=== PATIENT | male | born 1965 | race Caucasian/White ===

== ENCOUNTER 2019-07-03 22:29 | Inpatient (IN) | payer MEDICARE, SELFPAY ==
[2019-07-04] VITALS (9 sets, daily range): BP systolic 107–143; BP diastolic 72–89; PULSE 67–91; RESP 15–19; TEMP 36.4–37.1; O2SAT 91–97
--- NOTE | 2019-07-04 01:35 | PC.NURSE ---
Late entry: during downtime critical blood sugar of 714. Dr. Reilly called see physician notification. Critical blood sugar and critical troponin did not reflux over at during this time due to down time. Troponin was 1057 and Delta was 1043.
--- NOTE | 2019-07-04 03:00 | ECG_ITS ---
Measurements Intervals [place] Rate: 74 P: -16 NH: 199 QRS: -51 QRSD: 110 T: 14 QT: 354 QTc: 395 SINUS RHYTHM PATTERN CONSISTENT WITH PULMONARY DISEASE INFERIOR MYOCARDIAL INFARCTION [40+ ms Q WAVE AND/OR ST/T ABNORMALITY IN II/aVF], OF OF OF OF OF INDETERMINATE AGE WITH POSTERIOR EXTENSION No previous ECG available for comparison [email or web address]
[2019-07-04 03:14] LABS: Add RBC Morph No
[2019-07-04 03:18] LABS: Basophils % 0.3 %; Hematocrit 36.1 % (42.0-52.0); Hemoglobin 12.3 g/dL (11.7-16.6); Lymphocytes # 3.4 10^3/uL (0.8-4.8); Mean Corpuscular HGB Conc 34.1 g/dL (30.0-36.0); Mean Corpuscular Hemoglobin 30.1 pg (28.0-34.0); Mean Corpuscular Volume 88.5 fL (80-94); Mean Platelet Volume 8.9 fL (7.4-10.4); Monocytes # 1.3 10^3/uL (0.2-0.9); Monocytes % 20.6 %; Neutrophils # 1.5 10^3/uL (1.8-7.7); Neutrophils % 23.7 %; Nucleated Red Blood Cells % 0 %; Platelet Count 200 10^3/cmm (130-400); Red Blood Count 4.08 10^6/uL (4.1-5.3); Red Cell Distribution Width 15.9 % (12.1-15.1); White Blood Count 6.3 10^3/uL (4.0-10.0)
[2019-07-04 03:35] LABS: Anion Gap 13.7 (5-19); Blood Urea Nitrogen 17 mg/dL (6-20); Calcium 9.1 mg/Dl (8.6-10.0); Carbon Dioxide 26 mmol/L (22-29); Chloride 93 mmol/L (98-107); Glomerular Filtration Rate 77.3 mL/min (90-130); Glucose 480 mg/dL (74-109); Potassium 4.7 mmol/L (3.5-5.1); Sodium 128 mmol/L (136-145)
[2019-07-04 03:48] LABS: Troponin 5 6HR 5265 ng/L (0-15)
[2019-07-04 03:56] LABS: Troponin 5 6HR Delta 5251 ng/L (0-12)
--- NOTE | 2019-07-04 04:32 | PC.NURSE ---
TR band off at this time. dressing applied. Aggrastat infusing as ordered at 19.4mls . No hematoma noted and dressing is clean, dry and intact. See chart for post cath vitals.
[2019-07-04] MEDS: oxyCODONE IR 30 mg Tablet PO (09:15)
[2019-07-04] MEDS: nicotine 21 mg Patch 1 PATCH TRANSDERMA (09:15)
[2019-07-04] MEDS: losartan 50 mg Tablet 25 MG PO (09:15)
[2019-07-04] MEDS: metoprolol tartrate 50 mg Tablet PO (09:15)
[2019-07-04] MEDS: PARoxetine 20 mg Tablet PO ×2 (09:16→18:22)
[2019-07-04] MEDS: baclofen 10 mg Tablet PO ×2 (09:17→18:22)
[2019-07-04] MEDS: clopidogrel 75 mg Tablet PO (09:17)
[2019-07-04] MEDS: aspirin 81 mg EC Tablet PO (09:17)
[2019-07-04] MEDS: omega-3 fatty acids 1,000 mg Capsule 1000 MG PO (09:17)
--- NOTE | 2019-07-04 09:40 | PM.PN ---
Subjective Subjective: Interval history: Maximino was admitted late last evening with an acute inferior wall OR. His right coronary artery was occluded and he underwent balloon angioplasty and stenting of the right. No complications. The procedure done from the right radial artery. Overnight no complications. He has had no heart failure and no arrhythmias. This morning he is free of any chest discomfort. The entry site of the right radial artery is flat, dry without hematoma or bleeding. Medications: Reviewed: Yes Vitals/I&O/Wt Last Vital Signs Temp 97.9 F 07/04/19 06:00 Pulse 73 07/04/19 06:00 Resp 17 07/04/19 06:00 BP 107/74 07/04/19 06:00 Pulse Ox 96 07/04/19 06:00 07/03/19 07/04/19 07/04/19 22:59 06:59 14:59 Intake Total 1500 / 1500 Balance 1500 / 1500 Weight last 48 hrs Weight 236 lb Physical Exam Narrative: EXAM NARRATIVE: GENERAL: Today he is comfortable at rest and without any chest pain HEENT: Exam within normal limits. NECK: Supple without jugular vein distention. The carotid upstroke is normal without bruits. BACK: Exam normal. LUNGS: Clear. HEART: Regular rate and rhythm. ABDOMEN: Benign without organomegaly or tenderness. EXTREMITIES: No edema. NEUROLOGIC: Exam normal. SKIN: Unremarkable. Data Labs: Other Labs: All Labs last 24 hrs except CBC/BMP 07/03/19 07/03/19 07/04/19 21:03 21:03 03:05 RBC 4.43 4.08 L MCV 90.5 88.5 MCH 29.3 30.1 MCHC 32.4 34.1 RDW 15.9 H 15.9 H MPV 9.0 8.9 Neut % (Auto) 27.1 23.7 Lymph % (Auto) 53.0 55.0 [place] % (Auto) 19.3 20.6 Eos % (Auto) 0.2 0.0 Baso % (Auto) 0.2 0.3 Neut # (Auto) 1.5 L 1.5 L Lymph # (Auto) 2.8 3.4 [place] # (Auto) 1.0 H 1.3 H Eos # (Auto) 0.0 0.0 Baso # (Auto) 0.0 0.0 Nucleated RBC % (a uto) 0 0 Nucleated RBCs # 0.0 0.0 GFR Calculation 57.1 L Random Glucose 861 H* Calcium 9.3 Total Bilirubin 0.2 AST 22 ALT 32 Alkaline Phosphata se 69 Troponin I 6 Hour Troponin I Hi Sens Del Troponin T Baselin e 14.00 Total Protein 7.3 Albumin 4.2 Globulin 3.1 07/04/19 07/04/19 03:05 03:05 RBC MCV MCH MCHC RDW MPV Neut % (Auto) Lymph % (Auto) [place] % (Auto) Eos % (Auto) Baso % (Auto) Neut # (Auto) Lymph # (Auto) [place] # (Auto) Eos # (Auto) Baso # (Auto) Nucleated RBC % (a uto) Nucleated RBCs # GFR Calculation 77.3 L Random Glucose Calcium 9.1 Total Bilirubin AST ALT Alkaline Phosphata se Troponin I 6 Hour 5265 H Troponin I Hi Sens Del 5251 H Troponin T Baselin e Total Protein Albumin Globulin A&P Assessment and plan (1) Acute ST elevation myocardial infarction (STEMI) of inferior wall: Status: Acute Code(s): I21.19 - ST elevation (STEMI) myocardial infarction involving other coronary artery of inferior wall (2) Diabetes mellitus: Status: Acute Code(s): E11.9 - Type 2 diabetes mellitus without complications (3) Coronary artery disease: Status: Acute Code(s): I25.10 - Atherosclerotic heart disease of [place] coronary artery without angina pectoris (4) Rheumatoid arthritis: Status: Acute Code(s): M06.9 - Rheumatoid arthritis, unspecified (5) Anemia: Status: Acute Code(s): D64.9 - Anemia, unspecified (6) Hypertension: Status: Acute Code(s): I10 - Essential (primary) hypertension (7) Dyslipidemia: Status: Acute Code(s): E78.5 - Hyperlipidemia, unspecified (8) Tobacco abuse: Status: Acute Code(s): Z72.0 - Tobacco use (9) COPD (chronic obstructive pulmonary disease): Status: Acute Code(s): J44.9 - Chronic obstructive pulmonary disease, unspecified (10) Obesity: Status: Acute Code(s): E66.9 - Obesity, unspecified (11) Chronic kidney disease: Status: Acute Code(s): N18.9 - Chronic kidney disease, unspecified (12) Dilutional hyponatremia: Status: Acute Code(s): E87.1 - Hypo-osmolality and hyponatremia Additional A&P Information Additional A&P Information: He is doing well today. No further chest pain. We will make proper medication adjustments. Still holding metformin and using insulin. Activity today. If well, discharge home tomorrow. Attestations Medical Necessity Statement*: Patient requires continued hospitalization for management of an acute inferior wall OR and severe elevations of blood sugar. 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
[2019-07-04 12:31] LABS: Glucose Point of Care 278 mg/dL (70-110)
[2019-07-04 17:34] LABS: Glucose Point of Care 158 mg/dL (70-110)
[2019-07-04] MEDS: atorvastatin 40 mg Tablet 80 MG PO (21:05)
[2019-07-04 21:13] LABS: Glucose Point of Care 172 mg/dL (70-110)
[2019-07-04] MEDS: ondansetron 2 mg/ML SDV 2 mL 4 MG IVP (22:19)
[2019-07-05] VITALS: BP 105/63; RESP 16; TEMP 36.8; O2SAT 96
[2019-07-05 04:00] VITALS: BP 127/80; PULSE 91; RESP 18; TEMP 36.6; O2SAT 90
[2019-07-05 07:30] LABS: Glucose Point of Care 184 mg/dL (70-110)
--- NOTE | 2019-07-05 07:54 | P.DS_ITS ---
Discharge Providers Date of Admission: 07/03/19 22:29 Date of Discharge: 07/05/19 Attending Provider at Admission: Rolando Kaufman Attending Provider at Discharge: Rolando Kaufman Primary Care Provider: Stephany Villalpando Diagnoses at Discharge Discharge Diagnosis (1) Acute ST elevation myocardial infarction (STEMI) of inferior wall: Status: Acute (2) Diabetes mellitus: Status: Acute (3) Coronary artery disease: Status: Acute (4) Rheumatoid arthritis: Status: Acute (5) Anemia: Status: Acute (6) Hypertension: Status: Acute (7) Dyslipidemia: Status: Acute (8) Tobacco abuse: Status: Acute (9) COPD (chronic obstructive pulmonary disease): Status: Acute (10) Obesity: Status: Acute (11) Chronic kidney disease: Status: Acute (12) Dilutional hyponatremia: Status: Acute Reason for Visit Reason for Visit: Reason For Visit: Stemi Brief History: Patient arrives on July 03 with chest pain typical of myocardial infarction. EKG revealed ST segment elevation in the inferior leads. Patient was hemodynamically stable. He received the appropriate medications in the emergency room and was directed to the cardiac catheterization laboratory. Hospital Course Hospital Course: Patient was taken directly to the cardiac catheterization laboratory. His right coronary artery was occluded in the midportion just beyond the previously placed stent. Balloon angioplasty and subsequent restenting of the area was accomplished without incident. The procedure was done from the right radial artery. No complications were encountered. Patient had no arrhythmias, heart block or congestive heart failure. The right radial artery entry site was without bleeding, hematoma or other vascular anomaly. The remainder of the hospital course was unremarkable without complication. Physical Exam Narrative: EXAM NARRATIVE: GENERAL: In general he looks and feels well HEENT: Exam within normal limits. NECK: Supple without jugular vein distention. The carotid upstroke is normal without bruits. BACK: Exam normal. LUNGS: Clear. HEART: Regular rate and rhythm. ABDOMEN: Benign without organomegaly or tenderness. EXTREMITIES: No edema. NEUROLOGIC: Exam normal. SKIN: Unremarkable. Discharge Data Data Completed and Pending: Labs from last 24 hours 07/05/19 07/04/19 07/04/19 07:15 21:07 17:20 POC Glucose 184 172 158 07/04/19 11:47 POC Glucose 278 Vitals: Last Vital Signs Temp 98 F 07/05/19 04:00 Pulse 91 07/05/19 04:00 Resp 18 07/05/19 04:00 BP 127/80 07/05/19 04:00 Pulse Ox 90 07/05/19 04:00 Discharge Plan Discharge Patient Disposition: Home, Self-Care Condition: Stable Prescriptions: New aspirin 81 mg Tablet,Delayed Release (Dr/Ec) 81 mg PO DAILY Qty: 30 RF: 8 metoprolol tartrate 50 mg Tablet 50 mg PO BID Qty: 60 RF: 12 clopidogrel 75 mg Tablet 75 mg PO DAILY Qty: 30 RF: 12 metformin 500 mg tablet 1,000 mg PO BID Qty: 60 RF: 3 Continued omega-3 fatty acids 1,000 mg Capsule 1,000 mg PO DAILY RF: 0 sulfamethoxazole-trimethoprim 800-160 mg Tablet 1 tab PO QMWF RF: 0 methotrexate sodium 2.5 mg Tablet See Rx Instructions .ROUTE .COMPLEX RF: 0 pantoprazole 40 mg Tablet,Delayed Release (Dr/Ec) 40 mg PO BID RF: 0 Nitrostat 0.4 mg Tablet, Sublingual 0.4 mg SUBLINGUAL Q5M PRN (Reason: Chest Pain) RF: 0 irbesartan 75 mg Tablet 75 mg PO DAILY RF: 0 lovastatin 20 mg Tablet 20 mg PO BEDTIME RF: 0 magnesium oxide 250 mg magnesium Tablet 250 mg PO BID RF: 0 tizanidine 4 mg Capsule 4 mg PO DAILY PRN (Reason: MUSCLE SPASMS) RF: 0 folic acid 0.8 mg Capsule 0.4 mg PO DAILY RF: 0 duloxetine 30 mg Capsule, Delayed Rel Sprinkle 30 mg PO BID RF: 0 Saccharomyces boulardii 250 mg 250 mg PO DAILY RF: 0 Discontinued metformin 500 mg Tablet 500 mg PO BID RF: 0 Discharge Orders: Discharge Order (Routine); Ordered 07/05/19 Ordered By: Rolando Kaufman Referrals: Rolando Kaufman MD [Physician] - 3 months Cheryl Weeks FNP [Nurse Practitioner] - 7-10 days Discharge Diet: Diabetic Activity Restrictions/Additional Instructions: 1. No lifting over 10 pounds for two days. Gradually increase activity over the next week or 2. Hold metformin for 2 days. Restart July 07 at the increased dose of 1000 mg twice daily Discharge Attestations Time Spent in Discharge Care*: greater than 30 min Specific Discharge Activities: Specific discharge activities: educating patient, educating and/or supporting family/caregiver and documenting/other paperwork Time Spent in Smoking Cessation: Time spent discussing smoking cessation with patient: 3 to 10 minutes Status at Discharge: Cognitive status at discharge: cognitively intact , Behavioral status at discharge: cooperative , Functional status at discharge: independent ambulation Overall status at discharge: patient is back to baseline Quality Metrics Clinical Quality Measures During this hospital stay, did patient experience: AMI Clinical Trial Participant: No Contraindication to aspirin (AMI): Aspirin given Contraindication to statin: Statin prescribed Contraindication to PCI: PCI performed Contraindication to Fibrinolytics: Alternative treatment initiated Coding Level of Care Code New Pt Acute Mental Health Professional for Chg Fwd Patient Type New Medical Decision Making Moderate Complexity Diagnoses Acute ST elevation myocardial infarction (STEMI) of inferior wall I21.19 Diabetes mellitus E11.9 Coronary artery disease I25.10 Rheumatoid arthritis M06.9 Anemia D64.9 Hypertension I10 Dyslipidemia E78.5 Tobacco abuse Z72.0 COPD (chronic obstructive pulmonary disease) J44.9 Obesity E66.9 Chronic kidney disease N18.9 Dilutional hyponatremia E87.1 Time Spent (min) 60
[2019-07-05 08:19] VITALS: BP 124/77; PULSE 101; RESP 18; O2SAT 95
[2019-07-05 08:47] VITALS: BP 124/77; PULSE 86; RESP 15; TEMP 37.1; O2SAT 96
[2019-07-05] MEDS: metoprolol tartrate 50 mg Tablet PO (09:20)
[2019-07-05] MEDS: losartan 50 mg Tablet 25 MG PO (09:21)
[2019-07-05] MEDS: pneumococcal (23 valent) SDV 0.5 mL IM (09:23)
--- NOTE | 2019-07-05 09:32 | PC.NURSE ---
PATIENT AND GIVEN DISCHARGE INSTRUCTIONS AND BOTH VERBALIZED UNDERSTANDING ; VSS ; IV X2 REMOVED AND PRESSURE DRESSING APPLIED WITH NO BLEEDING NOTED ; DISTAL PULSES PRESENT ; PATIENT DENIES ANY SOB OR CP AT THIS TIME ; PATIENT REQUESTED TO AMBULATE TO EXIT ; PATIENT TO POV WITH NO ISSUES
--- NOTE | 2019-07-05 09:42 | PC.NURSE ---
4 NEW RX WERE NOT TRANSMITTED ; SUPER USER NOTIFIED ; 4 NEW RX PHONED INTO PREFERRED PHARMACY
== END 2019-07-05 09:18 | disposition home or self-care (01) | DRG 247 ==
PROVIDERS: Admitting Provider Internal Medicine Cardiovascular Disease; Emergency Provider Emergency Medicine; Family Provider Nurse Practitioner; PCP Nurse Practitioner; Visit Provider Internal Medicine Cardiovascular Disease
DX: I21.19 ST elevation (STEMI) myocardial infarction involving other coronary artery of inferior wall (principal); E87.1 Hypo-osmolality and hyponatremia; I25.10 Atherosclerotic heart disease of native coronary artery without angina pectoris; I25.2 Old myocardial infarction; M06.9 Rheumatoid arthritis, unspecified; E11.22 Type 2 diabetes mellitus with diabetic chronic kidney disease; I12.9 Hypertensive chronic kidney disease with stage 1 through stage 4 chronic kidney disease, or unspecified chronic kidney disease; N18.9 Chronic kidney disease, unspecified; E78.5 Hyperlipidemia, unspecified; F17.210 Nicotine dependence, cigarettes, uncomplicated; E66.9 Obesity, unspecified; Z68.35 Body mass index [BMI] 35.0-35.9, adult; G89.29 Other chronic pain; D64.9 Anemia, unspecified; J44.9 Chronic obstructive pulmonary disease, unspecified
CPT/HCPCS: 36415; 36416; 71045; 80048; 80053; 82947; 82962; 84484; 85025; 90732; 93005; 93458; 96374; 99285; C1725; C1769; C1874; C1887; C1894; C9606; J1644; J1815; J2001; J2250; J2405; J3010; J3246; J3490; Q9967

== ENCOUNTER → 2019-07-16 11:25 | Outpatient (BNVA) | payer MEDICARE, SELFPAY | PROVIDERS: Family Provider Nurse Practitioner; PCP Nurse Practitioner; Visit Provider Nurse Practitioner Family | DX: Z09 Encounter for follow-up examination after completed treatment for conditions other than malignant neoplasm (principal); I25.10 Atherosclerotic heart disease of native coronary artery without angina pectoris; I21.19 ST elevation (STEMI) myocardial infarction involving other coronary artery of inferior wall; E78.5 Hyperlipidemia, unspecified; I12.9 Hypertensive chronic kidney disease with stage 1 through stage 4 chronic kidney disease, or unspecified chronic kidney disease; N18.9 Chronic kidney disease, unspecified | CPT/HCPCS: 80048 ==

== ENCOUNTER → 2019-08-31 11:17 | Outpatient (BNVA) | payer MEDICARE, SELFPAY | PROVIDERS: Family Provider Nurse Practitioner; PCP Nurse Practitioner; Visit Provider Nurse Practitioner | DX: E78.5 Hyperlipidemia, unspecified (principal); E11.9 Type 2 diabetes mellitus without complications; I10 Essential (primary) hypertension; D72.820 Lymphocytosis (symptomatic) | CPT/HCPCS: 80053; 80061; 83036; 85025 ==

== ENCOUNTER → 2019-09-24 10:51 | Outpatient (BNVA) | payer MEDICARE, SELFPAY | PROVIDERS: Family Provider Nurse Practitioner; PCP Nurse Practitioner; Visit Provider Nurse Practitioner | DX: D64.9 Anemia, unspecified (principal) | CPT/HCPCS: 85025 ==

== ENCOUNTER → 2019-10-16 11:43 | Outpatient (BNVA) | payer MEDICARE, SELFPAY | PROVIDERS: Family Provider Nurse Practitioner; PCP Nurse Practitioner; Visit Provider Nurse Practitioner | DX: D72.820 Lymphocytosis (symptomatic) (principal); D64.9 Anemia, unspecified | CPT/HCPCS: 80053; 85025 ==

== ENCOUNTER → 2019-10-18 14:46 | Outpatient (BNVA) | payer MEDICARE, SELFPAY | PROVIDERS: Family Provider Nurse Practitioner; PCP Nurse Practitioner; Visit Provider Nurse Practitioner | DX: D72.820 Lymphocytosis (symptomatic) (principal) | CPT/HCPCS: 83615 ==

== ENCOUNTER → 2019-10-19 09:55 | Outpatient (BNVA) | payer MEDICARE, SELFPAY | PROVIDERS: Family Provider Nurse Practitioner; PCP Nurse Practitioner; Visit Provider Nurse Practitioner | DX: D64.9 Anemia, unspecified (principal) | CPT/HCPCS: 85025 ==

== ENCOUNTER → 2019-11-21 09:48 | Outpatient (BNVA) | payer MEDICARE, SELFPAY | PROVIDERS: Family Provider Nurse Practitioner; PCP Nurse Practitioner; Visit Provider Internal Medicine | DX: D72.820 Lymphocytosis (symptomatic) (principal) | CPT/HCPCS: 80053; 83615; 85025 ==

== ENCOUNTER → 2020-01-14 11:02 | Outpatient (BNVA) | payer MEDICARE, SELFPAY | PROVIDERS: Family Provider Nurse Practitioner; PCP Nurse Practitioner; Visit Provider Nurse Practitioner | DX: E11.9 Type 2 diabetes mellitus without complications (principal); F41.1 Generalized anxiety disorder; I10 Essential (primary) hypertension; E78.5 Hyperlipidemia, unspecified; K21.9 Gastro-esophageal reflux disease without esophagitis; M54.5 Low back pain; E66.9 Obesity, unspecified; Z12.5 Encounter for screening for malignant neoplasm of prostate; M06.9 Rheumatoid arthritis, unspecified | CPT/HCPCS: 80053; 82955; 83036; 83615; 85025; G0103 ==

== ENCOUNTER → 2020-02-26 10:15 | Outpatient (BNVA) | payer MEDICARE, SELFPAY | PROVIDERS: Family Provider Nurse Practitioner; PCP Nurse Practitioner; Visit Provider Internal Medicine | DX: D72.820 Lymphocytosis (symptomatic) (principal) | CPT/HCPCS: 80053; 83615; 85025 ==

== ENCOUNTER → 2020-03-28 09:56 | Outpatient (BNVA) | payer MEDICARE, SELFPAY | PROVIDERS: PCP Nurse Practitioner; Visit Provider Family Medicine | DX: M05.9 Rheumatoid arthritis with rheumatoid factor, unspecified (principal) | CPT/HCPCS: 80053; 85025 ==

== ENCOUNTER → 2020-04-29 13:39 | Outpatient (BNVA) | payer MEDICARE, SELFPAY | PROVIDERS: PCP Nurse Practitioner; Visit Provider Internal Medicine | DX: D72.820 Lymphocytosis (symptomatic) (principal) | CPT/HCPCS: 80053; 83615; 85007 ==

== ENCOUNTER → 2020-05-21 08:31 | Outpatient (BNVA) | payer MEDICARE, SELFPAY | PROVIDERS: PCP Nurse Practitioner; Visit Provider Nurse Practitioner Family | DX: Z20.828 Contact with and (suspected) exposure to other viral communicable diseases (principal) | CPT/HCPCS: 87635 ==

== ENCOUNTER → 2020-05-27 13:32 | Outpatient (BNVA) | payer MEDICARE, SELFPAY | PROVIDERS: PCP Nurse Practitioner; Visit Provider Internal Medicine | DX: D72.820 Lymphocytosis (symptomatic) (principal) | CPT/HCPCS: 80053; 83615; 85025 ==

== ENCOUNTER → 2020-06-18 11:21 | Outpatient (BNVA) | payer MEDICARE, SELFPAY | PROVIDERS: PCP Nurse Practitioner; Visit Provider Nurse Practitioner Adult Health | DX: M05.79 Rheumatoid arthritis with rheumatoid factor of multiple sites without organ or systems involvement (principal); Z79.899 Other long term (current) drug therapy | CPT/HCPCS: 82784; 82785; 86480; 86704; 86706; 86803; 87340; 87389 ==

== ENCOUNTER → 2020-07-01 10:00 | Outpatient (BNVA) | payer MEDICARE, SELFPAY | PROVIDERS: PCP Nurse Practitioner; Visit Provider Family Medicine | DX: D72.820 Lymphocytosis (symptomatic) (principal) | CPT/HCPCS: 80053; 83615; 85025 ==

== ENCOUNTER → 2020-08-11 11:13 | Outpatient (BNVA) | payer MEDICARE, SELFPAY | PROVIDERS: PCP Family Medicine; Visit Provider Surgery | DX: R13.10 Dysphagia, unspecified (principal) | CPT/HCPCS: 87635 ==

== ENCOUNTER 2020-08-14 08:14 | Day surgery (SDC) | payer MEDICARE, SELFPAY ==
[2020-08-04 09:55] VITALS: BMI 31.4
[2020-08-14 08:55] VITALS: BP 116/78; PULSE 73; RESP 18; TEMP 37; O2SAT 99
[2020-08-14] MEDS: sodium chloride 0.9% 1,000 ML 30 ML IV (09:07)
[2020-08-14 09:11] LABS: Glucose Point of Care 84 mg/dL (70-110)
--- NOTE | 2020-08-14 09:20 | P.HP_ITS ---
Same Day Surgery H&P Indication for Procedure/HPI DATE OF PROCEDURE: August 14, 2020 CHIEF COMPLAINT/INDICATIONFOR SURGICAL PROCEDURE: dysphagia PREOP DIAGNOSIS: panendoscopy PLANNED PROCEDRUE: Operation Date: 08/14/20 09:35 Proposed Procedures p EGD Dilation W/ Balloon 81589 R13.10(Not Applicable) - Wayne Banks MD Medications/Allergies* Home Medications Medication Instructions Recorded Confirmed Type folic acid 0.4 mg PO DAILY 07/04/19 08/12/20 History magnesium oxide 250 mg PO BID 07/04/19 08/12/20 History nitroglycerin [Nitrostat] 0.4 mg SUBLINGUAL Q5M PRN 07/04/19 08/12/20 History hydroxychloroquine 200 mg tablet 400 mg PO DAILY tab 07/16/19 08/12/20 History methotrexate sodium 2.5 mg tablet 12.5 mg .ROUTE .bid once a week 09/06/19 08/12/20 History tab prednisone 5 mg tablet 5 mg PO DAILY tab 05/21/20 08/12/20 History esomeprazole magnesium 40 mg 40 mg PO DAILY 06/23/20 08/12/20 History capsule,delayed release Allergies/Adverse Reactions Allergy/AdvReac Type Severity Reaction Status Date / Time lisinopril Allergy Intermediate ADR-Cough Verified 08/12/20 13:38 Current Medications: Generic Name Dose Route Start Last Admin Trade Name Freq PRN Reason Stop Dose Admin Sodium Chloride 1,000 mls @ 30 mls/hr 08/14/20 08:45 08/14/20 09:07 Sodium Chloride 0.9% IV 08/15/20 08:44 30 mls/hr .Q24H DANIEL Administration Pertinent History/Comorbid Conditions* Medical History (Updated 07/14/20 @ 11:10 by Wayne Banks MD) Anemia Atypical lymphocytosis Chronic kidney disease COPD (chronic obstructive pulmonary disease) Coronary artery disease Diabetes mellitus Dilutional hyponatremia (~07/2019) Dyslipidemia Gastro-esophageal reflux disease without esophagitis Generalized anxiety disorder History of heart attack Hypertension Lumbago Rheumatoid arthritis Surgical History (Updated 09/23/19 @ 22:28 by DAVID Davies) H/O heart artery stent History of colonoscopy History of endoscopy Family History (Updated 09/23/19 @ 22:26 by Glennette R Kwasi, MEDIA LIAISON OFFICER-C) Diabetes Family/Other Family members in general Hypothyroid Family/Other Family members in general Cancer Family/Other Family members in general Social History Smoking and tobacco status: current some day smoker cigarettes Packs smoked per day: 1 Years cigarettes smoked: 30 Quit status (tobacco): quit date established Second hand smoke exposure: No Smoking risk assessment/counseling performed?: No Alcohol intake: never Desire information about alcohol rehabilitation?: No Counseling given: No Desire information about substance/drug rehabilitation?: No Counseling given: No Caregiver/support person: No Lives independently: Yes Household members: significant other Marital status: Single History of recent travel: No Current gender identity: Male Pertinent Exam Findings alert, oriented x 3 and regular rate & rhythm Recommendations Surgery/Procedure today Coding Level of Care Code 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
--- NOTE | 2020-08-14 09:48 | ANES.PREANE2 ---
Pre-Anesthetic Assessment Pre-Anesthetic Assessment: Height/Weight: Height 1.75 m Weight 96.615 kg Temp Pulse Resp BP Pulse Ox 98.6 F 73 18 116/78 99 08/14/20 08:55 08/14/20 08:55 08/14/20 08:55 08/14/20 08:55 08/14/20 08:55 Preop Diagnosis: panendoscopy Proposed Procedure: Operation Date: 08/14/20 09:35 Proposed Procedures p EGD Dilation W/ Balloon 90105 R13.10(Not Applicable) - Wayne Banks MD Was Beta Jenna taken within 24 hours: N/A Last intake: Intake Last Liquid Date 08/14/20 Last Liquid Time 06:30 Last Solid Date 08/13/20 Last Solid Time 18:00 Social: Social History: Tobacco and No alcohol Exam: Pre-Anes Outpt Exam: alert, oriented x 3 and regular rate & rhythm Airway: Submandibular: WNL Cervical ROM: WNL MP: 2 Dentition: Full Pulmonary: Pulmonary: COPD CV/HEM: CV/HEM: Anemia, CAD (stents), HTN and TX : : Chronic renal Insufficiency Musc/skel: Musc/skel: RA Neuropsych: Neuropsych: Anxiety Anesthetic Plan: ASA status: 3 Anesthesia: Choice Risk of > 500 ml blood loss (7ml/kg in children): No Meds/Allergies Current Medications: Current Medications Generic Name Dose Route Start Last Admin Trade Name Freq PRN Reason Stop Dose Admin Sodium Chloride 1,000 mls @ 30 ml s/hr 08/14/20 08:45 08/14/20 09:07 Sodium Chloride 0.9% IV 08/15/20 08:44 30 mls/hr .Q24H DANIEL Administration PFSH Anesthesia PFSH: Medical History (Updated 07/14/20 @ 11:10 by Wayne Banks MD) Anemia Atypical lymphocytosis Chronic kidney disease COPD (chronic obstructive pulmonary disease) Coronary artery disease Diabetes mellitus Dilutional hyponatremia (~07/2019) Dyslipidemia Gastro-esophageal reflux disease without esophagitis Generalized anxiety disorder History of heart attack Hypertension Lumbago Rheumatoid arthritis Surgical History H/O heart artery stent History of colonoscopy History of endoscopy Family History Family/Other Cancer Family members in general Diabetes Family members in general Hypothyroid Family members in general Social History Smoking and tobacco status: current some day smoker cigarettes Packs smoked per day: 1 Years cigarettes smoked: 30 Quit status (tobacco): quit date established Second hand smoke exposure: No Smoking risk assessment/counseling performed?: No Alcohol intake: never Desire information about alcohol rehabilitation?: No Counseling given: No Desire information about substance/drug rehabilitation?: No Counseling given: No Caregiver/support person: No Lives independently: Yes Household members: significant other Marital status: Single History of recent travel: No Current gender identity: Male Data Anesthesia Other Labs: Laboratory Results - last 48 hr 08/14/20 09:06 POC Glucose 84 Cardiac Studies: No Data to Display
[2020-08-14 11:04] VITALS: BP 107/67; PULSE 68; RESP 16; TEMP 36.4; O2SAT 99
--- NOTE | 2020-08-14 11:06 | CT_ITS ---
WS: [id number] CT CHEST, ABDOMEN, AND PELVIS TECHNIQUE: Contrast-enhanced CT of the chest, abdomen, and pelvis with coronal and sagittal reformatt ed images. CLINICAL INFORMATION: Esophageal mass on EGD COMPARISON: CT chest and CT September 22, 2017 DLP: 2059.[address] scans at [facility] use at least one of these dose optimization techniques: automat ed exposure control; mA and/or kV adjustment per patient size (includes targeted exams where dose is matched to clinical indication); or iterative reconstruction. CT CHEST: Mild chronic emphysematous changes. No acute pulmonary infiltrates. No focal pneumonia or pleural flu id. Noncalcified subpleural nodule in the left upper lobe measuring 5 mm. This is unchanged from prev ious. Noncalcified 3 mm nodule left lower lobe unchanged. Additional tiny subpleural nodule left uppe r lobe. Calcified granuloma left lower lobe. Normal thyroid gland. Normal caliber thoracic aorta. Aortic calcification. Coronary calcification. No axillary lymphadenopathy. No mediastinal or hilar lymphadenopathy. Diffuse circumferential thickening involving the distal esophagus at the gastroesophageal junction co mpatible with neoplasm seen on the recent endoscopy. Associated luminal narrowing. A few slightly pro minent paraesophageal lymph nodes distal third esophagus. Largest measures [address] ABDOMEN AND PELVIS: Normal liver. Normal gallbladder. Portal veins and splenic vein are patent. Normal spleen and superio r mesenteric vein. Splenic granulomas. A few slightly enlarged upper abdominal lymph nodes along the celiac axis and [place] hepatis largest measuring up to 11 to 12 mm. Sigmoid diverticulosis. No evidence of small or large bowel obstruction. Scattered stool in the colon . Incidental fat-containing umbilical hernia. Normal caliber abdominal aorta. Mild aortic calcificati on. No periaortic or retroperitoneal lymphadenopathy. Adrenal glands are normal. Normal renal parenchymal enhancement. No hydronephrosis. No pelvic or ingu inal lymphadenopathy. Disc osteophyte complexes at L2-L3, L3-L4 and L4-L5 in the lumbar spine with mo derate central canal stenosis. CT/CT chest abd pel w con* IMPRESSION: 1. Diffuse circumferential thickening involving the distal esophagus at the GE junction compatible with neoplasm as seen on the recent endoscopy. 2. A few prominent paraesophageal lymph nodes in the distal one third esophagu s largest measuring 11 mm. These are nonspecific but consider metastatic diseas e. Recommend PET CT for further evaluation. 3. Additional slightly enlarged upper abdominal lymph nodes along the celiac a xis and [place] hepatis the largest measuring 11 to 12 mm nonspecific but suspici ous for metastatic disease. 4. No other evidence of metastatic disease. 5. No mediastinal or hilar lymphadenopathy. No axillary lymphadenopathy. 6. Stable subcentimeter pulmonary nodules in the left upper lobe and left lowe r lobe the largest measuring 5 mm unchanged. 7. No other significant findings.
[2020-08-14 11:19] VITALS: BP 96/53; PULSE 66; RESP 18; TEMP 36.3; O2SAT 100
--- NOTE | 2020-08-14 11:43 | SUR.PHASEII ---
patient re-evaluated by doctor Banks. Patient awaiting CT scan.
--- NOTE | 2020-08-14 11:48 | SUR.PHASEII ---
11:35 oral contrast given for patient s ct at 13:00.
--- NOTE | 2020-08-14 12:03 | ANE.PACU2 ---
Inpatient post-anesthesia follow up: Airway intact: Yes Vital signs: Temperature 97.4 F Pulse Rate 66 Respiratory Rate 18 Blood Pressure 96/53 Pulse Oximetry 100 Oxygen Delivery Me thod Room Air Oxygen Flow Rate 4 Fraction of Inspir ed Oxygen Hydration adequate: Yes Nausea and vomiting: No Pain level: 1 Mental status: Baseline
[2020-08-14 12:11] VITALS: BP 114/68; PULSE 58; RESP 18; O2SAT 98
[2020-08-14] MEDS: iohexol 300 mg/mL 100 mL Btl IV (13:02)
[2020-08-14] MEDS: iohexol 300 mg/mL 50 mL Btl PO (13:06)
[2020-08-25 06:29] LABS: Miscellaneous Test See Scanned Lab Rpt
[2020-08-25 06:30] LABS: Miscellaneous Test See Scanned Lab Rpt
== END 2020-08-14 13:29 | disposition home or self-care (01) ==
PROVIDERS: PCP Family Medicine; Visit Provider Surgery
DX: C15.9 Malignant neoplasm of esophagus, unspecified (principal); R13.10 Dysphagia, unspecified; J44.9 Chronic obstructive pulmonary disease, unspecified; I25.10 Atherosclerotic heart disease of native coronary artery without angina pectoris; E78.5 Hyperlipidemia, unspecified; E11.22 Type 2 diabetes mellitus with diabetic chronic kidney disease; I12.9 Hypertensive chronic kidney disease with stage 1 through stage 4 chronic kidney disease, or unspecified chronic kidney disease; N18.9 Chronic kidney disease, unspecified; F41.9 Anxiety disorder, unspecified; I25.2 Old myocardial infarction; M06.9 Rheumatoid arthritis, unspecified; F17.210 Nicotine dependence, cigarettes, uncomplicated; Z95.5 Presence of coronary angioplasty implant and graft
CPT/HCPCS: 12345; 36416; 43239; 71260; 74177; 82962; 88305; 88341; 88342; 88361; 88367; 88374; J2704; J7030; Q9967

== ENCOUNTER 2020-08-22 09:18 | Outpatient (CLI) | payer MEDICARE, SELFPAY ==
[2020-08-22 09:54] LABS: Basophils % 0.8 %; Eosinophils # 0.1 10^3/uL (0.0-0.8); Eosinophils % 1.3 %; Hematocrit 34.2 % (42.0-52.0); Lymphocytes # 1.8 10^3/uL (0.8-4.8); Lymphocytes % 45.3 %; Mean Corpuscular HGB Conc 29.2 g/dL (30.0-36.0); Mean Corpuscular Hemoglobin 25.3 pg (28.0-34.0); Mean Corpuscular Volume 86.6 fL (80-94); Mean Platelet Volume 8.3 fL (7.4-10.4); Monocytes # 0.8 10^3/uL (0.2-0.9); Monocytes % 19.7 %; Neutrophils # 1.29 10^3/uL (1.8-7.7); Neutrophils % 32.6 %; Nucleated Red Blood Cells % 0 %; Platelet Count 352 10^3/cmm (130-400); Red Blood Count 3.95 10^6/uL (4.1-5.3); Red Cell Distribution Width 22.2 % (12.1-15.1)
[2020-08-22 10:11] LABS: Lactate (Lactic Acid level) 1.5 mmol/L (0.5-2.2)
[2020-08-22 10:32] LABS: Alanine Aminotransferase 12 U/L (0-41); Albumin Level 3.9 g/dL (3.5-5.2); Alkaline Phosphatase 81 IU/L (40-130); Anion Gap 12.9 (5-19); Aspartate Amino Transferase 18 U/L (0-40); Blood Urea Nitrogen 11 mg/dL (6-20); Calcium 8.9 mg/dL (8.5-10.5); Carbon Dioxide 29 mmol/L (22-29); Chloride 98 mmol/L (98-107); Globulin 3.4 g/dL (1.3-4.6); Glucose 76 mg/dL (65-115); Osmolality Calculated 280 mOsm/kg (285-295); Potassium 3.9 mmol/L (3.5-5.1); Sodium 136 mmol/L (136-145); Thyroid Stimulating Hormone 5.27 uIU/mL (0.27-4.20); Total Bilirubin 0.2 mg/dL (0.15-1.2); Total Protein 7.3 g/dL (6.6-8.7); Vitamin B12 731 pg/mL (232-1245)
[2020-08-22 11:00] LABS: Folate Level > 20.0 ng/mL (4.5-32.2)
== END 2020-08-22 09:19 | disposition home or self-care (01) ==
LOC: ONCMED 09:22
PROVIDERS: PCP Family Medicine; Visit Provider Internal Medicine
DX: C91.Z0 Other lymphoid leukemia not having achieved remission (principal); D50.9 Iron deficiency anemia, unspecified
CPT/HCPCS: 80053; 82607; 82746; 83605; 84443; 85025

== ENCOUNTER 2020-09-16 09:39 | Outpatient (CLI) | payer MEDICARE, SELFPAY ==
[2020-09-16 10:11] LABS: Basophils % 0.6 %; Eosinophils # 0.1 10^3/uL (0.0-0.8); Eosinophils % 1.5 %; Hematocrit 34.2 % (42.0-52.0); Lymphocytes # 2.6 10^3/uL (0.8-4.8); Lymphocytes % 55.1 %; Mean Corpuscular HGB Conc 29.2 g/dL (30.0-36.0); Mean Corpuscular Hemoglobin 25.8 pg (28.0-34.0); Mean Corpuscular Volume 88.1 fL (80-94); Mean Platelet Volume 8.2 fL (7.4-10.4); Monocytes # 0.6 10^3/uL (0.2-0.9); Monocytes % 12.4 %; Neutrophils # 1.42 10^3/uL (1.8-7.7); Neutrophils % 30.4 %; Nucleated Red Blood Cells % 0 %; Platelet Count 281 10^3/cmm (130-400); Red Blood Count 3.88 10^6/uL (4.1-5.3); Red Cell Distribution Width 19.9 % (12.1-15.1); White Blood Count 4.7 10^3/uL (4.0-10.0)
--- NOTE | 2020-09-19 12:13 | ONC FU_ITS ---
Dr. Ramachandran follow up note Patient: Maximino Sandoval Unit #: [id number]: [id number] Dicatated By: Asaf Ramachandran M.D.Date of Visit:Sep 16, 2020 Onc Med Follow-up/Prog Note History of Present Illness: Mr. Maximino Sandoval, is a 55-year-old gentleman with history of T- LGL, on methotrexate/prednisone started on April 27, 2019, ultrasound abdomen done on August 01, 2020 showed spleen size normal. And history of rheumatoid arthritis diagnosed in 2004 now on prednisone, HCQ, methotrexate, Patient underwent EGD on August 14, 2020 for macrocytic anemia and progressive dysphagia, which showed at 35 cm from incisors esophageal thickening have circumferential, friable, easily bleeding lesion biopsy was done which showed moderately poorly differentiated invasive adenocarcinoma, CT scan of chest abdomen pelvis done on 11/11/2020 showed diffuse circumferential distal esophageal/GE junction thickening, few enlarged paraesophageal lymph nodes largest is 1.1 cm, slightly enlarged celiac and quinton hepatic lymph nodes and subcentimeter lung nodules left upper lobe and left lower lobe less than 5 mm. On September 11, [address] PET scan at [facility] which showed metastatic disease above and below diaphragm including multiple abdominal lymph nodes, hepatic lesions, largest is 3.3 x 3.1 cm with hepatic segment 7 SUV 11.1 osseous metastatic disease, lytic lesion centered in C5 vertebral body and left L2 pedicle and in the right fourth rib anterior his labs checked on 09/19/2017 showed white blood count 8.5 hemoglobin 10.2 crit 31.2 MCV 82.8 platelet counts 568,000 and B12 was 462 iron was 11 normal being 65-175 reticulocyte count was 1.1 ferritin was 382.4 normal being 26 to 388, folate was 9.20 reticulocyte count was 1.1 His hemoglobin improved to 11.5 g on 10/26/2017 with discontinue of methotrexate and thrombocytosis also resolved and at that time patient was advised to follow with his PMD and to come to clinic on as-needed basis. 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 Patient was sent to hematology clinic for evaluation for neutropenia. As per patient xeljanz was discontinued month ago e.g. prior to this lab workup. Patient denies any specific complaints, no fever or chills, no nausea or vomiting, no sore throat, patient is on steroids for arthritis Skin biopsy from left subaxillary area done on 02/05/2019 showed chronic inflammation now being treated with topical agent per Dr. Haley hired hand in [facility]. 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 A reactive process cannot be entirely excluded No night sweats, no fever or chills, no weight loss, no peripheral lymphadenopathy. Came for follow-up, complaining of mild to moderate dysphagia to certain foods still tolerating semisolid. No hematemesis, no hemoptysis, no jaundice, no headaches blurred vision double, no new bony pains, no neck pain. Medications: Cymbalta 1 Capsule (of 20 mg) Capsule Delayed Release Particles Oral b.i.d., Ferrous Gluconate 1 (324 (37.5 fe) mg) Tablet Oral b.i.d., Fish Oil 1 (1200 mg) Capsule Oral daily, Folic Acid 1 (400 mcg) Tablet Oral daily, Irbesartan 1 (75 mg) Tablet Oral daily, Lovastatin 1 (20 mg) Tablet Oral daily, Pantoprazole Sodium 1 (40 mg) Tablet, enteric coated Oral daily, PARoxetine HCl 1 (20 mg) Tablet Oral b.i.d., PredniSONE 1 Tablet (of 20 mg) Oral b.i.d. Allergies: Lisinopril Review of Systems: Review of Systems is not available for this patient. Vital Signs: Performed on Sep 16, 2020 11:01 Height - 72.00 in Weight - 219.6 lbs (LOW) BSA - 2.22 sq.m BMI - 29.78 Temperature - 97.7 F (LOW) Pulse - 72 /min Respiration - 17 /min BP - 115/68 mm(hg) O2 Sat - 97 % Pain - 5 Performance Status: 1 - No physically strenuous activity, but ambulatory and able to carry out light or sedentary work (e.g. office work, light house work). (ECOG) Physical Examination: ENMT - No mouth sores, no thrush, no jaundice, Respiratory - Lungs are clear to auscultation, Cardiovascular - Regular rate and rhythm of heart, Abdomen - Soft, bowel sounds present, Extremities - No visible edema. Lab/Imaging: Most recent lab results are not available for this patient. 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 CT PET scan done on September 11, 2020 at [facility] shows mild thickening of the distal thoracic esophagus extending into gastric cardia with FDG uptake 21.2, Multiple hypermetabolic hepatic lesions largest is 3.3 x 3.1 cm in hepatic segment 7 SUV 11.1 Hypermetabolic lymphadenopathy within the gastrohepatic and retroperitoneal station, and para-aortic. There are hypermetabolic lytic lesion centered in C5 vertebral body, and left L2 pedicle, and anterior right fourth rib. 2 . 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 A reactive process cannot be entirely excluded. 3. Rheumatoid arthritis diagnosed in 2004 on prednisone, HCQ, methotrexate Bilateral subaxillary skin lesion questionable etiology, was referred to Dr. haley, hired hand in [facility], patient underwent skin biopsy from left subaxillary area, as per patient it shows chronic inflammation and now being treated with topical agent Plan: Discussed with patient regarding his labs white blood count 4.7 hemoglobin 10 hematocrit 34.2 platelets 281,[address] PET scan findings which shows metastatic esophageal cancer diagnosed at [facility] Clinically, patient is doing reasonably well now in mild to moderate distress due to progressive mild to moderate dysphagia due to newly diagnosed metastatic moderately to poorly differentiated adenocarcinoma of esophagus, CT scan of chest abdomen pelvis and CT PET scan confirmed metastatic disease to both side of diaphragm as well as bones. As per patient and his nurse and physician at [facility] told him palliative treatment is the only option At this point we will consider guardant 360 testing which include PD-L1 and HER-2/stephanie, based on that we will consider treatment planning in the meantime we will obtain Port-A-Cath placement andBiphosphonate's to prevent skeletal related complication and also consider MRI scan of C-spine with special attention to C5 then patient will return to clinic in 2 weeks for further discussion and planning. Signed By: Asaf Ramachandran M.D. <<Signature on File>>
== END 2020-09-16 09:40 | disposition home or self-care (01) ==
PROVIDERS: PCP Family Medicine; Visit Provider Internal Medicine Hematology & Oncology
DX: C15.9 Malignant neoplasm of esophagus, unspecified (principal); C77.8 Secondary and unspecified malignant neoplasm of lymph nodes of multiple regions; C78.7 Secondary malignant neoplasm of liver and intrahepatic bile duct; C79.51 Secondary malignant neoplasm of bone; M06.9 Rheumatoid arthritis, unspecified; L98.8 Other specified disorders of the skin and subcutaneous tissue; Z79.899 Other long term (current) drug therapy
CPT/HCPCS: 36415; 85025; 99214

== ENCOUNTER → 2020-09-23 10:24 | Outpatient (BNVA) | payer MEDICARE, SELFPAY | PROVIDERS: PCP Family Medicine; Visit Provider Internal Medicine | DX: D50.9 Iron deficiency anemia, unspecified (principal); D72.820 Lymphocytosis (symptomatic); C15.9 Malignant neoplasm of esophagus, unspecified | CPT/HCPCS: 80053; 82728; 83550; 83615; 85007; 85027; 85045 ==

== ENCOUNTER → 2020-09-25 10:02 | Outpatient (BNVA) | payer MEDICARE, SELFPAY | PROVIDERS: PCP Family Medicine; Visit Provider Surgery | DX: C15.9 Malignant neoplasm of esophagus, unspecified (principal) | CPT/HCPCS: 87635 ==

== ENCOUNTER 2020-09-29 07:02 | Day surgery (SDC) | payer MEDICARE, SELFPAY ==
[2020-09-26 16:40] VITALS: BMI 34.7
[2020-09-29] VITALS (7 sets, daily range): BP systolic 93–109; BP diastolic 59–68; PULSE 60–75; RESP 18–20; TEMP 36.1–36.9; O2SAT 95–100
--- NOTE | 2020-09-29 | SCC_ITS ---
Procedure Done: Placement of PowerPort in the left subclavian vein Fluoroscopic guidance and interpretation for placement of catheter 57.7 seconds of fluoroscopic guidance, for a cumulative dose of 12.50 mGy, was provided to Dr. Banks by the radiology department. C-arm images of the chest were saved for the patient's permanent record. [facility]
[2020-09-29] MEDS: sodium chloride 0.9% 1,000 ML 30 ML IV (07:37)
[2020-09-29 07:42] LABS: Glucose Point of Care 87 mg/dL (70-110)
[2020-09-29] MEDS: midazolam 1 mg/mL INJ 2 mL 2 MG IVP (07:52)
--- NOTE | 2020-09-29 08:04 | ANES.PREANE2 ---
Pre-Anesthetic Assessment Pre-Anesthetic Assessment: Height/Weight: Height 1.68 m Weight 97.522 kg Temp Pulse Resp BP Pulse Ox 98.4 F 75 18 106/68 96 09/29/20 07:34 09/29/20 07:34 09/29/20 07:34 09/29/20 07:34 09/29/20 07:34 Preop Diagnosis: Esophageal cancer Proposed Procedure: Operation Date: 09/29/20 09:35 Proposed Procedures p Portacath Placement 99272 C15.9(Not Applicable) - Wayne Banks MD Familial anesthetic complications: None Was Beta Jenna taken within 24 hours: N/A Was Clonidine taken within 24 hours: N/A Last intake: Intake Last Liquid Date 09/28/20 Last Liquid Time 17:30 Last Solid Date 09/28/20 Last Solid Time 17:30 Social: Social History: Tobacco and No alcohol Exam: Pre-Anes Outpt Exam: alert, oriented x 3, clear to auscultation bilaterally and regular rate & rhythm Airway: Cervical ROM: WNL MP: 4 Dentition: Full Additional comments: poor dentition, large neck Pulmonary: Pulmonary: COPD CV/HEM: CV/HEM: CAD (stents), HTN and OR : : Chronic renal Insufficiency GI: GI: GERD Metabolic: Metabolic: DM and Hyperlipidemia Musc/skel: Musc/skel: RA Anesthetic Plan: ASA status: 4 Anesthesia: General Other: patient has chronic gerd, which was pretty severe this morning. Still having active gerd now, but more mild. RSI Risk of > 500 ml blood loss (7ml/kg in children): No Meds/Allergies Current Medications: Current Medications Generic Name Dose Route Start Last Admin Trade Name Freq PRN Reason Stop Dose Admin Sodium Chloride 1,000 mls @ 30 ml s/hr 09/29/20 07:15 09/29/20 07:37 Sodium Chloride 0.9% IV 09/30/20 07:14 30 mls/hr .Q24H DANIEL Administration Midazolam HCl 2 mg 09/29/20 07:13 09/29/20 07:52 Midazolam 1 Mg/M l Inj 2 Ml IVP 2 mg Q5M PRN Administration Preop Anxiety PFSH Anesthesia PFSH: Medical History Anemia Atypical lymphocytosis Chronic kidney disease COPD (chronic obstructive pulmonary disease) Coronary artery disease Diabetes mellitus Dilutional hyponatremia (~07/2019) Dyslipidemia Esophageal adenocarcinoma Gastro-esophageal reflux disease without esophagitis Generalized anxiety disorder History of heart attack Hypertension Lumbago Rheumatoid arthritis Surgical History H/O heart artery stent History of colonoscopy History of endoscopy (08/14/20) Esophageal mass Family History Family/Other Cancer Family members in general Diabetes Family members in general Hypothyroid Family members in general Social History Smoking and tobacco status: current some day smoker cigarettes Packs smoked per day: 1 Years cigarettes smoked: 30 Quit status (tobacco): quit date established Second hand smoke exposure: No Smoking risk assessment/counseling performed?: No Alcohol intake: never Desire information about alcohol rehabilitation?: No Counseling given: No Desire information about substance/drug rehabilitation?: No Counseling given: No Caregiver/support person: No Lives independently: Yes Household members: significant other Marital status: Single History of recent travel: No Current gender identity: Male Data Anesthesia Other Labs: Laboratory Results - last 48 hr 09/29/20 07:38 POC Glucose 87 Cardiac Studies: No Data to Display
[2020-09-29] MEDS: fentaNYL 50 mcg/mL INJ 2mL IVP (08:17)
--- NOTE | 2020-09-29 08:22 | W.PM.OPSUD ---
Surgery/Procedure H&P Update DATE OF PROCEDURE: September 29, 2020 DATE H&P PERFORMED: 09/22/20 H&P UPDATE INFORMATION: I have reviewed H&P completed within last 30 days, I have examined patient prior to procedure and No changes to prior documentation PREOP DIAGNOSIS: Esophageal cancer PLANNED PROCEDURE: Operation Date: 09/29/20 09:35 Proposed Procedures p Portacath Placement 47267 C15.9(Not Applicable) - Wayne Banks MD
--- NOTE | 2020-09-29 08:27 | SC_ITS ---
WS: [id number] C-ARM RADIOGRAPHS CHEST; 2 IMAGES HISTORY: PORT COMPARISON: None available. Intraoperative imaging during LEFT subclavian PowerPort placement. The tip is not imaged. SC/C-arm FL for CVA [id number] IMPRESSION: Intraoperative imaging during Mediport placement.
[2020-09-29] MEDS: heparin, porcine 1,000 unit/mL INJ 10 mL 6000 UNIT IRRIGATION (09:15)
[2020-09-29] MEDS: lidocaine 1% INJ 20 mL 10 ML SUBCUT (09:29)
--- NOTE | 2020-09-29 09:50 | SUR.PHASEI ---
PT AWAKE ALERT LT CHEST WITH 2 SITES WITH DERMABOND D/I VSS.
[2020-09-29] MEDS: HYDROcodone-acetaminophen 5-325 mg Tablet 1 TAB PO (10:14)
--- NOTE | 2020-09-29 14:49 | ANE.PACU2 ---
Inpatient post-anesthesia follow up: Airway intact: Yes Vital signs: Temperature 97.8 F Pulse Rate 63 Respiratory Rate 18 Blood Pressure 109/67 Pulse Oximetry 100 Oxygen Delivery Me thod Room Air Oxygen Flow Rate 8 Fraction of Inspir ed Oxygen Hydration adequate: Yes Nausea and vomiting: No Pain level: 2 Mental status: Baseline
--- NOTE | 2020-09-29 16:03 | PM.OP ---
Operative Report Date of procedure: September 29, 2020 Pre-op Diagnosis: Metastatic esophageal cancer Post-op diagnosis: same Procedure Done: Placement of PowerPort in the left subclavian vein Fluoroscopic guidance and interpretation for placement of catheter Pathology: none sent Surgeon: Wayne Banks Anesthesia: MAC Condition: stable Disposition: PACU Procedure: The patient was taken to the Operating Room and the chest and neck bilaterally were prepped and draped in a sterile manner after the antibiotic had been administered and shoulder rolls had been placed. A total of 10 mL of 1% lidocaine with 0.5% Marcaine was infiltrated under the clavicle on the left side at the site of the planned entry into the subclavian vein. An introducer needle was then used to access the subclavian vein under the clavicle and after withdrawing blood syringe was removed and a guidewire passed under fluoroscopy into the superior vena cava. The site of the planned port was then marked on the chest and a 15 blade was used to make a 3 cm skin incision this was extended into the subcutaneous tissue using electrocautery and a subcutaneous pocket over the pectoralis fascia was created 2-0 Vicryl suture was used to suture the port to the pectoral fascia in the pocket on 3 sides. The catheter, after having been flushed with hep saline, was attached to the tunneler and a tunnel created between the port site and the subclavian vein entry site. Under fluoroscopy the dilator sheath was passed over the guidewire into the proximal superior vena cava. The inner dilator was removed and the sheath left behind and~ the catheter was introduced through the peel-away sheath with the tip in the superior vena cava. The peel-away sheath was removed. The proximal end of the catheter was cut to the right size and was attached to the port. Using a Early needle the port was accessed, it withdrew blood easily and flushed easily. A final 5cc of heparin was used to flush the PowerPort. The subcutaneous tissue was approximated using interrupted 3-0 Vicryl sutures and the skin at the introducer site and the port site was closed using subcuticular running 4-0 Monocryl sutures. Surgical glue was applied and the patient was stable throughout the procedure. Fluoroscopic guidance and interpretation was performed for introduction of the guidewire in the left subclavian vein, passage of dilator and placement of catheter tip in the distal superior vena cava.
== END 2020-09-29 10:35 | disposition home or self-care (01) ==
PROVIDERS: PCP Family Medicine; Visit Provider Surgery
PROC: (CPT 36561; principal; 2020-09-29 09:25)
DX: C15.9 Malignant neoplasm of esophagus, unspecified (principal); J44.9 Chronic obstructive pulmonary disease, unspecified; I25.10 Atherosclerotic heart disease of native coronary artery without angina pectoris; Z95.5 Presence of coronary angioplasty implant and graft; I10 Essential (primary) hypertension; I25.2 Old myocardial infarction; K21.9 Gastro-esophageal reflux disease without esophagitis; E11.9 Type 2 diabetes mellitus without complications; E78.5 Hyperlipidemia, unspecified; M06.9 Rheumatoid arthritis, unspecified; F17.210 Nicotine dependence, cigarettes, uncomplicated; Z79.82 Long term (current) use of aspirin
CPT/HCPCS: 36561; 36415; 36416; 76000; 77001; 82962; 96365; C1788; J0690; J1644; J2250; J2704; J3010; J3490; J7030

== ENCOUNTER 2020-10-03 05:47 | Outpatient (CLI) | payer MEDICARE, SELFPAY ==
[2020-10-03 10:36] LABS: Basophils % 0.2 %; Eosinophils % 0.9 %; Hematocrit 33.2 % (42.0-52.0); Hemoglobin 9.8 g/dL (11.7-16.6); Lymphocytes # 2.2 10^3/uL (0.8-4.8); Lymphocytes % 51.5 %; Mean Corpuscular HGB Conc 29.5 g/dL (30.0-36.0); Mean Corpuscular Hemoglobin 25.7 pg (28.0-34.0); Mean Corpuscular Volume 86.9 fL (80-94); Mean Platelet Volume 8.8 fL (7.4-10.4); Monocytes # 1.3 10^3/uL (0.2-0.9); Monocytes % 29.2 %; Neutrophils % 17.5 %; Nucleated Red Blood Cells % 0 %; Platelet Count 259 10^3/cmm (130-400); Red Blood Count 3.82 10^6/uL (4.1-5.3); Red Cell Distribution Width 18.8 % (12.1-15.1); White Blood Count 4.4 10^3/uL (4.0-10.0)
[2020-10-03 10:48] LABS: Alanine Aminotransferase 10 U/L (0-41); Albumin Level 3.7 g/dL (3.5-5.2); Alkaline Phosphatase 70 IU/L (40-130); Aspartate Amino Transferase 18 U/L (0-40); Blood Urea Nitrogen 11 mg/dL (6-20); Calcium 8.3 mg/dL (8.5-10.5); Carbon Dioxide 25 mmol/L (22-29); Chloride 102 mmol/L (98-107); Glomerular Filtration Rate 99.6 mL/min (90-130); Glucose 119 mg/dL (65-115); Neutrophils # 0.76 10^3/uL (1.8-7.7); Osmolality Calculated 281 mOsm/kg (285-295); Sodium 135 mmol/L (136-145); Total Bilirubin 0.2 mg/dL (0.15-1.2); Total Protein 6.7 g/dL (6.6-8.7)
== END 2020-10-03 05:48 | disposition home or self-care (01) ==
LOC: ONCMED 05:50
PROVIDERS: PCP Family Medicine; Visit Provider Internal Medicine Hematology & Oncology
DX: D47.3 Essential (hemorrhagic) thrombocythemia (principal)
CPT/HCPCS: 36591; 80053; 85025

== ENCOUNTER 2020-10-09 09:38 | Outpatient (CLI) | payer MEDICARE, SELFPAY ==
[2020-10-09 11:30] LABS: Basophils % 0.6 %; Eosinophils % 0.6 %; Hemoglobin 9.5 g/dL (11.7-16.6); Lymphocytes # 0.6 10^3/uL (0.8-4.8); Lymphocytes % 16.3 %; Mean Corpuscular HGB Conc 29.7 g/dL (30.0-36.0); Mean Corpuscular Hemoglobin 25.9 pg (28.0-34.0); Mean Corpuscular Volume 87.2 fL (80-94); Mean Platelet Volume 9.3 fL (7.4-10.4); Monocytes # 0.5 10^3/uL (0.2-0.9); Monocytes % 13.4 %; Neutrophils # 2.32 10^3/uL (1.8-7.7); Neutrophils % 68.8 %; Nucleated Red Blood Cells % 0 %; Platelet Count 356 10^3/cmm (130-400); Red Blood Count 3.67 10^6/uL (4.1-5.3); Red Cell Distribution Width 18.8 % (12.1-15.1); White Blood Count 3.4 10^3/uL (4.0-10.0)
[2020-10-09 11:50] LABS: Alanine Aminotransferase 8 U/L (0-41); Albumin Level 3.5 g/dL (3.5-5.2); Alkaline Phosphatase 75 IU/L (40-130); Anion Gap 11.5 (5-19); Aspartate Amino Transferase 16 U/L (0-40); Blood Urea Nitrogen 21 mg/dL (6-20); Calcium 8.7 mg/dL (8.5-10.5); Carbon Dioxide 27 mmol/L (22-29); Chloride 104 mmol/L (98-107); Ferritin 98 ng/mL (30-400); Globulin 2.8 g/dL (1.3-4.6); Glomerular Filtration Rate 99.6 mL/min (90-130); Glucose 116 mg/dL (65-115); Iron 16 ug/dL (59-158); Lactate Dehydrogenase 224 U/L (135-225); Osmolality Calculated 290 mOsm/kg (285-295); Percent Saturation 7.5 % (20-50); Potassium 4.5 mmol/L (3.5-5.1); Sodium 138 mmol/L (136-145); Total Bilirubin 0.2 mg/dL (0.15-1.2); Total Iron Binding Capacity 213 mcg/dl; Total Protein 6.3 g/dL (6.6-8.7); Unsaturated Iron Binding 197 ug/dL (112-347)
[2020-10-09 12:48] LABS: Add RBC Morph Yes; RBC Morph Comp No; Reticulocyte % 0.9 % (0.5-2.0); Slide Review Slide Review Perform
[2020-10-09 12:49] LABS: Ovalocytes Trace; Schistocytes Trace
== END 2020-10-09 09:39 | disposition home or self-care (01) ==
LOC: ONCMED 09:46
PROVIDERS: Internal Medicine; PCP Family Medicine; Visit Provider Internal Medicine Hematology & Oncology
DX: D47.3 Essential (hemorrhagic) thrombocythemia (principal); D50.9 Iron deficiency anemia, unspecified
CPT/HCPCS: 80053; 82728; 83540; 83550; 83615; 85025; 85045

== ENCOUNTER 2020-10-14 21:09 | Emergency (ER) | payer MEDICARE, SELFPAY ==
[2020-10-14 21:12] VITALS: BP 94/61; PULSE 67; RESP 16; TEMP 36.7; O2SAT 97; BMI 31.7
--- NOTE | 2020-10-14 21:38 | ED_ITS ---
HPI - Back Pain/Injury General: Chief Complaint: Back Pain/Injury Stated Complaint: SHARP PAIN SHOOTING FROM BACK TO TOP OF HEAD Time Seen by Provider: 10/14/20 21:20 History of Present Illness: HPI Narrative: Patient is a 55-year-old male comes to the ED with neck and back pain. Patient has a past medical history of esophageal radial adenocarcinoma, degenerative disc disease of the lumbar spine, hypertension, lipidemia, COPD and type 2 diabetes. Patient says that approximately 2 hours before arriving to the ED he turned his head a certain way and felt the pain in his mid back that shot up into his neck. He says if he keeps his head still he does not feel much pain but if he turns his head in the left or the right he feels that sharp pain. He rates the pain currently an 10 out of 10. He denies any recent injury, accident or trauma to cause pain. Patient says he uses marijuana at home to help with pain. He also takes naproxen to help with pain as well. Patient has an MRI scheduled to evaluate his cancer on October 21. He denies any neurological symptoms, numbness weakness to extremities, vision changes or headache. Associated symptoms: Deny abdominal pain, chills, dysuria, fatigue, fever(s), hematuria, nausea or vomiting Review of Systems Const: Denies: fever(s), chills or fatigue Eyes: Denies: change in vision or eye discomfort ENMT: Denies: throat pain, odynophagia, nasal discharge or nasal congestion Card: Denies: chest pain, palpitations, edema, swelling of feet/ankles, dyspnea on exertion or orthopnea Resp: Denies: dyspnea, productive cough or non-productive cough GI: Denies: abdominal pain, nausea, vomiting, diarrhea, constipation or hematochezia : Denies: flank pain, difficulty urinating, dysuria or hematuria Musc: Reports: neck pain and back pain; Denies: extremity swelling Skin/Breast: Denies: rash or new lesions Neuro: Denies: headache(s), numbness in extremities or weakness in extremities PFS ED PFSH: Medical History Anemia Atypical lymphocytosis Chronic kidney disease COPD (chronic obstructive pulmonary disease) Coronary artery disease Diabetes mellitus Dilutional hyponatremia (~07/2019) Dyslipidemia Esophageal adenocarcinoma Gastro-esophageal reflux disease without esophagitis Generalized anxiety disorder History of heart attack Hypertension Lumbago Rheumatoid arthritis Surgical History H/O heart artery stent History of colonoscopy History of endoscopy (08/14/20) Esophageal mass Port-A-Cath in place (09/29/20) Family History Family/Other Cancer Family members in general Diabetes Family members in general Hypothyroid Family members in general Social History Smoking and tobacco status: current some day smoker cigarettes Packs smoked per day: 1 Years cigarettes smoked: 30 Quit status (tobacco): quit date established Second hand smoke exposure: No Smoking risk assessment/counseling performed?: No Alcohol intake: never Desire information about alcohol rehabilitation?: No Counseling given: No Desire information about substance/drug rehabilitation?: No Counseling given: No Caregiver/support person: No Lives independently: Yes Household members: significant other Marital status: Single History of recent travel: No Current gender identity: Male Physical Exam Const: COMMON NORMALS: patient oriented x3 and alert GENERAL APPEARANCE: cooperative; not comfortable (Patient appears uncomfortable due to pain.) HENMT: COMMON NORMALS: normocephalic HEAD & SCALP: normocephalic MOUTH: Normal oral and palatal mucosa present THROAT: posterior oropharynx normal and uvula midline Neck/C-Spine: COMMON NORMALS: supple GENERAL: Yes normal visual inspection Resp: COMMON NORMALS: normal respiratory effort, No retractions, No use of accessory muscles and clear to auscultation bilaterally AUSCULTATION: clear to auscultation bilaterally Cardio: COMMON NORMALS: regular rate, regular rhythm, S1 normal heart sound present, S2 normal heart sound present, No gallops present (Cardio), No clicks present (Cardio), No murmurs present (Cardio) and Peripheral pulses 2+ throughout RATE: regular rate RHYTHM: regular rhythm HEART SOUNDS: S1 normal heart sound present and S2 normal heart sound present PERIPHERAL PULSES: Peripheral pulses 2+ throughout GI: COMMON NORMALS: Normal to inspection, nondistended, normoactive bowel sounds present, Soft to palpation, non-tender and no masses PALPATION: Yes Soft to palpation : COMMON NORMALS: Yes no CVA tenderness BLADDER/KIDNEY EXAM: Yes no CVA tenderness Back/Pelvis: COMMON NORMALS: no CVA tenderness THORACIC SPINE/UPPER BACK: Yes thoracic spinal tenderness and Yes paraspinal muscle tenderness Thoracic paraspinal muscle tenderness: bilateral Extremity: COMMON NORMALS: normal to inspection Neuro: COMMON NORMALS: patient oriented x3 and moves all extremities SENSORIUM/ORIENTATION: Yes alert Skin: GENERAL SKIN EXAM: dry skin Course Vital Signs: Vital signs: Vital Signs Temperature 98.1 F 10/14/20 21:12 Pulse Rate 67 10/14/20 21:12 Respiratory Rate 16 10/14/20 21:12 Blood Pressure 94/61 10/14/20 21:12 Pulse Oximetry 97 10/14/20 21:12 MDM - Back Pain/Injury MDM Narrative: Medical decision making narrative: Patient is a 55-year-old male comes to the ED with mid thoracic back and neck pain. Patient has a past medical history of esophageal adenocarcinoma, CKD, COPD, rheumatoid arthritis, diabetes and hypertension. Symptoms started a couple hours prior to arrival. He describes that he turned his head in a direction and then felt sharp pain in his mid back that shot up into his neck. Patient has pain whenever he turns his head left or right. Denies any pain radiating down to extremities or any other neurological symptoms. He has some thoracic paraspinal muscle tenderness and thoracic spinal tenderness upon palpation. Patient was diagnosed with midline thoracic back pain and he was given a dose of hydrocodone and Norflex while here in the ED. He was then discharged home with a prescription for hydrocodone and tizanidine. Patient is scheduled to get an MRI to check his cancer in on October 21. Return to ED precautions given. Patient understood and agreed with plan. Discharge Plan Discharge Patient Disposition: Home Clinical Impression: Midline thoracic back pain Qualifiers: Chronicity: acute Qualified Code(s): M54.6 - Pain in thoracic spine Condition: Stable Prescriptions: New tizanidine 4 mg capsule 4 mg PO Q6H PRN (Reason: muscle spasticity) Qty: 20 RF: 0 No Action hydroxychloroquine 200 mg tablet 400 mg PO DAILY RF: 0 (DME) lancets [OneTouch Delica Lancets] 33 gauge misc See Rx Instructions .ROUTE .MEDSUPPLY Qty: 100 RF: 5 prednisone 5 mg tablet 5 mg PO DAILY RF: 0 esomeprazole magnesium [Nexium] 40 mg capsule,delayed release(DR/EC) 40 mg PO DAILY RF: 0 sertraline [Zoloft] 50 mg tablet 50 mg PO DAILY Qty: 30 RF: 5 gabapentin 800 mg tablet 800 mg PO TID Qty: 90 RF: 2 sildenafil [Viagra] 25 mg tablet 25 mg PO DAILY PRN (Reason: sexual activity) Qty: 30 RF: 1 (DME) OneTouch Ultra Blue Test Strip Strip See Rx Instructions .ROUTE .MEDSUPPLY Qty: 50 RF: 5 ferrous sulfate 324 mg (65 mg iron) tablet,delayed release (DR/EC) 324 mg PO DAILY Qty: 30 RF: 2 glipizide 5 mg tablet extended release 24hr See Rx Instructions .ROUTE .COMPLEX Qty: 90 RF: 0 nitroglycerin 0.4 mg tablet, sublingual See Rx Instructions .ROUTE .COMPLEX Qty: 25 RF: 0 lovastatin 20 mg tablet See Rx Instructions .ROUTE .COMPLEX Qty: 30 RF: 0 bupropion HCl [Wellbutrin XL] 150 mg tablet extended release 24 hr 150 mg PO QAM Qty: 30 RF: 1 fluconazole [Diflucan] 150 mg tablet 150 mg PO DAILY 3 Days Qty: 3 RF: 0 magnesium oxide 250 mg magnesium Tablet 250 mg PO BID RF: 0 folic acid 0.8 mg Capsule 0.4 mg PO DAILY RF: 0 aspirin 81 mg Tablet,Delayed Release (Dr/Ec) 81 mg PO DAILY Qty: 30 RF: 8 methotrexate sodium 2.5 mg tablet 12.5 mg .ROUTE .bid once a week RF: 0 tramadol 50 mg tablet 50 mg PO TID PRN (Reason: pain) Qty: 40 RF: 1 hydrocodone-acetaminophen 5-325 mg tablet 1 tab PO Q6H PRN (Reason: pain) Qty: 30 RF: 0 Discharge Orders: Discharge ED (Routine); Ordered 10/14/20 Ordered By: Madi Singh Referrals: Brooklyn Jonas MD [Primary Care Provider] - Discharge Diet: Regular Discharge Activity: Increase activity as tolerated Patient Instructions: Back Pain (ED), Opioid Safety Activity Restrictions/Additional Instructions: Follow-up with medical provider as directed in 7 to 10 days reevaluation. Take medications as prescribed. Remember the muscle relaxer tizanidine can cause drowsiness so take at night before bed. Apply cold pack or heat on back to help with symptoms as well. Return to the ER or your medical provider if condition worsens. Please read and understand discharge instructions. If any questions, please ask. Coding Level of Care Code ED Reproduction Machine Loader for Libra Fwd Exam Comprehensive
[2020-10-14] MEDS: HYDROcodone-acetaminophen 10-325 mg Tablet 1 TAB PO (21:43)
[2020-10-14] MEDS: orphenadrine 30 mg/mL Inj 2 mL 60 MG IM (21:43)
== END 2020-10-14 22:10 | disposition home or self-care (01) ==
PROVIDERS: Emergency Provider Physician Assistant; PCP Family Medicine
DX: M54.6 Pain in thoracic spine (principal); Z79.82 Long term (current) use of aspirin; Z79.84 Long term (current) use of oral hypoglycemic drugs; J44.9 Chronic obstructive pulmonary disease, unspecified; I25.10 Atherosclerotic heart disease of native coronary artery without angina pectoris; E11.9 Type 2 diabetes mellitus without complications; Z85.01 Personal history of malignant neoplasm of esophagus; I10 Essential (primary) hypertension; F17.210 Nicotine dependence, cigarettes, uncomplicated
CPT/HCPCS: 96372; 99283; J2360

== ENCOUNTER 2020-10-21 08:01 | Outpatient (CLI) | payer MEDICARE, SELFPAY ==
[2020-10-21 08:40] LABS: Basophils % 0.6 %; Eosinophils % 0.4 %; Hemoglobin 9.6 g/dL (11.7-16.6); Lymphocytes # 1.9 10^3/uL (0.8-4.8); Lymphocytes % 35.9 %; Mean Corpuscular HGB Conc 29.1 g/dL (30.0-36.0); Mean Corpuscular Hemoglobin 24.6 pg (28.0-34.0); Mean Corpuscular Volume 84.6 fL (80-94); Mean Platelet Volume 8.6 fL (7.4-10.4); Monocytes # 0.9 10^3/uL (0.2-0.9); Monocytes % 15.7 %; Neutrophils # 2.55 10^3/uL (1.8-7.7); Neutrophils % 47.2 %; Nucleated Red Blood Cells % 0 %; Platelet Count 327 10^3/cmm (130-400); Red Cell Distribution Width 18.5 % (12.1-15.1); White Blood Count 5.4 10^3/uL (4.0-10.0)
[2020-10-21 08:55] LABS: Alanine Aminotransferase 14 U/L (0-41); Albumin Level 3.8 g/dL (3.5-5.2); Alkaline Phosphatase 87 IU/L (40-130); Anion Gap 12.2 (5-19); Aspartate Amino Transferase 15 U/L (0-40); Blood Urea Nitrogen 12 mg/dL (6-20); Calcium 8.9 mg/dL (8.5-10.5); Carbon Dioxide 27 mmol/L (22-29); Chloride 103 mmol/L (98-107); Glomerular Filtration Rate 116.2 mL/min (90-130); Glucose 127 mg/dL (65-115); Osmolality Calculated 287 mOsm/kg (285-295); Potassium 4.2 mmol/L (3.5-5.1); Sodium 138 mmol/L (136-145); Total Bilirubin 0.2 mg/dL (0.15-1.2); Total Protein 6.8 g/dL (6.6-8.7)
--- NOTE | 2020-10-21 09:27 | MR_ITS ---
WS: [id number] MRI CERVICAL SPINE NONCONTRAST AND CONTRAST TECHNIQUE: Sagittal T1, T2 and STIR imaging. Axial T2, gradient, and fiesta imaging. Post gadolinium imaging was obtained CLINICAL INFORMATION: HX OF CANCER;WEAKNESS;ESOPHAGEAL ADENOCARCINOMA COMPARISON: CT cervical May 2012 FINDINGS: Straightening of the normal cervical lordosis. Cord signal is normal. No high-grade central canal tha rowing. Replacement of the normal bone marrow signal involving the C5 vertebral body with T2 hyperint ensity and enhancement consistent with metastatic disease. Minimal compression C5 superior endplate. No retropulsion. Paravertebral soft tissue edema about the C5 vertebral body with soft tissue enhance ment. Associated epidural enhancement extends into the ventral epidural space and neural foramen. Mil d central canal stenosis. C2-C3: Normal. C3-C4: Mild disc osteophyte complex with endplate ridging. Moderate bilateral bony foraminal narrowin g right greater than left. Mild central canal stenosis. Mild facet arthropathy. C4-C5: Mild disc bulging with endplate ridging. Mild central canal stenosis. Mild bilateral bony fora keith narrowing with mild facet arthropathy. C5-C6: Mild disc osteophyte complex with endplate ridging. Mild central canal stenosis. Moderate face t arthropathy. Moderate bilateral bony foraminal narrowing. C6-C7: Disc osteophyte complex with endplate ridging. Shallow central disc bulging with mild central canal stenosis. Mild left greater than right bony foraminal narrowing. Mild facet arthropathy. C7-T1: Mild disc osteophytic ridging. Mild left and no significant right foraminal narrowing. Visualized brain stem structures: Normal. Prevertebral soft tissues: Normal. MR/MR cervical spine wo/w [id number] IMPRESSION: 1. Straightening of the normal cervical lordosis. Cord signal is normal. 2. Enhancing metastatic lesion C5 vertebral body with surrounding paravertebra l soft tissue enhancement. Thin ventral epidural enhancement with mild central canal stenosis. 3. Minimal compression of the C5 superior endplate. No retropulsion. 4. Moderate central canal stenosis C3-C4 C4-C5 C5-C6 and C6-C7. 5. Moderate multilevel bony foraminal narrowing worse at right C3-4, right C4- 5, bilateral C5-C6 and left C6-7. 6. Moderate facet arthropathy C5-6.
[2020-10-21] MEDS: gadobenate dimeglumine 20 mL vial IV (10:59)
== END 2020-10-21 08:02 | disposition home or self-care (01) ==
LOC: ONCMED 08:03
PROVIDERS: PCP Family Medicine; Visit Provider Internal Medicine Hematology & Oncology
DX: C15.5 Malignant neoplasm of lower third of esophagus (principal); R53.1 Weakness; M50.00 Cervical disc disorder with myelopathy, unspecified cervical region; M48.02 Spinal stenosis, cervical region
CPT/HCPCS: 36591; 72156; 80053; 85025; A9577

== ENCOUNTER 2020-10-24 06:03 | Outpatient (CLI) | payer MEDICARE, SELFPAY ==
--- NOTE | 2020-10-26 19:58 | ONC FU_ITS ---
Dr. Ramachandran follow up note Patient: Maximino Sandoval Unit #: [id number]: 1965 Dicatated By: Asaf Ramachandran M.D.Date of Visit:Oct 24, 2020 Onc Med Follow-up/Prog Note History of Present Illness: Mr. Maximino Sandoval, is a 55-year-old gentleman with history of T- LGL, on methotrexate/prednisone started on April 27, 2019, ultrasound abdomen done on August 01, 2020 showed spleen size normal. And history of rheumatoid arthritis diagnosed in 2003 now on prednisone, HCQ, methotrexate, Patient underwent EGD on August 14, 2020 for macrocytic anemia and progressive dysphagia, which showed at 35 cm from incisors esophageal thickening have circumferential, friable, easily bleeding lesion biopsy was done which showed moderately poorly differentiated invasive adenocarcinoma, CT scan of chest abdomen pelvis done on 11/11/2020 showed diffuse circumferential distal esophageal/GE junction thickening, few enlarged paraesophageal lymph nodes largest is 1.1 cm, slightly enlarged celiac and quinton hepatic lymph nodes and subcentimeter lung nodules left upper lobe and left lower lobe less than 5 mm. On September 11, [address] PET scan at [facility] which showed metastatic disease above and below diaphragm including multiple abdominal lymph nodes, hepatic lesions, largest is 3.3 x 3.1 cm with hepatic segment 7 SUV 11.1 osseous metastatic disease, lytic lesion centered in C5 vertebral body and left L2 pedicle and in the right fourth rib anterior MRI scan of the C-spine done on October 21, 2020 showed enhancing metastatic lesion C5 vertebral body with surrounding paravertebral soft tissue enhancement. 10 ventral epidural enhancement with mild central canal stenosis and moderate multilevel bony foraminal narrowing worse at C3-7 his labs checked on 09/19/2017 showed white blood count 8.5 hemoglobin 10.2 crit 31.2 MCV 82.8 platelet counts 568,000 and B12 was 462 iron was 11 normal being 65-175 reticulocyte count was 1.1 ferritin was 382.4 normal being 26 to 388, folate was 9.20 reticulocyte count was 1.1 His hemoglobin improved to 11.5 g on 10/26/2017 with discontinue of methotrexate and thrombocytosis also resolved and at that time patient was advised to follow with his PMD and to come to clinic on as-needed basis. During recent follow-up with his vest maker while patient was on xeljanz (tofactinib ) for his arthritis ,his follow-up CBC done on 08/10/2018 showed white blood count 3.87 normal being 3.8-10.7, neutrophil 35.5% lymphocytes 52.4% monocytes 10.9% ANC 1.37 with hemoglobin 13 g platelets 301,000. Patient was sent to hematology clinic for evaluation for neutropenia. As per patient xeljanz was discontinued month ago e.g. prior to this lab workup. Guardant 360 showed tumor mutational burden 14.35 e.g. more than 10, pembrolizumab is indicated, and other abnormality including CESARIO W266, CESARIO [id number], CESARIO splice site indel, FDA approved therapy include olaparib, niraparib, rucaparib, talazoparib can be considered. Came for follow-up, complaining of left anterior chest wall pain, as per patient about a week ago he heard a pop sound after a sneeze and thought of rib fracture, as patient has history of injury to left anterior chest wall about a year ago when he fell and hit the corner of the table. Now with progressive pain not being controlled with narcotics, as per patient has high tolerance for narcotics. Also complaining of progressive dysphagia but can swallow certain food and medications without significant problem Denies any neck pain denies any shoulder pain denies any numbness or pain radiating to either upper extremity. Patient denies any specific complaints, no fever or chills, no nausea or vomiting, no sore throat, patient is on steroids for arthritis Skin biopsy from left subaxillary area done on 02/05/2019 showed chronic inflammation now being treated with topical agent per Dr. Haley countersinker in [facility]. 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 A reactive process cannot be entirely excluded No night sweats, no fever or chills, no weight loss, no peripheral lymphadenopathy. Medications: Cymbalta 1 Capsule (of 20 mg) Capsule Delayed Release Particles Oral b.i.d., Ferrous Gluconate 1 (324 (37.5 fe) mg) Tablet Oral b.i.d., Fish Oil 1 (1200 mg) Capsule Oral daily, Folic Acid 1 (400 mcg) Tablet Oral daily, Irbesartan 1 (75 mg) Tablet Oral daily, Lovastatin 1 (20 mg) Tablet Oral daily, Pantoprazole Sodium 1 (40 mg) Tablet, enteric coated Oral daily, PARoxetine HCl 1 (20 mg) Tablet Oral b.i.d., PredniSONE 1 Tablet (of 20 mg) Oral b.i.d. Allergies: Lisinopril Review of Systems: Review of Systems is not available for this patient. Vital Signs: Performed on Oct 24, 2020 08:55 Height - 72.00 in Weight - 212.4 lbs (LOW) BSA - 2.19 sq.m BMI - 28.81 Temperature - 99.0 F (HIGH) Pulse - 61 /min Respiration - 17 /min BP - 85/50 mm(hg) (LOW) O2 Sat - 97 % Pain - 8 Performance Status: 2 - Ambulatory/capable of all self-care, unable to perform any work activities. Up and about more than 50% of waking hours. (ECOG) Physical Examination: ENMT - No mouth sores, no thrush, no jaundice, Respiratory - Lungs are clear to auscultation, Mild to moderate tenderness in the left anterior chest wall but no overlying skin changes or fullness, Cardiovascular - Regular rate and rhythm of heart, Abdomen - Soft, bowel sounds present, Extremities - No visible edema. Lab/Imaging: Most recent lab results are not available for this patient. 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 CT PET scan done on September 11, 2020 at [place] shows mild thickening of the distal thoracic esophagus extending into gastric cardia with FDG uptake 21.2, Multiple hypermetabolic hepatic lesions largest is 3.3 x 3.1 cm in hepatic segment 7 SUV 11.1 Hypermetabolic lymphadenopathy within the gastrohepatic and retroperitoneal station, and para-aortic. There are hypermetabolic lytic lesion centered in C5 vertebral body, and left L2 pedicle, and anterior right fourth rib. 2 . 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 A reactive process cannot be entirely excluded. 3. Rheumatoid arthritis diagnosed in 2003 on prednisone, HCQ, methotrexate Bilateral subaxillary skin lesion questionable etiology, was referred to Dr. haley, countersinker in [facility], patient underwent skin biopsy from left subaxillary area, as per patient it shows chronic inflammation and now being treated with topical agent Plan: Cussed with patient regarding his labs white blood count 5.4 hemoglobin 9.6 hematocrit 33 platelets 327,000 CMP within normal limits and MRI scan of C-spine which shows C5 involvement with metastatic disease and guardant 360 degree findings which showed HER-2/stephanie negative, MSI/MMR intact but alteration in CESARIO gene thus his disease may be responsive to PARP inhibitors Clinically, patient is in moderate to severe distress due to left anterior chest wall pain since last week, concern is whether he has underlying pneumothorax due to left anterior rib fracture due to earlier injury and now aggravated by sneeze, will send him to [facility] [place] evaluation and also prescribe him pain medication Percocet 10/325 he will take 1 to 2 tablet 6 to 8-hour as needed As part of dysphagia is concerned, will refer him to Dr. Banks for evaluation for G-tube placement As MRI scan of the C spine showed C5 involvement although he is not symptomatic, we will start him on dexamethasone and refer him to radiation therapy DEEPAK In the meantime, we will consider palliative chemo immunotherapy with weekly carboplatin/Taxol and as tumor mutational burden is more than 10, will add Keytruda. All the side effect possible benefits associated with chemoimmunotherapy including but not limited to bone marrow suppression, nausea vomiting, hair loss, peripheral neuropathy especially with Taxol, endocrinopathy, enteritis, pneumonitis, jaundice, skin rash especially with immunotherapy were mentioned, further teaching done by chemotherapy nurse, will obtain approval from his insurance prior to the treatment We will start his systemic chemo immunotherapy treatment after radiation therapy to the spine is completed. Patient will return to clinic 1 week after completion of C-spine radiation therapy Signed By: Asaf Ramachandran M.D. <<Signature on File>>
== END 2020-10-24 06:04 | disposition home or self-care (01) ==
LOC: ONCMED 06:03
PROVIDERS: PCP Family Medicine; Visit Provider Internal Medicine Hematology & Oncology
DX: C15.5 Malignant neoplasm of lower third of esophagus (principal); M06.9 Rheumatoid arthritis, unspecified; Z79.52 Long term (current) use of systemic steroids; Z79.899 Other long term (current) drug therapy
CPT/HCPCS: 99215

== ENCOUNTER 2020-10-24 10:24 | Emergency (ER) | payer MEDICARE, SELFPAY ==
--- NOTE | 2020-10-24 10:47 | XR_ITS ---
WS: [id number] Chest with left rib detail, 10/24/2020 Clinical Data: left rib pain Comparison: Portable chest, 07/03/2019. Findings: The lungs show no nodules, masses, or effusions. The heart is enlarged.. No pneumonia or pneumothorax is seen. There is a Port-A-Cath which ends in the superior vena cava. There is an old left posterior lateral 10th rib fracture. No new fractures are seen. No pneumothorax is present. No subcutaneous emphysema is seen. XR/XR ribs LT mn 3V w [id number] Impression: 1. Cardiomegaly. 2. Old left posterior lateral 10th rib fracture.
[2020-10-24 10:53] VITALS: BP 95/59; PULSE 61; RESP 18; TEMP 36.5; O2SAT 97; BMI 31.3
--- NOTE | 2020-10-24 10:59 | W.ED.CHESTPA ---
HPI - Chest Pain General: Chief Complaint: General Medical Stated Complaint: LEFT RIB PAIN Time Seen by Provider: 10/24/20 10:54 History of Present Illness: HPI narrative: 55-year-old male with a known history of esophageal CA with mets. He was seen by Dr. Ramachandran this morning referred here because you have a rib pain he thinks he may have broken a rib when he sneezed yesterday. He has a history of rib fractures. Dr. Ramachandran and called he had prescribed medication for pain control wanted him to have x-rays done in the emergency room. MD complaint: chest pain Onset (ago): day(s) Timing of current episode: constant Pain location: left chest and lateral Pain radiation: none Severity: moderate Quality: sharp Relieving factors: rest and remaining still Exacerbating factors: inspiration, palpation and movement Associated symptoms: Deny abdominal pain, diaphoresis, dyspnea, fever(s), leg edema, nausea, palpitations, sense of impending doom, syncope or vomiting Treatment prior to arrival: none Review of Systems Const: Denies: fever(s) or diaphoresis ENMT: Denies: throat pain, ear or mastoid pain, nasal discharge or nasal congestion Card: Denies: palpitations or syncope Resp: Denies: dyspnea GI: Denies: abdominal pain, nausea or vomiting : Denies: flank pain, dysuria, urinary frequency or urinary urgency Skin/Breast: Denies: rash or pruritus PFSH ED PFSH: Medical History Anemia Atypical lymphocytosis Chronic kidney disease COPD (chronic obstructive pulmonary disease) Coronary artery disease Diabetes mellitus Dilutional hyponatremia (~07/2019) Dyslipidemia Esophageal adenocarcinoma Gastro-esophageal reflux disease without esophagitis Generalized anxiety disorder History of heart attack Hypertension Lumbago Rheumatoid arthritis Surgical History H/O heart artery stent History of colonoscopy History of endoscopy (08/14/20) Esophageal mass Port-A-Cath in place (09/29/20) Family History Family/Other Cancer Family members in general Diabetes Family members in general Hypothyroid Family members in general Social History (Reviewed 10/27/20 @ 07:30 by TAMI Florez Smoking and tobacco status: current some day smoker cigarettes Packs smoked per day: 1 Years cigarettes smoked: 30 Quit status (tobacco): quit date established Second hand smoke exposure: No Smoking risk assessment/counseling performed?: No Alcohol intake: never Desire information about alcohol rehabilitation?: No Counseling given: No Desire information about substance/drug rehabilitation?: No Counseling given: No Caregiver/support person: No Lives independently: Yes Household members: significant other Marital status: Single History of recent travel: No Current gender identity: Male Physical Exam Const: COMMON NORMALS: no acute distress GENERAL APPEARANCE: cooperative and comfortable ORIENTATION/CONSCIOUSNESS: Yes awake, Yes oriented to person, Yes oriented to place and Yes oriented to time HENMT: COMMON NORMALS: normocephalic, atraumatic, hearing grossly normal bilaterally and external ears normal HEAD & SCALP: normocephalic and atraumatic EXTERNAL EAR: Yes external ears normal Neck/C-Spine: COMMON NORMALS: no JVD Lymph: LYMPHATIC: no lymphadenopathy noted and no lymphedema noted Chest: OTHER: Producible chest pain with deep inspiration and palpation along the left lower ribs anterior axillary line on the left. No fractures no deformities Resp: COMMON NORMALS: normal respiratory effort, No retractions, No use of accessory muscles and clear to auscultation bilaterally AUSCULTATION: clear to auscultation bilaterally Cardio: COMMON NORMALS: no JVD, regular rate, regular rhythm and No murmurs present (Cardio) RATE: regular rate RHYTHM: regular rhythm GI: COMMON NORMALS: Soft to palpation and No hepatosplenomegaly present AUSCULTATION: Yes normoactive bowel sounds PALPATION: Yes Soft to palpation, No Tenderness to palpation present (GI), No Guarding due to palpation present (GI) and Yes No hepatosplenomegaly present Extremity: COMMON NORMALS: normal to inspection, capillary refill normal, no clubbing, cyanosis or edema, no calf tenderness and no pedal edema Neuro: SENSORIUM/ORIENTATION: Yes oriented to person, Yes oriented to place and Yes oriented to time Skin: COMMON NORMALS: no rashes or lesions noted GENERAL SKIN EXAM: no rashes or lesions noted Course Vital Signs: Vital signs: Vital Signs Temperature 97.7 F 10/24/20 10:53 Pulse Rate 65 10/24/20 12:21 Respiratory Rate 18 10/24/20 12:21 Blood Pressure 98/66 10/24/20 12:21 Pulse Oximetry 98 10/24/20 12:21 MDM - Chest Pain MDM Narrative: Medical decision making narrative: No fractures contusion of the ribs we will have him use pain medications as needed rest ice follow-up with Dr. Ramachandran. Lab Data: Labs: Lab Results 10/24/20 Range/Units 11:45 Urine Color Dark yellow (Yellow) Urine Appearance Sl hazy (CLEAR) Urine pH 5 (5-7) Ur Specific Gravit y 1.025 (1.005-1.030) Urine Protein Neg (Negative) Urine Glucose (UA) Norm (Normal) Urine Ketones Negative (Negative) Urine Blood Neg (Negative) Urine Nitrate Negative (Negative) Urine Bilirubin 1+ H (Negative) Urine Urobilinogen 1 H (Negative) mg/dL Ur Leukocyte Cydney ase Negative (Negative) Urine RBC None (0-2) /hpf Urine WBC 0-4 H (0-5) /hpf Ur Squamous Epith Cells 0-4 H (0-5) /hpf Amorphous Sediment Not Reportable Urine Bacteria 1+ H (NONE) /hpf Hyaline Casts 0-4 H /lpf Urine Mucus 2+ /hpf Discharge Plan Discharge Patient Disposition: Home Clinical Impression: Rib pain on left side Condition: Stable Prescriptions: No Action hydroxychloroquine 200 mg tablet 400 mg PO DAILY RF: 0 (DME) lancets [OneTouch Delica Lancets] 33 gauge misc See Rx Instructions .ROUTE .MEDSUPPLY Qty: 100 RF: 5 prednisone 5 mg tablet 5 mg PO DAILY RF: 0 esomeprazole magnesium [Nexium] 40 mg capsule,delayed release(DR/EC) 40 mg PO DAILY RF: 0 sertraline [Zoloft] 50 mg tablet 50 mg PO DAILY Qty: 30 RF: 5 gabapentin 800 mg tablet 800 mg PO TID Qty: 90 RF: 2 sildenafil [Viagra] 25 mg tablet 25 mg PO DAILY PRN (Reason: sexual activity) Qty: 30 RF: 1 (DME) OneTouch Ultra Blue Test Strip Strip See Rx Instructions .ROUTE .MEDSUPPLY Qty: 50 RF: 5 ferrous sulfate 324 mg (65 mg iron) tablet,delayed release (DR/EC) 324 mg PO DAILY Qty: 30 RF: 2 glipizide 5 mg tablet extended release 24hr See Rx Instructions .ROUTE .COMPLEX Qty: 90 RF: 0 nitroglycerin 0.4 mg tablet, sublingual See Rx Instructions .ROUTE .COMPLEX Qty: 25 RF: 0 lovastatin 20 mg tablet See Rx Instructions .ROUTE .COMPLEX Qty: 30 RF: 0 bupropion HCl [Wellbutrin XL] 150 mg tablet extended release 24 hr 150 mg PO QAM Qty: 30 RF: 1 fluconazole [Diflucan] 150 mg tablet 150 mg PO DAILY 3 Days Qty: 3 RF: 0 magnesium oxide 250 mg magnesium Tablet 250 mg PO BID RF: 0 folic acid 0.8 mg Capsule 0.4 mg PO DAILY RF: 0 aspirin 81 mg Tablet,Delayed Release (Dr/Ec) 81 mg PO DAILY Qty: 30 RF: 8 methotrexate sodium 2.5 mg tablet 12.5 mg .ROUTE .bid once a week RF: 0 tizanidine 4 mg capsule 4 mg PO Q6H PRN (Reason: muscle spasticity) Qty: 20 RF: 0 tramadol 50 mg tablet 50 mg PO TID PRN (Reason: pain) Qty: 40 RF: 1 hydrocodone-acetaminophen 5-325 mg tablet 1 tab PO Q6H PRN (Reason: pain) Qty: 30 RF: 0 Discharge Orders: Discharge ED (Routine); Ordered 10/24/20 Ordered By: Marcial Pierre Referrals: Brooklyn Jonas MD [Primary Care Provider] - Patient Instructions: Opioid Safety Coding Level of Care Code 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
[2020-10-24 12:09] VITALS: RESP 18
[2020-10-24] MEDS: morphine 4 mg/mL SDV 1 mL 6 MG IVP (12:09)
[2020-10-24 12:21] VITALS: BP 98/66; PULSE 65; RESP 18; O2SAT 98
[2020-10-24 12:27] LABS: Add Urine Microscopic? YES; Bilirubin Urine 1+ (Negative); Blood Urine Neg (Negative); Glucose Urine UA Norm (Normal); Ketones Urine Negative (Negative); Leukocyte Esterase Urine Negative (Negative); Nitrate Urine Negative (Negative); Protein Urine Neg (Negative); Specific Gravity, Urine 1.025 (1.005-1.030); Urine Appearance SL Hazy (CLEAR); Urine Color Dark Yellow (Yellow); Urobilinogen Urine 1 mg/dL (Negative); pH Urine 5 (5-7)
[2020-10-24 12:30] LABS: Add Urine Culture? No; Bacteria Urine 1+ /hpf; Mucus Urine 2+ /hpf; Squamous Epithelial Cell Urine 0-4 /hpf (0-5); WBC Urine 0-4 /hpf (0-5)
[2020-10-24 12:31] LABS: Hyaline Casts Urine 0-4 /lpf
== END 2020-10-24 12:22 | disposition home or self-care (01) ==
PROVIDERS: Emergency Provider Family Medicine; PCP Family Medicine
DX: R07.81 Pleurodynia (principal); Z79.84 Long term (current) use of oral hypoglycemic drugs; Z79.82 Long term (current) use of aspirin
CPT/HCPCS: 71101; 81001; 96374; 99283; J2270

== ENCOUNTER 2020-10-30 05:55 | Outpatient (RCR) | payer MEDICARE, SELFPAY ==
--- NOTE | 2020-10-28 09:20 | N.ONRAD NP_ITS ---
Radiation Oncology Consultation Patient Name: Maximino Sandoval Date of : 1965 Date of Service: 10/28/2020 Attending Physician: Arnold Connell M.D. Maximino Sandoval was seen in consultation this morning at the request of Yumiko Ramachandran M.D. for consideration of palliative radiotherapy for the management of a recently diagnosed esophageal cancer. He was evaluated in June by his primary care physician for a complaint of dysphagia to solid food regurgitation, and dyspepsia. An EGD performed by Wayne Bakns M.D. performed on August 14, 2020 identified a partially circumferential esophageal mass (35 cm from the central incisors). The pathology report (independently reviewed in [facility]) diagnosed a moderate to poorly differentiated invasive adenocarcinoma with normal expression of DNA mismatch repair proteins. A thoracoabdominopelvic CT scan ordered on August 14, 2020 demonstrated circumferential thickening of the distal esophagus and associated luminal narrowing with mildly enlarged paraesophageal, celiac and quinton hepatis lymphadenopathy. He was referred to [facility] in [place], [place]. A PET CT completed on September 11, 2020 revealed the primary esophageal lesion, gastrohepatic and retroperitoneal lymphadenopathy, multiple metabolic hepatic lesions, and FDG lytic lesions in the fifth cervical vertebral body, left second lumbar pedicle, and anterior right fourth rib. An MR of the cervical spine completed on October 21, 2020 (personally visualized in [facility]) confirmed replacement of the normal bone marrow signal within C5 vertebral body with T2 hyperintensity and enhancement consistent with metastatic disease with epidural enhancement extending into the ventral epidural space and neural foramen. The patient is being evaluated for palliative radiotherapy to the C5 vertebral body. A Guardant 360 was requested. I discussed with Mr. Sandoval the role for palliative radiotherapy. I would recommend a 2-week course of radiation therapy. A CT scan will be acquired for radiotherapy planning prior to beginning treatment to delineate the gross tumor volume. The potential toxicities of cervical (neck) radiotherapy were reviewed. The patient has verbalized understanding would like to proceed as recommended. His medical treatment has been discussed with Yumiko Ramachandran M.D. Signed by: Dr. Arnold Connell 10/28/2020 9:18:04 AM
--- NOTE | 2020-10-30 | CT_ITS ---
Radiation Therapy Planning CT images; total exam DLP: 705.16 mGy-cm MTDD
== END 2020-10-31 23:59 | disposition home or self-care (01) ==
LOC: ONCMED 05:55
PROVIDERS: PCP Family Medicine; Visit Provider Radiology Radiation Oncology
DX: Z51.0 Encounter for antineoplastic radiation therapy (principal); C15.5 Malignant neoplasm of lower third of esophagus; C79.51 Secondary malignant neoplasm of bone; D47.3 Essential (hemorrhagic) thrombocythemia
CPT/HCPCS: 77290; 77334; 99205

== ENCOUNTER 2020-11-11 05:33 | Outpatient (RCR) | payer MEDICARE, SELFPAY ==
--- NOTE | 2020-11-04 15:01 | ONCRAD TMN_ITS ---
Radiation Oncology Treatment Management Note Patient Name: Maximino Sandoval Date of : 1965 Date of Service: 11/04/2020 Attending Physician: Arnold Connell M.D. Maximino Sandoval is a 55 year old white male recently diagnosed metastatic esophageal cancer. He presents for radiotherapy planning for palliation of a C5 spine lesion. The patient has received 6 Gy of a prescribed 30 Edmonds to C5 with a 3-dimensional conformal radiotherapy plan utilizing PA port with wedge pair treatment saleem. Upon review of systems, he denied any neurological complaints. On physical examination, the patient weighed 215 lbs. His temperature was 97.5 ???F with a blood pressure of 109/67 mmHg. His pulse was 60 bpm and his respiratory rate was 18. Continue palliative radiotherapy as prescribed. Signed by: Dr. Arnold Connell 11/04/2020 2:59:50 PM
--- NOTE | 2020-11-10 09:46 | ONCRAD TMN_ITS ---
Radiation Oncology Treatment Management Note Patient Name: Maximino Sandoval Date of : 1965 Date of Service: 11/10/2020 Attending Physician: Arnold Connell M.D. Maximino Sandoval is a 55 year old white male recently diagnosed metastatic esophageal cancer. He presents for radiotherapy planning for palliation of a C5 spine lesion. The patient has received 18 Gy of a prescribed 30 Edmonds to C5 with a 3-dimensional conformal radiotherapy plan utilizing PA port with wedge pair treatment saleem. Upon review of systems, he denied any neurological complaints. On physical examination, the patient weighed 208 lbs. His temperature was 98.3 ???F with a blood pressure of 115/81 mmHg. His pulse was 76 bpm and his respiratory rate was 18. Continue palliative radiotherapy as planned. Signed by: Dr. Arnold Connell 11/10/2020 9:45:25 AM
[2020-11-10 10:27] LABS: Basophils % 0.7 %; Eosinophils % 0.3 %; Hemoglobin 10.4 g/dL (11.7-16.6); Lymphocytes # 0.8 10^3/uL (0.8-4.8); Lymphocytes % 26.4 %; Mean Corpuscular HGB Conc 29.7 g/dL (30.0-36.0); Mean Corpuscular Hemoglobin 24.5 pg (28.0-34.0); Mean Corpuscular Volume 82.5 fL (80-94); Mean Platelet Volume 8.8 fL (7.4-10.4); Monocytes # 0.7 10^3/uL (0.2-0.9); Monocytes % 22.1 %; Neutrophils # 1.54 10^3/uL (1.8-7.7); Neutrophils % 50.2 %; Nucleated Red Blood Cells % 0 %; Platelet Count 255 10^3/cmm (130-400); Red Blood Count 4.24 10^6/uL (4.1-5.3); Red Cell Distribution Width 17.8 % (12.1-15.1); White Blood Count 3.1 10^3/uL (4.0-10.0)
[2020-11-10 10:50] LABS: Alanine Aminotransferase 30 U/L (0-41); Albumin Level 3.6 g/dL (3.5-5.2); Alkaline Phosphatase 115 IU/L (40-130); Aspartate Amino Transferase 32 U/L (0-40); Blood Urea Nitrogen 18 mg/dL (6-20); Calcium 8.2 mg/dL (8.5-10.5); Carbon Dioxide 26 mmol/L (22-29); Chloride 98 mmol/L (98-107); Globulin 3.2 g/dL (1.3-4.6); Glucose 135 mg/dL (65-115); Lactate Dehydrogenase 316 U/L (135-225); Osmolality Calculated 282 mOsm/kg (285-295); Sodium 134 mmol/L (136-145); Total Bilirubin 0.2 mg/dL (0.15-1.2); Total Protein 6.8 g/dL (6.6-8.7)
== END 2020-11-12 11:00 | disposition home or self-care (01) ==
LOC: ONCMED 05:33
PROVIDERS: Internal Medicine; PCP Family Medicine; Visit Provider Radiology Radiation Oncology
DX: Z51.0 Encounter for antineoplastic radiation therapy (principal); C15.5 Malignant neoplasm of lower third of esophagus; C79.51 Secondary malignant neoplasm of bone; D47.3 Essential (hemorrhagic) thrombocythemia; Z79.899 Other long term (current) drug therapy; C15.9 Malignant neoplasm of esophagus, unspecified; J44.9 Chronic obstructive pulmonary disease, unspecified; I25.10 Atherosclerotic heart disease of native coronary artery without angina pectoris; E11.22 Type 2 diabetes mellitus with diabetic chronic kidney disease; I12.9 Hypertensive chronic kidney disease with stage 1 through stage 4 chronic kidney disease, or unspecified chronic kidney disease; N18.9 Chronic kidney disease, unspecified; E78.5 Hyperlipidemia, unspecified; M19.90 Unspecified osteoarthritis, unspecified site; F41.9 Anxiety disorder, unspecified; E11.40 Type 2 diabetes mellitus with diabetic neuropathy, unspecified; F17.210 Nicotine dependence, cigarettes, uncomplicated; Z79.82 Long term (current) use of aspirin
CPT/HCPCS: 36415; 36416; 36591; 43246; 77295; 77300; 77334; 77387; 77412; 80053; 82962; 83615; 85025; 87635; 96365; J0690; J2704; J7030

== ENCOUNTER 2020-11-12 11:11 | Day surgery (SDC) | payer MEDICARE, SELFPAY ==
[2020-11-11 13:16] VITALS: BMI 30.1
--- NOTE | 2020-11-12 11:15 | W.PM.OPSUD ---
Surgery/Procedure H&P Update DATE OF PROCEDURE: November 12, 2020 DATE H&P PERFORMED: 11/03/20 H&P UPDATE INFORMATION: I have reviewed H&P completed within last 30 days, I have examined patient prior to procedure and No changes to prior documentation PREOP DIAGNOSIS: Metastatic esophageal cancer PLANNED PROCEDURE: Operation Date: 11/12/20 13:10 Proposed Procedures p PEG Tube Insertion 11486 k22.8(Not Applicable) - Wayne Banks MD
[2020-11-12 11:33] VITALS: BP 109/73; PULSE 67; RESP 18; TEMP 36.9; O2SAT 95
[2020-11-12 11:52] LABS: Glucose Point of Care 98 mg/dL (70-110)
[2020-11-12] MEDS: sodium chloride 0.9% 1,000 ML 30 ML IV (11:56)
--- NOTE | 2020-11-12 12:30 | ANES.PREANE2 ---
Pre-Anesthetic Assessment Pre-Anesthetic Assessment: Height/Weight: Height 1.75 m Weight 92.533 kg Temp Pulse Resp BP Pulse Ox 98.5 F 67 18 109/73 95 11/12/20 11:33 11/12/20 11:33 11/12/20 11:33 11/12/20 11:33 11/12/20 11:33 Preop Diagnosis: esophageal ca Proposed Procedure: Operation Date: 11/12/20 13:10 Proposed Procedures p PEG Tube Insertion 63651 k22.8(Not Applicable) - Wayne Banks MD Was Beta Jenna taken within 24 hours: N/A Was Clonidine taken within 24 hours: N/A Last intake: Intake Last Liquid Date 11/11/20 Last Liquid Time 19:00 Last Solid Date 11/11/20 Last Solid Time 19:00 Social: Social History: Tobacco Exam: Pre-Anes Outpt Exam: alert, oriented x 3, clear to auscultation bilaterally and regular rate & rhythm Airway: Submandibular: WNL Cervical ROM: WNL MP: 3 (full villanueva) History/ROS: No significant history except as noted Pulmonary: Pulmonary: COPD CV/HEM: CV/HEM: CAD and HTN : : None reported Hepatic: Hepatic: None reported GI: GI: None reported Metabolic: Metabolic: DM and Hyperlipidemia Musc/skel: Musc/skel: OA/DJD Neuropsych: Neuropsych: Anxiety and Neuropathy Anesthetic Plan: ASA status: 3 Anesthesia: Anesthesia Evaluation and MAC Risk of > 500 ml blood loss (7ml/kg in children): No Meds/Allergies Current Medications: Current Medications Generic Name Dose Route Start Last Admin Trade Name Freq PRN Reason Stop Dose Admin Sodium Chloride 1,000 mls @ 30 ml s/hr 11/12/20 11:30 11/12/20 11:56 Sodium Chloride 0.9% IV 30 mls/hr .Q24H DANIEL Administration PFSH Anesthesia PFSH: Medical History Anemia Atypical lymphocytosis Chronic kidney disease COPD (chronic obstructive pulmonary disease) Coronary artery disease Diabetes mellitus Dilutional hyponatremia (~07/2019) Dyslipidemia Esophageal adenocarcinoma Gastro-esophageal reflux disease without esophagitis Generalized anxiety disorder History of heart attack Hypertension Lumbago Rheumatoid arthritis Surgical History H/O heart artery stent History of colonoscopy History of endoscopy (08/14/20) Esophageal mass Port-A-Cath in place (09/29/20) Family History Family/Other Cancer Family members in general Diabetes Family members in general Hypothyroid Family members in general Social History (Updated 11/03/20 @ 14:28 by Annette Ge LPN) Smoking and tobacco status: current some day smoker cigarettes Packs smoked per day: 1 Years cigarettes smoked: 30 Quit status (tobacco): quit date established Second hand smoke exposure: No Smoking risk assessment/counseling performed?: No Alcohol intake: never Desire information about alcohol rehabilitation?: No Counseling given: No Desire information about substance/drug rehabilitation?: No Counseling given: No Caregiver/support person: No Lives independently: Yes Household members: significant other Marital status: Single History of recent travel: No Current gender identity: Male Data Anesthesia Other Labs: Laboratory Results - last 48 hr 11/12/20 11:49 POC Glucose 98 Cardiac Studies: No Data to Display
[2020-11-12 13:03] VITALS: BP 90/58; PULSE 57; RESP 20; TEMP 36.5; O2SAT 93
[2020-11-12 13:05] VITALS: BP 100/69; PULSE 57; RESP 18; O2SAT 99
[2020-11-12 13:10] VITALS: BP 100/69; PULSE 56; RESP 18; TEMP 36.5; O2SAT 94
[2020-11-12 13:15] VITALS: BP 108/70; PULSE 57; RESP 18; TEMP 36.5; O2SAT 96
--- NOTE | 2020-11-12 13:24 | PM.OP ---
Operative Report Date of procedure: November 12, 2020 Pre-op Diagnosis: Metastatic esophageal cancer Post-op Diagnosis: Metastatic esophageal cancer Procedure Done: Placement of 20 Kyrgyz percutaneous endoscopic gastrostomy tube via pull technique Pathology: none sent Surgeon: Wayne Banks Anesthesia: MAC Condition: stable Disposition: PACU Procedure: The patient was taken to the Operating Room and was placed under monitored anesthesia care after antibiotic had been administered. A bite block was placed and Olympus gastroscope was introduced and advanced up to the stomach and the first portion of the duodenum. There were no abnormalities noted in the stomach and duodenum. There was a friable esophageal mass as previously known. The site for the planned PEG was confirmed in the left upper quadrant with transillumination using gastroscope noted through the abdominal wall and indentation of the abdominal wall noted on the gastroscope. This site was marked, and total of 5 milliliters of 1% lidocaine was infiltrated. An 11-blade was used to make a stab incision. An introducer needle was passed through the abdominal wall into the gastric lumen and the needle removed and the needle removed and the sheath left behind. A guidewire was passed through the introducer needle into the gastric lumen and grasped with a snare attached to the gastroscope. The gastroscope was withdrawn along with the guidewire, which was attached to the 20-Kyrgyz EndoVive PEG tube. The guidewire was then pulled through the abdominal wall along with the PEG through the mouth into the gastric lumen until the inner disc was noted to stand against the gastric wall. The gastroscope was reintroduced to confirm good position. The outer disc was then attached and the two way valve was fixed to the PEG tube. The outer disc was noted to be at 4 centimeters at the skin level. Sterile dressing and abdominal binder was placed. The patient was stable throughout the procedure.
[2020-11-12 13:29] VITALS: BP 97/63; PULSE 54; RESP 18; O2SAT 99
--- NOTE | 2020-11-12 14:12 | ANE.PACU2 ---
Inpatient post-anesthesia follow up: Airway intact: Yes Vital signs: Temperature 97.7 F Pulse Rate 54 Respiratory Rate 18 Blood Pressure 97/63 Pulse Oximetry 99 Oxygen Delivery Me thod Room Air Oxygen Flow Rate 2 Fraction of Inspir ed Oxygen Hydration adequate: Yes Nausea and vomiting: No Pain level: 3 Mental status: Baseline
== END 2020-11-12 13:47 | disposition home or self-care (01) ==
PROVIDERS: PCP Family Medicine; Visit Provider Surgery
PROC: 0DH63UZ Insertion of Feeding Device into Stomach, Percutaneous Approach (ICD-10-PCS; CPT 43246; principal; 2020-11-12 13:10)
DX: C15.9 Malignant neoplasm of esophagus, unspecified (principal); J44.9 Chronic obstructive pulmonary disease, unspecified; I25.10 Atherosclerotic heart disease of native coronary artery without angina pectoris; E11.22 Type 2 diabetes mellitus with diabetic chronic kidney disease; I12.9 Hypertensive chronic kidney disease with stage 1 through stage 4 chronic kidney disease, or unspecified chronic kidney disease; N18.9 Chronic kidney disease, unspecified; E78.5 Hyperlipidemia, unspecified; M19.90 Unspecified osteoarthritis, unspecified site; F41.9 Anxiety disorder, unspecified; E11.40 Type 2 diabetes mellitus with diabetic neuropathy, unspecified; F17.210 Nicotine dependence, cigarettes, uncomplicated; Z79.82 Long term (current) use of aspirin
CPT/HCPCS: 36416; 43246; 82962; 96365; J0690; J7030

== ENCOUNTER 2020-11-27 05:34 | Outpatient (RCR) | payer MEDICARE, SELFPAY ==
[2020-11-27 08:29] LABS: Basophils # 0.1 10^3/uL (0.0-0.1); Eosinophils # 0.1 10^3/uL (0.0-0.8); Hematocrit 32.2 % (42.0-52.0); Hemoglobin 9.7 g/dL (11.7-16.6); Lymphocytes # 1.8 10^3/uL (0.8-4.8); Lymphocytes % 30.1 %; Mean Corpuscular HGB Conc 30.1 g/dL (30.0-36.0); Mean Corpuscular Hemoglobin 24.7 pg (28.0-34.0); Mean Corpuscular Volume 82.1 fL (80-94); Mean Platelet Volume 8.8 fL (7.4-10.4); Monocytes # 1.7 10^3/uL (0.2-0.9); Monocytes % 27.8 %; Neutrophils # 2.36 10^3/uL (1.8-7.7); Neutrophils % 39.8 %; Nucleated Red Blood Cells % 0 %; Platelet Count 460 10^3/cmm (130-400); Red Blood Count 3.92 10^6/uL (4.1-5.3); Red Cell Distribution Width 17.5 % (12.1-15.1); White Blood Count 5.9 10^3/uL (4.0-10.0)
[2020-11-27 08:50] LABS: Alanine Aminotransferase 17 U/L (0-41); Albumin Level 3.5 g/dL (3.5-5.2); Alkaline Phosphatase 168 IU/L (40-130); Anion Gap 11.2 (5-19); Aspartate Amino Transferase 35 U/L (0-40); Blood Urea Nitrogen 15 mg/dL (6-20); Calcium 8.4 mg/dL (8.5-10.5); Carbon Dioxide 29 mmol/L (22-29); Chloride 98 mmol/L (98-107); Globulin 3.6 g/dL (1.3-4.6); Glucose 160 mg/dL (65-115); Osmolality Calculated 282 mOsm/kg (285-295); Potassium 4.2 mmol/L (3.5-5.1); Sodium 134 mmol/L (136-145); Total Bilirubin 0.2 mg/dL (0.15-1.2); Total Protein 7.1 g/dL (6.6-8.7)
--- NOTE | 2020-11-28 13:23 | ONC FU_ITS ---
Dr. Ramachandran follow up note Patient: Maximino Sandoval Unit #: [id number]: 1965 Dicatated By: Asaf Ramachandran M.D.Date of Visit:November 27, 2020 Onc Med Follow-up/Prog Note History of Present Illness: Mr. Maximino Sandoval, is a 55-year-old gentleman with history of T- LGL, on methotrexate/prednisone started on April 27, 2019, ultrasound abdomen done on August 01, 2020 showed spleen size normal. And history of rheumatoid arthritis diagnosed in 2003 now on prednisone, HCQ, methotrexate, Patient underwent EGD on August 14, 2020 for macrocytic anemia and progressive dysphagia, which showed at 35 cm from incisors esophageal thickening have circumferential, friable, easily bleeding lesion biopsy was done which showed moderately poorly differentiated invasive adenocarcinoma, CT scan of chest abdomen pelvis done on 11/11/2020 showed diffuse circumferential distal esophageal/GE junction thickening, few enlarged paraesophageal lymph nodes largest is 1.1 cm, slightly enlarged celiac and quinton hepatic lymph nodes and subcentimeter lung nodules left upper lobe and left lower lobe less than 5 mm. On September 11, [address] PET scan at [facility] which showed metastatic disease above and below diaphragm including multiple abdominal lymph nodes, hepatic lesions, largest is 3.3 x 3.1 cm with hepatic segment 7 SUV 11.1 osseous metastatic disease, lytic lesion centered in C5 vertebral body and left L2 pedicle and in the right fourth rib anterior MRI scan of the C-spine done on October 21, 2020 showed enhancing metastatic lesion C5 vertebral body with surrounding paravertebral soft tissue enhancement. 10 ventral epidural enhancement with mild central canal stenosis and moderate multilevel bony foraminal narrowing worse at C3-7 his labs checked on 09/19/2017 showed white blood count 8.5 hemoglobin 10.2 crit 31.2 MCV 82.8 platelet counts 568,000 and B12 was 462 iron was 11 normal being 65-175 reticulocyte count was 1.1 ferritin was 382.4 normal being 26 to 388, folate was 9.20 reticulocyte count was 1.1 His hemoglobin improved to 11.5 g on 10/26/2017 with discontinue of methotrexate and thrombocytosis also resolved and at that time patient was advised to follow with his PMD and to come to clinic on as-needed basis. During recent follow-up with his creative arts music therapist while patient was on xeljanz (tofactinib ) for his arthritis ,his follow-up CBC done on 08/10/2018 showed white blood count 3.87 normal being 3.8-10.7, neutrophil 35.5% lymphocytes 52.4% monocytes 10.9% ANC 1.37 with hemoglobin 13 g platelets 301,000. Patient was sent to hematology clinic for evaluation for neutropenia. As per patient xeljanz was discontinued month ago e.g. prior to this lab workup. Guardant 360 showed tumor mutational burden 14.35 e.g. more than 10, pembrolizumab is indicated, and other abnormality including CESARIO W266, CESARIO O2654F, CESARIO splice site indel, FDA approved therapy include olaparib, niraparib, rucaparib, talazoparib can be considered. Skin biopsy from left subaxillary area done on 02/05/2019 showed chronic inflammation now being treated with topical agent per Dr. Haley spine surgeon in [facility]. 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 A reactive process cannot be entirely excluded Came for follow-up, denies any specific complaint except generalized weakness and fatigue, patient recently finished radiation therapy to C-spine on November 17, 2020, tolerated well except mild sore throat and cough and on nausea., Based on his molecular profiling, as his TMB score was more than 10, systemic treatment with Keytruda/carboplatin/Taxol was recommended but insurance declined Keytruda but approved weekly carboplatin/Taxol, patient is here to discuss further treatment plan Medications: Aspirin 1 (81 mg) Tablet Oral daily, buPROPion HCl ER (SR) 1 (150 mg) Tablet SR 12 HR Oral daily, clonazePAM 1 (2 mg) Tablet Oral daily, Cymbalta 1 Capsule (of 100 mg) Capsule Delayed Release Particles Oral daily, Esomeprazole Magnesium 1 (40 mg) Capsule Delayed Release Oral daily, Ferrous Gluconate 1 (324 (37.5 fe) mg) Tablet Oral b.i.d., Ferrous Sulfate 1 (325 (65 fe) mg) Tablet Oral daily, Fish Oil 1 (1200 mg) Capsule Oral daily, Folic Acid 1 (1 mg) Tablet Oral daily, Gabapentin 1 (800 mg) Tablet Oral t.i.d., glipiZIDE ER 1 (5 mg) Tablet SR 24 HR Oral daily, Hydroxychloroquine Sulfate 2 Tablet (of 200 mg) Oral daily, Irbesartan 1 (75 mg) Tablet Oral daily, Lovastatin 1 (20 mg) Tablet Oral daily, Magnesium Oxide -Mg Supplement 1 (250 mg) Tablet Oral b.i.d., Methotrexate (2.5 mg) Tablet Oral Take as Directed, Nitroglycerin 1 (0.4 mg) Tablet, sublingual Sublingual PRN, OxyCODONE HCl 1 - 2 (30 mg) Tablet Oral q 4 hours PRN, Pantoprazole Sodium 1 (40 mg) Tablet, enteric coated Oral daily, PARoxetine HCl 1 (20 mg) Tablet Oral b.i.d., PredniSONE 1 Tablet (of 5 mg) Oral daily, Sildenafil Citrate 1 (25 mg) Tablet Oral PRN, tiZANidine HCl 1 Capsule (of 4 mg) Tablet Oral q 12 hours PRN Allergies: Lisinopril Review of Systems: Review of Systems is not available for this patient. Vital Signs: Performed on November 27, 2020 10:21 Height - 72.00 in Weight - 200 lbs (LOW) BSA - 2.13 sq.m BMI - 27.13 Temperature - 98.1 F (LOW) Pulse - 72 /min Respiration - 18 /min BP - 102/61 mm(hg) O2 Sat - 96 % Pain - 0 Fatigue - 9 Performance Status: 1 - No physically strenuous activity, but ambulatory and able to carry out light or sedentary work (e.g. office work, light house work). (ECOG) Physical Examination: ENMT - No mouth sores, no thrush, no jaundice, Respiratory - Lungs are clear to auscultation, Cardiovascular - Regular rate and rhythm of heart, Abdomen - Soft, bowel sounds present, Extremities - No visible edema or rash. Lab/Imaging: Test performed on Oct 28, 2020 16:48 Creatinine 0.7 mg/dL Cr Clearance (Est) 158.66 mL/min Impression: 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 CT PET scan done on September 11, 2020 at [place] shows mild thickening of the distal thoracic esophagus extending into gastric cardia with FDG uptake 21.2, Multiple hypermetabolic hepatic lesions largest is 3.3 x 3.1 cm in hepatic segment 7 SUV 11.1 Status post radiation therapy to C5 which he completed on November 17, 2020 Starting on weekly carboplatin/Taxol on December 03, 2020 Hypermetabolic lymphadenopathy within the gastrohepatic and retroperitoneal station, and para-aortic. There are hypermetabolic lytic lesion centered in C5 vertebral body, and left L2 pedicle, and anterior right fourth rib. 2 . 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 A reactive process cannot be entirely excluded. 3. Rheumatoid arthritis diagnosed in 2004 on prednisone, HCQ, methotrexate Bilateral subaxillary skin lesion questionable etiology, was referred to Dr. haley, spine surgeon in [facility], patient underwent skin biopsy from left subaxillary area, as per patient it shows chronic inflammation and now being treated with topical agent Plan: Discussed with patient regarding his labs white blood count 5.9 hemoglobin 9.7 hematocrit 32.2 platelets 460,000 CMP within normal limits Clinically, patient doing well with no new signs symptom, recently finished radiation therapy to C-spine for C5 involvement, based on his molecular profiling, patient was recommended chemoimmunotherapy with Keytruda/carboplatin/Taxol but insurance refused to cover immunotherapy despite of his TMB being more than 10, but approved weekly carboplatin/Taxol, in that case, patient has already Port-A-Cath placement, will proceed with his first cycle of chemotherapy with weekly carboplatin/Taxol on day 1 and 8 and repeat every 21 days on Tuesday, patient will take premedication with dexamethasone on Tuesday night, patient has history of diabetes we will consider sliding scale to monitor his blood sugar. As for generalized weakness and fatigue is concerned probably multifactorial including poor oral intake, patient was offered IV hydration which, patient declined and other possibility could be persistent mild to moderate anemia which could be multifactorial, as patient has history of rheumatoid arthritis. And T LGL, we will monitor his hemoglobin and consider blood transfusion if less than 8 g. Signed By: Asaf Ramachandran M.D. <<Signature on File>>
== END 2020-12-01 23:59 | disposition home or self-care (01) ==
LOC: ONCMED 05:34
PROVIDERS: PCP Family Medicine; Visit Provider Internal Medicine Hematology & Oncology
DX: Z51.0 Encounter for antineoplastic radiation therapy (principal); C15.5 Malignant neoplasm of lower third of esophagus; C79.51 Secondary malignant neoplasm of bone; D47.3 Essential (hemorrhagic) thrombocythemia; M06.9 Rheumatoid arthritis, unspecified; Z79.52 Long term (current) use of systemic steroids; Z79.899 Other long term (current) drug therapy; Z92.21 Personal history of antineoplastic chemotherapy
CPT/HCPCS: 36591; 77014; 77336; 77387; 77412; 80053; 85025; 99214

== ENCOUNTER 2020-12-04 06:19 | Outpatient (RCR) | payer MEDICARE, SELFPAY ==
[2020-12-04] MEDS: sodium chloride 0.9% 250 ML 75 ML IV (09:41)
[2020-12-04] MEDS: palonosetron 0.25 mg/5 mL SDV IV (09:41)
[2020-12-04] MEDS: famotidine 20 mg/2 mL INJ IVP (09:42)
[2020-12-04] MEDS: diphenhydrAMINE 50 mg/mL SDV 1mL 25 MG IV (09:43)
[2020-12-04] MEDS: fosaprepitant 150 MG in sodium chloride 0.9% 150 ML 300 MG IV (10:00)
== END 2020-12-05 12:50 | disposition home or self-care (01) ==
LOC: ONCMED 06:19
PROVIDERS: PCP Family Medicine; Visit Provider Internal Medicine Medical Oncology
DX: Z51.11 Encounter for antineoplastic chemotherapy (principal); C15.5 Malignant neoplasm of lower third of esophagus; C79.51 Secondary malignant neoplasm of bone; D47.3 Essential (hemorrhagic) thrombocythemia; Z79.899 Other long term (current) drug therapy
CPT/HCPCS: 96367; 96375; 96413; 96417; J1100; J1200; J1453; J2469; J3490; J7030; J7040; J7050; J9045; J9267

== ENCOUNTER 2020-12-05 12:58 | Emergency (ER) | payer MEDICARE, SELFPAY ==
[2020-12-05 13:04] VITALS: BP 101/69; PULSE 65; RESP 16; TEMP 37.1; O2SAT 93; BMI 29.5
--- NOTE | 2020-12-05 13:11 | XR_ITS ---
WS: [id number] Portable AP upright chest, 12/05/2020 Clinical Data: reduced breath sounds Comparison: PA chest, 10/24/2020. Findings: No nodules, masses or effusions are seen. The heart is enlarged. The pulmonary vascularity is not increased. No pneumonia or pneumothorax is seen. There is a left Port-A-Cath in good position. Monitor leads are on the chest wall. XR/XR chest 1V portable [id number] Impression: Cardiomegaly
--- NOTE | 2020-12-05 13:12 | ECG_ITS ---
[facility] Test Date: 2020-12-05 Pat Name: Maximino Sandoval Department: Room: Gender: Male [employer]er: : 1965 Requested By: Jake Burris Order Number: [id number] William MD: HARRISON ABREU Measurements Intervals [place] Rate: 61 P: 9 CA: 217 QRS: 17 QRSD: 104 T: -3 QT: 420 QTc: 424 Interpretive Statements SINUS RHYTHM WITH FIRST DEGREE AV BLOCK INCOMPLETE RIGHT BUNDLE BRANCH BLOCK [90+ ms QRS DURATION, TERMINAL R IN V1/V2, 40+ ms S IN I/aVL/V4/V5/V6] PROBABLE INFERIOR MYOCARDIAL INFARCTION [35 ms Q WAVE IN II/aVF], PROBABLY OLD Compared to ECG 07/04/2019 03:27:42 First degree AV block now present Incomplete right bundle-branch block now present Myocardial infarct finding still present Electronically Signed On 12-06-2020 20:21:54 CDT by HARRISON ABREU [email or web address]
--- NOTE | 2020-12-05 13:13 | ED_ITS ---
HPI - Weakness General: Chief complaint: Weakness Stated complaint: sent by , chemo yestreday weakness,Low BP Time Seen by Provider: 12/05/20 13:03 History of Present Illness: HPI Narrative: The patient is a 55-year-old male with past medical history esophageal cancer who just started chemotherapy yesterday and received his first dose yesterday. He says today he felt dizzy while he was at the [employer] and had an episode of low blood pressure. Also noted his glucose to be in the high 200s. He has esophageal cancer and leukemia and follows Dr. Ramachandran. He has a feeding tube. Apparently his esophagus is strictured and he can only pass minimal liquids. He has been giving himself feeds but says that he probably has been drinking less fluids since yesterday. MD Complaint: generalized weakness Severity: moderate Relieving factors: none Exacerbating factors: none Associated symptoms: Reports no associated symptoms; Denies chest pain, chills, confusion, fever(s) or headache(s) Review of Systems General: Reports: 10 or more systems reviewed and unremarkable except in HPI and below Const: Reports: fatigue; Denies: fever(s) or chills Eyes: Denies: change in vision, blurry vision or eye redness ENMT: Denies: throat pain, swelling of lips/tongue, ear or mastoid pain or nasal congestion Card: Denies: chest pain, palpitations, irregular heart rhythm, edema, dyspnea on exertion or orthopnea Resp: Denies: dyspnea, productive cough or non-productive cough GI: Denies: abdominal pain, diarrhea or GI cramping : Denies: flank pain, urinary frequency or urinary urgency Musc: Denies: neck pain, back pain, extremity pain, joint pain, joint redness, limited range of motion or muscle weakness Skin/Breast: Denies: rash, pruritus, erythema, skin pain or skin tenderness Neuro: Denies: headache(s), numbness in extremities, weakness in extremities, sensory changes, difficulty walking, dizziness, confusion or Slurred speech present Psych: Denies: anxiety or depression Endo: Denies: polyuria All/Imm: Denies: urticaria, throat swelling or tongue swelling PFSH ED PFSH: Medical History Anemia Atypical lymphocytosis Chronic kidney disease COPD (chronic obstructive pulmonary disease) Coronary artery disease Diabetes mellitus Dilutional hyponatremia (~07/2019) Dyslipidemia Esophageal adenocarcinoma Gastro-esophageal reflux disease without esophagitis Generalized anxiety disorder History of heart attack Hypertension Lumbago Rheumatoid arthritis Surgical History H/O heart artery stent History of colonoscopy History of endoscopy (08/14/20) Esophageal mass Port-A-Cath in place (09/29/20) Status post insertion of percutaneous endoscopic gastrostomy (PEG) tube (11/12/20) Family History Family/Other Cancer Family members in general Diabetes Family members in general Hypothyroid Family members in general Social History Smoking and tobacco status: current some day smoker cigarettes Packs smoked per day: 1 Years cigarettes smoked: 30 Quit status (tobacco): quit date established Second hand smoke exposure: No Smoking risk assessment/counseling performed?: No Alcohol intake: never Desire information about alcohol rehabilitation?: No Counseling given: No Desire information about substance/drug rehabilitation?: No Counseling given: No Caregiver/support person: No Lives independently: Yes Household members: significant other Marital status: Single History of recent travel: No Current gender identity: Male Physical Exam Const: COMMON NORMALS: no acute distress, average body habitus, patient oriented x3, no limitations, healthy appearing, alert and well nourished GENERAL APPEARANCE: cooperative, comfortable, well kempt and well developed ORIENTATION/CONSCIOUSNESS: Yes awake, Yes oriented to person, Yes oriented to place and Yes oriented to time HENMT: COMMON NORMALS: normocephalic, external ears normal and Normal external nose present HEAD & SCALP: normal to inspection and normocephalic NOSE: Normal external nose present EXTERNAL EAR: Yes external ears normal MOUTH: Normal oral and palatal mucosa present THROAT: posterior oropharynx normal Eye: COMMON NORMALS: Equal, round and reactive pupils present and EOMs intact bilaterally GENERAL EYE: appearance normal, both eyes and all related structures PUPIL: Yes Equal, round and reactive pupils present Neck/C-Spine: COMMON NORMALS: full ROM, no lymphadenopathy, no meningeal signs and no JVD GENERAL: Yes normal visual inspection Lymph: LYMPHATIC: no lymphadenopathy noted Chest: COMMONS NORMALS: normal inspection of the chest and normal palpation of entire chest wall Resp: COMMON NORMALS: normal respiratory effort, No retractions, No use of accessory muscles, clear to auscultation bilaterally and percussion normal EFFORT & INSPECTION: Yes able to speak in complete sentences AUSCULTATION: clear to auscultation bilaterally PERCUSSION: percussion normal Cardio: COMMON NORMALS: no JVD, regular rate, regular rhythm, S1 normal heart sound present, S2 normal heart sound present and Peripheral pulses 2+ throughout RATE: regular rate RHYTHM: regular rhythm HEART SOUNDS: S1 normal heart sound present and S2 normal heart sound present PERIPHERAL PULSES: Peripheral pulses 2+ throughout GI: COMMON NORMALS: Normal to inspection, nondistended, normoactive bowel sounds present, Soft to palpation, non-tender and no masses INSPECTION: Yes normal to inspection PALPATION: Yes Soft to palpation : COMMON NORMALS: Yes no CVA tenderness BLADDER/KIDNEY EXAM: Yes no CVA tenderness Back/Pelvis: COMMON NORMALS: no CVA tenderness, thoracic and lumbar spine normal to inspection, no thoracic nor lumbar tenderness and thoraco-lumbar ROM normal Extremity: COMMON NORMALS: normal to inspection, full ROM, capillary refill normal, no joint enlargement and no pedal edema GENERAL: Yes normal exam except as noted Neuro: COMMON NORMALS: patient oriented x3, CN's II-XII intact bilaterally, moves all extremities, no focal motor deficits, no sensory deficits noted and gait normal SENSORIUM/ORIENTATION: Yes alert, Yes oriented to person, Yes oriented to place and Yes oriented to time MENINGEAL SIGNS: Yes no meningeal signs Psych: COMMON NORMALS: mental status grossly normal, Normal thought process present, cooperative, normal affect and speech normal APPEARANCE: Yes well kempt ATTITUDE: Yes calm SPEECH: Yes normal speech THOUGHT PROCESS: N ormal thought process present Skin: COMMON NORMALS: no rashes or lesions noted GENERAL SKIN EXAM: no rashes or lesions noted Course Vital Signs: Vital signs: Vital Signs Temperature 98.7 F 12/05/20 13:04 Pulse Rate 62 12/05/20 15:32 Respiratory Rate 14 12/05/20 15:32 Blood Pressure 127/85 12/05/20 15:32 Pulse Oximetry 99 12/05/20 15:32 MDM - Weakness MDM Narrative: Medical decision making narrative: The patient came in after an episode of hypotension, weakness, and dizziness. He started chemotherapy yesterday. He has a G-tube because cancer is in his esophagus and he is unable to eat because of a stricture. He was given a liter of fluids and had resolution of his symptoms and normalization of his blood pressure. He is stable for discharge. Discussed the dropping hemoglobin levels with Dr. Ramachandran. Recommended he follow-up Tuesday with him. Return to ER with worsening symptoms at any time. Lab Data: Labs: Lab Results 12/05/20 12/05/20 12/05/20 Range/Units 13:43 13:43 13:43 WBC 5.6 (4.0-10.0) 10^3/ uL RBC 3.34 L (4.1-5.3) 10^6/u L Hgb 8.3 L (11.7-16.6) g/dL Hct 26.0 L (42.0-52.0) % MCV 77.8 L (80-94) fL MCH 24.9 L (28.0-34.0) pg MCHC 31.9 (30.0-36.0) g/dL RDW 17.9 H (12.1-15.1) % Plt Count 394 (130-400) 10^3/c mm MPV 9.4 (7.4-10.4) fL Neut % (Auto) 82.8 % Lymph % (Auto) 4.1 % [place] % (Auto) 12.0 % Eos % (Auto) 0.0 % Baso % (Auto) 0.2 % Neut # (Auto) 4.61 (1.8-7.7) 10^3/u L Lymph # (Auto) 0.2 L (0.8-4.8) 10^3/u L [place] # (Auto) 0.7 (0.2-0.9) 10^3/u L Eos # (Auto) 0.0 (0.0-0.8) 10^3/u L Baso # (Auto) 0.0 (0.0-0.1) 10^3/u L Nucleated RBC % (a uto) 0 % Nucleated RBCs # 0.0 /100WBC Sodium 140 (136-145) mmol/L Potassium 4.6 (3.5-5.1) mmol/L Chloride 107 (98-107) mmol/L Carbon Dioxide 22 (22-29) mmol/L Anion Gap 15.6 (5-19) BUN 25 H (6-20) mg/dL Creatinine 0.6 L (0.7-1.2) mg/dL GFR Calculation 138.9 H (90-130) mL/min Glucose 114 (65-115) mg/dL Calculated Osmolal ity 295 (285-295) mOsm/k g Lactate 1.9 (0.5-2.2) mmol/L Calcium 7.8 L (8.5-10.5) mg/dL Total Bilirubin 0.2 (0.15-1.2) mg/dL AST 45 H (0-40) U/L ALT 29 (0-41) U/L Alkaline Phosphata se 184 H (40-130) IU/L Troponin T Baselin e (0-15) ng/L Total Protein 6.1 L (6.6-8.7) g/dL Albumin 3.7 (3.5-5.2) g/dL Globulin 2.4 (1.3-4.6) g/dL Urine Color (Yellow) Urine Appearance (CLEAR) Urine pH (5-7) Ur Specific Gravit y (1.005-1.030) Urine Protein (Negative) Urine Glucose (UA) (Normal) Urine Ketones (Negative) Urine Blood (Negative) Urine Nitrate (Negative) Urine Bilirubin (Negative) Urine Urobilinogen (Negative) mg/dL Ur Leukocyte [place] ase (Negative) 12/05/20 12/05/20 Range/Units 13:43 14:25 WBC (4.0-10.0) 10^3/ uL RBC (4.1-5.3) 10^6/u L Hgb (11.7-16.6) g/dL Hct (42.0-52.0) % MCV (80-94) fL MCH (28.0-34.0) pg MCHC (30.0-36.0) g/dL RDW (12.1-15.1) % Plt Count (130-400) 10^3/c mm MPV (7.4-10.4) fL Neut % (Auto) % Lymph % (Auto) % [place] % (Auto) % Eos % (Auto) % Baso % (Auto) % Neut # (Auto) (1.8-7.7) 10^3/u L Lymph # (Auto) (0.8-4.8) 10^3/u L [place] # (Auto) (0.2-0.9) 10^3/u L Eos # (Auto) (0.0-0.8) 10^3/u L Baso # (Auto) (0.0-0.1) 10^3/u L Nucleated RBC % (a uto) % Nucleated RBCs # /100WBC Sodium (136-145) mmol/L Potassium (3.5-5.1) mmol/L Chloride (98-107) mmol/L Carbon Dioxide (22-29) mmol/L Anion Gap (5-19) BUN (6-20) mg/dL Creatinine (0.7-1.2) mg/dL GFR Calculation (90-130) mL/min Glucose (65-115) mg/dL Calculated Osmolal ity (285-295) mOsm/k g Lactate (0.5-2.2) mmol/L Calcium (8.5-10.5) mg/dL Total Bilirubin (0.15-1.2) mg/dL AST (0-40) U/L ALT (0-41) U/L Alkaline Phosphata se (40-130) IU/L Troponin T Baselin e 6 (0-15) ng/L Total Protein (6.6-8.7) g/dL Albumin (3.5-5.2) g/dL Globulin (1.3-4.6) g/dL Urine Color Yellow (Yellow) Urine Appearance Clear (CLEAR) Urine pH 5 (5-7) Ur Specific Gravit y 1.020 (1.005-1.030) Urine Protein Neg (Negative) Urine Glucose (UA) Norm (Normal) Urine Ketones Negative (Negative) Urine Blood Neg (Negative) Urine Nitrate Negative (Negative) Urine Bilirubin Neg (Negative) Urine Urobilinogen Norm (Negative) mg/dL Ur Leukocyte [place] ase Negative (Negative) Discharge Plan Discharge Patient Disposition: Home Clinical Impression: Weakness, Dehydration, Hypotension Condition: Stable Prescriptions: No Action oxycodone 15 mg tablet 30 mg PO Q6H PRN (Reason: Pain) RF: 0 clonazepam [Klonopin] 2 mg tablet See Rx Instructions .ROUTE .COMPLEX RF: 0 (DME) lancets [OneTouch Delica Lancets] 33 gauge misc See Rx Instructions .ROUTE .MEDSUPPLY Qty: 100 RF: 5 prednisone 5 mg tablet 5 mg PO DAILY@0830 RF: 0 sildenafil [Viagra] 25 mg tablet 25 mg PO DAILY PRN (Reason: sexual activity) Qty: 30 RF: 1 tizanidine 4 mg capsule 4 mg PO Q12H Qty: 60 RF: 2 methotrexate sodium 2.5 mg tablet 25 mg .ROUTE .weekly Qty: 300 RF: 2 (DME) OneTouch Ultra Blue Test Strip Strip See Rx Instructions .ROUTE .MEDSUPPLY Qty: 50 RF: 5 nitroglycerin 0.4 mg tablet, sublingual See Rx Instructions .ROUTE .COMPLEX Qty: 25 RF: 0 magnesium oxide 250 mg magnesium Tablet 250 mg PO BID@829,2029 RF: 0 Zoloft 100 mg tablet 100 mg PO DAILY@0830 RF: 0 glipizide 5 mg tablet extended release 24hr 5 mg PO DAILY@0830 RF: 0 aspirin 81 mg tablet,delayed release (DR/EC) 81 mg PO DAILY@0830 RF: 0 gabapentin 800 mg tablet 800 mg PO TID@0830,1229,2029 RF: 0 Avapro 75 mg tablet 75 mg PO DAILY@0830 RF: 0 folic acid 1 mg tablet 1 mg PO DAILY@0830 RF: 0 hydroxychloroquine 200 mg tablet 400 mg PO DAILY@0830 RF: 0 lovastatin 20 mg tablet 20 mg PO DAILY@0830 RF: 0 bupropion HCl 150 mg tablet extended release 24 hr 150 mg PO DAILY@0830 RF: 0 ferrous sulfate 324 mg (65 mg iron) tablet,delayed release (DR/EC) 324 mg PO DAILY@0830 RF: 0 ondansetron HCl 4 mg tablet 4 mg PO Q8H PRN (Reason: NAUSEA/VOMITING) RF: 0 prochlorperazine maleate 10 mg tablet 10 mg PO Q4H PRN (Reason: NAUSEA/VOMITING) RF: 0 dexamethasone 4 mg tablet See Rx Instructions .ROUTE .COMPLEX RF: 0 Humulin R Regular U-100 Insuln 100 unit/mL solution See Rx Instructions .ROUTE .COMPLEX MDD 44 UNITS RF: 0 lorazepam 1 mg tablet 0.5 - 1 mg PO TID PRN (Reason: Anxiety) RF: 0 Discharge Orders: Discharge ED (Routine); Ordered 12/05/20 Ordered By: Jake Burris Referrals: Stephany Villalpando FNP-C [Primary Care Provider] - Discharge Diet: Advance as tolerated Discharge Activity: Resume usual activity Patient Instructions: Dehydration (ED), Opioid Safety Activity Restrictions/Additional Instructions: You have had an episode of dizziness and low blood pressure likely from dehydration. We have given you a liter of fluids with some improvement of your symptoms. The only lab abnormality that could be significant is your hemoglobin is slowly dropping and is currently 8.3. I have discussed this with Dr. Ramachandran who recommends you call him and see him Tuesday. Return to the ER at anytime with worsening symptoms otherwise follow-up with Dr. Ramachandran Tuesday. Coding Level of Care Code ED Light Coil Winder for Libra Fwd Exam Comprehensive
[2020-12-05 13:44] VITALS: BP 101/69; PULSE 65; RESP 16; O2SAT 97
[2020-12-05] MEDS: sodium chloride 0.9% 1,000 ML 999 ML IV (13:53)
--- NOTE | 2020-12-05 13:55 | PC.NURSE ---
feeding tube to LUQ dressing dry and intact. patient denied any pain or nausea at this time.
[2020-12-05 14:06] LABS: Basophils % 0.2 %; Hemoglobin 8.3 g/dL (11.7-16.6); Lymphocytes # 0.2 10^3/uL (0.8-4.8); Lymphocytes % 4.1 %; Mean Corpuscular HGB Conc 31.9 g/dL (30.0-36.0); Mean Corpuscular Hemoglobin 24.9 pg (28.0-34.0); Mean Corpuscular Volume 77.8 fL (80-94); Mean Platelet Volume 9.4 fL (7.4-10.4); Monocytes # 0.7 10^3/uL (0.2-0.9); Neutrophils # 4.61 10^3/uL (1.8-7.7); Neutrophils % 82.8 %; Nucleated Red Blood Cells % 0 %; Platelet Count 394 10^3/cmm (130-400); Red Blood Count 3.34 10^6/uL (4.1-5.3); Red Cell Distribution Width 17.9 % (12.1-15.1); White Blood Count 5.6 10^3/uL (4.0-10.0)
[2020-12-05 14:21] VITALS: BP 113/82; PULSE 66; RESP 16; O2SAT 97
[2020-12-05 14:27] LABS: Lactate (Lactic Acid level) 1.9 mmol/L (0.5-2.2); Troponin(5th) Baseline 6 ng/L (0-15)
[2020-12-05 14:28] LABS: Alanine Aminotransferase 29 U/L (0-41); Albumin Level 3.7 g/dL (3.5-5.2); Alkaline Phosphatase 184 IU/L (40-130); Anion Gap 15.6 (5-19); Aspartate Amino Transferase 45 U/L (0-40); Blood Urea Nitrogen 25 mg/dL (6-20); Calcium 7.8 mg/dL (8.5-10.5); Carbon Dioxide 22 mmol/L (22-29); Chloride 107 mmol/L (98-107); Globulin 2.4 g/dL (1.3-4.6); Glomerular Filtration Rate 138.9 mL/min (90-130); Glucose 114 mg/dL (65-115); Osmolality Calculated 295 mOsm/kg (285-295); Potassium 4.6 mmol/L (3.5-5.1); Sodium 140 mmol/L (136-145); Total Bilirubin 0.2 mg/dL (0.15-1.2); Total Protein 6.1 g/dL (6.6-8.7)
[2020-12-05 14:33] LABS: Creatinine Clr Calc Pharmacy 151.2199
[2020-12-05 14:38] LABS: Add Urine Microscopic? NO; Charge for UA Resulting for Rev
[2020-12-05 14:49] LABS: Bilirubin Urine Neg (Negative); Blood Urine Neg (Negative); Glucose Urine UA Norm (Normal); Ketones Urine Negative (Negative); Leukocyte Esterase Urine Negative (Negative); Nitrate Urine Negative (Negative); Protein Urine Neg (Negative); Urine Appearance Clear (CLEAR); Urine Color Yellow (Yellow); Urobilinogen Urine Norm (Negative); pH Urine 5 (5-7)
--- NOTE | 2020-12-05 15:12 | ECG_ITS ---
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: : [id number] Requested By: Jake Burris Order Number: [id number] Reading MD: HARRISON ABREU Measurements Intervals [place] Rate: 63 P: 12 SD: 223 QRS: 25 QRSD: 107 T: -5 QT: 432 QTc: 444 Interpretive Statements SINUS RHYTHM WITH FIRST DEGREE AV BLOCK INCOMPLETE RIGHT BUNDLE BRANCH BLOCK [90+ ms QRS DURATION, TERMINAL R IN V1/V2, 40+ ms S IN I/aVL/V4/V5/V6] PROBABLE INFERIOR MYOCARDIAL INFARCTION [35 ms Q WAVE IN II/aVF], PROBABLY OLD Compared to ECG 12/05/2020 13:45:02 No significant changes Electronically Signed On 12-06-2020 20:24:55 CDT by HARRISON ABREU [email or web address]
[2020-12-05 15:32] VITALS: BP 127/85; PULSE 62; RESP 14; O2SAT 99
[2020-12-05 16:35] LABS: Troponin 5 2HR Delta 0 ABS# (0-10)
[2020-12-05 16:43] VITALS: BP 130/82; PULSE 68; RESP 15; O2SAT 99
== END 2020-12-05 16:40 | disposition home or self-care (01) ==
PROVIDERS: Emergency Provider Family Medicine; PCP Nurse Practitioner
DX: R53.1 Weakness (principal); E86.0 Dehydration; I95.9 Hypotension, unspecified; Z79.82 Long term (current) use of aspirin; Z79.4 Long term (current) use of insulin; J44.9 Chronic obstructive pulmonary disease, unspecified; I25.10 Atherosclerotic heart disease of native coronary artery without angina pectoris; E11.9 Type 2 diabetes mellitus without complications; E78.5 Hyperlipidemia, unspecified; I10 Essential (primary) hypertension; F17.210 Nicotine dependence, cigarettes, uncomplicated
CPT/HCPCS: 36415; 71045; 80053; 81003; 83605; 84484; 85025; 93005; 96360; 99284; J7030

== ENCOUNTER 2020-12-31 05:52 | Outpatient (RCR) | payer MEDICARE, SELFPAY ==
[2020-12-11 11:11] LABS: Hematocrit 29.6 % (42.0-52.0); Hemoglobin 9.1 g/dL (11.7-16.6); Lymphocytes # 0.2 10^3/uL (0.8-4.8); Lymphocytes % 16.5 %; Mean Corpuscular HGB Conc 30.7 g/dL (30.0-36.0); Mean Corpuscular Hemoglobin 24.2 pg (28.0-34.0); Mean Corpuscular Volume 78.7 fL (80-94); Mean Platelet Volume 9.2 fL (7.4-10.4); Monocytes # 0.1 10^3/uL (0.2-0.9); Monocytes % 4.5 %; Neutrophils # 1.03 10^3/uL (1.8-7.7); Neutrophils % 77.5 %; Nucleated Red Blood Cells % 0 %; Platelet Count 365 10^3/cmm (130-400); Red Blood Count 3.76 10^6/uL (4.1-5.3); Red Cell Distribution Width 17.7 % (12.1-15.1); White Blood Count 1.3 10^3/uL (4.0-10.0)
[2020-12-11 11:35] LABS: Alanine Aminotransferase 23 U/L (0-41); Albumin Level 3.7 g/dL (3.5-5.2); Alkaline Phosphatase 147 IU/L (40-130); Anion Gap 15.6 (5-19); Aspartate Amino Transferase 32 U/L (0-40); Blood Urea Nitrogen 26 mg/dL (6-20); Calcium 8.6 mg/dL (8.5-10.5); Carbon Dioxide 24 mmol/L (22-29); Chloride 95 mmol/L (98-107); Globulin 3.2 g/dL (1.3-4.6); Glucose 247 mg/dL (65-115); Osmolality Calculated 283 mOsm/kg (285-295); Potassium 4.6 mmol/L (3.5-5.1); Sodium 130 mmol/L (136-145); Total Bilirubin 0.3 mg/dL (0.15-1.2); Total Protein 6.9 g/dL (6.6-8.7)
[2020-12-16 11:12] LABS: Hematocrit 27.8 % (42.0-52.0); Hemoglobin 8.4 g/dL (11.7-16.6); Lymphocytes # 0.1 10^3/uL (0.8-4.8); Lymphocytes % 6.5 %; Mean Corpuscular HGB Conc 30.2 g/dL (30.0-36.0); Mean Corpuscular Hemoglobin 24.6 pg (28.0-34.0); Mean Corpuscular Volume 81.3 fL (80-94); Mean Platelet Volume 9.2 fL (7.4-10.4); Monocytes # 0.1 10^3/uL (0.2-0.9); Monocytes % 3.7 %; Neutrophils # 1.93 10^3/uL (1.8-7.7); Neutrophils % 88.9 %; Nucleated Red Blood Cells % 0 %; Platelet Count 303 10^3/cmm (130-400); Red Blood Count 3.42 10^6/uL (4.1-5.3); Red Cell Distribution Width 18.9 % (12.1-15.1); White Blood Count 2.2 10^3/uL (4.0-10.0)
[2020-12-16 11:46] LABS: Alanine Aminotransferase 21 U/L (0-41); Albumin Level 3.7 g/dL (3.5-5.2); Alkaline Phosphatase 118 IU/L (40-130); Anion Gap 15.2 (5-19); Aspartate Amino Transferase 22 U/L (0-40); Blood Urea Nitrogen 13 mg/dL (6-20); Calcium 8.7 mg/dL (8.5-10.5); Carbon Dioxide 22 mmol/L (22-29); Chloride 99 mmol/L (98-107); Globulin 2.4 g/dL (1.3-4.6); Glomerular Filtration Rate 116.2 mL/min (90-130); Glucose 197 mg/dL (65-115); Osmolality Calculated 280 mOsm/kg (285-295); Potassium 4.2 mmol/L (3.5-5.1); Sodium 132 mmol/L (136-145); Total Bilirubin 0.2 mg/dL (0.15-1.2); Total Protein 6.1 g/dL (6.6-8.7)
[2020-12-16 15:33] LABS: Ferritin 198 ng/mL (30-400); Iron 63 ug/dL (59-158); Percent Saturation 30.7 % (20-50); Total Iron Binding Capacity 205 mcg/dl; Unsaturated Iron Binding 142 ug/dL (112-347)
[2020-12-16 15:46] LABS: Vitamin B12 1126 pg/mL (232-1245)
[2020-12-22 10:09] LABS: Basophils % 0.3 %; Eosinophils % 0.1 %; Hematocrit 28.3 % (42.0-52.0); Hemoglobin 8.6 g/dL (11.7-16.6); Lymphocytes # 0.6 10^3/uL (0.8-4.8); Lymphocytes % 4.1 %; Mean Corpuscular HGB Conc 30.4 g/dL (30.0-36.0); Mean Corpuscular Hemoglobin 25.3 pg (28.0-34.0); Mean Corpuscular Volume 83.2 fL (80-94); Mean Platelet Volume 8.8 fL (7.4-10.4); Monocytes # 1.4 10^3/uL (0.2-0.9); Monocytes % 9.5 %; Neutrophils # 12.24 10^3/uL (1.8-7.7); Neutrophils % 83.8 %; Nucleated Red Blood Cells % 0 %; Platelet Count 284 10^3/cmm (130-400); Red Cell Distribution Width 21.2 % (12.1-15.1); White Blood Count 14.6 10^3/uL (4.0-10.0)
[2020-12-22] MEDS: sodium chloride 0.9% 1,000 ML 999 ML IV (10:45)
[2020-12-22 10:51] LABS: Alanine Aminotransferase 21 U/L (0-41); Albumin Level 3.6 g/dL (3.5-5.2); Alkaline Phosphatase 140 IU/L (40-130); Anion Gap 13.8 (5-19); Aspartate Amino Transferase 22 U/L (0-40); Blood Urea Nitrogen 21 mg/dL (6-20); Calcium 8.2 mg/dL (8.5-10.5); Carbon Dioxide 25 mmol/L (22-29); Chloride 102 mmol/L (98-107); Globulin 2.1 g/dL (1.3-4.6); Glomerular Filtration Rate 116.2 mL/min (90-130); Glucose 68 mg/dL (65-115); Osmolality Calculated 285 mOsm/kg (285-295); Potassium 3.8 mmol/L (3.5-5.1); Sodium 137 mmol/L (136-145); Total Bilirubin 0.2 mg/dL (0.15-1.2); Total Protein 5.7 g/dL (6.6-8.7)
[2020-12-22] MEDS: palonosetron 0.25 mg/5 mL SDV IVP (11:35)
[2020-12-22] MEDS: famotidine 20 mg/2 mL INJ IVP (11:36)
[2020-12-22] MEDS: diphenhydrAMINE 50 mg/mL SDV 1mL 25 MG IVP (11:38)
[2020-12-22] MEDS: fosaprepitant 150 MG in sodium chloride 0.9% 150 ML 300 MG IV (11:56)
[2020-12-24] MEDS: sodium chloride 0.9% 1,000 ML 999 ML IV (13:50)
[2020-12-24 14:45] LABS: Basophils # 0.2 10^3/uL (0.0-0.1); Basophils % 0.6 %; Hematocrit 26.3 % (42.0-52.0); Hemoglobin 7.8 g/dL (11.7-16.6); Lymphocytes # 2.3 10^3/uL (0.8-4.8); Lymphocytes % 7.9 %; Mean Corpuscular HGB Conc 29.7 g/dL (30.0-36.0); Mean Corpuscular Hemoglobin 24.8 pg (28.0-34.0); Mean Corpuscular Volume 83.5 fL (80-94); Mean Platelet Volume 9.8 fL (7.4-10.4); Monocytes # 0.9 10^3/uL (0.2-0.9); Monocytes % 3.1 %; Neutrophils # 25.45 10^3/uL (1.8-7.7); Neutrophils % 87.2 %; Nucleated Red Blood Cells % 0 %; Platelet Count 211 10^3/cmm (130-400); Red Blood Count 3.15 10^6/uL (4.1-5.3); Red Cell Distribution Width 21.6 % (12.1-15.1); White Blood Count 29.2 10^3/uL (4.0-10.0)
[2020-12-24 15:10] LABS: Slide Review Slide Review Perform
[2020-12-24 15:13] LABS: Alanine Aminotransferase 21 U/L (0-41); Albumin Level 3.2 g/dL (3.5-5.2); Alkaline Phosphatase 117 IU/L (40-130); Anion Gap 8.8 (5-19); Aspartate Amino Transferase 26 U/L (0-40); Blood Urea Nitrogen 37 mg/dL (6-20); Calcium 7.8 mg/dL (8.5-10.5); Carbon Dioxide 27 mmol/L (22-29); Chloride 103 mmol/L (98-107); Globulin 1.9 g/dL (1.3-4.6); Glomerular Filtration Rate 116.2 mL/min (90-130); Glucose 57 mg/dL (65-115); Osmolality Calculated 286 mOsm/kg (285-295); Potassium 3.8 mmol/L (3.5-5.1); Sodium 135 mmol/L (136-145); Total Bilirubin 0.4 mg/dL (0.15-1.2); Total Protein 5.1 g/dL (6.6-8.7)
[2020-12-25] MEDS: diphenhydrAMINE 25 mg Capsule PO ×2 (08:45→09:15)
[2020-12-25] MEDS: acetaminophen 325 mg Tablet 650 MG PO (09:15)
[2020-12-25] MEDS: sodium chloride 0.9% 250 ML 75 ML IV (09:15)
[2020-12-25 09:45] VITALS: BP 103/39; PULSE 82; RESP 18; TEMP 36.3; O2SAT 96
[2020-12-25 10:00] VITALS: BP 93/57; PULSE 58; RESP 18; TEMP 36.3; O2SAT 98
[2020-12-25] MEDS: FUROsemide 10 mg/mL SDV 2mL 20 MG IV (11:30)
[2020-12-25 13:10] VITALS: BP 108/66; PULSE 54; RESP 18; TEMP 36.6; O2SAT 99
[2020-12-29 08:27] LABS: Basophils % 0.6 %; Hematocrit 36.1 % (42.0-52.0); Lymphocytes # 0.2 10^3/uL (0.8-4.8); Lymphocytes % 12.8 %; Mean Corpuscular HGB Conc 30.5 g/dL (30.0-36.0); Mean Corpuscular Hemoglobin 25.9 pg (28.0-34.0); Mean Corpuscular Volume 85.1 fL (80-94); Mean Platelet Volume 9.2 fL (7.4-10.4); Monocytes # 0.1 10^3/uL (0.2-0.9); Monocytes % 4.9 %; Neutrophils # 1.33 10^3/uL (1.8-7.7); Neutrophils % 81.1 %; Nucleated Red Blood Cells % 0 %; Platelet Count 178 10^3/cmm (130-400); Red Blood Count 4.24 10^6/uL (4.1-5.3); White Blood Count 1.6 10^3/uL (4.0-10.0)
[2020-12-29 08:49] LABS: Alanine Aminotransferase 26 U/L (0-41); Albumin Level 3.5 g/dL (3.5-5.2); Alkaline Phosphatase 135 IU/L (40-130); Anion Gap 14.8 (5-19); Aspartate Amino Transferase 33 U/L (0-40); Blood Urea Nitrogen 24 mg/dL (6-20); Carbon Dioxide 25 mmol/L (22-29); Chloride 102 mmol/L (98-107); Globulin 2.8 g/dL (1.3-4.6); Glomerular Filtration Rate 116.2 mL/min (90-130); Glucose 231 mg/dL (65-115); Osmolality Calculated 295 mOsm/kg (285-295); Potassium 4.8 mmol/L (3.5-5.1); Sodium 137 mmol/L (136-145); Total Bilirubin 0.4 mg/dL (0.15-1.2); Total Protein 6.3 g/dL (6.6-8.7)
[2020-12-29] MEDS: sodium chloride 0.9% 1,000 ML 999 ML IV (10:30)
[2020-12-31 14:01] LABS: Eosinophils % 0.1 %; Hematocrit 30.3 % (42.0-52.0); Hemoglobin 9.1 g/dL (11.7-16.6); Lymphocytes # 1.3 10^3/uL (0.8-4.8); Lymphocytes % 12.2 %; Mean Corpuscular Hemoglobin 25.3 pg (28.0-34.0); Mean Corpuscular Volume 84.4 fL (80-94); Monocytes # 0.7 10^3/uL (0.2-0.9); Monocytes % 6.2 %; Neutrophils # 8.77 10^3/uL (1.8-7.7); Neutrophils % 80.7 %; Nucleated Red Blood Cells % 0 %; Platelet Count 154 10^3/cmm (130-400); Red Blood Count 3.59 10^6/uL (4.1-5.3); Red Cell Distribution Width 20.9 % (12.1-15.1); White Blood Count 10.9 10^3/uL (4.0-10.0)
[2020-12-31 14:33] LABS: Slide Review Slide Review Perform
--- NOTE | 2021-01-01 15:41 | ONC FU_ITS ---
Dr. Ramachandran follow up note Patient: Maximino Sandoval Unit #: [id number]: [id number] Dicatated By: Asaf Ramachandran M.D.Date of Visit:Dec 16, 2020 Onc Med Follow-up/Prog Note History of Present Illness: Mr. Maximino Sandoval, is a 55-year-old gentleman with history of T- LGL, on methotrexate/prednisone started on April 27, 2019, ultrasound abdomen done on August 01, 2020 showed spleen size normal. And history of rheumatoid arthritis diagnosed in 2003 now on prednisone, HCQ, methotrexate, Patient underwent EGD on August 14, 2020 for macrocytic anemia and progressive dysphagia, which showed at 35 cm from incisors esophageal thickening have circumferential, friable, easily bleeding lesion biopsy was done which showed moderately poorly differentiated invasive adenocarcinoma, CT scan of chest abdomen pelvis done on 11/11/2020 showed diffuse circumferential distal esophageal/GE junction thickening, few enlarged paraesophageal lymph nodes largest is 1.1 cm, slightly enlarged celiac and quinton hepatic lymph nodes and subcentimeter lung nodules left upper lobe and left lower lobe less than 5 mm. On September 11, [address] PET scan at [facility] which showed metastatic disease above and below diaphragm including multiple abdominal lymph nodes, hepatic lesions, largest is 3.3 x 3.1 cm with hepatic segment 7 SUV 11.1 osseous metastatic disease, lytic lesion centered in C5 vertebral body and left L2 pedicle and in the right fourth rib anterior MRI scan of the C-spine done on October 21, 2020 showed enhancing metastatic lesion C5 vertebral body with surrounding paravertebral soft tissue enhancement. 10 ventral epidural enhancement with mild central canal stenosis and moderate multilevel bony foraminal narrowing worse at C3-7 his labs checked on 09/19/2017 showed white blood count 8.5 hemoglobin 10.2 crit 31.2 MCV 82.8 platelet counts 568,000 and B12 was 462 iron was 11 normal being 65-175 reticulocyte count was 1.1 ferritin was 382.4 normal being 26 to 388, folate was 9.20 reticulocyte count was 1.1 His hemoglobin improved to 11.5 g on 10/26/2017 with discontinue of methotrexate and thrombocytosis also resolved and at that time patient was advised to follow with his PMD and to come to clinic on as-needed basis. 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 Patient was sent to hematology clinic for evaluation for neutropenia. As per patient xeljanz was discontinued month ago e.g. prior to this lab workup. Guardant 360 showed tumor mutational burden 14.35 e.g. more than 10, pembrolizumab is indicated, and other abnormality including CESARIO W266, CESARIO [id number], CESARIO splice site indel, FDA approved therapy include olaparib, niraparib, rucaparib, talazoparib can be considered. Skin biopsy from left subaxillary area done on 02/05/2019 showed chronic inflammation now being treated with topical agent per Dr. Haley c d reactor operator in [facility]. 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 A reactive process cannot be entirely excluded Started on weekly carboplatin/Taxol on December 04, 2020 Came for follow-up, complaining of generalized weakness and fatigue, off and on mild nausea, patient said he tries V8 juice and sometimes pineapple/orange juice, tolerating liquid or semisolid food in good, tolerated first cycle of weekly carboplatin/Taxol well. Patient still taking oral iron and also take methotrexate for arthritis patient also complaining of mild redness around G-tube and now scheduled see Dr. Banks for evaluation and is using topical antibiotics denies any pus from G-tube site Medications: Aspirin 1 (81 mg) Tablet Oral daily, buPROPion HCl ER (SR) 1 (150 mg) Tablet SR 12 HR Oral daily, clonazePAM 1 (2 mg) Tablet Oral daily, Cymbalta 1 Capsule (of 100 mg) Capsule Delayed Release Particles Oral daily, Esomeprazole Magnesium 1 (40 mg) Capsule Delayed Release Oral daily, Ferrous Gluconate 1 (324 (37.5 fe) mg) Tablet Oral b.i.d., Ferrous Sulfate 1 (325 (65 fe) mg) Tablet Oral daily, Fish Oil 1 (1200 mg) Capsule Oral daily, Folic Acid 1 (1 mg) Tablet Oral daily, Gabapentin 1 (800 mg) Tablet Oral t.i.d., glipiZIDE ER 1 (5 mg) Tablet SR 24 HR Oral daily, Hydroxychloroquine Sulfate 2 Tablet (of 200 mg) Oral daily, Irbesartan 1 (75 mg) Tablet Oral daily, Lovastatin 1 (20 mg) Tablet Oral daily, Magnesium Oxide -Mg Supplement 1 (250 mg) Tablet Oral b.i.d., Methotrexate (2.5 mg) Tablet Oral Take as Directed, Nitroglycerin 1 (0.4 mg) Tablet, sublingual Sublingual PRN, OxyCODONE HCl 1 - 2 (30 mg) Tablet Oral q 4 hours PRN, Pantoprazole Sodium 1 (40 mg) Tablet, enteric coated Oral daily, PARoxetine HCl 1 (20 mg) Tablet Oral b.i.d., PredniSONE 1 Tablet (of 5 mg) Oral daily, Sildenafil Citrate 1 (25 mg) Tablet Oral PRN, tiZANidine HCl 1 Capsule (of 4 mg) Tablet Oral q 12 hours PRN Allergies: Lisinopril Review of Systems: Review of Systems is not available for this patient. Vital Signs: Performed on Dec 16, 2020 13:22 Height - 72.00 in Weight - 192.6 lbs (LOW) BSA - 2.10 sq.m BMI - 26.12 Temperature - 97.8 F (LOW) Pulse - 61 /min Respiration - 18 /min BP - 92/54 mm(hg) O2 Sat - 98 % Pain - 5 Fatigue - 10 Performance Status: 1 - No physically strenuous activity, but ambulatory and able to carry out light or sedentary work (e.g. office work, light house work). (ECOG) Physical Examination: ENMT - No mouth sores, no thrush, no jaundice, Respiratory - Poor air entry otherwise clear, Cardiovascular - Regular rate and rhythm of heart, Abdomen - Soft, bowel sounds present, Extremities - No visible edema. Lab/Imaging: Test performed on Dec 11, 2020 11:00 Sodium 130 mmol/L Potassium 4.6 mmol/L Chloride 95 mmol/L CO2 24 mmol/L Anion Gap 15.6 BUN 26 mg/dL Creatinine 0.9 mg/dL Cr Clearance (Est) 116.2000 mL/min eGFR 87.0 mL/min Glucose 247 mg/dL Osmolality - Calculated 283 mOsm/kg Calcium 8.6 mg/dL Protein, Total 6.9 g/dL Albumin 3.7 g/dL Globulin 3.2 g/dL Bilirubin, Total 0.3 mg/dL ALT (SGPT) 23 U/L AST (SGOT) 32 U/L Alkaline Phosphatase 147 IU/L WBC 1.3 10 3/uL RBC 3.76 10 6/uL HGB 9.1 g/dL HCT 29.6 % MCV 78.7 fL MCH 24.2 pg MCHC 30.7 g/dL RDW 17.7 % Platelet Count 365 10 3/cmm MPV 9.2 fL Neutrophils 1.03 10 3/uL Lymphocytes 0.2 10 3/uL Monocytes 0.1 10 3/uL Eosinophils 0.0 10 3/uL Basophils 0.0 10 3/uL Neutrophil % 77.5 % Lymphocyte % 16.5 % Monocyte % 4.5 % Eosinophil % 0.0 % Basophils % 0.0 % NRBC % 0 % Impression: 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 CT PET scan done on September 11, 2020 at [place] shows mild thickening of the distal thoracic esophagus extending into gastric cardia with FDG uptake 21.2, Multiple hypermetabolic hepatic lesions largest is 3.3 x 3.1 cm in hepatic segment 7 SUV 11.1 Status post radiation therapy to C5 which he completed on November 17, 2020 Starting on weekly carboplatin/Taxol on December 04, 2020 Hypermetabolic lymphadenopathy within the gastrohepatic and retroperitoneal station, and para-aortic. There are hypermetabolic lytic lesion centered in C5 vertebral body, and left L2 pedicle, and anterior right fourth rib. 2 . 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 A reactive process cannot be entirely excluded. 3. Rheumatoid arthritis diagnosed in 2003 on prednisone, HCQ, methotrexate, Methotrexate discontinued on December 16, 2020 due to progressive leukopenia while on chemotherapy Bilateral subaxillary skin lesion questionable etiology, was referred to Dr. haley, c d reactor operator in [facility], patient underwent skin biopsy from left subaxillary area, as per patient it shows chronic inflammation and now being treated with topical agent Plan: Discussed with patient regarding his labs white blood count 2.2 hemoglobin 8.4 hematocrit 27.8 platelets 303,000 ANC 1930 CMP within normal limit except sodium 132 Clinically, patient is doing reasonably well, now with progressive/persistent leukopenia probably due to chemotherapy as well as methotrexate which she is taking for rheumatoid arthritis, patient was advised to discontinue methotrexate, patient was scheduled for as next weekly dose of carboplatin Taxol on December 12, 2020 but because of progressive leukopenia/neutropenia his chemotherapy was held and blood count was repeated today did not show full recovery, thus we will hold his chemotherapy and repeat CBC on if it shows recovery, will consider next dose of carboplatin/Taxol on Tuesday in the meantime request insurance for Neupogen daily x3 after each weekly dose of carboplatin Taxol to maintain chemotherapy schedule and to prevent chemotherapy-induced neutropenia/leukopenia As far as anemia is concerned, appears multifactorial, patient is on oral iron but without much improvement, will repeat his iron studies if it shows persistent iron deficiency, will consider parenteral iron Patient was also advised to discontinue methotrexate to minimize risk of hemotherapy induced leukopenia or generalized bone marrow suppression. In the meantime patient was advised to maintain good hydration if needed, will consider IV hydration on as-needed basis. We will continue to monitor his hemoglobin if there is a further drop may consider blood transfusion. As for his G-tube site inflammation is concerned, patient will see Dr. Banks for evaluation. As for the mild nausea is concerned, patient was advised to avoid acid-containing food especially tomato juice or orange/pineapple juice and/or spicy foods. And use antiemetic as needed. Patient return to clinic on with CBC if it shows recovery, chemotherapy with weekly carbo/Taxol on Tuesday Signed By: Asaf Ramachandran M.D. <<Signature on File>>
--- NOTE | 2021-01-07 01:48 | ONC FU_ITS ---
[facility] Patient Note Patient: Maximino Sandoval Unit #: [id number]: [id number] Dictated By: Salome BurkDate of Visit: Dec 29, 2020 Onc MED Follow-Up/Prog Note Chief Complaint: Anemia/thrombocytosis History of Present Illness: Mr. 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 Mr. Sandoval was started on methotrexate and prednisone on April 27, 2024 for the T???LGL. He had abdominal ultrasound performed on August 01, 2020 which reported a normal spleen size. He has been treated for the RA for some time with prednisone Plaquenil and methotrexate. He presented to his PCP with new onset dysphagia and anemia. He did have a EGD on 08/14/2020 which reported at 35 cm from the incisors esophageal thickening, friable, and easily bleeding. The EGD pathology showed moderately poorly differentiated invasive adenocarcinoma. A CT chest abdomen pelvis was obtained on 08/14/2020 which reported diffuse circumferential distal esophageal/GE J thickening, few enlarged paraesophageal lymph nodes largest 1.1 cm, slightly enlarged celiac and quinton hepatis lymph nodes sizes 1.1 to 1.2 cm and a subcentimeter lung nodule left upper lobe and left lower lobe less than 5 mm. He had staging PET/CT on 09/11/2020 which reported marked thickening of the distal thoracic esophagus extending into the gastric cardia with marked FDG uptake at 221.2 SUV. There were multiple hypermetabolic hepatic lesions. The largest of which has a vague hypoattenuating CT correlate; this was difficult to measure but is approximately 3.3 x 3.1 cm with an hepatic segment 7/caudate bridge (SUV max of 11.1). There was hypermetabolic lymphadenopathy within the gastric hepatic and retroperitoneal stations for example 1.3 cm gastric hepatic node SUV 3.8 and an 8 mm retrocaval node maximum SUV 4.8. There was an 8 mm para-aortic node with a maximal SUV of 3.1. There were hypermetabolic lesions centered in the C5 vertebral body and the left L2 pedicle. There was additional hypermetabolic focus in the anterior right fourth rib but did not have definite CT correlate. The SUV was 5.78. Predominately symmetric FDG uptake about the hips within the bilateral gluteal muscles, bilateral iliopsoas and left tensor fossa lilliam muscles. MRI scan of the C-spine done on October 21, 2020 showed enhancing metastatic lesion at the C5 vertebral body with surrounding paravertebral soft tissue enhancement. 10 ventral epidural enhancement with mild central canal stenosis and moderate multilevel bony foraminal narrowing worse at C3-7 was seen at [facility] by Jerri Layne???ANGELIA flores and Dr. Valdo Osorio on 09/08/2020. Their notes indicate they discussed with Mr. Sandoval that he appears to have locally advanced disease with lymph node involvement. Further recommendation was treatment with chemotherapy carboplatin paclitaxel in combination with radiation. Depending on treatment response he may require surgery. If he is found to have stage IV disease by his staging PET/CT imaging would be systemic chemotherapy alone. He was recommended to have port placement at that time as well. In regards to his LGL he was to continue to follow with and continue on low-dose prednisone and methotrexate as he had adequate control since April 2019. He is to continue following with rheumatology for his RA and may continue using methotrexate, prednisone and hydroxychloroquine. Mr. Sandoval was referred back to Dr. Ramachandran and had follow-up on 09/19/2020. 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 He was also having progressive dysphagia at that time. Dr. Ramachandran recommended obtaining guardant 360 testing and placement of Port-A-Cath. He also recommended that he go and start biphosphonate to prevent skeletal related complications. Mr. Sandoval was also referred for MRI scanning of the C-spine with attention to C5 as he was having more pain. Mr. Sandoval was referred to Dr. Banks for placement of a PowerPort. He had placement of the port into the left subclavian vein which on September 29, 2020. He was then seen again by Dr. Ramachandran on 10/24/2020 and the Guardiant 360 results were reviewed. His HER-2/stephanie results were negative, MSI/MMR intact with alteration at CESARIO gene thus he may be responsive to PARP inhibitors. (Guardant 360 showed tumor mutational burden 14.35 e.g. more than 10, pembrolizumab is indicated, and other abnormality including CESARIO W266, CESARIO [id number], CESARIO splice site indel, FDA approved therapy include olaparib, niraparib, rucaparib, talazoparib can be considered). He was having moderate to severe distress due to left anterior chest wall pain and was referred to the emergency room for further evaluation. He was also referred for PEG tube placement. He had PEG tube placement per Dr. Banks on 11/12/2020. He had confirmation of C5 involvement per MRI of the scan of the C-spine although he was not symptomatic. He was referred to Dr. Connell in [facility] for consideration of palliative radiotherapy. He did see Dr. Connell on 10/28/2020. At that time he recommended palliative radiotherapy to the C5 vertebral body. Mr. Sandoval completed palliative radiotherapy for C5 involvement of his metastatic esophageal cancer on November 17, 2020. He had a prescribed dose of 30 Edmonds which delivered in 10 fractions over 15 elapsed days. PMH: Skin biopsy from left subaxillary area done on 02/05/2019 showed chronic inflammation now being treated with topical agent per Dr. Haley rn supplemental in [facility]. Started on weekly carboplatin/Taxol on December 04, 2020 INTERIM HISTORY: Mr. Sandoval was started on his first cycle of carboplatin paclitaxel on December 04, 2020. He was able to complete day 8 (reidentified as cycle 2 day 1 due to the interim between day 1 & 8) on December 22, 2020. He did have chemotherapy-induced neutropenia on day 8 with an ANC of 1030. He did receive growth factor support with Neupogen. He required growth factor support with Neupogen again and his counts have held well. He is here today for follow-up. He is due for consideration of cycle 2-day 8 chemotherapy. He states overall he feels he is doing well. He has been utilizing his PEG tube and tolerating this well. He is using Ensure. He states he did have an episode where the clamp came undone at night and the gastric contents were leaking on the skin and cause irritation. That is now healing well. He denies any fever or chills. He denies any shortness of breath orthopnea. He denies any mouth sores, sore throat or difficulty swallowing. He states that his energy is fair although he tires easily. He has had no hemoptysis. He denies any vomiting or diarrhea. He denies any bladder changes. He has had some tingling in his fingers and toes but states it generally resolves prior to his next round of chemotherapy. He denies any gastritis symptoms at this time. His ECOG is 1. Past Medical History: Yossi inhibitor intolerance Anemia Arthritis Fuller's esophagus Coronary artery disease Diverticulosis Hyperlipidemia Hypertension Rheumatoid arthritis Type II diabetes T-LGL (Tcell large granular leukemia) in 2019 Past Surgical History: Coronary angioplasty x2 with stent PEG tube placement per Dr. Banks in [address] Banks in 2020 Covid vaccine #2 moderna in 2020 Covid vaccine #1 moderna in 2020 Colonoscopy in 2018 Allergies: Lisinopril Medications: Aspirin 1 (81 mg) Tablet Oral daily buPROPion HCl ER (SR) 1 (150 mg) Tablet SR 12 HR Oral daily clonazePAM 1 (2 mg) Tablet Oral daily Cymbalta 1 Capsule (of 100 mg) Capsule Delayed Release Particles Oral daily Esomeprazole Magnesium 1 (40 mg) Capsule Delayed Release Oral daily Ferrous Gluconate 1 (324 (37.5 fe) mg) Tablet Oral b.i.d. Ferrous Sulfate 1 (325 (65 fe) mg) Tablet Oral daily Fish Oil 1 (1200 mg) Capsule Oral daily Folic Acid 1 (1 mg) Tablet Oral daily Gabapentin 1 (800 mg) Tablet Oral t.i.d. glipiZIDE ER 1 (5 mg) Tablet SR 24 HR Oral daily Hydroxychloroquine Sulfate 2 Tablet (of 200 mg) Oral daily Irbesartan 1 (75 mg) Tablet Oral daily Lovastatin 1 (20 mg) Tablet Oral daily Magnesium Oxide -Mg Supplement 1 (250 mg) Tablet Oral b.i.d. Methotrexate (2.5 mg) Tablet Oral Take as Directed Nitroglycerin 1 (0.4 mg) Tablet, sublingual Sublingual PRN OxyCODONE HCl 1 - 2 (30 mg) Tablet Oral q 4 hours PRN Pantoprazole Sodium 1 (40 mg) Tablet, enteric coated Oral daily PARoxetine HCl 1 (20 mg) Tablet Oral b.i.d. PredniSONE 1 Tablet (of 5 mg) Oral daily Sildenafil Citrate 1 (25 mg) Tablet Oral PRN tiZANidine HCl 1 Capsule (of 4 mg) Tablet Oral q 12 hours PRN Family History: Mr. Sandoval's mother is alive. Mr. Sandoval's father is . Mr. Sandoval has 1 brother who is alive. He has 3 sisters: 3 alive. patient has a family history of colon and skin cancer. Social History: Mr. Sandoval is and he is a disabled. He is a daily smoker who has smoked 0.5 packs/day for 36 years. He has no history of drinking. He has indicated exposure to the following products: marijuana. Mr. Sandoval reports the following support systems: lives with spouse, significant other, family, or friends, lives in own house, supportive family/friends willing to assist with needs, and adequate transportation available for expected visits. His diet consists of regular meals. He indicates his activity level as: daily activities. Has been prescribed medical marijuana for pain relief. Review Of Symptoms: <See Above> Vital Signs: Performed on Dec 29, 2020 09:33 Height - 72.00 in Weight - 187 lbs (LOW) BSA - 2.07 sq.m BMI - 25.36 Temperature - 97.8 F (LOW) Pulse - 88 /min Respiration - 18 /min BP - 90/50 mm(hg) O2 Sat - 97 % Pain - 4 Fatigue - 10,1 - No physically strenuous activity, but ambulatory and able to carry out light or sedentary work (e.g. office work, light house work). (ECOG) Physical Examination: Constitutional Alert, oriented, no acute distress. Skin pink, warm and dry. Head Normocephalic; atraumatic. Eyes Conjunctivae and sclerae are clear and without icterus. Pupils are reactive and equal. ENMT No oral exudates, ulcers, masses, thrush or mucositis. Oropharynx clear. Tongue normal. Neck Supple without masses or thyromegaly. No jugular venous distension. Hematologic/Lymphatic No petechiae or purpura. No tender or palpable lymph nodes in the cervical or supraclavicular areas. Respiratory Lungs are clear to auscultation without rhonchi or wheezing. Cardiovascular Regular rate and rhythm of heart without murmurs,clicks, gallops or rubs. Chest Chest is symmetric without chest wall deformities. Port site is unremarkable. Abdomen Non-tender, non-distended, no masses or ascites. Good bowel sounds noted in all quads. No guarding or rebound tenderness. No pulsatile masses. Picture insertion site is unremarkable. There is slight skin irritation but noted to be healing well. There is no current exudate Back/Spine Non-tender to palpation. Extremities No visible deformities, no cyanosis, clubbing or edema. Musculoskeletal No tenderness or swelling, normal range of motion without obvious weakness. Integumentary No rashes or lesions. Neurologic No sensory or motor deficits, normal cerebellar function, normal gait. Psychiatric Alert and oriented times three. Coherent speech. Verbalizes understanding of our discussions today. Laboratory:Test performed on Dec 29, 2020 15:05 Creatinine 0.7 mg/dL Cr Clearance (Est) 149.40 mL/min Test performed on Dec 29, 2020 08:10 Sodium 137 mmol/L Potassium 4.8 mmol/L Chloride 102 mmol/L CO2 25 mmol/L Anion Gap 14.8 BUN 24 mg/dL eGFR 116.2 mL/min Glucose 231 mg/dL Osmolality - Calculated 295 mOsm/kg Calcium 9.0 mg/dL Protein, Total 6.3 g/dL Albumin 3.5 g/dL Globulin 2.8 g/dL Bilirubin, Total 0.4 mg/dL ALT (SGPT) 26 U/L AST (SGOT) 33 U/L Alkaline Phosphatase 135 IU/L WBC 1.6 10 3/uL RBC 4.24 10 6/uL HGB 11.0 g/dL HCT 36.1 % MCV 85.1 fL MCH 25.9 pg MCHC 30.5 g/dL RDW 21.0 % Platelet Count 178 10 3/cmm MPV 9.2 fL Neutrophils 1.33 10 3/uL Lymphocytes 0.2 10 3/uL Monocytes 0.1 10 3/uL Eosinophils 0.0 10 3/uL Basophils 0.0 10 3/uL Neutrophil % 81.1 % Lymphocyte % 12.8 % Monocyte % 4.9 % Eosinophil % 0.0 % Basophils % 0.6 % NRBC % 0 % Impression: 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 CT PET scan done on September 11, 2020 at [facility] shows mild thickening of the distal thoracic esophagus extending into gastric cardia with FDG uptake 21.2, Multiple hypermetabolic hepatic lesions largest is 3.3 x 3.1 cm in hepatic segment 7 SUV 11.1 Status post radiation therapy to C5 which he completed on November 17, 2020 Starting on weekly carboplatin/Taxol on December 04, 2020 Hypermetabolic lymphadenopathy within the gastrohepatic and retroperitoneal station, and para-aortic. There are hypermetabolic lytic lesion centered in C5 vertebral body, and left L2 pedicle, and anterior right fourth rib. 2 . 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 A reactive process cannot be entirely excluded. 3. Rheumatoid arthritis diagnosed in 2003 on prednisone, HCQ, methotrexate, Methotrexate discontinued on December 16, 2020 due to progressive leukopenia while on chemotherapy Bilateral subaxillary skin lesion questionable etiology, was referred to Dr. haley, rn supplemental in [facility], patient underwent skin biopsy from left subaxillary area, as per patient it shows chronic inflammation and now being treated with topical agent Plan/Problems Addressed at this Visit: 1. Hold planned day 8 treatment today due to an ANC of 1330. B. He will proceed with filgrastim 480 mcg daily for 2 days and reassess his CBC on Tuesday. C. His blood counts from today were reviewed in detail and discussed with . Mrs. Sandoval a copy was given to them. WBC 1.6, hemoglobin is 11, platelets 178,000, ANC is 1330. Potassium 3.8 random glucose 231 (steroid-induced steroid premed compliance confirmed) creatinine 0.7 and LFTs are normal. D. He received 2 units of packed red blood cells on 12/25/2020. His hemoglobin is 11 today. Plan for follow-up A. We will check his blood counts on Tuesday to determine if he needs further growth factor support or if we can proceed with chemotherapy with him probably on . He will need to take steroid premedication. B. If we are unable to treat him due to his blood counts been consistently low we will plan to see him back in 1 week with CBC CMP and further treatment at that time if counts allow. C. If we are able to treat him this week. We will plan to add Neulasta if approved on day 9. We will have him seen back 2 weeks after the infusion for consideration of cycle 3-day 1. He has missed cycle 1 day 8 due to neutropenia. Thus far we have not been able to treat him on a day 1 and 8 schedule due to his blood counts. He responds well to the Zarxio but it is temporary. D. He continues to utilize Ensure for his feeding tube. His feeding tube site does have some skin irritation but he states is because the clamp has been open at night leaking stomach contents on my abdomen and the skin is really irritated. He states he is using Desitin on it and it is noted that is healing well. He has discussed the clamp and hooking and leaking at night with the surgeon's office but states that they cannot give him a new clamp without given the whole new PEG tube. He states he will try some hemostats with that if he can tolerate them being on his abdomen at night. E. His requesting a refill on his pain medication???oxycodone. This will be per Dr. Ramachandran's written authorization. F. Mr. Martinez was instructed to contact us in interim should questions or problems arise. Signed By: Salome Burk-, AOCNP Asaf Ramachandran MD <<Signature on File>>
== END 2020-12-31 23:59 | disposition home or self-care (01) ==
LOC: ONCMED 05:52
PROVIDERS: Internal Medicine Medical Oncology; Nurse Practitioner; PCP Nurse Practitioner; Visit Provider Internal Medicine Hematology & Oncology
DX: Z51.11 Encounter for antineoplastic chemotherapy (principal); C15.5 Malignant neoplasm of lower third of esophagus; C77.8 Secondary and unspecified malignant neoplasm of lymph nodes of multiple regions; C78.7 Secondary malignant neoplasm of liver and intrahepatic bile duct; C79.51 Secondary malignant neoplasm of bone; C78.6 Secondary malignant neoplasm of retroperitoneum and peritoneum; D50.0 Iron deficiency anemia secondary to blood loss (chronic); M06.9 Rheumatoid arthritis, unspecified; Z79.52 Long term (current) use of systemic steroids; Z79.899 Other long term (current) drug therapy
CPT/HCPCS: 36415; 36430; 36591; 80053; 82607; 82728; 83540; 83550; 85025; 86850; 86900; 86920; 96360; 96361; 96367; 96372; 96375; 96413; 96417; 99215; J1100; J1200; J1442; J1453; J1940; J2469; J3490; J7030; J7040; J7050; J9045; J9267; P9016; Q5101

== ENCOUNTER 2021-01-29 05:41 | Outpatient (RCR) | payer MEDICARE, SELFPAY ==
[2021-01-01] MEDS: famotidine 20 mg/2 mL INJ IVP (11:12)
[2021-01-01] MEDS: sodium chloride 0.9% 250 ML 75 ML IV (11:12)
[2021-01-01] MEDS: diphenhydrAMINE 50 mg/mL SDV 1mL 25 MG IV (11:14)
[2021-01-01] MEDS: palonosetron 0.25 mg/5 mL SDV IV (11:18)
[2021-01-01] MEDS: fosaprepitant 150 MG in sodium chloride 0.9% 150 ML 300 MG IV (11:34)
[2021-01-08 09:57] LABS: Basophils % 0.4 %; Hematocrit 31.2 % (42.0-52.0); Hemoglobin 9.4 g/dL (11.7-16.6); Lymphocytes # 0.2 10^3/uL (0.8-4.8); Lymphocytes % 4.3 %; Mean Corpuscular HGB Conc 30.1 g/dL (30.0-36.0); Mean Corpuscular Hemoglobin 25.8 pg (28.0-34.0); Mean Corpuscular Volume 85.7 fL (80-94); Mean Platelet Volume 9.2 fL (7.4-10.4); Monocytes # 0.1 10^3/uL (0.2-0.9); Monocytes % 2.6 %; Neutrophils # 4.23 10^3/uL (1.8-7.7); Neutrophils % 91.6 %; Nucleated Red Blood Cells % 0 %; Platelet Count 179 10^3/cmm (130-400); Red Blood Count 3.64 10^6/uL (4.1-5.3); Red Cell Distribution Width 21.6 % (12.1-15.1); White Blood Count 4.6 10^3/uL (4.0-10.0)
[2021-01-08 10:19] LABS: Alanine Aminotransferase 27 U/L (0-41); Albumin Level 3.4 g/dL (3.5-5.2); Alkaline Phosphatase 100 IU/L (40-130); Anion Gap 13.1 (5-19); Aspartate Amino Transferase 26 U/L (0-40); Blood Urea Nitrogen 24 mg/dL (6-20); Calcium 8.1 mg/dL (8.5-10.5); Carbon Dioxide 26 mmol/L (22-29); Chloride 101 mmol/L (98-107); Globulin 2.2 g/dL (1.3-4.6); Glomerular Filtration Rate 138.9 mL/min (90-130); Glucose 186 mg/dL (65-115); Osmolality Calculated 291 mOsm/kg (285-295); Potassium 4.1 mmol/L (3.5-5.1); Sodium 136 mmol/L (136-145); Total Bilirubin 0.3 mg/dL (0.15-1.2); Total Protein 5.6 g/dL (6.6-8.7)
[2021-01-08] MEDS: sodium chloride 0.9% 250 ML 75 ML IV (12:00)
[2021-01-08] MEDS: palonosetron 0.25 mg/5 mL SDV IV (12:00)
[2021-01-08] MEDS: famotidine 20 mg/2 mL INJ IVP (12:01)
[2021-01-08] MEDS: diphenhydrAMINE 50 mg/mL SDV 1mL 25 MG IV (12:02)
[2021-01-08] MEDS: fosaprepitant 150 MG in sodium chloride 0.9% 150 ML 300 MG IV (12:25)
--- NOTE | 2021-01-20 08:31 | ONC FU_ITS ---
Dr. Ramachandran follow up note Patient: Maximino Sandoval Unit #: [id number]: [id number] Dicatated By: Asaf Ramachandran M.D.Date of Visit:Jan 08, 2021 Onc Med Follow-up/Prog Note History of Present Illness: Mr. 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 Mr. Sandoval was started on methotrexate and prednisone on April 27, 2024 for the T???LGL. He had abdominal ultrasound performed on August 01, 2020 which reported a normal spleen size. He has been treated for the RA for some time with prednisone Plaquenil and methotrexate. He presented to his PCP with new onset dysphagia and anemia. He did have a EGD on 08/14/2020 which reported at 35 cm from the incisors esophageal thickening, friable, and easily bleeding. The EGD pathology showed moderately poorly differentiated invasive adenocarcinoma. A CT chest abdomen pelvis was obtained on 08/14/2020 which reported diffuse circumferential distal esophageal/GE J thickening, few enlarged paraesophageal lymph nodes largest 1.1 cm, slightly enlarged celiac and quinton hepatis lymph nodes sizes 1.1 to 1.2 cm and a subcentimeter lung nodule left upper lobe and left lower lobe less than 5 mm. He had staging PET/CT on 09/11/2020 which reported marked thickening of the distal thoracic esophagus extending into the gastric cardia with marked FDG uptake at 221.2 SUV. There were multiple hypermetabolic hepatic lesions. The largest of which has a vague hypoattenuating CT correlate; this was difficult to measure but is approximately 3.3 x 3.1 cm with an hepatic segment 7/caudate bridge (SUV max of 11.1). There was hypermetabolic lymphadenopathy within the gastric hepatic and retroperitoneal stations for example 1.3 cm gastric hepatic node SUV 3.8 and an 8 mm retrocaval node maximum SUV 4.8. There was an 8 mm para-aortic node with a maximal SUV of 3.1. There were hypermetabolic lesions centered in the C5 vertebral body and the left L2 pedicle. There was additional hypermetabolic focus in the anterior right fourth rib but did not have definite CT correlate. The SUV was 5.78. Predominately symmetric FDG uptake about the hips within the bilateral gluteal muscles, bilateral iliopsoas and left tensor fossa lilliam muscles. MRI scan of the C-spine done on October 21, 2020 showed enhancing metastatic lesion at the C5 vertebral body with surrounding paravertebral soft tissue enhancement. 10 ventral epidural enhancement with mild central canal stenosis and moderate multilevel bony foraminal narrowing worse at C3-7 was seen at [facility] by Jerri Layne???ANGELIA flores and Dr. Valdo Osorio on 09/08/2020. Their notes indicate they discussed with Mr. Sandoval that he appears to have locally advanced disease with lymph node involvement. Further recommendation was treatment with chemotherapy carboplatin paclitaxel in combination with radiation. Depending on treatment response he may require surgery. If he is found to have stage IV disease by his staging PET/CT imaging would be systemic chemotherapy alone. He was recommended to have port placement at that time as well. In regards to his LGL he was to continue to follow with and continue on low-dose prednisone and methotrexate as he had adequate control since April 2019. He is to continue following with rheumatology for his RA and may continue using methotrexate, prednisone and hydroxychloroquine. Mr. Sandoval was referred back to Dr. Ramachandran and had follow-up on 09/19/2020. 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 He was also having progressive dysphagia at that time. Dr. Ramachandran recommended obtaining guardant 360 testing and placement of Port-A-Cath. He also recommended that he go and start biphosphonate to prevent skeletal related complications. Mr. Sandoval was also referred for MRI scanning of the C-spine with attention to C5 as he was having more pain. Mr. Sandoval was referred to Dr. Banks for placement of a PowerPort. He had placement of the port into the left subclavian vein which on September 29, 2020. He was then seen again by Dr. Ramachandran on 10/24/2020 and the Guardiant 360 results were reviewed. His HER-2/stephanie results were negative, MSI/MMR intact with alteration at CESARIO gene thus he may be responsive to PARP inhibitors. (Guardant 360 showed tumor mutational burden 14.35 e.g. more than 10, pembrolizumab is indicated, and other abnormality including CESARIO W266, CESARIO P7612L, CESARIO splice site indel, FDA approved therapy include olaparib, niraparib, rucaparib, talazoparib can be considered). He was having moderate to severe distress due to left anterior chest wall pain and was referred to the emergency room for further evaluation. He was also referred for PEG tube placement. He had PEG tube placement per Dr. Banks on 11/12/2020. He had confirmation of C5 involvement per MRI of the scan of the C-spine although he was not symptomatic. He was referred to Dr. Connell in [facility] for consideration of palliative radiotherapy. He did see Dr. Connell on 10/28/2020. At that time he recommended palliative radiotherapy to the C5 vertebral body. Mr. Sandoval completed palliative radiotherapy for C5 involvement of his metastatic esophageal cancer on November 17, 2020. He had a prescribed dose of 30 Ed[place]s which delivered in 10 fractions over 15 elapsed days. PMH: Skin biopsy from left subaxillary area done on 02/05/2019 showed chronic inflammation now being treated with topical agent per Dr. Haley manager service desk in [facility]. Started on weekly carboplatin/Taxol on December 04, 2020 Mr. Sandoval was started on his first cycle of carboplatin paclitaxel on December 04, 2020. He was able to complete day 8 (reidentified as cycle 2 day 1 due to the interim between day 1 & 8) on December 22, 2020. He did have chemotherapy-induced neutropenia on day 8 with an ANC of 1030. He did receive growth factor support with Neupogen. He required growth factor support with Neupogen again and his counts have held well. Came for follow-up, denies any specific complaints except persistent dysphagia but somewhat better but no fever chills, no nausea or vomiting, no diarrhea or constipation, no hemoptysis or hematemesis, tolerating palliative therapy with carboplatin/Taxol well otherwise Medications: Aspirin 1 (81 mg) Tablet Oral daily, buPROPion HCl ER (SR) 1 (150 mg) Tablet SR 12 HR Oral daily, clonazePAM 1 (2 mg) Tablet Oral daily, Cymbalta 1 Capsule (of 100 mg) Capsule Delayed Release Particles Oral daily, Esomeprazole Magnesium 1 (40 mg) Capsule Delayed Release Oral daily, Ferrous Gluconate 1 (324 (37.5 fe) mg) Tablet Oral b.i.d., Ferrous Sulfate 1 (325 (65 fe) mg) Tablet Oral daily, Fish Oil 1 (1200 mg) Capsule Oral daily, Folic Acid 1 (1 mg) Tablet Oral daily, Gabapentin 1 (800 mg) Tablet Oral t.i.d., glipiZIDE ER 1 (5 mg) Tablet SR 24 HR Oral daily, Hydroxychloroquine Sulfate 2 Tablet (of 200 mg) Oral daily, Irbesartan 1 (75 mg) Tablet Oral daily, Lovastatin 1 (20 mg) Tablet Oral daily, Magnesium Oxide -Mg Supplement 1 (250 mg) Tablet Oral b.i.d., Methotrexate (2.5 mg) Tablet Oral Take as Directed, Nitroglycerin 1 (0.4 mg) Tablet, sublingual Sublingual PRN, OxyCODONE HCl 1 - 2 (30 mg) Tablet Oral q 4 hours PRN, Pantoprazole Sodium 1 (40 mg) Tablet, enteric coated Oral daily, PARoxetine HCl 1 (20 mg) Tablet Oral b.i.d., PredniSONE 1 Tablet (of 5 mg) Oral daily, Sildenafil Citrate 1 (25 mg) Tablet Oral PRN, tiZANidine HCl 1 Capsule (of 4 mg) Tablet Oral q 12 hours PRN Allergies: Lisinopril Review of Systems: Review of Systems is not available for this patient. Vital Signs: Performed on Jan 08, 2021 11:28 Height - 72.00 in Weight - 188.6 lbs (HIGH) BSA - 2.08 sq.m BMI - 25.58 Temperature - 97.6 F (LOW) Pulse - 67 /min Respiration - 18 /min BP - 100/61 mm(hg) O2 Sat - 99 % Pain - 0 Fatigue - 5 Performance Status: 1 - No physically strenuous activity, but ambulatory and able to carry out light or sedentary work (e.g. office work, light house work). (ECOG) Physical Examination: ENMT - Sinuses are nontender. No oral exudates, ulcers, masses, thrush or mucositis. Oropharynx clear. Tongue normal, Respiratory - Lungs are clear to auscultation, Cardiovascular - Regular rate and rhythm of heart, Abdomen - Soft, bowel sounds present, Extremities - No visible edema. Lab/Imaging: Test performed on Jan 08, 2021 09:34 Sodium 136 mmol/L Potassium 4.1 mmol/L Chloride 101 mmol/L CO2 26 mmol/L Anion Gap 13.1 BUN 24 mg/dL Creatinine 0.6 mg/dL Cr Clearance (Est) 174.3000 mL/min eGFR 138.9 mL/min Glucose 186 mg/dL Osmolality - Calculated 291 mOsm/kg Calcium 8.1 mg/dL Protein, Total 5.6 g/dL Albumin 3.4 g/dL Globulin 2.2 g/dL Bilirubin, Total 0.3 mg/dL ALT (SGPT) 27 U/L AST (SGOT) 26 U/L Alkaline Phosphatase 100 IU/L WBC 4.6 10 3/uL RBC 3.64 10 6/uL HGB 9.4 g/dL HCT 31.2 % MCV 85.7 fL MCH 25.8 pg MCHC 30.1 g/dL RDW 21.6 % Platelet Count 179 10 3/cmm MPV 9.2 fL Neutrophils 4.23 10 3/uL Lymphocytes 0.2 10 3/uL Monocytes 0.1 10 3/uL Eosinophils 0.0 10 3/uL Basophils 0.0 10 3/uL Neutrophil % 91.6 % Lymphocyte % 4.3 % Monocyte % 2.6 % Eosinophil % 0.0 % Basophils % 0.4 % NRBC % 0 % Impression: 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 CT PET scan done on September 11, 2020 at [place] shows mild thickening of the distal thoracic esophagus extending into gastric cardia with FDG uptake 21.2, Multiple hypermetabolic hepatic lesions largest is 3.3 x 3.1 cm in hepatic segment 7 SUV 11.1 Status post radiation therapy to C5 which he completed on November 17, 2020 Starting on weekly carboplatin/Taxol on December 04, 2020 Hypermetabolic lymphadenopathy within the gastrohepatic and retroperitoneal station, and para-aortic. There are hypermetabolic lytic lesion centered in C5 vertebral body, and left L2 pedicle, and anterior right fourth rib. 2 . 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 A reactive process cannot be entirely excluded. 3. Rheumatoid arthritis diagnosed in 2003 on prednisone, HCQ, methotrexate, Methotrexate discontinued on December 16, 2020 due to progressive leukopenia while on chemotherapy Bilateral subaxillary skin lesion questionable etiology, was referred to Dr. haley, manager service desk in [facility], patient underwent skin biopsy from left subaxillary area, as per patient it shows chronic inflammation and now being treated with topical agent Plan: Discussed with patient regarding his labs white blood count 4.6 hemoglobin 9.4 compared to 9.1 previously hematocrit 31.2 platelets 179,000 CMP within normal limits Clinically, patient is doing well with no new signs symptoms, tolerating palliative therapy with weekly carboplatin/Taxol well, will proceed with day 8 weekly carbo/Taxol today and then he will return to clinic in 2 weeks with CBC CMP and will consider EGD and CT PET scan after next cycle to assess disease status. Signed By: Asaf Ramachandran M.D. <<Signature on File>>
[2021-01-22 09:12] LABS: Basophils % 0.4 %; Hematocrit 30.5 % (42.0-52.0); Hemoglobin 9.3 g/dL (11.7-16.6); Lymphocytes # 0.2 10^3/uL (0.8-4.8); Lymphocytes % 4.6 %; Mean Corpuscular HGB Conc 30.5 g/dL (30.0-36.0); Mean Corpuscular Hemoglobin 26.6 pg (28.0-34.0); Mean Corpuscular Volume 87.1 fL (80-94); Mean Platelet Volume 8.6 fL (7.4-10.4); Monocytes # 0.1 10^3/uL (0.2-0.9); Monocytes % 1.4 %; Neutrophils # 4.81 10^3/uL (1.8-7.7); Nucleated Red Blood Cells % 0 %; Platelet Count 226 10^3/cmm (130-400); Red Cell Distribution Width 22.5 % (12.1-15.1); White Blood Count 5.2 10^3/uL (4.0-10.0)
[2021-01-22 09:53] LABS: Alanine Aminotransferase 26 U/L (0-41); Albumin Level 3.4 g/dL (3.5-5.2); Alkaline Phosphatase 109 IU/L (40-130); Anion Gap 16.3 (5-19); Aspartate Amino Transferase 22 U/L (0-40); Blood Urea Nitrogen 21 mg/dL (6-20); Calcium 8.5 mg/dL (8.5-10.5); Carbon Dioxide 24 mmol/L (22-29); Chloride 101 mmol/L (98-107); Globulin 2.8 g/dL (1.3-4.6); Glomerular Filtration Rate 116.2 mL/min (90-130); Glucose 193 mg/dL (65-115); Osmolality Calculated 292 mOsm/kg (285-295); Potassium 4.3 mmol/L (3.5-5.1); Sodium 137 mmol/L (136-145); Total Bilirubin 0.2 mg/dL (0.15-1.2); Total Protein 6.2 g/dL (6.6-8.7)
[2021-01-22] MEDS: sodium chloride 0.9% 250 ML 75 ML IV (11:36)
[2021-01-22] MEDS: palonosetron 0.25 mg/5 mL SDV IVP (11:36)
[2021-01-22] MEDS: diphenhydrAMINE 50 mg/mL SDV 1mL 25 MG IVP (11:37)
[2021-01-22] MEDS: famotidine 20 mg/2 mL INJ IVP (11:37)
[2021-01-22] MEDS: fosaprepitant 150 MG in sodium chloride 0.9% 150 ML 300 MG IV (11:58)
--- NOTE | 2021-01-22 14:13 | ONC FU_ITS ---
Dr. Ramachandran follow up note Patient: Maximino Sandoval Unit #: [id number]: [id number] Dicatated By: Asaf Ramachandran M.D.Date of Visit:Jan 22, 2021 Onc Med Follow-up/Prog Note History of Present Illness: Mr. 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 Mr. Sandoval was started on methotrexate and prednisone on April 27, 2024 for the T???LGL. He had abdominal ultrasound performed on August 01, 2020 which reported a normal spleen size. He has been treated for the RA for some time with prednisone Plaquenil and methotrexate. He presented to his PCP with new onset dysphagia and anemia. He did have a EGD on 08/14/2020 which reported at 35 cm from the incisors esophageal thickening, friable, and easily bleeding. The EGD pathology showed moderately poorly differentiated invasive adenocarcinoma. A CT chest abdomen pelvis was obtained on 08/14/2020 which reported diffuse circumferential distal esophageal/GE J thickening, few enlarged paraesophageal lymph nodes largest 1.1 cm, slightly enlarged celiac and quinton hepatis lymph nodes sizes 1.1 to 1.2 cm and a subcentimeter lung nodule left upper lobe and left lower lobe less than 5 mm. He had staging PET/CT on 09/11/2020 which reported marked thickening of the distal thoracic esophagus extending into the gastric cardia with marked FDG uptake at 221.2 SUV. There were multiple hypermetabolic hepatic lesions. The largest of which has a vague hypoattenuating CT correlate; this was difficult to measure but is approximately 3.3 x 3.1 cm with an hepatic segment 7/caudate bridge (SUV max of 11.1). There was hypermetabolic lymphadenopathy within the gastric hepatic and retroperitoneal stations for example 1.3 cm gastric hepatic node SUV 3.8 and an 8 mm retrocaval node maximum SUV 4.8. There was an 8 mm para-aortic node with a maximal SUV of 3.1. There were hypermetabolic lesions centered in the C5 vertebral body and the left L2 pedicle. There was additional hypermetabolic focus in the anterior right fourth rib but did not have definite CT correlate. The SUV was 5.78. Predominately symmetric FDG uptake about the hips within the bilateral gluteal muscles, bilateral iliopsoas and left tensor fossa lilliam muscles. MRI scan of the C-spine done on October 21, 2020 showed enhancing metastatic lesion at the C5 vertebral body with surrounding paravertebral soft tissue enhancement. 10 ventral epidural enhancement with mild central canal stenosis and moderate multilevel bony foraminal narrowing worse at C3-[address] seen [address] [facility] by Jerri Layne???ANGELIA flores and Dr. Valdo Osorio on 09/08/2020. Their notes indicate they discussed with Mr. Sandoval that he appears to have locally advanced disease with lymph node involvement. Further recommendation was treatment with chemotherapy carboplatin paclitaxel in combination with radiation. Depending on treatment response he may require surgery. If he is found to have stage IV disease by his staging PET/CT imaging would be systemic chemotherapy alone. He was recommended to have port placement at that time as well. In regards to his LGL he was to continue to follow with and continue on low-dose prednisone and methotrexate as he had adequate control since April 2019. He is to continue following with rheumatology for his RA and may continue using methotrexate, prednisone and hydroxychloroquine. Mr. Sandoval was referred back to Dr. Ramachandran and had follow-up on 09/19/2020. 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 He was also having progressive dysphagia at that time. Dr. Ramachandran recommended obtaining guardant 360 testing and placement of Port-A-Cath. He also recommended that he go and start biphosphonate to prevent skeletal related complications. Mr. Sandoval was also referred for MRI scanning of the C-spine with attention to C5 as he was having more pain. Mr. Sandoval was referred to Dr. Banks for placement of a PowerPort. He had placement of the port into the left subclavian vein which on September 29, 2020. He was then seen again by Dr. Ramachandran on 10/24/2020 and the Guardiant 360 results were reviewed. His HER-2/stephanie results were negative, MSI/MMR intact with alteration at CESARIO gene thus he may be responsive to PARP inhibitors. (Guardant 360 showed tumor mutational burden 14.35 e.g. more than 10, pembrolizumab is indicated, and other abnormality including CESARIO W266, CESARIO [id number], CESARIO splice site indel, FDA approved therapy include olaparib, niraparib, rucaparib, talazoparib can be considered). He was having moderate to severe distress due to left anterior chest wall pain and was referred to the emergency room for further evaluation. He was also referred for PEG tube placement. He had PEG tube placement per Dr. Banks on 11/12/2020. He had confirmation of C5 involvement per MRI of the scan of the C-spine although he was not symptomatic. He was referred to Dr[facility] Connell in [facility] for consideration of palliative radiotherapy. He did see Dr. Connell on 10/28/2020. At that time he recommended palliative radiotherapy to the C5 vertebral body. Mr. Sandoval completed palliative radiotherapy for C5 involvement of his metastatic esophageal cancer on November 17, 2020. He had a prescribed dose of 30 Edmonds which delivered in 10 fractions over 15 elapsed days. PMH: Skin biopsy from left subaxillary area done on 02/05/2019 showed chronic inflammation now being treated with topical agent per Dr. Haley sustainable products marketing manager in [facility]. Started on weekly carboplatin/Taxol on December 04, 2020 Mr. Sandoval was started on his first cycle of carboplatin paclitaxel on December 04, 2020. He was able to complete day 8 (reidentified as cycle 2 day 1 due to the interim between day 1 & 8) on December 22, 2020. He did have chemotherapy-induced neutropenia on day 8 with an ANC of 1030. He did receive growth factor support with Neupogen. He required growth factor support with Neupogen again and his counts have held well .Came for follow-up, denies any specific complaint except dysphagia with certain foods like meat, cheese and bread but can swallow veggies easily. But using his feeding tube well, now also consuming some baby food via feeding tube. No nausea or vomiting, no hemoptysis or hematemesis, no fever chills. No peripheral numbness, no diarrhea or constipation. Tolerating palliative therapy with weekly carboplatin/Taxol well otherwise Medications: Aspirin 1 (81 mg) Tablet Oral daily, buPROPion HCl ER (SR) 1 (150 mg) Tablet SR 12 HR Oral daily, clonazePAM 1 (2 mg) Tablet Oral daily, Cymbalta 1 Capsule (of 100 mg) Capsule Delayed Release Particles Oral daily, Esomeprazole Magnesium 1 (40 mg) Capsule Delayed Release Oral daily, Ferrous Gluconate 1 (324 (37.5 fe) mg) Tablet Oral b.i.d., Ferrous Sulfate 1 (325 (65 fe) mg) Tablet Oral daily, Fish Oil 1 (1200 mg) Capsule Oral daily, Folic Acid 1 (1 mg) Tablet Oral daily, Gabapentin 1 (800 mg) Tablet Oral t.i.d., glipiZIDE ER 1 (5 mg) Tablet SR 24 HR Oral daily, Hydroxychloroquine Sulfate 2 Tablet (of 200 mg) Oral daily, Irbesartan 1 (75 mg) Tablet Oral daily, Lovastatin 1 (20 mg) Tablet Oral daily, Magnesium Oxide -Mg Supplement 1 (250 mg) Tablet Oral b.i.d., Methotrexate (2.5 mg) Tablet Oral Take as Directed, Nitroglycerin 1 (0.4 mg) Tablet, sublingual Sublingual PRN, OxyCODONE HCl 1 - 2 (30 mg) Tablet Oral q 4 hours PRN, Pantoprazole Sodium 1 (40 mg) Tablet, enteric coated Oral daily, PARoxetine HCl 1 (20 mg) Tablet Oral b.i.d., PredniSONE 1 Tablet (of 5 mg) Oral daily, Sildenafil Citrate 1 (25 mg) Tablet Oral PRN, tiZANidine HCl 1 Capsule (of 4 mg) Tablet Oral q 12 hours PRN Allergies: Lisinopril Review of Systems: Review of Systems is not available for this patient. Vital Signs: Performed on Jan 22, 2021 13:44 Height - 72.00 in Weight - 185 lbs (LOW) BSA - 2.06 sq.m BMI - 25.09 Temperature - 96.4 F (LOW) Pulse - 76 /min Respiration - 18 /min BP - 90/53 mm(hg) O2 Sat - 96 % Pain - 6 Fatigue - 4 Performance Status: 1 - No physically strenuous activity, but ambulatory and able to carry out light or sedentary work (e.g. office work, light house work). (ECOG) Physical Examination: ENMT - No mouth sores, no thrush, no jaundice, Respiratory - Lungs are clear to auscultation, Cardiovascular - Regular rate and rhythm of heart, Abdomen - Soft, bowel sounds present, Extremities - Trace edema bilaterally. Lab/Imaging: Test performed on Jan 22, 2021 08:59 Sodium 137 mmol/L Potassium 4.3 mmol/L Chloride 101 mmol/L CO2 24 mmol/L Anion Gap 16.3 BUN 21 mg/dL Creatinine 0.7 mg/dL Cr Clearance (Est) 149.4000 mL/min eGFR 116.2 mL/min Glucose 193 mg/dL Osmolality - Calculated 292 mOsm/kg Calcium 8.5 mg/dL Protein, Total 6.2 g/dL Albumin 3.4 g/dL Globulin 2.8 g/dL Bilirubin, Total 0.2 mg/dL ALT (SGPT) 26 U/L AST (SGOT) 22 U/L Alkaline Phosphatase 109 IU/L WBC 5.2 10 3/uL RBC 3.50 10 6/uL HGB 9.3 g/dL HCT 30.5 % MCV 87.1 fL MCH 26.6 pg MCHC 30.5 g/dL RDW 22.5 % Platelet Count 226 10 3/cmm MPV 8.6 fL Neutrophils 4.81 10 3/uL Lymphocytes 0.2 10 3/uL Monocytes 0.1 10 3/uL Eosinophils 0.0 10 3/uL Basophils 0.0 10 3/uL Neutrophil % 93.0 % Lymphocyte % 4.6 % Monocyte % 1.4 % Eosinophil % 0.0 % Basophils % 0.4 % NRBC % 0 % Impression: 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 CT PET scan done on September 11, 2020 at [facility] shows mild thickening of the distal thoracic esophagus extending into gastric cardia with FDG uptake 21.2, Multiple hypermetabolic hepatic lesions largest is 3.3 x 3.1 cm in hepatic segment 7 SUV 11.1 Status post radiation therapy to C5 which he completed on November 17, 2020 Starting on weekly carboplatin/Taxol on December 04, 2020 Hypermetabolic lymphadenopathy within the gastrohepatic and retroperitoneal station, and para-aortic. There are hypermetabolic lytic lesion centered in C5 vertebral body, and left L2 pedicle, and anterior right fourth rib. 2 . 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 A reactive process cannot be entirely excluded. 3. Rheumatoid arthritis diagnosed in 2003 on prednisone, HCQ, methotrexate, Methotrexate discontinued on December 16, 2020 due to progressive leukopenia while on chemotherapy Bilateral subaxillary skin lesion questionable etiology, was referred to Dr. haley, sustainable products marketing manager in [facility], patient underwent skin biopsy from left subaxillary area, as per patient it shows chronic inflammation and now being treated with topical agent Plan: Discussed with patient regarding his labs white blood count 5.2 hemoglobin 9.3 hematocrit 35 platelets 226,000 CMP within normal limit except glucose 193 Clinically, patient doing reasonably well, with some improvement in dysphagia while on palliative therapy with weekly carboplatin/Taxol, will proceed with next cycle number 3-day 1 with weekly carboplatin/Taxol today then he will return to clinic in 1 week with CBC and CMP if reasonable, for day 8 chemotherapy with weekly carboplatin/Taxol and after that we will consider follow-up CT PET scan and EGD to assess disease response. Patient was encouraged to maintain hydration and nutrition and he was also advised to avoid meat, cheese or bread and be careful with aspirations. And will also consider anemia work-up as his hemoglobin is stable around 9 g, if there is any iron or B12 deficiency, will consider supplement. Or if there is a drop in his hemoglobin below 8 g, consider blood transfusion. We will proceed with next cycle day 1 carboplatin/Taxol today and return to clinic in 1 week with CBC CMP. Signed By: Asaf Ramachandran M.D. <<Signature on File>>
[2021-01-29 08:59] LABS: Basophils % 0.5 %; Hematocrit 30.8 % (42.0-52.0); Hemoglobin 9.6 g/dL (11.7-16.6); Lymphocytes # 0.2 10^3/uL (0.8-4.8); Lymphocytes % 8.7 %; Mean Corpuscular HGB Conc 31.2 g/dL (30.0-36.0); Mean Corpuscular Hemoglobin 26.6 pg (28.0-34.0); Mean Corpuscular Volume 85.3 fL (80-94); Mean Platelet Volume 8.8 fL (7.4-10.4); Monocytes # 0.1 10^3/uL (0.2-0.9); Monocytes % 2.9 %; Neutrophils # 1.81 10^3/uL (1.8-7.7); Neutrophils % 87.4 %; Nucleated Red Blood Cells % 0 %; Platelet Count 195 10^3/cmm (130-400); Red Blood Count 3.61 10^6/uL (4.1-5.3); Red Cell Distribution Width 21.9 % (12.1-15.1); White Blood Count 2.1 10^3/uL (4.0-10.0)
[2021-01-29 09:15] LABS: Alanine Aminotransferase 18 U/L (0-41); Albumin Level 3.5 g/dL (3.5-5.2); Alkaline Phosphatase 116 IU/L (40-130); Anion Gap 14.3 (5-19); Aspartate Amino Transferase 20 U/L (0-40); Blood Urea Nitrogen 15 mg/dL (6-20); Calcium 8.5 mg/dL (8.5-10.5); Carbon Dioxide 25 mmol/L (22-29); Chloride 100 mmol/L (98-107); Glomerular Filtration Rate 171.4 mL/min (90-130); Glucose 202 mg/dL (65-115); Osmolality Calculated 287 mOsm/kg (285-295); Potassium 4.3 mmol/L (3.5-5.1); Sodium 135 mmol/L (136-145); Total Bilirubin 0.3 mg/dL (0.15-1.2); Total Protein 6.5 g/dL (6.6-8.7)
[2021-01-29] MEDS: famotidine 20 mg/2 mL INJ IVP (11:47)
[2021-01-29] MEDS: palonosetron 0.25 mg/5 mL SDV IVP (11:47)
[2021-01-29] MEDS: sodium chloride 0.9% 250 ML 75 ML IV (11:48)
[2021-01-29] MEDS: diphenhydrAMINE 50 mg/mL SDV 1mL 25 MG IVP (11:49)
[2021-01-29] MEDS: fosaprepitant 150 MG in sodium chloride 0.9% 150 ML 300 MG IV (12:14)
--- NOTE | 2021-01-29 14:49 | ONC FU_ITS ---
Dr. Ramachandran follow up note Patient: Maximino Sandoval Unit #: [id number]: [id number] Dicatated By: Asaf Ramachandran M.D.Date of Visit:Jan 29, 2021 Onc Med Follow-up/Prog Note History of Present Illness: Mr. 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 Mr. Sandoval was started on methotrexate and prednisone on April 27, 2024 for the T???LGL. He had abdominal ultrasound performed on August 01, 2020 which reported a normal spleen size. He has been treated for the RA for some time with prednisone Plaquenil and methotrexate. He presented to his PCP with new onset dysphagia and anemia. He did have a EGD on 08/14/2020 which reported at 35 cm from the incisors esophageal thickening, friable, and easily bleeding. The EGD pathology showed moderately poorly differentiated invasive adenocarcinoma. A CT chest abdomen pelvis was obtained on 08/14/2020 which reported diffuse circumferential distal esophageal/GE J thickening, few enlarged paraesophageal lymph nodes largest 1.1 cm, slightly enlarged celiac and quinton hepatis lymph nodes sizes 1.1 to 1.2 cm and a subcentimeter lung nodule left upper lobe and left lower lobe less than 5 mm. He had staging PET/CT on 09/11/2020 which reported marked thickening of the distal thoracic esophagus extending into the gastric cardia with marked FDG uptake at 221.2 SUV. There were multiple hypermetabolic hepatic lesions. The largest of which has a vague hypoattenuating CT correlate; this was difficult to measure but is approximately 3.3 x 3.1 cm with an hepatic segment 7/caudate bridge (SUV max of 11.1). There was hypermetabolic lymphadenopathy within the gastric hepatic and retroperitoneal stations for example 1.3 cm gastric hepatic node SUV 3.8 and an 8 mm retrocaval node maximum SUV 4.8. There was an 8 mm para-aortic node with a maximal SUV of 3.1. There were hypermetabolic lesions centered in the C5 vertebral body and the left L2 pedicle. There was additional hypermetabolic focus in the anterior right fourth rib but did not have definite CT correlate. The SUV was 5.78. Predominately symmetric FDG uptake about the hips within the bilateral gluteal muscles, bilateral iliopsoas and left tensor fossa lilliam muscles. MRI scan of the C-spine done on October 21, 2020 showed enhancing metastatic lesion at the C5 vertebral body with surrounding paravertebral soft tissue enhancement. 10 ventral epidural enhancement with mild central canal stenosis and moderate multilevel bony foraminal narrowing worse at C3-7 was seen at [facility] by Jerri Layne???ANGELIA flores and Dr. Valdo Osorio on 09/08/2020. Their notes indicate they discussed with Mr. Sandoval that he appears to have locally advanced disease with lymph node involvement. Further recommendation was treatment with chemotherapy carboplatin paclitaxel in combination with radiation. Depending on treatment response he may require surgery. If he is found to have stage IV disease by his staging PET/CT imaging would be systemic chemotherapy alone. He was recommended to have port placement at that time as well. In regards to his LGL he was to continue to follow with and continue on low-dose prednisone and methotrexate as he had adequate control since April 2019. He is to continue following with rheumatology for his RA and may continue using methotrexate, prednisone and hydroxychloroquine. Mr. Sandoval was referred back to Dr. Ramachandran and had follow-up on 09/19/2020. 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 He was also having progressive dysphagia at that time. Dr. Ramachandran recommended obtaining guardant 360 testing and placement of Port-A-Cath. He also recommended that he go and start biphosphonate to prevent skeletal related complications. Mr. Sandoval was also referred for MRI scanning of the C-spine with attention to C5 as he was having more pain. Mr. Sandoval was referred to Dr. Banks for placement of a PowerPort. He had placement of the port into the left subclavian vein which on September 29, 2020. He was then seen again by Dr. Ramachandran on 10/24/2020 and the Guardiant 360 results were reviewed. His HER-2/stephanie results were negative, MSI/MMR intact with alteration at CESARIO gene thus he may be responsive to PARP inhibitors. (Guardant 360 showed tumor mutational burden 14.35 e.g. more than 10, pembrolizumab is indicated, and other abnormality including CESARIO W266, CESARIO Q3439H, CESARIO splice site indel, FDA approved therapy include olaparib, niraparib, rucaparib, talazoparib can be considered). He was having moderate to severe distress due to left anterior chest wall pain and was referred to the emergency room for further evaluation. He was also referred for PEG tube placement. He had PEG tube placement per Dr. Banks on 11/12/2020. He had confirmation of C5 involvement per MRI of the scan of the C-spine although he was not symptomatic. He was referred to Dr. Connell in [facility] for consideration of palliative radiotherapy. He did see Dr. Connell on 10/28/2020. At that time he recommended palliative radiotherapy to the C5 vertebral body. Mr. Sandoval completed palliative radiotherapy for C5 involvement of his metastatic esophageal cancer on November 17, 2020. He had a prescribed dose of 30 Edmonds which delivered in 10 fractions over 15 elapsed days. PMH: Skin biopsy from left subaxillary area done on 02/05/2019 showed chronic inflammation now being treated with topical agent per Dr. 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 Started on weekly carboplatin/Taxol on December 04, 2020 Mr. Sandoval was started on his first cycle of carboplatin paclitaxel on December 04, 2020. He was able to complete day 8 (reidentified as cycle 2 day 1 due to the interim between day 1 & 8) on December 22, 2020. He did have chemotherapy-induced neutropenia on day 8 with an ANC of 1030. He did receive growth factor support with Neupogen. He required growth factor support with Neupogen again and his counts have held well Came for follow-up, denies any specific complaint except mild dysphagia which is improving, no hemoptysis or hematemesis, no nausea or vomiting, no diarrhea or constipation, no melena or hematochezia, no fever or chills, no peripheral neuropathy, tolerating systemic therapy well. Medications: Aspirin 1 (81 mg) Tablet Oral daily, buPROPion HCl ER (SR) 1 (150 mg) Tablet SR 12 HR Oral daily, clonazePAM 1 (2 mg) Tablet Oral daily, Cymbalta 1 Capsule (of 100 mg) Capsule Delayed Release Particles Oral daily, Esomeprazole Magnesium 1 (40 mg) Capsule Delayed Release Oral daily, Ferrous Gluconate 1 (324 (37.5 fe) mg) Tablet Oral b.i.d., Ferrous Sulfate 1 (325 (65 fe) mg) Tablet Oral daily, Fish Oil 1 (1200 mg) Capsule Oral daily, Folic Acid 1 (1 mg) Tablet Oral daily, Gabapentin 1 (800 mg) Tablet Oral t.i.d., glipiZIDE ER 1 (5 mg) Tablet SR 24 HR Oral daily, Hydroxychloroquine Sulfate 2 Tablet (of 200 mg) Oral daily, Irbesartan 1 (75 mg) Tablet Oral daily, Lovastatin 1 (20 mg) Tablet Oral daily, Magnesium Oxide -Mg Supplement 1 (250 mg) Tablet Oral b.i.d., Methotrexate (2.5 mg) Tablet Oral Take as Directed, Nitroglycerin 1 (0.4 mg) Tablet, sublingual Sublingual PRN, OxyCODONE HCl 1 - 2 (30 mg) Tablet Oral q 4 hours PRN, Pantoprazole Sodium 1 (40 mg) Tablet, enteric coated Oral daily, PARoxetine HCl 1 (20 mg) Tablet Oral b.i.d., PredniSONE 1 Tablet (of 5 mg) Oral daily, Sildenafil Citrate 1 (25 mg) Tablet Oral PRN, tiZANidine HCl 1 Capsule (of 4 mg) Tablet Oral q 12 hours PRN Allergies: Lisinopril Review of Systems: Review of Systems is not available for this patient. Vital Signs: Performed on Jan 29, 2021 10:45 Height - 72.00 in Weight - 177.4 lbs (LOW) BSA - 2.02 sq.m BMI - 24.06 Temperature - 97.2 F (LOW) Pulse - 90 /min Respiration - 17 /min BP - 106/68 mm(hg) O2 Sat - 98 % Pain - 0 Performance Status: 1 - No physically strenuous activity, but ambulatory and able to carry out light or sedentary work (e.g. office work, light house work). (ECOG) Physical Examination: ENMT - No mouth sores, no thrush, no jaundice, Respiratory - Lungs are clear to auscultation, Cardiovascular - Regular rate and rhythm of heart, Abdomen - Soft, bowel sounds present, Extremities - No visible edema. Lab/Imaging: Test performed on Jan 29, 2021 08:34 Sodium 135 mmol/L Potassium 4.3 mmol/L Chloride 100 mmol/L CO2 25 mmol/L Anion Gap 14.3 BUN 15 mg/dL Creatinine 0.5 mg/dL Cr Clearance (Est) 185.52 mL/min eGFR 171.4 mL/min Glucose 202 mg/dL Osmolality - Calculated 287 mOsm/kg Calcium 8.5 mg/dL Protein, Total 6.5 g/dL Albumin 3.5 g/dL Globulin 3.0 g/dL Bilirubin, Total 0.3 mg/dL ALT (SGPT) 18 U/L AST (SGOT) 20 U/L Alkaline Phosphatase 116 IU/L WBC 2.1 10 3/uL RBC 3.61 10 6/uL HGB 9.6 g/dL HCT 30.8 % MCV 85.3 fL MCH 26.6 pg MCHC 31.2 g/dL RDW 21.9 % Platelet Count 195 10 3/cmm MPV 8.8 fL Neutrophils 1.81 10 3/uL Lymphocytes 0.2 10 3/uL Monocytes 0.1 10 3/uL Eosinophils 0.0 10 3/uL Basophils 0.0 10 3/uL Neutrophil % 87.4 % Lymphocyte % 8.7 % Monocyte % 2.9 % Eosinophil % 0.0 % Basophils % 0.5 % NRBC % 0 % Impression: 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 CT PET scan done on September 11, 2020 at [place] shows mild thickening of the distal thoracic esophagus extending into gastric cardia with FDG uptake 21.2, Multiple hypermetabolic hepatic lesions largest is 3.3 x 3.1 cm in hepatic segment 7 SUV 11.1 Status post radiation therapy to C5 which he completed on November 17, 2020 Starting on weekly carboplatin/Taxol on December 04, 2020 Hypermetabolic lymphadenopathy within the gastrohepatic and retroperitoneal station, and para-aortic. There are hypermetabolic lytic lesion centered in C5 vertebral body, and left L2 pedicle, and anterior right fourth rib. 2 . 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 A reactive process cannot be entirely excluded. 3. Rheumatoid arthritis diagnosed in 2003 on prednisone, HCQ, methotrexate, Methotrexate discontinued on December 16, 2020 due to progressive leukopenia while on chemotherapy Bilateral subaxillary skin lesion questionable etiology, was referred to Dr. haley, coal hauler operator in [facility], patient underwent skin biopsy from left subaxillary area, as per patient it shows chronic inflammation and now being treated with topical agent Plan: Discussed with patient regarding his labs white blood count 2.1 hemoglobin 9.6 g compared to 9.3 previously hematocrit 30.8 platelets 195,000 ANC 1810 CMP within normal limit except glucose 202 Clinically, patient is doing well with no new signs symptom suggesting disease progression,, his dysphagia is improving, at this point we will proceed with cycle number 3-day 8 chemotherapy with carboplatin/Taxol followed by Neulasta to prevent chemotherapy-induced neutropenia/leukopenia and then patient return to clinic in 2 weeks with CBC CMP and will also consider follow-up EGD and CT PET scan to assess disease status, if PET scan shows no evidence of distant mets, may consider adding radiation therapy for better local control. On the other hand PET scan shows disease progression, will consider another chemo regimen and consider esophageal biopsy and molecular profiling to identify targetable therapeutic mutation^ As far as anemia is concerned, his anemia work-up done on December 16, 2020 which was inconclusive and shows iron 63, iron saturation 30.7, ferritin 198, TIBC 205, B12 1126, etiology appears multifactorial including anemia of chronic disease or malignancy or chemotherapy-induced bone marrow suppression, will continue to monitor if hemoglobin drops below 8 g will consider blood transfusion] Signed By: Asaf Ramachandran M.D. <<Signature on File>>
== END 2021-01-31 23:59 | disposition home or self-care (01) ==
LOC: ONCMED 05:41
PROVIDERS: PCP Nurse Practitioner; Visit Provider Internal Medicine Hematology & Oncology
DX: Z51.11 Encounter for antineoplastic chemotherapy (principal); C15.5 Malignant neoplasm of lower third of esophagus; C79.51 Secondary malignant neoplasm of bone; D47.3 Essential (hemorrhagic) thrombocythemia; M06.9 Rheumatoid arthritis, unspecified; Z79.52 Long term (current) use of systemic steroids; Z79.899 Other long term (current) drug therapy; Z92.21 Personal history of antineoplastic chemotherapy; Z92.3 Personal history of irradiation
CPT/HCPCS: 36415; 80053; 85025; 96367; 96375; 96413; 96417; 99215; J1100; J1200; J1453; J2469; J3490; J7030; J7040; J7050; J9045; J9267

== ENCOUNTER 2021-02-19 05:28 | Outpatient (RCR) | payer MEDICARE, SELFPAY ==
[2021-02-11 14:03] LABS: Basophils % 0.5 %; Hematocrit 28.3 % (42.0-52.0); Hemoglobin 8.6 g/dL (11.7-16.6); Lymphocytes # 0.6 10^3/uL (0.8-4.8); Lymphocytes % 9.5 %; Mean Corpuscular HGB Conc 30.4 g/dL (30.0-36.0); Mean Corpuscular Hemoglobin 27.2 pg (28.0-34.0); Mean Corpuscular Volume 89.6 fL (80-94); Mean Platelet Volume 9.4 fL (7.4-10.4); Monocytes # 0.4 10^3/uL (0.2-0.9); Monocytes % 6.4 %; Neutrophils # 4.92 10^3/uL (1.8-7.7); Neutrophils % 76.3 %; Nucleated Red Blood Cells # 0.1 /100WBC; Nucleated Red Blood Cells % 1.1 %; Platelet Count 322 10^3/cmm (130-400); Red Blood Count 3.16 10^6/uL (4.1-5.3); Red Cell Distribution Width 23.7 % (12.1-15.1); White Blood Count 6.4 10^3/uL (4.0-10.0)
[2021-02-11 14:32] LABS: Alanine Aminotransferase 15 U/L (0-41); Albumin Level 3.4 g/dL (3.5-5.2); Alkaline Phosphatase 101 IU/L (40-130); Anion Gap 16.9 (5-19); Aspartate Amino Transferase 16 U/L (0-40); Blood Urea Nitrogen 21 mg/dL (6-20); Calcium 8.4 mg/dL (8.5-10.5); Carbon Dioxide 24 mmol/L (22-29); Chloride 101 mmol/L (98-107); Globulin 2.5 g/dL (1.3-4.6); Glomerular Filtration Rate 138.9 mL/min (90-130); Glucose 200 mg/dL (65-115); Osmolality Calculated 295 mOsm/kg (285-295); Potassium 3.9 mmol/L (3.5-5.1); Sodium 138 mmol/L (136-145); Total Bilirubin 0.2 mg/dL (0.15-1.2); Total Protein 5.9 g/dL (6.6-8.7)
[2021-02-11 15:21] LABS: Slide Review Slide Review Perform
[2021-02-11 15:24] LABS: Add RBC Morph Yes; RBC Morph Comp No
[2021-02-11 15:25] LABS: Macrocytosis 1+; Poikilocytosis Trace; Schistocytes Trace
[2021-02-11 15:26] LABS: Anisocytosis 2+; Ovalocytes Trace
[2021-02-12] MEDS: sodium chloride 0.9% 250 ML 75 ML IV (10:57)
[2021-02-12] MEDS: palonosetron 0.25 mg/5 mL SDV IV (10:57)
[2021-02-12] MEDS: diphenhydrAMINE 50 mg/mL SDV 1mL 25 MG IV (10:58)
[2021-02-12] MEDS: famotidine 20 mg/2 mL INJ IVP (10:59)
[2021-02-12] MEDS: fosaprepitant 150 MG in sodium chloride 0.9% 150 ML 300 MG IV (11:25)
--- NOTE | 2021-02-12 16:25 | ONC FU_ITS ---
Dr. Ramachandran follow up note Patient: Maximino Sandoval Unit #: [id number]: 1965 Dicatated By: Asaf Ramachandran M.D.Date of Visit:Feb 12, 2021 Onc Med Follow-up/Prog Note History of Present Illness: Mr. 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 Mr. Sandoval was started on methotrexate and prednisone on April 27, 2020 for the T???LGL. He had abdominal ultrasound performed on August 01, 2020 which reported a normal spleen size. He has been treated for the RA for some time with prednisone Plaquenil and methotrexate. He presented to his PCP with new onset dysphagia and anemia. He did have a EGD on 08/14/2020 which reported at 35 cm from the incisors esophageal thickening, friable, and easily bleeding. The EGD pathology showed moderately poorly differentiated invasive adenocarcinoma. A CT chest abdomen pelvis was obtained on 08/14/2020 which reported diffuse circumferential distal esophageal/GE J thickening, few enlarged paraesophageal lymph nodes largest 1.1 cm, slightly enlarged celiac and quinton hepatis lymph nodes sizes 1.1 to 1.2 cm and a subcentimeter lung nodule left upper lobe and left lower lobe less than 5 mm. He had staging PET/CT on 09/11/2020 which reported marked thickening of the distal thoracic esophagus extending into the gastric cardia with marked FDG uptake at 221.2 SUV. There were multiple hypermetabolic hepatic lesions. The largest of which has a vague hypoattenuating CT correlate; this was difficult to measure but is approximately 3.3 x 3.1 cm with an hepatic segment 7/caudate bridge (SUV max of 11.1). There was hypermetabolic lymphadenopathy within the gastric hepatic and retroperitoneal stations for example 1.3 cm gastric hepatic node SUV 3.8 and an 8 mm retrocaval node maximum SUV 4.8. There was an 8 mm para-aortic node with a maximal SUV of 3.1. There were hypermetabolic lesions centered in the C5 vertebral body and the left L2 pedicle. There was additional hypermetabolic focus in the anterior right fourth rib but did not have definite CT correlate. The SUV was 5.78. Predominately symmetric FDG uptake about the hips within the bilateral gluteal muscles, bilateral iliopsoas and left tensor fossa lilliam muscles. MRI scan of the C-spine done on October 21, 2020 showed enhancing metastatic lesion at the C5 vertebral body with surrounding paravertebral soft tissue enhancement. 10 ventral epidural enhancement with mild central canal stenosis and moderate multilevel bony foraminal narrowing worse at C3-7 was seen at [facility] by Jerri Layne???ANGELIA flores and Dr. Valdo Osorio on 09/08/2020. Their notes indicate they discussed with Mr. Sandoval that he appears to have locally advanced disease with lymph node involvement. Further recommendation was treatment with chemotherapy carboplatin paclitaxel in combination with radiation. Depending on treatment response he may require surgery. If he is found to have stage IV disease by his staging PET/CT imaging would be systemic chemotherapy alone. He was recommended to have port placement at that time as well. In regards to his LGL he was to continue to follow with and continue on low-dose prednisone and methotrexate as he had adequate control since April 2019. He is to continue following with rheumatology for his RA and may continue using methotrexate, prednisone and hydroxychloroquine. Mr. Sandoval was referred back to us and had follow-up on 09/19/2020. 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 He was also having progressive dysphagia at that time. recommended obtaining guardant 360 testing and placement of Port-A-Cath. He also recommended to get biphosphonate to prevent skeletal related complications. Mr. Sandoval was also referred for MRI scanning of the C-spine with attention to C5 as he was having more pain. Mr. Sandoval was referred to Dr. Banks for placement of a PowerPort. He had placement of the port into the left subclavian vein which on September 29, 2020. He was then seen on 10/24/2020 and the Guardiant 360 results were reviewed. His HER-2/stephanie results were negative, MSI/MMR intact with alteration at CESARIO gene thus he may be responsive to PARP inhibitors. (Guardant 360 showed tumor mutational burden 14.35 e.g. more than 10, pembrolizumab is indicated, and other abnormality including CESARIO W266, CESARIO U3894D, CESARIO splice site indel, FDA approved therapy include olaparib, niraparib, rucaparib, talazoparib can be considered). He was having moderate to severe distress due to left anterior chest wall pain and was referred to the emergency room for further evaluation. He was also referred for PEG tube placement. He had PEG tube placement per Dr. Banks on 11/12/2020. He had confirmation of C5 involvement per MRI of the scan of the C-spine although he was not symptomatic. He was referred to Dr. Connell in [facility] for consideration of palliative radiotherapy. He did see Dr. Connell on 10/28/2020. At that time he recommended palliative radiotherapy to the C5 vertebral body. Mr. Sandoval completed palliative radiotherapy for C5 involvement of his metastatic esophageal cancer on November 17, 2020. He had a prescribed dose of 30 Edmonds which delivered in 10 fractions over 15 elapsed days. PMH: Skin biopsy from left subaxillary area done on 02/05/2019 showed chronic inflammation now being treated with topical agent per Dr. Haley hat band attacher in [facility]. Started on weekly carboplatin/Taxol on December 04, 2020 Mr. Sandoval was started on his first cycle of carboplatin paclitaxel on December 04, 2020. He was able to complete day 8 (reidentified as cycle 2 day 1 due to the interim between day 1 & 8) on December 22, 2020. He did have chemotherapy-induced neutropenia on day 8 with an ANC of 1030. He did receive growth factor support with Neupogen. He required growth factor support with Neupogen again and his counts have held well Follow-up CT PET scan after 3 cycles done on January 31, 2021 showed 3.2 cm distal esophageal thickening with SUV of 9.2 compared to 21.[address] PET scan done at [place] on September 11, 2020. And FDG positive mediastinal lymph nodes are consistent with local metastatic disease dominant node in the superior right lateral tracheal node measuring 1.9 cm with SUV of 5.7. Other nodes in the right paratracheal territory are less FDG avid. Multifocal hepatic metastatic disease is present in the right and left lobes. Several hepatic hypodensities are minimally FDG positive consistent with previously treated lesions. However, several FDG avid lesions have SUV up to 7.0 indicating active lesions. A right retroperitoneal aortocaval node is FDG positive. Multifocal osseous metastatic disease is present in the left L2 pedicle, right pubic bone, anterior right fourth rib. Came for follow-up, denies any specific complaints, no fever chills, no nausea or vomiting, no diarrhea or constipation, no hemoptysis or hematemesis, no melena or hematochezia, no jaundice, swallowing most of food without any problem but still using G-tube. No new bony pains. Tolerating systemic therapy with carboplatin/Taxol well otherwise Medications: Aspirin 1 (81 mg) Tablet Oral daily, buPROPion HCl ER (SR) 1 (150 mg) Tablet SR 12 HR Oral daily, clonazePAM 1 (2 mg) Tablet Oral daily, Cymbalta 1 Capsule (of 100 mg) Capsule Delayed Release Particles Oral daily, Esomeprazole Magnesium 1 (40 mg) Capsule Delayed Release Oral daily, Ferrous Gluconate 1 (324 (37.5 fe) mg) Tablet Oral b.i.d., Ferrous Sulfate 1 (325 (65 fe) mg) Tablet Oral daily, Fish Oil 1 (1200 mg) Capsule Oral daily, Folic Acid 1 (1 mg) Tablet Oral daily, Gabapentin 1 (800 mg) Tablet Oral t.i.d., glipiZIDE ER 1 (5 mg) Tablet SR 24 HR Oral daily, Hydroxychloroquine Sulfate 2 Tablet (of 200 mg) Oral daily, Irbesartan 1 (75 mg) Tablet Oral daily, Lovastatin 1 (20 mg) Tablet Oral daily, Magnesium Oxide -Mg Supplement 1 (250 mg) Tablet Oral b.i.d., Methotrexate (2.5 mg) Tablet Oral Take as Directed, Nitroglycerin 1 (0.4 mg) Tablet, sublingual Sublingual PRN, OxyCODONE HCl 1 - 2 (30 mg) Tablet Oral q 4 hours PRN, Pantoprazole Sodium 1 (40 mg) Tablet, enteric coated Oral daily, PARoxetine HCl 1 (20 mg) Tablet Oral b.i.d., PredniSONE 1 Tablet (of 5 mg) Oral daily, Sildenafil Citrate 1 (25 mg) Tablet Oral PRN, tiZANidine HCl 1 Capsule (of 4 mg) Tablet Oral q 12 hours PRN Allergies: Lisinopril Review of Systems: Review of Systems is not available for this patient. Vital Signs: Performed on Feb 12, 2021 09:26 Height - 72.00 in Weight - 188 lbs (HIGH) BSA - 2.08 sq.m BMI - 25.50 Temperature - 97.8 F (LOW) Pulse - 58 /min (LOW) Respiration - 18 /min BP - 93/55 mm(hg) O2 Sat - 97 % Pain - 6 Fatigue - 5 Performance Status: 1 - No physically strenuous activity, but ambulatory and able to carry out light or sedentary work (e.g. office work, light house work). (ECOG) Physical Examination: ENMT - No mouth sores, no thrush, no jaundice, Respiratory - Lungs are clear to auscultation, Cardiovascular - Regular rate and rhythm of heart, Abdomen - Soft, bowel sounds present, G-tube site clean, Extremities - Trace edema. Lab/Imaging: Test performed on Feb 11, 2021 13:34 Sodium 138 mmol/L Potassium 3.9 mmol/L Chloride 101 mmol/L CO2 24 mmol/L Anion Gap 16.9 BUN 21 mg/dL Creatinine 0.6 mg/dL Cr Clearance (Est) 154.6000 mL/min eGFR 138.9 mL/min Glucose 200 mg/dL Osmolality - Calculated 295 mOsm/kg Calcium 8.4 mg/dL Protein, Total 5.9 g/dL Albumin 3.4 g/dL Globulin 2.5 g/dL Bilirubin, Total 0.2 mg/dL ALT (SGPT) 15 U/L AST (SGOT) 16 U/L Alkaline Phosphatase 101 IU/L WBC 6.4 10 3/uL RBC 3.16 10 6/uL Anisocytosis 2+ HGB 8.6 g/dL HCT 28.3 % Macrocytosis 1+ MCV 89.6 fL MCH 27.2 pg Poikilocytosis Trace MCHC 30.4 g/dL RDW 23.7 % Platelet Count 322 10 3/cmm MPV 9.4 fL Neutrophils 4.92 10 3/uL Lymphocytes 0.6 10 3/uL Monocytes 0.4 10 3/uL Ovalocytes Trace Eosinophils 0.0 10 3/uL Basophils 0.0 10 3/uL Schistocytes Trace Neutrophil % 76.3 % Lymphocyte % 9.5 % Monocyte % 6.4 % Eosinophil % 0.0 % Basophils % 0.5 % NRBC % 1.1 % CBC Slide Review Slide Review Perform Impression: 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 CT PET scan done on September 11, 2020 at [place] shows mild thickening of the distal thoracic esophagus extending into gastric cardia with FDG uptake 21.2, Multiple hypermetabolic hepatic lesions largest is 3.3 x 3.1 cm in hepatic segment 7 SUV 11.1 Status post radiation therapy to C5 which he completed on November 17, 2020 Starting on weekly carboplatin/Taxol on December 04, 2020 Hypermetabolic lymphadenopathy within the gastrohepatic and retroperitoneal station, and para-aortic. There are hypermetabolic lytic lesion centered in C5 vertebral body, and left L2 pedicle, and anterior right fourth rib. 2 . 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 A reactive process cannot be entirely excluded. 3. Rheumatoid arthritis diagnosed in 2004 on prednisone, HCQ, methotrexate, Methotrexate discontinued on December 16, 2020 due to progressive leukopenia while on chemotherapy Bilateral subaxillary skin lesion questionable etiology, was referred to Dr. haley, hat band attacher in [facility], patient underwent skin biopsy from left subaxillary area, as per patient it shows chronic inflammation and now being treated with topical agent Status post radiation therapy to C5 , Completed in December 2020 Started on palliative chemotherapy with carboplatin/Taxol on December 04, 2020 CT PET scan finding which Was done on January 31, 2021 showed 3.2 cm distal esophageal thickening with SUV of 9.2, compared to 21.[address] PET scan done at [place] on September 11, 2020 malignant mediastinal and upper abdominal lymphadenopathy which was seen on previous CT PET scan and multiple hepatic lesions, improvement now SUV of 7 compared to 11 previously and many of the hepatic lesion shows no FDG activity. No new bony lesion but persistent right pubic bone, left L2 pedicle, anterior right fourth rib lesion Plan: Discussed with patient regarding his labs which shows white blood count 6.4 hemoglobin 8.6 hematocrit 28.3 platelets 322,000 CMP within normal limits and CT PET scan finding whichWas done on January 31, 2021 showed 3.2 cm distal esophageal thickening with SUV of 9.2, compared to 21.[address] PET scan done at [place] on September 11, 2020 malignant mediastinal and upper abdominal lymphadenopathy which was seen on previous CT PET scan and multiple hepatic lesions, improvement now SUV of 7 compared to 11 previously and many of the hepatic lesion shows no FDG activity. No new bony lesion but persistent right pubic bone, left L2 pedicle, anterior right fourth rib lesion Clinically, patient is doing well with no new signs symptoms suggestive of disease progression his follow-up CT PET scan shows significant improvement when compared with CT PET scan done in September 2020 at [place], keeping in mind patient started systemic chemotherapy in first week of December 2020., He is tolerating palliative chemotherapy with weekly carboplatin and Taxol well, at this point, based on his guardant 360, patient was again offered immunotherapy in addition to his current chemo regimen but patient has history of rheumatoid arthritis and literature has shown increased risk in a patient with connective tissue disorder/autoimmune disorder, patient is reluctant rather wants to continue with same regimen and we will repeat CT PET scan after 3 cycles. Other option was treatment with immunotherapy alone considering his TMB score is more than 10 and significant improvement after 3 cycles of chemotherapy seen on recent CT PET scan, we are still awaiting his PD-L1 status. At this point, will proceed with next cycle chemotherapy with carboplatin/Taxol and patient was supposed to be on Xgeva, will also consider adding Xgeva to prevent skeletal related complication. As far as anemia is concerned, probably multifactorial, will continue to monitor and consider blood transfusion if hemoglobin is less than 8 g. Patient return to clinic in 1 week with CBC CMP Signed By: Asaf Ramachandran M.D. <<Signature on File>>
[2021-02-19] MEDS: alteplase 1 mg/mL SDV 2 mL 2 MG IV (08:30)
[2021-02-19 08:34] LABS: Basophils % 0.3 %; Hematocrit 29.2 % (42.0-52.0); Hemoglobin 9.2 g/dL (11.7-16.6); Lymphocytes # 0.3 10^3/uL (0.8-4.8); Mean Corpuscular HGB Conc 31.5 g/dL (30.0-36.0); Mean Corpuscular Hemoglobin 28.4 pg (28.0-34.0); Mean Corpuscular Volume 90.1 fl (80-94); Mean Platelet Volume 9.2 fL (7.4-10.4); Monocytes # 0.2 10^3/uL (0.2-0.9); Monocytes % 4.8 %; Neutrophils # 3.08 10^3/uL (1.8-7.7); Neutrophils % 86.8 %; Nucleated Red Blood Cells % 0 %; Platelet Count 193 10^3/cmm (130-400); Red Blood Count 3.24 10^6/uL (4.1-5.3); Red Cell Distribution Width 24.5 % (12.1-15.1); White Blood Count 3.6 10^3/uL (4.0-10.0)
[2021-02-19 08:57] LABS: Alanine Aminotransferase 16 U/L (0-41); Albumin Level 3.5 g/dL (3.5-5.2); Alkaline Phosphatase 90 IU/L (40-130); Anion Gap 11.4 (5-19); Aspartate Amino Transferase 20 U/L (0-40); Blood Urea Nitrogen 13 mg/dL (6-20); Calcium 8.2 mg/dL (8.5-10.5); Carbon Dioxide 25 mmol/L (22-29); Chloride 101 mmol/L (98-107); Globulin 2.7 g/dL (1.3-4.6); Glomerular Filtration Rate 138.9 mL/min (90-130); Glucose 154 mg/dL (65-115); Osmolality Calculated 279 mOsm/kg (285-295); Potassium 4.4 mmol/L (3.5-5.1); Sodium 133 mmol/L (136-145); Total Bilirubin 0.5 mg/dL (0.15-1.2); Total Protein 6.2 g/dL (6.6-8.7)
[2021-02-19 09:37] LABS: Reticulocyte % 0.5 % (0.5-2.0)
[2021-02-19] MEDS: palonosetron 0.25 mg/5 mL SDV IV (09:50)
[2021-02-19 09:51] LABS: Ferritin 643 ng/mL (30-400); Iron 15 ug/dL (59-158); Lactate Dehydrogenase 247 U/L (135-225); Percent Saturation 7.4 % (20-50); Total Iron Binding Capacity 201 mcg/dl; Unsaturated Iron Binding 186 ug/dL (112-347)
[2021-02-19] MEDS: diphenhydrAMINE 50 mg/mL SDV 1mL 25 MG IV (09:51)
[2021-02-19] MEDS: famotidine 20 mg/2 mL INJ IVP (09:52)
[2021-02-19] MEDS: sodium chloride 0.9% 250 ML 75 ML IV (09:55)
[2021-02-19] MEDS: fosaprepitant 150 MG in sodium chloride 0.9% 150 ML 300 MG IV (10:19)
[2021-02-19] MEDS: denosumab 120 mg SDV SUBCUT (11:50)
== END 2021-03-03 23:59 | disposition home or self-care (01) ==
LOC: ONCMED 05:28
PROVIDERS: Internal Medicine; PCP Nurse Practitioner; Visit Provider Internal Medicine Hematology & Oncology
DX: Z51.11 Encounter for antineoplastic chemotherapy (principal); C15.5 Malignant neoplasm of lower third of esophagus; C79.51 Secondary malignant neoplasm of bone; C78.7 Secondary malignant neoplasm of liver and intrahepatic bile duct; D47.3 Essential (hemorrhagic) thrombocythemia; R59.0 Localized enlarged lymph nodes; M06.9 Rheumatoid arthritis, unspecified; Z79.52 Long term (current) use of systemic steroids; Z79.899 Other long term (current) drug therapy
CPT/HCPCS: 36591; 36593; 80053; 82728; 83540; 83550; 83615; 85025; 85045; 96367; 96372; 96375; 96413; 96417; 99215; J0897; J1100; J1200; J1453; J2469; J2997; J3490; J7030; J7040; J7050; J9045; J9267

== ENCOUNTER → 2021-02-23 14:45 | Outpatient (BNVA) | payer MEDICARE, SELFPAY | PROVIDERS: PCP Nurse Practitioner; Visit Provider Internal Medicine | DX: I10 Essential (primary) hypertension (principal); Z09 Encounter for follow-up examination after completed treatment for conditions other than malignant neoplasm; R13.10 Dysphagia, unspecified; C15.9 Malignant neoplasm of esophagus, unspecified; G89.29 Other chronic pain; Z95.5 Presence of coronary angioplasty implant and graft | CPT/HCPCS: 80048 ==

== ENCOUNTER → 2021-02-24 10:50 | Day surgery (SDC) | payer MEDICARE, SELFPAY ==
[2021-02-24 11:10] VITALS: BMI 25.9
[2021-02-24 11:11] VITALS: BP 101/70; PULSE 83; RESP 18; TEMP 36.6; O2SAT 99
--- NOTE | 2021-03-06 12:56 | P.PCN_ITS ---
Procedure/Consent Time out: Time Out Performed: Yes Consent: Consent for Procedure: Consent obtained from patient Procedure Narrative: Preoperative diagnosis: Esophageal cancer with leakage around PEG tube Postop diagnosis: Same Surgeon: Darren Anesthesia: None Procedure: Exchange of gastrostomy tube Description of the procedure: The existing PEG tube was removed by applying traction. Patient tolerated the procedure well. There was no significant bleeding. A 20 Slov[place] gastrostomy tube was introduced through the gastrostomy and balloon insufflated with 7 cc of saline. Sterile dressings applied. Acute Procedures Epistaxis Control: Time out performed: Yes
== END ==
PROVIDERS: PCP Nurse Practitioner; Visit Provider Surgery
DX: D47.3 Essential (hemorrhagic) thrombocythemia (principal)
CPT/HCPCS: 43762

== ENCOUNTER 2021-02-26 08:14 | Outpatient (CLI) | payer MEDICARE, SELFPAY ==
--- NOTE | 2021-02-26 | FL_ITS ---
WS: [id number] Upper GI examination, limited. Examination is performed to the patient's PEG tube to evaluate for source of leak. Fluoroscopy time: 2.0 minutes. Gastrografin is inserted through the PEG tube. Immediate filling of the stomach is identified. The ba lloon is identified and well distended. Injected approximately 60 cc of Gastrografin without difficul ty. The contrast remained within the stomach and did not extravasate. Patient was stood up and there was no extravasation with the patient upright either. FL/FL upper GI series [id number] IMPRESSION: Uncomplicated appearance of the PEG tube. There is no extravasation of contrast or leakage during this examination with patient supine and upright.
--- NOTE | 2021-02-26 08:30 | FL_ITS ---
WS: [id number] Upper GI examination, limited. Examination is performed to the patient's PEG tube to evaluate for source of leak. Fluoroscopy time: 2.0 minutes. Gastrografin is inserted through the PEG tube. Immediate filling of the stomach is identified. The ba lloon is identified and well distended. Injected approximately 60 cc of Gastrografin without difficul ty. The contrast remained within the stomach and did not extravasate. Patient was stood up and there was no extravasation with the patient upright either.
[2021-02-26] MEDS: diatrizoate meglumine 120 mL Sol PR (09:12)
== END 2021-02-26 08:15 | disposition home or self-care (01) ==
LOC: RAD 08:20
PROVIDERS: PCP Nurse Practitioner; Visit Provider Surgery
DX: R68.89 Other general symptoms and signs (principal); Z93.1 Gastrostomy status
CPT/HCPCS: 74240; 74246

== ENCOUNTER 2021-04-02 06:21 | Outpatient (RCR) | payer MEDICARE, SELFPAY ==
[2021-03-05 09:25] LABS: Hematocrit 26.8 % (42.0-52.0); Hemoglobin 8.5 g/dL (11.7-16.6); Mean Corpuscular HGB Conc 31.7 g/dL (30.0-36.0); Mean Corpuscular Volume 91.5 fl (80-94); Mean Platelet Volume 9.1 fL (7.4-10.4); Platelet Count 287 10^3/cmm (130-400); Red Blood Count 2.93 10^6/uL (4.1-5.3); Red Cell Distribution Width 22.5 % (12.1-15.1); White Blood Count 4.3 10^3/uL (4.0-10.0)
[2021-03-05 09:49] LABS: Slide Review Slide Review Perform
[2021-03-05 09:52] LABS: Absolute Neutrophil 3.6 10^3/cmm (1.4-6.5); Alanine Aminotransferase 15 U/L (0-41); Albumin Level 3.7 g/dL (3.5-5.2); Alkaline Phosphatase 254 IU/L (40-130); Anion Gap 15.3 (5-19); Anisocytosis 2+; Aspartate Amino Transferase 17 U/L (0-40); Band Neutrophils Absolute 0.6 10^3/cmm (0.0-1.2); Blood Urea Nitrogen 18 mg/dL (6-20); Calcium 8.7 mg/dL (8.5-10.5); Carbon Dioxide 24 mmol/L (22-29); Chloride 101 mmol/L (98-107); Eosinophils 0 %; Globulin 2.7 g/dL (1.3-4.6); Glomerular Filtration Rate 138.9 mL/min (90-130); Glucose 142 mg/dL (65-115); Lymphocytes 10 %; Lymphocytes Absolute 0.5 10^3/cmm (1.2-3.4); Monocytes Absolute 0.1 10^3/cmm (0.1-0.6); Osmolality Calculated 286 mOsm/kg (285-295); Platelet Estimate Normal (Normal); Poikilocytosis 2+; Potassium 4.3 mmol/L (3.5-5.1); Segmented Neutrophils 69 %; Sodium 136 mmol/L (136-145); Total Bilirubin 0.2 mg/dL (0.15-1.2); Total Cells Counted 100 (0-100); Total Protein 6.4 g/dL (6.6-8.7)
[2021-03-05] MEDS: famotidine 20 mg/2 mL INJ IVP (11:32)
[2021-03-05] MEDS: sodium chloride 0.9% 250 ML 75 ML IV (11:32)
[2021-03-05] MEDS: palonosetron 0.25 mg/5 mL SDV IV (11:33)
[2021-03-05] MEDS: diphenhydrAMINE 50 mg/mL SDV 1mL 25 MG IV (11:34)
[2021-03-05] MEDS: fosaprepitant 150 MG in sodium chloride 0.9% 150 ML 300 MG IV (11:48)
--- NOTE | 2021-03-05 15:55 | ONC FU_ITS ---
Dr. Ramachandran follow up note Patient: Maximino Sandoval Unit #: [id number]: [id number] Dicatated By: Asaf Ramachandran M.D.Date of Visit:Mar 05, 2021 Onc Med Follow-up/Prog Note History of Present Illness: Mr. 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 Mr. Sandoval was started on methotrexate and prednisone on April 27, 2020 for the T???LGL. He had abdominal ultrasound performed on August 01, 2020 which reported a normal spleen size. He has been treated for the RA for some time with prednisone Plaquenil and methotrexate. He presented to his PCP with new onset dysphagia and anemia. He did have a EGD on 08/14/2020 which reported at 35 cm from the incisors esophageal thickening, friable, and easily bleeding. The EGD pathology showed moderately poorly differentiated invasive adenocarcinoma. A CT chest abdomen pelvis was obtained on 08/14/2020 which reported diffuse circumferential distal esophageal/GE J thickening, few enlarged paraesophageal lymph nodes largest 1.1 cm, slightly enlarged celiac and quinton hepatis lymph nodes sizes 1.1 to 1.2 cm and a subcentimeter lung nodule left upper lobe and left lower lobe less than 5 mm. He had staging PET/CT on 09/11/2020 which reported marked thickening of the distal thoracic esophagus extending into the gastric cardia with marked FDG uptake at 221.2 SUV. There were multiple hypermetabolic hepatic lesions. The largest of which has a vague hypoattenuating CT correlate; this was difficult to measure but is approximately 3.3 x 3.1 cm with an hepatic segment 7/caudate bridge (SUV max of 11.1). There was hypermetabolic lymphadenopathy within the gastric hepatic and retroperitoneal stations for example 1.3 cm gastric hepatic node SUV 3.8 and an 8 mm retrocaval node maximum SUV 4.8. There was an 8 mm para-aortic node with a maximal SUV of 3.1. There were hypermetabolic lesions centered in the C5 vertebral body and the left L2 pedicle. There was additional hypermetabolic focus in the anterior right fourth rib but did not have definite CT correlate. The SUV was 5.78. Predominately symmetric FDG uptake about the hips within the bilateral gluteal muscles, bilateral iliopsoas and left tensor fossa lilliam muscles. MRI scan of the C-spine done on October 21, 2020 showed enhancing metastatic lesion at the C5 vertebral body with surrounding paravertebral soft tissue enhancement. 10 ventral epidural enhancement with mild central canal stenosis and moderate multilevel bony foraminal narrowing worse at C3-7 was seen at [facility] by Jerri Layne???ANGELIA flores and Dr. Valdo Osorio on 09/08/2020. Their notes indicate they discussed with Mr. Sandoval that he appears to have locally advanced disease with lymph node involvement. Further recommendation was treatment with chemotherapy carboplatin paclitaxel in combination with radiation. Depending on treatment response he may require surgery. If he is found to have stage IV disease by his staging PET/CT imaging would be systemic chemotherapy alone. He was recommended to have port placement at that time as well. In regards to his LGL he was to continue to follow with and continue on low-dose prednisone and methotrexate as he had adequate control since April 2019. He is to continue following with rheumatology for his RA and may continue using methotrexate, prednisone and hydroxychloroquine. Mr. Sandoval was referred back to us and had follow-up on 09/19/2020. 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 He was also having progressive dysphagia at that time. recommended obtaining guardant 360 testing and placement of Port-A-Cath. He also recommended to get biphosphonate to prevent skeletal related complications. Mr. Sandoval was also referred for MRI scanning of the C-spine with attention to C5 as he was having more pain. Mr. Sandoval was referred to Dr. Banks for placement of a PowerPort. He had placement of the port into the left subclavian vein which on September 29, 2020. He was then seen on 10/24/2020 and the Guardiant 360 results were reviewed. His HER-2/stephanie results were negative, MSI/MMR intact with alteration at CESARIO gene thus he may be responsive to PARP inhibitors. (Guardant 360 showed tumor mutational burden 14.35 e.g. more than 10, pembrolizumab is indicated, and other abnormality including CESARIO W266, CESARIO S9660S, CESARIO splice site indel, FDA approved therapy include olaparib, niraparib, rucaparib, talazoparib can be considered). He was having moderate to severe distress due to left anterior chest wall pain and was referred to the emergency room for further evaluation. He was also referred for PEG tube placement. He had PEG tube placement per Dr. Bnaks on 11/12/2020. He had confirmation of C5 involvement per MRI of the scan of the C-spine although he was not symptomatic. He was referred to Dr. Connell in [facility] for consideration of palliative radiotherapy. He did see Dr. Connell on 10/28/2020. At that time he recommended palliative radiotherapy to the C5 vertebral body. Mr. Sandoval completed palliative radiotherapy for C5 involvement of his metastatic esophageal cancer on November 17, 2020. He had a prescribed dose of 30 Edmonds which delivered in 10 fractions over 15 elapsed days. PMH: Skin biopsy from left subaxillary area done on 02/05/2019 showed chronic inflammation now being treated with topical agent per Dr. Haley whipped topping mixer in [facility]. Started on weekly carboplatin/Taxol on December 04, 2020 Mr. Sandoval was started on his first cycle of carboplatin paclitaxel on December 04, 2020. He was able to complete day 8 (reidentified as cycle 2 day 1 due to the interim between day 1 & 8) on December 22, 2020. He did have chemotherapy-induced neutropenia on day 8 with an ANC of 1030. He did receive growth factor support with Neupogen. He required growth factor support with Neupogen again and his counts have held well Follow-up CT PET scan after 3 cycles done on January 31, 2021 showed 3.2 cm distal esophageal thickening with SUV of 9.2 compared to 21.[address] PET scan done at [place] on September 11, 2020. And FDG positive mediastinal lymph nodes are consistent with local metastatic disease dominant node in the superior right lateral tracheal node measuring 1.9 cm with SUV of 5.7. Other nodes in the right paratracheal territory are less FDG avid. Multifocal hepatic metastatic disease is present in the right and left lobes. Several hepatic hypodensities are minimally FDG positive consistent with previously treated lesions. However, several FDG avid lesions have SUV up to 7.0 indicating active lesions. A right retroperitoneal aortocaval node is FDG positive. Multifocal osseous metastatic disease is present in the left L2 pedicle, right pubic bone, anterior right fourth rib. Came for follow-up, denies any specific complaints, no fever chills, no nausea or vomiting, no diarrhea constipation, using feeding tube well, also tolerating orally well. Denies any worsening of mild peripheral neuropathy, tolerating systemic therapy with carboplatin/Taxol well otherwise Medications: Aspirin 1 (81 mg) Tablet Oral daily, buPROPion HCl ER (SR) 1 (150 mg) Tablet SR 12 HR Oral daily, clonazePAM 1 (2 mg) Tablet Oral daily, Cymbalta 1 Capsule (of 100 mg) Capsule Delayed Release Particles Oral daily, Esomeprazole Magnesium 1 (40 mg) Capsule Delayed Release Oral daily, Ferrous Gluconate 1 (324 (37.5 fe) mg) Tablet Oral b.i.d., Ferrous Sulfate 1 (325 (65 fe) mg) Tablet Oral daily, Fish Oil 1 (1200 mg) Capsule Oral daily, Folic Acid 1 (1 mg) Tablet Oral daily, Gabapentin 1 (800 mg) Tablet Oral t.i.d., glipiZIDE ER 1 (5 mg) Tablet SR 24 HR Oral daily, Hydroxychloroquine Sulfate 2 Tablet (of 200 mg) Oral daily, Irbesartan 1 (75 mg) Tablet Oral daily, Lovastatin 1 (20 mg) Tablet Oral daily, Magnesium Oxide -Mg Supplement 1 (250 mg) Tablet Oral b.i.d., Methotrexate (2.5 mg) Tablet Oral Take as Directed, Nitroglycerin 1 (0.4 mg) Tablet, sublingual Sublingual PRN, OxyCODONE HCl 1 - 2 (30 mg) Tablet Oral q 4 hours PRN, Pantoprazole Sodium 1 (40 mg) Tablet, enteric coated Oral daily, PARoxetine HCl 1 (20 mg) Tablet Oral b.i.d., PredniSONE 1 Tablet (of 5 mg) Oral daily, Sildenafil Citrate 1 (25 mg) Tablet Oral PRN, tiZANidine HCl 1 Capsule (of 4 mg) Tablet Oral q 12 hours PRN Allergies: Lisinopril Review of Systems: Review of Systems is not available for this patient. Vital Signs: Performed on Mar 05, 2021 11:52 Height - 72.00 in Weight - 184.2 lbs (LOW) BSA - 2.06 sq.m BMI - 24.98 Temperature - 98.2 F (LOW) Pulse - 76 /min Respiration - 18 /min BP - 119/70 mm(hg) O2 Sat - 99 % Pain - 0 Fatigue - 0 Performance Status: 1 - No physically strenuous activity, but ambulatory and able to carry out light or sedentary work (e.g. office work, light house work). (ECOG) Physical Examination: ENMT - No mouth sores, no thrush, no jaundice, Respiratory - Lungs are clear to auscultation, Cardiovascular - Regular rate and rhythm of heart, Abdomen - Soft, bowel sounds present, G-tube site is clear, Extremities - No visible edema. Lab/Imaging: Test performed on Mar 05, 2021 09:00 Sodium 136 mmol/L Potassium 4.3 mmol/L Chloride 101 mmol/L CO2 24 mmol/L Anion Gap 15.3 BUN 18 mg/dL Creatinine 0.6 mg/dL Cr Clearance (Est) 163.8400 mL/min eGFR 138.9 mL/min Glucose 142 mg/dL Osmolality - Calculated 286 mOsm/kg Calcium 8.7 mg/dL Protein, Total 6.4 g/dL Albumin 3.7 g/dL Globulin 2.7 g/dL Bilirubin, Total 0.2 mg/dL ALT (SGPT) 15 U/L AST (SGOT) 17 U/L Alkaline Phosphatase 254 IU/L WBC 4.3 10 3/uL Manual Segs % 69 % Manual Bands % 15.0 % RBC 2.93 10 6/uL HGB 8.5 g/dL Manual Lymphs % 10 % Atypical Lymphs % 1.0 % HCT 26.8 % MCV 91.5 fl Total Cells Counted 100 Manual Monos % 3.0 % MCH 29.0 pg Manual Eos % 0 % MCHC 31.7 g/dL Manual Basos % 0.0 % RDW 22.5 % Metamyelocytes % 1.0 % Platelet Count 287 10 3/cmm MPV 9.1 fL Myelocytes % 1.0 % CBC Slide Review Slide Review Perform Anisocytosis 2+ Poikilocytosis 2+ Platelet Estimate Normal Manual Segs Abs 3.0 10/cmm Manual Bands Abs 0.6 10 3/cmm Manual Neutrophils Abs 3.6 10 3/cmm Manual Lymphocytes Abs 0.5 10 3/cmm Manual Monocytes Abs 0.1 10 3/cmm Manual Eosinophils Abs 0.0 10 3/cmm Manual Basophils Abs 0.0 10 3/cmm Test performed on Feb 11, 2021 13:34 Macrocytosis 1+ Neutrophils 4.92 10 3/uL Lymphocytes 0.6 10 3/uL Monocytes 0.4 10 3/uL Ovalocytes Trace Eosinophils 0.0 10 3/uL Basophils 0.0 10 3/uL Schistocytes Trace Neutrophil % 76.3 % Lymphocyte % 9.5 % Monocyte % 6.4 % Eosinophil % 0.0 % Basophils % 0.5 % NRBC % 1.1 % Impression: 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 CT PET scan done on September 11, 2020 at [place] shows mild thickening of the distal thoracic esophagus extending into gastric cardia with FDG uptake 21.2, Multiple hypermetabolic hepatic lesions largest is 3.3 x 3.1 cm in hepatic segment 7 SUV 11.1 Status post radiation therapy to C5 which he completed on November 17, 2020 Starting on weekly carboplatin/Taxol on December 04, 2020 Hypermetabolic lymphadenopathy within the gastrohepatic and retroperitoneal station, and para-aortic. There are hypermetabolic lytic lesion centered in C5 vertebral body, and left L2 pedicle, and anterior right fourth rib. 2 . 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 A reactive process cannot be entirely excluded. 3. Rheumatoid arthritis diagnosed in 2003 on prednisone, HCQ, methotrexate, Methotrexate discontinued on December 16, 2020 due to progressive leukopenia while on chemotherapy Bilateral subaxillary skin lesion questionable etiology, was referred to Dr. haley, whipped topping mixer in [facility], patient underwent skin biopsy from left subaxillary area, as per patient it shows chronic inflammation and now being treated with topical agent Status post radiation therapy to C5 , Completed in December 2020 Started on palliative chemotherapy with carboplatin/Taxol on December 04, 2020 CT PET scan finding which Was done on January 31, 2021 showed 3.2 cm distal esophageal thickening with SUV of 9.2, compared to 21.[address] PET scan done at [place] on September 11, 2020 malignant mediastinal and upper abdominal lymphadenopathy which was seen on previous CT PET scan and multiple hepatic lesions, improvement now SUV of 7 compared to 11 previously and many of the hepatic lesion shows no FDG activity. No new bony lesion but persistent right pubic bone, left L2 pedicle, anterior right fourth rib lesion Plan: Discussed with patient regarding his labs white blood count 4.3 hemoglobin 8.5 g compared to 9.2 previous hematocrit 26.8 platelets 287,000 CMP within normal limits Clinically, patient is doing well with no new signs symptom suggestive of disease progression, tolerating systemic therapy with carboplatin/Taxol well, will proceed with cycle number 5-day 1 with carboplatin/Taxol today and then he will return to clinic in 1 week with CBC CMP if reasonable for next cycle of chemo As far as anemia is concerned, could be multifactorial, will repeat his iron studies and B12 folic acid if low, will consider supplement otherwise monitor and if hemoglobin less than 8 g, consider blood transfusion. Signed By: Asaf Ramachandran M.D. <<Signature on File>>
[2021-03-11 13:59] LABS: Basophils % 0.4 %; Hematocrit 28.8 % (42.0-52.0); Hemoglobin 8.9 g/dL (11.7-16.6); Lymphocytes # 0.6 10^3/uL (0.8-4.8); Lymphocytes % 20.8 %; Mean Corpuscular HGB Conc 30.9 g/dL (30.0-36.0); Mean Corpuscular Hemoglobin 29.1 pg (28.0-34.0); Mean Corpuscular Volume 94.1 fl (80-94); Mean Platelet Volume 9.2 fL (7.4-10.4); Monocytes # 0.2 10^3/uL (0.2-0.9); Monocytes % 6.1 %; Neutrophils # 1.99 10^3/uL (1.8-7.7); Neutrophils % 71.3 %; Nucleated Red Blood Cells % 0 %; Platelet Count 269 10^3/cmm (130-400); Red Blood Count 3.06 10^6/uL (4.1-5.3); Red Cell Distribution Width 22.8 % (12.1-15.1); White Blood Count 2.8 10^3/uL (4.0-10.0)
[2021-03-11 14:41] LABS: Alanine Aminotransferase 17 U/L (0-41); Albumin Level 3.7 g/dL (3.5-5.2); Alkaline Phosphatase 176 IU/L (40-130); Anion Gap 17.5 (5-19); Aspartate Amino Transferase 20 U/L (0-40); Blood Urea Nitrogen 12 mg/dL (6-20); Carbon Dioxide 20 mmol/L (22-29); Chloride 100 mmol/L (98-107); Ferritin 551 ng/mL (30-400); Globulin 2.6 g/dL (1.3-4.6); Glomerular Filtration Rate 116.2 mL/min (90-130); Glucose 177 mg/dL (65-115); Iron 21 ug/dL (59-158); Osmolality Calculated 280 mOsm/kg (285-295); Potassium 4.5 mmol/L (3.5-5.1); Sodium 133 mmol/L (136-145); Total Bilirubin 0.2 mg/dL (0.15-1.2); Total Iron Binding Capacity 210 mcg/dl; Total Protein 6.3 g/dL (6.6-8.7); Unsaturated Iron Binding 189 ug/dL (112-347)
[2021-03-11 14:53] LABS: Vitamin B12 1032 pg/mL (232-1245)
[2021-03-12] MEDS: sodium chloride 0.9% 250 ML 75 ML IV (10:00)
[2021-03-12] MEDS: famotidine 20 mg/2 mL INJ IVP (10:00)
[2021-03-12] MEDS: diphenhydrAMINE 50 mg/mL SDV 1mL 25 MG IVP (10:01)
[2021-03-12] MEDS: palonosetron 0.25 mg/5 mL SDV IVP (10:02)
[2021-03-12] MEDS: fosaprepitant 150 MG in sodium chloride 0.9% 150 ML 300 MG IV (10:18)
[2021-03-12] MEDS: ferric carboxy (IVPB) 750 MG in sodium chloride 0.9% (100 ml) 100 ML 460 MG IV (13:23)
--- NOTE | 2021-03-13 13:03 | ONC FU_ITS ---
Dr. Ramachandran follow up note Patient: Maximino Sandoval Unit #: [id number]: [id number] Dicatated By: Asaf Ramachandran M.D.Date of Visit:Mar 12, 2021 Onc Med Follow-up/Prog Note History of Present Illness: Mr. 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 Mr. Sandoval was started on methotrexate and prednisone on April 27, 2020 for the T???LGL. He had abdominal ultrasound performed on August 01, 2020 which reported a normal spleen size. He has been treated for the RA for some time with prednisone Plaquenil and methotrexate. He presented to his PCP with new onset dysphagia and anemia. He did have a EGD on 08/14/2020 which reported at 35 cm from the incisors esophageal thickening, friable, and easily bleeding. The EGD pathology showed moderately poorly differentiated invasive adenocarcinoma. A CT chest abdomen pelvis was obtained on 08/14/2020 which reported diffuse circumferential distal esophageal/GE J thickening, few enlarged paraesophageal lymph nodes largest 1.1 cm, slightly enlarged celiac and quinton hepatis lymph nodes sizes 1.1 to 1.2 cm and a subcentimeter lung nodule left upper lobe and left lower lobe less than 5 mm. He had staging PET/CT on 09/11/2020 which reported marked thickening of the distal thoracic esophagus extending into the gastric cardia with marked FDG uptake at 221.2 SUV. There were multiple hypermetabolic hepatic lesions. The largest of which has a vague hypoattenuating CT correlate; this was difficult to measure but is approximately 3.3 x 3.1 cm with an hepatic segment 7/caudate bridge (SUV max of 11.1). There was hypermetabolic lymphadenopathy within the gastric hepatic and retroperitoneal stations for example 1.3 cm gastric hepatic node SUV 3.8 and an 8 mm retrocaval node maximum SUV 4.8. There was an 8 mm para-aortic node with a maximal SUV of 3.1. There were hypermetabolic lesions centered in the C5 vertebral body and the left L2 pedicle. There was additional hypermetabolic focus in the anterior right fourth rib but did not have definite CT correlate. The SUV was 5.78. Predominately symmetric FDG uptake about the hips within the bilateral gluteal muscles, bilateral iliopsoas and left tensor fossa lilliam muscles. MRI scan of the C-spine done on October 21, 2020 showed enhancing metastatic lesion at the C5 vertebral body with surrounding paravertebral soft tissue enhancement. 10 ventral epidural enhancement with mild central canal stenosis and moderate multilevel bony foraminal narrowing worse at C3-7 was seen at [facility] by Jerri Layne???ANGELIA flores and Dr. Valdo Osorio on 09/08/2020. Their notes indicate they discussed with Mr. Sandoval that he appears to have locally advanced disease with lymph node involvement. Further recommendation was treatment with chemotherapy carboplatin paclitaxel in combination with radiation. Depending on treatment response he may require surgery. If he is found to have stage IV disease by his staging PET/CT imaging would be systemic chemotherapy alone. He was recommended to have port placement at that time as well. In regards to his LGL he was to continue to follow with and continue on low-dose prednisone and methotrexate as he had adequate control since April 2019. He is to continue following with rheumatology for his RA and may continue using methotrexate, prednisone and hydroxychloroquine. Mr. Sandoval was referred back to us and had follow-up on 09/19/2020. 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 He was also having progressive dysphagia at that time. recommended obtaining guardant 360 testing and placement of Port-A-Cath. He also recommended to get biphosphonate to prevent skeletal related complications. Mr. Sandoval was also referred for MRI scanning of the C-spine with attention to C5 as he was having more pain. Mr. Sandoval was referred to Dr. Banks for placement of a PowerPort. He had placement of the port into the left subclavian vein which on September 29, 2020. He was then seen on 10/24/2020 and the Guardiant 360 results were reviewed. His HER-2/stephanie results were negative, MSI/MMR intact with alteration at CESARIO gene thus he may be responsive to PARP inhibitors. (Guardant 360 showed tumor mutational burden 14.35 e.g. more than 10, pembrolizumab is indicated, and other abnormality including CESARIO W266, CESARIO I3765A, CESARIO splice site indel, FDA approved therapy include olaparib, niraparib, rucaparib, talazoparib can be considered). He was having moderate to severe distress due to left anterior chest wall pain and was referred to the emergency room for further evaluation. He was also referred for PEG tube placement. He had PEG tube placement per Dr. Banks on 11/12/2020. He had confirmation of C5 involvement per MRI of the scan of the C-spine although he was not symptomatic. He was referred to Dr. Connell in [facility] for consideration of palliative radiotherapy. He did see Dr. Connell on 10/28/2020. At that time he recommended palliative radiotherapy to the C5 vertebral body. Mr. Sandoval completed palliative radiotherapy for C5 involvement of his metastatic esophageal cancer on November 17, 2020. He had a prescribed dose of 30 Edmonds which delivered in 10 fractions over 15 elapsed days. PMH: Skin biopsy from left subaxillary area done on 02/05/2019 showed chronic inflammation now being treated with topical agent per Dr. Haley house steward/stewardess in [facility]. Started on weekly carboplatin/Taxol on December 04, 2020 Mr. Sandoval was started on his first cycle of carboplatin paclitaxel on December 04, 2020. He was able to complete day 8 (reidentified as cycle 2 day 1 due to the interim between day 1 & 8) on December 22, 2020. He did have chemotherapy-induced neutropenia on day 8 with an ANC of 1030. He did receive growth factor support with Neupogen. He required growth factor support with Neupogen again and his counts have held well Follow-up CT PET scan after 3 cycles done on January 31, 2021 showed 3.2 cm distal esophageal thickening with SUV of 9.2 compared to 21.[address] PET scan done at [place] on September 11, 2020. And FDG positive mediastinal lymph nodes are consistent with local metastatic disease dominant node in the superior right lateral tracheal node measuring 1.9 cm with SUV of 5.7. Other nodes in the right paratracheal territory are less FDG avid. Multifocal hepatic metastatic disease is present in the right and left lobes. Several hepatic hypodensities are minimally FDG positive consistent with previously treated lesions. However, several FDG avid lesions have SUV up to 7.0 indicating active lesions. A right retroperitoneal aortocaval node is FDG positive. Multifocal osseous metastatic disease is present in the left L2 pedicle, right pubic bone, anterior right fourth rib. Came for follow-up, denies any specific complaints, no fever chills, no nausea vomiting, no diarrhea constipation, no melena or hematochezia, dysphagia continue to improve.Complaining of mild laryngitis and off and on constantino feeling in his mouth Tolerating systemic therapy with carboplatin/Taxol well Medications: Aspirin 1 (81 mg) Tablet Oral daily, buPROPion HCl ER (SR) 1 (150 mg) Tablet SR 12 HR Oral daily, clonazePAM 1 (2 mg) Tablet Oral daily, Cymbalta 1 Capsule (of 100 mg) Capsule Delayed Release Particles Oral daily, Esomeprazole Magnesium 1 (40 mg) Capsule Delayed Release Oral daily, Ferrous Gluconate 1 (324 (37.5 fe) mg) Tablet Oral b.i.d., Ferrous Sulfate 1 (325 (65 fe) mg) Tablet Oral daily, Fish Oil 1 (1200 mg) Capsule Oral daily, Folic Acid 1 (1 mg) Tablet Oral daily, Gabapentin 1 (800 mg) Tablet Oral t.i.d., glipiZIDE ER 1 (5 mg) Tablet SR 24 HR Oral daily, Hydroxychloroquine Sulfate 2 Tablet (of 200 mg) Oral daily, Irbesartan 1 (75 mg) Tablet Oral daily, Lovastatin 1 (20 mg) Tablet Oral daily, Magnesium Oxide -Mg Supplement 1 (250 mg) Tablet Oral b.i.d., Methotrexate (2.5 mg) Tablet Oral Take as Directed, Nitroglycerin 1 (0.4 mg) Tablet, sublingual Sublingual PRN, OxyCODONE HCl 1 - 2 (30 mg) Tablet Oral q 4 hours PRN, Pantoprazole Sodium 1 (40 mg) Tablet, enteric coated Oral daily, PARoxetine HCl 1 (20 mg) Tablet Oral b.i.d., PredniSONE 1 Tablet (of 5 mg) Oral daily, Sildenafil Citrate 1 (25 mg) Tablet Oral PRN, tiZANidine HCl 1 Capsule (of 4 mg) Tablet Oral q 12 hours PRN Allergies: Lisinopril Review of Systems: Review of Systems is not available for this patient. Vital Signs: Performed on Mar 12, 2021 11:23 Height - 72.00 in Weight - 180.2 lbs (LOW) BSA - 2.04 sq.m BMI - 24.44 Temperature - 98.7 F Pulse - 86 /min Respiration - 18 /min BP - 102/67 mm(hg) O2 Sat - 99 % Pain - 0 Fatigue - 0 Performance Status: 1 - No physically strenuous activity, but ambulatory and able to carry out light or sedentary work (e.g. office work, light house work). (ECOG) Physical Examination: ENMT - No mouth sores, but mild thrush, no jaundice, Respiratory - Lungs are clear to auscultation, Cardiovascular - Regular rate and rhythm of heart, Abdomen - Soft, bowel sounds present, Extremities - No visible edema. Lab/Imaging: Test performed on Mar 11, 2021 13:04 Ferritin 551 ng/mL Iron 21 mcg/dL Sodium 133 mmol/L Vitamin B12 1032 pg/mL Iron Binding Capacity (TIBC) 210 mcg/dl Potassium 4.5 mmol/L % Iron Saturation 10.0 % Chloride 100 mmol/L CO2 20 mmol/L UIBC 189 mcg/dL Anion Gap 17.5 BUN 12 mg/dL Creatinine 0.7 mg/dL Cr Clearance (Est) 140.4400 mL/min eGFR 116.2 mL/min Glucose 177 mg/dL Osmolality - Calculated 280 mOsm/kg Calcium 8.0 mg/dL Protein, Total 6.3 g/dL Albumin 3.7 g/dL Globulin 2.6 g/dL Bilirubin, Total 0.2 mg/dL ALT (SGPT) 17 U/L AST (SGOT) 20 U/L Alkaline Phosphatase 176 IU/L WBC 2.8 10 3/uL RBC 3.06 10 6/uL HGB 8.9 g/dL HCT 28.8 % MCV 94.1 fl MCH 29.1 pg MCHC 30.9 g/dL RDW 22.8 % Platelet Count 269 10 3/cmm MPV 9.2 fL Neutrophils 1.99 10 3/uL Lymphocytes 0.6 10 3/uL Monocytes 0.2 10 3/uL Eosinophils 0.0 10 3/uL Basophils 0.0 10 3/uL Neutrophil % 71.3 % Lymphocyte % 20.8 % Monocyte % 6.1 % Eosinophil % 0.0 % Basophils % 0.4 % NRBC % 0 % Test performed on Mar 05, 2021 09:00 Manual Segs % 69 % Manual Bands % 15.0 % Manual Lymphs % 10 % Atypical Lymphs % 1.0 % Total Cells Counted 100 Manual Monos % 3.0 % Manual Eos % 0 % Manual Basos % 0.0 % Metamyelocytes % 1.0 % Myelocytes % 1.0 % CBC Slide Review Slide Review Perform Anisocytosis 2+ Poikilocytosis 2+ Platelet Estimate Normal Manual Segs Abs 3.0 10/cmm Manual Bands Abs 0.6 10 3/cmm Manual Neutrophils Abs 3.6 10 3/cmm Manual Lymphocytes Abs 0.5 10 3/cmm Manual Monocytes Abs 0.1 10 3/cmm Manual Eosinophils Abs 0.0 10 3/cmm Manual Basophils Abs 0.0 10 3/cmm Test performed on Feb 11, 2021 13:34 Macrocytosis 1+ Ovalocytes Trace Schistocytes Trace Impression: 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 CT PET scan done on September 11, 2020 at [place] shows mild thickening of the distal thoracic esophagus extending into gastric cardia with FDG uptake 21.2, Multiple hypermetabolic hepatic lesions largest is 3.3 x 3.1 cm in hepatic segment 7 SUV 11.1 Status post radiation therapy to C5 which he completed on November 17, 2020 Starting on weekly carboplatin/Taxol on December 04, 2020 Hypermetabolic lymphadenopathy within the gastrohepatic and retroperitoneal station, and para-aortic. There are hypermetabolic lytic lesion centered in C5 vertebral body, and left L2 pedicle, and anterior right fourth rib. 2 . 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 A reactive process cannot be entirely excluded. 3. Rheumatoid arthritis diagnosed in 2004 on prednisone, HCQ, methotrexate, Methotrexate discontinued on December 16, 2020 due to progressive leukopenia while on chemotherapy Bilateral subaxillary skin lesion questionable etiology, was referred to Dr. haley, house steward/stewardess in [facility], patient underwent skin biopsy from left subaxillary area, as per patient it shows chronic inflammation and now being treated with topical agent Status post radiation therapy to C5 , Completed in December 2020 Started on palliative chemotherapy with carboplatin/Taxol on December 04, 2020 CT PET scan finding which Was done on January 31, 2021 showed 3.2 cm distal esophageal thickening with SUV of 9.2, compared to 21.[address] PET scan done at [place] on September 11, 2020 malignant mediastinal and upper abdominal lymphadenopathy which was seen on previous CT PET scan and multiple hepatic lesions, improvement now SUV of 7 compared to 11 previously and many of the hepatic lesion shows no FDG activity. No new bony lesion but persistent right pubic bone, left L2 pedicle, anterior right fourth rib lesion Plan: Discussed with patient regarding his labs white blood count 2.8 hemoglobin 8.9 g hematocrit 28.8 platelets 269,000 CMP within normal limit except glucose 177 sodium 133 and iron studies shows iron 10%, ferritin 551 iron 21 B12 1032 Clinically, patient is doing reasonably well, tolerating palliative therapy with weekly carboplatin/Taxol well but with expected side effect e.g. progressive leukopenia, will proceed with this cycle number 5-day 8 chemotherapy with carboplatin/Taxol today and followed by [facility] to prevent chemotherapy-induced neutropenia/leukopenia then he will return to clinic in 2 weeks with CBC CMP As far as mild hoarseness of voice is concerned and constantino feeling in his mouth, on exam looks like he has oral thrush, will consider nystatin. As far as iron deficiency anemia is concerned, patient is on oral iron, but no improvement in iron stores as well as anemia, will consider parenteral iron as he may have underlying iron malabsorption. So we will obtain approval from his insurance regarding Injectafer 750 mg IV weekly x2. Signed By: Barjinder Ramachandran, M.D. <<Signature on File>>
[2021-03-19] MEDS: ferric carboxy (IVPB) 750 MG in sodium chloride 0.9% (100 ml) 100 ML 460 MG IV (15:00)
[2021-03-19] MEDS: denosumab 120 mg SDV SUBCUT (15:20)
[2021-03-25 14:52] LABS: Basophils % 0.4 %; Hematocrit 28.3 % (42.0-52.0); Hemoglobin 8.9 g/dL (11.7-16.6); Lymphocytes # 0.4 10^3/uL (0.8-4.8); Lymphocytes % 7.1 %; Mean Corpuscular HGB Conc 31.4 g/dL (30.0-36.0); Mean Corpuscular Hemoglobin 30.2 pg (28.0-34.0); Mean Corpuscular Volume 95.9 fl (80-94); Mean Platelet Volume 9.1 fL (7.4-10.4); Monocytes # 0.2 10^3/uL (0.2-0.9); Monocytes % 4.4 %; Neutrophils # 4.31 10^3/uL (1.8-7.7); Neutrophils % 87.1 %; Nucleated Red Blood Cells % 0 %; Platelet Count 216 10^3/cmm (130-400); Red Blood Count 2.95 10^6/uL (4.1-5.3)
[2021-03-25 15:22] LABS: Alanine Aminotransferase 13 U/L (0-41); Albumin Level 3.6 g/dL (3.5-5.2); Alkaline Phosphatase 107 IU/L (40-130); Anion Gap 13.2 (5-19); Aspartate Amino Transferase 16 U/L (0-40); Blood Urea Nitrogen 15 mg/dL (6-20); Calcium 7.5 mg/dL (8.5-10.5); Carbon Dioxide 21 mmol/L (22-29); Chloride 103 mmol/L (98-107); Globulin 2.6 g/dL (1.3-4.6); Glomerular Filtration Rate 116.2 mL/min (90-130); Glucose 201 mg/dL (65-115); Osmolality Calculated 283 mOsm/kg (285-295); Potassium 4.2 mmol/L (3.5-5.1); Sodium 133 mmol/L (136-145); Total Bilirubin 0.3 mg/dL (0.15-1.2); Total Protein 6.2 g/dL (6.6-8.7)
[2021-03-26] MEDS: famotidine 20 mg/2 mL INJ IVP (10:18)
[2021-03-26] MEDS: diphenhydrAMINE 50 mg/mL SDV 1mL 25 MG IVP (10:19)
[2021-03-26] MEDS: sodium chloride 0.9% 250 ML 75 ML IV (10:19)
[2021-03-26] MEDS: palonosetron 0.25 mg/5 mL SDV IV (10:20)
[2021-03-26] MEDS: fosaprepitant 150 MG in sodium chloride 0.9% 150 ML 300 MG IV (10:42)
--- NOTE | 2021-03-26 14:16 | XR_ITS ---
WS: [id number] Thoracic spine, 4 views, 03/26/2021 Clinical Data: MID BACK PAIN Comparison: None. Findings: No compression fractures are seen. The disc heights are normal. No metastatic lesions are seen in the thoracic vertebral bodies. The paravertebral regions show widen ing on the left which could represent metastatic disease.. There is a left subclavian catheter in goo d position. There is bilateral apical pleural thickening. XR/XR thoracic spine 3V* [id number] Impression: 1. Negative for bony lesions of the thoracic spine. 2. Mediastinal thickening and widening especially on the left which could indic ate metastatic disease. 3. Bilateral apical pleural thickening which could represent fluid.
--- NOTE | 2021-03-27 13:12 | ONC FU_ITS ---
Dr. Ramachandran follow up note Patient: Maximino Sandoval Unit #: [id number]: 1965 Dicatated By: Asaf Ramachandran M.D.Date of Visit:Mar 26, 2021 Onc Med Follow-up/Prog Note History of Present Illness: Mr. 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 Mr. Sandoval was started on methotrexate and prednisone on April 27, 2020 for the T???LGL. He had abdominal ultrasound performed on August 01, 2020 which reported a normal spleen size. He has been treated for the RA for some time with prednisone Plaquenil and methotrexate. He presented to his PCP with new onset dysphagia and anemia. He did have a EGD on 08/14/2020 which reported at 35 cm from the incisors esophageal thickening, friable, and easily bleeding. The EGD pathology showed moderately poorly differentiated invasive adenocarcinoma. A CT chest abdomen pelvis was obtained on 08/14/2020 which reported diffuse circumferential distal esophageal/GE J thickening, few enlarged paraesophageal lymph nodes largest 1.1 cm, slightly enlarged celiac and quinton hepatis lymph nodes sizes 1.1 to 1.2 cm and a subcentimeter lung nodule left upper lobe and left lower lobe less than 5 mm. He had staging PET/CT on 09/11/2020 which reported marked thickening of the distal thoracic esophagus extending into the gastric cardia with marked FDG uptake at 221.2 SUV. There were multiple hypermetabolic hepatic lesions. The largest of which has a vague hypoattenuating CT correlate; this was difficult to measure but is approximately 3.3 x 3.1 cm with an hepatic segment 7/caudate bridge (SUV max of 11.1). There was hypermetabolic lymphadenopathy within the gastric hepatic and retroperitoneal stations for example 1.3 cm gastric hepatic node SUV 3.8 and an 8 mm retrocaval node maximum SUV 4.8. There was an 8 mm para-aortic node with a maximal SUV of 3.1. There were hypermetabolic lesions centered in the C5 vertebral body and the left L2 pedicle. There was additional hypermetabolic focus in the anterior right fourth rib but did not have definite CT correlate. The SUV was 5.78. Predominately symmetric FDG uptake about the hips within the bilateral gluteal muscles, bilateral iliopsoas and left tensor fossa lilliam muscles. MRI scan of the C-spine done on October 21, 2020 showed enhancing metastatic lesion at the C5 vertebral body with surrounding paravertebral soft tissue enhancement. 10 ventral epidural enhancement with mild central canal stenosis and moderate multilevel bony foraminal narrowing worse at C3-7 was seen at [facility] by Jerri Layne???ANGELIA flores and Dr. Valdo Osorio on 09/08/2020. Their notes indicate they discussed with Mr. Sandoval that he appears to have locally advanced disease with lymph node involvement. Further recommendation was treatment with chemotherapy carboplatin paclitaxel in combination with radiation. Depending on treatment response he may require surgery. If he is found to have stage IV disease by his staging PET/CT imaging would be systemic chemotherapy alone. He was recommended to have port placement at that time as well. In regards to his LGL he was to continue to follow with and continue on low-dose prednisone and methotrexate as he had adequate control since April 2019. He is to continue following with rheumatology for his RA and may continue using methotrexate, prednisone and hydroxychloroquine. Mr. Sandoval was referred back to us and had follow-up on 09/19/2020. 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 He was also having progressive dysphagia at that time. recommended obtaining guardant 360 testing and placement of Port-A-Cath. He also recommended to get biphosphonate to prevent skeletal related complications. Mr. Sandoval was also referred for MRI scanning of the C-spine with attention to C5 as he was having more pain. Mr. Sandoval was referred to Dr. Banks for placement of a PowerPort. He had placement of the port into the left subclavian vein which on September 29, 2020. He was then seen on 10/24/2020 and the Guardiant 360 results were reviewed. His HER-2/stephanie results were negative, MSI/MMR intact with alteration at CESARIO gene thus he may be responsive to PARP inhibitors. (Guardant 360 showed tumor mutational burden 14.35 e.g. more than 10, pembrolizumab is indicated, and other abnormality including CESARIO W266, CESARIO R1439D, CESARIO splice site indel, FDA approved therapy include olaparib, niraparib, rucaparib, talazoparib can be considered). He was having moderate to severe distress due to left anterior chest wall pain and was referred to the emergency room for further evaluation. He was also referred for PEG tube placement. He had PEG tube placement per Dr. Banks on 11/12/2020. He had confirmation of C5 involvement per MRI of the scan of the C-spine although he was not symptomatic. He was referred to Dr. Connell in [facility] for consideration of palliative radiotherapy. He did see Dr. Connell on 10/28/2020. At that time he recommended palliative radiotherapy to the C5 vertebral body. Mr. Sandoval completed palliative radiotherapy for C5 involvement of his metastatic esophageal cancer on November 17, 2020. He had a prescribed dose of 30 Edmonds which delivered in 10 fractions over 15 elapsed days. PMH: Skin biopsy from left subaxillary area done on 02/05/2019 showed chronic inflammation now being treated with topical agent per Dr. Haley [facility] in [facility]. Started on weekly carboplatin/Taxol on December 04, 2020 Mr. Sandoval was started on his first cycle of carboplatin paclitaxel on December 04, 2020. He was able to complete day 8 (reidentified as cycle 2 day 1 due to the interim between day 1 & 8) on December 22, 2020. He did have chemotherapy-induced neutropenia on day 8 with an ANC of 1030. He did receive growth factor support with Neupogen. He required growth factor support with Neupogen again and his counts have held well Follow-up CT PET scan after 3 cycles done on January 31, 2021 showed 3.2 cm distal esophageal thickening with SUV of 9.2 compared to 21.[address] PET scan done at [place] on September 11, 2020. And FDG positive mediastinal lymph nodes are consistent with local metastatic disease dominant node in the superior right lateral tracheal node measuring 1.9 cm with SUV of 5.7. Other nodes in the right paratracheal territory are less FDG avid. Multifocal hepatic metastatic disease is present in the right and left lobes. Several hepatic hypodensities are minimally FDG positive consistent with previously treated lesions. However, several FDG avid lesions have SUV up to 7.0 indicating active lesions. A right retroperitoneal aortocaval node is FDG positive. Multifocal osseous metastatic disease is present in the left L2 pedicle, right pubic bone, anterior right fourth rib. Came for follow-up, complaining of mid upper back pain as per patient about 4-5 days ago when he woke up in the morning he felt stiffness in upper back going towards the neck area but no fever chills, no nausea or vomiting, no sore throat, no headaches or blurred vision or double vision he denies any trauma to his back denies any heavy weight lifting, denies any sudden movements, denies any numbness to the lower extremities or upper extremities, pain is nonradiating and somewhat tender, sitting straight and still helps. No fever chills, no nausea or vomiting, no diarrhea or constipation, no focal weakness no melena or hematochezia otherwise tolerating palliative therapy with carboplatin/Taxol well Medications: Aspirin 1 (81 mg) Tablet Oral daily, buPROPion HCl ER (SR) 1 (150 mg) Tablet SR 12 HR Oral daily, clonazePAM 1 (2 mg) Tablet Oral daily, Cymbalta 1 Capsule (of 100 mg) Capsule Delayed Release Particles Oral daily, Esomeprazole Magnesium 1 (40 mg) Capsule Delayed Release Oral daily, Ferrous Gluconate 1 (324 (37.5 fe) mg) Tablet Oral b.i.d., Ferrous Sulfate 1 (325 (65 fe) mg) Tablet Oral daily, Fish Oil 1 (1200 mg) Capsule Oral daily, Folic Acid 1 (1 mg) Tablet Oral daily, Gabapentin 1 (800 mg) Tablet Oral t.i.d., glipiZIDE ER 1 (5 mg) Tablet SR 24 HR Oral daily, Hydroxychloroquine Sulfate 2 Tablet (of 200 mg) Oral daily, Irbesartan 1 (75 mg) Tablet Oral daily, Lovastatin 1 (20 mg) Tablet Oral daily, Magnesium Oxide -Mg Supplement 1 (250 mg) Tablet Oral b.i.d., Methotrexate (2.5 mg) Tablet Oral Take as Directed, Nitroglycerin 1 (0.4 mg) Tablet, sublingual Sublingual PRN, OxyCODONE HCl 1 - 2 (30 mg) Tablet Oral q 4 hours PRN, Pantoprazole Sodium 1 (40 mg) Tablet, enteric coated Oral daily, PARoxetine HCl 1 (20 mg) Tablet Oral b.i.d., PredniSONE 1 Tablet (of 5 mg) Oral daily, Sildenafil Citrate 1 (25 mg) Tablet Oral PRN, tiZANidine HCl 1 Capsule (of 4 mg) Tablet Oral q 12 hours PRN Allergies: Lisinopril Review of Systems: Review of Systems is not available for this patient. Vital Signs: Performed on Mar 26, 2021 09:35 Height - 72.00 in Weight - 183.2 lbs (HIGH) BSA - 2.05 sq.m BMI - 24.85 Temperature - 97.3 F (LOW) Pulse - 79 /min Respiration - 18 /min BP - 94/61 mm(hg) O2 Sat - 98 % Pain - 0 Performance Status: 0 - Fully active, able to carry on all predisease activities without restrictions. (ECOG) Physical Examination: ENMT - No mouth sores, no thrush, no jaundice, Respiratory - Lungs are clear to auscultation, Mild tenderness in the mid upper back between the scapula, no overlying skin changes or swelling noticed, Cardiovascular - Regular rate and rhythm of heart, Abdomen - Soft, bowel sounds present, Extremities - No visible edema. Lab/Imaging: Test performed on Mar 25, 2021 14:25 Sodium 133 mmol/L Potassium 4.2 mmol/L Chloride 103 mmol/L CO2 21 mmol/L Anion Gap 13.2 BUN 15 mg/dL Creatinine 0.7 mg/dL Cr Clearance (Est) 140.4400 mL/min eGFR 116.2 mL/min Glucose 201 mg/dL Osmolality - Calculated 283 mOsm/kg Calcium 7.5 mg/dL Protein, Total 6.2 g/dL Albumin 3.6 g/dL Globulin 2.6 g/dL Bilirubin, Total 0.3 mg/dL ALT (SGPT) 13 U/L AST (SGOT) 16 U/L Alkaline Phosphatase 107 IU/L WBC 5.0 10 3/uL RBC 2.95 10 6/uL HGB 8.9 g/dL HCT 28.3 % MCV 95.9 fl MCH 30.2 pg MCHC 31.4 g/dL RDW 22.0 % Platelet Count 216 10 3/cmm MPV 9.1 fL Neutrophils 4.31 10 3/uL Lymphocytes 0.4 10 3/uL Monocytes 0.2 10 3/uL Eosinophils 0.0 10 3/uL Basophils 0.0 10 3/uL Neutrophil % 87.1 % Lymphocyte % 7.1 % Monocyte % 4.4 % Eosinophil % 0.0 % Basophils % 0.4 % NRBC % 0 % Test performed on Mar 11, 2021 13:04 Ferritin 551 ng/mL Iron 21 mcg/dL Vitamin B12 1032 pg/mL Iron Binding Capacity (TIBC) 210 mcg/dl % Iron Saturation 10.0 % UIBC 189 mcg/dL Test performed on Mar 05, 2021 09:00 Manual Segs % 69 % Manual Bands % 15.0 % Manual Lymphs % 10 % Atypical Lymphs % 1.0 % Total Cells Counted 100 Manual Monos % 3.0 % Manual Eos % 0 % Manual Basos % 0.0 % Metamyelocytes % 1.0 % Myelocytes % 1.0 % CBC Slide Review Slide Review Perform Anisocytosis 2+ Poikilocytosis 2+ Platelet Estimate Normal Manual Segs Abs 3.0 10/cmm Manual Bands Abs 0.6 10 3/cmm Manual Neutrophils Abs 3.6 10 3/cmm Manual Lymphocytes Abs 0.5 10 3/cmm Manual Monocytes Abs 0.1 10 3/cmm Manual Eosinophils Abs 0.0 10 3/cmm Manual Basophils Abs 0.0 10 3/cmm Test performed on Feb 11, 2021 13:34 Macrocytosis 1+ Ovalocytes Trace Schistocytes Trace Impression: 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 CT PET scan done on September 11, 2020 at [place] shows mild thickening of the distal thoracic esophagus extending into gastric cardia with FDG uptake 21.2, Multiple hypermetabolic hepatic lesions largest is 3.3 x 3.1 cm in hepatic segment 7 SUV 11.1 Status post radiation therapy to C5 which he completed on November 17, 2020 Starting on weekly carboplatin/Taxol on December 04, 2020 Hypermetabolic lymphadenopathy within the gastrohepatic and retroperitoneal station, and para-aortic. There are hypermetabolic lytic lesion centered in C5 vertebral body, and left L2 pedicle, and anterior right fourth rib. 2 . 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 A reactive process cannot be entirely excluded. 3. Rheumatoid arthritis diagnosed in 2003 on prednisone, HCQ, methotrexate, Methotrexate discontinued on December 16, 2020 due to progressive leukopenia while on chemotherapy Bilateral subaxillary skin lesion questionable etiology, was referred to Dr. haley, [facility] in [facility], patient underwent skin biopsy from left subaxillary area, as per patient it shows chronic inflammation and now being treated with topical agent Status post radiation therapy to C5 , Completed in December 2020 Started on palliative chemotherapy with carboplatin/Taxol on December 04, 2020 CT PET scan finding which Was done on January 31, 2021 showed 3.2 cm distal esophageal thickening with SUV of 9.2, compared to 21.[address] PET scan done at [place] on September 11, 2020 malignant mediastinal and upper abdominal lymphadenopathy which was seen on previous CT PET scan and multiple hepatic lesions, improvement now SUV of 7 compared to 11 previously and many of the hepatic lesion shows no FDG activity. No new bony lesion but persistent right pubic bone, left L2 pedicle, anterior right fourth rib lesion Plan: Discussed with patient regarding his labs white blood count 5 hemoglobin 8.9 hematocrit 28.3 platelets 216,000 CMP within normal limit except sodium 133 glucose 201 Clinically, patient is doing reasonably well except in mild to moderate distress due to mid upper back pain, at this point we will proceed with his next scheduled dose of chemotherapy with weekly carboplatin/Taxol and also obtain plain x-ray of thoracic spine to assess any bone damage, on exam there is mild tenderness in the mid upper back area between the scapulae no overlying skin changes. As far as anemia is concerned,, now being treated with parenteral iron for iron deficiency anemia, he tolerated dose of Injectafer well. We will continue to monitor Patient will return to clinic in 1 week with CBC CMP Addendum x-ray thoracic spine done today on March 26, 2021 for mid upper back shows negative for bony lesion of thoracic spine. Mediastinal thickening with widening especially on the left which could indicate metastatic disease. Bilateral apical thickening, We will consider CT scan of chest to evaluate further Signed By: Asfa Ramachandran M.D. <<Signature on File>>
[2021-04-01 14:38] LABS: Basophils % 0.5 %; Eosinophils % 0.5 %; Hematocrit 30.7 % (42.0-52.0); Hemoglobin 9.8 g/dL (11.7-16.6); Lymphocytes # 2.2 10^3/uL (0.8-4.8); Lymphocytes % 49.3 %; Mean Corpuscular HGB Conc 31.9 g/dL (30.0-36.0); Mean Corpuscular Hemoglobin 30.7 pg (28.0-34.0); Mean Corpuscular Volume 96.2 fl (80-94); Mean Platelet Volume 8.9 fL (7.4-10.4); Monocytes # 0.6 10^3/uL (0.2-0.9); Monocytes % 14.4 %; Neutrophils # 1.51 10^3/uL (1.8-7.7); Neutrophils % 34.6 %; Nucleated Red Blood Cells % 0 %; Platelet Count 177 10^3/cmm (130-400); Red Blood Count 3.19 10^6/uL (4.1-5.3); Red Cell Distribution Width 19.9 % (12.1-15.1); White Blood Count 4.4 10^3/uL (4.0-10.0)
[2021-04-01 15:14] LABS: Alanine Aminotransferase 15 U/L (0-41); Albumin Level 3.7 g/dL (3.5-5.2); Alkaline Phosphatase 94 IU/L (40-130); Anion Gap 13.8 (5-19); Aspartate Amino Transferase 17 U/L (0-40); Blood Urea Nitrogen 20 mg/dL (6-20); Calcium 8.4 mg/dL (8.5-10.5); Carbon Dioxide 22 mmol/L (22-29); Chloride 100 mmol/L (98-107); Globulin 2.8 g/dL (1.3-4.6); Glomerular Filtration Rate 138.9 mL/min (90-130); Glucose 108 mg/dL (65-115); Osmolality Calculated 277 mOsm/kg (285-295); Potassium 3.8 mmol/L (3.5-5.1); Sodium 132 mmol/L (136-145); Total Bilirubin 0.3 mg/dL (0.15-1.2); Total Protein 6.5 g/dL (6.6-8.7)
[2021-04-02] MEDS: famotidine 20 mg/2 mL INJ IVP (10:00)
[2021-04-02] MEDS: sodium chloride 0.9% 250 ML 75 ML IV (10:00)
[2021-04-02] MEDS: diphenhydrAMINE 50 mg/mL SDV 1mL 25 MG IV (10:05)
[2021-04-02] MEDS: palonosetron 0.25 mg/5 mL SDV IV (10:18)
[2021-04-02] MEDS: fosaprepitant 150 MG in sodium chloride 0.9% 150 ML 300 MG IV (10:35)
--- NOTE | 2021-04-02 14:19 | ONC FU_ITS ---
Dr. Ramachandran follow up note Patient: Maximino Sandoval Unit #: [id number]: [id number] Dicatated By: Asaf Ramachandran M.D.Date of Visit:Apr 02, 2021 Onc Med Follow-up/Prog Note History of Present Illness: Mr. 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 Mr. Sandoval was started on methotrexate and prednisone on April 27, 2020 for the T???LGL. He had abdominal ultrasound performed on August 01, 2020 which reported a normal spleen size. He has been treated for the RA for some time with prednisone Plaquenil and methotrexate. He presented to his PCP with new onset dysphagia and anemia. He did have a EGD on 08/14/2020 which reported at 35 cm from the incisors esophageal thickening, friable, and easily bleeding. The EGD pathology showed moderately poorly differentiated invasive adenocarcinoma. A CT chest abdomen pelvis was obtained on 08/14/2020 which reported diffuse circumferential distal esophageal/GE J thickening, few enlarged paraesophageal lymph nodes largest 1.1 cm, slightly enlarged celiac and quinton hepatis lymph nodes sizes 1.1 to 1.2 cm and a subcentimeter lung nodule left upper lobe and left lower lobe less than 5 mm. He had staging PET/CT on 09/11/2020 which reported marked thickening of the distal thoracic esophagus extending into the gastric cardia with marked FDG uptake at 221.2 SUV. There were multiple hypermetabolic hepatic lesions. The largest of which has a vague hypoattenuating CT correlate; this was difficult to measure but is approximately 3.3 x 3.1 cm with an hepatic segment 7/caudate bridge (SUV max of 11.1). There was hypermetabolic lymphadenopathy within the gastric hepatic and retroperitoneal stations for example 1.3 cm gastric hepatic node SUV 3.8 and an 8 mm retrocaval node maximum SUV 4.8. There was an 8 mm para-aortic node with a maximal SUV of 3.1. There were hypermetabolic lesions centered in the C5 vertebral body and the left L2 pedicle. There was additional hypermetabolic focus in the anterior right fourth rib but did not have definite CT correlate. The SUV was 5.78. Predominately symmetric FDG uptake about the hips within the bilateral gluteal muscles, bilateral iliopsoas and left tensor fossa lilliam muscles. MRI scan of the C-spine done on October 21, 2020 showed enhancing metastatic lesion at the C5 vertebral body with surrounding paravertebral soft tissue enhancement. 10 ventral epidural enhancement with mild central canal stenosis and moderate multilevel bony foraminal narrowing worse at C3-7 was seen at [facility] by Jerri Layne???ANGELIA flores and Dr. Valdo Osorio on 09/08/2020. Their notes indicate they discussed with Mr. Sandoval that he appears to have locally advanced disease with lymph node involvement. Further recommendation was treatment with chemotherapy carboplatin paclitaxel in combination with radiation. Depending on treatment response he may require surgery. If he is found to have stage IV disease by his staging PET/CT imaging would be systemic chemotherapy alone. He was recommended to have port placement at that time as well. In regards to his LGL he was to continue to follow there and continue on low-dose prednisone and methotrexate as he had adequate control since April 2019. He is to continue following with rheumatology for his RA and may continue using methotrexate, prednisone and hydroxychloroquine. Mr. Sandoval was referred back to us and had follow-up on 09/19/2020. 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 He was also having progressive dysphagia at that time. recommended obtaining guardant 360 testing and placement of Port-A-Cath. He also recommended to get biphosphonate to prevent skeletal related complications. Mr. Sandoval was also referred for MRI scanning of the C-spine with attention to C5 as he was having more pain. Mr. Sandoval was referred to Dr. Banks for placement of a PowerPort. He had placement of the port into the left subclavian vein which on September 29, 2020. He was then seen on 10/24/2020 and the Guardiant 360 results were reviewed. His HER-2/stephanie results were negative, MSI/MMR intact with alteration at CESARIO gene thus he may be responsive to PARP inhibitors. (Guardant 360 showed tumor mutational burden 14.35 e.g. more than 10, pembrolizumab is indicated, and other abnormality including CESARIO W266, CESARIO O1455E, CESARIO splice site indel, FDA approved therapy include olaparib, niraparib, rucaparib, talazoparib can be considered). He was having moderate to severe distress due to left anterior chest wall pain and was referred to the emergency room for further evaluation. He was also referred for PEG tube placement. He had PEG tube placement per Dr. Banks on 11/12/2020. He had confirmation of C5 involvement per MRI of the scan of the C-spine although he was not symptomatic. He was referred to Dr. Connell in [facility] for consideration of palliative radiotherapy. He did see Dr. Connell on 10/28/2020. At that time he recommended palliative radiotherapy to the C5 vertebral body. Mr. Sandoval completed palliative radiotherapy for C5 involvement of his metastatic esophageal cancer on November 17, 2020. He had a prescribed dose of 30 Edmonds which delivered in 10 fractions over 15 elapsed days. PMH: Skin biopsy from left subaxillary area done on 02/05/2019 showed chronic inflammation now being treated with topical agent per Dr. Haley yoga teacher in [facility]. Started on weekly carboplatin/Taxol on December 04, 2020 Mr. Sandoval was started on his first cycle of carboplatin paclitaxel on December 04, 2020. He was able to complete day 8 (reidentified as cycle 2 day 1 due to the interim between day 1 & 8) on December 22, 2020. He did have chemotherapy-induced neutropenia on day 8 with an ANC of 1030. He did receive growth factor support with Neupogen. He required growth factor support with Neupogen again and his counts have held well Follow-up CT PET scan after 3 cycles done on January 31, 2021 showed 3.2 cm distal esophageal thickening with SUV of 9.2 compared to 21.[address] PET scan done at [facility] on September 11, 2020. And FDG positive mediastinal lymph nodes are consistent with local metastatic disease dominant node in the superior right lateral tracheal node measuring 1.9 cm with SUV of 5.7. Other nodes in the right paratracheal territory are less FDG avid. Multifocal hepatic metastatic disease is present in the right and left lobes. Several hepatic hypodensities are minimally FDG positive consistent with previously treated lesions. However, several FDG avid lesions have SUV up to 7.0 indicating active lesions. A right retroperitoneal aortocaval node is FDG positive. Multifocal osseous metastatic disease is present in the left L2 pedicle, right pubic bone, anterior right fourth rib .Came for follow-up, denies any specific complaint except off and on dysphagia to certain food, patient still using his tube feeding. But no hemoptysis or hematemesis, no melena hematochezia, no fever chills, no nausea or vomiting, is mid upper back pain is almost resolved, chest x-ray/thoracic spine x-ray shows no evidence of vertebral damage., Patient is tolerating palliative therapy with weekly carboplatin/Taxol well otherwise Medications: Aspirin 1 (81 mg) Tablet Oral daily, buPROPion HCl ER (SR) 1 (150 mg) Tablet SR 12 HR Oral daily, clonazePAM 1 (2 mg) Tablet Oral daily, Cymbalta 1 Capsule (of 100 mg) Capsule Delayed Release Particles Oral daily, Esomeprazole Magnesium 1 (40 mg) Capsule Delayed Release Oral daily, Ferrous Gluconate 1 (324 (37.5 fe) mg) Tablet Oral b.i.d., Ferrous Sulfate 1 (325 (65 fe) mg) Tablet Oral daily, Fish Oil 1 (1200 mg) Capsule Oral daily, Folic Acid 1 (1 mg) Tablet Oral daily, Gabapentin 1 (800 mg) Tablet Oral t.i.d., glipiZIDE ER 1 (5 mg) Tablet SR 24 HR Oral daily, Hydroxychloroquine Sulfate 2 Tablet (of 200 mg) Oral daily, Irbesartan 1 (75 mg) Tablet Oral daily, Lovastatin 1 (20 mg) Tablet Oral daily, Magnesium Oxide -Mg Supplement 1 (250 mg) Tablet Oral b.i.d., Methotrexate (2.5 mg) Tablet Oral Take as Directed, Nitroglycerin 1 (0.4 mg) Tablet, sublingual Sublingual PRN, OxyCODONE HCl 1 - 2 (30 mg) Tablet Oral q 4 hours PRN, Pantoprazole Sodium 1 (40 mg) Tablet, enteric coated Oral daily, PARoxetine HCl 1 (20 mg) Tablet Oral b.i.d., PredniSONE 1 Tablet (of 5 mg) Oral daily, Sildenafil Citrate 1 (25 mg) Tablet Oral PRN, tiZANidine HCl 1 Capsule (of 4 mg) Tablet Oral q 12 hours PRN Allergies: Lisinopril Review of Systems: Review of Systems is not available for this patient. Vital Signs: Performed on Apr 02, 2021 13:20 Height - 72.00 in Temperature - 97.3 F (LOW) Pulse - 78 /min Respiration - 18 /min BP - 101/57 mm(hg) O2 Sat - 99 % Pain - 0 Fatigue - 0 Performed on Apr 02, 2021 09:31 Height - 72.00 in Temperature - 97.7 F (LOW) Pulse - 94 /min Respiration - 18 /min BP - 111/75 mm(hg) O2 Sat - 96 % Pain - 4 Fatigue - 3 Performance Status: 1 - No physically strenuous activity, but ambulatory and able to carry out light or sedentary work (e.g. office work, light house work). (ECOG) Physical Examination: ENMT - No mouth sores, no thrush, no jaundice, Respiratory - Lungs are clear to auscultation, Cardiovascular - Regular rate and rhythm of heart, Abdomen - Soft, bowel sounds present, feeding tube site clear, Extremities - Trace edema bilaterally. Lab/Imaging: Test performed on Apr 01, 2021 14:13 Sodium 132 mmol/L Potassium 3.8 mmol/L Chloride 100 mmol/L CO2 22 mmol/L Anion Gap 13.8 BUN 20 mg/dL Creatinine 0.6 mg/dL Cr Clearance (Est) 163.8400 mL/min eGFR 138.9 mL/min Glucose 108 mg/dL Osmolality - Calculated 277 mOsm/kg Calcium 8.4 mg/dL Protein, Total 6.5 g/dL Albumin 3.7 g/dL Globulin 2.8 g/dL Bilirubin, Total 0.3 mg/dL ALT (SGPT) 15 U/L AST (SGOT) 17 U/L Alkaline Phosphatase 94 IU/L WBC 4.4 10 3/uL RBC 3.19 10 6/uL HGB 9.8 g/dL HCT 30.7 % MCV 96.2 fl MCH 30.7 pg MCHC 31.9 g/dL RDW 19.9 % Platelet Count 177 10 3/cmm MPV 8.9 fL Neutrophils 1.51 10 3/uL Lymphocytes 2.2 10 3/uL Monocytes 0.6 10 3/uL Eosinophils 0.0 10 3/uL Basophils 0.0 10 3/uL Neutrophil % 34.6 % Lymphocyte % 49.3 % Monocyte % 14.4 % Eosinophil % 0.5 % Basophils % 0.5 % NRBC % 0 % Test performed on Mar 11, 2021 13:04 Ferritin 551 ng/mL Iron 21 mcg/dL Vitamin B12 1032 pg/mL Iron Binding Capacity (TIBC) 210 mcg/dl % Iron Saturation 10.0 % UIBC 189 mcg/dL Test performed on Mar 05, 2021 09:00 Manual Segs % 69 % Manual Bands % 15.0 % Manual Lymphs % 10 % Atypical Lymphs % 1.0 % Total Cells Counted 100 Manual Monos % 3.0 % Manual Eos % 0 % Manual Basos % 0.0 % Metamyelocytes % 1.0 % Myelocytes % 1.0 % CBC Slide Review Slide Review Perform Anisocytosis 2+ Poikilocytosis 2+ Platelet Estimate Normal Manual Segs Abs 3.0 10/cmm Manual Bands Abs 0.6 10 3/cmm Manual Neutrophils Abs 3.6 10 3/cmm Manual Lymphocytes Abs 0.5 10 3/cmm Manual Monocytes Abs 0.1 10 3/cmm Manual Eosinophils Abs 0.0 10 3/cmm Manual Basophils Abs 0.0 10 3/cmm Test performed on Feb 11, 2021 13:34 Macrocytosis 1+ Ovalocytes Trace Schistocytes Trace Impression: 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 CT PET scan done on September 11, 2020 at [facility] shows mild thickening of the distal thoracic esophagus extending into gastric cardia with FDG uptake 21.2, Multiple hypermetabolic hepatic lesions largest is 3.3 x 3.1 cm in hepatic segment 7 SUV 11.1 Status post radiation therapy to C5 which he completed on November 17, 2020 Starting on weekly carboplatin/Taxol on December 04, 2020 Hypermetabolic lymphadenopathy within the gastrohepatic and retroperitoneal station, and para-aortic. There are hypermetabolic lytic lesion centered in C5 vertebral body, and left L2 pedicle, and anterior right fourth rib. 2 . 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 A reactive process cannot be entirely excluded. 3. Rheumatoid arthritis diagnosed in 2004 on prednisone, HCQ, methotrexate, Methotrexate discontinued on December 16, 2020 due to progressive leukopenia while on chemotherapy Bilateral subaxillary skin lesion questionable etiology, was referred to Dr. haley, yoga teacher in [facility], patient underwent skin biopsy from left subaxillary area, as per patient it shows chronic inflammation and now being treated with topical agent Status post radiation therapy to C5 , Completed in December 2020 Started on palliative chemotherapy with carboplatin/Taxol on December 04, 2020 CT PET scan finding which Was done on January 31, 2021 showed 3.2 cm distal esophageal thickening with SUV of 9.2, compared to 21.[address] PET scan done at [facility] on September 11, 2020 malignant mediastinal and upper abdominal lymphadenopathy which was seen on previous CT PET scan and multiple hepatic lesions, improvement now SUV of 7 compared to 11 previously and many of the hepatic lesion shows no FDG activity. No new bony lesion but persistent right pubic bone, left L2 pedicle, anterior right fourth rib lesion Plan: Discussed with patient regarding his labs white blood count 4.4 hemoglobin 9.8 g compared to 8.9 g previously hematocrit 30.7 platelets 177 ANC 1510 CMP within normal limit except sodium 132 Clinically, patient doing reasonably well, tolerating palliative therapy with weekly carboplatin/Taxol well with good palliation, will proceed with next weekly dose of Taxol/carboplatin today and then he will return to clinic in 1 week with a follow-up CT PET scan to assess response and also refer him to Dr. Banks for evaluation for progressive dysphagia, could be due to disease progression or stricture, if her stricture, he may benefit from esophageal dilation. As far as anemia is concerned, patient was given parenteral iron recently with that his hemoglobin stabilized and now improving, will continue to monitor Signed By: Asaf Ramachandran M.D. <<Signature on File>>
== END 2021-04-02 23:59 | disposition home or self-care (01) ==
LOC: ONCMED 06:21
PROVIDERS: PCP Nurse Practitioner; Visit Provider Internal Medicine Hematology & Oncology
DX: Z51.11 Encounter for antineoplastic chemotherapy (principal); C15.5 Malignant neoplasm of lower third of esophagus; C77.8 Secondary and unspecified malignant neoplasm of lymph nodes of multiple regions; C78.7 Secondary malignant neoplasm of liver and intrahepatic bile duct; M06.9 Rheumatoid arthritis, unspecified; Z79.52 Long term (current) use of systemic steroids; Z79.899 Other long term (current) drug therapy
CPT/HCPCS: 36591; 72072; 80053; 82607; 82728; 83540; 83550; 85007; 85025; 96365; 96367; 96372; 96375; 96413; 96417; 99215; J0897; J1100; J1200; J1439; J1453; J2469; J3490; J7030; J7040; J7050; J9045; J9267

== ENCOUNTER → 2021-04-06 11:22 | Outpatient (BNVA) | payer MEDICARE, SELFPAY | PROVIDERS: PCP Nurse Practitioner; Referring Provider Internal Medicine Hematology & Oncology; Visit Provider Surgery | DX: Z11.52 Encounter for screening for COVID-19 (principal); C15.9 Malignant neoplasm of esophagus, unspecified | CPT/HCPCS: 87635 ==

== ENCOUNTER 2021-04-09 06:23 | Outpatient (RCR) | payer MEDICARE, SELFPAY ==
[2021-04-07 16:07] LABS: Basophils % 0.4 %; Eosinophils % 0.4 %; Hematocrit 27.6 % (42.0-52.0); Hemoglobin 8.8 g/dL (11.7-16.6); Lymphocytes # 2.1 10^3/uL (0.8-4.8); Mean Corpuscular HGB Conc 31.9 g/dL (30.0-36.0); Mean Corpuscular Hemoglobin 31.3 pg (28.0-34.0); Mean Corpuscular Volume 98.2 fl (80-94); Mean Platelet Volume 9.7 fL (7.4-10.4); Monocytes # 0.3 10^3/uL (0.2-0.9); Monocytes % 10.7 %; Neutrophils % 10.8 %; Nucleated Red Blood Cells % 0 %; Platelet Count 148 10^3/cmm (130-400); Red Blood Count 2.81 10^6/uL (4.1-5.3); Red Cell Distribution Width 19.5 % (12.1-15.1); White Blood Count 2.7 10^3/uL (4.0-10.0)
[2021-04-07 16:55] LABS: Alanine Aminotransferase 12 U/L (0-41); Albumin Level 3.5 g/dL (3.5-5.2); Alkaline Phosphatase 79 IU/L (40-130); Anion Gap 14.7 (5-19); Aspartate Amino Transferase 17 U/L (0-40); Blood Urea Nitrogen 18 mg/dL (6-20); Calcium 8.1 mg/dL (8.5-10.5); Carbon Dioxide 22 mmol/L (22-29); Chloride 101 mmol/L (98-107); Globulin 2.6 g/dL (1.3-4.6); Glomerular Filtration Rate 171.4 mL/min (90-130); Glucose 118 mg/dL (65-115); Osmolality Calculated 281 mOsm/kg (285-295); Potassium 3.7 mmol/L (3.5-5.1); Sodium 134 mmol/L (136-145); Total Bilirubin 0.2 mg/dL (0.15-1.2); Total Protein 6.1 g/dL (6.6-8.7)
[2021-04-07 17:21] LABS: Neutrophils # 0.29 10^3/uL (1.8-7.7)
[2021-04-08] MEDS: sodium chloride 0.9% 500 ML 999 ML IV (09:45)
[2021-04-08] MEDS: levofloxacin-dextrose 5 % 500 MG/100 ML PREMIX 100 MG IV (09:45)
--- NOTE | 2021-04-09 17:56 | ONC FU_ITS ---
Dr. Ramachandran follow up note Patient: Maximino Sandoval Unit #: [id number]: [id number] Dicatated By: Asaf Ramachandran M.D.Date of Visit:Apr 08, 2021 Onc Med Follow-up/Prog Note History of Present Illness: Mr. 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 Mr. Sandoval was started on methotrexate and prednisone on April 27, 2020 for the T???LGL. He had abdominal ultrasound performed on August 01, 2020 which reported a normal spleen size. He has been treated for the RA for some time with prednisone Plaquenil and methotrexate. He presented to his PCP with new onset dysphagia and anemia. He did have a EGD on 08/14/2020 which reported at 35 cm from the incisors esophageal thickening, friable, and easily bleeding. The EGD pathology showed moderately poorly differentiated invasive adenocarcinoma. A CT chest abdomen pelvis was obtained on 08/14/2020 which reported diffuse circumferential distal esophageal/GE J thickening, few enlarged paraesophageal lymph nodes largest 1.1 cm, slightly enlarged celiac and quinton hepatis lymph nodes sizes 1.1 to 1.2 cm and a subcentimeter lung nodule left upper lobe and left lower lobe less than 5 mm. He had staging PET/CT on 09/11/2020 which reported marked thickening of the distal thoracic esophagus extending into the gastric cardia with marked FDG uptake at 221.2 SUV. There were multiple hypermetabolic hepatic lesions. The largest of which has a vague hypoattenuating CT correlate; this was difficult to measure but is approximately 3.3 x 3.1 cm with an hepatic segment 7/caudate bridge (SUV max of 11.1). There was hypermetabolic lymphadenopathy within the gastric hepatic and retroperitoneal stations for example 1.3 cm gastric hepatic node SUV 3.8 and an 8 mm retrocaval node maximum SUV 4.8. There was an 8 mm para-aortic node with a maximal SUV of 3.1. There were hypermetabolic lesions centered in the C5 vertebral body and the left L2 pedicle. There was additional hypermetabolic focus in the anterior right fourth rib but did not have definite CT correlate. The SUV was 5.78. Predominately symmetric FDG uptake about the hips within the bilateral gluteal muscles, bilateral iliopsoas and left tensor fossa lilliam muscles. MRI scan of the C-spine done on October 21, 2020 showed enhancing metastatic lesion at the C5 vertebral body with surrounding paravertebral soft tissue enhancement. 10 ventral epidural enhancement with mild central canal stenosis and moderate multilevel bony foraminal narrowing worse at C3-7 was seen at [facility] by Jerri Layne???ANGELIA flores and Dr. Valdo Osorio on 09/08/2020. Their notes indicate they discussed with Mr. Sandoval that he appears to have locally advanced disease with lymph node involvement. Further recommendation was treatment with chemotherapy carboplatin paclitaxel in combination with radiation. Depending on treatment response he may require surgery. If he is found to have stage IV disease by his staging PET/CT imaging would be systemic chemotherapy alone. He was recommended to have port placement at that time as well. In regards to his LGL he was to continue to follow with and continue on low-dose prednisone and methotrexate as he had adequate control since April 2019. He is to continue following with rheumatology for his RA and may continue using methotrexate, prednisone and hydroxychloroquine. Mr. Sandoval was referred back to us and had follow-up on 09/19/2020. 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 He was also having progressive dysphagia at that time. recommended obtaining guardant 360 testing and placement of Port-A-Cath. He also recommended to get biphosphonate to prevent skeletal related complications. Mr. Sandoval was also referred for MRI scanning of the C-spine with attention to C5 as he was having more pain. Mr. Sandoval was referred to Dr. Banks for placement of a PowerPort. He had placement of the port into the left subclavian vein which on September 29, 2020. He was then seen on 10/24/2020 and the Guardiant 360 results were reviewed. His HER-2/stephanie results were negative, MSI/MMR intact with alteration at CESARIO gene thus he may be responsive to PARP inhibitors. (Guardant 360 showed tumor mutational burden 14.35 e.g. more than 10, pembrolizumab is indicated, and other abnormality including CESARIO W266, CESARIO O5115R, CESARIO splice site indel, FDA approved therapy include olaparib, niraparib, rucaparib, talazoparib can be considered). He was having moderate to severe distress due to left anterior chest wall pain and was referred to the emergency room for further evaluation. He was also referred for PEG tube placement. He had PEG tube placement per Dr. Banks on 11/12/2020. He had confirmation of C5 involvement per MRI of the scan of the C-spine although he was not symptomatic. He was referred to Dr. Connell in [facility] for consideration of palliative radiotherapy. He did see Dr. Connell on 10/28/2020. At that time he recommended palliative radiotherapy to the C5 vertebral body. Mr. Sandoval completed palliative radiotherapy for C5 involvement of his metastatic esophageal cancer on November 17, 2020. He had a prescribed dose of 30 Edmonds which delivered in 10 fractions over 15 elapsed days. PMH: Skin biopsy from left subaxillary area done on 02/05/2019 showed chronic inflammation now being treated with topical agent per Dr. Haley lurer in [facility]. Started on weekly carboplatin/Taxol on December 04, 2020 Mr. Sandoval was started on his first cycle of carboplatin paclitaxel on December 04, 2020. He was able to complete day 8 (reidentified as cycle 2 day 1 due to the interim between day 1 & 8) on December 22, 2020. He did have chemotherapy-induced neutropenia on day 8 with an ANC of 1030. He did receive growth factor support with Neupogen. He required growth factor support with Neupogen again and his counts have held well Follow-up CT PET scan after 3 cycles done on January 31, 2021 showed 3.2 cm distal esophageal thickening with SUV of 9.2 compared to 21.[address] PET scan done at [place] on September 11, 2020. And FDG positive mediastinal lymph nodes are consistent with local metastatic disease dominant node in the superior right lateral tracheal node measuring 1.9 cm with SUV of 5.7. Other nodes in the right paratracheal territory are less FDG avid. Multifocal hepatic metastatic disease is present in the right and left lobes. Several hepatic hypodensities are minimally FDG positive consistent with previously treated lesions. However, several FDG avid lesions have SUV up to 7.0 indicating active lesions. A right retroperitoneal aortocaval node is FDG positive. Multifocal osseous metastatic disease is present in the left L2 pedicle, right pubic bone, anterior right fourth rib Came for follow-up, complaining of generalized weakness and fatigue and leakage around his feeding-tube but no pus or discharge, mostly food stuff. No fever chills, no sore throat, no dysuria, no nausea or vomiting but still has dysphagia and scheduled for EGD on Tuesday and follow-up CT PET scan on coming Tuesday. Medications: Aspirin 1 (81 mg) Tablet Oral daily, buPROPion HCl ER (SR) 1 (150 mg) Tablet SR 12 HR Oral daily, clonazePAM 1 (2 mg) Tablet Oral daily, Cymbalta 1 Capsule (of 100 mg) Capsule Delayed Release Particles Oral daily, Esomeprazole Magnesium 1 (40 mg) Capsule Delayed Release Oral daily, Ferrous Gluconate 1 (324 (37.5 fe) mg) Tablet Oral b.i.d., Ferrous Sulfate 1 (325 (65 fe) mg) Tablet Oral daily, Fish Oil 1 (1200 mg) Capsule Oral daily, Folic Acid 1 (1 mg) Tablet Oral daily, Gabapentin 1 (800 mg) Tablet Oral t.i.d., glipiZIDE ER 1 (5 mg) Tablet SR 24 HR Oral daily, Hydroxychloroquine Sulfate 2 Tablet (of 200 mg) Oral daily, Irbesartan 1 (75 mg) Tablet Oral daily, Lovastatin 1 (20 mg) Tablet Oral daily, Magnesium Oxide -Mg Supplement 1 (250 mg) Tablet Oral b.i.d., Methotrexate (2.5 mg) Tablet Oral Take as Directed, Nitroglycerin 1 (0.4 mg) Tablet, sublingual Sublingual PRN, OxyCODONE HCl 1 - 2 (30 mg) Tablet Oral q 4 hours PRN, Pantoprazole Sodium 1 (40 mg) Tablet, enteric coated Oral daily, PARoxetine HCl 1 (20 mg) Tablet Oral b.i.d., PredniSONE 1 Tablet (of 5 mg) Oral daily, Sildenafil Citrate 1 (25 mg) Tablet Oral PRN, tiZANidine HCl 1 Capsule (of 4 mg) Tablet Oral q 12 hours PRN Allergies: Lisinopril Review of Systems: Review of Systems is not available for this patient. Vital Signs: Performed on Apr 08, 2021 08:47 Height - 72.00 in Weight - 182.6 lbs (LOW) BSA - 2.05 sq.m BMI - 24.77 Temperature - 97.5 F (LOW) Pulse - 76 /min Respiration - 18 /min BP - 90/54 mm(hg) O2 Sat - 99 % Pain - 0 Fatigue - 4 Performance Status: 1 - No physically strenuous activity, but ambulatory and able to carry out light or sedentary work (e.g. office work, light house work). (ECOG) Physical Examination: ENMT - No mouth sores, no thrush, no jaundice, Respiratory - Lungs are clear to auscultation, Cardiovascular - Regular rate and rhythm of heart, Abdomen - Soft, bowel sounds present, Extremities - No visible edema. Lab/Imaging: Test performed on Apr 01, 2021 14:13 Sodium 132 mmol/L Potassium 3.8 mmol/L Chloride 100 mmol/L CO2 22 mmol/L Anion Gap 13.8 BUN 20 mg/dL Creatinine 0.6 mg/dL Cr Clearance (Est) 163.8400 mL/min eGFR 138.9 mL/min Glucose 108 mg/dL Osmolality - Calculated 277 mOsm/kg Calcium 8.4 mg/dL Protein, Total 6.5 g/dL Albumin 3.7 g/dL Globulin 2.8 g/dL Bilirubin, Total 0.3 mg/dL ALT (SGPT) 15 U/L AST (SGOT) 17 U/L Alkaline Phosphatase 94 IU/L WBC 4.4 10 3/uL RBC 3.19 10 6/uL HGB 9.8 g/dL HCT 30.7 % MCV 96.2 fl MCH 30.7 pg MCHC 31.9 g/dL RDW 19.9 % Platelet Count 177 10 3/cmm MPV 8.9 fL Neutrophils 1.51 10 3/uL Lymphocytes 2.2 10 3/uL Monocytes 0.6 10 3/uL Eosinophils 0.0 10 3/uL Basophils 0.0 10 3/uL Neutrophil % 34.6 % Lymphocyte % 49.3 % Monocyte % 14.4 % Eosinophil % 0.5 % Basophils % 0.5 % NRBC % 0 % Test performed on Mar 11, 2021 13:04 Ferritin 551 ng/mL Iron 21 mcg/dL Vitamin B12 1032 pg/mL Iron Binding Capacity (TIBC) 210 mcg/dl % Iron Saturation 10.0 % UIBC 189 mcg/dL Test performed on Mar 05, 2021 09:00 Manual Segs % 69 % Manual Bands % 15.0 % Manual Lymphs % 10 % Atypical Lymphs % 1.0 % Total Cells Counted 100 Manual Monos % 3.0 % Manual Eos % 0 % Manual Basos % 0.0 % Metamyelocytes % 1.0 % Myelocytes % 1.0 % CBC Slide Review Slide Review Perform Anisocytosis 2+ Poikilocytosis 2+ Platelet Estimate Normal Manual Segs Abs 3.0 10/cmm Manual Bands Abs 0.6 10 3/cmm Manual Neutrophils Abs 3.6 10 3/cmm Manual Lymphocytes Abs 0.5 10 3/cmm Manual Monocytes Abs 0.1 10 3/cmm Manual Eosinophils Abs 0.0 10 3/cmm Manual Basophils Abs 0.0 10 3/cmm Test performed on Feb 11, 2021 13:34 Macrocytosis 1+ Ovalocytes Trace Schistocytes Trace Impression: 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 CT PET scan done on September 11, 2020 at [place] shows mild thickening of the distal thoracic esophagus extending into gastric cardia with FDG uptake 21.2, Multiple hypermetabolic hepatic lesions largest is 3.3 x 3.1 cm in hepatic segment 7 SUV 11.1 Status post radiation therapy to C5 which he completed on November 17, 2020 Starting on weekly carboplatin/Taxol on December 04, 2020 Hypermetabolic lymphadenopathy within the gastrohepatic and retroperitoneal station, and para-aortic. There are hypermetabolic lytic lesion centered in C5 vertebral body, and left L2 pedicle, and anterior right fourth rib. 2 . 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 A reactive process cannot be entirely excluded. 3. Rheumatoid arthritis diagnosed in 2004 on prednisone, HCQ, methotrexate, Methotrexate discontinued on December 16, 2020 due to progressive leukopenia while on chemotherapy Bilateral subaxillary skin lesion questionable etiology, was referred to Dr. haley, lurer in [facility], patient underwent skin biopsy from left subaxillary area, as per patient it shows chronic inflammation and now being treated with topical agent Status post radiation therapy to C5 , Completed in December 2020 Started on palliative chemotherapy with carboplatin/Taxol on December 04, 2020 CT PET scan finding which Was done on January 31, 2021 showed 3.2 cm distal esophageal thickening with SUV of 9.2, compared to 21.[address] PET scan done at [place] on September 11, 2020 malignant mediastinal and upper abdominal lymphadenopathy which was seen on previous CT PET scan and multiple hepatic lesions, improvement now SUV of 7 compared to 11 previously and many of the hepatic lesion shows no FDG activity. No new bony lesion but persistent right pubic bone, left L2 pedicle, anterior right fourth rib lesion Plan: Discussed with patient regarding his labs white blood count 2.7 hemoglobin 8.8 hematocrit 27.6 platelets 148,000 ANC 290 CMP within normal limit except sodium 134 Clinically, patient is doing reasonably well in mild distress due to generalized weakness and fatigue his follow-up lab work-up shows persistent moderate anemia, hemoglobin is 8.8 compared to 9.8 previously. No evidence of gross bleeding. And also shows neutropenia and his blood pressure was 90/50, pulse was around 78. Patient said he is not consuming enough fluids due to leakage around feeding tube, could be due to dehydration. Or sepsis but less likely, inpatient observation was discussed but patient declined, at this point we will consider IV hydration with normal saline 500 cc, Levaquin 500 mg intravenous x1 and then 500 mg p.o. or per feeding tube daily for 1 week and also consider restarting him on Neupogen 480 subcu daily today and tomorrow. Patient was advised in case any mental status changes, or any fever, he need to go to hospital immediately. Patient is scheduled for CT PET scan on Tuesday and follow-up EGD on Tuesday and then he will return to clinic in 1 week with CBC and CMP and for discussion regarding disease response to the treatment, based on that we will make further recommendations. Signed By: Asaf Ramachandran M.D. <<Signature on File>>
== END 2021-04-09 23:59 | disposition home or self-care (01) ==
LOC: ONCMED 06:23
PROVIDERS: PCP Nurse Practitioner; Visit Provider Internal Medicine Hematology & Oncology
DX: C15.5 Malignant neoplasm of lower third of esophagus (principal); C77.8 Secondary and unspecified malignant neoplasm of lymph nodes of multiple regions; C78.7 Secondary malignant neoplasm of liver and intrahepatic bile duct; C78.01 Secondary malignant neoplasm of right lung; C78.02 Secondary malignant neoplasm of left lung; C79.51 Secondary malignant neoplasm of bone; M06.9 Rheumatoid arthritis, unspecified; Z79.52 Long term (current) use of systemic steroids; Z79.899 Other long term (current) drug therapy
CPT/HCPCS: 36591; 80053; 85025; 96361; 96365; 96372; 99215; J1956; J7040; Q5101

== ENCOUNTER 2021-04-10 15:16 | Emergency (ER) | payer MEDICARE, SELFPAY ==
[2021-04-10 15:36] VITALS: BP 109/67; PULSE 98; RESP 16; TEMP 36.7; O2SAT 98
--- NOTE | 2021-04-10 15:41 | XR_ITS ---
WS: [id number] XR hip RT 2-3V wo/w pel* [id number] REASON FOR EXAM: fall FINDINGS: Moderate narrowing of the joint space. Subchondral sclerosis in the subarticular acetabulum. No other focal bone abnormality. No soft tissue abnormality. XR/XR hip RT 2-3V wo/w pel* [id number] IMPRESSION: Moderate osteoarthritis of the right hip as above. There has been increased tha rowing of the joint space since the previous examination of 11/07/2007.
--- NOTE | 2021-04-10 15:41 | XR_ITS ---
WS: [id number] XR lumbar spine 2-3V* [id number] REASON FOR EXAM: fall, hx of CA FINDINGS: Rotatory scoliosis of the lumbar spine convex right. No significant compression deformity or other focal lumbar vertebral abnormality. Severe narrowing of the intervertebral disc spaces, with vacuum phenomena, L2-L5. Moderate narrowing of the L1-L2 disc space. Minimal narrowing of the L5-S1 disc space. No significant listhesis. XR/XR lumbar spine 2-3V* [id number] IMPRESSION: Multilevel degenerative spondylosis as above.
--- NOTE | 2021-04-10 17:38 | W.ED.FALL ---
HPI - Fall General: Chief Complaint: Fall Stated Complaint: Lower back pain and R Hip Pain Time Seen by Provider: 04/10/21 17:30 History of Present Illness: HPI Narrative: Patient fell on tailbone approximately week ago continues to bother him. Patient does not have hip pain. complaint: fall Onset (ago): day(s) Fall from: standing Fall witnessed: yes, by family Place fall occurred: home Loss of consciousness: None Prolonged down time: no Symptoms prior to fall: none Context: tripped/slipped Location of injury: pelvis (Tailbone) Severity: moderate Severity scale (1-10): 6 Quality: aching Associated symptoms-after fall: Reports no associated symptoms; Denies abdominal pain, chest pain or headache(s) Review of Systems Const: Denies: fever(s), chills or body aches Eyes: Denies: change in vision or blurry vision ENMT: Denies: throat pain or nasal congestion Card: Denies: chest pain or dyspnea on exertion Resp: Denies: dyspnea, productive cough or non-productive cough GI: Denies: abdominal pain, nausea or vomiting : Denies: difficulty urinating Musc: Reports: back pain (Tailbone hurts after a fall onto a hard surface 1 week ago.); Denies: extremity pain Skin/Breast: Denies: rash Neuro: Denies: headache(s) Psych: Denies: anxiety or depression Kb/Lymph: Denies: easy bruising PFS ED PFSH: Medical History Anemia Atypical lymphocytosis Chronic kidney disease COPD (chronic obstructive pulmonary disease) Coronary artery disease Diabetes mellitus Dilutional hyponatremia (~07/2019) Dyslipidemia Esophageal adenocarcinoma Gastro-esophageal reflux disease without esophagitis Generalized anxiety disorder Hypertension Lumbago Myocardial infarct Rheumatoid arthritis Surgical History H/O heart artery stent History of colonoscopy History of endoscopy (08/14/20) Esophageal mass Port-A-Cath in place (09/29/20) Status post insertion of percutaneous endoscopic gastrostomy (PEG) tube (11/12/20) Family History Family/Other Cancer Family members in general Diabetes Family members in general Hypothyroid Family members in general Social History Quit status (tobacco): quit date established Second hand smoke exposure: No Smoking risk assessment/counseling performed?: No Alcohol intake: never Desire information about alcohol rehabilitation?: No Counseling given: No Desire information about substance/drug rehabilitation?: No Counseling given: No Caregiver/support person: No Lives independently: Yes Household members: significant other Marital status: Single History of recent travel: No Current gender identity: Male Physical Exam Const: COMMON NORMALS: no acute distress GENERAL APPEARANCE: cooperative Resp: COMMON NORMALS: normal respiratory effort Back/Pelvis: SACRUM: tenderness (Upper aspect near the lumbar area, no swelling or bruising) positive midline COCCYX: Coccyx tenderness present Skin: GENERAL SKIN EXAM: pallor Course Vital Signs: Vital signs: Vital Signs Temperature 98.1 F 04/10/21 15:36 Pulse Rate 98 04/10/21 15:36 Respiratory Rate 16 04/10/21 15:36 Blood Pressure 109/67 04/10/21 15:36 Pulse Oximetry 98 04/10/21 15:36 MDM - Fall MDM Narrative: Medical decision making narrative: Patient with tenderness to L5-S1 area on palpation. Radiology studies negative for any fracture or dislocation. Patient has history of cancer currently treated. Patient is diabetic. Patient not taking medication for discomfort. Patient diagnosed with tailbone contusion. Discharge Plan Discharge Patient Disposition: Home Clinical Impression: Coccyx contusion Qualifiers: Encounter type: initial encounter Qualified Code(s): S30.0XXA - Contusion of lower back and pelvis, initial encounter Condition: Stable Prescriptions: New Celebrex 100 mg capsule 100 mg PO BID Qty: 20 RF: 0 No Action oxycodone 15 mg tablet 30 mg PO Q6H PRN (Reason: Pain) RF: 0 clonazepam [Klonopin] 2 mg tablet See Rx Instructions .ROUTE .COMPLEX RF: 0 prednisone 5 mg tablet 5 mg PO DAILY@0830 RF: 0 tizanidine 4 mg capsule 4 mg PO Q12H Qty: 60 RF: 2 sucralfate [Carafate] 1 gram tablet 1 g PO BID 28 Days Qty: 56 RF: 0 nitroglycerin 0.4 mg tablet, sublingual See Rx Instructions .ROUTE .COMPLEX Qty: 25 RF: 0 glipizide 5 mg tablet extended release 24hr See Rx Instructions .ROUTE .COMPLEX Qty: 90 RF: 0 pantoprazole 40 mg tablet,delayed release (DR/EC) 40 mg PO DAILY 30 Days Qty: 30 RF: 0 nystatin 100,000 unit/gram cream See Rx Instructions .ROUTE .COMPLEX Qty: 30 RF: 0 magnesium oxide 250 mg magnesium Tablet 250 mg PO BID@829,2029 RF: 0 sertraline [Zoloft] 100 mg tablet 100 mg PO DAILY@829 RF: 0 gabapentin 800 mg tablet 800 mg PO TID@829,1229,2029 RF: 0 folic acid 1 mg tablet 1 mg PO DAILY@829 RF: 0 lovastatin 20 mg tablet 20 mg PO DAILY@829 RF: 0 bupropion HCl 150 mg tablet extended release 24 hr 150 mg PO DAILY@829 RF: 0 ferrous sulfate 324 mg (65 mg iron) tablet,delayed release (DR/EC) 324 mg PO DAILY@829 RF: 0 ondansetron HCl 4 mg tablet 4 mg PO Q8H PRN (Reason: NAUSEA/VOMITING) RF: 0 prochlorperazine maleate 10 mg tablet 10 mg PO Q4H PRN (Reason: NAUSEA/VOMITING) RF: 0 dexamethasone 4 mg tablet See Rx Instructions .ROUTE .COMPLEX RF: 0 Humulin R Regular U-100 Insuln 100 unit/mL solution See Rx Instructions .ROUTE .COMPLEX MDD 44 UNITS RF: 0 lorazepam 1 mg tablet 0.5 - 1 mg PO TID PRN (Reason: Anxiety) RF: 0 Discharge Orders: Discharge ED (Routine); Ordered 04/10/21 Ordered By: Buck Middleton Referrals: Stephany Villlapando, [facility] [Primary Care Provider] - Discharge Diet: Usual diet Discharge Activity: Increase activity as tolerated Patient Instructions: Coccyx Injury (ED) Activity Restrictions/Additional Instructions: Apply ice to area. Take medication as directed. Use a soft pillow to sit on to keep pressure off the coccyx area. Follow-up your primary care provider if no significant improvement. Coding Level of Care Code ED Finisher Operator for Chg Fwd Exam Expanded Problem Focused
[2021-04-10] MEDS: CELEcoxib 200 mg Capsule 400 MG PO (17:45)
== END 2021-04-10 17:47 | disposition home or self-care (01) ==
PROVIDERS: Emergency Provider Nurse Practitioner Family; PCP Nurse Practitioner
DX: S30.0XXA Contusion of lower back and pelvis, initial encounter (principal); Z79.84 Long term (current) use of oral hypoglycemic drugs; Z79.4 Long term (current) use of insulin; J44.9 Chronic obstructive pulmonary disease, unspecified; I25.10 Atherosclerotic heart disease of native coronary artery without angina pectoris; E11.9 Type 2 diabetes mellitus without complications; E78.5 Hyperlipidemia, unspecified; I10 Essential (primary) hypertension; I25.2 Old myocardial infarction; W19.XXXA Unspecified fall, initial encounter
CPT/HCPCS: 72100; 73502; 99283

== ENCOUNTER 2021-04-13 07:43 | Day surgery (SDC) | payer MEDICARE, SELFPAY ==
--- NOTE | 2021-04-13 07:53 | ANES.PREANE2 ---
Pre-Anesthetic Assessment Pre-Anesthetic Assessment: Height/Weight: Height 1.75 m Weight 82.554 kg Preop Diagnosis: Metastatic esophageal cancer Proposed Procedure: Operation Date: 04/13/21 09:45 Proposed Procedures p EGD Dilation W/ Balloon [id number] C15.9(Not Applicable) - Wayne Banks MD Familial anesthetic complications: None Was Beta Jenna taken within 24 hours: N/A Was Clonidine taken within 24 hours: N/A Last intake: > 8 hrs Social: Social History: Tobacco and No alcohol Exam: Pre-Anes Outpt Exam: alert, oriented x 3, clear to auscultation bilaterally and regular rate & rhythm Airway: MP: 1 Dentition: Other ( bad teeth ) Pulmonary: Pulmonary: COPD and Sleep apnea CV/HEM: CV/HEM: CAD (stents X 3 (> 1 year ago)), HTN and AL : : Chronic renal Insufficiency GI: GI: GERD Metabolic: Metabolic: DM Musc/skel: Musc/skel: Lower Back Pain and RA Neuropsych: Neuropsych: Anxiety Anesthetic Plan: ASA status: 4 Anesthesia: MAC Risk of > 500 ml blood loss (7ml/kg in children): No PFSH Anesthesia PFSH: Medical History Anemia Atypical lymphocytosis Chronic kidney disease COPD (chronic obstructive pulmonary disease) Coronary artery disease Diabetes mellitus Dilutional hyponatremia (~07/2019) Dyslipidemia Esophageal adenocarcinoma Gastro-esophageal reflux disease without esophagitis Generalized anxiety disorder Hypertension Lumbago Myocardial infarct Rheumatoid arthritis Surgical History H/O heart artery stent History of colonoscopy History of endoscopy (08/14/20) Esophageal mass Port-A-Cath in place (09/29/20) Status post insertion of percutaneous endoscopic gastrostomy (PEG) tube (11/12/20) Family History Family/Other Cancer Family members in general Diabetes Family members in general Hypothyroid Family members in general Social History Quit status (tobacco): quit date established Second hand smoke exposure: No Smoking risk assessment/counseling performed?: No Alcohol intake: never Desire information about alcohol rehabilitation?: No Counseling given: No Desire information about substance/drug rehabilitation?: No Counseling given: No Caregiver/support person: No Lives independently: Yes Household members: significant other Marital status: Single History of recent travel: No Current gender identity: Male Data Anesthesia Cardiac Studies: No Data to Display
--- NOTE | 2021-04-13 08:12 | W.PM.OPSUD ---
Surgery/Procedure H&P Update DATE OF PROCEDURE: April 13, 2021 DATE H&P PERFORMED: 04/06/21 H&P UPDATE INFORMATION: I have reviewed H&P completed within last 30 days, I have examined patient prior to procedure and No changes to prior documentation PREOP DIAGNOSIS: Metastatic esophageal cancer PLANNED PROCEDURE: Operation Date: 04/13/21 09:45 Proposed Procedures p EGD Dilation W/ Balloon [id number] C15.9(Not Applicable) - Wayne Banks MD
[2021-04-13 09:08] VITALS: BP 104/71; PULSE 62; RESP 18; TEMP 36.4; O2SAT 99
[2021-04-13] MEDS: sodium chloride 0.9% 1,000 ML 30 ML IV (09:39)
[2021-04-13 09:45] LABS: Glucose Point of Care 97 mg/dL (70-110)
[2021-04-13 10:51] VITALS: BP 102/63; PULSE 73; RESP 15; TEMP 36.3; O2SAT 99
[2021-04-13 11:05] VITALS: BP 100/66; PULSE 58; RESP 16; O2SAT 99
--- NOTE | 2021-04-13 14:58 | ANE.PACU2 ---
Inpatient post-anesthesia follow up: Airway intact: Yes Vital signs: Temperature 97.4 F Pulse Rate 58 Respiratory Rate 16 Blood Pressure 100/66 Pulse Oximetry 99 Oxygen Delivery Me thod Room Air Oxygen Flow Rate 3 Fraction of Inspir ed Oxygen Hydration adequate: Yes Nausea and vomiting: No Pain level: 1 Mental status: Baseline
== END 2021-04-13 11:20 | disposition home or self-care (01) ==
PROVIDERS: PCP Nurse Practitioner; Visit Provider Surgery
DX: C15.9 Malignant neoplasm of esophagus, unspecified (principal); J44.9 Chronic obstructive pulmonary disease, unspecified; G47.30 Sleep apnea, unspecified; I25.10 Atherosclerotic heart disease of native coronary artery without angina pectoris; Z95.5 Presence of coronary angioplasty implant and graft; I25.2 Old myocardial infarction; K21.9 Gastro-esophageal reflux disease without esophagitis; F41.9 Anxiety disorder, unspecified; E11.22 Type 2 diabetes mellitus with diabetic chronic kidney disease; I12.9 Hypertensive chronic kidney disease with stage 1 through stage 4 chronic kidney disease, or unspecified chronic kidney disease; N18.9 Chronic kidney disease, unspecified; E78.5 Hyperlipidemia, unspecified
CPT/HCPCS: 36416; 43235; 82962; 96360; J2704; J7030

== ENCOUNTER 2021-04-30 06:14 | Outpatient (RCR) | payer MEDICARE, SELFPAY ==
[2021-04-14 14:58] LABS: Basophils % 0.4 %; Eosinophils % 0.1 %; Hematocrit 28.9 % (42.0-52.0); Hemoglobin 8.9 g/dL (11.7-16.6); Lymphocytes # 0.6 10^3/uL (0.8-4.8); Lymphocytes % 7.4 %; Mean Corpuscular HGB Conc 30.8 g/dL (30.0-36.0); Mean Corpuscular Hemoglobin 31.4 pg (28.0-34.0); Mean Corpuscular Volume 102.1 fl (80-94); Mean Platelet Volume 9.7 fL (7.4-10.4); Monocytes # 0.7 10^3/uL (0.2-0.9); Monocytes % 8.3 %; Neutrophils # 6.33 10^3/uL (1.8-7.7); Neutrophils % 80.7 %; Nucleated Red Blood Cells % 0 %; Platelet Count 152 10^3/cmm (130-400); Red Blood Count 2.83 10^6/uL (4.1-5.3); Red Cell Distribution Width 20.6 % (12.1-15.1); White Blood Count 7.8 10^3/uL (4.0-10.0)
[2021-04-14 15:18] LABS: Alanine Aminotransferase 12 U/L (0-41); Albumin Level 3.6 g/dL (3.5-5.2); Alkaline Phosphatase 98 IU/L (40-130); Anion Gap 12.2 (5-19); Aspartate Amino Transferase 15 U/L (0-40); Blood Urea Nitrogen 13 mg/dL (6-20); Calcium 7.9 mg/dL (8.5-10.5); Carbon Dioxide 24 mmol/L (22-29); Chloride 107 mmol/L (98-107); Globulin 2.3 g/dL (1.3-4.6); Glomerular Filtration Rate 138.9 mL/min (90-130); Glucose 103 mg/dL (65-115); Osmolality Calculated 288 mOsm/kg (285-295); Potassium 4.2 mmol/L (3.5-5.1); Sodium 139 mmol/L (136-145); Total Bilirubin 0.2 mg/dL (0.15-1.2); Total Protein 5.9 g/dL (6.6-8.7)
--- NOTE | 2021-04-18 15:00 | ONC FU_ITS ---
Dr. Ramachandran follow up note Patient: Maximino Sandoval Unit #: [id number]: [id number] Dicatated By: Asaf Ramachandran M.D.Date of Visit:Apr 14, 2021 Onc Med Follow-up/Prog Note History of Present Illness: Mr. 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 Mr. Sandoval was started on methotrexate and prednisone on April 27, 2020 for the T???LGL. He had abdominal ultrasound performed on August 01, 2020 which reported a normal spleen size. He has been treated for the RA for some time with prednisone Plaquenil and methotrexate. He presented to his PCP with new onset dysphagia and anemia. He did have a EGD on 08/14/2020 which reported at 35 cm from the incisors esophageal thickening, friable, and easily bleeding. The EGD pathology showed moderately poorly differentiated invasive adenocarcinoma. A CT chest abdomen pelvis was obtained on 08/14/2020 which reported diffuse circumferential distal esophageal/GE J thickening, few enlarged paraesophageal lymph nodes largest 1.1 cm, slightly enlarged celiac and quinton hepatis lymph nodes sizes 1.1 to 1.2 cm and a subcentimeter lung nodule left upper lobe and left lower lobe less than 5 mm. He had staging PET/CT on 09/11/2020 which reported marked thickening of the distal thoracic esophagus extending into the gastric cardia with marked FDG uptake at 221.2 SUV. There were multiple hypermetabolic hepatic lesions. The largest of which has a vague hypoattenuating CT correlate; this was difficult to measure but is approximately 3.3 x 3.1 cm with an hepatic segment 7/caudate bridge (SUV max of 11.1). There was hypermetabolic lymphadenopathy within the gastric hepatic and retroperitoneal stations for example 1.3 cm gastric hepatic node SUV 3.8 and an 8 mm retrocaval node maximum SUV 4.8. There was an 8 mm para-aortic node with a maximal SUV of 3.1. There were hypermetabolic lesions centered in the C5 vertebral body and the left L2 pedicle. There was additional hypermetabolic focus in the anterior right fourth rib but did not have definite CT correlate. The SUV was 5.78. Predominately symmetric FDG uptake about the hips within the bilateral gluteal muscles, bilateral iliopsoas and left tensor fossa lilliam muscles. MRI scan of the C-spine done on October 21, 2020 showed enhancing metastatic lesion at the C5 vertebral body with surrounding paravertebral soft tissue enhancement. 10 ventral epidural enhancement with mild central canal stenosis and moderate multilevel bony foraminal narrowing worse at C3-7 was seen at [facility] by Jerri Layne???ANGELIA flores and Dr. Valdo Osorio on 09/08/2020. Their notes indicate they discussed with Mr. Sandoval that he appears to have locally advanced disease with lymph node involvement. Further recommendation was treatment with chemotherapy carboplatin paclitaxel in combination with radiation. Depending on treatment response he may require surgery. If he is found to have stage IV disease by his staging PET/CT imaging would be systemic chemotherapy alone. He was recommended to have port placement at that time as well. In regards to his LGL he was to continue to follow with and continue on low-dose prednisone and methotrexate as he had adequate control since April 2019. He is to continue following with rheumatology for his RA and may continue using methotrexate, prednisone and hydroxychloroquine. Mr. Sandoval was referred back to us and had follow-up on 09/19/2020. 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 He was also having progressive dysphagia at that time. recommended obtaining guardant 360 testing and placement of Port-A-Cath. He also recommended to get biphosphonate to prevent skeletal related complications. Mr. Sandoval was also referred for MRI scanning of the C-spine with attention to C5 as he was having more pain. Mr. Sandoval was referred to Dr. Banks for placement of a PowerPort. He had placement of the port into the left subclavian vein which on September 29, 2020. He was then seen on 10/24/2020 and the Guardiant 360 results were reviewed. His HER-2/stephanie results were negative, MSI/MMR intact with alteration at CESARIO gene thus he may be responsive to PARP inhibitors. (Guardant 360 showed tumor mutational burden 14.35 e.g. more than 10, pembrolizumab is indicated, and other abnormality including CESARIO W266, CESARIO M6227R, CESARIO splice site indel, FDA approved therapy include olaparib, niraparib, rucaparib, talazoparib can be considered). He was having moderate to severe distress due to left anterior chest wall pain and was referred to the emergency room for further evaluation. He was also referred for PEG tube placement. He had PEG tube placement per Dr. Banks on 11/12/2020. He had confirmation of C5 involvement per MRI of the scan of the C-spine although he was not symptomatic. He was referred to Dr. Connell in [facility] for consideration of palliative radiotherapy. He did see Dr. Connell on 10/28/2020. At that time he recommended palliative radiotherapy to the C5 vertebral body. Mr. Sandoval completed palliative radiotherapy for C5 involvement of his metastatic esophageal cancer on November 17, 2020. He had a prescribed dose of 30 Edmonds which delivered in 10 fractions over 15 elapsed days. PMH: Skin biopsy from left subaxillary area done on 02/05/2019 showed chronic inflammation now being treated with topical agent per Dr. 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 Started on weekly carboplatin/Taxol on December 04, 2020 Mr. Sandoval was started on his first cycle of carboplatin paclitaxel on December 04, 2020. He was able to complete day 8 (reidentified as cycle 2 day 1 due to the interim between day 1 & 8) on December 22, 2020. He did have chemotherapy-induced neutropenia on day 8 with an ANC of 1030. He did receive growth factor support with Neupogen. He required growth factor support with Neupogen again and his counts have held well Follow-up CT PET scan after 3 cycles done on January 31, 2021 showed 3.2 cm distal esophageal thickening with SUV of 9.2 compared to 21.[address] PET scan done at [facility] on September 11, 2020. And FDG positive mediastinal lymph nodes are consistent with local metastatic disease dominant node in the superior right lateral tracheal node measuring 1.9 cm with SUV of 5.7. Other nodes in the right paratracheal territory are less FDG avid. Multifocal hepatic metastatic disease is present in the right and left lobes. Several hepatic hypodensities are minimally FDG positive consistent with previously treated lesions. However, several FDG avid lesions have SUV up to 7.0 indicating active lesions. A right retroperitoneal aortocaval node is FDG positive. Multifocal osseous metastatic disease is present in the left L2 pedicle, right pubic bone, anterior right fourth rib CT PET scan done on April 11, 2021 shows distal esophageal mass no with SUV of 6.2, down from 9.2 previously. Superior right lateral tracheal lymph node now measured 2.3 cm with SUV of 2.9 down from 5.7 previously. Right paratracheal nodes are unchanged. Hepatic metastatic disease is largely stable with improvement seen only in left lobe lesion which has SUV of 5.4 down from 7.7 previously. Retrocaval lymph node is modestly improved. Early multifocal osseous metastatic disease is stable or minimally improved., No new lesions seen. Underwent follow-up EGD on April 13, 2021 showed esophageal mass was noted from 36 to 40 cm but it could be easily passed with a gastroscope. The stomach was examined and the PEG tube was noted to be in good position. Came for follow-up, denies any specific complaint except off and on dysphagia to certain foods otherwise, no nausea or vomiting, no melena or hematochezia, no fever chills, no new bony pains, tolerating palliative therapy well, recently underwent CT PET scan and EGD as a follow-up, patient is here to discuss the results Medications: Aspirin 1 (81 mg) Tablet Oral daily, buPROPion HCl ER (SR) 1 (150 mg) Tablet SR 12 HR Oral daily, clonazePAM 1 (2 mg) Tablet Oral daily, Cymbalta 1 Capsule (of 100 mg) Capsule Delayed Release Particles Oral daily, Esomeprazole Magnesium 1 (40 mg) Capsule Delayed Release Oral daily, Ferrous Gluconate 1 (324 (37.5 fe) mg) Tablet Oral b.i.d., Ferrous Sulfate 1 (325 (65 fe) mg) Tablet Oral daily, Fish Oil 1 (1200 mg) Capsule Oral daily, Folic Acid 1 (1 mg) Tablet Oral daily, Gabapentin 1 (800 mg) Tablet Oral t.i.d., glipiZIDE ER 1 (5 mg) Tablet SR 24 HR Oral daily, Hydroxychloroquine Sulfate 2 Tablet (of 200 mg) Oral daily, Irbesartan 1 (75 mg) Tablet Oral daily, Lovastatin 1 (20 mg) Tablet Oral daily, Magnesium Oxide -Mg Supplement 1 (250 mg) Tablet Oral b.i.d., Methotrexate (2.5 mg) Tablet Oral Take as Directed, Nitroglycerin 1 (0.4 mg) Tablet, sublingual Sublingual PRN, OxyCODONE HCl 1 - 2 (30 mg) Tablet Oral q 4 hours PRN, Pantoprazole Sodium 1 (40 mg) Tablet, enteric coated Oral daily, PARoxetine HCl 1 (20 mg) Tablet Oral b.i.d., PredniSONE 1 Tablet (of 5 mg) Oral daily, Sildenafil Citrate 1 (25 mg) Tablet Oral PRN, tiZANidine HCl 1 Capsule (of 4 mg) Tablet Oral q 12 hours PRN Allergies: Lisinopril Review of Systems: Review of Systems is not available for this patient. Vital Signs: Performed on Apr 14, 2021 15:48 Height - 72.00 in Weight - 185 lbs (HIGH) BSA - 2.06 sq.m BMI - 25.09 Temperature - 98.4 F Pulse - 69 /min Respiration - 15 /min BP - 96/59 mm(hg) O2 Sat - 98 % Pain - 4 Fatigue - 0 Performance Status: Perf. Status is not available for this patient. Physical Examination: Physical Exam-Comments is not available for this patient. Lab/Imaging: Test performed on Apr 14, 2021 14:45 Sodium 139 mmol/L Potassium 4.2 mmol/L Chloride 107 mmol/L CO2 24 mmol/L Anion Gap 12.2 BUN 13 mg/dL Creatinine 0.6 mg/dL Cr Clearance (Est) 163.8400 mL/min eGFR 138.9 mL/min Glucose 103 mg/dL Osmolality - Calculated 288 mOsm/kg Calcium 7.9 mg/dL Protein, Total 5.9 g/dL Albumin 3.6 g/dL Globulin 2.3 g/dL Bilirubin, Total 0.2 mg/dL ALT (SGPT) 12 U/L AST (SGOT) 15 U/L Alkaline Phosphatase 98 IU/L WBC 7.8 10 3/uL RBC 2.83 10 6/uL HGB 8.9 g/dL HCT 28.9 % MCV 102.1 fl MCH 31.4 pg MCHC 30.8 g/dL RDW 20.6 % Platelet Count 152 10 3/cmm MPV 9.7 fL Neutrophils 6.33 10 3/uL Lymphocytes 0.6 10 3/uL Monocytes 0.7 10 3/uL Eosinophils 0.0 10 3/uL Basophils 0.0 10 3/uL Neutrophil % 80.7 % Lymphocyte % 7.4 % Monocyte % 8.3 % Eosinophil % 0.1 % Basophils % 0.4 % NRBC % 0 % Test performed on Mar 11, 2021 13:04 Ferritin 551 ng/mL Iron 21 mcg/dL Vitamin B12 1032 pg/mL Iron Binding Capacity (TIBC) 210 mcg/dl % Iron Saturation 10.0 % UIBC 189 mcg/dL Test performed on Mar 05, 2021 09:00 Manual Segs % 69 % Manual Bands % 15.0 % Manual Lymphs % 10 % Atypical Lymphs % 1.0 % Total Cells Counted 100 Manual Monos % 3.0 % Manual Eos % 0 % Manual Basos % 0.0 % Metamyelocytes % 1.0 % Myelocytes % 1.0 % CBC Slide Review Slide Review Perform Anisocytosis 2+ Poikilocytosis 2+ Platelet Estimate Normal Manual Segs Abs 3.0 10/cmm Manual Bands Abs 0.6 10 3/cmm Manual Neutrophils Abs 3.6 10 3/cmm Manual Lymphocytes Abs 0.5 10 3/cmm Manual Monocytes Abs 0.1 10 3/cmm Manual Eosinophils Abs 0.0 10 3/cmm Manual Basophils Abs 0.0 10 3/cmm Test performed on Feb 11, 2021 13:34 Macrocytosis 1+ Ovalocytes Trace Schistocytes Trace Impression: 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 CT PET scan done on September 11, 2020 at [facility] shows mild thickening of the distal thoracic esophagus extending into gastric cardia with FDG uptake 21.2, Multiple hypermetabolic hepatic lesions largest is 3.3 x 3.1 cm in hepatic segment 7 SUV 11.1 Status post radiation therapy to C5 which he completed on November 17, 2020 Starting on weekly carboplatin/Taxol on December 04, 2020 Hypermetabolic lymphadenopathy within the gastrohepatic and retroperitoneal station, and para-aortic. There are hypermetabolic lytic lesion centered in C5 vertebral body, and left L2 pedicle, and anterior right fourth rib. 2 . 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 A reactive process cannot be entirely excluded. 3. Rheumatoid arthritis diagnosed in 2003 on prednisone, HCQ, methotrexate, Methotrexate discontinued on December 16, 2020 due to progressive leukopenia while on chemotherapy Bilateral subaxillary skin lesion questionable etiology, was referred to Dr. 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 [facility], patient underwent skin biopsy from left subaxillary area, as per patient it shows chronic inflammation and now being treated with topical agent Status post radiation therapy to C5 , Completed in December 2020 Started on palliative chemotherapy with carboplatin/Taxol on December 04, 2020 CT PET scan finding which Was done on January 31, 2021 showed 3.2 cm distal esophageal thickening with SUV of 9.2, compared to 21.[address] PET scan done at [facility] on September 11, 2020 malignant mediastinal and upper abdominal lymphadenopathy which was seen on previous CT PET scan and multiple hepatic lesions, improvement now SUV of 7 compared to 11 previously and many of the hepatic lesion shows no FDG activity. No new bony lesion but persistent right pubic bone, left L2 pedicle, anterior right fourth rib lesion Plan: Discussed with patient regarding his labs white blood count 7.8 hemoglobin 8.9 hematocrit 28.9 platelets 152,000 CMP within normal limits and CT PET scan finding which showed mild interval improvement in primary esophageal cancer, stable or mildly improved mediastinal lymph nodes/hepatic metastatic disease/osseous metastatic disease and EGD showed improvement in the distal esophageal mass, no gastroscope could pass through. Clinically, patient doing well with no new signs symptom suggestive of disease progression still has mild to moderate dysphagia but tolerating certain food orally well, and using his G-tube. Overall, good palliation, tolerating palliative therapy well, because of underlying autoimmune disorder, addition of immunotherapy with checkpoint inhibitor was not considered but discussed, patient is reluctant, second opinion from tertiary care center was offered but patient and his declined,, as his CT PET scan shows stable/some improvement, so we will continue with same regimen as long as tolerated and then he will return to clinic on Tuesday to resume his palliative chemotherapy with weekly carboplatin/Taxol Signed By: Asaf Ramachandran M.D. <<Signature on File>>
[2021-04-20] MEDS: sodium chloride 0.9% 250 ML 75 ML IV (11:00)
[2021-04-20] MEDS: palonosetron 0.25 mg/5 mL SDV IV (11:00)
[2021-04-20] MEDS: famotidine 20 mg/2 mL INJ IVP (11:01)
[2021-04-20] MEDS: diphenhydrAMINE 50 mg/mL SDV 1mL 25 MG IV (11:03)
[2021-04-20] MEDS: denosumab 120 mg SDV SUBCUT (11:05)
[2021-04-20] MEDS: fosaprepitant 150 MG in sodium chloride 0.9% 150 ML 300 MG IV (11:10)
[2021-04-21] MEDS: sodium chloride 0.9% 1,000 ML 999 ML IV (11:30)
[2021-04-27 15:16] LABS: Eosinophils % 0.7 %; Hematocrit 29.3 % (42.0-52.0); Hemoglobin 9.1 g/dL (11.7-16.6); Lymphocytes # 2.1 10^3/uL (0.8-4.8); Mean Corpuscular HGB Conc 31.1 g/dL (30.0-36.0); Mean Corpuscular Hemoglobin 31.5 pg (28.0-34.0); Mean Corpuscular Volume 101.4 fl (80-94); Mean Platelet Volume 10.2 fL (7.4-10.4); Monocytes # 0.5 10^3/uL (0.2-0.9); Nucleated Red Blood Cells % 0 %; Platelet Count 171 10^3/cmm (130-400); Red Blood Count 2.89 10^6/uL (4.1-5.3)
[2021-04-27 15:42] LABS: Alanine Aminotransferase 25 U/L (0-41); Albumin Level 3.7 g/dL (3.5-5.2); Alkaline Phosphatase 112 IU/L (40-130); Anion Gap 14.3 (5-19); Aspartate Amino Transferase 24 U/L (0-40); Blood Urea Nitrogen 19 mg/dL (6-20); Calcium 8.3 mg/dL (8.5-10.5); Carbon Dioxide 24 mmol/L (22-29); Chloride 105 mmol/L (98-107); Globulin 2.3 g/dL (1.3-4.6); Glomerular Filtration Rate 138.9 mL/min (90-130); Glucose 73 mg/dL (65-115); Osmolality Calculated 291 mOsm/kg (285-295); Potassium 3.3 mmol/L (3.5-5.1); Sodium 140 mmol/L (136-145); Total Bilirubin 0.2 mg/dL (0.15-1.2)
[2021-04-27 16:43] LABS: Slide Review Slide Review Perform
[2021-04-27 16:45] LABS: Neutrophils # 0.39 10^3/uL (1.8-7.7)
[2021-04-28] MEDS: sodium chloride 0.9% 1,000 ML 999 ML IV (10:00)
[2021-04-28] MEDS: levofloxacin-dextrose 5 % 500 MG/100 ML PREMIX 100 MG IV (10:40)
[2021-04-30 09:52] LABS: Basophils % 0.6 %; Eosinophils % 0.2 %; Hematocrit 29.2 % (42.0-52.0); Lymphocytes # 2.5 10^3/uL (0.8-4.8); Lymphocytes % 39.9 %; Mean Corpuscular HGB Conc 30.8 g/dL (30.0-36.0); Mean Corpuscular Volume 103.9 fl (80-94); Mean Platelet Volume 9.2 fL (7.4-10.4); Monocytes % 15.9 %; Neutrophils # 2.63 10^3/uL (1.8-7.7); Nucleated Red Blood Cells # 0.1 /100WBC; Nucleated Red Blood Cells % 0.8 %; Platelet Count 147 10^3/cmm (130-400); Red Blood Count 2.81 10^6/uL (4.1-5.3); Red Cell Distribution Width 18.2 % (12.1-15.1); White Blood Count 6.3 10^3/uL (4.0-10.0)
[2021-04-30 11:24] LABS: Slide Review Slide Review Perform
--- NOTE | 2021-05-09 13:27 | ONC FU_ITS ---
[facility] Patient Note Patient: Maximino Sandoval Unit #: [id number]: 1965 Dictated By: Salome BurkDate of Visit: Apr 28, 2021 Onc MED Follow-Up/Prog Note Chief Complaint: Esophageal cancer. 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 He has a history of T-cell large granular leukemia, diagnosed in April 2019, and rheumatoid arthritis, diagnosed in 2003. He had been on treatment with methotrexate and prednisone since April 2020. He then presented earlier this year with anemia and difficulty swallowing. His EGD on 08/14/2020 showed esophageal thickening with friable mucosa, biopsy of which showed moderate to poorly differentiated invasive adenocarcinoma. The tumor was found to be HER-2/stephanie negative and MSI I stable. Next generation sequencing was positive for an alteration of the CESARIO gene. It also showed high mutational burden at 14.35. Staging PET/CT on 09/11/2020 showed multiple sites of lymph node involvement, multiple hepatic metastases, and multiple sites of metastatic bone involvement. He initially underwent palliative radiation to the C5 vertebral body. He completed treatment on 11/17/2020 to a total dose of 3000 cGy administered in 10 fractions. He underwent placement of Port-A-Cath for venous access and he required placement of PEG tube for nutritional support. On 12/04/2020 he began cycle 1 of systemic chemotherapy with carboplatin/paclitaxel. He developed chemotherapy-induced neutropenia, but with growth factor support he was able to continue treatment at 3-week intervals on a day 1/day 8 schedule. His repeat PET/CT on 01/31/2021 showed FDG positive distal esophageal mass, malignant mediastinal and upper abdominal lymphadenopathy, hepatic metastatic disease, and multifocal osseous metastatic disease. Also noted was inflammatory activity at the gastrostomy site. There is no comparison to the prior PET/CT. He continued his same chemotherapy. He began his 7th cycle of treatment on 04/02/2021. Repeat EGD on 04/13/2021 showed a mass in the esophagus at 36 to 40 cm, but it was easily passed with the gastroscope. The PEG tube was noted to be in good position, though with some skin necrosis around the gastrostomy site. On 05/01/2021 he underwent conversion to gastrojejunostomy tube. Since then, he has continued to have leakage around the tube site with oral intake or with use of the PEG tube. He did of cycle 7 carboplatin paclitaxel as well as denosumab on April 20, 2021. He is here today for follow-up and consideration of day 8 of cycle 7. Overall his performance status is still very limited. He states he does feel some better but not dramatically. He still has a hard time getting his ADLs done without assistance. Having shortness of breath but states it is no worse than what it has been. He continues to have problems with his ostomy tube but sees Dr. Banks later this afternoon for assessment of that. He states he still leaking anytime he does any kind of fluid.. He denies any fever or chills. He said no signs or symptoms of infection for at least the last 72 hours. He denies any diarrhea. He has some residual neuropathy but states is no worse than it has been over the last month or so. It is not worsening with treatment at this time. He denies any lower extremity edema. He denies any new pain. His ECOG is 2. Past Medical History: Yossi inhibitor intolerance Anemia Arthritis Fuller's esophagus Coronary artery disease Diverticulosis Hyperlipidemia Hypertension Rheumatoid arthritis Type II diabetes T-LGL (Tcell large granular leukemia) in 2019 Past Surgical History: Coronary angioplasty x2 with stent PEG tube placement per Dr. Banks in [address] Banks in 2020 Covid vaccine #2 moderna in 2020 Covid vaccine #1 moderna in 2020 Colonoscopy in 2018 Allergies: Lisinopril Medications: Aspirin 1 (81 mg) Tablet Oral daily buPROPion HCl ER (SR) 1 (150 mg) Tablet SR 12 HR Oral daily clonazePAM 1 (2 mg) Tablet Oral daily [facility] Senna Plus 2 Tablet (of 8.6-50 mg) Oral daily Cymbalta 1 Capsule (of 100 mg) Capsule Delayed Release Particles Oral daily Ferrous Gluconate 1 (324 (37.5 fe) mg) Tablet Oral b.i.d. Ferrous Sulfate 1 (325 (65 fe) mg) Tablet Oral daily Fish Oil 1 (1200 mg) Capsule Oral daily Folic Acid 1 (1 mg) Tablet Oral daily Gabapentin 1 (800 mg) Tablet Oral t.i.d. glipiZIDE ER 1 (5 mg) Tablet SR 24 HR Oral daily Hydroxychloroquine Sulfate 2 Tablet (of 200 mg) Oral daily Irbesartan 1 (75 mg) Tablet Oral daily Lovastatin 1 (20 mg) Tablet Oral daily Magnesium Oxide -Mg Supplement 1 (250 mg) Tablet Oral b.i.d. Nitroglycerin 1 (0.4 mg) Tablet, sublingual Sublingual PRN OxyCODONE HCl 1 - 2 (30 mg) Tablet Oral q 4 hours PRN Pantoprazole Sodium 1 (40 mg) Tablet, enteric coated Oral daily PARoxetine HCl 1 (20 mg) Tablet Oral b.i.d. Sildenafil Citrate 1 (25 mg) Tablet Oral PRN tiZANidine HCl 1 Capsule (of 4 mg) Tablet Oral q 12 hours PRN Family History: Mr. Sandoval's mother is alive. Mr. Sandoval's father is . Mr. Sandoval has 1 brother who is alive. He has 3 sisters: 3 alive. patient has a family history of colon and skin cancer. Social History: Mr. Sandoval is and he is a disabled. He is a daily smoker who has smoked 0.5 packs/day for 37 years. He has no history of drinking. He has indicated exposure to the following products: marijuana. Mr. Sandoval reports the following support systems: lives with spouse, significant other, family, or friends, lives in own house, supportive family/friends willing to assist with needs, and adequate transportation available for expected visits. His diet consists of regular meals. He indicates his activity level as: daily activities. Has been prescribed medical marijuana for pain relief. Review Of Symptoms: <See Above> Vital Signs: Performed on Apr 28, 2021 08:36 Height - 72.00 in Weight - 180 lbs (LOW) BSA - 2.04 sq.m BMI - 24.41 Temperature - 97.9 F (LOW) Pulse - 82 /min Respiration - 18 /min BP - 99/63 mm(hg) O2 Sat - 99 % Pain - 3 Fatigue - 7,2 - Ambulatory/capable of all self-care, unable to perform any work activities. Up and about more than 50% of waking hours. (ECOG) Physical Examination: Constitutional Alert, oriented, no acute distress. Skin pink, warm and dry. Head Normocephalic; atraumatic. Eyes Conjunctivae and sclerae are clear and without icterus. Pupils are reactive and equal. ENMT No oral exudates, ulcers, masses, thrush or mucositis. Oropharynx clear. Tongue normal. Neck Supple without masses or thyromegaly. No jugular venous distension. Hematologic/Lymphatic No petechiae or purpura. No tender or palpable lymph nodes in the cervical or supraclavicular areas. Respiratory Lungs are clear to auscultation without rhonchi or wheezing. Cardiovascular Regular rate and rhythm of heart without murmurs,clicks, gallops or rubs. Chest Chest is symmetric without chest wall deformities. Port site is unremarkable. Back/Spine Non-tender to palpation. Extremities No visible deformities, no cyanosis, clubbing or edema. Musculoskeletal No tenderness or swelling, normal range of motion without obvious weakness. Integumentary No rashes or lesions. Neurologic No sensory or motor deficits, normal cerebellar function, normal gait. Psychiatric Alert and oriented times three. Coherent speech. Verbalizes understanding of our discussions today. Laboratory:[ See flow sheet Impression: 1. Moderate to poorly differentiated invasive adenocarcinoma of the esophagus, stage IV, with PET/CT evidence of metastatic involvement in lymph nodes, liver, and bone. His tumor was found to be HER-2 negative and MSI stable. Next generation sequencing showed high mutational burden at 14.35 and it also showed alteration in the CESARIO gene. 2. T-cell large granular leukemia. 3. Rheumatoid arthritis. 4. Hypertension. 5. Hyperlipidemia. 6. Type 2 diabetes. 7. Coronary artery disease. 8. Degenerative arthritis. Plan/Problems Addressed at this Visit: 1. moderate to poorly differentiated invasive adenocarcinoma of the esophagus, stage IV, with PET/CT evidence of metastatic involvement in lymph nodes, liver, and bone. His tumor was found to be HER-2 negative and MSI stable. Next generation sequencing showed high mutational burden at 14.35 and it also showed alteration in the CESARIO gene. He has been undergoing systemic chemotherapy with carboplatin/paclitaxel. Cycle 1 day 1 carboplatin paclitaxel was given on April 20, 2021. He presents today with significant neutropenia but is afebrile. A. Hold planned day 8 carboplatin paclitaxel due to neutropenia. B. Today's labs reviewed in detail discussed with Mr. Sandoval and his family and a copy was given to him. WBC 3.0, hemoglobin 9.1, platelets 131,000, and ANC is 390. Potassium 3.3 creatinine 0.6 random glucose 73 and LFTs are normal. C. We will have him do Neupogen 480 mcg daily for 3 days and recheck his CBC to see if he needs growth factors over the weekend. D. He has follow-up for next week with CBC CMP plan to have him reassessed at that time CV need to resume his chemotherapy. E. He will be given a prescription for levofloxacin 500 mg 1 daily for 7 days given his severe neutropenia. We will give his first dose here IV as he will require hydration for supportive ca, productive cough, abnormal sinus drainage urinary frequency, hesitancy or burning. Re today anyway. F. . Ms. Sandoval was instructed to contact us in interim should questions or problems arise. Advised to call us in fever equal to or over 100.4. productive cough, abnormal sinus drainage or any signs of infection. Signed By: Salome Burk-, AOCNP Asaf Ramachandran MD <<Signature on File>>
== END 2021-05-03 23:59 | disposition home or self-care (01) ==
LOC: ONCMED 06:14
PROVIDERS: Internal Medicine Hematology & Oncology; PCP Nurse Practitioner; Visit Provider Internal Medicine Medical Oncology
DX: Z51.11 Encounter for antineoplastic chemotherapy (principal); C15.5 Malignant neoplasm of lower third of esophagus; C79.51 Secondary malignant neoplasm of bone; D47.3 Essential (hemorrhagic) thrombocythemia; R59.0 Localized enlarged lymph nodes; M06.9 Rheumatoid arthritis, unspecified; Z79.52 Long term (current) use of systemic steroids; Z79.899 Other long term (current) drug therapy; Z92.21 Personal history of antineoplastic chemotherapy; Z92.3 Personal history of irradiation
CPT/HCPCS: 36591; 80053; 85025; 87635; 96360; 96361; 96365; 96367; 96372; 96375; 96401; 96413; 96417; 99214; 99215; J0897; J1100; J1200; J1453; J1956; J2469; J3490; J7030; J7040; J7050; J9045; J9267; Q5101

== ENCOUNTER 2021-05-01 06:07 | Day surgery (SDC) | payer MEDICARE, SELFPAY ==
[2021-05-01 06:41] VITALS: BP 121/70; PULSE 77; RESP 16; TEMP 37.2; O2SAT 98
--- NOTE | 2021-05-01 06:56 | ANES.PREANE2 ---
Pre-Anesthetic Assessment Pre-Anesthetic Assessment: Height/Weight: Height 1.75 m Weight 81.647 kg Temp Pulse Resp BP Pulse Ox 98.9 F 77 16 121/70 98 05/01/21 06:41 05/01/21 06:41 05/01/21 06:41 05/01/21 06:41 05/01/21 06:41 Preop Diagnosis: upper gi symptoms Proposed Procedure: Operation Date: 05/01/21 07:30 Proposed Procedures p EGD [id number] R13.0 T85.598A(Not Applicable) - Wayne Banks MD s Converison to Gastro Jejunostomy Tube(Not Applicable) - Wayne Banks MD Was Beta Jenna taken within 24 hours: N/A Was Clonidine taken within 24 hours: N/A Last intake: Intake Last Liquid Date 04/30/21 Last Liquid Time 21:00 Last Solid Date 04/30/21 Last Solid Time 21:00 Social: Social History: No alcohol Packs per day: .5 Exam: Pre-Anes Outpt Exam: alert, oriented x 3 and regular rate & rhythm Airway: Submandibular: WNL Cervical ROM: WNL MP: 3 Dentition: Full History/ROS: No significant history except as noted Pulmonary: Pulmonary: None reported CV/HEM: CV/HEM: NV (2007, 2008, 2019. stents X3) : : None reported Hepatic: Hepatic: None reported GI: GI: GERD Metabolic: Metabolic: DM Musc/skel: Musc/skel: None reported Neuropsych: Neuropsych: None reported Anesthetic Plan: ASA status: 3 Anesthesia: Anesthesia Evaluation and MAC Risk of > 500 ml blood loss (7ml/kg in children): No PFSH Anesthesia PFSH: Medical History Anemia Atypical lymphocytosis Chronic kidney disease COPD (chronic obstructive pulmonary disease) Coronary artery disease Diabetes mellitus Dilutional hyponatremia (~07/2019) Dyslipidemia Esophageal adenocarcinoma Gastro-esophageal reflux disease without esophagitis Generalized anxiety disorder Hypertension Lumbago Myocardial infarct Rheumatoid arthritis Surgical History H/O heart artery stent History of colonoscopy History of endoscopy (04/13/21) 08/14/20 - Esophageal mass Port-A-Cath in place (09/29/20) Status post insertion of percutaneous endoscopic gastrostomy (PEG) tube (11/12/20) Family History Family/Other Cancer Family members in general Diabetes Family members in general Hypothyroid Family members in general Social History Quit status (tobacco): quit date established Second hand smoke exposure: No Smoking risk assessment/counseling performed?: No Alcohol intake: never Desire information about alcohol rehabilitation?: No Counseling given: No Desire information about substance/drug rehabilitation?: No Counseling given: No Caregiver/support person: No Lives independently: Yes Household members: significant other Marital status: Single History of recent travel: No Current gender identity: Male Data Anesthesia Cardiac Studies: No Data to Display
[2021-05-01] MEDS: sodium chloride 0.9% 1,000 ML 30 ML IV (07:02)
[2021-05-01 07:12] LABS: Glucose Point of Care 89 mg/dL (70-110)
--- NOTE | 2021-05-01 07:25 | W.PM.OPSUD ---
Surgery/Procedure H&P Update DATE OF PROCEDURE: May 01, 2021 DATE H&P PERFORMED: 04/28/21 H&P UPDATE INFORMATION: I have reviewed H&P completed within last 30 days, I have examined patient prior to procedure and No changes to prior documentation PREOP DIAGNOSIS: upper gi symptoms PLANNED PROCEDURE: Operation Date: 05/01/21 07:30 Proposed Procedures p EGD [id number] R13.0 T85.598A(Not Applicable) - Wayne Banks MD s Converison to Gastro Jejunostomy Tube(Not Applicable) - Wayne Banks MD
[2021-05-01] MEDS: metoclopramide 5 mg/mL SDV 2 mL 10 MG IVP (08:06)
[2021-05-01 08:35] VITALS: BP 82/54; PULSE 83; RESP 16; TEMP 36.6; O2SAT 93
--- NOTE | 2021-05-01 12:30 | ANE.PACU2 ---
Inpatient post-anesthesia follow up: Airway intact: Yes Vital signs: Temperature 97.9 F Pulse Rate 83 Respiratory Rate 16 Blood Pressure 82/54 Pulse Oximetry 93 Oxygen Delivery Me thod Room Air Oxygen Flow Rate Fraction of Inspir ed Oxygen Hydration adequate: Yes Nausea and vomiting: No Pain level: 1 Mental status: Baseline
== END 2021-05-01 09:11 | disposition home or self-care (01) ==
PROVIDERS: PCP Nurse Practitioner; Visit Provider Surgery
PROC: 0DJ08ZZ Inspection of Upper Intestinal Tract, Via Natural or Artificial Opening Endoscopic (ICD-10-PCS; CPT 43235; principal; 2021-05-01 07:30)
PROC: 0DH63UZ Insertion of Feeding Device into Stomach, Percutaneous Approach (ICD-10-PCS; CPT 43246; 2021-05-01 07:30)
DX: K94.23 Gastrostomy malfunction (principal); Y83.8 Other surgical procedures as the cause of abnormal reaction of the patient, or of later complication, without mention of misadventure at the time of the procedure; C15.9 Malignant neoplasm of esophagus, unspecified; K21.9 Gastro-esophageal reflux disease without esophagitis; E11.22 Type 2 diabetes mellitus with diabetic chronic kidney disease; I12.9 Hypertensive chronic kidney disease with stage 1 through stage 4 chronic kidney disease, or unspecified chronic kidney disease; N18.9 Chronic kidney disease, unspecified; J44.9 Chronic obstructive pulmonary disease, unspecified; F17.210 Nicotine dependence, cigarettes, uncomplicated; Z79.899 Other long term (current) drug therapy; Z79.84 Long term (current) use of oral hypoglycemic drugs; Z79.4 Long term (current) use of insulin; Z79.891 Long term (current) use of opiate analgesic
CPT/HCPCS: 36416; 44373; 82962; 96361; 96374; J2704; J2765; J7030

== ENCOUNTER 2021-05-05 06:17 | Outpatient (RCR) | payer MEDICARE, SELFPAY ==
[2021-05-04 13:29] LABS: Basophils % 0.5 %; Eosinophils % 0.1 %; Hematocrit 30.4 % (42.0-52.0); Hemoglobin 9.5 g/dL (11.7-16.6); Lymphocytes # 1.8 10^3/uL (0.8-4.8); Lymphocytes % 23.3 %; Mean Corpuscular HGB Conc 31.3 g/dL (30.0-36.0); Mean Corpuscular Hemoglobin 31.8 pg (28.0-34.0); Mean Corpuscular Volume 101.7 fl (80-94); Mean Platelet Volume 9.9 fL (7.4-10.4); Monocytes # 1.2 10^3/uL (0.2-0.9); Neutrophils # 4.55 10^3/uL (1.8-7.7); Neutrophils % 58.9 %; Nucleated Red Blood Cells % 0 %; Platelet Count 186 10^3/cmm (130-400); Red Blood Count 2.99 10^6/uL (4.1-5.3); Red Cell Distribution Width 17.8 % (12.1-15.1); White Blood Count 7.7 10^3/uL (4.0-10.0)
[2021-05-04 13:33] LABS: Alanine Aminotransferase 20 U/L (0-41); Albumin Level 3.5 g/dL (3.5-5.2); Alkaline Phosphatase 149 IU/L (40-130); Anion Gap 15.5 (5-19); Aspartate Amino Transferase 24 U/L (0-40); Blood Urea Nitrogen 16 mg/dL (6-20); Carbon Dioxide 23 mmol/L (22-29); Chloride 102 mmol/L (98-107); Globulin 2.5 g/dL (1.3-4.6); Glomerular Filtration Rate 138.9 mL/min (90-130); Glucose 98 mg/dL (65-115); Osmolality Calculated 285 mOsm/kg (285-295); Potassium 3.5 mmol/L (3.5-5.1); Sodium 137 mmol/L (136-145); Total Bilirubin 0.2 mg/dL (0.15-1.2)
--- NOTE | 2021-05-05 20:14 | ONC FU_ITS ---
Dr. Caldwell Patient Follow-Up Note Patient: Maximino Sandoval Unit #: [id number]: 1965 Dicatated By: Enzo Caldwell M.D.Date of Visit:May 05, 2021 Onc Med Follow-up/Prog Note Chief Complaint: Esophageal cancer. 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 He has a history of T-cell large granular leukemia, diagnosed in April 2019, and rheumatoid arthritis, diagnosed in 2003. He had been on treatment with methotrexate and prednisone since April 2020. He then presented earlier this year with anemia and difficulty swallowing. His EGD on 08/14/2020 showed esophageal thickening with friable mucosa, biopsy of which showed moderate to poorly differentiated invasive adenocarcinoma. The tumor was found to be HER-2/stephanie negative and MSI I stable. Next generation sequencing was positive for an alteration of the CESARIO gene. It also showed high mutational burden at 14.35. Staging PET/CT on 09/11/2020 showed multiple sites of lymph node involvement, multiple hepatic metastases, and multiple sites of metastatic bone involvement. He initially underwent palliative radiation to the C5 vertebral body. He completed treatment on 11/17/2020 to a total dose of 3000 cGy administered in 10 fractions. He underwent placement of Port-A-Cath for venous access and he required placement of PEG tube for nutritional support. On 12/04/2020 he began cycle 1 of systemic chemotherapy with carboplatin/paclitaxel. He developed chemotherapy-induced neutropenia, but with growth factor support he was able to continue treatment at 3-week intervals on a day 1/day 8 schedule. His repeat PET/CT on 01/31/2021 showed FDG positive distal esophageal mass, malignant mediastinal and upper abdominal lymphadenopathy, hepatic metastatic disease, and multifocal osseous metastatic disease. Also noted was inflammatory activity at the gastrostomy site. There is no comparison to the prior PET/CT. He continued his same chemotherapy. He began his 7th cycle of treatment on 04/02/2021. He is seen that day 8 of cycle 7. He says he is feeling all right, though he has had ongoing problems related to leakage around his PEG tube site. Repeat EGD on 04/13/2021 showed mass in the esophagus at 36 to 40 cm, but it was easily passed with the gastroscope. The PEG tube was noted to be in good position, though with some skin necrosis around the gastrostomy site. On 05/01/2021 he underwent conversion to gastrojejunostomy tube. Since then, he has continued to have leakage around the tube site with oral intake or with use of the PEG tube. He says his energy is bad, his activity is very limited. ECOG score is 2. Despite the problems with the PEG tube and with relatively limited oral intake, he recently has gained a little weight. He does not have fever or night sweats. He does continue to have difficulty swallowing. He has some cough. He does not complain of shortness of breath or chest pain. He has been having a lot of nausea. He has occasional acid reflux. He has some ongoing problems with constipation. Bladder function remains adequate. He has joint pain, mainly in his hands, knees, and hips. He occasionally has headache. He has some tingling in his feet. He has no other focal neurologic symptoms. Medications: Aspirin 1 (81 mg) Tablet Oral daily, buPROPion HCl ER (SR) 1 (150 mg) Tablet SR 12 HR Oral daily, clonazePAM 1 (2 mg) Tablet Oral daily, Cymbalta 1 Capsule (of 100 mg) Capsule Delayed Release Particles Oral daily, Ferrous Gluconate 1 (324 (37.5 fe) mg) Tablet Oral b.i.d., Ferrous Sulfate 1 (325 (65 fe) mg) Tablet Oral daily, Fish Oil 1 (1200 mg) Capsule Oral daily, Folic Acid 1 (1 mg) Tablet Oral daily, Gabapentin 1 (800 mg) Tablet Oral t.i.d., glipiZIDE ER 1 (5 mg) Tablet SR 24 HR Oral daily, Hydroxychloroquine Sulfate 2 Tablet (of 200 mg) Oral daily, Irbesartan 1 (75 mg) Tablet Oral daily, Lovastatin 1 (20 mg) Tablet Oral daily, Magnesium Oxide -Mg Supplement 1 (250 mg) Tablet Oral b.i.d., Nitroglycerin 1 (0.4 mg) Tablet, sublingual Sublingual PRN, OxyCODONE HCl 1 - 2 (30 mg) Tablet Oral q 4 hours PRN, Pantoprazole Sodium 1 (40 mg) Tablet, enteric coated Oral daily, PARoxetine HCl 1 (20 mg) Tablet Oral b.i.d., Sildenafil Citrate 1 (25 mg) Tablet Oral PRN, tiZANidine HCl 1 Capsule (of 4 mg) Tablet Oral q 12 hours PRN Allergies: Lisinopril Vital Signs: Performed on May 05, 2021 08:34 Height - 72.00 in Weight - 181.4 lbs (HIGH) BSA - 2.04 sq.m BMI - 24.60 Temperature - 97.8 F (LOW) Pulse - 104 /min (HIGH) Respiration - 18 /min BP - 85/44 mm(hg) (LOW) O2 Sat - 95 % (LOW) Pain - 4 Fatigue - 6 Physical Examination: Constitutional - He appears somewhat weak generally, Eyes - Sclerae nonicteric. Conjunctivae clear, ENMT - No lesions noted in the oral cavity, Hematologic/Lymphatic - No cervical, clavicular, or axillary adenopathy, Respiratory - Lungs sound clear, Cardiovascular - Heart rhythm is regular. There is no murmur, gallop, or rub noted, Abdomen - Mildly distended. Liver and spleen are not enlarged. There is no abdominal mass or ascites noted and there is no inguinal adenopathy, Extremities - No edema. There are purpuric lesions on both arms, Neurologic - No focal neurologic deficits noted. Lab/Imaging: Test performed on May 04, 2021 16:35 Creatinine 0.6 mg/dL Cr Clearance (Est) 163.84 mL/min Test performed on May 04, 2021 12:48 Sodium 137 mmol/L Potassium 3.5 mmol/L Chloride 102 mmol/L CO2 23 mmol/L Anion Gap 15.5 BUN 16 mg/dL eGFR 138.9 mL/min Glucose 98 mg/dL Osmolality - Calculated 285 mOsm/kg Calcium 9.0 mg/dL Protein, Total 6.0 g/dL Albumin 3.5 g/dL Globulin 2.5 g/dL Bilirubin, Total 0.2 mg/dL ALT (SGPT) 20 U/L AST (SGOT) 24 U/L Alkaline Phosphatase 149 IU/L WBC 7.7 10 3/uL RBC 2.99 10 6/uL HGB 9.5 g/dL HCT 30.4 % MCV 101.7 fl MCH 31.8 pg MCHC 31.3 g/dL RDW 17.8 % Platelet Count 186 10 3/cmm MPV 9.9 fL Neutrophils 4.55 10 3/uL Lymphocytes 1.8 10 3/uL Monocytes 1.2 10 3/uL Eosinophils 0.0 10 3/uL Basophils 0.0 10 3/uL Neutrophil % 58.9 % Lymphocyte % 23.3 % Monocyte % 16.0 % Eosinophil % 0.1 % Basophils % 0.5 % NRBC % 0 % Problem List: 1. Moderate to poorly differentiated invasive adenocarcinoma of the esophagus, stage IV, with PET/CT evidence of metastatic involvement in lymph nodes, liver, and bone. His tumor was found to be HER-2 negative and MSI stable. Next generation sequencing showed high mutational burden at 14.35 and it also showed alteration in the CESARIO gene. 2. T-cell large granular leukemia. 3. Rheumatoid arthritis. 4. Hypertension. 5. Hyperlipidemia. 6. Type 2 diabetes. 7. Coronary artery disease. 8. Degenerative arthritis. Problems Addressed with this Encounter and Plan: Patient with moderate to poorly differentiated invasive adenocarcinoma of the esophagus, stage IV, with PET/CT evidence of metastatic involvement in lymph nodes, liver, and bone. His tumor was found to be HER-2 negative and MSI stable. Next generation sequencing showed high mutational burden at 14.35 and it also showed alteration in the CESARIO gene. He has been undergoing systemic chemotherapy with carboplatin/paclitaxel. He is now at day 8 of his 7th cycle of treatment. It is unclear to what extent he has responded to the treatment. There was continued metastatic involvement noted on his restaging PET/CT as well as persistent uptake at the site of the primary tumor. However, does appear that there will be a low likelihood of further benefit with continuation of this regimen. We discussed the fact that there are other potential treatment options with his tumor showing high mutational burden and with the presence of alterations in the CESARIO gene. At this point he is willing to consider transitioning to a trial of immunotherapy, though he is advised that there are potential side effects, most significantly risk that it will exacerbate his rheumatoid arthritis. That said, he will now proceed with a trial of therapy with pembrolizumab 200 mg by IV infusion every 3 weeks, subject to verification of insurance coverage. Signed By: Enzo Caldwell M.D. <<Signature on File>>
== END 2021-05-07 08:00 | disposition home or self-care (01) ==
LOC: ONCMED 06:17
PROVIDERS: PCP Nurse Practitioner; Visit Provider Internal Medicine Medical Oncology
DX: C15.5 Malignant neoplasm of lower third of esophagus (principal); C77.8 Secondary and unspecified malignant neoplasm of lymph nodes of multiple regions; C78.7 Secondary malignant neoplasm of liver and intrahepatic bile duct; C79.51 Secondary malignant neoplasm of bone; M06.9 Rheumatoid arthritis, unspecified; I10 Essential (primary) hypertension; E78.5 Hyperlipidemia, unspecified; E11.59 Type 2 diabetes mellitus with other circulatory complications; I25.10 Atherosclerotic heart disease of native coronary artery without angina pectoris; M19.90 Unspecified osteoarthritis, unspecified site; Z79.899 Other long term (current) drug therapy; Z92.21 Personal history of antineoplastic chemotherapy
CPT/HCPCS: 36591; 80053; 85025; 99215

== ENCOUNTER 2021-05-07 10:30 | Outpatient (CLI) | payer MEDICARE, SELFPAY | END 2021-05-07 10:31 | disposition home or self-care (01) | LOC: ONCMED 10:32 | PROVIDERS: PCP Nurse Practitioner; Visit Provider Internal Medicine Medical Oncology | DX: C15.5 Malignant neoplasm of lower third of esophagus (principal); C79.51 Secondary malignant neoplasm of bone; D47.3 Essential (hemorrhagic) thrombocythemia; Z79.899 Other long term (current) drug therapy | CPT/HCPCS: 96372 ==

== ENCOUNTER 2021-05-07 21:23 | Emergency (ER) | payer MEDICARE, SELFPAY ==
[2021-05-07 22:07] VITALS: BP 100/63; PULSE 96; RESP 20; TEMP 36.7; O2SAT 97; BMI 26.6
--- NOTE | 2021-05-07 23:24 | W.ED.ABDPA2 ---
HPI - Abdominal Pain General: Chief Complaint: Abdominal Pain Stated Complaint: No BM Since tube inserted into intestines Time Seen by Provider: 05/07/21 23:24 History of Present Illness: HPI narrative: 55-year-old male comes in with constipation. Patient reports that he is PEG tube replaced on Tuesday of last week and since then has not had a bowel movement. Patient had seen Dr. Caldwell today and was given an injection. Patient appears chronically ill. Patient has a history of esophageal cancer. Patient does have metastasis of the cancer. Patient's medical history includes diabetes, CAD, GERD. Patient does report difficulty with drainage from the gastrostomy tube site. Associated Symptoms: Reports change in bowel habits and constipation Review of Systems General: Reports: 10 or more systems reviewed and unremarkable except in HPI and below GI: Reports: constipation and change in bowel habits PFSH ED PFSH: Medical History Anemia Atypical lymphocytosis Chronic kidney disease COPD (chronic obstructive pulmonary disease) Coronary artery disease Diabetes mellitus Dilutional hyponatremia (~07/2019) Dyslipidemia Esophageal adenocarcinoma Gastro-esophageal reflux disease without esophagitis Generalized anxiety disorder Hypertension Lumbago Myocardial infarct Rheumatoid arthritis Surgical History H/O heart artery stent History of colonoscopy History of endoscopy (04/13/21) 08/14/20 - Esophageal mass Port-A-Cath in place (09/29/20) Status post insertion of percutaneous endoscopic gastrostomy (PEG) tube (11/12/20) Family History Family/Other Cancer Family members in general Diabetes Family members in general Hypothyroid Family members in general Social History Quit status (tobacco): quit date established Second hand smoke exposure: No Smoking risk assessment/counseling performed?: No Alcohol intake: never Desire information about alcohol rehabilitation?: No Counseling given: No Desire information about substance/drug rehabilitation?: No Counseling given: No Caregiver/support person: No Lives independently: Yes Household members: significant other Marital status: Single History of recent travel: No Current gender identity: Male Physical Exam Const: COMMON NORMALS: no acute distress and patient oriented x3 GENERAL APPEARANCE: cooperative HENMT: COMMON NORMALS: normocephalic and Normal external nose present HEAD & SCALP: normal to inspection and normocephalic NOSE: Normal external nose present MOUTH: Normal oral and palatal mucosa present Eye: GENERAL EYE: appearance normal, both eyes and all related structures Lymph: LYMPHATIC: no lymphadenopathy noted Chest: COMMONS NORMALS: normal inspection of the chest Resp: COMMON NORMALS: normal respiratory effort EFFORT & INSPECTION: Yes able to speak in complete sentences Cardio: COMMON NORMALS: regular rate and regular rhythm RATE: regular rate RHYTHM: regular rhythm GI: COMMON NORMALS: Soft to palpation PALPATION: Yes Soft to palpation and Yes Tenderness to palpation present (GI) (Lower abdominal tenderness) : COMMON NORMALS: Yes no CVA tenderness BLADDER/KIDNEY EXAM: Yes no CVA tenderness Back/Pelvis: COMMON NORMALS: no CVA tenderness and thoracic and lumbar spine normal to inspection Extremity: COMMON NORMALS: normal to inspection Neuro: COMMON NORMALS: patient oriented x3 and moves all extremities Psych: COMMON NORMALS: mental status grossly normal and cooperative Skin: COMMON NORMALS: no rashes or lesions noted GENERAL SKIN EXAM: no rashes or lesions noted Course Vital Signs: Vital signs: Vital Signs Temperature 98.1 F 05/07/21 22:07 Pulse Rate 87 05/08/21 00:38 Respiratory Rate 14 05/08/21 00:38 Blood Pressure 114/70 05/08/21 00:38 Pulse Oximetry 98 05/08/21 00:38 MDM - Abdominal Pain MDM Narrative: Medical decision making narrative: 55-year-old male patient came in for concerns of constipation. Patient reports no bowel movement since last Tuesday. Patient had recently had his PEG tube placed and did not know if that had anything to do with it. On exam abdomen soft bowel sounds are active. Skin is warm and dry. Vital signs are normal. Differential diagnosis includes but not limited to bowel obstruction, drug-induced constipation, diverticulitis. Laboratory values were unremarkable. CT of the abdomen and pelvis noted a subacute fracture of the right pubis, PEG tube was satisfactorily in position, new liver metastasis, and prominent lymph nodes due to carcinoma. I reviewed the exam with patient with recommendations for treatment of his constipation, I offered a enema but patient wanted to wait at this time. I reviewed the pubic bone fracture we believe he may have had that back on 10 April when he was seen for a fall. Patient denies any more recent falls. Patient will follow up with primary care and his surgeon for further evaluation and treatment as needed or return to the ER for worsening symptoms. Lab Data: Labs: Lab Results 05/07/21 05/07/21 23:30 23:30 WBC 9.4 10^3/uL 10^3/ uL (4.0-10.0) RBC 3.15 10^6/uL L 10 ^6/uL (4.1-5.3) Hgb 9.9 g/dL L g/dL (11.7-16.6) Hct 31.1 % L % (42.0-52.0) MCV 98.7 fl H fl (80-94) MCH 31.4 pg pg (28.0-34.0) MCHC 31.8 g/dL g/dL (30.0-36.0) RDW 18.0 % H % (12.1-15.1) Plt Count 181 10^3/cmm 10^3 /cmm (130-400) MPV 9.5 fL fL (7.4-10.4) Neut % (Auto) 69.2 % % Lymph % (Auto) 19.4 % % [place] % (Auto) 9.9 % % Eos % (Auto) 0.0 % % Baso % (Auto) 0.4 % % Neut # (Auto) 6.51 10^3/uL 10^3 /uL (1.8-7.7) Lymph # (Auto) 1.8 10^3/uL 10^3/ uL (0.8-4.8) [place] # (Auto) 0.9 10^3/uL 10^3/ uL (0.2-0.9) Eos # (Auto) 0.0 10^3/uL 10^3/ uL (0.0-0.8) Baso # (Auto) 0.0 10^3/uL 10^3/ uL (0.0-0.1) Nucleated RBC % (a uto) 0 % % Nucleated RBCs # 0.0 /100WBC /100W BC Sodium 136 mmol/L mmol/L (136-145) Potassium 3.6 mmol/L mmol/L (3.5-5.1) Chloride 100 mmol/L mmol/L (98-107) Carbon Dioxide 23 mmol/L mmol/L (22-29) Anion Gap 16.6 (5-19) BUN 17 mg/dL mg/dL (6-20) Creatinine 0.6 mg/dL L mg/dL (0.7-1.2) GFR Calculation 138.9 mL/min H mL /min (90-130) Glucose 68 mg/dL mg/dL (65-115) Calculated Osmolal ity 282 mOsm/kg L mOs m/kg (285-295) Calcium 8.1 mg/dL L mg/dL (8.5-10.5) Total Bilirubin 0.3 mg/dL mg/dL (0.15-1.2) AST 23 U/L U/L (0-40) ALT 18 U/L U/L (0-41) Alkaline Phosphata se 150 IU/L H IU/L (40-130) Total Protein 6.6 g/dL g/dL (6.6-8.7) Albumin 3.6 g/dL g/dL (3.5-5.2) Globulin 3.0 g/dL g/dL (1.3-4.6) Discharge Plan Discharge Patient Disposition: Home Clinical Impression: Abdominal pain Qualifiers: Abdominal location: generalized Qualified Code(s): R10.84 - Generalized abdominal pain Constipation Qualifiers: Constipation type: unspecified constipation type Qualified Code(s): K59.00 - Constipation, unspecified Closed pelvic fracture Qualifiers: Encounter type: initial encounter Pelvic bone location: pubis Fracture alignment: nondisplaced Laterality: right Qualified Code(s): S32.501A - Unspecified fracture of right pubis, initial encounter for closed fracture Condition: Stable Prescriptions: No Action oxycodone 15 mg tablet 30 mg PO Q6H PRN (Reason: Pain) RF: 0 clonazepam [Klonopin] 2 mg tablet See Rx Instructions .ROUTE .COMPLEX RF: 0 prednisone 5 mg tablet 5 mg PO DAILY@0830 RF: 0 tizanidine 4 mg capsule 4 mg PO Q12H Qty: 60 RF: 2 sucralfate [Carafate] 1 gram tablet 1 g PO BID 28 Days Qty: 56 RF: 0 nitroglycerin 0.4 mg tablet, sublingual See Rx Instructions .ROUTE .COMPLEX Qty: 25 RF: 0 glipizide 5 mg tablet extended release 24hr See Rx Instructions .ROUTE .COMPLEX Qty: 90 RF: 0 nystatin 100,000 unit/gram cream See Rx Instructions .ROUTE .COMPLEX Qty: 30 RF: 0 magnesium oxide 250 mg magnesium Tablet 250 mg PO BID@829,2029 RF: 0 sertraline [Zoloft] 100 mg tablet 100 mg PO DAILY@829 RF: 0 gabapentin 800 mg tablet 800 mg PO TID@829,1229,2029 RF: 0 folic acid 1 mg tablet 1 mg PO DAILY@829 RF: 0 lovastatin 20 mg tablet 20 mg PO DAILY@829 RF: 0 bupropion HCl 150 mg tablet extended release 24 hr 150 mg PO DAILY@829 RF: 0 ferrous sulfate 324 mg (65 mg iron) tablet,delayed release (DR/EC) 324 mg PO DAILY@829 RF: 0 ondansetron HCl 4 mg tablet 4 mg PO Q8H PRN (Reason: NAUSEA/VOMITING) RF: 0 prochlorperazine maleate 10 mg tablet 10 mg PO Q4H PRN (Reason: NAUSEA/VOMITING) RF: 0 dexamethasone 4 mg tablet See Rx Instructions .ROUTE .COMPLEX RF: 0 Humulin R Regular U-100 Insuln 100 unit/mL solution See Rx Instructions .ROUTE .COMPLEX MDD 44 UNITS RF: 0 lorazepam 1 mg tablet 0.5 - 1 mg PO TID PRN (Reason: Anxiety) RF: 0 pantoprazole 40 mg tablet,delayed release (DR/EC) 40 mg PO DAILY RF: 0 celecoxib [Celebrex] 100 mg capsule 100 mg PO BID Qty: 20 RF: 0 levofloxacin 500 mg tablet 500 mg PO DAILY RF: 0 Discharge Orders: Discharge ED (Routine); Ordered 05/08/21 Ordered By: Anthony Moore Referrals: Stephany Villalpando, PROTOZOOLOGY TEACHER-C [Primary Care Provider] - Discharge Diet: Usual diet Discharge Activity: Increase activity as tolerated Patient Instructions: Constipation (ED), Opioid Safety Activity Restrictions/Additional Instructions: Drink plenty of fluids. Continue with routine medications. Use MiraLAX 17 g, 3 times daily until a good bowel movement. Continue with routine diet as directed. Follow-up with primary care regarding concerns. Follow-up with ophthalmic surgical assistant regarding leakage around the PEG tube site. Return to the emergency department for worsening symptoms, fever greater than 100.4, vomiting or blood in vomit or stool. Coding Level of Care Code ED Scenic Artist for Chg Fwd Exam Comprehensive
--- NOTE | 2021-05-07 23:32 | CTR_ITS ---
PROCEDURE INFORMATION: Exam: CT Abdomen And Pelvis With Contrast Exam date and time: 05/07/2021 11:32 PM Age: 55 years old Clinical indication: Abdominal pain; Generalized; Prior surgery; Surgery type: Peg tube. Coronary stent. ; Patient HX: Abd pain and constipation since placement of peg tube on 05/01/2021. ; Additional info: Abd pain, constipation TECHNIQUE: Imaging protocol: Computed tomography of the abdomen and pelvis with contrast. Radiation optimization: All CT scans at this facility use at least one of these dose optimization techniques: automated exposure control; mA and/or kV adjustment per patient size (includes targeted exams where dose is matched to clinical indication); or iterative reconstruction. Contrast material: OMNI 350; Contrast volume: 95 ml; Contrast route: INTRAVENOUS (IV); COMPARISON: CT chest abd pel w con* 08/14/2020 1:15 PM RADIATION DOSE METRICS: Total DLP (mGy-cm): 1511.04 FINDINGS: Tubes, catheters and devices: Peg tube is appropriately positioned. The bulb is in the gastric lumen. The tip is in the proximal jejunum. There is no apparent leak. There is no sign of inflammation along the abdominal wall tract. Lungs: Noncalcified nodules in the right lower lobe measure up to 7 mm, increased since 08/14/2020. Liver: There are numerous scattered liver nodules which are new since 08/14/2020. There is a confluent mass in the right lobe measuring up to 5.5 x 3.3 cm. Gallbladder and bile ducts: The gallbladder is normal. There is no biliary dilation. Pancreas: The pancreas is unremarkable. Spleen: Splenic size is normal. There are scattered calcifications consistent with healed granulomas. Adrenal glands: The adrenal glands are unremarkable. Kidneys and ureters: The kidneys are unremarkable. No hydronephrosis or stones. No ureteral dilation. Stomach and bowel: The stomach is decompressed. The wall is thin. The small bowel is nondilated. The colon is unremarkable. Appendix: The appendix is not visible. Intraperitoneal space: There is no free air or significant intraperitoneal free fluid. Vasculature: There is moderate aortic atherosclerotic disease. The portal, splenic and superior mesenteric veins are patent. Lymph nodes: There is circumferential thickening of the distal esophagus with adjacent prominent lymph nodes, similar to the findings on 08/14/2020. There is no lymphadenopathy in the retroperitoneum, mesentery, pelvis or inguinal regions. Urinary bladder: The urinary bladder is unremarkable. Reproductive: The prostate and seminal vesicles are unremarkable. Bones/joints: There is moderate degenerative disease in the lumbar spine. There is an acute or subacute nondisplaced fracture of the right superior pubic ramus. The hips are unremarkable. Soft tissues: The abdominal wall is intact. CT/CT abdomen pelvis w con* [id number] IMPRESSION: 1. PEG tube is in satisfactory position. 2. New liver metastases. 3. Acute or subacute nondisplaced right superior pubic fracture. 4. Distal esophageal mass and adjacent prominent lymph nodes consistent with a malignant neoplasm. 5. Increased size of pulmonary metastases. Radiation Dose CTDIVOL = (mGy): DLP = 1511.04 (mGy-cm)
[2021-05-07] MEDS: HYDROmorphone 1 mg/mL INJ 1 mL IVP (23:38)
[2021-05-07] MEDS: ondansetron 2 mg/ML SDV 2 mL 4 MG IVP (23:38)
[2021-05-07 23:40] LABS: Basophils % 0.4 %; Hematocrit 31.1 % (42.0-52.0); Hemoglobin 9.9 g/dL (11.7-16.6); Lymphocytes # 1.8 10^3/uL (0.8-4.8); Lymphocytes % 19.4 %; Mean Corpuscular HGB Conc 31.8 g/dL (30.0-36.0); Mean Corpuscular Hemoglobin 31.4 pg (28.0-34.0); Mean Corpuscular Volume 98.7 fl (80-94); Mean Platelet Volume 9.5 fL (7.4-10.4); Monocytes # 0.9 10^3/uL (0.2-0.9); Monocytes % 9.9 %; Neutrophils # 6.51 10^3/uL (1.8-7.7); Neutrophils % 69.2 %; Nucleated Red Blood Cells % 0 %; Platelet Count 181 10^3/cmm (130-400); Red Blood Count 3.15 10^6/uL (4.1-5.3); White Blood Count 9.4 10^3/uL (4.0-10.0)
[2021-05-07 23:43] VITALS: BP 102/67; PULSE 78; RESP 18; O2SAT 95
[2021-05-08 00:01] LABS: Alanine Aminotransferase 18 U/L (0-41); Albumin Level 3.6 g/dL (3.5-5.2); Alkaline Phosphatase 150 IU/L (40-130); Anion Gap 16.6 (5-19); Aspartate Amino Transferase 23 U/L (0-40); Blood Urea Nitrogen 17 mg/dL (6-20); Calcium 8.1 mg/dL (8.5-10.5); Carbon Dioxide 23 mmol/L (22-29); Chloride 100 mmol/L (98-107); Glomerular Filtration Rate 138.9 mL/min (90-130); Glucose 68 mg/dL (65-115); Osmolality Calculated 282 mOsm/kg (285-295); Potassium 3.6 mmol/L (3.5-5.1); Sodium 136 mmol/L (136-145); Total Bilirubin 0.3 mg/dL (0.15-1.2); Total Protein 6.6 g/dL (6.6-8.7)
[2021-05-08] MEDS: iohexol 350 mg/mL 100 mL Btl IV (00:07)
[2021-05-08 00:38] VITALS: BP 114/70; PULSE 87; RESP 14; O2SAT 98
[2021-05-08 01:24] VITALS: BP 116/74; PULSE 79; RESP 16; TEMP 36.7; O2SAT 97
== END 2021-05-08 01:25 | disposition home or self-care (01) ==
PROVIDERS: Emergency Provider Nurse Practitioner Family; PCP Nurse Practitioner
DX: K59.00 Constipation, unspecified (principal); R10.84 Generalized abdominal pain; S32.501A Unspecified fracture of right pubis, initial encounter for closed fracture; Z79.84 Long term (current) use of oral hypoglycemic drugs; Z79.4 Long term (current) use of insulin; J44.9 Chronic obstructive pulmonary disease, unspecified; I25.10 Atherosclerotic heart disease of native coronary artery without angina pectoris; E78.5 Hyperlipidemia, unspecified; I10 Essential (primary) hypertension; I25.2 Old myocardial infarction; Z85.01 Personal history of malignant neoplasm of esophagus; X58.XXXA Exposure to other specified factors, initial encounter
CPT/HCPCS: 74177; 80053; 85025; 96374; 96375; 99284; J1170; J2405; Q9967

== ENCOUNTER 2021-05-19 06:35 | Outpatient (RCR) | payer MEDICARE, SELFPAY ==
[2021-05-19 09:52] LABS: Basophils % 0.2 %; Hematocrit 29.4 % (42.0-52.0); Hemoglobin 9.1 g/dL (11.7-16.6); Lymphocytes # 0.3 10^3/uL (0.8-4.8); Lymphocytes % 8.4 %; Mean Platelet Volume 9.2 fL (7.4-10.4); Monocytes # 0.2 10^3/uL (0.2-0.9); Monocytes % 5.4 %; Neutrophils # 3.31 10^3/uL (1.8-7.7); Neutrophils % 81.6 %; Nucleated Red Blood Cells % 0 %; Platelet Count 284 10^3/cmm (130-400); Red Blood Count 3.03 10^6/uL (4.1-5.3); Red Cell Distribution Width 18.3 % (12.1-15.1); White Blood Count 4.1 10^3/uL (4.0-10.0)
[2021-05-19 10:24] LABS: Alanine Aminotransferase 21 U/L (0-41); Albumin Level 3.2 g/dL (3.5-5.2); Alkaline Phosphatase 178 IU/L (40-130); Anion Gap 15.9 (5-19); Aspartate Amino Transferase 30 U/L (0-40); Blood Urea Nitrogen 20 mg/dL (6-20); Calcium 7.8 mg/dL (8.5-10.5); Carbon Dioxide 25 mmol/L (22-29); Chloride 98 mmol/L (98-107); Globulin 3.2 g/dL (1.3-4.6); Glomerular Filtration Rate 99.6 mL/min (90-130); Glucose 212 mg/dL (65-115); Osmolality Calculated 287 mOsm/kg (285-295); Potassium 4.9 mmol/L (3.5-5.1); Sodium 134 mmol/L (136-145); Thyroid Stimulating Hormone 1.25 uIU/mL (0.27-4.20); Total Bilirubin 0.3 mg/dL (0.15-1.2); Total Protein 6.4 g/dL (6.6-8.7)
[2021-05-19] MEDS: sodium chloride 0.9% 250 ML 125 ML IV (11:32)
== END 2021-05-20 17:00 | disposition home or self-care (01) ==
LOC: ONCMED 06:35
PROVIDERS: PCP Nurse Practitioner; Visit Provider Internal Medicine Medical Oncology
DX: Z51.12 Encounter for antineoplastic immunotherapy (principal); C15.5 Malignant neoplasm of lower third of esophagus; C79.51 Secondary malignant neoplasm of bone; D47.3 Essential (hemorrhagic) thrombocythemia; D70.1 Agranulocytosis secondary to cancer chemotherapy; T45.1X5A Adverse effect of antineoplastic and immunosuppressive drugs, initial encounter; E03.9 Hypothyroidism, unspecified; Z79.899 Other long term (current) drug therapy
CPT/HCPCS: 80053; 84443; 85025; 96413; J7050; J9271

== ENCOUNTER 2021-05-20 17:39 | Emergency (ER) | payer MEDICARE, SELFPAY ==
[2021-05-20 17:51] VITALS: BP 86/48; PULSE 81; RESP 18; O2SAT 95; BMI 25.1
[2021-05-20 20:00] VITALS: BP 94/62; PULSE 86; RESP 20; O2SAT 97
--- NOTE | 2021-05-20 21:08 | W.ED.GENADLT ---
HPI - General Adult General: Chief complaint: General Medical Stated complaint: feeding tube not working Time Seen by Provider: 05/20/21 19:34 History of Present Illness: HPI narrative: HPI: [55]yo patient w/ hx of G tube dependence from chronic esophageal CA on palliative chemoptheray presenting to the ED with concerns for G tube cathy-stoma leakage of gastric content despite revision of G tube x [address] Banks. No complaints of G tube obstruction/malfunction, insertion site erythema/warmth/pain, or tube dislodgement. No abdominal pain. Denies any change in bowel patterns. Onset: chronic Duration: ongoing Location: home Severity: mild/moderate Review of Systems Narrative: Constitutional: No fever, no chills. HEENT: No vision changes CV: No chest pain, no palpitations PULM: No productive cough, no dyspnea. GI: No abdominal pain, no N/V/D. +Cathy-stoma G tube leakage : No Dysuria MSKEL: No muscle pain SKIN: No new rashes, no lesions. NEURO: No headache, no focal weakness. HEME: No visible bruises PSYCH: Normal mood PFSH ED PFSH: Medical History Anemia Atypical lymphocytosis Chronic kidney disease COPD (chronic obstructive pulmonary disease) Coronary artery disease Diabetes mellitus Dilutional hyponatremia (~07/2019) Dyslipidemia Esophageal adenocarcinoma Gastro-esophageal reflux disease without esophagitis Generalized anxiety disorder Hypertension Lumbago Myocardial infarct Rheumatoid arthritis Surgical History H/O heart artery stent History of colonoscopy History of endoscopy (04/13/21) 08/14/20 - Esophageal mass Port-A-Cath in place (09/29/20) Status post insertion of percutaneous endoscopic gastrostomy (PEG) tube (11/12/20) Family History Family/Other Cancer Family members in general Diabetes Family members in general Hypothyroid Family members in general Social History Quit status (tobacco): quit date established Second hand smoke exposure: No Smoking risk assessment/counseling performed?: No Alcohol intake: never Desire information about alcohol rehabilitation?: No Counseling given: No Desire information about substance/drug rehabilitation?: No Counseling given: No Caregiver/support person: No Lives independently: Yes Household members: significant other Marital status: Single History of recent travel: No Current gender identity: Male Physical Exam Narrative: EXAM NARRATIVE: Head: Atraumatic Eyes: PERRL, conjunctiva without injection, eyes tracking ENT: Mucous membrane moist NECK: Supple without lymphadenopathy LUNGS: LCTAB CV: RRR ABDOMEN: Soft, nontender in all quadrants, no guarding or rebound tenderness. Gastric tube appropriately placed. Small per-stoma gastric G tube leakage noted episodically. G tube insertion site appears to be dry/clean/intact without any signs of fluctuance, no cathy-G tube leakage EXTREMITY: Normal ROM SKIN: No rash or erythema NEURO: Awake and alert. No focal weakness PSYCH: Cooperative mood and affect Course Vital Signs: Vital signs: Vital Signs Pulse Rate 84 05/20/21 22:50 Respiratory Rate 18 05/20/21 22:50 Blood Pressure 94/62 05/20/21 22:50 Pulse Oximetry 97 05/20/21 22:50 MDM - General Adult MDM Narrative: Medical decision making narrative: [55]yo patient w/ G tube dependence presenting to the ED with concerns for cathy-stoma G-Tube leakage without evidence of infection, G tube malfunction/obstruction, or displacement/dislodgement. Intervention: Attempt to deflate and inflate the G tube balloon. [9:15pm] On reassessment, the G tube is now flushing and gastric contents are aspirated back through the G tube easily. The G tube appears to be secure and tagged down to the stoma entry. However there continues to be leakage around the peg tube. Family requests for another surgeon. I have discussed case with Dr. Elie Keys who agrees with close outpatient followup at this time. I have given patient follow up with our disease case manager to be seen dr. eKys for PEG tube revision. Patient aware of a call from our disease case manager to schedule for appointment(s) and verbalizes understanding of the importance of following up. Disposition: Discharge. Feeding tube now patent. Patient without any other emergent medical complaints, well appearing. Recommendations prompt PCP and GI follow up within 48 hours. SRP discussed. Lab Data: Labs: Lab Results 05/20/21 05/20/21 05/20/21 21:05 21:05 21:05 WBC 7.5 10^3/uL 10^3/ uL (4.0-10.0) RBC 3.16 10^6/uL L 10 ^6/uL (4.1-5.3) Hgb 9.7 g/dL L g/dL (11.7-16.6) Hct 30.4 % L % (42.0-52.0) MCV 96.2 fl H fl (80-94) MCH 30.7 pg pg (28.0-34.0) MCHC 31.9 g/dL g/dL (30.0-36.0) RDW 18.4 % H % (12.1-15.1) Plt Count 302 10^3/cmm 10^3 /cmm (130-400) MPV 9.7 fL fL (7.4-10.4) Neut % (Auto) 58.8 % % Lymph % (Auto) 18.6 % % [place] % (Auto) 17.7 % % Eos % (Auto) 0.1 % % Baso % (Auto) 0.3 % % Neut # (Auto) 4.41 10^3/uL 10^3 /uL (1.8-7.7) Lymph # (Auto) 1.4 10^3/uL 10^3/ uL (0.8-4.8) [place] # (Auto) 1.3 10^3/uL H 10^ 3/uL (0.2-0.9) Eos # (Auto) 0.0 10^3/uL 10^3/ uL (0.0-0.8) Baso # (Auto) 0.0 10^3/uL 10^3/ uL (0.0-0.1) Nucleated RBC % (a uto) 0 % % Nucleated RBCs # 0.0 /100WBC /100W BC PT 14.90 SECONDS SEC ONDS (12.1-14.9) INR 1.14 (0.8-1.2) APTT 25.8 SECONDS SECO NDS (23.9-36.7) Sodium 136 mmol/L mmol/L (136-145) Potassium 3.8 mmol/L mmol/L (3.5-5.1) Chloride 99 mmol/L mmol/L (98-107) Carbon Dioxide 24 mmol/L mmol/L (22-29) Anion Gap 16.8 (5-19) BUN 21 mg/dL H mg/dL (6-20) Creatinine 0.9 mg/dL mg/dL (0.7-1.2) GFR Calculation 87.0 mL/min L mL/ min (90-130) Glucose 70 mg/dL mg/dL (65-115) Calculated Osmolal ity 283 mOsm/kg L mOs m/kg (285-295) Calcium 7.7 mg/dL L mg/dL (8.5-10.5) Total Bilirubin 0.2 mg/dL mg/dL (0.15-1.2) AST 30 U/L U/L (0-40) ALT 22 U/L U/L (0-41) Alkaline Phosphata se 161 IU/L H IU/L (40-130) Total Protein 6.7 g/dL g/dL (6.6-8.7) Albumin 3.2 g/dL L g/dL (3.5-5.2) Globulin 3.5 g/dL g/dL (1.3-4.6) Urine Color Urine Appearance Urine pH Ur Specific Gravit y Urine Protein Urine Glucose (UA) Urine Ketones Urine Blood Urine Nitrate Urine Bilirubin Urine Urobilinogen Ur Leukocyte Cydney ase 05/20/21 21:15 WBC RBC Hgb Hct MCV MCH MCHC RDW Plt Count MPV Neut % (Auto) Lymph % (Auto) [place] % (Auto) Eos % (Auto) Baso % (Auto) Neut # (Auto) Lymph # (Auto) [place] # (Auto) Eos # (Auto) Baso # (Auto) Nucleated RBC % (a uto) Nucleated RBCs # PT INR APTT Sodium Potassium Chloride Carbon Dioxide Anion Gap BUN Creatinine GFR Calculation Glucose Calculated Osmolal ity Calcium Total Bilirubin AST ALT Alkaline Phosphata se Total Protein Albumin Globulin Urine Color Dark yellow (Yellow) Urine Appearance Clear (CLEAR) Urine pH 6.5 (5-7) Ur Specific Gravit y 1.010 (1.005-1.030) Urine Protein Neg (Negative) Urine Glucose (UA) Norm (Normal) Urine Ketones Negative (Negative) Urine Blood Neg (Negative) Urine Nitrate Negative (Negative) Urine Bilirubin Neg (Negative) Urine Urobilinogen 1 mg/dL H mg/dL (Negative) Ur Leukocyte Cydney ase Negative (Negative) Discharge Plan Discharge Patient Disposition: Home Clinical Impression: PEG tube malfunction Condition: Stable Prescriptions: No Action oxycodone 15 mg tablet 30 mg PO Q6H PRN (Reason: Pain) RF: 0 clonazepam [Klonopin] 2 mg tablet See Rx Instructions .ROUTE .COMPLEX RF: 0 (DME) Wheelchair See Rx Instructions .Route .MEDSUPPLY Qty: 1 RF: 0 bupropion HCl 150 mg tablet extended release 24 hr 150 mg PO DAILY Qty: 30 RF: 5 glipizide 5 mg tablet extended release 24hr 5 mg PO DAILY Qty: 90 RF: 1 lovastatin 20 mg tablet 20 mg PO DAILY@0830 Qty: 90 RF: 1 sertraline [Zoloft] 100 mg tablet 100 mg PO DAILY Qty: 90 RF: 1 tizanidine 4 mg capsule 4 mg PO Q12H Qty: 60 RF: 2 prednisone 5 mg tablet 5 mg PO DAILY@0830 RF: 0 sucralfate [Carafate] 1 gram tablet 1 g PO BID 28 Days Qty: 56 RF: 0 nitroglycerin 0.4 mg tablet, sublingual See Rx Instructions .ROUTE .COMPLEX Qty: 25 RF: 0 nystatin 100,000 unit/gram cream See Rx Instructions .ROUTE .COMPLEX Qty: 30 RF: 0 magnesium oxide 250 mg magnesium Tablet 250 mg PO BID@829,2029 RF: 0 gabapentin 800 mg tablet 800 mg PO TID@0830,0,2029 RF: 0 folic acid 1 mg tablet 1 mg PO DAILY@0830 RF: 0 ferrous sulfate 324 mg (65 mg iron) tablet,delayed release (DR/EC) 324 mg PO DAILY@0830 RF: 0 ondansetron HCl 4 mg tablet 4 mg PO Q8H PRN (Reason: NAUSEA/VOMITING) RF: 0 prochlorperazine maleate 10 mg tablet 10 mg PO Q4H PRN (Reason: NAUSEA/VOMITING) RF: 0 dexamethasone 4 mg tablet See Rx Instructions .ROUTE .COMPLEX RF: 0 Humulin R Regular U-100 Insuln 100 unit/mL solution See Rx Instructions .ROUTE .COMPLEX MDD 44 UNITS RF: 0 lorazepam 1 mg tablet 0.5 - 1 mg PO TID PRN (Reason: Anxiety) RF: 0 pantoprazole 40 mg tablet,delayed release (DR/EC) 40 mg PO DAILY RF: 0 celecoxib [Celebrex] 100 mg capsule 100 mg PO BID Qty: 20 RF: 0 Discharge Orders: Discharge ED (Routine); Ordered 05/20/21 Ordered By: Elvira Rivera Referrals: Stephany Villalpando, COMPUTER FORWARDING SYSTEM MARKUP CLERK-C [Primary Care Provider] - Discharge Diet: Advance as tolerated Discharge Activity: Resume usual activity Patient Instructions: How to Use and Care for Your PEG Tube (ED) Activity Restrictions/Additional Instructions: Our disease case manager will have you follow-up with Dr. Keys in the next few days. You would be expected to have a phone call with our disease case manager who will put you on the schedule. Come back if you have any new or concerning issues. Coding Level of Care Code ED Brick Loader for Libra Cook
[2021-05-20 21:36] LABS: Add Urine Microscopic? NO; Charge for UA Resulting for Rev
[2021-05-20 21:39] LABS: Basophils % 0.3 %; Eosinophils % 0.1 %; Hematocrit 30.4 % (42.0-52.0); Hemoglobin 9.7 g/dL (11.7-16.6); Lymphocytes # 1.4 10^3/uL (0.8-4.8); Lymphocytes % 18.6 %; Mean Corpuscular HGB Conc 31.9 g/dL (30.0-36.0); Mean Corpuscular Hemoglobin 30.7 pg (28.0-34.0); Mean Corpuscular Volume 96.2 fl (80-94); Mean Platelet Volume 9.7 fL (7.4-10.4); Monocytes # 1.3 10^3/uL (0.2-0.9); Monocytes % 17.7 %; Neutrophils # 4.41 10^3/uL (1.8-7.7); Neutrophils % 58.8 %; Nucleated Red Blood Cells % 0 %; Platelet Count 302 10^3/cmm (130-400); Red Blood Count 3.16 10^6/uL (4.1-5.3); Red Cell Distribution Width 18.4 % (12.1-15.1); White Blood Count 7.5 10^3/uL (4.0-10.0)
[2021-05-20 21:50] LABS: Bilirubin Urine Neg (Negative); Blood Urine Neg (Negative); Glucose Urine UA Norm (Normal); Ketones Urine Negative (Negative); Leukocyte Esterase Urine Negative (Negative); Nitrate Urine Negative (Negative); Protein Urine Neg (Negative); Urine Appearance Clear (CLEAR); Urine Color Dark Yellow (Yellow); Urobilinogen Urine 1 mg/dL (Negative); pH Urine 6.5 (5-7)
[2021-05-20 21:55] VITALS: RESP 18; O2SAT 99
[2021-05-20] MEDS: morphine 4 mg/mL SDV 1 mL 2 MG IVP (21:55)
[2021-05-20 22:04] LABS: INR 1.14 (0.8-1.2)
[2021-05-20 22:05] LABS: Partial Thromboplastin Time 25.8 SECONDS (23.9-36.7)
[2021-05-20 22:10] LABS: Alanine Aminotransferase 22 U/L (0-41); Albumin Level 3.2 g/dL (3.5-5.2); Alkaline Phosphatase 161 IU/L (40-130); Anion Gap 16.8 (5-19); Aspartate Amino Transferase 30 U/L (0-40); Blood Urea Nitrogen 21 mg/dL (6-20); Calcium 7.7 mg/dL (8.5-10.5); Carbon Dioxide 24 mmol/L (22-29); Chloride 99 mmol/L (98-107); Globulin 3.5 g/dL (1.3-4.6); Glucose 70 mg/dL (65-115); Osmolality Calculated 283 mOsm/kg (285-295); Potassium 3.8 mmol/L (3.5-5.1); Sodium 136 mmol/L (136-145); Total Bilirubin 0.2 mg/dL (0.15-1.2); Total Protein 6.7 g/dL (6.6-8.7)
[2021-05-20 22:50] VITALS: BP 94/62; PULSE 84; RESP 18; O2SAT 97
--- NOTE | 2021-05-21 11:19 | DCPLANNER ---
manager biologics had message to schedule a follow up appointment with Dr. Keys, physician television station manager. Patient is a patient of Dr. Banks, web production manager emailed patients information to both Mary and Pamela, at [facility] General Surgery / ENT clinic. Patients information will be printed and reviewed. Clinic will call patient with appointment information.
--- NOTE | 2021-06-03 08:05 | DCPLANNER ---
Patient had a follow up appointment scheduled with general surgery - patient did attend appointment.
== END 2021-05-20 22:15 | disposition home or self-care (01) ==
PROVIDERS: Emergency Provider Emergency Medicine; PCP Nurse Practitioner
DX: K94.23 Gastrostomy malfunction (principal); Z79.84 Long term (current) use of oral hypoglycemic drugs; Z79.4 Long term (current) use of insulin; J44.9 Chronic obstructive pulmonary disease, unspecified; I25.10 Atherosclerotic heart disease of native coronary artery without angina pectoris; E11.9 Type 2 diabetes mellitus without complications; E78.5 Hyperlipidemia, unspecified; I10 Essential (primary) hypertension; I25.2 Old myocardial infarction
CPT/HCPCS: 80053; 81003; 85025; 85610; 85730; 96374; 99283; J2270

== ENCOUNTER 2021-05-26 06:24 | Outpatient (RCR) | payer MEDICARE, SELFPAY ==
[2021-05-21] MEDS: morphine 4 mg/mL SDV 1 mL SUBCUT ×2 (12:34→13:27)
[2021-05-21] MEDS: sodium chloride 0.9% 500 ML 999 ML IV (12:36)
[2021-05-21] MEDS: ondansetron 2 mg/ML SDV 2 mL 8 MG IVP (12:39)
--- NOTE | 2021-05-25 07:19 | ONC FU_ITS ---
Dr. Caldwell Patient Follow-Up Note Patient: Maximino Sandoval Unit #: [id number]: [id number] Dicatated By: Enzo Caldwell M.D.Date of Visit:May 21, 2021 Onc Med Follow-up/Prog Note Chief Complaint: Esophageal cancer. 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 He has a history of T-cell large granular leukemia, diagnosed in April 2019, and rheumatoid arthritis, diagnosed in 2003. He had been on treatment with methotrexate and prednisone since April 2020. He then presented earlier this year with anemia and difficulty swallowing. His EGD on 08/14/2020 showed esophageal thickening with friable mucosa, biopsy of which showed moderate to poorly differentiated invasive adenocarcinoma. The tumor was found to be HER-2/stephanie negative and MSI I stable. Next generation sequencing was positive for an alteration of the CESARIO gene. It also showed high mutational burden at 14.35. Staging PET/CT on 09/11/2020 showed multiple sites of lymph node involvement, multiple hepatic metastases, and multiple sites of metastatic bone involvement. He initially underwent palliative radiation to the C5 vertebral body. He completed treatment on 11/17/2020 to a total dose of 3000 cGy administered in 10 fractions. He underwent placement of Port-A-Cath for venous access and he required placement of PEG tube for nutritional support. On 12/04/2020 he began cycle 1 of systemic chemotherapy with carboplatin/paclitaxel. He developed chemotherapy-induced neutropenia, but with growth factor support he was able to continue treatment at 3-week intervals on a day 1/day 8 schedule. His repeat PET/CT on 01/31/2021 showed FDG positive distal esophageal mass, malignant mediastinal and upper abdominal lymphadenopathy, hepatic metastatic disease, and multifocal osseous metastatic disease. Also noted was inflammatory activity at the gastrostomy site. There is no comparison to the prior PET/CT. He continued his same chemotherapy. He began his 7th cycle of treatment on 04/02/2021. I had seen him at day 8 of his 7th cycle of treatment. At that point he was having significant issues with leakage around his PEG tube site. His repeat EGD on 04/13/2021 had shown residual mass in the esophagus at 36 to 40 cm, but it was able to be easily passed with the gastroscope. With his PET/CT and endoscopy showing persistent disease and with his tumor showing high mutational burden, he was given the option to begin a trial of immunotherapy with pembrolizumab. He then returned on 05/19/2021 for cycle 1 of pembrolizumab at 200 mg by IV infusion. He is seen today for an unplanned visit. He developed generalized joint and muscle pain following the pembrolizumab infusion, severe enough that he was seen in the emergency room last night. He continues to have severe pain today, I have not think that there is any question but that it is a side effect of the pembrolizumab. Medications: Aspirin 1 (81 mg) Tablet Oral daily, buPROPion HCl ER (SR) 1 (150 mg) Tablet SR 12 HR Oral daily, clonazePAM 1 (2 mg) Tablet Oral daily, [facility] Senna Plus 2 Tablet (of 8.6-50 mg) Oral daily, Cymbalta 1 Capsule (of 100 mg) Capsule Delayed Release Particles Oral daily, Ferrous Gluconate 1 (324 (37.5 fe) mg) Tablet Oral b.i.d., Ferrous Sulfate 1 (325 (65 fe) mg) Tablet Oral daily, Fish Oil 1 (1200 mg) Capsule Oral daily, Folic Acid 1 (1 mg) Tablet Oral daily, Gabapentin 1 (800 mg) Tablet Oral t.i.d., glipiZIDE ER 1 (5 mg) Tablet SR 24 HR Oral daily, Hydroxychloroquine Sulfate 2 Tablet (of 200 mg) Oral daily, Irbesartan 1 (75 mg) Tablet Oral daily, Lovastatin 1 (20 mg) Tablet Oral daily, Magnesium Oxide -Mg Supplement 1 (250 mg) Tablet Oral b.i.d., Nitroglycerin 1 (0.4 mg) Tablet, sublingual Sublingual PRN, OxyCODONE HCl 1 - 2 (30 mg) Tablet Oral q 4 hours PRN, Pantoprazole Sodium 1 (40 mg) Tablet, enteric coated Oral daily, PARoxetine HCl 1 (20 mg) Tablet Oral b.i.d., Sildenafil Citrate 1 (25 mg) Tablet Oral PRN, tiZANidine HCl 1 Capsule (of 4 mg) Tablet Oral q 12 hours PRN Allergies: Lisinopril Lab/Imaging: Test performed on May 19, 2021 09:32 Sodium 134 mmol/L TSH 1.25 uIU/mL Potassium 4.9 mmol/L Chloride 98 mmol/L CO2 25 mmol/L Anion Gap 15.9 BUN 20 mg/dL Creatinine 0.8 mg/dL Cr Clearance (Est) 118.5700 mL/min eGFR 99.6 mL/min Glucose 212 mg/dL Osmolality - Calculated 287 mOsm/kg Calcium 7.8 mg/dL Protein, Total 6.4 g/dL Albumin 3.2 g/dL Globulin 3.2 g/dL Bilirubin, Total 0.3 mg/dL ALT (SGPT) 21 U/L AST (SGOT) 30 U/L Alkaline Phosphatase 178 IU/L WBC 4.1 10 3/uL RBC 3.03 10 6/uL HGB 9.1 g/dL HCT 29.4 % MCV 97.0 fl MCH 30.0 pg MCHC 31.0 g/dL RDW 18.3 % Platelet Count 284 10 3/cmm MPV 9.2 fL Neutrophils 3.31 10 3/uL Lymphocytes 0.3 10 3/uL Monocytes 0.2 10 3/uL Eosinophils 0.0 10 3/uL Basophils 0.0 10 3/uL Neutrophil % 81.6 % Lymphocyte % 8.4 % Monocyte % 5.4 % Eosinophil % 0.0 % Basophils % 0.2 % NRBC % 0 % Problem List: 1. Moderate to poorly differentiated invasive adenocarcinoma of the esophagus, stage IV, with PET/CT evidence of metastatic involvement in lymph nodes, liver, and bone. His tumor was found to be HER-2 negative and MSI stable. Next generation sequencing showed high mutational burden at 14.35 and it also showed alteration in the CESARIO gene. 2. T-cell large granular leukemia. 3. Rheumatoid arthritis. 4. Hypertension. 5. Hyperlipidemia. 6. Type 2 diabetes. 7. Coronary artery disease. 8. Degenerative arthritis. Problems Addressed with this Encounter and Plan: Patient with moderate to poorly differentiated invasive adenocarcinoma of the esophagus, stage IV, with PET/CT evidence of metastatic involvement in lymph nodes, liver, and bone. His tumor was found to be HER-2 negative and MSI stable. Next generation sequencing showed high mutational burden at 14.35 and it also showed alteration in the CESARIO gene. He has been undergoing systemic chemotherapy with carboplatin/paclitaxel. He is now at day 8 of his 7th cycle of treatment. It is unclear to what extent he has responded to the treatment. There was continued metastatic involvement noted on his restaging PET/CT as well as persistent uptake at the site of the primary tumor. However, it did appear that there would be a low likelihood of further benefit with continuation of his chemotherapy regimen. As such, with his tumor showing high mutational burden, he was given the option to begin a trial of immunotherapy, though he was advised of potential side effects with it, most significantly that it could cause an exacerbation his rheumatoid arthritis. On 05/19/2021 he began cycle 1 of pembrolizumab at 200 mg by IV infusion. He unfortunately has developed fairly generalized joint pain following that infusion. The pain is severe enough that he it is being administered morphine subcutaneously in the office today. He also will be given 60 mg of Solu-Medrol IV, and he will start prednisone, initially at 20 mg twice daily. Signed By: Enzo Caldwell M.D. <<Signature on File>>
--- NOTE | 2021-05-26 10:31 | ONC FU_ITS ---
Dr. 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 He has a history of T-cell large granular leukemia, diagnosed in April 2019, and rheumatoid arthritis, diagnosed in 2003. He had been on treatment with methotrexate and prednisone since April 2020. He then presented earlier this year with anemia and difficulty swallowing. His EGD on 08/14/2020 showed esophageal thickening with friable mucosa, biopsy of which showed moderate to poorly differentiated invasive adenocarcinoma. The tumor was found to be HER-2/stephanie negative and MSI I stable. Next generation sequencing was positive for an alteration of the CESARIO gene. It also showed high mutational burden at 14.35. Staging PET/CT on 09/11/2020 showed multiple sites of lymph node involvement, multiple hepatic metastases, and multiple sites of metastatic bone involvement. He initially underwent palliative radiation to the C5 vertebral body. He completed treatment on 11/17/2020 to a total dose of 3000 cGy administered in 10 fractions. He underwent placement of Port-A-Cath for venous access and he required placement of PEG tube for nutritional support. On 12/04/2020 he began cycle 1 of systemic chemotherapy with carboplatin/paclitaxel. He developed chemotherapy-induced neutropenia, but with growth factor support he was able to continue treatment at 3-week intervals on a day 1/day 8 schedule. His repeat PET/CT on 01/31/2021 showed FDG positive distal esophageal mass, malignant mediastinal and upper abdominal lymphadenopathy, hepatic metastatic disease, and multifocal osseous metastatic disease. Also noted was inflammatory activity at the gastrostomy site. There is no comparison to the prior PET/CT. He continued his same chemotherapy. He began his 7th cycle of treatment on 04/02/2021. I had seen him at day 8 of his 7th cycle of treatment. At that point he was having significant issues with leakage around his PEG tube site. His repeat EGD on 04/13/2021 had shown residual mass in the esophagus at 36 to 40 cm, but it was able to be easily passed with the gastroscope. With his PET/CT and endoscopy showing persistent disease and with his tumor showing high mutational burden, he was given the option to begin a trial of immunotherapy with pembrolizumab. He then returned on 05/19/2021 for cycle 1 of pembrolizumab at 200 mg by IV infusion. He developed generalized joint and muscle pain following the pembrolizumab infusion, severe enough that he was seen in the emergency room, Immunotherapy was discontinued and patient treated with hydrocortisone followed by prednisone tapering dose Came for follow-up, complaining of generalized weakness and fatigue, also complaining of pain in the bilateral knees hips and lower neck, he is on tapering dose of prednisone and joint pain is improving. Denies any skin rash, denies any nausea or vomiting but occasionally dysphagia no hematemesis or hemoptysis. No melena or hematochezia, no fever chills. Medications: Aspirin 1 (81 mg) Tablet Oral daily, buPROPion HCl ER (SR) 1 (150 mg) Tablet SR 12 HR Oral daily, clonazePAM 1 (2 mg) Tablet Oral daily, [facility] Senna Plus 2 Tablet (of 8.6-50 mg) Oral daily, Cymbalta 1 Capsule (of 100 mg) Capsule Delayed Release Particles Oral daily, Ferrous Gluconate 1 (324 (37.5 fe) mg) Tablet Oral b.i.d., Ferrous Sulfate 1 (325 (65 fe) mg) Tablet Oral daily, Fish Oil 1 (1200 mg) Capsule Oral daily, Folic Acid 1 (1 mg) Tablet Oral daily, Gabapentin 1 (800 mg) Tablet Oral t.i.d., glipiZIDE ER 1 (5 mg) Tablet SR 24 HR Oral daily, Hydroxychloroquine Sulfate 2 Tablet (of 200 mg) Oral daily, Irbesartan 1 (75 mg) Tablet Oral daily, Lovastatin 1 (20 mg) Tablet Oral daily, Magnesium Oxide -Mg Supplement 1 (250 mg) Tablet Oral b.i.d., Nitroglycerin 1 (0.4 mg) Tablet, sublingual Sublingual PRN, OxyCODONE HCl 1 - 2 (30 mg) Tablet Oral q 4 hours PRN, Pantoprazole Sodium 1 (40 mg) Tablet, enteric coated Oral daily, PARoxetine HCl 1 (20 mg) Tablet Oral b.i.d., predniSONE 1 Tablet (of 20 mg) Oral daily, Sildenafil Citrate 1 (25 mg) Tablet Oral PRN, tiZANidine HCl 1 Capsule (of 4 mg) Tablet Oral q 12 hours PRN Allergies: Lisinopril Review of Systems: Review of Systems is not available for this patient. Vital Signs: Performed on May 26, 2021 09:53 Height - 72.00 in Weight - 170.6 lbs (LOW) BSA - 1.99 sq.m BMI - 23.14 Temperature - 98.9 F (HIGH) Pulse - 76 /min Respiration - 18 /min BP - 101/64 mm(hg) O2 Sat - 97 % Pain - 4 Fatigue - 7 Performance Status: 2 - Ambulatory/capable of all self-care, unable to perform any work activities. Up and about more than 50% of waking hours. (ECOG) Physical Examination: ENMT - No mouth sores, no thrush, no jaundice, Respiratory - Poor air entry otherwise clear, Cardiovascular - Regular rate and rhythm of heart, Abdomen - Soft, bowel sounds present, Extremities - No visible edema. Lab/Imaging: Test performed on May 19, 2021 09:32 Sodium 134 mmol/L TSH 1.25 uIU/mL Potassium 4.9 mmol/L Chloride 98 mmol/L CO2 25 mmol/L Anion Gap 15.9 BUN 20 mg/dL Creatinine 0.8 mg/dL Cr Clearance (Est) 118.5700 mL/min eGFR 99.6 mL/min Glucose 212 mg/dL Osmolality - Calculated 287 mOsm/kg Calcium 7.8 mg/dL Protein, Total 6.4 g/dL Albumin 3.2 g/dL Globulin 3.2 g/dL Bilirubin, Total 0.3 mg/dL ALT (SGPT) 21 U/L AST (SGOT) 30 U/L Alkaline Phosphatase 178 IU/L WBC 4.1 10 3/uL RBC 3.03 10 6/uL HGB 9.1 g/dL HCT 29.4 % MCV 97.0 fl MCH 30.0 pg MCHC 31.0 g/dL RDW 18.3 % Platelet Count 284 10 3/cmm MPV 9.2 fL Neutrophils 3.31 10 3/uL Lymphocytes 0.3 10 3/uL Monocytes 0.2 10 3/uL Eosinophils 0.0 10 3/uL Basophils 0.0 10 3/uL Neutrophil % 81.6 % Lymphocyte % 8.4 % Monocyte % 5.4 % Eosinophil % 0.0 % Basophils % 0.2 % NRBC % 0 % Test performed on Apr 30, 2021 09:41 CBC Slide Review Slide Review Perform SLIDE REVIEWED AGREES WITH THE AUTO RESULT Test performed on Mar 11, 2021 13:04 Ferritin 551 ng/mL Iron 21 mcg/dL Vitamin B12 1032 pg/mL Iron Binding Capacity (TIBC) 210 mcg/dl % Iron Saturation 10.0 % UIBC 189 mcg/dL Test performed on Mar 05, 2021 09:00 Manual Segs % 69 % Manual Bands % 15.0 % Manual Lymphs % 10 % Atypical Lymphs % 1.0 % Total Cells Counted 100 Manual Monos % 3.0 % Manual Eos % 0 % Manual Basos % 0.0 % Metamyelocytes % 1.0 % Myelocytes % 1.0 % Anisocytosis 2+ Poikilocytosis 2+ Platelet Estimate Normal Manual Segs Abs 3.0 10/cmm Manual Bands Abs 0.6 10 3/cmm Manual Neutrophils Abs 3.6 10 3/cmm Manual Lymphocytes Abs 0.5 10 3/cmm Manual Monocytes Abs 0.1 10 3/cmm Manual Eosinophils Abs 0.0 10 3/cmm Manual Basophils Abs 0.0 10 3/cmm Test performed on Feb 11, 2021 13:34 Macrocytosis 1+ Ovalocytes Trace Schistocytes Trace Impression: 1. Moderate to poorly differentiated invasive adenocarcinoma of the esophagus, stage IV, with PET/CT evidence of metastatic involvement in lymph nodes, liver, and bone. His tumor was found to be HER-2 negative and MSI stable. Next generation sequencing showed high mutational burden at 14.35 and it also showed alteration in the CESARIO gene. 2. T-cell large granular leukemia. 3. Rheumatoid arthritis. 4. Hypertension. 5. Hyperlipidemia. 6. Type 2 diabetes. 7. Coronary artery disease. 8. Degenerative arthritis. Plan: Discussed with patient and his regarding his disease status and further treatment options as patient could not tolerate immunotherapy because of flaring up of rheumatoid arthritis, now immunotherapy has been discontinued and on tapering dose of prednisone. At this point, as his follow-up PET scan done in April 2021 showed there was continue improvement in his metastatic disease, we will consider resuming same regimen with weekly carboplatin and Taxol till follow-up PET scan which will be scheduled in July 2021. Patient was advised to continue with his tapering dose of prednisone he is on 10 mg p.o. twice daily till Tuesday and on Tuesday night he will take Taxol premedication with dexamethasone and then return to clinic on Tuesday morning with CBC CMP and for weekly carboplatin/Taxol. Signed By: Asaf Ramachandran M.D. <<Signature on File>>
== END 2021-05-30 17:00 | disposition home or self-care (01) ==
LOC: ONCMED 06:24
PROVIDERS: PCP Nurse Practitioner; Visit Provider Internal Medicine Medical Oncology
DX: C15.8 Malignant neoplasm of overlapping sites of esophagus (principal); C77.8 Secondary and unspecified malignant neoplasm of lymph nodes of multiple regions; C78.7 Secondary malignant neoplasm of liver and intrahepatic bile duct; C79.51 Secondary malignant neoplasm of bone; C91.Z0 Other lymphoid leukemia not having achieved remission; M06.9 Rheumatoid arthritis, unspecified; I10 Essential (primary) hypertension; E78.5 Hyperlipidemia, unspecified; E11.59 Type 2 diabetes mellitus with other circulatory complications; I25.10 Atherosclerotic heart disease of native coronary artery without angina pectoris; M19.90 Unspecified osteoarthritis, unspecified site; Z79.52 Long term (current) use of systemic steroids; Z79.899 Other long term (current) drug therapy; Z92.21 Personal history of antineoplastic chemotherapy
CPT/HCPCS: 96361; 96372; 96374; 96375; 99214; 99215; J2270; J2405; J2930; J7040

== ENCOUNTER 2021-05-30 19:47 | Emergency (ER) | payer MEDICARE, SELFPAY ==
[2021-05-30 19:53] VITALS: BP 91/66; PULSE 71; RESP 16; TEMP 36.8; O2SAT 98; BMI 25.7
[2021-05-30] MEDS: silver sulfadiazine cream 1% 50 gm 1 APPLIC TOPICAL (21:21)
[2021-05-30 21:33] VITALS: BP 94/68; PULSE 66; RESP 14; O2SAT 98
--- NOTE | 2021-05-30 21:34 | W.ED.SKABFB ---
HPI - Skin/Abscess/Foreign Bdy General: Chief complaint: Abdominal Pain Stated complaint: Blister on feeding tube Time Seen by Provider: 05/30/21 20:58 History of Present Illness: HPI narrative: Patient has skin irritation from her leakage of G-tube. This is been a chronic problem. MD complaint: rash Onset (ago): month(s) Associated symptoms: Deny chills or fever(s) Review of Systems Const: Denies: fever(s) or chills GI: Denies: abdominal pain Skin/Breast: Reports: rash, erythema and skin tenderness (bile leaking from underneath G-tube irritating the skin); Denies: pruritus or skin swelling Psych: Reports: anxiety and depression PFSH ED PFSH: Medical History Anemia Atypical lymphocytosis Chronic kidney disease COPD (chronic obstructive pulmonary disease) Coronary artery disease Diabetes mellitus Dilutional hyponatremia (~07/2019) Dyslipidemia Esophageal adenocarcinoma Gastro-esophageal reflux disease without esophagitis Generalized anxiety disorder Hypertension Lumbago Myocardial infarct Rheumatoid arthritis Surgical History H/O heart artery stent History of colonoscopy History of endoscopy (04/13/21) 08/14/20 - Esophageal mass Port-A-Cath in place (09/29/20) Status post insertion of percutaneous endoscopic gastrostomy (PEG) tube (11/12/20) Family History Family/Other Cancer Family members in general Diabetes Family members in general Hypothyroid Family members in general Social History Quit status (tobacco): quit date established Second hand smoke exposure: No Smoking risk assessment/counseling performed?: No Alcohol intake: never Desire information about alcohol rehabilitation?: No Counseling given: No Desire information about substance/drug rehabilitation?: No Counseling given: No Caregiver/support person: No Lives independently: Yes Household members: significant other Marital status: Single History of recent travel: No Current gender identity: Male Physical Exam Const: COMMON NORMALS: no acute distress GENERAL APPEARANCE: cooperative Psych: COMMON NORMALS: mental status grossly normal Skin: OTHER: Macular skin redness south of the G-tube insertion site. Tender to the touch. No signs of infection. Course Vital Signs: Vital signs: Vital Signs Temperature 98.3 F 05/30/21 19:53 Pulse Rate 71 05/30/21 19:53 Respiratory Rate 16 05/30/21 19:53 Blood Pressure 91/66 05/30/21 19:53 Pulse Oximetry 98 05/30/21 19:53 Discharge Plan Discharge Patient Disposition: Home Clinical Impression: Leaking PEG tube Condition: Stable Prescriptions: New Silvadene 1 % cream 1 applic topical BID PRN (Reason: wound healing) Qty: 50 RF: 0 No Action oxycodone 15 mg tablet 30 mg PO Q6H PRN (Reason: Pain) RF: 0 clonazepam [Klonopin] 2 mg tablet See Rx Instructions .ROUTE .COMPLEX RF: 0 (DME) Wheelchair See Rx Instructions .Route .MEDSUPPLY Qty: 1 RF: 0 bupropion HCl 150 mg tablet extended release 24 hr 150 mg PO DAILY Qty: 30 RF: 5 glipizide 5 mg tablet extended release 24hr 5 mg PO DAILY Qty: 90 RF: 1 lovastatin 20 mg tablet 20 mg PO DAILY@0830 Qty: 90 RF: 1 sertraline [Zoloft] 100 mg tablet 100 mg PO DAILY Qty: 90 RF: 1 tizanidine 4 mg capsule 4 mg PO Q12H Qty: 60 RF: 2 prednisone 5 mg tablet 5 mg PO DAILY@0830 RF: 0 sucralfate [Carafate] 1 gram tablet 1 g PO BID 28 Days Qty: 56 RF: 0 nitroglycerin 0.4 mg tablet, sublingual See Rx Instructions .ROUTE .COMPLEX Qty: 25 RF: 0 nystatin 100,000 unit/gram cream See Rx Instructions .ROUTE .COMPLEX Qty: 30 RF: 0 magnesium oxide 250 mg magnesium Tablet 250 mg PO BID@829,2029 RF: 0 gabapentin 800 mg tablet 800 mg PO TID@30,1229,2029 RF: 0 folic acid 1 mg tablet 1 mg PO DAILY@0830 RF: 0 ferrous sulfate 324 mg (65 mg iron) tablet,delayed release (DR/EC) 324 mg PO DAILY@0830 RF: 0 ondansetron HCl 4 mg tablet 4 mg PO Q8H PRN (Reason: NAUSEA/VOMITING) RF: 0 prochlorperazine maleate 10 mg tablet 10 mg PO Q4H PRN (Reason: NAUSEA/VOMITING) RF: 0 dexamethasone 4 mg tablet See Rx Instructions .ROUTE .COMPLEX RF: 0 Humulin R Regular U-100 Insuln 100 unit/mL solution See Rx Instructions .ROUTE .COMPLEX MDD 44 UNITS RF: 0 lorazepam 1 mg tablet 0.5 - 1 mg PO TID PRN (Reason: Anxiety) RF: 0 pantoprazole 40 mg tablet,delayed release (DR/EC) 40 mg PO DAILY RF: 0 celecoxib [Celebrex] 100 mg capsule 100 mg PO BID Qty: 20 RF: 0 Discharge Orders: Discharge ED (Routine); Ordered 05/30/21 Ordered By: Buck Middleton Referrals: Stephany Villalpando, [facility] [Primary Care Provider] - Discharge Activity: Resume usual activity Activity Restrictions/Additional Instructions: Use medication as prescribed. Follow-up with your surgeon and primary care provider about leakage around PEG tube. Coding Level of Care Code ED [employer] for Libra Cook
== END 2021-05-30 21:25 | disposition home or self-care (01) ==
PROVIDERS: Emergency Provider Nurse Practitioner Family; PCP Nurse Practitioner
DX: K94.29 Other complications of gastrostomy (principal); Z79.84 Long term (current) use of oral hypoglycemic drugs; Z79.4 Long term (current) use of insulin; J44.9 Chronic obstructive pulmonary disease, unspecified; I25.10 Atherosclerotic heart disease of native coronary artery without angina pectoris; E11.9 Type 2 diabetes mellitus without complications; E78.5 Hyperlipidemia, unspecified; I10 Essential (primary) hypertension; I25.2 Old myocardial infarction
CPT/HCPCS: 99282

== ENCOUNTER 2021-05-31 10:03 | Emergency (ER) | payer MEDICARE, SELFPAY ==
[2021-05-31 10:20] VITALS: BP 101/64; PULSE 80; RESP 16; TEMP 36.5; O2SAT 97; BMI 25.8
[2021-05-31] MEDS: oxyCODONE IR 30 mg Tablet PO (11:31)
--- NOTE | 2021-05-31 11:31 | PC.NURSE ---
Patient's feeding tube removed per PA orders, balloon deflated, and pulled. Patient tolerated well.
[2021-05-31 11:32] VITALS: BP 101/64; PULSE 80; RESP 16; TEMP 36.5; O2SAT 97
--- NOTE | 2021-05-31 12:06 | W.ED.GENADLT ---
HPI - General Adult General: Chief complaint: General Medical Stated complaint: STOMACH BLISTERS/FEEDING TUBE COMPLICATIONS Time Seen by Provider: 05/31/21 10:40 Source: patient and family Mode of arrival: wheelchair Limitations: no limitations History of Present Illness: HPI narrative: 55-year-old male presents to the ER today with to have his feeding tube removed. Patient has had ongoing issues with this since November when he had it placed. It has constantly leaked and is causing a severe rash and blistering. Patient's doctor is aware of this and when patient contacted them today they told them to remove the feeding tube. Patient did not have a syringe available at home to remove the feeding tube. He has an appointment tomorrow with his physician already scheduled. Patient admits to running out of pain meds at home and having significant pain. He was on 30 mg of oxycodone at home. Patient is requesting something in the ER today for pain. Onset (ago): month(s) Location: abdomen Severity: moderate Pain Consistency: constant Relieving factors: none Associated symptoms: Reports rash; Deny chest pain, dyspnea, headache(s), nausea, palpitations or vomiting Review of Systems General: Reports: 10 or more systems reviewed and unremarkable except in HPI and below Const: Denies: fever(s), chills or body aches ENMT: Denies: throat pain, nasal discharge or nasal congestion Card: Denies: chest pain or palpitations Resp: Denies: dyspnea, productive cough or wheezing GI: Denies: abdominal pain, nausea, vomiting, diarrhea or constipation Skin/Breast: Reports: rash Neuro: Denies: headache(s) PFSH ED PFSH: Medical History Anemia Atypical lymphocytosis Chronic kidney disease COPD (chronic obstructive pulmonary disease) Coronary artery disease Diabetes mellitus Dilutional hyponatremia (~07/2019) Dyslipidemia Esophageal adenocarcinoma Gastro-esophageal reflux disease without esophagitis Generalized anxiety disorder Hypertension Lumbago Myocardial infarct Rheumatoid arthritis Surgical History H/O heart artery stent History of colonoscopy History of endoscopy (04/13/21) 08/14/20 - Esophageal mass Port-A-Cath in place (09/29/20) Status post insertion of percutaneous endoscopic gastrostomy (PEG) tube (11/12/20) Family History Family/Other Cancer Family members in general Diabetes Family members in general Hypothyroid Family members in general Social History Quit status (tobacco): quit date established Second hand smoke exposure: No Smoking risk assessment/counseling performed?: No Alcohol intake: never Desire information about alcohol rehabilitation?: No Counseling given: No Desire information about substance/drug rehabilitation?: No Counseling given: No Caregiver/support person: No Lives independently: Yes Household members: significant other Marital status: Single History of recent travel: No Current gender identity: Male Physical Exam Const: COMMON NORMALS: patient oriented x3; negative for healthy appearing GENERAL APPEARANCE: cooperative, ill appearing and frail appearing; not comfortable HENMT: COMMON NORMALS: normocephalic and Normal external nose present HEAD & SCALP: normocephalic NOSE: Normal external nose present Eye: COMMON NORMALS: conjunctivae normal CONJUNCTIVA: Yes conjunctivae normal Neck/C-Spine: COMMON NORMALS: full ROM and no lymphadenopathy Resp: COMMON NORMALS: No retractions EFFORT & INSPECTION: Yes able to speak in complete sentences Cardio: COMMON NORMALS: regular rate and regular rhythm RATE: regular rate RHYTHM: regular rhythm GI: OTHER: Feeding tube noted in patient's abdomen. There does appear to be a rash with redness and blistering around the insertion of the tube and inferior where it has drained. Extremity: NARRATIVE EXTREMITY EXAM: At baseline, patient in wheelchair Neuro: COMMON NORMALS: patient oriented x3 and moves all extremities Psych: COMMON NORMALS: mental status grossly normal, Normal thought process present and cooperative THOUGHT PROCESS: Normal thought process present Skin: OTHER: Blistering and erythema noted to abdomen from feeding tube drainage. See abdominal exam Course ED course: Patient presents to the ER for feeding tube removal. We will go ahead and do that today and give patient one of his home medications for pain. Patient has an appointment scheduled with his specialist tomorrow to follow-up. Vital Signs: Vital signs: Vital Signs Temperature 97.7 F 05/31/21 11:32 Pulse Rate 80 05/31/21 11:32 Respiratory Rate 16 05/31/21 11:32 Blood Pressure 101/64 05/31/21 11:32 Pulse Oximetry 97 11/28/21 11:32 MDM - General Adult MDM Narrative: Medical decision making narrative: 55-year-old male presents to the ER today for feeding tube removal. Patient has already spoke with his specialist who recommended he come here to get it taken out if he did not have the means to take it out at home. Patient has a follow-up appointment tomorrow. He is out of his pain medications at home so 1 will be given in the ER today. He can follow-up tomorrow at the appointment regarding his pain. Patient is noted to have rash on the abdomen which is known by the physician and he will follow up tomorrow on. Critical Care Time Critical Care Time: Critical Care Time: No Discharge Plan Discharge Patient Disposition: Home Clinical Impression: Feeding tube dysfunction Qualifiers: Encounter type: initial encounter Qualified Code(s): T85.598A - Other mechanical complication of other gastrointestinal prosthetic devices, implants and grafts, initial encounter Condition: Stable Prescriptions: No Action oxycodone 15 mg tablet 30 mg PO Q6H PRN (Reason: Pain) RF: 0 clonazepam [Klonopin] 2 mg tablet See Rx Instructions .ROUTE .COMPLEX RF: 0 (DME) Wheelchair See Rx Instructions .Route .MEDSUPPLY Qty: 1 RF: 0 bupropion HCl 150 mg tablet extended release 24 hr 150 mg PO DAILY Qty: 30 RF: 5 glipizide 5 mg tablet extended release 24hr 5 mg PO DAILY Qty: 90 RF: 1 lovastatin 20 mg tablet 20 mg PO DAILY@0830 Qty: 90 RF: 1 sertraline [Zoloft] 100 mg tablet 100 mg PO DAILY Qty: 90 RF: 1 tizanidine 4 mg capsule 4 mg PO Q12H Qty: 60 RF: 2 prednisone 5 mg tablet 5 mg PO DAILY@0830 RF: 0 sucralfate [Carafate] 1 gram tablet 1 g PO BID 28 Days Qty: 56 RF: 0 nitroglycerin 0.4 mg tablet, sublingual See Rx Instructions .ROUTE .COMPLEX Qty: 25 RF: 0 nystatin 100,000 unit/gram cream See Rx Instructions .ROUTE .COMPLEX Qty: 30 RF: 0 magnesium oxide 250 mg magnesium Tablet 250 mg PO BID@829,2029 RF: 0 gabapentin 800 mg tablet 800 mg PO TID@0830,1230,2030 RF: 0 folic acid 1 mg tablet 1 mg PO DAILY@0830 RF: 0 ferrous sulfate 324 mg (65 mg iron) tablet,delayed release (DR/EC) 324 mg PO DAILY@0830 RF: 0 ondansetron HCl 4 mg tablet 4 mg PO Q8H PRN (Reason: NAUSEA/VOMITING) RF: 0 prochlorperazine maleate 10 mg tablet 10 mg PO Q4H PRN (Reason: NAUSEA/VOMITING) RF: 0 dexamethasone 4 mg tablet See Rx Instructions .ROUTE .COMPLEX RF: 0 Humulin R Regular U-100 Insuln 100 unit/mL solution See Rx Instructions .ROUTE .COMPLEX MDD 44 UNITS RF: 0 lorazepam 1 mg tablet 0.5 - 1 mg PO TID PRN (Reason: Anxiety) RF: 0 pantoprazole 40 mg tablet,delayed release (DR/EC) 40 mg PO DAILY RF: 0 celecoxib [Celebrex] 100 mg capsule 100 mg PO BID Qty: 20 RF: 0 Silvadene 1 % cream 1 applic topical BID PRN (Reason: wound healing) Qty: 50 RF: 0 Discharge Orders: Discharge ED (Routine); Ordered 05/31/21 Ordered By: Amber Coronel Referrals: Stephany Villalpando, [facility] [Primary Care Provider] - Discharge Diet: Usual diet Discharge Activity: Resume usual activity Patient Instructions: Opioid Safety Activity Restrictions/Additional Instructions: Continue all home medications at this time. Follow-up with doctor tomorrow at scheduled appointment. Return to the ER with new or worsening symptoms. Coding Level of Care Code ED Mental Health Aides Teacher for Libra Cook
== END 2021-05-31 11:32 | disposition home or self-care (01) ==
PROVIDERS: Emergency Provider Physician Assistant; PCP Nurse Practitioner
DX: K94.29 Other complications of gastrostomy (principal); Z79.84 Long term (current) use of oral hypoglycemic drugs; J44.9 Chronic obstructive pulmonary disease, unspecified; I25.10 Atherosclerotic heart disease of native coronary artery without angina pectoris; E11.9 Type 2 diabetes mellitus without complications; E78.5 Hyperlipidemia, unspecified; I10 Essential (primary) hypertension; I25.2 Old myocardial infarction
CPT/HCPCS: 99283

== ENCOUNTER 2021-06-01 07:03 | Outpatient (RCR) | payer MEDICARE, SELFPAY ==
[2021-06-01 09:50] LABS: Basophils % 0.2 %; Hemoglobin 10.3 g/dL (11.7-16.6); Lymphocytes # 0.4 10^3/uL (0.8-4.8); Lymphocytes % 4.7 %; Mean Corpuscular HGB Conc 31.2 g/dL (30.0-36.0); Mean Corpuscular Hemoglobin 29.7 pg (28.0-34.0); Mean Corpuscular Volume 95.1 fl (80-94); Mean Platelet Volume 9.8 fL (7.4-10.4); Monocytes # 0.2 10^3/uL (0.2-0.9); Monocytes % 2.3 %; Neutrophils # 7.84 10^3/uL (1.8-7.7); Neutrophils % 89.4 %; Nucleated Red Blood Cells % 0 %; Platelet Count 288 10^3/cmm (130-400); Red Blood Count 3.47 10^6/uL (4.1-5.3); Red Cell Distribution Width 18.3 % (12.1-15.1); White Blood Count 8.8 10^3/uL (4.0-10.0)
[2021-06-01 10:23] LABS: Alanine Aminotransferase 23 U/L (0-41); Albumin Level 3.2 g/dL (3.5-5.2); Alkaline Phosphatase 225 IU/L (40-130); Anion Gap 19.2 (5-19); Aspartate Amino Transferase 29 U/L (0-40); Blood Urea Nitrogen 37 mg/dL (6-20); Calcium 8.1 mg/dL (8.5-10.5); Carbon Dioxide 24 mmol/L (22-29); Chloride 98 mmol/L (98-107); Globulin 3.3 g/dL (1.3-4.6); Glucose 157 mg/dL (65-115); Osmolality Calculated 296 mOsm/kg (285-295); Potassium 4.2 mmol/L (3.5-5.1); Sodium 137 mmol/L (136-145); Total Bilirubin 0.5 mg/dL (0.15-1.2); Total Protein 6.5 g/dL (6.6-8.7)
[2021-06-01] MEDS: sodium chloride 0.9% 250 ML 75 ML IV (11:45)
[2021-06-01] MEDS: famotidine 20 mg/2 mL INJ IVP (11:46)
[2021-06-01] MEDS: diphenhydrAMINE 50 mg/mL SDV 1mL 25 MG IV (11:47)
[2021-06-01] MEDS: palonosetron 0.25 mg/5 mL SDV IV (11:50)
[2021-06-01] MEDS: fosaprepitant 150 MG in sodium chloride 0.9% 150 ML 300 MG IV (12:17)
== END 2021-06-02 23:59 | disposition home or self-care (01) ==
LOC: ONCMED 07:03
PROVIDERS: PCP Nurse Practitioner; Visit Provider Internal Medicine Hematology & Oncology
DX: Z51.11 Encounter for antineoplastic chemotherapy (principal); C15.5 Malignant neoplasm of lower third of esophagus; C79.51 Secondary malignant neoplasm of bone; D70.1 Agranulocytosis secondary to cancer chemotherapy; T45.1X5A Adverse effect of antineoplastic and immunosuppressive drugs, initial encounter; D47.3 Essential (hemorrhagic) thrombocythemia; Z79.899 Other long term (current) drug therapy
CPT/HCPCS: 80053; 85025; 96367; 96375; 96413; 96417; J1100; J1200; J1453; J2469; J3490; J7030; J7040; J7050; J9045; J9267

== ENCOUNTER → 2021-06-09 12:53 | Outpatient (BNVA) | payer MEDICARE, SELFPAY | PROVIDERS: PCP Nurse Practitioner; Visit Provider Internal Medicine Hematology & Oncology | DX: Z80.0 Family history of malignant neoplasm of digestive organs (principal) | CPT/HCPCS: 80053; 85025 ==

== ENCOUNTER 2021-06-10 06:16 | Outpatient (RCR) | payer MEDICARE, SELFPAY ==
[2021-06-08] MEDS: sodium chloride 0.9% 500 ML 999 ML IV (13:25)
== END 2021-06-10 09:00 | disposition home or self-care (01) ==
LOC: ONCMED 06:16
PROVIDERS: PCP Nurse Practitioner; Visit Provider Internal Medicine Hematology & Oncology
DX: C15.8 Malignant neoplasm of overlapping sites of esophagus (principal); C79.51 Secondary malignant neoplasm of bone; D70.1 Agranulocytosis secondary to cancer chemotherapy; T45.1X5A Adverse effect of antineoplastic and immunosuppressive drugs, initial encounter; D47.3 Essential (hemorrhagic) thrombocythemia; C77.8 Secondary and unspecified malignant neoplasm of lymph nodes of multiple regions; C78.7 Secondary malignant neoplasm of liver and intrahepatic bile duct; C91.Z0 Other lymphoid leukemia not having achieved remission; M06.9 Rheumatoid arthritis, unspecified; I10 Essential (primary) hypertension; E78.5 Hyperlipidemia, unspecified; E11.59 Type 2 diabetes mellitus with other circulatory complications; I25.10 Atherosclerotic heart disease of native coronary artery without angina pectoris; R50.81 Fever presenting with conditions classified elsewhere; Z79.899 Other long term (current) drug therapy
CPT/HCPCS: 96360; 99214; 99215; J7040

== ENCOUNTER 2021-06-10 09:00 | Outpatient (RCR) | payer MEDICARE, SELFPAY ==
--- NOTE | 2021-06-10 15:34 | ONC FU_ITS ---
Dr. 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 He has a history of T-cell large granular leukemia, diagnosed in April 2019, and rheumatoid arthritis, diagnosed in 2003. He had been on treatment with methotrexate and prednisone since April 2020. He then presented earlier this year with anemia and difficulty swallowing. His EGD on 08/14/2020 showed esophageal thickening with friable mucosa, biopsy of which showed moderate to poorly differentiated invasive adenocarcinoma. The tumor was found to be HER-2/stephanie negative and MSI I stable. Next generation sequencing was positive for an alteration of the CESARIO gene. It also showed high mutational burden at 14.35. Staging PET/CT on 09/11/2020 showed multiple sites of lymph node involvement, multiple hepatic metastases, and multiple sites of metastatic bone involvement. He initially underwent palliative radiation to the C5 vertebral body. He completed treatment on 11/17/2020 to a total dose of 3000 cGy administered in 10 fractions. He underwent placement of Port-A-Cath for venous access and he required placement of PEG tube for nutritional support. On 12/04/2020 he began cycle 1 of systemic chemotherapy with carboplatin/paclitaxel. He developed chemotherapy-induced neutropenia, but with growth factor support he was able to continue treatment at 3-week intervals on a day 1/day 8 schedule. His repeat PET/CT on 01/31/2021 showed FDG positive distal esophageal mass, malignant mediastinal and upper abdominal lymphadenopathy, hepatic metastatic disease, and multifocal osseous metastatic disease. Also noted was inflammatory activity at the gastrostomy site. There is no comparison to the prior PET/CT. He continued his same chemotherapy. He began his 7th cycle of treatment on 04/02/2021. I had seen him at day 8 of his 7th cycle of treatment. At that point he was having significant issues with leakage around his PEG tube site. His repeat EGD on 04/13/2021 had shown residual mass in the esophagus at 36 to 40 cm, but it was able to be easily passed with the gastroscope. With his PET/CT and endoscopy showing persistent disease and with his tumor showing high mutational burden, he was given the option to begin a trial of immunotherapy with pembrolizumab. He then returned on 05/19/2021 for cycle 1 of pembrolizumab at 200 mg by IV infusion. He developed generalized joint and muscle pain following the pembrolizumab infusion, severe enough that he was seen in the emergency room, Immunotherapy was discontinued and patient treated with hydrocortisone followed by prednisone tapering dose And he was restarted on palliative therapy with weekly carboplatin and Taxol on June 01, 2021, Next weekly dose was delayed because of progressive neutropenia and patient was sent to [facility] for evaluation regarding neutropenic fever, G-tube site infection and generalized weakness and fatigue Came for follow-up, complaining of generalized weakness and fatigue, as per patient he had low-grade fever yesterday and early this morning had profuse sweating and also noted greenish discharge from G-tube site as per patient his G-tube was replaced by Dr. Banks last week, he still has leak from G-tube. Denies any dysuria denies any shortness of breath at rest, denies any abdominal pain, denies any nausea or vomiting, denies any choking sensation, denies any diarrhea or constipation. . Medications: Aspirin 1 (81 mg) Tablet Oral daily, buPROPion HCl ER (SR) 1 (150 mg) Tablet SR 12 HR Oral daily, clonazePAM 1 (2 mg) Tablet Oral daily, [facility] Senna Plus 2 Tablet (of 8.6-50 mg) Oral daily, Cymbalta 1 Capsule (of 100 mg) Capsule Delayed Release Particles Oral daily, Ferrous Gluconate 1 (324 (37.5 fe) mg) Tablet Oral b.i.d., Ferrous Sulfate 1 (325 (65 fe) mg) Tablet Oral daily, Fish Oil 1 (1200 mg) Capsule Oral daily, Folic Acid 1 (1 mg) Tablet Oral daily, Gabapentin 1 (800 mg) Tablet Oral t.i.d., glipiZIDE ER 1 (5 mg) Tablet SR 24 HR Oral daily, Hydroxychloroquine Sulfate 2 Tablet (of 200 mg) Oral daily, Irbesartan 1 (75 mg) Tablet Oral daily, Lovastatin 1 (20 mg) Tablet Oral daily, Magnesium Oxide -Mg Supplement 1 (250 mg) Tablet Oral b.i.d., Nitroglycerin 1 (0.4 mg) Tablet, sublingual Sublingual PRN, OxyCODONE HCl 1 - 2 (30 mg) Tablet Oral q 4 hours PRN, Pantoprazole Sodium 1 (40 mg) Tablet, enteric coated Oral daily, PARoxetine HCl 1 (20 mg) Tablet Oral b.i.d., predniSONE 1 Tablet (of 20 mg) Oral daily, Sildenafil Citrate 1 (25 mg) Tablet Oral PRN, tiZANidine HCl 1 Capsule (of 4 mg) Tablet Oral q 12 hours PRN Allergies: Lisinopril Review of Systems: Review of Systems is not available for this patient. Vital Signs: Performed on Jun 10, 2021 08:27 Height - 72.00 in Weight - 159.6 lbs (LOW) BSA - 1.94 sq.m BMI - 21.65 Temperature - 97.5 F (LOW) Pulse - 97 /min Respiration - 18 /min BP - 95/66 mm(hg) O2 Sat - 97 % Pain - 4 Fatigue - 6 Performance Status: 2 - Ambulatory/capable of all self-care, unable to perform any work activities. Up and about more than 50% of waking hours. (ECOG) Physical Examination: ENMT - Dry oral mucosa no thrush or jaundice, Respiratory - Poor air entry otherwise clear, occasionally rales at the base, Cardiovascular - Regular rate and rhythm of heart, Abdomen - Soft, bowel sounds present, G-tube site covered with bandage, Extremities - No visible edema. Lab/Imaging: Test performed on Jun 01, 2021 10:53 Creatinine 1.1 mg/dL Cr Clearance (Est) 81.10 mL/min Test performed on Jun 01, 2021 09:20 Sodium 137 mmol/L Potassium 4.2 mmol/L Chloride 98 mmol/L CO2 24 mmol/L Anion Gap 19.2 BUN 37 mg/dL eGFR 69.0 mL/min Glucose 157 mg/dL Osmolality - Calculated 296 mOsm/kg Calcium 8.1 mg/dL Protein, Total 6.5 g/dL Albumin 3.2 g/dL Globulin 3.3 g/dL Bilirubin, Total 0.5 mg/dL ALT (SGPT) 23 U/L AST (SGOT) 29 U/L Alkaline Phosphatase 225 IU/L WBC 8.8 10 3/uL RBC 3.47 10 6/uL HGB 10.3 g/dL HCT 33.0 % MCV 95.1 fl MCH 29.7 pg MCHC 31.2 g/dL RDW 18.3 % Platelet Count 288 10 3/cmm MPV 9.8 fL Neutrophils 7.84 10 3/uL Lymphocytes 0.4 10 3/uL Monocytes 0.2 10 3/uL Eosinophils 0.0 10 3/uL Basophils 0.0 10 3/uL Neutrophil % 89.4 % Lymphocyte % 4.7 % Monocyte % 2.3 % Eosinophil % 0.0 % Basophils % 0.2 % NRBC % 0 % Test performed on May 19, 2021 09:32 TSH 1.25 uIU/mL Test performed on Apr 30, 2021 09:41 CBC Slide Review Slide Review Perform SLIDE REVIEWED AGREES WITH THE AUTO RESULT Test performed on Mar 11, 2021 13:04 Ferritin 551 ng/mL Iron 21 mcg/dL Vitamin B12 1032 pg/mL Iron Binding Capacity (TIBC) 210 mcg/dl % Iron Saturation 10.0 % UIBC 189 mcg/dL Test performed on Mar 05, 2021 09:00 Manual Segs % 69 % Manual Bands % 15.0 % Manual Lymphs % 10 % Atypical Lymphs % 1.0 % Total Cells Counted 100 Manual Monos % 3.0 % Manual Eos % 0 % Manual Basos % 0.0 % Metamyelocytes % 1.0 % Myelocytes % 1.0 % Anisocytosis 2+ Poikilocytosis 2+ Platelet Estimate Normal Manual Segs Abs 3.0 10/cmm Manual Bands Abs 0.6 10 3/cmm Manual Neutrophils Abs 3.6 10 3/cmm Manual Lymphocytes Abs 0.5 10 3/cmm Manual Monocytes Abs 0.1 10 3/cmm Manual Eosinophils Abs 0.0 10 3/cmm Manual Basophils Abs 0.0 10 3/cmm Test performed on Feb 11, 2021 13:34 Macrocytosis 1+ Ovalocytes Trace Schistocytes Trace Impression: 1. Moderate to poorly differentiated invasive adenocarcinoma of the esophagus, stage IV, with PET/CT evidence of metastatic involvement in lymph nodes, liver, and bone. His tumor was found to be HER-2 negative and MSI stable. Next generation sequencing showed high mutational burden at 14.35 and it also showed alteration in the CESARIO gene. 2. T-cell large granular leukemia. 3. Rheumatoid arthritis. 4. Hypertension. 5. Hyperlipidemia. 6. Type 2 diabetes. 7. Coronary artery disease. 8. Degenerative arthritis. Plan: Discussed with patient regarding his labs checked on June 09, 2021, white blood count 1.3 hemoglobin 9.8 hematocrit 31.7 platelets 174,000 ANC 190 Clinically, patient is in mild to moderate distress due to generalized weakness and fatigue, and G-tube site infection and now with neutropenic fever, patient was started on Levaquin yesterday for neutropenic fever. At this point, we will send him to emergency room for evaluation for possible inpatient care. Signed By: Asaf Ramachandran M.D. <<Signature on File>>
== END 2021-06-14 08:00 | disposition home or self-care (01) ==
LOC: ONCMED 09:00
PROVIDERS: PCP Nurse Practitioner; Visit Provider Internal Medicine Hematology & Oncology
DX: C15.8 Malignant neoplasm of overlapping sites of esophagus (principal); C77.8 Secondary and unspecified malignant neoplasm of lymph nodes of multiple regions; C78.7 Secondary malignant neoplasm of liver and intrahepatic bile duct; C79.51 Secondary malignant neoplasm of bone; C91.Z0 Other lymphoid leukemia not having achieved remission; M06.9 Rheumatoid arthritis, unspecified; I10 Essential (primary) hypertension; E78.5 Hyperlipidemia, unspecified; E11.59 Type 2 diabetes mellitus with other circulatory complications; I25.10 Atherosclerotic heart disease of native coronary artery without angina pectoris; D70.1 Agranulocytosis secondary to cancer chemotherapy; R50.81 Fever presenting with conditions classified elsewhere; T45.1X5A Adverse effect of antineoplastic and immunosuppressive drugs, initial encounter; Z79.899 Other long term (current) drug therapy
CPT/HCPCS: 99214; 99215

== ENCOUNTER 2021-06-10 09:04 | Emergency (ER) | payer MEDICARE, SELFPAY ==
--- NOTE | 2021-06-10 09:09 | XR_ITS ---
WS: [id number] Exam: XR chest 1V portable [id number] Date/Time of Exam: 06/10/2021 9:20 AM Reason For Exam: weakness, fever, chemo pt Comparison 12/05/2020. The lungs are clear and fully expanded. Normal cardiomediastinal silhouette. No pleural effusion seen . A left subclavian port ends in the lower one third of the SVC in good position. Bony structures are intact. XR/XR chest 1V portable [id number] IMPRESSION: 1. No acute cardiopulmonary finding.
[2021-06-10 09:16] VITALS: BP 86/61; PULSE 89; RESP 13; TEMP 36.7; O2SAT 99
--- NOTE | 2021-06-10 11:30 | ED_ITS ---
HPI - Skin/Abscess/Foreign Bdy General: Chief complaint: Skin/Abscess/Foreign Body Stated complaint: FEEDING TUBE COMPLICATIONS/LEAKING&BURNING PAIN Time Seen by Provider: 06/10/21 09:30 History of Present Illness: HPI narrative: 56-year-old male presents to the emergency room from Dr. Ramachandran's office. Patient has known esophageal cancer and is undergoing chemotherapy. He has a PEG tube in place. He has had leakage of gastric contents around the PEG tube going on for some time he has a some erosion of the skin inferior to the os of the PEG tube and is mildly reddened is not indurated does not appear to be infected. He also recently was treated for chemotherapy and has neutropenia with an ANC of 190. Patient reports having a temp yesterday of 99 5. Temp on arrival here is 91. Biggest complaint is a drainage of gastric contents around the irritating the skin. MD complaint: rash Location: generalized Severity: moderate Quality: burning Pain Consistency: constant Relieving factors: none Exacerbating factors: none Associated symptoms: Reports cough and myalgias; Deny arthralgias, chills, fever(s), itching, nausea, rigidity, short of breath or vomiting Treatments prior to arrival: bandages Review of Systems Const: Denies: fever(s) or chills ENMT: Denies: throat pain, ear or mastoid pain, nasal discharge or nasal congestion Card: Denies: chest pain, edema, dyspnea on exertion or orthopnea Resp: Denies: dyspnea, productive cough or non-productive cough GI: Denies: nausea or vomiting : Denies: flank pain, dysuria, urinary frequency or urinary urgency Skin/Breast: Denies: rash or pruritus PFSH ED PFSH: Medical History Anemia Atypical lymphocytosis Chronic kidney disease COPD (chronic obstructive pulmonary disease) Coronary artery disease Diabetes mellitus Dilutional hyponatremia (~07/2019) Dyslipidemia Esophageal adenocarcinoma Gastro-esophageal reflux disease without esophagitis Generalized anxiety disorder Hypertension Lumbago Myocardial infarct Rheumatoid arthritis Surgical History H/O heart artery stent History of colonoscopy History of endoscopy (04/13/21) 08/14/20 - Esophageal mass Port-A-Cath in place (09/29/20) Status post insertion of percutaneous endoscopic gastrostomy (PEG) tube (11/12/20) Family History Family/Other Cancer Family members in general Diabetes Family members in general Hypothyroid Family members in general Social History Quit status (tobacco): quit date established Second hand smoke exposure: No Smoking risk assessment/counseling performed?: No Alcohol intake: never Desire information about alcohol rehabilitation?: No Counseling given: No Desire information about substance/drug rehabilitation?: No Counseling given: No Caregiver/support person: No Lives independently: Yes Household members: significant other Marital status: Single History of recent travel: No Current gender identity: Male Physical Exam Const: COMMON NORMALS: no acute distress GENERAL APPEARANCE: cooperative and comfortable ORIENTATION/CONSCIOUSNESS: Yes awake, Yes oriented to person, Yes oriented to place and Yes oriented to time HENMT: COMMON NORMALS: normocephalic, atraumatic, hearing grossly normal bilaterally, external ears normal, EAC's normal, TM's normal bilaterally, Normal nasal mucous membranes and turbinates present, moist oral mucous membranes and oropharynx normal HEAD & SCALP: normocephalic and atraumatic NOSE: Normal nasal mucous membranes and turbinates present EXTERNAL EAR: Yes external ears normal EXTERNAL AUDITORY CANAL: EAC's normal TYMPANIC MEMBRANE: TM's normal bilaterally Neck/C-Spine: COMMON NORMALS: no JVD Resp: COMMON NORMALS: normal respiratory effort, No retractions, No use of accessory muscles and clear to auscultation bilaterally AUSCULTATION: clear to auscultation bilaterally Cardio: COMMON NORMALS: no JVD, regular rate, regular rhythm and No murmurs present (Cardio) RATE: regular rate RHYTHM: regular rhythm GI: COMMON NORMALS: Soft to palpation and No hepatosplenomegaly present AUSCULTATION: Yes normoactive bowel sounds PALPATION: Yes Soft to palpation, No Tenderness to palpation present (GI), No Guarding due to palpation present (GI) and Yes No hepatosplenomegaly present Extremity: COMMON NORMALS: normal to inspection, capillary refill normal, no clubbing, cyanosis or edema, no calf tenderness and no pedal edema Neuro: SENSORIUM/ORIENTATION: Yes oriented to person, Yes oriented to place and Yes oriented to time Skin: COMMON NORMALS: no rashes or lesions noted GENERAL SKIN EXAM: no rashes or lesions noted Course Vital Signs: Vital signs: Vital Signs Temperature 98.1 F 06/10/21 09:16 Pulse Rate 67 06/10/21 16:21 Respiratory Rate 15 06/10/21 16:21 Blood Pressure 97/59 06/10/21 16:21 Pulse Oximetry 95 06/10/21 16:21 MDM - Skin/Abscess/Foreign Bdy MDM Narrative: Medical decision making narrative: Patient still has significant neutropenia although it is improved from previous he is currently taking Levaquin. I cannot find a source of infection at this time. We will irritation and some abrasion of the skin inferior to the PEG tube site from gastric secretions that are leaking in fact we witnessed this several times and cleaning the area. Discussed with Dr. Ramachandran we all agree he can go home and the patient prefer to go home at this point will continue on levofloxacin increased him to 750 daily till the cultures are back. Talk to Dr. Banks will have him be seen later this week for evaluation for management of the PEG tube until that time recommend that he liberally apply Vaseline to the irritated area to protect it from gastric secretions he should do this at least 3 times a day and demonstrated to him how to put interlocking 4 x 4 bandages underneath the flange of the PEG tube to try to absorb any drainage and also to pin the bulb to the inner aspect of the abdominal wall and stomach to minimize leakage. Lab Data: Labs: Lab Results 06/10/21 06/10/21 06/10/21 11:15 11:15 11:15 WBC Cancelled Corrected WBC Cancelled RBC Cancelled Hgb Cancelled Hct Cancelled MCV Cancelled MCH Cancelled MCHC Cancelled RDW Cancelled Plt Count Cancelled MPV Cancelled Gran % Cancelled Neut % (Auto) Cancelled Lymph % (Auto) Cancelled [place] % (Auto) Cancelled Eos % (Auto) Cancelled Baso % (Auto) Cancelled Neut # (Auto) Cancelled Lymph # (Auto) Cancelled [place] # (Auto) Cancelled Eos # (Auto) Cancelled Baso # (Auto) Cancelled Absolute Gran (aut o) Cancelled Nucleated RBC % (a uto) Cancelled Nucleated RBCs # Cancelled Sodium Cancelled Potassium Cancelled Chloride Cancelled Carbon Dioxide Cancelled Anion Gap Cancelled BUN Cancelled Creatinine Cancelled GFR Calculation Cancelled Glucose Cancelled Calculated Osmolal ity Cancelled Lactic Acid 1.9 mmol/L mmol/L (0.5-2.2) Calcium Cancelled Total Bilirubin Cancelled AST Cancelled ALT Cancelled Alkaline Phosphata se Cancelled C-Reactive Protein Total Protein Cancelled Albumin Cancelled Globulin Cancelled Urine Color Urine Appearance Urine pH Ur Specific Gravit y Urine Protein Urine Glucose (UA) Urine Ketones Urine Blood Urine Nitrate Urine Bilirubin Urine Urobilinogen Ur Leukocyte Cydney ase Urine RBC Urine WBC Ur Squamous Epith Cells Amorphous Sediment Urine Bacteria Hyaline Casts Urine Mucus 06/10/21 06/10/21 06/10/21 12:30 12:30 12:30 WBC 1.1 10^3/uL L 10^ 3/uL (4.0-10.0) Corrected WBC RBC 3.03 10^6/uL L 10 ^6/uL (4.1-5.3) Hgb 8.7 g/dL L g/dL (11.7-16.6) Hct 28.4 % L % (42.0-52.0) MCV 93.7 fl fl (80-94) MCH 28.7 pg pg (28.0-34.0) MCHC 30.6 g/dL g/dL (30.0-36.0) RDW 16.9 % H % (12.1-15.1) Plt Count 153 10^3/cmm 10^3 /cmm (130-400) MPV 9.8 fL fL (7.4-10.4) Gran % Neut % (Auto) 43.4 % % Lymph % (Auto) 27.4 % % [place] % (Auto) 27.4 % % Eos % (Auto) 0.0 % % Baso % (Auto) 0.9 % % Neut # (Auto) 0.46 10^3/uL L* 1 0^3/uL (1.8-7.7) Lymph # (Auto) 0.3 10^3/uL L 10^ 3/uL (0.8-4.8) [place] # (Auto) 0.3 10^3/uL 10^3/ uL (0.2-0.9) Eos # (Auto) 0.0 10^3/uL 10^3/ uL (0.0-0.8) Baso # (Auto) 0.0 10^3/uL 10^3/ uL (0.0-0.1) Absolute Gran (aut o) Nucleated RBC % (a uto) 0 % % Nucleated RBCs # 0.0 /100WBC /100W BC Sodium 136 mmol/L mmol/L (136-145) Potassium 4.1 mmol/L mmol/L (3.5-5.1) Chloride 97 mmol/L L mmol/ L (98-107) Carbon Dioxide 21 mmol/L L mmol/ L (22-29) Anion Gap 22.1 H (5-19) BUN 17 mg/dL mg/dL (6-20) Creatinine 0.9 mg/dL mg/dL (0.7-1.2) GFR Calculation 86.7 mL/min L mL/ min (90-130) Glucose 84 mg/dL mg/dL (65-115) Calculated Osmolal ity 283 mOsm/kg L mOs m/kg (285-295) Lactic Acid Calcium 7.7 mg/dL L mg/dL (8.5-10.5) Total Bilirubin 0.3 mg/dL mg/dL (0.15-1.2) AST 24 U/L U/L (0-40) ALT 23 U/L U/L (0-41) Alkaline Phosphata se 162 IU/L H IU/L (40-130) C-Reactive Protein 267.6 mg/L H mg/L (0.0-4.9) Total Protein 5.8 g/dL L g/dL (6.6-8.7) Albumin 2.9 g/dL L g/dL (3.5-5.2) Globulin 2.9 g/dL g/dL (1.3-4.6) Urine Color Urine Appearance Urine pH Ur Specific Gravit y Urine Protein Urine Glucose (UA) Urine Ketones Urine Blood Urine Nitrate Urine Bilirubin Urine Urobilinogen Ur Leukocyte Cydney ase Urine RBC Urine WBC Ur Squamous Epith Cells Amorphous Sediment Urine Bacteria Hyaline Casts Urine Mucus 06/10/21 14:45 WBC Corrected WBC RBC Hgb Hct MCV MCH MCHC RDW Plt Count MPV Gran % Neut % (Auto) Lymph % (Auto) [place] % (Auto) Eos % (Auto) Baso % (Auto) Neut # (Auto) Lymph # (Auto) [place] # (Auto) Eos # (Auto) Baso # (Auto) Absolute Gran (aut o) Nucleated RBC % (a uto) Nucleated RBCs # Sodium Potassium Chloride Carbon Dioxide Anion Gap BUN Creatinine GFR Calculation Glucose Calculated Osmolal ity Lactic Acid Calcium Total Bilirubin AST ALT Alkaline Phosphata se C-Reactive Protein Total Protein Albumin Globulin Urine Color Dark yellow (Yellow) Urine Appearance Clear (CLEAR) Urine pH 5 (5-7) Ur Specific Gravit y 1.020 (1.005-1.030) Urine Protein Neg (Negative) Urine Glucose (UA) Norm (Normal) Urine Ketones 1+ H (Negative) Urine Blood Neg (Negative) Urine Nitrate Negative (Negative) Urine Bilirubin 1+ H (Negative) Urine Urobilinogen Norm mg/dL mg/dL (Negative) Ur Leukocyte Cydney ase Negative (Negative) Urine RBC None /hpf /hpf (0-2) Urine WBC 0-4 /hpf H /hpf (0-5) Ur Squamous Epith Cells None /hpf /hpf (0-5) Amorphous Sediment Not Reportable Urine Bacteria None /hpf /hpf (NONE) Hyaline Casts 5-10 /lpf H /lpf Urine Mucus 3+ /hpf /hpf Discharge Plan Discharge Patient Disposition: Home Clinical Impression: Neutropenia, Esophageal adenocarcinoma, Irritation symptom of skin, Leaking PEG tube Condition: Stable Prescriptions: New levofloxacin 750 mg tablet 750 mg PO DAILY 7 Days Qty: 7 RF: 0 No Action (DME) Wheelchair See Rx Instructions .Route .MEDSUPPLY Qty: 1 RF: 0 lovastatin 20 mg tablet 20 mg PO DAILY@0830 Qty: 90 RF: 1 oxycodone 15 mg tablet 30 mg PO Q6H PRN (Reason: Pain - metastatic cancer) 7 Days Qty: 30 RF: 0 metoclopramide HCl [Reglan] 5 mg tablet 5 mg PO TID 30 Days Qty: 90 RF: 2 nitroglycerin 0.4 mg tablet, sublingual See Rx Instructions .ROUTE .COMPLEX Qty: 25 RF: 0 folic acid 1 mg tablet 1 mg PO DAILY@0830 RF: 0 ondansetron HCl 4 mg tablet 4 mg PO Q8H PRN (Reason: NAUSEA/VOMITING) RF: 0 prochlorperazine maleate 10 mg tablet 10 mg PO Q4H PRN (Reason: NAUSEA/VOMITING) RF: 0 dexamethasone 4 mg tablet See Rx Instructions .ROUTE .COMPLEX RF: 0 Humulin R Regular U-100 Insuln 100 unit/mL solution See Rx Instructions .ROUTE .COMPLEX RF: 0 lorazepam 1 mg tablet 0.5 - 1 mg PO TID PRN (Reason: Anxiety) RF: 0 pantoprazole 40 mg tablet,delayed release (DR/EC) 40 mg PO DAILY RF: 0 silver sulfadiazine [Silvadene] 1 % cream 1 applic topical BID PRN (Reason: wound healing) Qty: 50 RF: 0 prednisone 20 mg tablet 20 mg PO QAM RF: 0 clonazepam 1 mg tablet 1 mg PO DAILY PRN (Reason: Anxiety) RF: 0 esomeprazole magnesium 40 mg capsule,delayed release(DR/EC) 40 mg PO QAM RF: 0 levofloxacin 500 mg tablet 500 mg PO DAILY RF: 0 Whey Protein 20 gram-110 kcal/28 gram Powder See Rx Instructions .ROUTE .COMPLEX RF: 0 magnesium 1 tab PO QAM RF: 0 Zoloft 100 mg tablet 100 mg PO QAM RF: 0 glipizide 5 mg tablet extended release 24hr 5 mg PO QAM RF: 0 nystatin 100,000 unit/gram cream See Rx Instructions .ROUTE .COMPLEX RF: 0 bupropion HCl 150 mg tablet extended release 24 hr 150 mg PO QAM RF: 0 tizanidine 4 mg capsule 4 mg PO BEDTIME RF: 0 Discharge Orders: Discharge ED (Routine); Ordered 06/10/21 Ordered By: Marcial Pierre Referrals: Stephany Villalpando, [facility] [Primary Care Provider] - Patient Instructions: Opioid Safety Coding Level of Care Code ED Ice Cream Machine Operator for Libra Cook
[2021-06-10 12:08] LABS: Lactic Sepsis W/Reflex 1.9 mmol/L (0.5-2.2)
[2021-06-10 12:41] LABS: Basophils % 0.9 %; Hematocrit 28.4 % (42.0-52.0); Hemoglobin 8.7 g/dL (11.7-16.6); Lymphocytes # 0.3 10^3/uL (0.8-4.8); Lymphocytes % 27.4 %; Mean Corpuscular HGB Conc 30.6 g/dL (30.0-36.0); Mean Corpuscular Hemoglobin 28.7 pg (28.0-34.0); Mean Corpuscular Volume 93.7 fl (80-94); Mean Platelet Volume 9.8 fL (7.4-10.4); Monocytes # 0.3 10^3/uL (0.2-0.9); Monocytes % 27.4 %; Neutrophils % 43.4 %; Nucleated Red Blood Cells % 0 %; Platelet Count 153 10^3/cmm (130-400); Red Blood Count 3.03 10^6/uL (4.1-5.3); Red Cell Distribution Width 16.9 % (12.1-15.1); White Blood Count 1.1 10^3/uL (4.0-10.0)
[2021-06-10 12:47] VITALS: BP 91/64; RESP 16; O2SAT 98
[2021-06-10 13:01] LABS: Alanine Aminotransferase 23 U/L (0-41); Albumin Level 2.9 g/dL (3.5-5.2); Alkaline Phosphatase 162 IU/L (40-130); Anion Gap 22.1 (5-19); Aspartate Amino Transferase 24 U/L (0-40); Blood Urea Nitrogen 17 mg/dL (6-20); Calcium 7.7 mg/dL (8.5-10.5); Carbon Dioxide 21 mmol/L (22-29); Chloride 97 mmol/L (98-107); Globulin 2.9 g/dL (1.3-4.6); Glomerular Filtration Rate 86.7 mL/min (90-130); Glucose 84 mg/dL (65-115); Osmolality Calculated 283 mOsm/kg (285-295); Potassium 4.1 mmol/L (3.5-5.1); Sodium 136 mmol/L (136-145); Total Bilirubin 0.3 mg/dL (0.15-1.2); Total Protein 5.8 g/dL (6.6-8.7)
[2021-06-10 13:02] LABS: C Reactive Protein 267.6 mg/L (0.0-4.9)
[2021-06-10 13:09] LABS: Neutrophils # 0.46 10^3/uL (1.8-7.7); Slide Review Slide Review Perform
[2021-06-10] MEDS: sodium chloride 0.9% 1,000 ML 999 ML IV (14:35)
[2021-06-10 15:09] LABS: Add Urine Microscopic? YES; Bilirubin Urine 1+ (Negative); Blood Urine Neg (Negative); Glucose Urine UA Norm (Normal); Ketones Urine 1+ (Negative); Leukocyte Esterase Urine Negative (Negative); Nitrate Urine Negative (Negative); Protein Urine Neg (Negative); Urine Appearance Clear (CLEAR); Urine Color Dark Yellow (Yellow); Urobilinogen Urine Norm (Negative); pH Urine 5 (5-7)
[2021-06-10 15:10] LABS: Add Urine Culture? No; Mucus Urine 3+ /hpf; WBC Urine 0-4 /hpf (0-5)
[2021-06-10 16:21] VITALS: BP 97/59; PULSE 67; RESP 15; O2SAT 95
== END 2021-06-10 16:22 | disposition home or self-care (01) ==
PROVIDERS: Physician Assistant; Emergency Provider Family Medicine; PCP Nurse Practitioner
DX: K94.29 Other complications of gastrostomy (principal); D70.9 Neutropenia, unspecified; C15.9 Malignant neoplasm of esophagus, unspecified; L98.9 Disorder of the skin and subcutaneous tissue, unspecified; Z79.84 Long term (current) use of oral hypoglycemic drugs; Z79.4 Long term (current) use of insulin; J44.9 Chronic obstructive pulmonary disease, unspecified; I25.10 Atherosclerotic heart disease of native coronary artery without angina pectoris; E11.9 Type 2 diabetes mellitus without complications; E78.5 Hyperlipidemia, unspecified; I10 Essential (primary) hypertension; I25.2 Old myocardial infarction
CPT/HCPCS: 36415; 71045; 80053; 81001; 83605; 85025; 86140; 87040; 87205; 96360; 99283; J7030

== ENCOUNTER 2021-06-14 10:09 | Observation (INO) | payer MEDICARE, SELFPAY ==
[2021-06-14] VITALS (18 sets, daily range): BP systolic 77–96; BP diastolic 41–61; PULSE 60–103; RESP 13–22; TEMP 36.6–37.5; O2SAT 92–100; BMI 25.1
--- NOTE | 2021-06-14 10:20 | ED_ITS ---
HPI - Abdominal Pain General: Chief Complaint: Abdominal Pain Stated Complaint: ABD PAIN, FEEDING TUBE PROBLEMS Time Seen by Provider: 06/14/21 10:20 History of Present Illness: HPI narrative: Mr. Sandoval is a 56 year old male with past medical history of Invasive adenocarcinoma of esophagus stage 4, T cell large granular leukemia, HTN, HLD, DM, coronary disease s/p pci 3 stents, rheumatoid arthritis presents to the emergency department due to abdominal pain and concern over G-tube. He has had trouble with his G-tube with number of times and was last changed a number of weeks ago. He primarily complains of leaking around the tube including when he flushes medications or feeds through it. He has localized skin irritation and concern for infection. He tries to keep the area clean and dry however course of symptoms and appearance has been worsening. Intensity is now moderate to severe. He reports mild generalized symptoms including rib pain and cough. He has had fevers at home. He was previously started on 06/10 on Levaquin which he has been taking for neutropenic fever. No other specific changes in health, exacerbating, or relieving factors. Review of Systems General: Reports: 10 or more systems reviewed and unremarkable except in HPI and below PFSH ED PFSH: Medical History 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 Anemia Atypical lymphocytosis Chronic kidney disease COPD (chronic obstructive pulmonary disease) Coronary artery disease Diabetes mellitus Dilutional hyponatremia (~07/2019) Dyslipidemia Esophageal adenocarcinoma Gastro-esophageal reflux disease without esophagitis Generalized anxiety disorder Hypertension Lumbago Myocardial infarct Rheumatoid arthritis Surgical History H/O heart artery stent History of colonoscopy History of endoscopy (04/13/21) 08/14/20 - Esophageal mass Port-A-Cath in place (09/29/20) Status post insertion of percutaneous endoscopic gastrostomy (PEG) tube (11/12/20) Family History Family/Other Cancer Family members in general Diabetes Family members in general Hypothyroid Family members in general Social History Quit status (tobacco): quit date established Second hand smoke exposure: No Smoking risk assessment/counseling performed?: No Alcohol intake: never Desire information about alcohol rehabilitation?: No Counseling given: No Desire information about substance/drug rehabilitation?: No Counseling given: No Caregiver/support person: No Lives independently: Yes Household members: significant other Marital status: Single History of recent travel: No Current gender identity: Male Physical Exam Narrative: EXAM NARRATIVE: GENERAL/CONSTITUTIONAL - somewhat ill appearance. Eyes - PERRL, no conjunctival injection ENMT - Atraumatic external nose and ears. Moist mucous membranes NECK - supple. trachea midline CARDIOVASCULAR -tachycardic rate and regular rhythm. RESPIRATORY -clear to auscultation bilaterally. No retractions or accessory muscle use. ABDOMEN/GI - tenderness to palpation generalized. No evidence of remote peritonitis. Large local area of skin breakdown around G-tube site. May be chemical irritation however there also appears to be some cellulitis. MSK - Extremities without obvious deformity or tenderness to palpation SKIN - Warm, Dry NEURO - alert and appropriately oriented. Moves all extremities equally. Course ED course: - Patient was seen and evaluated by me at bedside - Patient placed on cardiac monitors, IV access obtained - Initial evaluation notable for exam as above -Symptom treatment ordered - Labs notable for no leukocytosis, normocytic anemia. Metabolic panel without acute derangement to explain patient's symptoms. - Imaging notable for no acute lobar consolidation on chest x-ray. CT abdomen pelvis with evidence of worsening oncologic process, otherwise no acute finding - Discussed the case with the patient's oncology team. Challenging situation, he does report fevers despite being on antibiotics and is tachycardic with somewhat ill appearance. I am concerned that there is a superimposed infection around his G-tube site. Therefore patient requires further inpatient management, antibiotics and fluids given. Steroids given after discussion with oncology. - Upon serial reexamination after treatment the patient was mildly improved - Based on patient history, evaluation, labs, and imaging as interpreted the most likely cause of the patient's condition is cellulitis - The results of ED evaluation were discussed with the patient including plan for admission due to requirement for level of care not available if discharged to prevent significant worsening/deterioration. -Hospitalist service contacted and agreed admit patient. - Patient was admitted without further deterioration or significant events. Vital Signs: Vital signs: Vital Signs Temperature 99.2 F 06/17/21 17:17 Pulse Rate 97 06/17/21 17:17 Respiratory Rate 16 06/17/21 17:17 Blood Pressure 93/59 06/17/21 17:17 Pulse Oximetry 90 06/17/21 17:17 MDM - Abdominal Pain 2 Medical Records: Attestation: I reviewed the patient's medical records. Lab Data: Attestation: I reviewed the patient's lab results. Labs: Lab Results 06/14/21 06/14/21 06/14/21 10:44 10:44 10:44 WBC 4.9 10^3/uL 10^3/ uL (4.0-10.0) RBC 3.44 10^6/uL L 10 ^6/uL (4.1-5.3) Hgb 9.8 g/dL L g/dL (11.7-16.6) Hct 31.9 % L % (42.0-52.0) MCV 92.7 fl fl (80-94) MCH 28.5 pg pg (28.0-34.0) MCHC 30.7 g/dL g/dL (30.0-36.0) RDW 17.7 % H % (12.1-15.1) Plt Count 169 10^3/cmm 10^3 /cmm (130-400) MPV 9.4 fL fL (7.4-10.4) Neut % (Auto) 60.6 % % Lymph % (Auto) 24.4 % % [place] % (Auto) 12.6 % % Eos % (Auto) 0.2 % % Baso % (Auto) 0.6 % % Neut # (Auto) 2.98 10^3/uL 10^3 /uL (1.8-7.7) Lymph # (Auto) 1.2 10^3/uL 10^3/ uL (0.8-4.8) [place]ipley # (Auto) 0.6 10^3/uL 10^3/ uL (0.2-0.9) Eos # (Auto) 0.0 10^3/uL 10^3/ uL (0.0-0.8) Baso # (Auto) 0.0 10^3/uL 10^3/ uL (0.0-0.1) Nucleated RBC % (a uto) 0.4 % % Nucleated RBCs # 0.0 /100WBC /100W BC Sodium 139 mmol/L mmol/L (136-145) Potassium 3.4 mmol/L L mmol /L (3.5-5.1) Chloride 100 mmol/L mmol/L (98-107) Carbon Dioxide 25 mmol/L mmol/L (22-29) Anion Gap 17.4 (5-19) BUN 13 mg/dL mg/dL (6-20) Creatinine 1.1 mg/dL mg/dL (0.7-1.2) GFR Calculation 68.8 mL/min L mL/ min (90-130) Glucose 87 mg/dL mg/dL (65-115) Calculated Osmolal ity 287 mOsm/kg mOsm/ kg (285-295) Lactic Acid 2.3 mmol/L H mmol /L (0.5-2.2) Lactic Acid (Sepsi s) Calcium 7.6 mg/dL L mg/dL (8.5-10.5) Total Bilirubin 0.3 mg/dL mg/dL (0.15-1.2) AST 27 U/L U/L (0-40) ALT 22 U/L U/L (0-41) Alkaline Phosphata se 199 IU/L H IU/L (40-130) Troponin T Baselin e Troponin T 120 Min [place] Troponin T Total Protein 5.8 g/dL L g/dL (6.6-8.7) Albumin 3.2 g/dL L g/dL (3.5-5.2) Globulin 2.6 g/dL g/dL (1.3-4.6) Lipase 13 U/L U/L (13-60) Urine Color Urine Appearance Urine pH Ur Specific Gravit y Urine Protein Urine Glucose (UA) Urine Ketones Urine Blood Urine Nitrate Urine Bilirubin Urine Urobilinogen Ur Leukocyte Cydney ase Influenza Type A A g Influenza Type B A g SARS-CoV-2 Ag (Rap id) 06/14/21 06/14/21 06/14/21 10:44 10:46 10:46 WBC RBC Hgb Hct MCV MCH MCHC RDW Plt Count MPV Neut % (Auto) Lymph % (Auto) [place] % (Auto) Eos % (Auto) Baso % (Auto) Neut # (Auto) Lymph # (Auto) [place] # (Auto) Eos # (Auto) Baso # (Auto) Nucleated RBC % (a uto) Nucleated RBCs # Sodium Potassium Chloride Carbon Dioxide Anion Gap BUN Creatinine GFR Calculation Glucose Calculated Osmolal ity Lactic Acid Lactic Acid (Sepsi s) Calcium Total Bilirubin AST ALT Alkaline Phosphata se Troponin T Baselin e 21 ng/L H ng/L (0-15) Troponin T 120 Min [place] Troponin T Total Protein Albumin Globulin Lipase Urine Color Urine Appearance Urine pH Ur Specific Gravit y Urine Protein Urine Glucose (UA) Urine Ketones Urine Blood Urine Nitrate Urine Bilirubin Urine Urobilinogen Ur Leukocyte Cydney ase Influenza Type A A g Negative (Negative) Influenza Type B A g Negative (Negative) SARS-CoV-2 Ag (Rap id) Negative (Negative) 06/14/21 06/14/21 06/14/21 11:01 12:10 12:30 WBC RBC Hgb Hct MCV MCH MCHC RDW Plt Count MPV Neut % (Auto) Lymph % (Auto) [place] % (Auto) Eos % (Auto) Baso % (Auto) Neut # (Auto) Lymph # (Auto) [place] # (Auto) Eos # (Auto) Baso # (Auto) Nucleated RBC % (a uto) Nucleated RBCs # Sodium Potassium Chloride Carbon Dioxide Anion Gap BUN Creatinine GFR Calculation Glucose Calculated Osmolal ity Lactic Acid Lactic Acid (Sepsi s) 0.8 mmol/L mmol/L (0.5-2.2) Calcium Total Bilirubin AST ALT Alkaline Phosphata se Troponin T Baselin e Troponin T 120 Min [place] 21.10 ng/L H ng/L (0-15) Delta Troponin T 0.10 ABS# ABS# (0-10) Total Protein Albumin Globulin Lipase Urine Color Yellow (Yellow) Urine Appearance Clear (CLEAR) Urine pH 7 (5-7) Ur Specific Gravit y 1.005 (1.005-1.030) Urine Protein Neg (Negative) Urine Glucose (UA) Norm (Normal) Urine Ketones Negative (Negative) Urine Blood Neg (Negative) Urine Nitrate Negative (Negative) Urine Bilirubin Neg (Negative) Urine Urobilinogen Norm mg/dL mg/dL (Negative) Ur Leukocyte Cydney ase Negative (Negative) Influenza Type A A g Influenza Type B A g SARS-CoV-2 Ag (Rap id) EKG Data ^: EKG 1: Attestation: I personally reviewed and interpreted this EKG as follows: EKG interpretation date: 06/14/21 EKG interpretation time: 11:05 Interpretation: Twelve-lead EKG shows a regular rhythm at a rate of 92. AK interval 183, QRS duration 92, QTc 379. Normal axis. Interpretation: Sinus rhythm. EKG 2: Attestation: I personally reviewed and interpreted this EKG as follows: EKG interpretation date: 06/14/21 EKG interpretation time: 16:47 Interpretation: Twelve-lead EKG shows a regular rhythm at a rate of 65. AK interval 212, QRS duration 120, QTc 423. Normal axis. Interpretation: Sinus rhythm. First-degree AV block. EKG 3: Attestation: I personally reviewed and interpreted this EKG as follows: EKG interpretation date: 06/14/21 EKG interpretation time: 12:45 Interpretation: Twelve-lead EKG shows a regular rhythm at a rate of 78. AK interval 193, QRS duration 118, QTc 409. Normal axis. Interpretation: Sinus rhythm. Nonspecific ST segment abnormalities. Discharge Plan Discharge Patient Disposition: Admitted As Inpatient Admit Provider: Mamta Dooley Clinical Impression: Cellulitis, SIRS (systemic inflammatory response syndrome), Immunocompromised, Leaking PEG tube Condition: Stable Discharge Diet: Soft Mechanical and Resume prior tube feeds Discharge Activity: Increase activity as tolerated Coding Level of Care Code ED Tank Welder for Libra Cook
--- NOTE | 2021-06-14 10:41 | XRR_ITS ---
PROCEDURE INFORMATION: Exam: XR Chest Exam date and time: 06/14/2021 10:41 AM Age: 56 years old Clinical indication: Cough and fever; Additional info: Cough, fever TECHNIQUE: Imaging protocol: XR of the chest. Views: 1 view. Total images: 1 COMPARISON: CR XR chest 1V portable [id number] 06/10/2021 9:29 AM FINDINGS: Tubes, catheters and devices: A left infusion port is present. Lungs: Coarse chronic pulmonary markings. Trace atelectasis or scar noted in the left lung base. Pleural spaces: Unremarkable. No pleural effusion. No pneumothorax. Heart/Mediastinum: Unremarkable. No cardiomegaly. Bones/joints: Osseous structures are unchanged from the prior exam. XR/XR chest 1V portable [id number] IMPRESSION: 1. Coarse chronic pulmonary markings. 2. Trace atelectasis or scar noted in the left lung base.
--- NOTE | 2021-06-14 10:42 | ECG_ITS ---
[facility] Test Date: 2021-06-14 Pat Name: Maximino Sandoval Department: Room: Gender: Male Revenue Investigator: : 1965 Requested By: Rodrigo Harrell Order Number: [id number] William MD: Lion Sampson M.D. Measurements Intervals [place] Rate: 78 P: 7 IA: 193 QRS: 66 QRSD: 118 T: -33 QT: 375 QTc: 429 Interpretive Statements SINUS RHYTHM Compared to ECG 12/05/2020 15:30:04 Nonspecific T wave changes First degree AV block no longer present Incomplete right bundle-branch block no longer present Myocardial infarct finding no longer present Electronically Signed On 06-14-2021 20:09:12 POLICE ACADEMY INSTRUCTOR by Lion Sampson M.D. [email or web address]
--- NOTE | 2021-06-14 10:44 | CTR_ITS ---
PROCEDURE INFORMATION: Exam: CT Abdomen And Pelvis With Contrast Exam date and time: 06/14/2021 10:44 AM Age: 56 years old Clinical indication: Abdominal pain; Prior surgery; Surgery date: 1-6 months; Patient HX: HX cancer, pain and fever; Additional info: Abdominal pain, fever, cancer TECHNIQUE: Imaging protocol: Computed tomography of the abdomen and pelvis with contrast. Total images: 233 Radiation optimization: All CT scans at this facility use at least one of these dose optimization techniques: automated exposure control; mA and/or kV adjustment per patient size (includes targeted exams where dose is matched to clinical indication); or iterative reconstruction. Contrast material: VISI 320; Contrast volume: 95 ml; Contrast route: INTRAVENOUS (IV); COMPARISON: CT abdomen pelvis w con* [id number] 05/08/2021 12:04 AM RADIATION DOSE METRICS: Total DLP (mGy-cm): 1452.25 FINDINGS: Tubes, catheters and devices: A gastric feeding tube projects in satisfactory location. Lungs: Lung cyst noted. 11 mm nodule at the left lung base has slightly increased in size. Smaller irregular nodule at the left lung base unchanged. Heart: Coronary stent noted. Mediastinal space: Lower esophageal mass again demonstrated and appears slightly larger compared with prior exam. Diaphragm: A large hiatal hernia is present. Liver: Multiple scattered hypodense liver nodules are again noted and have increased. The confluent mass within the right lobe of the liver now is contiguous with more posterior lesion within the right lobe given an overall measurement of approximately 12.6 x 7.4 cm. Gallbladder and bile ducts: Normal. No calcified stones. No ductal dilation. Pancreas: Normal. No ductal dilation. Spleen: Incidental splenic granulomata are noted. Adrenal glands: Normal. No mass. Kidneys and ureters: Normal. No hydronephrosis. Stomach and bowel: Colonic diverticulosis is present without diverticulitis. Appendix: No evidence of appendicitis. Intraperitoneal space: Unremarkable. No free air. No significant fluid collection. Vasculature: Moderate atherosclerotic disease is evident. Incidental phleboliths noted. Lymph nodes: Multiple enlarged lower mediastinal and retroperitoneal lymph nodes. The largest are anterior to the abdominal aorta and have increased in size with the largest with a short axis diameter of 17 mm. Urinary bladder: Unremarkable as visualized. Reproductive: Unremarkable as visualized. Bones/joints: There is a nondisplaced fracture involving the right superior pubic rami which appears similar to the prior exam. There is evidence of healing to the inferior pubic rami fracture on the right with some adjacent callus formation noted and fracture plane indistinct. Bridging osteophytes are seen spanning the SI joints bilaterally. Facet joint degenerative changes are present. Multilevel degenerative disc disease is noted with vacuum phenomenon. Osteophytes are noted extending from the vertebrae. No acute spinal pathology is detected. Soft tissues: There is a fat containing left inguinal hernia. CT/CT abdomen pelvis w con* [id number] IMPRESSION: 1. Lower esophageal mass again demonstrated and appears slightly larger compared with prior exam. 2. 11 mm nodule at the left lung base has slightly increased in size. Smaller irregular nodule at the left lung base unchanged. 3. Multiple scattered hypodense liver nodules are again noted and have increased. The confluent mass within the right lobe of the liver now is contiguous with more posterior lesion within the right lobe given an overall measurement of approximately 12.6 x 7.4 cm. 4. Multiple enlarged lower mediastinal and retroperitoneal lymph nodes. The largest are anterior to the abdominal aorta and have increased in size with the largest with a short axis diameter of 17 mm. 5. There is a nondisplaced fracture involving the right superior pubic rami which appears similar to the prior exam. There is evidence of healing to the inferior pubic rami fracture on the right with some adjacent callus formation noted and fracture plane indistinct.
[2021-06-14 10:57] LABS: Basophils % 0.6 %; Eosinophils % 0.2 %; Hematocrit 31.9 % (42.0-52.0); Hemoglobin 9.8 g/dL (11.7-16.6); Lymphocytes # 1.2 10^3/uL (0.8-4.8); Lymphocytes % 24.4 %; Mean Corpuscular HGB Conc 30.7 g/dL (30.0-36.0); Mean Corpuscular Hemoglobin 28.5 pg (28.0-34.0); Mean Corpuscular Volume 92.7 fl (80-94); Mean Platelet Volume 9.4 fL (7.4-10.4); Monocytes # 0.6 10^3/uL (0.2-0.9); Monocytes % 12.6 %; Neutrophils # 2.98 10^3/uL (1.8-7.7); Neutrophils % 60.6 %; Nucleated Red Blood Cells % 0.4 %; Platelet Count 169 10^3/cmm (130-400); Red Blood Count 3.44 10^6/uL (4.1-5.3); Red Cell Distribution Width 17.7 % (12.1-15.1); White Blood Count 4.9 10^3/uL (4.0-10.0)
[2021-06-14 11:11] LABS: Add Urine Microscopic? NO; Charge for UA Resulting for Rev
--- NOTE | 2021-06-14 11:11 | PC.NURSE ---
REPORT GIVEN TO ROSHAN BRADY ASSUMED CARE.
[2021-06-14 11:14] LABS: Troponin(5th) Baseline 21 ng/L (0-15)
[2021-06-14 11:15] LABS: Alanine Aminotransferase 22 U/L (0-41); Albumin Level 3.2 g/dL (3.5-5.2); Alkaline Phosphatase 199 IU/L (40-130); Anion Gap 17.4 (5-19); Aspartate Amino Transferase 27 U/L (0-40); Blood Urea Nitrogen 13 mg/dL (6-20); Calcium 7.6 mg/dL (8.5-10.5); Carbon Dioxide 25 mmol/L (22-29); Chloride 100 mmol/L (98-107); Globulin 2.6 g/dL (1.3-4.6); Glomerular Filtration Rate 68.8 mL/min (90-130); Glucose 87 mg/dL (65-115); Lactic Sepsis W/Reflex 2.3 mmol/L (0.5-2.2); Lipase 13 U/L (13-60); Osmolality Calculated 287 mOsm/kg (285-295); Potassium 3.4 mmol/L (3.5-5.1); Sodium 139 mmol/L (136-145); Total Bilirubin 0.3 mg/dL (0.15-1.2); Total Protein 5.8 g/dL (6.6-8.7)
[2021-06-14 11:22] LABS: Bilirubin Urine Neg (Negative); Blood Urine Neg (Negative); Glucose Urine UA Norm (Normal); Ketones Urine Negative (Negative); Leukocyte Esterase Urine Negative (Negative); Nitrate Urine Negative (Negative); Protein Urine Neg (Negative); Specific Gravity, Urine 1.005 (1.005-1.030); Urine Appearance Clear (CLEAR); Urine Color Yellow (Yellow); Urobilinogen Urine Norm (Negative); pH Urine 7 (5-7)
[2021-06-14 11:32] LABS: Influenza A by IFA Negative (Negative); Influenza B by IFA Negative (Negative); SARS Covid-2 Antigen Negative (Negative)
[2021-06-14 11:38] LABS: Reflex Lactate Order REFLEX LACTIC ORDERD
[2021-06-14] MEDS: iodixanol 320 mg/mL 100mL Btl IV (11:56)
[2021-06-14] MEDS: morphine 4 mg/mL SDV 1 mL IVP (12:05)
--- NOTE | 2021-06-14 12:42 | ECG_ITS ---
[facility] Test Date: 2021-06-14 Pat Name: Maximino Sandoval Department: Room: Gender: Male Foreign Diplomat: : 1965 Requested By: Rodrigo Harrell Order Number: [id number] William MD: Lion Sampson M.D. Measurements Intervals [place] Rate: 92 P: -29 [place]: 183 QRS: 30 QRSD: 92 T: 1 QT: 329 QTc: 409 Interpretive Statements SINUS RHYTHM POSSIBLE INFERIOR MYOCARDIAL INFARCTION , PROBABLY OLD [30 ms Q WAVE IN II/aVF] Compared to ECG 12/05/2020 15:30:04 First degree AV block no longer present Incomplete right bundle-branch block no longer present Myocardial infarct finding still present Electronically Signed On 06-14-2021 20:22:54 QUALITY CONTROL MICROBIOLOGY SUPERVISOR by Lion Sampson M.D. [email or web address] [email or web address] [email or web address] medical [id number] f
[2021-06-14] MEDS: hydrocortisone 100 mg/2 mL SDV IVP (14:10)
[2021-06-14 14:38] LABS: Lactic Acid level (Lactate) 0.8 mmol/L (0.5-2.2)
[2021-06-14] MEDS: cefTRIAXone 1,000 MG in sodium chloride 0.9% (plus) 50 ML 100 MG IV (14:59)
--- NOTE | 2021-06-14 16:42 | ECG_ITS ---
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 Measurements Intervals [place] Rate: 65 P: 21 OH: 212 QRS: 61 QRSD: 120 T: 23 QT: 411 QTc: 430 Interpretive Statements SINUS RHYTHM WITH FIRST DEGREE AV BLOCK INTERPRETATION BASED ON A DEFAULT AGE OF 40 YEARS Compared to ECG 06/14/2021 12:36:44 First degree AV block now present Electronically Signed On 06-14-2021 20:28:58 COMBINATION WORKER by Lion Sampson M.D. [email or web address]/store/[id number] f
[2021-06-14 17:14] LABS: Troponin 5 6HR 18.04 ng/L (0-15)
[2021-06-14 17:15] LABS: Troponin 5 6HR Delta -2.96 ng/L (0-12)
--- NOTE | 2021-06-14 17:18 | PM.HP ---
Providers/Chief Complaint Primary Care Provider: Stephany Villalpando, MATTIE-C Chief Complaint: ABD PAIN, FEEDING TUBE PROBLEMS History of Present Illness Maximino Sandoval is a 56 year old male with past medical history of Invasive adenocarcinoma of esophagus stage 4, T cell large granular leukemia, HTN, HLD, DM, coronary disease s/p pci 3 stents, rheumatoid arthritis presented to the hospital today with complaint of his feeding tube leaking. is present at bedside. They state that the PEG tube has been changed [address] Banks as an outpatient. Last seen was 2 weeks ago. And at that point the PEG tube was changed. It worked for 2 days and then it started leaking again. Patient also had chemotherapy last week. Had a fever at home 100.7. They saw Dr. Ramachandran in the office who advised him to come to the hospital to get admitted for neutropenic fever but patient did not come in. Patient was pancytopenic and absolute neutrophil count was low but white count has improved today and he is no longer neutropenic. They came in today. He has been coughing and having white phlegm but no shortness of breath. Also patient complains of chest pain that has been intermittent and he took 2 nitros that resolved the pain. He does have a history of coronary disease status post PCI with 3 stents 2007, 2008, 2019. They follow Dr. Muñoz is her rigger supervisor outpatient. Unsure when the last echo was. Denies any diarrhea denies constipation denies lower extremity edema. Patient states that he has not been having any other issues at this time apart from the above. Right now he is chest pain-free and has no other complaints. Patient also has a rash around the PEG tube site and a rash peripherally on the abdominal area which he attributes to being allergic to tape. He had a Kotex pad attached to his abdomen due to PEG tube drainage. ED course: When patient first came to the hospital blood pressure 86/50, heart rate 101, WBC 4.9, lactic acid 2.3, chest x-ray negative, CT abdomen pelvis did not show any new findings. Family does state that patient's blood pressure usually is 80s over 50s range and he is not hypotensive today. Patient was also given vancomycin and IV fluids and 1 dose of hydrocortisone 100 mg IV for suspicion of adrenal insufficiency due to low blood pressure. Of note: Patient was recently but it has improved since he was taking Levaquin as an outpatient. He was asked to follow-up with Dr. Ramachandran and to keep taking the Levaquin until the cultures are back. He was also supposed to see Dr. Banks in the clinic but he ended up going back to the hospital for increased drainage. Review of Systems General: Reports: 10 or more systems reviewed and unremarkable except in HPI and below Medications/Allergies Home Medications Medication Instructions Recorded Confirmed Last Taken Type Humulin R Regular U-100 Insuln See Rx Instructions .ROUTE .COMPLEX 12/05/20 06/14/21 3 Months Ago History ~01/29/21 dexamethasone See Rx Instructions .ROUTE .COMPLEX 12/05/20 06/14/21 06/10/21 02:30 History folic acid 1 mg PO DAILY@0830 12/05/20 06/14/21 06/13/21 History lorazepam 0.5 - 1 mg PO TID PRN 12/05/20 06/14/21 06/10/21 06:00 History 1 mg ondansetron HCl 4 mg PO Q8H PRN 12/05/20 06/14/21 1 Day Ago History ~04/30/21 prochlorperazine maleate 10 mg PO Q4H PRN 12/05/20 06/14/21 1 Day Ago History ~04/30/21 nitroglycerin 0.4 mg sublingual See Rx Instructions .ROUTE 02/10/21 06/14/21 1 Year Ago Rx tablet .COMPLEX #25 tablet ~05/01/20 pantoprazole 40 mg PO DAILY 04/13/21 06/14/21 06/13/21 History Wheelchair #1 ea 05/19/21 06/14/21 Unknown Rx lovastatin 20 mg tablet 20 mg PO DAILY@0830 #90 tab 05/23/21 06/14/21 06/14/21 Rx silver sulfadiazine [Silvadene] 1 applic TOPICAL BID PRN #50 g 05/30/21 06/14/21 Unknown Rx metoclopramide HCl 5 mg tablet 5 mg PO TID 30 Days #90 tab 06/01/21 06/14/21 06/13/21 Rx oxycodone 15 mg tablet 30 mg PO Q6H PRN 7 Days #30 tab 06/01/21 06/14/21 06/10/21 06:00 Rx 15 mg amino acids-whey prot conc,iso See Rx Instructions .ROUTE .COMPLEX 06/10/21 06/14/21 Unknown History [Whey Protein] bupropion HCl 150 mg PO QAM 06/10/21 06/14/21 06/13/21 History clonazepam 1 mg PO DAILY PRN 06/10/21 06/14/21 06/10/21 History esomeprazole magnesium 40 mg PO QAM 06/10/21 06/14/21 06/14/21 History glipizide 5 mg PO QAM 06/10/21 06/14/21 06/13/21 History levofloxacin 750 mg PO DAILY 7 Days #7 tab 06/10/21 06/14/21 06/13/21 Rx magnesium 1 tab PO QAM 06/10/21 06/14/21 06/14/21 History nystatin See Rx Instructions .ROUTE .COMPLEX 06/10/21 06/14/21 Unknown History prednisone 20 mg PO QAM 06/10/21 06/14/21 06/13/21 History sertraline [Zoloft] 100 mg PO QAM 06/10/21 06/14/21 06/13/21 History tizanidine 4 mg PO BEDTIME 06/10/21 06/14/21 06/13/21 History Allergies Allergy/AdvReac Type Severity Reaction Status Date / Time lisinopril Allergy Intermediate ADR-Cough Verified 06/10/21 12:24 PFSH Acute PFSH: Medical History Anemia Atypical lymphocytosis Chronic kidney disease COPD (chronic obstructive pulmonary disease) Coronary artery disease Diabetes mellitus Dilutional hyponatremia (~07/2019) Dyslipidemia Esophageal adenocarcinoma Gastro-esophageal reflux disease without esophagitis Generalized anxiety disorder Hypertension Lumbago Myocardial infarct Rheumatoid arthritis Surgical History H/O heart artery stent History of colonoscopy History of endoscopy (04/13/21) 08/14/20 - Esophageal mass Port-A-Cath in place (09/29/20) Status post insertion of percutaneous endoscopic gastrostomy (PEG) tube (11/12/20) Family History Family/Other Cancer Family members in general Diabetes Family members in general Hypothyroid Family members in general Social History Quit status (tobacco): quit date established Second hand smoke exposure: No Smoking risk assessment/counseling performed?: No Alcohol intake: never Desire information about alcohol rehabilitation?: No Counseling given: No Desire information about substance/drug rehabilitation?: No Counseling given: No Caregiver/support person: No Lives independently: Yes Household members: significant other Marital status: Single History of recent travel: No Current gender identity: Male Vitals/I&O/Wt Last Vital Signs Temp 99.5 F 06/14/21 10:25 Pulse 72 06/14/21 15:30 Resp 19 H 06/14/21 15:30 BP 87/52 06/14/21 15:30 Pulse Ox 94 06/14/21 15:01 06/14/21 06/14/21 06/14/21 06:59 14:59 22:59 Intake Total 2120 Balance 2120 Weight last 48 hrs Weight 77.111 kg Physical Exam Narrative: EXAM NARRATIVE: General: Alert oriented x3, patient seen breathing comfortably, chronically ill-appearing, significant other at bedside HEENT: Normocephalic, atraumatic, EOMI, breathing nasal cannula saturating well Cardio: Regular rate rhythm, normal S1-S2, no murmurs rubs gallops, chest pain not reproducible to palpation Respiratory: Good bilateral air entry, no wheezes no rhonchi appreciated GI: Abdomen soft, mildly tender to palpation around PEG site, nondistended, bowel sounds +, urticarial type rash right where tape has been pulled off, PEG seen soaked wet and leaking with evidence of erythematous area right below it. See picture Extremities: Pulses 2+, no edema, no cyanosis Data : 06/14/21 10:44 06/14/21 10:44 Micro: Microbiology 06/14/21 10:46 Blood Culture - Preliminary Blood SPECIMEN COLLECTED 06/14/21 10:46 Blood Culture - Preliminary Blood SPECIMEN COLLECTED A&P Assessment and plan (1) Leaking PEG tube: Status: Acute (2) Cellulitis: Status: Acute (3) Immunocompromised: Status: Acute (4) Esophageal adenocarcinoma: Status: Acute (5) Gastro-esophageal reflux disease without esophagitis: Status: Chronic (6) COPD (chronic obstructive pulmonary disease): Status: Acute (7) Hypertension: Status: Chronic (8) Coronary artery disease: Status: Acute (9) Diabetes mellitus: Status: Chronic Qualifiers: Diabetes mellitus type: type 2 Diabetes mellitus equipment operator intermodal yard insulin use: without equipment operator intermodal yard use Diabetes mellitus complication status: with kidney complications Additional A&P Information #Stage 4 invansive adenocarnicoma with mets to bone #T cell large leukemia #Neutropenic fever secondary to PEg tube site cellulitis #Immunocompromised state - Vanc, zosyn - Gen surgery consult Dr. Banks - He has not been called yet. Please call in AM. - Blood culture, urine culture - Check labs in AM - Has had a cough as well. Will order sputum gram stain - CXR negative -Check procalcitonin #Chest pain, typical - Chest pain free now #CAD S/P PCI stents x3 (2007,2008,2019) #HTN #HLD - Follows Dr. Muñoz as outpatient - Will check echo - Chest pain, will follow troponins, EKG has no ischemic changes - Pt might benefit from stress test #DM - Sliding scale insulin #Rheumatoid arthritis - stable #Depression - Continue home meds Full Code Soft mechanical diet - states can still swallow but on soft foods Will put in for diet consult PT/OT Attestations Medical Necessity Statement*: > 48 hours Coding Level of Care Code Acute Permit Review Assistant for Chg Fwd Diagnoses Leaking PEG tube K94.23 Cellulitis L03.90 Immunocompromised D84.9 Esophageal adenocarcinoma C15.9 Gastro-esophageal reflux disease without esophagitis K21.9 COPD (chronic obstructive pulmonary disease) J44.9 Hypertension I10 Coronary artery disease I25.10 Diabetes mellitus E11.9 Diabetes mellitus type: type 2 Diabetes mellitus nursing home insulin use: without equipment operator intermodal yard use Diabetes mellitus complication status: with kidney complications
[2021-06-14] MEDS: hydrocortisone 100 mg/2 mL SDV 50 MG IVP (17:27)
--- NOTE | 2021-06-14 20:39 | PC.PHAR ---
Vancomycin is dosed at 1000mg IVPB every 12 hours to produce a predicted trough level of 16.24 (population based pharmacokinetic analysis). A trough level has been ordered from the lab to be obtained before the fourth dose to confirm and adjust if needed.
[2021-06-14 20:54] LABS: Procalcitonin 0.27 ng/mL (0-0.5)
[2021-06-14] MEDS: lactated ringers 1,000 ML 75 ML IV (21:03)
[2021-06-14] MEDS: piperacillin-tazobactam 3.375 GM in sodium chloride 0.9% (plus) 50 ML IV (21:04)
[2021-06-14] MEDS: tizanidine 4 mg Tablet PO (21:04)
[2021-06-14] MEDS: docusate sodium 100 mg Capsule PO (21:04)
[2021-06-14] MEDS: heparin 5,000 unit/mL INJ 1 mL 5000 UNIT SUBCUT (21:04)
[2021-06-14] MEDS: oxyCODONE IR 30 mg Tablet PO (21:10)
[2021-06-14 22:33] LABS: Glucose Point of Care 127 mg/dL (70-110)
[2021-06-15] VITALS (9 sets, daily range): BP systolic 64–108; BP diastolic 47–66; PULSE 58–73; RESP 16–18; TEMP 36.4–37; O2SAT 90–96
--- NOTE | 2021-06-15 | USCV_ITS ---
Maximino Sandoval Age: 56 Gender: M : 1965 Exam Date: 06/15/2021 06:10 Ordering Phys: Mamta Dooley MD Technologist: Pamela Sanabria [place]am Location[place] [facility] [place] Indication: CHEST PAIN BP: 64 / 58 HR: 54 Rhythm: Sinus Technical Quality: Adequate MEASUREMENTS (Male / Female) Normal Values 2D ECHO LV Diastolic Diameter PLAX 4.1 cm 4.2 - 5.9 / 3.9 - 5.3 cm LV Systolic Diameter PLAX 2.7 cm LV Chamber Size 3.8 cm IVS Diastolic Thickness 1.2 cm 0.6 - 1.0 / 0.6 - 0.9 cm IVS Systolic Thickness 1.6 cm LVPW Diastolic Thickness 1.5 cm 0.6 - 1.0 / 0.6 - 0.9 cm LVPW Systolic Thickness 1.7 cm RV Chamber Size 3.4 cm LVOT Diameter 2.0 cm LV Ejection Fraction 2D Teich 64.3 % LV Ejection Fraction MOD 2C 33.6 % LV Ejection Fraction 2C AL 30.3 % LA Diameter 3.1 cm LA Width 3.3 cm LA Height 4.1 cm RA Width 3.5 cm RA Height 4.4 cm Aorta at Sinotubular Diameter 2.8 cm M-MODE Aortic Annulus Diameter 4.5 cm LA Ao Ratio MM 0.7 MV E Point Septal Separation 0.6 cm DOPPLER AV Peak Velocity 179.0 cm/s LVOT Peak Velocity 87.0 cm/s AV Area Cont Eq vti 1.6 cm squared AV Area Cont Eq pk 1.5 cm squared MV Area PHT 3.1 cm squared Mitral E to A Ratio 1.6 MV E' Velocity 66.0 cm/s Mitral E to MV E' Ratio 11.8 Mitral E to LV E' Lateral Ratio 10.6 Mitral E to LV E' Septal Ratio 13.5 TR Peak Velocity 237.7 cm/s TR Peak Gradient 22.6 mmHg TR Mean Velocity 182.1 cm/s TR Mean Gradient 14.3 mmHg TR Velocity Time Integral 88.3 cm TV Peak E Velocity 86.0 cm/s Right Atrial Pressure 3.0 mmHg Pulmonary Artery Systolic Pressu 25.6 mmHg PV Peak Velocity 79.0 cm/s RV Acceleration Time 0.1 s RV Ejection Time 0.4 s RV AcT/ET 0.3 FINDINGS Left Ventricle Normal left ventricular size and systolic function, EF 56 %. No regional wall motion abnormalities. Mild left ventricular hypertrophy. Right Ventricle The right ventricle is normal in size and function. Right Atrium The right atrium is normal in size. Left Atrium The left atrium is normal in size. Mitral Valve Mild mitral valve regurgitation. Aortic Valve No gross abnormalities noted Tricuspid Valve Trace tricuspid valve regurgitation. Pulmonic Valve No gross abnormalities noted Pericardium Normal pericardium without effusion. Aorta Normal ascending aorta dimension. CONCLUSIONS Normal left ventricular size and systolic function, EF 56 %. No regional wall motion abnormalities. Mild left ventricular hypertrophy. Mild mitral valve regurgitation. Trace tricuspid valve regurgitation. Normal cardiac chamber sizes. There is no pericardial effusion. There are no intracardiac masses. No previous study is available for comparison. Dr Lion Sampson MD FACC (Electronically Signed) Final Date: 15 June 2021 14:17 S
--- NOTE | 2021-06-15 00:45 | PC.NURSE ---
Patient awake/ watching TV. Rates pain at a 3/10/ declines PRN medication at this time. IV patent/ infusing LR at 75mL/hr. No needs voiced at this time.
[2021-06-15 04:05] LABS: ABG PCO2 35.8 mmHg (35-45); ABG PH Result 7.45 (7.35-7.45); Base Excess ABG 1.2 mmol/L (-2.0-2.0); Blood Gas Allen Test Pos; Blood Gas Operator Identificat Anonymous; Blood Gas Sample Type Arterial; HCO3 ABG 24.9 mmol/L (22-26); PO2 ABG 66.1 mmHg (80.0-100.0)
--- NOTE | 2021-06-15 04:05 | PC.NURSE ---
Patient in bed asleep / no s/s of pain or discomfort
[2021-06-15 04:06] LABS: Blood Gas Sample Site Radial, right; Oxygen Device ROOM AIR
[2021-06-15 04:25] LABS: Basophils % 0.3 %; Hematocrit 22.9 % (42.0-52.0); Hemoglobin 7.1 g/dL (11.7-16.6); Lymphocytes # 0.8 10^3/uL (0.8-4.8); Lymphocytes % 22.6 %; Mean Corpuscular Hemoglobin 29.2 pg (28.0-34.0); Mean Corpuscular Volume 94.2 fl (80-94); Mean Platelet Volume 10.9 fL (7.4-10.4); Monocytes # 0.5 10^3/uL (0.2-0.9); Monocytes % 14.6 %; Neutrophils # 2.12 10^3/uL (1.8-7.7); Neutrophils % 60.8 %; Nucleated Red Blood Cells % 0 %; Platelet Count 143 10^3/cmm (130-400); Red Blood Count 2.43 10^6/uL (4.1-5.3); Red Cell Distribution Width 17.9 % (12.1-15.1); White Blood Count 3.5 10^3/uL (4.0-10.0)
[2021-06-15] MEDS: piperacillin-tazobactam 3.375 GM in sodium chloride 0.9% (plus) 50 ML IV ×3 (04:30→20:49)
[2021-06-15 04:47] LABS: Alanine Aminotransferase 15 U/L (0-41); Albumin Level 2.2 g/dL (3.5-5.2); Alkaline Phosphatase 131 IU/L (40-130); Anion Gap 10.3 (5-19); Aspartate Amino Transferase 19 U/L (0-40); Blood Urea Nitrogen 13 mg/dL (6-20); Calcium 6.7 mg/dL (8.5-10.5); Carbon Dioxide 25 mmol/L (22-29); Chloride 106 mmol/L (98-107); Globulin 2.5 g/dL (1.3-4.6); Glomerular Filtration Rate 99.3 mL/min (90-130); Glucose 118 mg/dL (65-115); Magnesium 1.5 mg/dL (1.7-2.3); Osmolality Calculated 287 mOsm/kg (285-295); Potassium 3.3 mmol/L (3.5-5.1); Sodium 138 mmol/L (136-145); Total Bilirubin 0.2 mg/dL (0.15-1.2); Total Protein 4.7 g/dL (6.6-8.7)
[2021-06-15 04:56] LABS: Slide Review Slide Review Perform
[2021-06-15] MEDS: buPROPion XL (24 HR) 150 mg Tablet PO (06:25)
[2021-06-15] MEDS: sertraline 100 mg Tablet PO (06:26)
[2021-06-15] MEDS: oxyCODONE IR 30 mg Tablet PO ×2 (06:43→18:06)
[2021-06-15 06:59] LABS: Glucose Point of Care 97 mg/dL (70-110)
[2021-06-15] MEDS: pantoprazole 40 mg SDV IVP (08:44)
[2021-06-15] MEDS: lactated ringers 1,000 ML 75 ML IV ×2 (08:44→18:06)
[2021-06-15] MEDS: potassium chloride ER 20 mEq Tablet 40 MEQ PO (09:17)
[2021-06-15] MEDS: folic acid 1 mg Tablet PO (09:18)
[2021-06-15] MEDS: heparin 5,000 unit/mL INJ 1 mL 5000 UNIT SUBCUT (09:18)
[2021-06-15] MEDS: atorvastatin 40 mg Tablet 20 MG PO (09:18)
[2021-06-15] MEDS: docusate sodium 100 mg Capsule PO ×2 (09:18→18:03)
--- NOTE | 2021-06-15 10:03 | PC.CHAP ---
Pastoral Care Encounter/Spiritual Assessment Type of Contact [] Declined studio producer visit [] Patient/Family/Request visit [] Outpatient visit [] Follow-up visit [] Physician referral [] Code/Alert [x] Routine visit [] Staff referral [] Actively dying [] Patient sleeping [] Family support [] [] Out of room [] Palliative care [] [] Receiving care in room [] Pre-surgical visit [] Trauma [] Long length of stay [] ICU visit [] Other: Relational/Emotional Strength [x] Patient feels connected with others/family/visitors/staff [] Distress [] Loneliness/isolation [] Abandonment Spirituality of Patient [x] Person of Holli [] Attends Pentecostal of their Holli [x] Believes in Prayer [] Reads Bible or Hinduism materials [] There are Spiritual issues to be addressed Pole Framer Machine Interventions x] Prayer [x] Active listening [x] Non-anxious presence [x] Spiritual/emotional support [] Crisis/trauma care [x] Spiritual counseling [] Bereavement support [] Provided bereavement packet [] Provided Bible/devotional materials [] Provided toy/stuffed animal, coloring book to patient or family member [] Provided Communion [] Anointing/[place] [] Salvation [x] Completed spiritual assessment [] Other: Impact on Illness or Injury [] Angry [] Fearful [] Anxious [] Often cries [] Exhaustion [] Unable to work [] Unable to attend mandaen [] Unable to walk/stand [] Unable to read [] Unable to drive [] Unable to eat/drink [] Unable to sleep [] Unable to be with family [] Patient intubated [] Other: Summary patient in alot of pain Time spent with patient 10 min
--- NOTE | 2021-06-15 10:52 | PC.NUTR ---
Nutrition note: Case management in room at time of RD visit, so only completed brief interview. Meal preferences obtained and added to dietary information. Will attempt further clarification of tube feeding at follow up visit. Recommend education on safe tube feeding administration prior to discharge given pt apparently receives protein powder, baby food, Ensure, and meds via PEG at home. See full RD assessment for further details.
[2021-06-15 11:54] LABS: Glucose Point of Care 118 mg/dL (70-110)
--- NOTE | 2021-06-15 12:14 | PC.OT ---
OT EVALUATION ORDERS RECEIVED. I DID A BED LEVEL EVALUATION DUE TO HGB: 7.1. PATIENT AND S.O. IN ROOM BOTH STATE THAT THE PATIENT HAS BEEN AMBULATING INDEPENDENTLY TO THE BATHROOM WHILE IN THE HOSPITAL. PATIENT REPORTS BEING ABLE TO PERFORM TOILETING INDEPENDENTLY. ALSO REPORTS BEING ABLE TO PERFORM ALL OTHER ADLS INDEPENDENTLY. NO FURTHER SKILLED OT REQUIRED AT THIS TIME.
[2021-06-15] MEDS: vancomycin 1,000 MG in sodium chloride 0.9% 250 ML 250 MG IV (15:02)
--- NOTE | 2021-06-15 15:02 | PM.PN ---
Subjective Subjective: Interval history: Family requested consult with Dr. Keys, Dr. Banks is not on-call I did speak with Dr. Banks about the skin excoriation and PEG tube who asked me to touch base with the on-call general surgeon, I spoke with Dr. Francois who recommended zinc oxide and DuoDERM, I have updated nurse for the dressing change and barrier treatment Patient is stating that he tries to eat via his mouth to some extent every time he eats there is some leakage around the PEG tube, he does use Ensure and liquid diet through his PEG tube which causes leakage as well ABG showed PO2 66 on room air Vitals/I&O/Wt Last Vital Signs Temp 98.6 F 06/15/21 11:08 Pulse 59 L 06/15/21 11:08 Resp 16 06/15/21 11:08 BP 93/57 06/15/21 11:08 Pulse Ox 94 06/15/21 11:08 06/15/21 06/15/21 06/15/21 06:59 14:59 22:59 Intake Total 530 / 3681 1338.25 / 1338.25 Balance 530 / 3681 1338.25 / 1338.25 Weight last 48 hrs Weight 73.754 kg Weight 73.028 kg Weight 77.111 kg Physical Exam Narrative: EXAM NARRATIVE: Patient laying comfortably in his bed Breakfast tray in front of him He was eating Iranian toast Skin excoriation and nonpurulent cellulitis noted, skin excoriation is worsened around the PEG tube, PEG tube insertion site seems to be showing nonhealing wound Abdomen nontender S1, S2 Clinical looks well-hydrated EOMI, PERRLA Nonfocal neuro exam Patient was put on 2 L nasal cannula Data : 06/15/21 04:05 06/15/21 04:05 Micro: Microbiology 06/14/21 10:46 Blood Culture - Preliminary Blood NEGATIVE TO DATE 06/14/21 10:46 Blood Culture - Preliminary Blood NEGATIVE TO DATE A&P Assessment and plan (1) Neutropenia: Status: Acute (2) Irritation symptom of skin: Status: Acute (3) Leaking PEG tube: Status: Acute (4) Cellulitis: Status: Acute (5) Immunocompromised: Status: Acute (6) Impaired gait and mobility: Status: Acute (7) Esophageal adenocarcinoma: Status: Acute (8) Rheumatoid arthritis: Status: Acute (9) Dysphagia: Status: Acute (10) Lumbago: Status: Acute (11) Gastro-esophageal reflux disease without esophagitis: Status: Chronic Additional A&P Information Cellulitis around PEG tube insertion site Skin excoriation Dr. Francois recommended DuoDERM and zinc oxide Continue broad-spectrum antibiotics Afebrile Dr. 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 Ramachandran Chest pain: No recurrence of chest pain patient did not complain at all on my evaluation today Has history of coronary disease status post PCI stent x3 Acute hypoxia requiring 2 L nasal cannula ABG showed PaO2 66, will check D-dimer, this most likely related to atelectasis, no active signs of pneumonia Diabetes: Sliding scale Rheumatoid arthritis no acute exacerbation Full code Soft mechanical diet DVT prophylaxis: Heparin on hold in anticipation of any intervention related to PEG tube Attestations Medical Necessity Statement*: Continue medical management Time Spent in Patient Care: 16 - 35 minutes Coding Level of Care Code Acute Toll Repairer [employer] for Chg Fwd Diagnoses Neutropenia D70.9 Irritation symptom of skin R23.8 Leaking PEG tube K94.23 Cellulitis L03.90 Immunocompromised D84.9 Impaired gait and mobility R26.89 Esophageal adenocarcinoma C15.9 Rheumatoid arthritis M06.9 Dysphagia R13.10 Lumbago M54.5 Gastro-esophageal reflux disease without esophagitis K21.9
[2021-06-15] MEDS: lactated ringers 500 ML 999 ML IV (16:19)
[2021-06-15 17:37] LABS: Hematocrit 27.3 % (42.0-52.0); Hemoglobin 8.2 g/dL (11.7-16.6)
[2021-06-15 17:43] LABS: Glucose Point of Care 81 mg/dL (70-110)
--- NOTE | 2021-06-15 19:08 | PC.NURSE ---
Shift report recieved from Nolvia MCGOVERN. Patient in bed/awake/ watching TV. Telemetry monitoring present. IV patent infusing LR at 75mL/hr. Dressing to peg site/C/D/I. No needs voiced at this time.
[2021-06-15] MEDS: tizanidine 4 mg Tablet PO (20:49)
[2021-06-15 20:52] LABS: Glucose Point of Care 95 mg/dL (70-110)
--- NOTE | 2021-06-15 21:06 | PC.NURSE ---
Patient rates pain at a PRN mediation at this time.
--- NOTE | 2021-06-15 23:29 | PC.NURSE ---
Patient resting at this time. No s/s of pain or discomfort.
[2021-06-16] VITALS (11 sets, daily range): BP systolic 94–110; BP diastolic 56–74; PULSE 68–94; RESP 16–18; TEMP 36.5–37.3; O2SAT 91–96
--- NOTE | 2021-06-16 00:43 | PC.NURSE ---
Patient in bed/awake. Watching TV. Rates pain at a 08/13/ PRN pain medication at this time.
[2021-06-16] MEDS: vancomycin 1,000 MG in sodium chloride 0.9% 250 ML 250 MG IV ×2 (02:30→14:55)
[2021-06-16] MEDS: piperacillin-tazobactam 3.375 GM in sodium chloride 0.9% (plus) 50 ML IV ×2 (04:42→13:49)
[2021-06-16] MEDS: buPROPion XL (24 HR) 150 mg Tablet PO (04:55)
[2021-06-16] MEDS: sertraline 100 mg Tablet PO (04:55)
[2021-06-16] MEDS: oxyCODONE IR 30 mg Tablet PO ×3 (04:55→20:22)
[2021-06-16 05:07] LABS: ABG PCO2 31.5 mmHg (35-45); Arterial Blood Gas Hematocrit 25.2 % (42-52); Base Excess ABG 1.4 mmol/L (-2.0-2.0); Blood Gas Allen Test Pos; Blood Gas Sample Site Radial, left; Blood Gas Sample Type Arterial; HCO3 ABG 24.5 mmol/L (22-26); Oxygen Device NC; PO2 ABG 69.1 mmHg (80.0-100.0)
[2021-06-16 06:27] LABS: Basophils % 0.2 %; Eosinophils % 0.2 %; Hematocrit 25.9 % (42.0-52.0); Hemoglobin 7.9 g/dL (11.7-16.6); Lymphocytes # 1.3 10^3/uL (0.8-4.8); Lymphocytes % 30.2 %; Mean Corpuscular HGB Conc 30.5 g/dL (30.0-36.0); Mean Corpuscular Hemoglobin 28.7 pg (28.0-34.0); Mean Corpuscular Volume 94.2 fl (80-94); Mean Platelet Volume 10.7 fL (7.4-10.4); Monocytes # 0.6 10^3/uL (0.2-0.9); Monocytes % 12.9 %; Neutrophils # 2.37 10^3/uL (1.8-7.7); Neutrophils % 55.6 %; Nucleated Red Blood Cells % 0 %; Platelet Count 157 10^3/cmm (130-400); Red Blood Count 2.75 10^6/uL (4.1-5.3); Red Cell Distribution Width 17.9 % (12.1-15.1); White Blood Count 4.3 10^3/uL (4.0-10.0)
[2021-06-16 06:44] LABS: D Dimer 5.04 ug/mIFEU (0-0.59)
[2021-06-16 06:48] LABS: Blood Urea Nitrogen 8 mg/dL (6-20); Calcium 6.5 mg/dL (8.5-10.5); Carbon Dioxide 19 mmol/L (22-29); Chloride 109 mmol/L (98-107); Glomerular Filtration Rate 99.3 mL/min (90-130); Glucose 65 mg/dL (65-115); Osmolality Calculated 286 mOsm/kg (285-295); Sodium 140 mmol/L (136-145)
[2021-06-16 06:56] LABS: Glucose Point of Care 66 mg/dL (70-110)
--- NOTE | 2021-06-16 07:40 | USCV_ITS ---
Maximino Sandoval Age: 56 Gender: M : 1965 Exam Date: 06/16/2021 08:06 Ordering Phys: Luciana Bradford MD Technologist: KELLY Exam Location: [facility] [place] Indication: swelling PROCEDURES: Venous duplex imaging was performed in bilateral lower extremities. The following venous structures were evaluated: common femoral vein, profunda vein, proximal portion of the greater saphenous vein, superficial femoral vein, and the popliteal vein. In addition, the posterior tibial and peroneal trunk were evaluated. Serial compression, augmentation maneuvers, and spectral Doppler flow evaluation were performed. FINDINGS: Normal 2-D Doppler and augmentation and compressibility throughout the lower extremity venous structures. Additional imaging through the proximal calf veins also reveals no thrombus. Limited evaluation of the greater saphenous vein is patent with no thrombus.. CONCLUSIONS No evidence of right lower extremity DVT. No evidence of left lower extremity DVT. Burke Cruz MD (Electronically Signed) Final Date: 16 June 2021 16:25 S
[2021-06-16] MEDS: calcium gluconate 0.1 gm/mL 10% SDV 10mL 1 GM IVP (09:39)
[2021-06-16] MEDS: pantoprazole 40 mg SDV IVP (09:39)
[2021-06-16] MEDS: atorvastatin 40 mg Tablet 20 MG PO (09:41)
[2021-06-16] MEDS: docusate sodium 100 mg Capsule PO ×2 (09:41→17:17)
[2021-06-16] MEDS: folic acid 1 mg Tablet PO (09:41)
[2021-06-16] MEDS: ondansetron 4 MG Tablet PO (10:53)
--- NOTE | 2021-06-16 11:15 | PC.NUTR ---
Nutrition note: Attempted to complete more in-depth interview regarding home TF, oral diet, and wt history as unable to do so yesterday, however nurse reported to this RD pt is sick at this time. Interviewing not appropriate per nurse. Continue to recommend education prior to discharge on safe tube feeding usage. Notified Dr. Francois of recommendation. May benefit from RADIOGRAPHER ANGIOGRAM eval. See full RD assessments 06/15/21 and 06/16/21 for further details.
--- NOTE | 2021-06-16 11:51 | P.CONIM_ITS ---
Providers/Reason For Consult Consulting Physician/Specialty*: Cj Francois MD Reason for Consult*: Feeding tube problem Requesting Physician: Dr. Bradford Attending Physician: Luciana Bradford MD Primary Care Provider: DAVID Davies History of Present Illness History of Present Illness Chief Complaint: Issues with feeding tube History of present illness: Mr.Freddie Klaudia Sandoval is a Pleasant 56 year old male With history of esophageal cancer, Subsequently the patient undergone PEG tube back in November [address] Banks and patient had developed gastric leak arround the tubeand subsequently undergone a switch to a GJ tube where it was endoscopically placed back in April 2021.patient continues to have issues with leak around the tube and he was admitted to the hospitalist service for further care.In the ER apparently the patient's GJ was replaced by a G-tube 18 Albanian by the ER physician. Patient undergone a CT scan of the abdomen pelvis that did not show 1. Lower esophageal mass again demonstrated and appears slightly larger compared with prior exam. 2. 11 mm nodule at the left lung base has slightly increased in size. Smaller irregular nodule at the left lung base unchanged. 3. Multiple scattered hypodense liver nodules are again noted and have increased. The confluent mass within the right lobe of the liver now is contiguous with more posterior lesion within the right lobe given an overall measurement of approximately 12.6 x 7.4 cm. 4. Multiple enlarged lower mediastinal and retroperitoneal lymph nodes. The largest are anterior to the abdominal aorta and have increased in size with the largest with a short axis diameter of 17 mm. 5. There is a nondisplaced fracture involving the right superior pubic rami which appears similar to the prior exam. There is evidence of healing to the inferior pubic rami fracture on the right with some adjacent callus formation noted and fracture plane indistinct. General surgery was consulted for further evaluation potential management According to the patient and his spouse his not meeting his calorie count but p.o. intake and he has to be dependent on the G-tube feeds,Also after collecting more inforamtion,that the patient gets full almost all the time and my concern that the patient may have a undiagnosed gastroparesis being a diabetic and he does have delayed gastric emptying which increases the leak around the G-tube. Review of Systems General: Reports: 10 or more systems reviewed and unremarkable except in HPI and below Meds/Allergies Home Medications and Allergies Home Medications Medication Instructions Recorded Confirmed Last Taken Type Humulin R Regular U-100 Insuln See Rx Instructions .ROUTE .COMPLEX 12/05/20 06/14/21 3 Months Ago History ~01/29/21 dexamethasone See Rx Instructions .ROUTE .COMPLEX 12/05/20 06/14/21 06/10/21 02:30 History folic acid 1 mg PO DAILY@0830 12/05/20 06/14/21 06/13/21 History lorazepam 0.5 - 1 mg PO TID PRN 12/05/20 06/14/21 06/10/21 06:00 History 1 mg ondansetron HCl 4 mg PO Q8H PRN 12/05/20 06/14/21 1 Day Ago History ~04/30/21 prochlorperazine maleate 10 mg PO Q4H PRN 12/05/20 06/14/21 1 Day Ago History ~04/30/21 nitroglycerin 0.4 mg sublingual See Rx Instructions .ROUTE 02/10/21 06/14/21 1 Year Ago Rx tablet .COMPLEX #25 tablet ~05/01/20 pantoprazole 40 mg PO DAILY 04/13/21 06/14/21 06/13/21 History Wheelchair #1 ea 05/19/21 06/14/21 Unknown Rx lovastatin 20 mg tablet 20 mg PO DAILY@0830 #90 tab 05/23/21 06/14/21 06/14/21 Rx silver sulfadiazine [Silvadene] 1 applic TOPICAL BID PRN #50 g 05/30/21 06/14/21 Unknown Rx metoclopramide HCl 5 mg tablet 5 mg PO TID 30 Days #90 tab 06/01/21 06/14/21 06/13/21 Rx oxycodone 15 mg tablet 30 mg PO Q6H PRN 7 Days #30 tab 06/01/21 06/14/21 06/10/21 06:00 Rx 15 mg amino acids-whey prot conc,iso See Rx Instructions .ROUTE .COMPLEX 06/10/21 06/14/21 Unknown History [Whey Protein] bupropion HCl 150 mg PO QAM 06/10/21 06/14/21 06/13/21 History clonazepam 1 mg PO DAILY PRN 06/10/21 06/14/21 06/10/21 History esomeprazole magnesium 40 mg PO QAM 06/10/21 06/14/21 06/14/21 History glipizide 5 mg PO QAM 06/10/21 06/14/21 06/13/21 History levofloxacin 750 mg PO DAILY 7 Days #7 tab 06/10/21 06/14/21 06/13/21 Rx magnesium 1 tab PO QAM 06/10/21 06/14/21 06/14/21 History nystatin See Rx Instructions .ROUTE .COMPLEX 06/10/21 06/14/21 Unknown History prednisone 20 mg PO QAM 06/10/21 06/14/21 06/13/21 History sertraline [Zoloft] 100 mg PO QAM 06/10/21 06/14/21 06/13/21 History tizanidine 4 mg PO BEDTIME 06/10/21 06/14/21 06/13/21 History Allergies Allergy/AdvReac Type Severity Reaction Status Date / Time lisinopril Allergy Intermediate ADR-Cough Verified 06/16/21 16:04 Current Medications Current Medications Generic Name Dose Route Start Last Admin Trade Name Freq PRN Reason Stop Dose Admin Atorvastatin Calcium 20 mg 06/15/21 08:30 06/16/21 09:41 Atorvastatin 40 Mg Tablet PO 20 mg DAILY@0830 DANIEL Administration Bupropion HCl 150 mg 06/15/21 06:00 06/16/21 04:55 Bupropion Xl (24 Hr) 150 Mg Tablet PO 150 mg QAM DANIEL Administration Docusate Sodium 100 mg 06/14/21 20:21 06/16/21 09:41 Docusate Sodium 100 Mg Capsule PO 100 mg BID DANIEL Administration Folic Acid 1 mg 06/15/21 08:30 06/16/21 09:41 Folic Acid 1 Mg Tablet PO 1 mg DAILY@0830 DANIEL Administration Heparin Sodium (Porcine) 5,000 unit 06/14/21 20:21 06/15/21 09:18 Heparin 5,000 Unit/Ml Inj 1 Ml SUBCUT 5,000 unit Q12H DANIEL Administration Lactated Ringer's 1,000 mls @ 75 mls/hr 06/14/21 20:21 06/15/21 18:06 Lactated Ringers IV 75 mls/hr .[id number] DANIEL Administration Piperacillin Sod/Tazobactam 50 mls @ 12.5 mls/hr 06/14/21 20:21 06/16/21 09:03 Sod 3.375 gm/ Sodium Chloride IV Infused Q8H DANIEL Infusion Protocol As Directed Vancomycin HCl 1,000 mg/ 250 mls @ 250 mls/hr 06/15/21 14:00 06/16/21 09:03 Sodium Chloride IV Infused Q12H DANIEL Infusion Protocol As Directed Insulin Human Lispro 0 unit 06/15/21 08:00 06/16/21 10:00 Insulin Lispro 100 Unit/1 Ml SUBCUT Not Given TIDWM DANIEL Protocol Ondansetron HCl 4 mg 06/14/21 20:21 06/16/21 10:53 Ondansetron 4 Mg Tablet PO 4 mg Q8H PRN Administration NAUSEA/VOMITING Oxycodone HCl 30 mg 06/14/21 20:21 06/16/21 10:52 Oxycodone Ir 30 Mg Tablet PO 30 mg Q6H PRN Administration Pain - metastatic cancer Pantoprazole Sodium 40 mg 06/15/21 09:00 06/16/21 09:39 Pantoprazole 40 Mg Sdv IVP 40 mg DAILY DANIEL Administration Sertraline HCl 100 mg 06/15/21 06:00 06/16/21 04:55 Sertraline 100 Mg Tablet PO 100 mg QAM DANIEL Administration Tizanidine HCl 4 mg 06/14/21 21:00 06/15/21 20:49 Tizanidine 4 Mg Tablet PO 4 mg BEDTIME DANIEL Administration Zinc Oxide 1 applic 06/15/21 11:44 06/15/21 15:19 Zinc Oxide Oint 60 Gm TOPICAL 1 applic PRN PRN Administration SKIN PROTECTANT PFSH Acute PFSH: Medical History 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 Anemia Atypical lymphocytosis Chronic kidney disease COPD (chronic obstructive pulmonary disease) Coronary artery disease Diabetes mellitus Dilutional hyponatremia (~07/2019) Dyslipidemia Esophageal adenocarcinoma Gastro-esophageal reflux disease without esophagitis Generalized anxiety disorder Hypertension Lumbago Myocardial infarct Rheumatoid arthritis Surgical History H/O heart artery stent History of colonoscopy History of endoscopy (04/13/21) 08/14/20 - Esophageal mass Port-A-Cath in place (09/29/20) Status post insertion of percutaneous endoscopic gastrostomy (PEG) tube (11/12/20) Family History Family/Other Cancer Family members in general Diabetes Family members in general Hypothyroid Family members in general Social History Quit status (tobacco): quit date established Second hand smoke exposure: No Smoking risk assessment/counseling performed?: No Alcohol intake: never Desire information about alcohol rehabilitation?: No Counseling given: No Desire information about substance/drug rehabilitation?: No Counseling given: No Caregiver/support person: No Lives independently: Yes Household members: significant other Marital status: Single History of recent travel: No Current gender identity: Male Vitals/I&O/Wt Last Vital Signs Temp 98.3 F 06/16/21 11:08 Pulse 94 06/16/21 11:08 Resp 18 06/16/21 11:08 BP 110/74 06/16/21 11:08 Pulse Ox 96 06/16/21 11:08 06/15/21 06/16/21 06/16/21 22:59 06:59 14:59 Intake Total 1502.5 / 2840.75 290 / 3130.75 300 / 300 Output Total 300 / 300 380 / 680 Balance 1202.5 / 2540.75 -90 / 2450.75 300 / 300 Weight last 48 hrs Weight 162 lb 9.6 oz Weight 161 lb Physical Exam Const: COMMON NORMALS: no acute distress and patient oriented x3 GENERAL APPEARANCE: cooperative ORIENTATION/CONSCIOUSNESS: Yes awake, Yes oriented to person, Yes oriented to place and Yes oriented to time HENMT: COMMON NORMALS: normocephalic HEAD & SCALP: normocephalic Eye: COMMON NORMALS: Equal, round and reactive pupils present and no scleral icterus PUPIL: Yes Equal, round and reactive pupils present Lymph: LYMPHATIC: no lymphadenopathy noted Chest: COMMONS NORMALS: normal inspection of the chest Resp: COMMON NORMALS: normal respiratory effort and clear to auscultation bilaterally AUSCULTATION: clear to auscultation bilaterally Cardio: COMMON NORMALS: S1 normal heart sound present and S2 normal heart sound present; negative for No murmurs present (Cardio) HEART SOUNDS: S1 normal heart sound present and S2 normal heart sound present GI: COMMON NORMALS: Soft to palpation; negative for No hepatosplenomegaly present INSPECTION: Yes normal to inspection and Yes GI tube present (Gastric contents leaking around the G-tube with excessive excoriation) PALPATION: Yes Soft to palpation, No Firmness to palpation present (GI), No Tenderness to palpation present (GI), No Guarding due to palpation present (GI), No Rigid due to palpation and No No hepatosplenomegaly present Neuro: COMMON NORMALS: patient oriented x3 SENSORIUM/ORIENTATION: Yes oriented to person, Yes oriented to place and Yes oriented to time Psych: COMMON NORMALS: mental status grossly normal Skin: COMMON NORMALS: no rashes or lesions noted GENERAL SKIN EXAM: no rashes or lesions noted Data Micro: Micro: Microbiology 06/14/21 10:46 Blood Culture - Pr eliminary Blood NEGATIVE TO CHALO E 06/14/21 10:46 Blood Culture - Pr eliminary Blood NEGATIVE TO CHALO E A&P Assessment and plan (1) Leaking PEG tube: After thorough history physical examination and reviewing the charts and images of the CT scan with my personal interpretation. Likely V patient has an underlying gastroparesis being diabetic. Obviously metoclopramide should not be given for long-term due to the extrapyramidal side effects. My recommendations at this point is to proceed by switching the G-tube to Hany button in place and application of ostomy bag around it for skin protection. An underlying zinc oxide cream should be placed for skin irritation. I did educate the patient about the importance to space out his meals and have a smaller volume each time. Thank you for consulting general surgery to participate taking care Status: Acute Consult Attestations Medical Necessity Statement: Per admitting service Time Spent in Patient Care: (>than 50% of time spent in counselling and/or direct pt care on unit) . Coding Level of Care Code Acute Java Security Engineer for Chg Fwd Exam Comprehensive Diagnoses Leaking PEG tube K94.23
[2021-06-16 12:11] LABS: Glucose Point of Care 78 mg/dL (70-110)
[2021-06-16] MEDS: lactated ringers 1,000 ML 75 ML IV (14:24)
[2021-06-16 14:29] LABS: Vancomycin Random 15.4 ug/mL (20.0-40.0)
--- NOTE | 2021-06-16 16:35 | PM.PN ---
Subjective Subjective: Interval history: PEG tube persistent leakage, requested Dr. Francois to help us with further recommendations Vitals/I&O/Wt Last Vital Signs Temp 99.1 F 06/16/21 15:23 Pulse 84 06/16/21 15:23 Resp 16 06/16/21 15:23 BP 101/66 06/16/21 15:23 Pulse Ox 92 06/16/21 15:23 06/16/21 06/16/21 06/16/21 06:59 14:59 22:59 Intake Total 290 / 3130.75 1314.375 / 1314.375 Output Total 380 / 680 Balance -90 / 2450.75 1314.375 / 1314.375 Weight last 48 hrs Weight 73.754 kg Weight 73.028 kg Physical Exam Narrative: EXAM NARRATIVE: Patient lying comfortably in his bed Persistent leakage noted around the PEG tube Excoriation of skin with cellulitis Nonpurulent cellulitis S1, S2 Clinically well hydrated EOMI, PERRLA Nonfocal neuro exam Multiple skin tattoos Saturating well on room air Lower extremity no edema Data : 06/16/21 05:50 06/16/21 05:50 Micro: Microbiology 06/14/21 10:46 Blood Culture - Preliminary Blood NEGATIVE TO DATE 06/14/21 10:46 Blood Culture - Preliminary Blood NEGATIVE TO DATE A&P Assessment and plan (1) Neutropenia: Status: Acute (2) Irritation symptom of skin: Status: Acute (3) Leaking PEG tube: Status: Acute (4) Cellulitis: Status: Acute (5) Immunocompromised: Status: Acute (6) Impaired gait and mobility: Status: Acute (7) Esophageal adenocarcinoma: Status: Acute (8) Rheumatoid arthritis: Status: Acute (9) Dysphagia: Status: Acute Additional A&P Information Nonpurulent cellulitis around PEG tube Switch antibiotics to doxycycline Topical antibiotics DuoDERM and zinc oxide Leaking PEG tube: Dr. Francois recommended Hany button with the ostomy bag If leakage stops by tomorrow plan to discharge him home Neutropenia: Resolved Anemia repeat H&H showed stable hemoglobin did not require blood transfusion Saturating well on room air high D-dimer related to cancer Hypokalemia: Repleted Acute hypoxia: Resolved doing well on room air X-ray showing atelectasis Diabetes related gastroparesis Full code Soft mechanical diet DVT prophylaxis: Heparin to be initiated, as there is no plan for surgical intervention Attestations Medical Necessity Statement*: Plan to discharge tomorrow if stable and cleared by general surgery Time Spent in Patient Care: 16 - 35 minutes Coding Level of Care Code Acute Travograph Operator for Chg Fwd Diagnoses Neutropenia D70.9 Irritation symptom of skin R23.8 Leaking PEG tube K94.23 Cellulitis L03.90 Immunocompromised D84.9 Impaired gait and mobility R26.89 Esophageal adenocarcinoma C15.9 Rheumatoid arthritis M06.9 Dysphagia R13.10
[2021-06-16 17:00] LABS: Glucose Point of Care 88 mg/dL (70-110)
[2021-06-16] MEDS: doxycycline 100 mg Tablet PO (17:17)
[2021-06-16] MEDS: tizanidine 4 mg Tablet PO (20:15)
[2021-06-16] MEDS: heparin 5,000 unit/mL INJ 1 mL 5000 UNIT SUBCUT (20:16)
[2021-06-16 20:56] LABS: Glucose Point of Care 75 mg/dL (70-110)
[2021-06-17] VITALS (12 sets, daily range): BP systolic 89–115; BP diastolic 57–75; PULSE 80–118; RESP 16–18; TEMP 36.6–37.4; O2SAT 90–95
[2021-06-17] MEDS: buPROPion XL (24 HR) 150 mg Tablet PO (05:27)
[2021-06-17] MEDS: sertraline 100 mg Tablet PO (05:27)
[2021-06-17] MEDS: oxyCODONE IR 30 mg Tablet PO ×2 (05:32→11:44)
--- NOTE | 2021-06-17 05:37 | PC.NURSE ---
SHIFT SUMMARY Has had a good night. Says abdomen sure feels better now that the drainage is going into the ostomy bag and not staying on his skin. Skin to left abdomen is excoriated from the drainage he has been having. Have emptied 400ml total drainage from ostomy bag over the PEG tube. Is hoping to go home today. Has been medicated X2 tongiht with prn po Oxycodone IR for c/o back pain
[2021-06-17 06:37] LABS: Blood Urea Nitrogen 6 mg/dL (6-20); Calcium 6.7 mg/dL (8.5-10.5); Carbon Dioxide 19 mmol/L (22-29); Chloride 105 mmol/L (98-107); Glomerular Filtration Rate 86.7 mL/min (90-130); Glucose 59 mg/dL (65-115); Osmolality Calculated 277 mOsm/kg (285-295); Sodium 136 mmol/L (136-145)
[2021-06-17 06:43] LABS: Hematocrit 26.5 % (42.0-52.0); Hemoglobin 8.2 g/dL (11.7-16.6); Mean Corpuscular HGB Conc 30.9 g/dL (30.0-36.0); Mean Corpuscular Hemoglobin 29.1 pg (28.0-34.0); Mean Platelet Volume 11.5 fL (7.4-10.4); Platelet Count 134 10^3/cmm (130-400); Red Blood Count 2.82 10^6/uL (4.1-5.3); White Blood Count 6.1 10^3/uL (4.0-10.0)
[2021-06-17 06:45] LABS: Anion Gap 15.2 (5-19); Potassium 3.2 mmol/L (3.5-5.1)
[2021-06-17 06:49] LABS: Glucose Point of Care 62 mg/dL (70-110)
[2021-06-17 07:15] LABS: Slide Review Slide Review Perform
[2021-06-17 07:19] LABS: Absolute Segmented Neutrophil 3.2 10/cmm (1.6-7.1); Band Neutrophils Absolute 0.9 10^3/cmm (0.0-1.2); Lymphocytes 22 %; Monocytes Absolute 0.7 10^3/cmm (0.1-0.6); Segmented Neutrophils 52 %; Total Cells Counted 100 (0-100)
[2021-06-17 07:20] LABS: Eosinophils 0 %; Lymphocytes Absolute 1.3 10^3/cmm (1.2-3.4); Platelet Estimate Decreased (Normal); Poikilocytosis 1+
[2021-06-17] MEDS: atorvastatin 40 mg Tablet 20 MG PO (08:41)
[2021-06-17] MEDS: heparin 5,000 unit/mL INJ 1 mL 5000 UNIT SUBCUT (08:41)
[2021-06-17] MEDS: doxycycline 100 mg Tablet PO (08:41)
[2021-06-17] MEDS: folic acid 1 mg Tablet PO (08:42)
[2021-06-17] MEDS: docusate sodium 100 mg Capsule PO (08:42)
[2021-06-17] MEDS: pantoprazole 40 mg SDV IVP (08:57)
[2021-06-17] MEDS: ondansetron 4 MG Tablet PO (11:44)
[2021-06-17 12:02] LABS: Glucose Point of Care 85 mg/dL (70-110)
--- NOTE | 2021-06-17 12:04 | PC.SOCIAL ---
IMM Update pg 2 of IMM updated and reviewed w/ patient. Copy provided.
--- NOTE | 2021-06-17 13:03 | P.DS_ITS ---
Discharge Providers Date of Admission: 06/14/21 14:43 Date of Discharge: June 17, 2021 Attending Provider at Admission: Mamta Dooley MD Attending Provider at Discharge: Luciana Bradford MD Primary Care Provider: DAVID Davies Diagnoses at Discharge Discharge Diagnosis (1) Neutropenia: Status: Acute (2) Irritation symptom of skin: Status: Acute (3) Leaking PEG tube: Status: Acute (4) Cellulitis: Status: Acute (5) Immunocompromised: Status: Acute (6) Impaired gait and mobility: Status: Acute (7) Esophageal adenocarcinoma: Status: Acute (8) Rheumatoid arthritis: Status: Acute (9) Dysphagia: Status: Acute Reason for Visit Reason for Visit: ABD PAIN, FEEDING TUBE PROBLEMS Hospital Course Hospital Course History of Present Illness by Dr. Soumya Stanton Klaudia Sandoval is a 56 year old male with past medical history of Invasive adenocarcinoma of esophagus stage 4, T cell large granular leukemia, HTN, HLD, DM, coronary disease s/p pci 3 stents, rheumatoid arthritis presented to the hospital today with complaint of his feeding tube leaking. is present at bedside. They state that the PEG tube has been changed [address] Banks as an outpatient. Last seen was 2 weeks ago. And at that point the PEG tube was changed. It worked for 2 days and then it started leaking again. Patient also had chemotherapy last week. Had a fever at home 100.7. They saw Dr. Ramachandran in the office who advised him to come to the hospital to get admitted for neutropenic fever but patient did not come in. Patient was pancytopenic and absolute neutrophil count was low but white count has improved today and he is no longer neutropenic. They came in today. He has been coughing and having white phlegm but no shortness of breath. Also patient complains of chest pain that has been intermittent and he took 2 nitros that resolved the pain. He does have a history of coronary disease status post PCI with 3 stents 2007, 2008, 2019. 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 Unsure when the last echo was. Denies any diarrhea denies constipation denies lower extremity edema. Patient states that he has not been having any other issues at this time apart from the above. Right now he is chest pain-free and has no other complaints. Patient also has a rash around the PEG tube site and a rash peripherally on the abdominal area which he attributes to being allergic to tape. He had a Kotex pad attached to his abdomen due to PEG tube drainage. ED course: When patient first came to the hospital blood pressure 86/50, heart rate 101, WBC 4.9, lactic acid 2.3, chest x-ray negative, CT abdomen pelvis did not show any new findings. Family does state that patient's blood pressure usually is 80s over 50s range and he is not hypotensive today. Patient was also given vancomycin and IV fluids and 1 dose of hydrocortisone 100 mg IV for suspicion of adrenal insufficiency due to low blood pressure. Of note: Patient was recently but it has improved since he was taking Levaquin as an outpatient. He was asked to follow-up with Dr. Ramachandran and to keep taking the Levaquin until the cultures are back. He was also supposed to see Dr. Banks in the clinic but he ended up going back to the hospital for increased drainage Hospital course Patient was admitted for, neutropenic fever, his neutropenia improved spontaneously, his IB broad spectrum antibiotics were deescalated to doxycycline for MRSA coverage for cellulitis. He developed cellulitis, skin excoriation due to leakage around PEG tube. Dr. Francois was consulted who recommended Adebayo-norman button and outpatient follow-up. Zinc oxide and DuoDERM was also used during hospitalization to create a barrier between the secretions and the skin. Dr. Francois initially used ostomy bag to collect the secretions which significantly improved skin excoriation. During this hospitalization he was requiring 1 to 2 L of oxygen intermittently however no signs of pneumonia on chest imaging, his D- dimer is high secondary to underlying malignancy, no signs of DVT, venous Doppler unremarkable. The day of discharge he is saturating well on room air. PEG tube was exchanged with a Adebayo-norman button 06/17, please see Dr. Francois's note for further details. Stoma supplies were given to the patient. Outpatient follow-up/referral given. Physical Exam Narrative: EXAM NARRATIVE: Patient laying comfortably in his bed Breakfast tray in front of him He was eating [place] toast Skin excoriation and nonpurulent cellulitis noted, skin excoriation is worsened around the PEG tube, PEG tube insertion site seems to be showing nonhealing wound Abdomen nontender S1, S2 Clinical looks well-hydrated EOMI, PERRLA Nonfocal neuro exam Saturating well on room air Discharge Data Data Completed and Pending: Completed Studies During Hospitalization Category Date Time Status CT abdomen pelvis w con* [id number] Urge nt Cat Scan 06/14/21 10:44 Completed XR chest 1V [place] ble [id number] Stat Exams 06/14/21 10:41 [place] [id number] Routin e Ultrasound 06/16/21 07:40 Completed CV. echo complete * [id number] Routine Ultrasound 06/15/21 Completed Pending at discharge Category Date Time Status Blood Culture Sta t Lab 06/14/21 10:46 Results Leukocyte Reduced RBC Routine Lab 06/15/21 10:58 Results Sputum Culture an d Gram Stain Stat Lab 06/15/21 21:00 Results Type and Screen R outine Lab 06/15/21 10:58 Results Urinalysis Stat Lab 06/14/21 17:13 Uncollected Labs from last 24 hours 06/17/21 06/17/21 06/17/21 11:31 06:41 05:39 WBC RBC Hgb Hct MCV MCH MCHC RDW Plt Count MPV Lymph % (Auto) [place] % (Auto) Lymph # (Auto) [place] # (Auto) Total Counted Atypical Lymphs % Absolute Neutrophi ls Segmented Neutroph ils Abs Segm Neuts (Ma n) Band Neutrophils Abs Band Neuts (Ma n) Absolute Lymphocyt es Lymphocytes (Manua l) Monocytes (Manual) Absolute Monocytes Eosinophils (Manua l) Absolute Eosinophi ls Basophils (Manual) Absolute Basophils Platelet Estimate Poikilocytosis Sodium 136 Potassium 3.2 L Chloride 105 Carbon Dioxide 19 L Anion Gap 15.2 BUN 6 Creatinine 0.9 GFR Calculation 86.7 L Glucose 59 L POC Glucose 85 62 L Calculated Osmolal ity 277 L Calcium 6.7 L Random Vancomycin 06/17/21 06/16/21 06/16/21 05:39 20:41 16:35 WBC 6.1 RBC 2.82 L Hgb 8.2 L Hct 26.5 L MCV 94.0 MCH 29.1 MCHC 30.9 RDW 18.0 H Plt Count 134 MPV 11.5 H Lymph % (Auto) Not Reportable [place] % (Auto) Not Reportable Lymph # (Auto) Not Reportable [place] # (Auto) Not Reportable Total Counted 100 Atypical Lymphs % 0.0 Absolute Neutrophi ls 4.0 Segmented Neutroph ils 52 Abs Segm Neuts (Ma n) 3.2 Band Neutrophils 14.0 Abs Band Neuts (Ma n) 0.9 Absolute Lymphocyt es 1.3 Lymphocytes (Manua l) 22 Monocytes (Manual) 12.0 Absolute Monocytes 0.7 H Eosinophils (Manua l) 0 Absolute Eosinophi ls 0.0 Basophils (Manual) 0.0 Absolute Basophils 0.0 Platelet Estimate Decreased Poikilocytosis 1+ H Sodium Potassium Chloride Carbon Dioxide Anion Gap BUN Creatinine GFR Calculation Glucose POC Glucose 75 88 Calculated Osmolal ity Calcium Random Vancomycin 06/16/21 13:10 WBC RBC Hgb Hct MCV MCH MCHC RDW Plt Count MPV Lymph % (Auto) [place] % (Auto) Lymph # (Auto) [place] # (Auto) Total Counted Atypical Lymphs % Absolute Neutrophi ls Segmented Neutroph ils Abs Segm Neuts (Ma n) Band Neutrophils Abs Band Neuts (Ma n) Absolute Lymphocyt es Lymphocytes (Manua l) Monocytes (Manual) Absolute Monocytes Eosinophils (Manua l) Absolute Eosinophi ls Basophils (Manual) Absolute Basophils Platelet Estimate Poikilocytosis Sodium Potassium Chloride Carbon Dioxide Anion Gap BUN Creatinine GFR Calculation Glucose POC Glucose Calculated Osmolal ity Calcium Random Vancomycin 15.4 L Vitals: Last Vital Signs Temp 99.3 F 06/17/21 11:33 Pulse 118 H 06/17/21 11:33 Resp 17 06/17/21 11:44 BP 89/62 06/17/21 11:33 Pulse Ox 94 06/17/21 11:44 Discharge Plan Discharge Patient Disposition: Home Condition: Stable Prescriptions: New doxycycline monohydrate 100 mg capsule 100 mg PO BID 7 Days Qty: 14 RF: 0 zinc oxide 10 % aerosol,spray 1 applic topical TID PRN (Reason: skin irritation) Qty: 100 RF: 1 (DME) Stomahesive Skin Barrier 1 07/05 misc See Rx Instructions .Route Qty: 10 RF: 0 (DME) Ostomy Appliance Belt Misc See Rx Instructions .Route Qty: 1 RF: 0 (DME) ostomy kit Kit See Rx Instructions .Route Qty: 1 RF: 0 zyghnfhejj-njazufroi-wcna vera 500-10 unit-mg/gram ointment 2 g topical TID Qty: 28 RF: 2 Continued (DME) Wheelchair See Rx Instructions .Route .MEDSUPPLY Qty: 1 RF: 0 lovastatin 20 mg tablet 20 mg PO DAILY@0830 Qty: 90 RF: 1 oxycodone 15 mg tablet 30 mg PO Q6H PRN (Reason: Pain - metastatic cancer) 7 Days Qty: 30 RF: 0 metoclopramide HCl [Reglan] 5 mg tablet 5 mg PO TID 30 Days Qty: 90 RF: 2 nitroglycerin 0.4 mg tablet, sublingual See Rx Instructions .ROUTE .COMPLEX Qty: 25 RF: 0 folic acid 1 mg tablet 1 mg PO DAILY@0830 RF: 0 ondansetron HCl 4 mg tablet 4 mg PO Q8H PRN (Reason: NAUSEA/VOMITING) RF: 0 prochlorperazine maleate 10 mg tablet 10 mg PO Q4H PRN (Reason: NAUSEA/VOMITING) RF: 0 dexamethasone 4 mg tablet See Rx Instructions .ROUTE .COMPLEX RF: 0 Humulin R Regular U-100 Insuln 100 unit/mL solution See Rx Instructions .ROUTE .COMPLEX RF: 0 lorazepam 1 mg tablet 0.5 - 1 mg PO TID PRN (Reason: Anxiety) RF: 0 pantoprazole 40 mg tablet,delayed release (DR/EC) 40 mg PO DAILY RF: 0 silver sulfadiazine [Silvadene] 1 % cream 1 applic topical BID PRN (Reason: wound healing) Qty: 50 RF: 0 prednisone 20 mg tablet 20 mg PO QAM RF: 0 clonazepam 1 mg tablet 1 mg PO DAILY PRN (Reason: Anxiety) RF: 0 esomeprazole magnesium 40 mg capsule,delayed release(DR/EC) 40 mg PO QAM RF: 0 amino acids-whey prot conc,iso 20 gram-110 kcal/28 gram Powder See Rx Instructions .ROUTE .COMPLEX RF: 0 magnesium 1 tab PO QAM RF: 0 sertraline [Zoloft] 100 mg tablet 100 mg PO QAM RF: 0 glipizide 5 mg tablet extended release 24hr 5 mg PO QAM RF: 0 nystatin 100,000 unit/gram cream See Rx Instructions .ROUTE .COMPLEX RF: 0 bupropion HCl 150 mg tablet extended release 24 hr 150 mg PO QAM RF: 0 tizanidine 4 mg capsule 4 mg PO BEDTIME RF: 0 levofloxacin 750 mg tablet 750 mg PO DAILY 7 Days Qty: 7 RF: 0 Discharge Orders: Discharge Order (Routine); Ordered 06/17/21 Ordered By: Luciana Bradford Referrals: [facility] ([facility]) [Outside] Cj Francois MD [Physician] - 07/08/21 10:00 am Stephany Villalpando FNP-C [Primary Care Provider] - 06/25/21 1:20 pm Discharge Diet: Soft Mechanical and Resume prior tube feeds Discharge Activity: Increase activity as tolerated Patient Instructions: Doxycycline (By mouth), Zinc Oxide (On the skin), Opioid Safety Activity Restrictions/Additional Instructions: 1-nutrition optimization, please follow guidance of family protection specialist's recommendations 2-peristoma care in the form of application of zinc oxide cream on daily basis or as needed followed by ostomy appliance around the Hany button 3-management of medical comorbidities per primary care provider 4-follow-up with medical oncology as scheduled 5-assurance and education Ostomy supply kit size: 1 3/4 Change ostomy bag and wafer every other day or as needed. Discharge Attestations Time Spent in Discharge Care*: less than 30 min Status at Discharge: Cognitive status at discharge: cognitively intact , Behavioral status at discharge: cooperative , Quality Metrics Clinical Quality Measures During this hospital stay, did patient experience: None Coding Level of Care Code Acute Chg FW DC note Diagnoses Neutropenia D70.9 Irritation symptom of skin R23.8 Leaking PEG tube K94.23 Cellulitis L03.90 Immunocompromised D84.9 Impaired gait and mobility R26.89 Esophageal adenocarcinoma C15.9 Rheumatoid arthritis M06.9 Dysphagia R13.10
--- NOTE | 2021-06-17 14:56 | PM.PN ---
Subjective Subjective: Interval history: Patient already had stoma bag placed yesterday by the nursing staff and feels better Medications: Reviewed: Yes Vitals/I&O/Wt Last Vital Signs Temp 99.3 F 06/17/21 11:33 Pulse 118 H 06/17/21 11:33 Resp 17 06/17/21 11:44 BP 89/62 06/17/21 11:33 Pulse Ox 95 06/17/21 14:34 06/16/21 06/17/21 06/17/21 22:59 06:59 14:59 Intake Total 841.458 / 2875.833 480 / 3355.833 720 / 720 Output Total 1415 / 1415 Balance 841.458 / 2875.833 -935 / 1940.833 720 / 720 Weight last 48 hrs Weight 161 lb 8 oz Physical Exam Narrative: EXAM NARRATIVE: Patient is conscious alert oriented X3 BMI 23.8 Abdomen nontender nondistended soft no organomegaly guarding or rigidity/no signs of peritonitis PEG tube in place/stoma bag containing the leak overall skin looks better Data : 06/17/21 05:39 06/17/21 05:39 Micro: Microbiology 06/15/21 21:00 Gram Stain - Final Sputum - Expectorated Sputum Sputum Culture - Preliminary A&P Assessment and plan (1) Leaking PEG tube: Gastrosotomy Tube exchange to Hany button Procedure note Preprocedure diagnosis Feeding tube issues Postprocedure diagnosis the same Procedure exchange of gastrostomy feeding tube to a Hany button 20 Mongolian 4.5 cm At this point the 18 Mongolian G-tube balloon was deflated, was taken out without difficulty from the gastrostomy site, a new 20 Mongolian Hany button was available for exchange,it was well lubricated and the balloon was already tested. Was inserted without difficulty and the balloon was inflated up to 6 mL with sterile water and Gastric contents were coming out via the gastrostomy hubb, indicating that the tube in appropriate position. Stoma appliance Patient tolerated the procedure well and was discharged home. I was present for the whole entire procedure Estimated blood loss 0 No specimen Nursing staff assisting Sania Brochures were given to the patient and his spouse for education and instructions Please see nutrition recommendations Thank you for consulting general surgery to participate taking care Status: Acute Attestations Medical Necessity Statement*: Per admitting service Time Spent in Patient Care: 16 - 35 minutes (>than 50% of time spent in counselling and/or direct pt care on unit). Coding Level of Care Code Acute Fan Installer for Chg Fwd Diagnoses Leaking PEG tube K94.23
== END 2021-06-17 16:55 | disposition home or self-care (01) ==
LOC: ER 14:42 → MEDSURG 18:48
PROVIDERS: Admitting Provider Internal Medicine; Emergency Provider Emergency Medicine; PCP Nurse Practitioner; Visit Provider Internal Medicine
DX: K94.23 Gastrostomy malfunction (principal); D84.9 Immunodeficiency, unspecified; C15.9 Malignant neoplasm of esophagus, unspecified; K21.9 Gastro-esophageal reflux disease without esophagitis; J44.9 Chronic obstructive pulmonary disease, unspecified; I12.9 Hypertensive chronic kidney disease with stage 1 through stage 4 chronic kidney disease, or unspecified chronic kidney disease; E11.22 Type 2 diabetes mellitus with diabetic chronic kidney disease; N18.9 Chronic kidney disease, unspecified; E78.5 Hyperlipidemia, unspecified; I25.10 Atherosclerotic heart disease of native coronary artery without angina pectoris; D70.9 Neutropenia, unspecified; R23.8 Other skin changes; R26.89 Other abnormalities of gait and mobility; M06.9 Rheumatoid arthritis, unspecified; I25.2 Old myocardial infarction; Z79.4 Long term (current) use of insulin; Z79.84 Long term (current) use of oral hypoglycemic drugs; M79.89 Other specified soft tissue disorders
CPT/HCPCS: 36415; 36416; 36600; 71045; 74177; 80048; 80053; 80202; 81003; 82803; 82962; 83605; 83690; 83735; 84145; 84484; 85007; 85014; 85018; 85025; 85378; 86850; 86900; 86920; 87040; 87070; 87106; 87205; 87426; 87804; 93005; 93306; 93970; 94664; 96365; 96372; 96375; 96376; 99285; C9113; G0378; J0610; J0696; J1644; J1720; J2270; J2543; J3370; J3475; J7030; J7040; J7050; Q0162; Q9967

== ENCOUNTER 2021-06-22 10:50 | Emergency (ER) | payer MEDICARE, SELFPAY ==
[2021-06-22 11:08] VITALS: BP 88/58; PULSE 57; RESP 17; TEMP 36.6; O2SAT 98; BMI 23.6
--- NOTE | 2021-06-22 11:20 | ED_ITS ---
HPI - Abdominal Pain General: Chief Complaint: General Medical Stated Complaint: Not eating peg 2 needing checked Time Seen by Provider: 06/22/21 11:20 Source: patient Mode of arrival: wheelchair Limitations: no limitations History of Present Illness: HPI narrative: Patient is a 56-year-old male who presents to ED today with a complaint of abdominal pain and feeding tube leakag e. Patient states he was recently admitted to the hospital and they changed his G-tube for a Abbie button. Patient states he continues to have leaking around his stoma site. He is complaining of abdominal pain. [facility] ED PFSH: Medical History 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 Anemia Atypical lymphocytosis Chronic kidney disease COPD (chronic obstructive pulmonary disease) Coronary artery disease Diabetes mellitus Dilutional hyponatremia (~07/2019) Dyslipidemia Esophageal adenocarcinoma Gastro-esophageal reflux disease without esophagitis Generalized anxiety disorder Hypertension Lumbago Myocardial infarct Rheumatoid arthritis Surgical History H/O heart artery stent History of colonoscopy History of endoscopy (04/13/21) 08/14/20 - Esophageal mass Port-A-Cath in place (09/29/20) Status post insertion of percutaneous endoscopic gastrostomy (PEG) tube (11/12/20) Family History Family/Other Cancer Family members in general Diabetes Family members in general Hypothyroid Family members in general Social History Quit status (tobacco): quit date established Second hand smoke exposure: No Smoking risk assessment/counseling performed?: No Alcohol intake: never Desire information about alcohol rehabilitation?: No Counseling given: No Desire information about substance/drug rehabilitation?: No Counseling given: No Caregiver/support person: No Lives independently: Yes Household members: significant other Marital status: Single History of recent travel: No Current gender identity: Male Physical Exam Const: COMMON NORMALS: no limitations and alert GENERAL APPEARANCE: cooperative and comfortable GI: PALPATION: Yes Tenderness to palpation present (GI) OTHER: abbie button in place with bag over site; skin irritation but no obvious maceration/break down present Neuro: SENSORIUM/ORIENTATION: Yes alert Course Vital Signs: Vital signs: Vital Signs Temperature 98 F 06/22/21 11:08 Pulse Rate 57 L 06/22/21 11:08 Respiratory Rate 17 06/22/21 11:08 Blood Pressure 88/58 06/22/21 11:08 Pulse Oximetry 98 06/22/21 11:08 MDM - Abdominal Pain MDM Narrative: Medical decision making narrative: Brief history and physical exam was performed as part of the triage process. Due to current ED wait time patient will be placed in waiting room until a room becomes available. Explained to patient he/she will be seen in order of severity. Patient is currently safe to wait in the waiting room until we can get them placed. Patient informed that if condition worsens at any time to please let the front facer know. Patient apparently left/eloped from [facility]. I did not see patient leave or get a chance to speak to him before he left. Lab Data: Labs: Lab Results 06/22/21 06/22/21 12:09 12:09 WBC 8.2 10^3/uL 10^3/ uL (4.0-10.0) RBC 4.00 10^6/uL L 10 ^6/uL (4.1-5.3) Hgb 13.0 g/dL g/dL (11.7-16.6) Hct 37.1 % L % (42.0-52.0) MCV 92.8 fl fl (80-94) MCH 32.5 pg pg (28.0-34.0) MCHC 35.0 g/dL g/dL (30.0-36.0) RDW 14.0 % % (12.1-15.1) Plt Count 122 10^3/cmm L 10 ^3/cmm (130-400) MPV 9.8 fL fL (7.4-10.4) Neut % (Auto) 88.3 % % Lymph % (Auto) 6.2 % % [place] % (Auto) 5.0 % % Eos % (Auto) 0.1 % % Baso % (Auto) 0.2 % % Neut # (Auto) 7.23 10^3/uL 10^3 /uL (1.8-7.7) Lymph # (Auto) 0.5 10^3/uL L 10^ 3/uL (0.8-4.8) [place] # (Auto) 0.4 10^3/uL 10^3/ uL (0.2-0.9) Eos # (Auto) 0.0 10^3/uL 10^3/ uL (0.0-0.8) Baso # (Auto) 0.0 10^3/uL 10^3/ uL (0.0-0.1) Nucleated RBC % (a uto) 0 % % Nucleated RBCs # 0.0 /100WBC /100W BC Sodium 129 mmol/L L mmol /L (136-145) Potassium 3.3 mmol/L L mmol /L (3.5-5.1) Chloride 89 mmol/L L mmol/ L (98-107) Carbon Dioxide 25 mmol/L mmol/L (22-29) Anion Gap 18.3 (5-19) BUN 8 mg/dL mg/dL (6-20) Creatinine 0.4 mg/dL L mg/dL (0.7-1.2) GFR Calculation 220.9 mL/min H mL /min (90-130) Glucose 92 mg/dL mg/dL (65-115) Calculated Osmolal ity 266 mOsm/kg L mOs m/kg (285-295) Calcium 8.9 mg/dL mg/dL (8.5-10.5) Total Bilirubin 0.8 mg/dL mg/dL (0.15-1.2) AST 13 U/L U/L (0-40) ALT 8 U/L U/L (0-41) Alkaline Phosphata se 65 IU/L IU/L (40-130) Total Protein 7.1 g/dL g/dL (6.6-8.7) Albumin 4.0 g/dL g/dL (3.5-5.2) Globulin 3.1 g/dL g/dL (1.3-4.6) Discharge Plan Discharge Patient Disposition: Left Against Medical Advice Prescriptions: No Action (DME) Wheelchair See Rx Instructions .Route .MEDSUPPLY Qty: 1 RF: 0 lovastatin 20 mg tablet 20 mg PO DAILY@0830 Qty: 90 RF: 1 oxycodone 15 mg tablet 30 mg PO Q6H PRN (Reason: Pain - metastatic cancer) 7 Days Qty: 30 RF: 0 metoclopramide HCl [Reglan] 5 mg tablet 5 mg PO TID 30 Days Qty: 90 RF: 2 nitroglycerin 0.4 mg tablet, sublingual See Rx Instructions .ROUTE .COMPLEX Qty: 25 RF: 0 folic acid 1 mg tablet 1 mg PO DAILY@0830 RF: 0 ondansetron HCl 4 mg tablet 4 mg PO Q8H PRN (Reason: NAUSEA/VOMITING) RF: 0 prochlorperazine maleate 10 mg tablet 10 mg PO Q4H PRN (Reason: NAUSEA/VOMITING) RF: 0 dexamethasone 4 mg tablet See Rx Instructions .ROUTE .COMPLEX RF: 0 Humulin R Regular U-100 Insuln 100 unit/mL solution See Rx Instructions .ROUTE .COMPLEX RF: 0 lorazepam 1 mg tablet 0.5 - 1 mg PO TID PRN (Reason: Anxiety) RF: 0 pantoprazole 40 mg tablet,delayed release (DR/EC) 40 mg PO DAILY RF: 0 silver sulfadiazine [Silvadene] 1 % cream 1 applic topical BID PRN (Reason: wound healing) Qty: 50 RF: 0 prednisone 20 mg tablet 20 mg PO QAM RF: 0 clonazepam 1 mg tablet 1 mg PO DAILY PRN (Reason: Anxiety) RF: 0 esomeprazole magnesium 40 mg capsule,delayed release(DR/EC) 40 mg PO QAM RF: 0 amino acids-whey prot conc,iso 20 gram-110 kcal/28 gram Powder See Rx Instructions .ROUTE .COMPLEX RF: 0 magnesium 1 tab PO QAM RF: 0 sertraline [Zoloft] 100 mg tablet 100 mg PO QAM RF: 0 glipizide 5 mg tablet extended release 24hr 5 mg PO QAM RF: 0 nystatin 100,000 unit/gram cream See Rx Instructions .ROUTE .COMPLEX RF: 0 bupropion HCl 150 mg tablet extended release 24 hr 150 mg PO QAM RF: 0 tizanidine 4 mg capsule 4 mg PO BEDTIME RF: 0 doxycycline monohydrate 100 mg capsule 100 mg PO BID 7 Days Qty: 14 RF: 0 zinc oxide 10 % aerosol,spray 1 applic topical TID PRN (Reason: skin irritation) Qty: 100 RF: 1 (DME) Stomahesive Skin Barrier 1 1/2 misc See Rx Instructions .Route Qty: 10 RF: 0 (DME) Ostomy Appliance Belt Misc See Rx Instructions .Route Qty: 1 RF: 0 (DME) ostomy kit Kit See Rx Instructions .Route Qty: 1 RF: 0 pdybrrrewh-atawihdyh-oses vera 500-10 unit-mg/gram ointment 2 g topical TID Qty: 28 RF: 2 Referrals: Stephany Villalpando FNP-C [Primary Care Provider] - Coding Level of Care Code ED Guard Dance Hall for Chg Fwd Exam Expanded Problem Focused
[2021-06-22 12:21] LABS: Basophils % 0.2 %; Eosinophils % 0.1 %; Hematocrit 37.1 % (42.0-52.0); Lymphocytes # 0.5 10^3/uL (0.8-4.8); Lymphocytes % 6.2 %; Mean Corpuscular Hemoglobin 32.5 pg (28.0-34.0); Mean Corpuscular Volume 92.8 fl (80-94); Mean Platelet Volume 9.8 fL (7.4-10.4); Monocytes # 0.4 10^3/uL (0.2-0.9); Neutrophils # 7.23 10^3/uL (1.8-7.7); Neutrophils % 88.3 %; Nucleated Red Blood Cells % 0 %; Platelet Count 122 10^3/cmm (130-400); White Blood Count 8.2 10^3/uL (4.0-10.0)
[2021-06-22 12:48] LABS: Alanine Aminotransferase 8 U/L (0-41); Alkaline Phosphatase 65 IU/L (40-130); Anion Gap 18.3 (5-19); Aspartate Amino Transferase 13 U/L (0-40); Blood Urea Nitrogen 8 mg/dL (6-20); Calcium 8.9 mg/dL (8.5-10.5); Carbon Dioxide 25 mmol/L (22-29); Chloride 89 mmol/L (98-107); Globulin 3.1 g/dL (1.3-4.6); Glomerular Filtration Rate 220.9 mL/min (90-130); Glucose 92 mg/dL (65-115); Osmolality Calculated 266 mOsm/kg (285-295); Potassium 3.3 mmol/L (3.5-5.1); Sodium 129 mmol/L (136-145); Total Bilirubin 0.8 mg/dL (0.15-1.2); Total Protein 7.1 g/dL (6.6-8.7)
== END 2021-06-22 17:07 | disposition left against medical advice (07) ==
PROVIDERS: Physician Assistant; Emergency Provider Family Medicine; PCP Nurse Practitioner
DX: Z53.21 Procedure and treatment not carried out due to patient leaving prior to being seen by health care provider (principal)
CPT/HCPCS: 36415; 80053; 85025

== ENCOUNTER 2021-06-23 09:50 | Outpatient (RCR) | payer MEDICARE, SELFPAY ==
[2021-06-23] MEDS: sodium chloride 0.9% 1,000 ML 999 ML IV (10:10)
== END 2021-07-03 23:59 | disposition home or self-care (01) ==
LOC: ONCMED 09:50
PROVIDERS: PCP Nurse Practitioner; Visit Provider Internal Medicine Hematology & Oncology
DX: C15.5 Malignant neoplasm of lower third of esophagus (principal); C79.51 Secondary malignant neoplasm of bone; D47.3 Essential (hemorrhagic) thrombocythemia; D70.1 Agranulocytosis secondary to cancer chemotherapy; T45.1X5A Adverse effect of antineoplastic and immunosuppressive drugs, initial encounter; Z79.899 Other long term (current) drug therapy
CPT/HCPCS: 96360; J7030

== ENCOUNTER 2021-06-23 11:26 | Emergency (ER) | payer MEDICARE, SELFPAY ==
[2021-06-23 12:20] VITALS: BP 93/61; PULSE 78; RESP 16; TEMP 36.3; O2SAT 97; BMI 23.6
--- NOTE | 2021-06-23 12:26 | ECG_ITS ---
[facility] Test Date: 2021-06-23 Pat Name: Maximino Sandoval Department: Room: Gender: Male [employer]: : 1965 Requested By: Brooke Cramer Order Number: [id number] William MD: Vidhya Reilly M.D. Measurements Intervals [place] Rate: 71 P: -17 GA: 182 QRS: 37 QRSD: 95 T: 19 QT: 397 QTc: 432 Interpretive Statements SINUS RHYTHM Compared to ECG 06/14/2021 16:40:39 First degree AV block no longer present Electronically Signed On 06-23-2021 17:53:24 NURSERY NURSE by Vidhya Reilly M.D. [email or web address]
--- NOTE | 2021-06-23 12:26 | XR_ITS ---
WS: [id number] Exam: XR chest 1V portable [id number] Date/Time of Exam: 06/23/2021 12:41 PM Reason For Exam: chest pain Comparison 06/14/2021. The lungs are fully expanded and clear. Cardiomediastinal structures are unremarkable for portable [place]. Left subclavian port ends in the lower one third of the SVC in good position. Healing left f ourth rib fracture. XR/XR chest 1V portable [id number] IMPRESSION: 1. No acute cardiopulmonary process. 2. Healing fracture of the lateral left fourth rib.
--- NOTE | 2021-06-23 12:26 | ED_ITS ---
HPI - General Adult General: Chief complaint: Chest Pain Stated complaint: Weakness still not eating and keeping things down Time Seen by Provider: 06/23/21 12:26 Source: patient and family Mode of arrival: wheelchair Limitations: no limitations History of Present Illness: HPI narrative: Patient is a 56-year-old male who presents to ED today with complaint of weakness, chest pain, back pain, and feeding tube leakage. Patient was here yesterday for concerns that his Hany button was leaking. Unfortunately due to extremely lengthy wait times patient eloped from the waiting room. According to family he saw Dr. Ramachandran today who recommended he come back to the ED for evaluation. Family also states patient has fallen since yesterday-reports he struck his head. Denies neck pain. Patient has known lytic lesion to cervical spine. 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 Anemia Atypical lymphocytosis Chronic kidney disease COPD (chronic obstructive pulmonary disease) Coronary artery disease Diabetes mellitus Dilutional hyponatremia (~07/2019) Dyslipidemia Dysphagia Esophageal adenocarcinoma Gastro-esophageal reflux disease without esophagitis Generalized anxiety disorder Hypertension Immunocompromised Impaired gait and mobility Lumbago Myocardial infarct Rheumatoid arthritis Rheumatoid arthritis SIRS (systemic inflammatory response syndrome) Surgical History H/O heart artery stent History of colonoscopy History of endoscopy (04/13/21) 08/14/20 - Esophageal mass Port-A-Cath in place (09/29/20) Status post insertion of percutaneous endoscopic gastrostomy (PEG) tube (11/12/20) Family History Family/Other Cancer Family members in general Diabetes Family members in general Hypothyroid Family members in general Social History Quit status (tobacco): quit date established Second hand smoke exposure: No Smoking risk assessment/counseling performed?: No Alcohol intake: never Desire information about alcohol rehabilitation?: No Counseling given: No Desire information about substance/drug rehabilitation?: No Counseling given: No Caregiver/support person: No Lives independently: Yes Household members: significant other Marital status: Single History of recent travel: No Current gender identity: Male Physical Exam Const: COMMON NORMALS: patient oriented x3, no limitations and alert GENERAL APPEARANCE: cooperative Neuro: COMMON NORMALS: patient oriented x3 SENSORIUM/ORIENTATION: Yes alert Course Vital Signs: Vital signs: Vital Signs Temperature 98.3 F 06/23/21 13:58 Pulse Rate 72 06/23/21 17:43 Respiratory Rate 20 H 06/23/21 17:43 Blood Pressure 107/70 06/23/21 17:43 Pulse Oximetry 96 06/23/21 17:43 MDM - General Adult MDM Narrative: Medical decision making narrative: Brief history and physical exam was performed as part of the triage process. Due to current ED wait time patient will be placed in waiting room until a room becomes available. Explained to patient he/she will be seen in order of severity. Patient is currently safe to wait in the waiting room until we can get them placed. Patie nt informed that if condition worsens at any time to please let the front desk host know. Lab Data: Labs: Lab Results 06/23/21 06/23/21 06/23/21 12:38 12:38 12:38 WBC 5.4 10^3/uL 10^3/ uL (4.0-10.0) RBC 3.20 10^6/uL L 10 ^6/uL (4.1-5.3) Hgb 9.2 g/dL L g/dL (11.7-16.6) Hct 33.2 % L % (42.0-52.0) MCV 103.8 fl H D fl (80-94) MCH 28.8 pg D pg (28.0-34.0) MCHC 27.7 g/dL L D g/d L (30.0-36.0) RDW 19.1 % H % (12.1-15.1) Plt Count 175 10^3/cmm D 1 0^3/cmm (130-400) MPV 10.4 fL fL (7.4-10.4) Neut % (Auto) 56.9 % % Lymph % (Auto) 25.3 % % [place] % (Auto) 13.8 % % Eos % (Auto) 0.2 % % Baso % (Auto) 0.7 % % Neut # (Auto) 3.08 10^3/uL 10^3 /uL (1.8-7.7) Lymph # (Auto) 1.4 10^3/uL 10^3/ uL (0.8-4.8) [place] # (Auto) 0.8 10^3/uL 10^3/ uL (0.2-0.9) Eos # (Auto) 0.0 10^3/uL 10^3/ uL (0.0-0.8) Baso # (Auto) 0.0 10^3/uL 10^3/ uL (0.0-0.1) Nucleated RBC % (a uto) 0 % % Nucleated RBCs # 0.0 /100WBC /100W BC Sodium 137 mmol/L mmol/L (136-145) Potassium 3.5 mmol/L mmol/L (3.5-5.1) Chloride 104 mmol/L mmol/L (98-107) Carbon Dioxide 20 mmol/L L mmol/ L (22-29) Anion Gap 16.5 (5-19) BUN 13 mg/dL mg/dL (6-20) Creatinine 0.8 mg/dL mg/dL (0.7-1.2) GFR Calculation 99.3 mL/min mL/mi n (90-130) Glucose 51 mg/dL L mg/dL (65-115) Calculated Osmolal ity 281 mOsm/kg L mOs m/kg (285-295) Calcium 7.2 mg/dL L mg/dL (8.5-10.5) Total Bilirubin 0.3 mg/dL mg/dL (0.15-1.2) AST 29 U/L U/L (0-40) ALT 16 U/L U/L (0-41) Alkaline Phosphata se 243 IU/L H IU/L (40-130) Troponin T Baselin e 19 ng/L H ng/L (0-15) Troponin T 120 Min [place] Delta Troponin T Total Protein 5.7 g/dL L g/dL (6.6-8.7) Albumin 2.6 g/dL L g/dL (3.5-5.2) Globulin 3.1 g/dL g/dL (1.3-4.6) Urine Color Urine Appearance Urine pH Ur Specific Gravit y Urine Protein Urine Glucose (UA) Urine Ketones Urine Blood Urine Nitrate Urine Bilirubin Urine Urobilinogen Ur Leukocyte Cydney ase 06/23/21 06/23/21 12:38 14:49 WBC RBC Hgb Hct MCV MCH MCHC RDW Plt Count MPV Neut % (Auto) Lymph % (Auto) [place] % (Auto) Eos % (Auto) Baso % (Auto) Neut # (Auto) Lymph # (Auto) [place] # (Auto) Eos # (Auto) Baso # (Auto) Nucleated RBC % (a uto) Nucleated RBCs # Sodium Potassium Chloride Carbon Dioxide Anion Gap BUN Creatinine GFR Calculation Glucose Calculated Osmolal ity Calcium Total Bilirubin AST ALT Alkaline Phosphata se Troponin T Baselin e Troponin T 120 Min [place] 19.26 ng/L H ng/L (0-15) Delta Troponin T 0.26 ABS# ABS# (0-10) Total Protein Albumin Globulin Urine Color Yellow (Yellow) Urine Appearance Clear (CLEAR) Urine pH 7 (5-7) Ur Specific Gravit y 1.005 (1.005-1.030) Urine Protein Neg (Negative) Urine Glucose (UA) Norm (Normal) Urine Ketones 1+ H (Negative) Urine Blood Neg (Negative) Urine Nitrate Negative (Negative) Urine Bilirubin Neg (Negative) Urine Urobilinogen Norm mg/dL mg/dL (Negative) Ur Leukocyte Cydney ase Negative (Negative) Discharge Plan Discharge Patient Disposition: Home Clinical Impression: Cervical compression fracture, Esophageal cancer, Lumbar back pain Condition: Stable Prescriptions: No Action (DME) Wheelchair See Rx Instructions .Route .MEDSUPPLY Qty: 1 RF: 0 lovastatin 20 mg tablet 20 mg PO DAILY@0830 Qty: 90 RF: 1 metoclopramide HCl [Reglan] 5 mg tablet 5 mg PO TID 30 Days Qty: 90 RF: 2 nitroglycerin 0.4 mg tablet, sublingual See Rx Instructions .ROUTE .COMPLEX Qty: 25 RF: 0 folic acid 1 mg tablet 1 mg PO DAILY@0830 RF: 0 ondansetron HCl 4 mg tablet 4 mg PO Q8H PRN (Reason: NAUSEA/VOMITING) RF: 0 prochlorperazine maleate 10 mg tablet 10 mg PO Q4H PRN (Reason: NAUSEA/VOMITING) RF: 0 dexamethasone 4 mg tablet See Rx Instructions .ROUTE .COMPLEX RF: 0 Humulin R Regular U-100 Insuln 100 unit/mL solution See Rx Instructions .ROUTE .COMPLEX RF: 0 lorazepam 1 mg tablet 0.5 - 1 mg PO TID PRN (Reason: Anxiety) RF: 0 pantoprazole 40 mg tablet,delayed release (DR/EC) 40 mg PO DAILY RF: 0 silver sulfadiazine [Silvadene] 1 % cream 1 applic topical BID PRN (Reason: wound healing) Qty: 50 RF: 0 bacitracin zinc 500 unit/gram Ointment 1 applic TOPICAL BID RF: 0 oxycodone-acetaminophen 10-325 mg tablet 1 - 2 tab PO Q4H PRN (Reason: Pain) RF: 0 prednisone 20 mg tablet 20 mg PO BID RF: 0 amino acids-whey prot conc,iso 20 gram-110 kcal/28 gram Powder See Rx Instructions .ROUTE .COMPLEX RF: 0 magnesium 1 tab PO QAM RF: 0 sertraline [Zoloft] 100 mg tablet 100 mg PO QAM RF: 0 glipizide 5 mg tablet extended release 24hr 5 mg PO QAM RF: 0 nystatin 100,000 unit/gram cream See Rx Instructions .ROUTE .COMPLEX RF: 0 bupropion HCl 150 mg tablet extended release 24 hr 150 mg PO QAM RF: 0 tizanidine 4 mg capsule 4 mg PO Q12H RF: 0 (DME) Stomahesive Skin Barrier 1 / misc See Rx Instructions .Route Qty: 10 RF: 0 (DME) Ostomy Appliance Belt Misc See Rx Instructions .Route Qty: 1 RF: 0 (DME) ostomy kit Kit See Rx Instructions .Route Qty: 1 RF: 0 Discharge Orders: Discharge ED (Routine); Ordered 06/23/21 Ordered By: Marcial Pierre Other Ambulatory Orders: Physical Therapy Eval and Treat Outpatient (Order) Timeframe: 1 Day Facility: [facility] - Location: Physical Therapy Ordered By: Marcial Pierre Referrals: Stephany Villalpando, [facility] [Primary Care Provider] - Discharge Diet: Usual diet Discharge Activity: Limit activity as instructed Patient Instructions: Opioid Safety Activity Restrictions/Additional Instructions: Follow-up with Dr. Zepeda next week. Leave the neck brace in place until you see him. Case management will help make the follow-up appointment. Return if you have further problems. Coding Level of Care Code ED [employer] for [employer]ra [employer] Exam Problem Focused
--- NOTE | 2021-06-23 12:30 | CTR_ITS ---
PROCEDURE INFORMATION: Exam: CT Head Without Contrast Exam date and time: 06/23/2021 12:30 PM Age: 56 years old Clinical indication: Injury or trauma; Blunt trauma (contusions or hematomas); Consciousness not specified; Injury date: 06/22/2021; Injury details: History--fall last night, known cervical lytic lesion, ; patient HX: HX of neck cancer; Additional info: Fall, struck head TECHNIQUE: Imaging protocol: Computed tomography of the head without contrast. Radiation optimization: All CT scans at this facility use at least one of these dose optimization techniques: automated exposure control; mA and/or kV adjustment per patient size (includes targeted exams where dose is matched to clinical indication); or iterative reconstruction. COMPARISON: MR cervical spine wo/w [id number] 10/21/2020 10:08 AM RADIATION DOSE METRICS: Total DLP (mGy-cm): 949.77 FINDINGS: Brain: No hemorrhage. Mild diffuse cerebral atrophy. Unremarkable white matter. No mass effect. Cerebral ventricles: No ventriculomegaly. Paranasal sinuses: Visualized sinuses are unremarkable. No fluid levels. Mastoid air cells: Visualized mastoid air cells are well aerated. Bones/joints: Unremarkable. No acute fracture. Soft tissues: Unremarkable. CT/CT head wo con* [id number] IMPRESSION: No acute intracranial abnormality.
--- NOTE | 2021-06-23 12:30 | CTR_ITS ---
PROCEDURE INFORMATION: Exam: CT Cervical Spine Without Contrast Exam date and time: 06/23/2021 12:30 PM Age: 56 years old Clinical indication: Injury or trauma; Fall; Blunt trauma; Injury date: 06/22/2021; Patient HX: Patient is a 56-year-old male who presents to ED today with complaint of weakness, chest pain, back pain, and feeding tube leakage. HX of neck cancer; Additional info: Fall, struck head; Known cervical lytic lesion. This is a 55-year-old man with moderate to poorly. Differentiated adenocarcinoma of the esophagus, by clinical evaluation stage. Iv. TECHNIQUE: Imaging protocol: Computed tomography images of the cervical spine without contrast. Radiation optimization: All CT scans at this facility use at least one of these dose optimization techniques: automated exposure control; mA and/or kV adjustment per patient size (includes targeted exams where dose is matched to clinical indication); or iterative reconstruction. COMPARISON: MR cervical spine wo/w [id number] 10/21/2020 10:08 AM RADIATION DOSE METRICS: Total DLP (mGy-cm): 602.62 FINDINGS: Bones/joints: Severe compression fracture of C5. This is considered age indeterminate as some lucent fracture line is still seen although there is also sclerotic change in this region. This is new from most recent comparison 10/21/2020. Moderate diffuse vertebral body height loss of the segment below C6 which is unchanged. No malalignment. Discs/Spinal canal/Neural foramina: No significant disc protrusion. No severe spinal canal stenosis. No significant neural foraminal narrowing. Lymph nodes: Bulky left supraclavicular lymph nodes measuring up to 1.7 cm in short axis series 603, image 54. Mildly prominent mediastinal lymph nodes are also noted including a rounded lymph node measuring up to 1 cm in the right paratracheal region series 603, image 66. Lungs: Right apical scarring is noted. Soft tissues: Unremarkable. CT/CT cervical spin wo con* [id number] IMPRESSION: 1. Severe age-indeterminate compression fracture of C5 which is new from most recent comparison 10/21/2020. 2. Bulky left supraclavicular lymphadenopathy. There is also mild mediastinal adenopathy. Given history of stage IV esophageal cancer this is suspicious for metastatic adenopathy.
[2021-06-23 12:53] LABS: Basophils % 0.7 %; Eosinophils % 0.2 %; Hematocrit 33.2 % (42.0-52.0); Hemoglobin 9.2 g/dL (11.7-16.6); Lymphocytes # 1.4 10^3/uL (0.8-4.8); Lymphocytes % 25.3 %; Mean Corpuscular HGB Conc 27.7 g/dL (30.0-36.0); Mean Corpuscular Hemoglobin 28.8 pg (28.0-34.0); Mean Corpuscular Volume 103.8 fl (80-94); Mean Platelet Volume 10.4 fL (7.4-10.4); Monocytes # 0.8 10^3/uL (0.2-0.9); Monocytes % 13.8 %; Neutrophils # 3.08 10^3/uL (1.8-7.7); Neutrophils % 56.9 %; Nucleated Red Blood Cells % 0 %; Platelet Count 175 10^3/cmm (130-400); Red Cell Distribution Width 19.1 % (12.1-15.1); White Blood Count 5.4 10^3/uL (4.0-10.0)
[2021-06-23 13:17] LABS: Alanine Aminotransferase 16 U/L (0-41); Albumin Level 2.6 g/dL (3.5-5.2); Alkaline Phosphatase 243 IU/L (40-130); Anion Gap 16.5 (5-19); Aspartate Amino Transferase 29 U/L (0-40); Blood Urea Nitrogen 13 mg/dL (6-20); Calcium 7.2 mg/dL (8.5-10.5); Carbon Dioxide 20 mmol/L (22-29); Chloride 104 mmol/L (98-107); Globulin 3.1 g/dL (1.3-4.6); Glomerular Filtration Rate 99.3 mL/min (90-130); Glucose 51 mg/dL (65-115); Osmolality Calculated 281 mOsm/kg (285-295); Potassium 3.5 mmol/L (3.5-5.1); Sodium 137 mmol/L (136-145); Total Bilirubin 0.3 mg/dL (0.15-1.2); Total Protein 5.7 g/dL (6.6-8.7)
[2021-06-23 13:18] LABS: Troponin(5th) Baseline 19 ng/L (0-15)
[2021-06-23 13:22] LABS: Add Urine Microscopic? NO; Charge for UA Resulting for Rev
[2021-06-23 13:33] LABS: Specific Gravity, Urine 1.005 (1.005-1.030); Urine Appearance Clear (CLEAR); Urine Color Yellow (Yellow); pH Urine 7 (5-7)
[2021-06-23 13:34] LABS: Bilirubin Urine Neg (Negative); Blood Urine Neg (Negative); Glucose Urine UA Norm (Normal); Ketones Urine 1+ (Negative); Leukocyte Esterase Urine Negative (Negative); Nitrate Urine Negative (Negative); Protein Urine Neg (Negative); Urobilinogen Urine Norm (Negative)
[2021-06-23 13:58] VITALS: BP 109/65; PULSE 76; RESP 22; TEMP 36.8; O2SAT 95
--- NOTE | 2021-06-23 14:26 | ECG_ITS ---
[facility] Test Date: 2021-06-23 Pat Name: Maximino Sandoval Department: Room: Gender: Male Dump Motorman: : 1965 Requested By: Brooke Cramer Order Number: [id number] William MD: Vidhya Reilly M.D. Measurements Intervals [place] Rate: 70 P: 100 SC: 191 QRS: 19 QRSD: 97 T: 1 QT: 388 QTc: 421 Interpretive Statements SINUS RHYTHM MODERATE T-WAVE ABNORMALITY, CONSIDER ANTERIOR ISCHEMIA [-0.1+ mV T-WAVE IN V3/V4] Compared to ECG 06/23/2021 12:27:07 T-wave abnormality now present Possible ischemia now present Electronically Signed On 06-23-2021 17:56:08 COSMETOLOGY PROFESSOR by Vidhya Reilly M.D. [id number]
--- NOTE | 2021-06-23 14:42 | PC.PHAR ---
pts verified pts medications
[2021-06-23 15:19] LABS: Troponin 5 2HR 19.26 ng/L (0-15); Troponin 5 2HR Delta 0.26 ABS# (0-10)
[2021-06-23 15:35] VITALS: BP 107/70; PULSE 76; RESP 19; O2SAT 94
--- NOTE | 2021-06-23 15:45 | CTR_ITS ---
PROCEDURE INFORMATION: Exam: CT Lumbar Spine Without Contrast Exam date and time: 06/23/2021 3:45 PM Age: 56 years old Clinical indication: Injury or trauma; Fall; Blunt trauma (contusions or hematomas); Additional info: Pain/fall/esophogeal CA TECHNIQUE: Imaging protocol: Computed tomography images of the lumbar spine without contrast. Radiation optimization: All CT scans at this facility use at least one of these dose optimization techniques: automated exposure control; mA and/or kV adjustment per patient size (includes targeted exams where dose is matched to clinical indication); or iterative reconstruction. COMPARISON: CR XR lumbar spine 2-3V* [id number] 04/10/2021 3:57 PM RADIATION DOSE METRICS: Total DLP (mGy-cm): 2413.11 FINDINGS: Vertebrae: A thin linear area of sclerosis is seen just inferior to the superior endplate of L2. This could be indicative of a compression fracture but does not appear acute. No acute fracture. Advanced multilevel degenerative disc disease and spondylosis throughout the lumbar spine with sparing of the L5-S1 segment. Discs/Spinal canal/Neural foramina: See Soft tissues finding. Vasculature: Mild ectasia of the distal abdominal aorta up to 2.3 cm. Lymph nodes: Bulky retroperitoneal adenopathy is noted. The largest node measures 1.7 cm in short axis series 3, image 43. Soft tissues: Irregular expanded and permeative appearance of the left transverse process of L2 with some adjacent lobulated soft tissue within the paraspinal musculature consistent with a metastatic lesion with extraosseous extension. There is no clear extension into the pedicle/lamina or spinal canal at this level. CT/CT lumbar spine wo con* [id number] IMPRESSION: 1. Thin linear area of sclerosis inferior to the superior endplate of L2. This could represent a compression fracture but does not appear acute. 2. Metastatic lesion within the left transverse process of L2 with extraosseous extension into the adjacent paraspinal musculature. 3. Bulky retroperitoneal metastatic adenopathy.
[2021-06-23 15:57] VITALS: RESP 20
[2021-06-23] MEDS: morphine 4 mg/mL SDV 1 mL IVP (15:57)
[2021-06-23 17:43] VITALS: BP 107/70; PULSE 72; RESP 20; O2SAT 96
== END 2021-06-23 17:45 | disposition home or self-care (01) ==
PROVIDERS: Physician Assistant; Emergency Provider Family Medicine; PCP Nurse Practitioner
DX: M48.52XA Collapsed vertebra, not elsewhere classified, cervical region, initial encounter for fracture (principal); C15.9 Malignant neoplasm of esophagus, unspecified; M54.50 Low back pain, unspecified; I25.10 Atherosclerotic heart disease of native coronary artery without angina pectoris; J44.9 Chronic obstructive pulmonary disease, unspecified; K21.9 Gastro-esophageal reflux disease without esophagitis; F41.1 Generalized anxiety disorder; G89.29 Other chronic pain; I12.9 Hypertensive chronic kidney disease with stage 1 through stage 4 chronic kidney disease, or unspecified chronic kidney disease; E11.22 Type 2 diabetes mellitus with diabetic chronic kidney disease; N18.9 Chronic kidney disease, unspecified; Z79.899 Other long term (current) drug therapy; F17.210 Nicotine dependence, cigarettes, uncomplicated; Z79.4 Long term (current) use of insulin; Z79.891 Long term (current) use of opiate analgesic
CPT/HCPCS: 36415; 70450; 71045; 72125; 72131; 80053; 81003; 84484; 85025; 93005; 96374; 97760; 99284; J2270; L0174

== ENCOUNTER 2021-06-25 07:46 | Inpatient (IN) | payer MEDICARE, SELFPAY ==
[2021-06-25] VITALS (29 sets, daily range): BP systolic 67–123; BP diastolic 41–90; PULSE 63–81; RESP 13–22; TEMP 36.3–36.9; O2SAT 91–100; BMI 24.3
--- NOTE | 2021-06-25 07:47 | XRR_ITS ---
PROCEDURE INFORMATION: Exam: XR Chest Exam date and time: 06/25/2021 7:47 AM Age: 56 years old Clinical indication: Cough and dyspnea; Patient HX: PT unable to give good history, low blood sugar; Additional info: Dyspnea/cough TECHNIQUE: Imaging protocol: XR of the chest. Views: 1 view. COMPARISON: CR XR chest 1V portable [id number] 06/23/2021 12:53 PM FINDINGS: Tubes, catheters and devices: A MediPort catheter is present with the tip projecting in the SVC. Lungs: There is mild subsegmental basilar atelectasis. Pleural spaces: Unremarkable. No pleural effusion. No pneumothorax. Heart/Mediastinum: Unremarkable. No cardiomegaly. Bones/joints: Unremarkable. XR/XR chest 1V portable [id number] IMPRESSION: Mild basilar atelectasis.
--- NOTE | 2021-06-25 07:48 | ECG_ITS ---
[facility] Test Date: 2021-06-25 Pat Name: Maximino Sandoval Department: Room: Gender: Male Laboratory Monitor: : 1965 Requested By: Marcial Aranda Order Number: [id number] William MD: Elliott Muñoz M.D. Measurements Intervals [place] Rate: 69 P: CA: QRS: 40 QRSD: 93 T: -29 QT: 376 QTc: 404 Interpretive Statements SINUS RHYTHM NONSPECIFIC T-WAVE ABNORMALITY Compared to ECG 06/23/2021 15:31:46 Possible ischemia no longer present T-wave abnormality still present Electronically Signed On 06-25-2021 8:44:10 PROPERTY FIELD INSPECTOR by Elliott Muñoz M.D. [id number]
--- NOTE | 2021-06-25 07:48 | ED_ITS ---
HPI - General Adult General: Chief complaint: General Medical Stated complaint: LOW BS Time Seen by Provider: 06/25/21 07:47 History of Present Illness: HPI narrative: 56-year-old male presents emergency room with low blood sugar. Reported omelettes his blood sugars in the 50s EMS arrived they also found him to be hypotensive initially the blood systolic pressure in the 60s however repeat pressures 112 systolic. Patient is awake and alert answers questions. Patient has a history of esophageal cancer is a PEG tube PEG tube was leaking gastric secretions he has an ostomy bag over it is still actively leaking in the gastric secretions are soaking his clothing. And is that he was seen a couple days ago he had a fall he had a C5 compression fracture did not cause any cervical canal stenosis or neural impingement we discussed Dr. Zepeda who discharged home on [place] J collar he is wearing a [place] J collar however it is not appropriately applied. He denies any chest pain or shortness of breath no abdominal pain at this time. Initial pressure on arrival here by automated cuff was again in the upper 60s systolic. This improved on repeat blood pressure readings with adjustments to the cough. Patient has chronic chest pain which has been related to his esophageal cancer in the past. Onset (ago): minute(s) Location: neck, chest and back Severity: mild Quality: aching Pain Consistency: constant Relieving factors: immobilization and medication Exacerbating factors: movement Associated symptoms: Reports chest pain; Deny confusion, cough, diaphoresis, decreased appetite, dyspnea, fevers/chills, headache(s), malaise, nausea, rash, palpitations, seizures, short of breath, syncope, vomiting or weakness Treatments prior to arrival: none Review of Systems Const: Denies: malaise or diaphoresis ENMT: Denies: throat pain, ear or mastoid pain, nasal discharge or nasal congestion Card: Reports: chest pain; Denies: palpitations or syncope Resp: Denies: dyspnea GI: Denies: nausea or vomiting : Denies: flank pain, dysuria, urinary frequency or urinary urgency Skin/Breast: Denies: rash Neuro: Denies: headache(s) or confusion PFS ED PFSH: Medical History 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 Anemia Atypical lymphocytosis Chronic kidney disease COPD (chronic obstructive pulmonary disease) Coronary artery disease Diabetes mellitus Dilutional hyponatremia (~07/2019) Dyslipidemia Dysphagia Esophageal adenocarcinoma Gastro-esophageal reflux disease without esophagitis Generalized anxiety disorder Hypertension Immunocompromised Impaired gait and mobility Lumbago Myocardial infarct Rheumatoid arthritis Rheumatoid arthritis SIRS (systemic inflammatory response syndrome) Surgical History H/O heart artery stent History of colonoscopy History of endoscopy (04/13/21) 08/14/20 - Esophageal mass Port-A-Cath in place (09/29/20) Status post insertion of percutaneous endoscopic gastrostomy (PEG) tube (11/12/20) Family History Family/Other Cancer Family members in general Diabetes Family members in general Hypothyroid Family members in general Social History Quit status (tobacco): quit date established Second hand smoke exposure: No Smoking risk assessment/counseling performed?: No Alcohol intake: never Desire information about alcohol rehabilitation?: No Counseling given: No Desire information about substance/drug rehabilitation?: No Counseling given: No Caregiver/support person: No Lives independently: Yes Household members: significant other Marital status: Single History of recent travel: No Current gender identity: Male Physical Exam Const: GENERAL APPEARANCE: cooperative ORIENTATION/CONSCIOUSNESS: Yes awake, Yes oriented to person, Yes oriented to place and Yes oriented to time HENMT: COMMON NORMALS: normocephalic, atraumatic and hearing grossly normal bilaterally HEAD & SCALP: normocephalic and atraumatic Resp: COMMON NORMALS: normal respiratory effort, No retractions, No use of accessory muscles and clear to auscultation bilaterally AUSCULTATION: clear to auscultation bilaterally Cardio: COMMON NORMALS: regular rate, regular rhythm and No murmurs present (Cardio) RATE: regular rate RHYTHM: regular rhythm GI: COMMON NORMALS: Soft to palpation and No hepatosplenomegaly present AUSCULTATION: Yes normoactive bowel sounds PALPATION: Yes Soft to palpation, No Tenderness to palpation present (GI), No Guarding due to palpation present (GI) and Yes No hepatosplenomegaly present Extremity: COMMON NORMALS: normal to inspection, capillary refill normal, no clubbing, cyanosis or edema, no calf tenderness and no pedal edema Neuro: SENSORIUM/ORIENTATION: Yes oriented to person, Yes oriented to place and Yes oriented to time Skin: COMMON NORMALS: no rashes or lesions noted GENERAL SKIN EXAM: no rashes or lesions noted Course Vital Signs: Vital signs: Vital Signs Temperature 98.3 F 06/27/21 14:36 Pulse Rate 81 06/27/21 14:36 Respiratory Rate 18 06/27/21 14:36 Blood Pressure 112/74 06/27/21 14:36 Pulse Oximetry 98 06/27/21 14:36 MDM - General Adult MDM Narrative: Medical decision making narrative: Hyperglycemic on arrival. Blood pressure blood pressure is intermittently been low as well. Will place patient in observation for pain control during blood pressure and adjustments of medications as needed. I also need to work with his PEG tube which is still leaking gastric secretions and causing quite a bit of irritation to the abdominal wall. Discussed with the patient. I am concerned with a number of frequent ER visits he probably needs a higher level of care may need to consider half-way. Lab Data: Labs: Lab Results 06/25/21 06/25/21 06/25/21 08:04 08:05 08:05 WBC 5.2 10^3/uL 10^3/ uL (4.0-10.0) RBC 2.49 10^6/uL L 10 ^6/uL (4.1-5.3) Hgb 7.0 g/dL L g/dL (11.7-16.6) Hct 22.4 % L % (42.0-52.0) MCV 90.0 fl fl (80-94) MCH 28.1 pg pg (28.0-34.0) MCHC 31.3 g/dL g/dL (30.0-36.0) RDW 19.1 % H % (12.1-15.1) Plt Count 120 10^3/cmm L 10 ^3/cmm (130-400) MPV 11.3 fL H fL (7.4-10.4) Lymph % (Auto) Not Reportable [place] % (Auto) Not Reportable Lymph # (Auto) Not Reportable [place] # (Auto) Not Reportable Total Counted 100 (0-100) Atypical Lymphs % 1.0 % % (0-5) Absolute Neutrophi ls 3.8 10^3/cmm 10^3 /cmm (1.4-6.5) Segmented Neutroph ils 54 % % Abs Segm Neuts (Ma n) 2.8 10/cmm 10/cmm (1.6-7.1) Band Neutrophils 19.0 % % Abs Band Neuts (Ma n) 1.0 10^3/cmm 10^3 /cmm (0.0-1.2) Absolute Lymphocyt es 0.9 10^3/cmm L 10 ^3/cmm (1.2-3.4) Lymphocytes (Manua l) 16 % % Monocytes (Manual) 6.0 % % Absolute Monocytes 0.3 10^3/cmm 10^3 /cmm (0.1-0.6) Eosinophils (Manua l) 2 % % Absolute Eosinophi ls 0.1 10^3/cmm 10^3 /cmm (0.0-0.7) Basophils (Manual) 0.0 % % Absolute Basophils 0.0 10^3/cmm 10^3 /cmm (0.0-0.2) Metamyelocytes 1.0 % % Myelocytes 1.0 % % Nucleated RBCs 1.0 /100WBC /100W BC (0-1) Platelet Estimate Decreased (Normal) Hypochromasia 1+ H Poikilocytosis 1+ H Tear Drop Cells 1+ Specimen Type Arterial Sample Site Brachial, right ABG pH 7.40 (7.35-7.45) ABG pCO2 37.3 mmHg mmHg (35-45) ABG pO2 73.0 mmHg L mmHg (80.0-100.0) ABG HCO3 23.2 mmol/L mmol/ L (22-26) ABG O2 Saturation 94.0 ABG Base Excess -1.4 mmol/L mmol/ L (-2.0-2.0) Bruno Test N/a A-a O2 Gradient 3.9 mmHg L mmHg (5-10) Hematocrit 22.5 % L % (42-52) Hgb O2 Saturation 91.6 % L % (95-100) Carboxyhemoglobin 1.0 %THgb %THgb (0.4-20.1) Methemoglobin 1.5 % % (0.4-1.5) Total Hemoglobin 7.3 g/dL L g/dL (14-18) Sodium 138.0 mmol/L mmol /L (131-143) Potassium 3.1 mmol/L L mmol /L (3.5-5.0) Glucose 83.0 mg/dL mg/dL (70-115) Ionized Calcium 1.1 mmol/L mmol/L (1.1-1.4) O2 Delivery Device Nc O2 Liters/Min 2.0 % % Individual Pension Adviser ID Rieri Chloride Carbon Dioxide Anion Gap BUN Creatinine GFR Calculation POC Glucose 81 mg/dL mg/dL (70-110) Calculated Osmolal ity Lactic Acid Calcium Magnesium Iron TIBC % Saturation Unsat Iron Binding Ferritin Total Bilirubin AST ALT Alkaline Phosphata se Total Protein Albumin Globulin Lipase Urine Color Urine Appearance Urine pH Ur Specific Gravit y Urine Protein Urine Glucose (UA) Urine Ketones Urine Blood Urine Nitrate Urine Bilirubin Urine Urobilinogen Ur Leukocyte Cydney ase Blood Type Rho(D) Type Antibody Screen Crossmatch 06/25/21 06/25/21 06/25/21 08:05 08:05 08:05 WBC RBC Hgb Hct MCV MCH MCHC RDW Plt Count MPV Lymph % (Auto) [place] % (Auto) Lymph # (Auto) [place] # (Auto) Total Counted Atypical Lymphs % Absolute Neutrophi ls Segmented Neutroph ils Abs Segm Neuts (Ma n) Band Neutrophils Abs Band Neuts (Ma n) Absolute Lymphocyt es Lymphocytes (Manua l) Monocytes (Manual) Absolute Monocytes Eosinophils (Manua l) Absolute Eosinophi ls Basophils (Manual) Absolute Basophils Metamyelocytes Myelocytes Nucleated RBCs Platelet Estimate Hypochromasia Poikilocytosis Tear Drop Cells Specimen Type Sample Site ABG pH ABG pCO2 ABG pO2 ABG HCO3 ABG O2 Saturation ABG Base Excess Bruno Test A-a O2 Gradient Hematocrit Hgb O2 Saturation Carboxyhemoglobin Methemoglobin Total Hemoglobin Sodium 138 mmol/L mmol/L (136-145) Potassium 3.2 mmol/L L mmol /L (3.5-5.1) Glucose 82 mg/dL mg/dL (65-115) Ionized Calcium O2 Delivery Device O2 Liters/Min Individual Pension Adviser ID Chloride 105 mmol/L mmol/L (98-107) Carbon Dioxide 20 mmol/L L mmol/ L (22-29) Anion Gap 16.2 (5-19) BUN 21 mg/dL H mg/dL (6-20) Creatinine 1.4 mg/dL H mg/dL (0.7-1.2) GFR Calculation 52.1 mL/min L mL/ min (90-130) POC Glucose Calculated Osmolal ity 288 mOsm/kg mOsm/ kg (285-295) Lactic Acid 1.5 mmol/L mmol/L (0.5-2.2) Calcium 6.5 mg/dL L mg/dL (8.5-10.5) Magnesium 1.5 mg/dL L mg/dL (1.7-2.3) Iron TIBC % Saturation Unsat Iron Binding Ferritin Total Bilirubin 0.4 mg/dL mg/dL (0.15-1.2) AST 34 U/L U/L (0-40) ALT 12 U/L U/L (0-41) Alkaline Phosphata se 231 IU/L H IU/L (40-130) Total Protein 4.4 g/dL L g/dL (6.6-8.7) Albumin 1.9 g/dL L g/dL (3.5-5.2) Globulin 2.5 g/dL g/dL (1.3-4.6) Lipase 10 U/L L U/L (13-60) Urine Color Urine Appearance Urine pH Ur Specific Gravit y Urine Protein Urine Glucose (UA) Urine Ketones Urine Blood Urine Nitrate Urine Bilirubin Urine Urobilinogen Ur Leukocyte Cydney ase Blood Type Rho(D) Type Antibody Screen Crossmatch 06/25/21 06/25/21 06/25/21 08:05 08:35 09:05 WBC RBC Hgb Hct MCV MCH MCHC RDW Plt Count MPV Lymph % (Auto) [place] % (Auto) Lymph # (Auto) [place] # (Auto) Total Counted Atypical Lymphs % Absolute Neutrophi ls Segmented Neutroph ils Abs Segm Neuts (Ma n) Band Neutrophils Abs Band Neuts (Ma n) Absolute Lymphocyt es Lymphocytes (Manua l) Monocytes (Manual) Absolute Monocytes Eosinophils (Manua l) Absolute Eosinophi ls Basophils (Manual) Absolute Basophils Metamyelocytes Myelocytes Nucleated RBCs Platelet Estimate Hypochromasia Poikilocytosis Tear Drop Cells Specimen Type Sample Site ABG pH ABG pCO2 ABG pO2 ABG HCO3 ABG O2 Saturation ABG Base Excess Bruno Test A-a O2 Gradient Hematocrit Hgb O2 Saturation Carboxyhemoglobin Methemoglobin Total Hemoglobin Sodium Potassium Glucose Ionized Calcium O2 Delivery Device O2 Liters/Min Individual Pension Adviser ID Chloride Carbon Dioxide Anion Gap BUN Creatinine GFR Calculation POC Glucose Calculated Osmolal ity Lactic Acid Calcium Magnesium Iron 9 ug/dL L ug/dL (59-158) TIBC 68 mcg/dl mcg/dl % Saturation 13.2 % L % (20-50) Unsat Iron Binding 59 ug/dL L ug/dL (112-347) Ferritin 2447 ng/mL H ng/m L (30-400) Total Bilirubin AST ALT Alkaline Phosphata se Total Protein Albumin Globulin Lipase Urine Color Yellow (Yellow) Urine Appearance Clear (CLEAR) Urine pH 5 (5-7) Ur Specific Gravit y 1.010 (1.005-1.030) Urine Protein Neg (Negative) Urine Glucose (UA) Norm (Normal) Urine Ketones 1+ H (Negative) Urine Blood Neg (Negative) Urine Nitrate Negative (Negative) Urine Bilirubin 1+ H (Negative) Urine Urobilinogen Norm mg/dL mg/dL (Negative) Ur Leukocyte Cydney ase Negative (Negative) Blood Type O Positive Rho(D) Type Positive Antibody Screen Negative Crossmatch See Detail Discharge Plan Discharge Patient Disposition: Admitted As Inpatient Admit Provider: Yazan Chavez Clinical Impression: Hypoglycemia, Coronary artery disease, Anemia, Esophageal cancer Condition: Stable Coding Level of Care Code ED General Internal Medicine Doctor for Libra Cook
[2021-06-25] MEDS: sodium chloride 0.9% 1,000 ML 999 ML IV ×2 (07:55→08:19)
[2021-06-25 08:09] LABS: Glucose Point of Care 81 mg/dL (70-110)
[2021-06-25 08:11] LABS: ABG PCO2 37.3 mmHg (35-45); Alveolar-Arterial Oxygen Gradi 3.9 mmHg (5-10); Arterial Blood Gas Hematocrit 22.5 % (42-52); Base Excess ABG -1.4 mmol/L (-2.0-2.0); Blood Gas Sample Site Brachial, right; Blood Gas Sample Type Arterial; HCO3 ABG 23.2 mmol/L (22-26); HGB O2 Sat 91.6 % (95-100); Ionized Calcium Level - ABG 1.1 mmol/L (1.1-1.4); Methemoglobin 1.5 % (0.4-1.5); Oxygen Device NC; Potassium Level - ABG 3.1 mmol/L (3.5-5.0); Total Hemoglobin 7.3 g/dL (14-18)
[2021-06-25 08:21] LABS: Hematocrit 22.4 % (42.0-52.0); Mean Corpuscular HGB Conc 31.3 g/dL (30.0-36.0); Mean Corpuscular Hemoglobin 28.1 pg (28.0-34.0); Mean Platelet Volume 11.3 fL (7.4-10.4); Platelet Count 120 10^3/cmm (130-400); Red Blood Count 2.49 10^6/uL (4.1-5.3); Red Cell Distribution Width 19.1 % (12.1-15.1); White Blood Count 5.2 10^3/uL (4.0-10.0)
[2021-06-25 08:35] LABS: Alanine Aminotransferase 12 U/L (0-41); Albumin Level 1.9 g/dL (3.5-5.2); Alkaline Phosphatase 231 IU/L (40-130); Anion Gap 16.2 (5-19); Aspartate Amino Transferase 34 U/L (0-40); Blood Urea Nitrogen 21 mg/dL (6-20); Calcium 6.5 mg/dL (8.5-10.5); Carbon Dioxide 20 mmol/L (22-29); Chloride 105 mmol/L (98-107); Globulin 2.5 g/dL (1.3-4.6); Glomerular Filtration Rate 52.1 mL/min (90-130); Glucose 82 mg/dL (65-115); Lipase 10 U/L (13-60); Osmolality Calculated 288 mOsm/kg (285-295); Potassium 3.2 mmol/L (3.5-5.1); Sodium 138 mmol/L (136-145); Total Bilirubin 0.4 mg/dL (0.15-1.2); Total Protein 4.4 g/dL (6.6-8.7)
[2021-06-25 08:36] LABS: Lactic Sepsis W/Reflex 1.5 mmol/L (0.5-2.2)
[2021-06-25 08:39] LABS: Slide Review Slide Review Perform
[2021-06-25 08:44] LABS: Absolute Eosinophils 0.1 10^3/cmm (0.0-0.7); Absolute Segmented Neutrophil 2.8 10/cmm (1.6-7.1); Eosinophils 2 %; Lymphocytes 16 %; Lymphocytes Absolute 0.9 10^3/cmm (1.2-3.4); Monocytes Absolute 0.3 10^3/cmm (0.1-0.6); Segmented Neutrophils 54 %; Total Cells Counted 100 (0-100)
[2021-06-25 08:45] LABS: Hypochromasia 1+; Poikilocytosis 1+
[2021-06-25 08:46] LABS: Absolute Neutrophil 3.8 10^3/cmm (1.4-6.5); Platelet Estimate Decreased (Normal); Tear Drop Cells 1+
[2021-06-25 08:56] LABS: Add Urine Microscopic? NO; Charge for UA Resulting for Rev
[2021-06-25 09:02] LABS: Bilirubin Urine 1+ (Negative); Blood Urine Neg (Negative); Glucose Urine UA Norm (Normal); Ketones Urine 1+ (Negative); Leukocyte Esterase Urine Negative (Negative); Nitrate Urine Negative (Negative); Protein Urine Neg (Negative); Urine Appearance Clear (CLEAR); Urine Color Yellow (Yellow); Urobilinogen Urine Norm (Negative); pH Urine 5 (5-7)
[2021-06-25] MEDS: sodium chloride 0.9% (100 ml) 100 ML 20 ML (10:32)
--- NOTE | 2021-06-25 11:19 | P.HP_ITS ---
Providers/Chief Complaint Primary Care Provider: FREIDA DaviesP-C Chief Complaint: LOW BS History of Present Illness Maximino Sandoval is a 56 year old male who presented to the emergency department with lethargy, glucose in the 50s. Significant other believes he may have taken some of his medication this morning but not all. She does not believe he had taken his prednisone. He has had no vomiting. He was recently in the hospital from June 14- with neutropenia, and treated with broad- spectrum antibiotics. There was significant leaking around his PEG tube site and cellulitis was suspected as well. Significant other reports he had an elevated temperature of 100.4 last night. She reports he has been vaccinated with Materna, even receiving his booster for Covid. She reports he tolerates some feedings of Glucerna through his PEG tube but usually does a small amount. He will take other feedings by mouth, and a pur?ed diet. She has not seen any blood in stool, blood from the PEG tube, and he has not had any nosebleeds. He is currently being treated for esophageal cancer by Dr. Caldwell. He is in a c-collar from a fall on June 25 he was found to have an indeterminate compression fracture of C5. The emergency department physician has alerted me Dr. Zepeda has reviewed this previously and wants the c-collar left in place until follow-up. He has a known metastatic lesion at C5 by MRI on October 21. This was treated with radiation in November 2020. In the emergency department he was given hydrocortisone, and IV fluids. 1 unit of blood, transfusion, was initiated. Review of Systems General: Reports: 10 or more systems reviewed and unremarkable except in HPI and below Const: Reports: fever(s), fatigue and malaise Eyes: Denies: change in vision ENMT: Denies: throat pain Card: Denies: chest pain Resp: Denies: dyspnea GI: Reports: dysphagia (Chronic secondary to his esophageal cancer); Denies: abdominal pain, nausea or vomiting : Denies: flank pain Musc: Denies: neck pain Skin/Breast: Denies: rash Neuro: Denies: headache(s) Psych: Reports: sleeping more; Denies: anxiety or depression Endo: Denies: polyuria Kb/Lymph: Denies: easy bruising All/Imm: Denies: urticaria Medications/Allergies Home Medications Medication Instructions Recorded Confirmed Last Taken Type Humulin R Regular U-100 Insuln See Rx Instructions .ROUTE .COMPLEX 12/05/20 06/25/21 3 Months Ago History ~01/29/21 dexamethasone See Rx Instructions .ROUTE .COMPLEX 12/05/20 06/25/21 06/10/21 02:30 History folic acid 1 mg PO DAILY@0830 12/05/20 06/25/21 06/25/21 History lorazepam 0.5 - 1 mg PO TID PRN 12/05/20 06/25/21 06/23/21 History 1 mg ondansetron HCl 4 mg PO Q8H PRN 12/05/20 06/25/21 1 Day Ago History ~04/30/21 prochlorperazine maleate 10 mg PO Q4H PRN 12/05/20 06/25/21 1 Day Ago History ~04/30/21 nitroglycerin 0.4 mg sublingual See Rx Instructions .ROUTE 02/10/21 06/25/21 1 Year Ago Rx tablet .COMPLEX #25 tablet ~05/01/20 pantoprazole 40 mg PO DAILY 04/13/21 06/25/21 06/25/21 History Wheelchair #1 ea 05/19/21 06/25/21 Unknown Rx lovastatin 20 mg tablet 20 mg PO DAILY@0830 #90 tab 05/23/21 06/25/21 06/24/21 Rx silver sulfadiazine [Silvadene] 1 applic TOPICAL BID PRN #50 g 05/30/21 06/25/21 Unknown Rx metoclopramide HCl 5 mg tablet 5 mg PO TID 30 Days #90 tab 06/01/21 06/25/21 06/25/21 Rx amino acids-whey prot conc,iso See Rx Instructions .ROUTE .COMPLEX 06/10/21 06/25/21 06/19/21 History bupropion HCl 150 mg PO QAM 06/10/21 06/25/21 06/25/21 History glipizide 5 mg PO QAM 06/10/21 06/25/21 06/25/21 History magnesium 1 tab PO QAM 06/10/21 06/25/21 06/25/21 History nystatin See Rx Instructions .ROUTE .COMPLEX 06/10/21 06/25/21 Unknown History prednisone 20 mg PO BID 06/10/21 06/25/21 06/25/21 History sertraline [Zoloft] 100 mg PO QAM 06/10/21 06/25/21 06/25/21 History tizanidine 4 mg PO Q12H 06/10/21 06/25/21 06/13/21 History colostomy belt [Ostomy Appliance #1 ea 06/17/21 06/25/21 Unknown Rx Belt] ostomy kit #1 ea 06/17/21 06/25/21 Unknown Rx ostomy supplies [Stomahesive Skin #10 ea 06/17/21 06/25/21 Unknown Rx Barrier] bacitracin zinc 1 applic TOPICAL BID 06/23/21 06/25/21 Unknown History oxycodone-acetaminophen 1 - 2 tab PO Q4H PRN 06/23/21 06/25/21 06/23/21 09:30 History Allergies Allergy/AdvReac Type Severity Reaction Status Date / Time lisinopril Allergy Intermediate ADR-Cough Verified 06/23/21 14:40 PFSH Acute PFSH: Medical History (Updated 06/25/21 @ 13:57 by Yazan Chavez MD) 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 Anemia Atypical lymphocytosis Chronic kidney disease COPD (chronic obstructive pulmonary disease) Coronary artery disease Diabetes mellitus Dilutional hyponatremia (~07/2019) Dyslipidemia Dysphagia Esophageal adenocarcinoma Gastro-esophageal reflux disease without esophagitis Generalized anxiety disorder Hypertension Immunocompromised Impaired gait and mobility Lumbago Myocardial infarct Rheumatoid arthritis Rheumatoid arthritis SIRS (systemic inflammatory response syndrome) Surgical History H/O heart artery stent History of colonoscopy History of endoscopy (04/13/21) 08/14/20 - Esophageal mass Port-A-Cath in place (09/29/20) Status post insertion of percutaneous endoscopic gastrostomy (PEG) tube (11/12/20) Family History Family/Other Cancer Family members in general Diabetes Family members in general Hypothyroid Family members in general Social History Quit status (tobacco): quit date established Second hand smoke exposure: No Smoking risk assessment/counseling performed?: No Alcohol intake: never Desire information about alcohol rehabilitation?: No Counseling given: No Desire information about substance/drug rehabilitation?: No Counseling given: No Caregiver/support person: No Lives independently: Yes Household members: significant other Marital status: Single History of recent travel: No Current gender identity: Male Vitals/I&O/Wt Last Vital Signs Temp 97.9 F 06/25/21 10:21 Pulse 74 06/25/21 10:40 Resp 15 06/25/21 10:40 BP 95/73 06/25/21 10:40 Pulse Ox 95 06/25/21 10:40 06/24/21 06/25/21 06/25/21 22:59 06:59 14:59 Intake Total 1999 Balance 1999 Weight last 48 hrs Weight 72.575 kg Physical Exam Narrative: EXAM NARRATIVE: General exam is a sleepy white male, in no obvious distress. Vital signs in the emergency department carefully reviewed. He is afebrile. He has marked hypotension at times. HEENT: Atraumatic normocephalic. Pupils equally round. Oropharynx clear. Neck with brace. Cardiovascular regular rate and rhythm without murmur Lungs clear. Diminished breath sounds at the bases Abdomen is soft. Positive bowel sounds. Erythema around G-tube site. exam demonstrates [place] Extremities no cyanosis clubbing or edema. Faint erythematous macular plaques are noted at the sides of his feet bilaterally. Neuro: Sleepy but no focal deficits Skin see findings on extremities above Urinary Catheter Management^: [place]: Cath Placed During This Visit: yes Urinary Catheter Date of Insertion: 06/25/21 Urinary Catheter Time of Insertion: 08:40 Data : 06/25/21 08:05 06/25/21 08:05 Micro: Microbiology 06/25/21 08:05 Blood Culture - Preliminary Blood SPECIMEN COLLECTED 06/25/21 08:22 Blood Culture - Preliminary Blood SPECIMEN COLLECTED Other data: Chest x-ray demonstrates mild basilar atelectasis Blood cultures were drawn ABG demonstrates pH 7.4, PCO2 of 37, PO2 of 73 on 2 L Calcium 6.5, albumin 1.9, LFTs normal with exception of alk phos of 231, lipase 10, urinalysis benign A&P Assessment and plan (1) Hypotension: Apparently he runs on the low side to start with, although it was markedly low in the ER with a systolic in the 70s. Part of this could be reflective of his anemia, however infection could also be driving this with his history of elevated temperature of 100.4 or adrenal crisis considering long-term steroid maintenance. Monitor in the ICU initially Hydrocortisone IV Transfuse 1 unit of blood, repeating hemoglobin following transfusion Status: Acute (2) Anemia: See above Stool Hemoccult Anemia panel Status: Acute (3) Hypoglycemia: Continue to monitor glucose closely Hold off on any insulin products Permanently discontinue his oral sulfonylurea D5 normal saline 75 cc an hour Continue hydrocortisone for concern of adrenal insufficiency which should increase glucose as well. Status: Acute (4) Elevated temperature: Blood culture Empiric antibiotics vancomycin and Zosyn Covid PCR Status: Acute (5) Esophageal cancer: Has known esophageal cancer, with worsening quality of life. He is contemplating whether or not he wants to undergo any further chemotherapy. He will discuss this with his oncologist in the future. Status: Acute (6) Cervical compression fracture: Recent fall with compression fracture. He should be wearing his c-collar at all times. He will need follow-up with Dr. Zepeda. He has had radiation treatment to this area in the past secondary to metastatic cancer Status: Acute (7) Hypokalemia: Supplement IV. Check magnesium level Status: Acute (8) COPD (chronic obstructive pulmonary disease): DuoNeb as needed. No evidence of exacerbation currently. Status: Acute (9) Coronary artery disease: Continue home medications Status: Acute Additional A&P Information Multiple other medical problems as outlined in past medical history Allow natural SCDs for DVT prophylaxis initially secondary to severe anemia Attestations Medical Necessity Statement*: Will need greater than 2 midnight stay for evaluation and treatment of elevated temperature, anemia, hypotension Time Spent in Patient Care: Greater than 35 minutes Critical Care Time: Critical Care Time (min): 47 Other Attestations: The high probability of a clinically significant, sudden or life threatening deterioration of the patient's [infectious disease, pulmonary, hematologic, oncologic, vascular] system(s) required my full and direct attention, intervention and personal management. The critical care time is as shown. This time is in addition to time spent performing any reported procedures but includes the following: [x] Data and vital sign review and interpretation [x] Patient assessment, examination and intervention [x] Documentation [x] Medication orders and management Coding Level of Care Code Acute Applications Sales Representative for Libra Cook Diagnoses Hypotension I95.9 Anemia D64.9 Hypoglycemia E16.2 Elevated temperature R50.9 Esophageal cancer C15.9 Cervical compression fracture S12.9XXA Hypokalemia E87.6 COPD (chronic obstructive pulmonary disease) J44.9 Coronary artery disease I25.10
[2021-06-25] MEDS: hydrocortisone 100 mg/2 mL SDV IVP (12:07)
[2021-06-25 14:06] LABS: Magnesium 1.5 mg/dL (1.7-2.3)
[2021-06-25 14:40] LABS: Hematocrit 28.3 % (42.0-52.0); Hemoglobin 8.7 g/dL (11.7-16.6)
[2021-06-25 14:43] LABS: Iron 9 ug/dL (59-158); Percent Saturation 13.2 % (20-50); Total Iron Binding Capacity 68 mcg/dl; Unsaturated Iron Binding 59 ug/dL (112-347)
[2021-06-25] MEDS: dextrose 5%-sod chloride 0.9% 1,000 ML 75 ML IV (14:44)
[2021-06-25] MEDS: lidocaine 1% 5 ML in potassium chloride premix 100 ML 25 ML IV (14:44)
[2021-06-25] MEDS: piperacillin-tazobactam 3.375 GM in sodium chloride 0.9% (plus) 50 ML IV (14:45)
[2021-06-25 15:14] LABS: Ferritin 2447 ng/mL (30-400)
[2021-06-25] MEDS: acetaminophen 325 mg Tablet 650 MG PO (16:17)
--- NOTE | 2021-06-25 17:21 | PC.NURSE ---
Tube feeding diet changed due to no attachment ([facility] extention secur-barbara). said she would bring attachment 06/26/21. Dr. Chavez changed diet to pureed diet, states he consumes this type of diet at home.
[2021-06-25] MEDS: famotidine 20 mg/2 mL INJ IVP (18:13)
[2021-06-25] MEDS: hydrocortisone 100 mg/2 mL SDV 50 MG IVP (18:13)
[2021-06-25] MEDS: vancomycin 1,000 MG in sodium chloride 0.9% 250 ML 250 MG IV (20:04)
[2021-06-25 20:25] LABS: Adenovirus Not Detected (NOT DETECT); Chlamydia Pneumoniae Not Detected (NOT DETECT); Coronavirus 229E,HKU1,NL63,OC4 Not Detected (NOT DETECT); Human Metapneumovirus Not Detected (NOT DETECT); Human Rhinovirus/Enterovirus Not Detected (NOT DETECT); Influenza A Not Detected (NOT DETECT); Influenza A H1 Not Detected (NOT DETECT); Influenza A H1-2009 Not Detected (NOT DETECT); Influenza A H3 Not Detected (NOT DETECT); Influenza B Not Detected (NOT DETECT); Mycoplasma Pneumoniae Not Detected (NOT DETECT); Parainfluenza Virus Type 1 Not Detected (NOT DETECT); Parainfluenza Virus Type 2 Not Detected (NOT DETECT); Parainfluenza Virus Type 3 Not Detected (NOT DETECT); Parainfluenza Virus Type 4 Not Detected (NOT DETECT); Respiratory Syncytial Virus A Not Detected (NOT DETECT); Respiratory Syncytial Virus B Not Detected (NOT DETECT); SARS-COV-2 Not Detected (NOT DETECT)
[2021-06-25 22:04] LABS: Glucose Point of Care 82 mg/dL (70-110)
[2021-06-26] VITALS (20 sets, daily range): BP systolic 86–120; BP diastolic 60–79; PULSE 61–81; RESP 14–21; TEMP 36.4–37.1; O2SAT 92–97
[2021-06-26] MEDS: piperacillin-tazobactam 3.375 GM in sodium chloride 0.9% (plus) 50 ML IV ×4 (00:37→22:07)
[2021-06-26] MEDS: hydrocortisone 100 mg/2 mL SDV 50 MG IVP (02:59)
[2021-06-26] MEDS: dextrose 5%-sod chloride 0.9% 1,000 ML 75 ML IV (03:01)
[2021-06-26] MEDS: acetaminophen 325 mg Tablet 650 MG PO (04:43)
[2021-06-26 05:42] LABS: Basophils # 0.1 10^3/uL (0.0-0.1); Basophils % 0.9 %; Hematocrit 31.7 % (42.0-52.0); Hemoglobin 9.7 g/dL (11.7-16.6); Lymphocytes # 0.7 10^3/uL (0.8-4.8); Lymphocytes % 10.9 %; Mean Corpuscular HGB Conc 30.6 g/dL (30.0-36.0); Mean Corpuscular Hemoglobin 28.4 pg (28.0-34.0); Mean Corpuscular Volume 92.7 fl (80-94); Mean Platelet Volume 11.9 fL (7.4-10.4); Monocytes # 0.6 10^3/uL (0.2-0.9); Monocytes % 9.2 %; Neutrophils # 4.97 10^3/uL (1.8-7.7); Neutrophils % 77.4 %; Nucleated Red Blood Cells % 0 %; Platelet Count 150 10^3/cmm (130-400); Red Blood Count 3.42 10^6/uL (4.1-5.3); Red Cell Distribution Width 19.2 % (12.1-15.1); White Blood Count 6.4 10^3/uL (4.0-10.0)
[2021-06-26 06:03] LABS: Alanine Aminotransferase 13 U/L (0-41); Albumin Level 2.2 g/dL (3.5-5.2); Alkaline Phosphatase 261 IU/L (40-130); Anion Gap 21.8 (5-19); Aspartate Amino Transferase 37 U/L (0-40); Blood Urea Nitrogen 18 mg/dL (6-20); Calcium 6.7 mg/dL (8.5-10.5); Carbon Dioxide 16 mmol/L (22-29); Chloride 106 mmol/L (98-107); Globulin 3.2 g/dL (1.3-4.6); Glomerular Filtration Rate 99.3 mL/min (90-130); Glucose 117 mg/dL (65-115); Osmolality Calculated 293 mOsm/kg (285-295); Potassium 3.8 mmol/L (3.5-5.1); Sodium 140 mmol/L (136-145); Total Bilirubin 0.5 mg/dL (0.15-1.2); Total Protein 5.4 g/dL (6.6-8.7)
[2021-06-26] MEDS: buPROPion XL (24 HR) 150 mg Tablet PO (06:18)
[2021-06-26] MEDS: famotidine 20 mg/2 mL INJ IVP (06:20)
[2021-06-26] MEDS: atorvastatin 40 mg Tablet 20 MG PO (07:21)
[2021-06-26] MEDS: vancomycin 1,000 MG in sodium chloride 0.9% 250 ML 250 MG IV ×2 (07:21→20:10)
--- NOTE | 2021-06-26 08:57 | PC.NURSE ---
Report called to CSU. Patient transferred to CSU via wheelchair accompanied by this nurse and .
--- NOTE | 2021-06-26 09:11 | P.PN_ITS ---
Subjective Subjective: Interval history: Maximino reports he is doing okay this morning. No specific concerns. Medications: Reviewed: Yes Vitals/I&O/Wt Last Vital Signs Temp 97.7 F 06/26/21 08:00 Pulse 69 06/26/21 08:37 Resp 16 06/26/21 08:37 BP 109/67 06/26/21 09:00 Pulse Ox 96 06/26/21 08:37 06/25/21 06/26/21 06/26/21 22:59 06:59 14:59 Intake Total 985 / 2985 971.25 / 3956.25 250 / 250 Output Total 950 / 950 Balance 985 / 2985 21.25 / 3006.25 250 / 250 Weight last 48 hrs Weight 74.389 kg Weight 72.575 kg Weight 72.575 kg Physical Exam Narrative: EXAM NARRATIVE: General exam is no distress, conversant Neck with brace. Cardiovascular regular rate and rhythm without murmur Lungs clear. Diminished breath sounds at the bases Abdomen is soft. Positive bowel sounds. Erythema around G-tube site is improved Extremities no cyanosis clubbing or edema. Urinary Catheter Management^: Bustamante: Cath Placed During This Visit: yes Reason for Continuing Indwelling Catheter: Accurate Measurement of Urinary Output in Critically Ill Patients Urinary Catheter Date of Insertion: 06/25/21 Urinary Catheter Time of Insertion: 08:40 Data : 06/26/21 05:33 06/26/21 05:33 Micro: Microbiology 06/25/21 08:05 Blood Culture - Preliminary Blood NEGATIVE TO DATE 06/25/21 08:22 Blood Culture - Preliminary Blood NEGATIVE TO DATE A&P Assessment and plan (1) Hypotension: Apparently he runs on the low side to start with, although it was markedly low in the ER with a systolic in the 70s. Part of this could be reflective of his anemia, however infection could also be driving this with his history of elevated temperature of 100.4 or adrenal crisis considering long-term steroid maintenance. Currently stable so we will transfer out of ICU Discontinue hydrocortisone, change to prednisone, slightly higher than his home dose Hemoglobin 9.7 following transfusion of 1 unit of blood Status: Acute (2) Anemia: See above Stool Hemoccult pending Anemia panel suggests iron deficiency anemia. Will transfuse iron today in the form of Venofer. Consider repeating dose tomorrow. Status: Acute (3) Hypoglycemia: Continue to monitor glucose closely Hold off on any insulin products Permanently discontinue his oral sulfonylurea Reduce IV fluids containing glucose Status: Acute (4) Elevated temperature: Blood culture pending Empiric antibiotics vancomycin and Zosyn Covid PCR negative If cultures negative at 48 hours consider discontinuation of IV antibiotics Status: Acute (5) Esophageal cancer: Has known esophageal cancer, with worsening quality of life. He is contemplating whether or not he wants to undergo any further chemotherapy. He will discuss this with his oncologist in the future. Status: Acute (6) Cervical compression fracture: Recent fall with compression fracture. He should be wearing his c-collar at all times. He will need follow-up with Dr. Zepeda. He has had radiation treatment to this area in the past secondary to metastatic cancer Status: Acute (7) Hypokalemia: Supplemented Magnesium level was low, and supplemented Status: Acute (8) COPD (chronic obstructive pulmonary disease): DuoNeb as needed. No evidence of exacerbation currently. Status: Acute (9) Coronary artery disease: Continue home medications Status: Acute Additional A&P Information Multiple other medical problems as outlined in past medical history Allow natural SCDs for DVT prophylaxis initially secondary to severe anemia Attestations Medical Necessity Statement*: Hospitalization for close monitoring secondary to anemia, hypotension Coding Level of Care Code Acute Art Teacher for [facility] Joyce Diagnoses Hypotension I95.9 Anemia D64.9 Hypoglycemia E16.2 Elevated temperature R50.9 Esophageal cancer C15.9 Cervical compression fracture S12.9XXA Hypokalemia E87.6 COPD (chronic obstructive pulmonary disease) J44.9 Coronary artery disease I25.10
[2021-06-26] MEDS: iron sucrose 200 MG in sodium chloride 0.9% (100 ml) 100 ML 220 MG IV (10:18)
--- NOTE | 2021-06-26 10:54 | PC.NURSE ---
Tube feeding started at 10mL an hour
[2021-06-26] MEDS: oxyCODONE-APAP 10-325 mg Tablet 1 TAB PEG-TUBE ×3 (11:36→23:16)
[2021-06-26 12:27] LABS: Glucose Point of Care 155 mg/dL (70-110)
[2021-06-26] MEDS: metoclopramide 10 mg Tablet 5 MG PO ×2 (14:46→20:10)
[2021-06-26] MEDS: predniSONE 20 mg Tablet 30 MG PEG-TUBE (17:01)
[2021-06-26] MEDS: famotidine 20 mg Tablet PEG-TUBE (17:02)
[2021-06-26 17:14] LABS: Glucose Point of Care 212 mg/dL (70-110)
--- NOTE | 2021-06-26 20:26 | PC.NURSE ---
i reported low temp 97.5 to nurse
[2021-06-26 21:10] LABS: Glucose Point of Care 201 mg/dL (70-110)
[2021-06-27] VITALS (8 sets, daily range): BP systolic 100–117; BP diastolic 65–77; PULSE 60–81; RESP 16–18; TEMP 36.4–36.8; O2SAT 90–99; BMI 27.3
[2021-06-27 05:20] LABS: Basophils % 0.5 %; Hematocrit 30.3 % (42.0-52.0); Hemoglobin 9.4 g/dL (11.7-16.6); Lymphocytes # 0.8 10^3/uL (0.8-4.8); Lymphocytes % 14.8 %; Mean Corpuscular Hemoglobin 28.1 pg (28.0-34.0); Mean Corpuscular Volume 90.7 fl (80-94); Monocytes # 0.6 10^3/uL (0.2-0.9); Monocytes % 10.2 %; Neutrophils % 72.9 %; Nucleated Red Blood Cells % 0 %; Platelet Count 163 10^3/cmm (130-400); Red Blood Count 3.34 10^6/uL (4.1-5.3); Red Cell Distribution Width 19.3 % (12.1-15.1); White Blood Count 5.5 10^3/uL (4.0-10.0)
[2021-06-27 05:44] LABS: Alanine Aminotransferase 14 U/L (0-41); Albumin Level 2.3 g/dL (3.5-5.2); Alkaline Phosphatase 297 IU/L (40-130); Anion Gap 15.7 (5-19); Aspartate Amino Transferase 27 U/L (0-40); Blood Urea Nitrogen 16 mg/dL (6-20); Calcium 6.6 mg/dL (8.5-10.5); Carbon Dioxide 19 mmol/L (22-29); Chloride 108 mmol/L (98-107); Globulin 3.1 g/dL (1.3-4.6); Glomerular Filtration Rate 115.8 mL/min (90-130); Glucose 194 mg/dL (65-115); Magnesium 1.8 mg/dL (1.7-2.3); Osmolality Calculated 294 mOsm/kg (285-295); Potassium 3.7 mmol/L (3.5-5.1); Sodium 139 mmol/L (136-145); Total Bilirubin 0.3 mg/dL (0.15-1.2); Total Protein 5.4 g/dL (6.6-8.7)
[2021-06-27 05:55] LABS: Slide Review Slide Review Perform
[2021-06-27] MEDS: buPROPion XL (24 HR) 150 mg Tablet PO (06:01)
[2021-06-27] MEDS: piperacillin-tazobactam 3.375 GM in sodium chloride 0.9% (plus) 50 ML IV (06:01)
[2021-06-27 06:47] LABS: Glucose Point of Care 190 mg/dL (70-110)
[2021-06-27] MEDS: predniSONE 20 mg Tablet 30 MG PEG-TUBE (07:43)
[2021-06-27] MEDS: metoclopramide 10 mg Tablet 5 MG PO (07:43)
[2021-06-27] MEDS: famotidine 20 mg Tablet PEG-TUBE (07:43)
[2021-06-27] MEDS: atorvastatin 40 mg Tablet 20 MG PO (07:43)
[2021-06-27] MEDS: oxyCODONE-APAP 10-325 mg Tablet 1 TAB PEG-TUBE ×2 (07:44→12:28)
[2021-06-27] MEDS: acetaminophen 325 mg Tablet 650 MG PO (09:48)
[2021-06-27] MEDS: vancomycin 1,000 MG in sodium chloride 0.9% 250 ML 250 MG IV (09:49)
[2021-06-27] MEDS: ondansetron 2 mg/ML SDV 2 mL 4 MG IVP (11:27)
[2021-06-27 11:50] LABS: Glucose Point of Care 162 mg/dL (70-110)
--- NOTE | 2021-06-27 13:54 | P.DS_ITS ---
Discharge Providers Date of Admission: 06/25/21 11:23 Date of Discharge: June 27, 2021 Attending Provider at Admission: Yazan Chavez MD Attending Provider at Discharge: Mamta Dooley MD Primary Care Provider: DAVID Davies Diagnoses at Discharge Discharge Diagnosis (1) Hypotension: Status: Resolved (2) Anemia: Status: Acute (3) Hypoglycemia: Status: Resolved (4) Elevated temperature: Status: Resolved (5) Esophageal cancer: Status: Inactive (6) Cervical compression fracture: Status: Inactive (7) Hypokalemia: Status: Resolved (8) COPD (chronic obstructive pulmonary disease): Status: Acute (9) Coronary artery disease: Status: Acute Reason for Visit Reason for Visit: [facility] Hospital Course Hospital Course HPI as per Dr. Chavez Maximino Sandoval is a 56 year old male who presented to the emergency department with lethargy, glucose in the 50s. Significant other believes he may have taken some of his medication this morning but not all. She does not believe he had taken his prednisone. He has had no vomiting. He was recently in the hospital from June 14- with neutropenia, and treated with broad- spectrum antibiotics. There was significant leaking around his PEG tube site and cellulitis was suspected as well. Significant other reports he had an elevated temperature of 100.4 last night. She reports he has been vaccinated with Materna, even receiving his booster for Covid. She reports he tolerates some feedings of Glucerna through his PEG tube but usually does a small amount. He will take other feedings by mouth, and a pur?ed diet. She has not seen any blood in stool, blood from the PEG tube, and he has not had any nosebleeds. He is currently being treated for esophageal cancer by Dr. Caldwell. He is in a c- collar from a fall on June 25 he was found to have an indeterminate compression fracture of C5. The emergency department physician has alerted me Dr. Zepeda has reviewed this previously and wants the c-collar left in place until follow-up. He has a known metastatic lesion at C5 by MRI on October 21. This was treated with radiation in November 2020. In the emergency department he was given hydrocortisone, and IV fluids. 1 unit of blood, transfusion, was initiated. Course Patient was admitted for hypotension and anemia. Fecal occult blood was ordered but he was diagnosed with iron deficiency anemia. Also his PEG tube continue to leak. Tube feeds were started and he was given a bag to cover over the PEG site. He was cared for by Dr. Chavez and I only saw the patient on the day of discharge. Empiric antibiotics were added on admission. Blood cultures remain negative and therefore antibiotics were discontinued. Patient was also diagnosed with a cervical compression fracture which was diagnosed prior to this admission. He was advised to keep wearing his c-collar at all times and follow- up with Dr. Zepeda. Patient's hemoglobin was stable on day of discharge and he was given a follow-up CBC to do a few days. Patient also received an iron transfusion. Also on admission he was hypoglycemic and therefore decision was made to permanently discontinue his sulfonylurea. Patient was discharged home in stable condition to follow-up with his PCP. Physical Exam Narrative: EXAM NARRATIVE: General exam is no distress, conversant Neck with brace. Cardiovascular regular rate and rhythm without murmur Lungs clear. Diminished breath sounds at the bases Abdomen is soft. Positive bowel sounds. Erythema around G-tube site is improved Extremities no cyanosis clubbing or edema. Urinary Catheter Management^: Bustamante: Cath Placed During This Visit: yes, but has since been removed by the nurse Reason for Continuing Indwelling Catheter: Decision to DC Catheter Urinary Catheter Date of Insertion: 06/25/21 Urinary Catheter Time of Insertion: 08:40 Date Urinary Catheter Removed: 06/26/21 Time Urinary Catheter Discontinued: 17:18 Discharge Data Data Completed and Pending: Completed Studies During Hospitalization Category Date Time Status XR chest 1V [place] [id number] Stat Exams 06/25/21 07:47 Completed Pending at discharge Category Date Time Status Blood Culture Sta t Lab 06/25/21 08:05 Results Gastricult Occult BLD Stat Lab 06/25/21 09:04 Ordered Immunochemical Fe neetu OCB Routine Lab 06/25/21 09:44 Uncollected Labs from last 24 hours 06/27/21 06/27/21 06/27/21 11:20 07:00 06:42 WBC RBC Hgb Hct MCV MCH MCHC RDW Plt Count MPV Neut % (Auto) Lymph % (Auto) [place] % (Auto) Eos % (Auto) Baso % (Auto) Neut # (Auto) Lymph # (Auto) [place] # (Auto) Eos # (Auto) Baso # (Auto) Nucleated RBC % (a uto) Nucleated RBCs # Sodium Potassium Chloride Carbon Dioxide Anion Gap BUN Creatinine GFR Calculation Glucose POC Glucose 162 H 190 H Calculated Osmolal ity Calcium Magnesium Total Bilirubin AST ALT Alkaline Phosphata se Total Protein Albumin Globulin Vancomycin Trough 13.0 06/27/21 06/27/21 06/26/21 04:49 04:49 20:41 WBC 5.5 RBC 3.34 L Hgb 9.4 L Hct 30.3 L MCV 90.7 MCH 28.1 MCHC 31.0 RDW 19.3 H Plt Count 163 MPV 12.0 H Neut % (Auto) 72.9 Lymph % (Auto) 14.8 Kingman % (Auto) 10.2 Eos % (Auto) 0.0 Baso % (Auto) 0.5 Neut # (Auto) 4.00 Lymph # (Auto) 0.8 Kingman # (Auto) 0.6 Eos # (Auto) 0.0 Baso # (Auto) 0.0 Nucleated RBC % (a uto) 0 Nucleated RBCs # 0.0 Sodium 139 Potassium 3.7 Chloride 108 H Carbon Dioxide 19 L Anion Gap 15.7 BUN 16 Creatinine 0.7 GFR Calculation 115.8 Glucose 194 H POC Glucose 201 H Calculated Osmolal ity 294 Calcium 6.6 L Magnesium 1.8 Total Bilirubin 0.3 AST 27 ALT 14 Alkaline Phosphata se 297 H Total Protein 5.4 L Albumin 2.3 L Globulin 3.1 Vancomycin Trough 06/26/21 17:08 WBC RBC Hgb Hct MCV MCH MCHC RDW Plt Count MPV Neut % (Auto) Lymph % (Auto) [place] % (Auto) Eos % (Auto) Baso % (Auto) Neut # (Auto) Lymph # (Auto) Kingman # (Auto) Eos # (Auto) Baso # (Auto) Nucleated RBC % (a uto) Nucleated RBCs # Sodium Potassium Chloride Carbon Dioxide Anion Gap BUN Creatinine GFR Calculation Glucose POC Glucose 212 H Calculated Osmolal ity Calcium Magnesium Total Bilirubin AST ALT Alkaline Phosphata se Total Protein Albumin Globulin Vancomycin Trough Vitals: Last Vital Signs Temp 98.3 F 06/27/21 11:20 Pulse 60 06/27/21 11:20 Resp 18 06/27/21 12:28 BP 112/75 06/27/21 11:20 Pulse Ox 98 06/27/21 12:28 Discharge Plan Discharge Patient Disposition: Home Condition: Stable Prescriptions: New ferrous sulfate 300 mg (60 mg iron)/5 mL liquid 60 mg PO DAILY 30 Days Qty: 120 RF: 1 Continued metoclopramide HCl [Reglan] 5 mg tablet 5 mg PO TID 30 Days Qty: 90 RF: 2 nitroglycerin 0.4 mg tablet, sublingual See Rx Instructions .ROUTE .COMPLEX Qty: 25 RF: 0 folic acid 1 mg tablet 1 mg PO DAILY@0830 RF: 0 ondansetron HCl 4 mg tablet 4 mg PO Q8H PRN (Reason: NAUSEA/VOMITING) RF: 0 prochlorperazine maleate 10 mg tablet 10 mg PO Q4H PRN (Reason: NAUSEA/VOMITING) RF: 0 Humulin R Regular U-100 Insuln 100 unit/mL solution See Rx Instructions .ROUTE .COMPLEX RF: 0 pantoprazole 40 mg tablet,delayed release (DR/EC) 40 mg PO DAILY RF: 0 silver sulfadiazine [Silvadene] 1 % cream 1 applic topical BID PRN (Reason: wound healing) Qty: 50 RF: 0 prednisone 20 mg tablet 30 mg PO BID RF: 0 amino acids-whey prot conc,iso 20 gram-110 kcal/28 gram Powder See Rx Instructions .ROUTE .COMPLEX RF: 0 magnesium 1 tab PO QAM RF: 0 sertraline [Zoloft] 100 mg tablet 100 mg PO QAM RF: 0 nystatin 100,000 unit/gram cream See Rx Instructions .ROUTE .COMPLEX RF: 0 bupropion HCl 150 mg tablet extended release 24 hr 150 mg PO QAM RF: 0 tizanidine 4 mg capsule 4 mg PO Q12H RF: 0 Held dexamethasone 4 mg tablet See Rx Instructions .ROUTE .COMPLEX RF: 0 Hold Instructions: see oncology lorazepam 1 mg tablet 0.5 - 1 mg PO TID PRN (Reason: Anxiety) RF: 0 Hold Instructions: see pcp Discontinued glipizide 5 mg tablet extended release 24hr 5 mg PO QAM RF: 0 No Action (DME) Wheelchair See Rx Instructions .Route .MEDSUPPLY Qty: 1 RF: 0 (DME) Stomahesive Skin Barrier 1 07/05 misc See Rx Instructions .Route Qty: 10 RF: 0 (DME) Ostomy Appliance Belt Misc See Rx Instructions .Route Qty: 1 RF: 0 (DME) ostomy kit Kit See Rx Instructions .Route Qty: 1 RF: 0 fentanyl 25 mcg/hr patch 72 hour 1 patch transdermal Q72H Qty: 5 RF: 0 oxycodone 5 mg tablet 5 mg PO Q6H PRN (Reason: pain) Qty: 20 RF: 0 ketoconazole 2 % cream 1 applic TOPICAL TID RF: 0 lovastatin 20 mg tablet 20 mg PO BEDTIME RF: 0 Discharge Orders: Discharge Order (Routine); Ordered 06/27/21 Ordered By: Mamta Dooley Other Ambulatory Orders: Complete Blood Count w/Auto (Routine) Timeframe: [id number] Location: Determined by Patient Ordered By: Mamta Dooley Referrals: Huy Zepeda DO [Physician] - 1 week (Cervical fracture) Stephany Villalpando FNP-C [Primary Care Provider] - 1 week Patient Instructions: Prednisone (By mouth), Coronary Artery Disease (DC), How to Use and Care for Your PEG Tube (DC), Hypokalemia (DC), COPD (Chronic Obstructive Pulmonary Disease) (DC), Opioid Safety Activity Restrictions/Additional Instructions: Take prednisone 30 mg twice a day for 3 more days and after that go back to taking 20 mg twice a day. See your primary care within a week of discharge. You must also wear your cervical collar for your cervical fracture. Discharge Attestations Time Spent in Discharge Care*: less than 30 min Status at Discharge: Cognitive status at discharge: cognitively intact , Behavioral status at discharge: cooperative , Quality Metrics Clinical Quality Measures During this hospital stay, did patient experience: None Coding Level of Care Code Acute Chg FW DC note Diagnoses Hypotension I95.9 Anemia D64.9 Hypoglycemia E16.2 Elevated temperature R50.9 Esophageal cancer C15.9 Cervical compression fracture S12.9XXA Hypokalemia E87.6 COPD (chronic obstructive pulmonary disease) J44.9 Coronary artery disease I25.10
== END 2021-06-27 14:37 | disposition home or self-care (01) | DRG 812 ==
LOC: ER 10:54 → ICU 13:41 → MEDSURG 06-26 09:35
PROVIDERS: Admitting Provider Internal Medicine; Emergency Provider Family Medicine; PCP Nurse Practitioner; Visit Provider Internal Medicine
DX: D50.9 Iron deficiency anemia, unspecified (principal); C15.9 Malignant neoplasm of esophagus, unspecified; C79.51 Secondary malignant neoplasm of bone; T85.598A Other mechanical complication of other gastrointestinal prosthetic devices, implants and grafts, initial encounter; I95.9 Hypotension, unspecified; Y73.1 Therapeutic (nonsurgical) and rehabilitative gastroenterology and urology devices associated with adverse incidents; L98.8 Other specified disorders of the skin and subcutaneous tissue; E87.6 Hypokalemia; E16.2 Hypoglycemia, unspecified; I25.10 Atherosclerotic heart disease of native coronary artery without angina pectoris; S12.400D Unspecified displaced fracture of fifth cervical vertebra, subsequent encounter for fracture with routine healing; W19.XXXD Unspecified fall, subsequent encounter; J44.9 Chronic obstructive pulmonary disease, unspecified; R50.9 Fever, unspecified; E11.22 Type 2 diabetes mellitus with diabetic chronic kidney disease; I12.9 Hypertensive chronic kidney disease with stage 1 through stage 4 chronic kidney disease, or unspecified chronic kidney disease; N18.9 Chronic kidney disease, unspecified; E78.5 Hyperlipidemia, unspecified; K21.9 Gastro-esophageal reflux disease without esophagitis; F41.1 Generalized anxiety disorder; I25.2 Old myocardial infarction; M06.9 Rheumatoid arthritis, unspecified; Z66 Do not resuscitate; Z95.5 Presence of coronary angioplasty implant and graft; Z95.828 Presence of other vascular implants and grafts; Z79.4 Long term (current) use of insulin; Z85.6 Personal history of leukemia; Z93.1 Gastrostomy status; Z92.3 Personal history of irradiation; Z79.52 Long term (current) use of systemic steroids; Z79.899 Other long term (current) drug therapy
CPT/HCPCS: 36415; 36416; 36430; 36600; 51702; 70450; 71045; 72125; 72131; 80051; 80053; 80202; 81003; 82330; 82728; 82805; 82962; 83540; 83550; 83605; 83690; 83735; 84484; 85007; 85014; 85018; 85025; 86850; 86900; 86920; 87040; 87635; 93005; 96361; 96374; 97116; 97161; 97760; 99284; 99285; J1642; J1720; J1756; J2270; J2405; J2543; J3370; J3480; J3490; J7030; J7050; J7512; J8597; L0174; P9016

== ENCOUNTER 2021-06-29 10:28 | Emergency (ER) | payer MEDICARE, SELFPAY ==
[2021-06-29 10:33] VITALS: BP 104/59; PULSE 61; RESP 18; TEMP 37.1; O2SAT 95; BMI 26.6
--- NOTE | 2021-06-29 10:34 | ED_ITS ---
HPI - General Adult General: Chief complaint: General Medical Stated complaint: BACK PAIN/ CHEST PAIN/ MULTIPLE FALLS Time Seen by Provider: 06/29/21 10:33 History of Present Illness: HPI narrative: 48-year-old male with a known history of esophageal CA with significant distant mets including to his spine. He has chronic back and neck pain he has recent pathological fractures particularly to the neck he has been placed in a Morris J collar had follow-up with Dr. Zepeda this week. There was no evidence of neural impingement on imaging. He has had multiple returns to the emergency room related to falls and is persistent back neck and chest pain. His main complaint today is the pain. He is also intermittently had chest pain which in the past has been related to his esophageal cancer. Onset (ago): minute(s) Location: neck Radiation: non-radiation Quality: burning and sharp Associated symptoms: Reports weakness; Deny chest pain, confusion, cough, diaphoresis, decreased appetite, dyspnea, fevers/chills, headache(s), malaise, nausea, rash, palpitations, seizures, short of breath, syncope or vomiting Treatments prior to arrival: none Review of Systems Const: Denies: malaise or diaphoresis Card: Denies: chest pain, palpitations or syncope Resp: Denies: dyspnea GI: Denies: nausea or vomiting Skin/Breast: Denies: rash Neuro: Denies: headache(s) or confusion PFS ED PFSH: Medical History 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 Anemia Atypical lymphocytosis Chronic kidney disease COPD (chronic obstructive pulmonary disease) Coronary artery disease Diabetes mellitus Dilutional hyponatremia (~07/2019) Dyslipidemia Dysphagia Esophageal adenocarcinoma Gastro-esophageal reflux disease without esophagitis Generalized anxiety disorder Hypertension Immunocompromised Impaired gait and mobility Lumbago Myocardial infarct Rheumatoid arthritis Rheumatoid arthritis SIRS (systemic inflammatory response syndrome) Surgical History H/O heart artery stent History of colonoscopy History of endoscopy (04/13/21) 08/14/20 - Esophageal mass Port-A-Cath in place (09/29/20) Status post insertion of percutaneous endoscopic gastrostomy (PEG) tube (11/12/20) Family History Family/Other Cancer Family members in general Diabetes Family members in general Hypothyroid Family members in general Social History Quit status (tobacco): quit date established Second hand smoke exposure: No Smoking risk assessment/counseling performed?: No Alcohol intake: never Desire information about alcohol rehabilitation?: No Counseling given: No Desire information about substance/drug rehabilitation?: No Counseling given: No Caregiver/support person: No Lives independently: Yes Household members: significant other Marital status: Single History of recent travel: No Current gender identity: Male Physical Exam Const: COMMON NORMALS: no acute distress GENERAL APPEARANCE: cooperative and comfortable ORIENTATION/CONSCIOUSNESS: Yes awake, Yes oriented to person, Yes oriented to place and Yes oriented to time HENMT: COMMON NORMALS: normocephalic, atraumatic and hearing grossly normal bilaterally HEAD & SCALP: normocephalic and atraumatic Neck/C-Spine: COMMON NORMALS: no JVD Resp: COMMON NORMALS: normal respiratory effort, No retractions, No use of accessory muscles and clear to auscultation bilaterally AUSCULTATION: clear to auscultation bilaterally Cardio: COMMON NORMALS: no JVD, regular rate, regular rhythm and No murmurs present (Cardio) RATE: regular rate RHYTHM: regular rhythm GI: COMMON NORMALS: Soft to palpation and No hepatosplenomegaly present AUSCULTATION: Yes normoactive bowel sounds PALPATION: Yes Soft to palpation, No Tenderness to palpation present (GI), No Guarding due to palpation present (GI) and Yes No hepatosplenomegaly present Extremity: COMMON NORMALS: normal to inspection, capillary refill normal, no clubbing, cyanosis or edema, no calf tenderness and no pedal edema Neuro: SENSORIUM/ORIENTATION: Yes oriented to person, Yes oriented to place and Yes oriented to time Skin: COMMON NORMALS: no rashes or lesions noted GENERAL SKIN EXAM: no rashes or lesions noted Course Vital Signs: Vital signs: Vital Signs Temperature 98.7 F 06/29/21 10:33 Pulse Rate 61 06/29/21 13:37 Respiratory Rate 18 06/29/21 10:33 Blood Pressure 120/77 06/29/21 13:37 Pulse Oximetry 93 06/29/21 13:37 MDM - General Adult MDM Narrative: Medical decision making narrative: 56-year-old male with significant back and neck pain due to his esophageal cancer with mets is been seen for this multiple times he does intermittently get some chest discomfort is not been known to have any heart disease related to this at all. He is comfortable now this appears to be more his back and neck pain from his biopsy and the compression fracture. He no longer has this cervical collar he was not wearing it because it was uncomfortable and then misplaced. Talk to Dr. Ramachandran patient has been here multiple times for not getting adequate pain control for him which is the main reason he seems to be coming back. With Dr. Ramachandran's permission we have going to change him to fentanyl 25 mcg patches, and then decrease his oxycodone to 5 mg tablets 1 every 6 to 8 hours as needed for breakthrough pain. Dr. Ramachandran will see him later this week and assume further management of his pain control medications. Discussed this with the patient and his stressed the importance of watching closely with the breakthrough medications and not overusing or using more often than has been prescribed. Initially I asked him to only use 1 every 8 hours of the oxycodone for breakthrough until they see how the fentanyl patches affect him. Lab Data: Labs: Lab Results 06/29/21 06/29/21 06/29/21 10:41 10:41 10:41 WBC 12.0 10^3/uL H 10 ^3/uL (4.0-10.0) RBC 3.57 10^6/uL L 10 ^6/uL (4.1-5.3) Hgb 10.3 g/dL L g/dL (11.7-16.6) Hct 33.3 % L % (42.0-52.0) MCV 93.3 fl fl (80-94) MCH 28.9 pg pg (28.0-34.0) MCHC 30.9 g/dL g/dL (30.0-36.0) RDW 18.9 % H % (12.1-15.1) Plt Count 203 10^3/cmm 10^3 /cmm (130-400) MPV 12.2 fL H fL (7.4-10.4) Neut % (Auto) 78.8 % % Lymph % (Auto) 4.3 % % Dickson % (Auto) 12.6 % % Eos % (Auto) 0.0 % % Baso % (Auto) 0.4 % % Neut # (Auto) 9.46 10^3/uL H 10 ^3/uL (1.8-7.7) Lymph # (Auto) 0.5 10^3/uL L 10^ 3/uL (0.8-4.8) Dickson # (Auto) 1.5 10^3/uL H 10^ 3/uL (0.2-0.9) Eos # (Auto) 0.0 10^3/uL 10^3/ uL (0.0-0.8) Baso # (Auto) 0.1 10^3/uL 10^3/ uL (0.0-0.1) Nucleated RBC % (a uto) 0.3 % % Nucleated RBCs # 0.0 /100WBC /100W BC Sodium 140 mmol/L mmol/L (136-145) Potassium 3.2 mmol/L L mmol /L (3.5-5.1) Chloride 107 mmol/L mmol/L (98-107) Carbon Dioxide 25 mmol/L mmol/L (22-29) Anion Gap 11.2 (5-19) BUN 12 mg/dL mg/dL (6-20) Creatinine 0.7 mg/dL mg/dL (0.7-1.2) GFR Calculation 115.8 mL/min mL/m in (90-130) Glucose 65 mg/dL mg/dL (65-115) Calculated Osmolal ity 288 mOsm/kg mOsm/ kg (285-295) Calcium 7.4 mg/dL L mg/dL (8.5-10.5) Total Bilirubin 0.5 mg/dL mg/dL (0.15-1.2) AST 34 U/L U/L (0-40) ALT 18 U/L U/L (0-41) Alkaline Phosphata se 307 IU/L H IU/L (40-130) Troponin T Baselin e 26 ng/L H ng/L (0-15) Troponin T 120 Min [place] Troponin T Total Protein 5.7 g/dL L g/dL (6.6-8.7) Albumin 2.6 g/dL L g/dL (3.5-5.2) Globulin 3.1 g/dL g/dL (1.3-4.6) 06/29/21 12:29 WBC RBC Hgb Hct MCV MCH MCHC RDW Plt Count MPV Neut % (Auto) Lymph % (Auto) Dickson % (Auto) Eos % (Auto) Baso % (Auto) Neut # (Auto) Lymph # (Auto) Dickson # (Auto) Eos # (Auto) Baso # (Auto) Nucleated RBC % (a uto) Nucleated RBCs # Sodium Potassium Chloride Carbon Dioxide Anion Gap BUN Creatinine GFR Calculation Glucose Calculated Osmolal ity Calcium Total Bilirubin AST ALT Alkaline Phosphata se Troponin T Baselin e Troponin T 120 Min [place] 25.93 ng/L H ng/L (0-15) Delta Troponin T -0.07 ABS# L ABS# (0-10) Total Protein Albumin Globulin Discharge Plan Discharge Patient Disposition: Home Clinical Impression: Cervical compression fracture, Esophageal cancer, Lumbar back pain Condition: Stable Prescriptions: New fentanyl 25 mcg/hr patch 72 hour 1 patch transdermal Q72H Qty: 5 RF: 0 oxycodone 5 mg tablet 5 mg PO Q6H PRN (Reason: pain) Qty: 20 RF: 0 No Action (DME) Wheelchair See Rx Instructions .Route .MEDSUPPLY Qty: 1 RF: 0 lovastatin 20 mg tablet 20 mg PO DAILY@0830 Qty: 90 RF: 1 metoclopramide HCl [Reglan] 5 mg tablet 5 mg PO TID 30 Days Qty: 90 RF: 2 nitroglycerin 0.4 mg tablet, sublingual See Rx Instructions .ROUTE .COMPLEX Qty: 25 RF: 0 folic acid 1 mg tablet 1 mg PO DAILY@0830 RF: 0 ondansetron HCl 4 mg tablet 4 mg PO Q8H PRN (Reason: NAUSEA/VOMITING) RF: 0 prochlorperazine maleate 10 mg tablet 10 mg PO Q4H PRN (Reason: NAUSEA/VOMITING) RF: 0 dexamethasone 4 mg tablet See Rx Instructions .ROUTE .COMPLEX RF: 0 Hold Instructions: see oncology Humulin R Regular U-100 Insuln 100 unit/mL solution See Rx Instructions .ROUTE .COMPLEX RF: 0 lorazepam 1 mg tablet 0.5 - 1 mg PO TID PRN (Reason: Anxiety) RF: 0 Hold Instructions: see pcp pantoprazole 40 mg tablet,delayed release (DR/EC) 40 mg PO DAILY RF: 0 silver sulfadiazine [Silvadene] 1 % cream 1 applic topical BID PRN (Reason: wound healing) Qty: 50 RF: 0 bacitracin zinc 500 unit/gram Ointment 1 applic TOPICAL BID RF: 0 oxycodone-acetaminophen 10-325 mg tablet 1 - 2 tab PO Q4H PRN (Reason: Pain) RF: 0 prednisone 20 mg tablet 20 mg PO BID RF: 0 amino acids-whey prot conc,iso 20 gram-110 kcal/28 gram Powder See Rx Instructions .ROUTE .COMPLEX RF: 0 magnesium 1 tab PO QAM RF: 0 sertraline [Zoloft] 100 mg tablet 100 mg PO QAM RF: 0 nystatin 100,000 unit/gram cream See Rx Instructions .ROUTE .COMPLEX RF: 0 bupropion HCl 150 mg tablet extended release 24 hr 150 mg PO QAM RF: 0 tizanidine 4 mg capsule 4 mg PO Q12H RF: 0 (DME) Stomahesive Skin Barrier 1 1/2 misc See Rx Instructions .Route Qty: 10 RF: 0 (DME) Ostomy Appliance Belt Misc See Rx Instructions .Route Qty: 1 RF: 0 (DME) ostomy kit Kit See Rx Instructions .Route Qty: 1 RF: 0 prednisone 20 mg Tablet 30 mg peg-tube BID 3 Days Qty: 9 RF: 0 ferrous sulfate 300 mg (60 mg iron)/5 mL liquid 60 mg PO DAILY 30 Days Qty: 120 RF: 1 Discharge Orders: Discharge ED (Routine); Ordered 06/29/21 Ordered By: Marcial Pierre Referrals: Stephany Villalpando, WAGE AND SALARY ADMINISTRATOR-C [Primary Care Provider] - Discharge Diet: Usual diet Discharge Activity: Limit activity as instructed Patient Instructions: Opioid Safety Coding Level of Care Code ED Manufacturing Sr Engineer for Chg Fwd Exam Comprehensive
--- NOTE | 2021-06-29 10:49 | ECG_ITS ---
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 Measurements Intervals [place] Rate: 59 P: 175 AR: 185 QRS: 163 QRSD: 98 T: 155 QT: 418 QTc: 414 Interpretive Statements ECTOPIC ATRIAL BRADYCARDIA POSSIBLE RIGHT VENTRICULAR HYPERTROPHY [SOME/ALL OF: PROMINENT R IN V1, LATE TRANSITION, RAD, SYEDA, SSS] Compared to ECG 06/25/2021 08:24:10 Bradycardia, nonsinus now present Sinus rhythm no longer present T-wave abnormality no longer present Electronically Signed On 06-29-2021 15:24:08 ELECTRIC SOLDERER by Vidhya Reilly M.D. [id number]
[2021-06-29 10:59] VITALS: BP 119/79; PULSE 63; O2SAT 98
[2021-06-29] MEDS: morphine 4 mg/mL SDV 1 mL IVP (11:01)
[2021-06-29 11:16] LABS: Troponin(5th) Baseline 26 ng/L (0-15)
--- NOTE | 2021-06-29 12:49 | ECG_ITS ---
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 Measurements Intervals [place] Rate: 67 P: 16 AL: 191 QRS: 15 QRSD: 101 T: 41 QT: 422 QTc: 446 Interpretive Statements SINUS RHYTHM Compared to ECG 06/29/2021 11:22:03 Bradycardia, nonsinus no longer present Electronically Signed On 06-29-2021 16:51:11 GROUND CREW SUPERVISOR by Vidhya Reilly M.D. [id number]
[2021-06-29 13:14] LABS: Troponin 5 2HR 25.93 ng/L (0-15)
[2021-06-29 13:18] LABS: Troponin 5 2HR Delta -0.07 ABS# (0-10)
[2021-06-29 13:25] LABS: Basophils # 0.1 10^3/uL (0.0-0.1); Basophils % 0.4 %; Hematocrit 33.3 % (42.0-52.0); Hemoglobin 10.3 g/dL (11.7-16.6); Lymphocytes # 0.5 10^3/uL (0.8-4.8); Lymphocytes % 4.3 %; Mean Corpuscular HGB Conc 30.9 g/dL (30.0-36.0); Mean Corpuscular Hemoglobin 28.9 pg (28.0-34.0); Mean Corpuscular Volume 93.3 fl (80-94); Mean Platelet Volume 12.2 fL (7.4-10.4); Monocytes # 1.5 10^3/uL (0.2-0.9); Monocytes % 12.6 %; Neutrophils # 9.46 10^3/uL (1.8-7.7); Neutrophils % 78.8 %; Nucleated Red Blood Cells % 0.3 %; Platelet Count 203 10^3/cmm (130-400); Red Blood Count 3.57 10^6/uL (4.1-5.3); Red Cell Distribution Width 18.9 % (12.1-15.1)
[2021-06-29 13:36] LABS: Alanine Aminotransferase 18 U/L (0-41); Albumin Level 2.6 g/dL (3.5-5.2); Alkaline Phosphatase 307 IU/L (40-130); Anion Gap 11.2 (5-19); Aspartate Amino Transferase 34 U/L (0-40); Blood Urea Nitrogen 12 mg/dL (6-20); Calcium 7.4 mg/dL (8.5-10.5); Carbon Dioxide 25 mmol/L (22-29); Chloride 107 mmol/L (98-107); Globulin 3.1 g/dL (1.3-4.6); Glomerular Filtration Rate 115.8 mL/min (90-130); Glucose 65 mg/dL (65-115); Osmolality Calculated 288 mOsm/kg (285-295); Potassium 3.2 mmol/L (3.5-5.1); Sodium 140 mmol/L (136-145); Total Bilirubin 0.5 mg/dL (0.15-1.2); Total Protein 5.7 g/dL (6.6-8.7)
[2021-06-29 13:37] VITALS: BP 120/77; PULSE 61; O2SAT 93
--- NOTE | 2021-06-29 14:59 | DCPLANNER ---
commodities manager was asked to see patient due frequent visits to the ER. commodities manager spoke with patient about following up with his primary care physician. commodities manager was asked to refer patient to ortho. commodities manager called the ortho clinic, spoke with Leora, gave clinic patients information. commodities manager was told that patients information would be printed and reviewed. Clinic will call patient with appointment information. commodities manager asked patient if he had home health services in the home, patient stated that he did at one time, but would like for services to be started again. commodities manager called [facility], spoke with Roddy, asking if patient could be put back on services. commodities manager was told that patient could be put back on services. commodities manager informed patient and ED physician that patient being on home health could be restarted. That wrapper caser made a referral for patient to Dr. Zepeda at [facility].
[2021-06-29 15:15] VITALS: BP 118/77; PULSE 69; RESP 19; O2SAT 91
--- NOTE | 2021-06-30 07:25 | DCPLANNER ---
Patient has a follow up appointment scheduled for , July 02, 2021 at 11:[address] Zepeda at [facility]. Clinic will call patient with appointment information.
--- NOTE | 2021-07-02 15:04 | DCPLANNER ---
Patient had an appointment scheduled with ortho - appointment cancelled due to patient in hospital.
== END 2021-06-29 15:54 | disposition home or self-care (01) ==
PROVIDERS: Emergency Provider Family Medicine; PCP Nurse Practitioner
DX: M54.50 Low back pain, unspecified (principal); C15.9 Malignant neoplasm of esophagus, unspecified; M84.48XA Pathological fracture, other site, initial encounter for fracture; Z79.4 Long term (current) use of insulin; J44.9 Chronic obstructive pulmonary disease, unspecified; I25.10 Atherosclerotic heart disease of native coronary artery without angina pectoris; E11.9 Type 2 diabetes mellitus without complications; E78.5 Hyperlipidemia, unspecified; I10 Essential (primary) hypertension; I25.2 Old myocardial infarction
CPT/HCPCS: 36415; 80053; 84484; 85025; 93005; 96374; 99284; J2270

== ENCOUNTER 2021-07-01 16:40 | Observation (INO) | payer MEDICARE, SELFPAY ==
[2021-07-01 17:04] VITALS: BP 96/57; PULSE 74; RESP 16; TEMP 36.6; O2SAT 96; BMI 22.7
[2021-07-01 17:23] VITALS: BP 114/78; PULSE 66; RESP 18; O2SAT 95
[2021-07-01 17:27] LABS: Glucose Point of Care 54 mg/dL (70-110)
--- NOTE | 2021-07-01 17:37 | PC.NURSE ---
Has a Feeding tube that leaks around the tube. Skin is red , inflamed and tender.
[2021-07-01 17:38] VITALS: BP 114/78; PULSE 99; RESP 18; O2SAT 94
[2021-07-01] MEDS: dextrose 50% syringe 50 mL 25 ML IVP (17:42)
[2021-07-01 18:03] LABS: Glucose Point of Care 96 mg/dL (70-110)
[2021-07-01 18:11] LABS: Basophils % 0.3 %; Hematocrit 35.9 % (42.0-52.0); Lymphocytes # 0.4 10^3/uL (0.8-4.8); Lymphocytes % 5.5 %; Mean Corpuscular HGB Conc 30.6 g/dL (30.0-36.0); Mean Corpuscular Hemoglobin 28.5 pg (28.0-34.0); Mean Platelet Volume 12.7 fL (7.4-10.4); Monocytes # 0.6 10^3/uL (0.2-0.9); Neutrophils # 6.07 10^3/uL (1.8-7.7); Neutrophils % 82.1 %; Nucleated Red Blood Cells % 0 %; Platelet Count 233 10^3/cmm (130-400); Red Blood Count 3.86 10^6/uL (4.1-5.3); Red Cell Distribution Width 19.8 % (12.1-15.1); White Blood Count 7.4 10^3/uL (4.0-10.0)
[2021-07-01 18:34] LABS: Alanine Aminotransferase 22 U/L (0-41); Albumin Level 2.6 g/dL (3.5-5.2); Alkaline Phosphatase 482 IU/L (40-130); Anion Gap 17.5 (5-19); Aspartate Amino Transferase 53 U/L (0-40); Blood Urea Nitrogen 10 mg/dL (6-20); Calcium 7.6 mg/dL (8.5-10.5); Carbon Dioxide 23 mmol/L (22-29); Chloride 103 mmol/L (98-107); Globulin 3.6 g/dL (1.3-4.6); Glomerular Filtration Rate 115.8 mL/min (90-130); Osmolality Calculated 286 mOsm/kg (285-295); Potassium 3.5 mmol/L (3.5-5.1); Sodium 140 mmol/L (136-145); Total Bilirubin 0.5 mg/dL (0.15-1.2); Total Protein 6.2 g/dL (6.6-8.7)
--- NOTE | 2021-07-01 18:35 | W.ED.GENADLT ---
HPI - General Adult General: Chief complaint: General Medical Stated complaint: LEAKING FEEDING TUBE/LOW BLOOD SUGAR Time Seen by Provider: 07/01/21 17:22 Source: patient Mode of arrival: ambulatory Limitations: no limitations History of Present Illness: HPI narrative: 56-year-old male is here with weakness states his glucose have been running low glucose here is 38 he has been having lethargy he is awake now answering my questions. Patient has a history of esophageal neoplasm does tube feedings due to that. He states that he is on a sulfonylurea glimepiride he believes. He denies any headache denies any chest pain no diarrhea Associated symptoms: Deny chest pain, dyspnea, nausea, rash or vomiting Review of Systems Const: Denies: fever(s), chills, body aches or change in appetite Eyes: Denies: blurry vision or eye discomfort ENMT: Denies: throat pain or dental pain Card: Denies: chest pain Resp: Denies: dyspnea GI: Denies: abdominal pain, nausea, vomiting or diarrhea : Denies: dysuria Musc: Denies: neck pain or back pain Skin/Breast: Denies: rash Neuro: Reports: weakness in extremities Psych: Denies: depression Kb/Lymph: Denies: easy bruising All/Imm: Denies: urticaria PFSH ED PFSH: Medical History 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 Anemia Atypical lymphocytosis Chronic kidney disease COPD (chronic obstructive pulmonary disease) Coronary artery disease Diabetes mellitus Dilutional hyponatremia (~07/2019) Dyslipidemia Dysphagia Esophageal adenocarcinoma Gastro-esophageal reflux disease without esophagitis Generalized anxiety disorder Hypertension Immunocompromised Impaired gait and mobility Lumbago Myocardial infarct Rheumatoid arthritis Rheumatoid arthritis SIRS (systemic inflammatory response syndrome) Surgical History H/O heart artery stent History of colonoscopy History of endoscopy (04/13/21) 08/14/20 - Esophageal mass Port-A-Cath in place (09/29/20) Status post insertion of percutaneous endoscopic gastrostomy (PEG) tube (11/12/20) Family History Family/Other Cancer Family members in general Diabetes Family members in general Hypothyroid Family members in general Social History Quit status (tobacco): quit date established Second hand smoke exposure: No Smoking risk assessment/counseling performed?: No Alcohol intake: never Desire information about alcohol rehabilitation?: No Counseling given: No Desire information about substance/drug rehabilitation?: No Counseling given: No Caregiver/support person: No Lives independently: Yes Household members: significant other Marital status: Single History of recent travel: No Current gender identity: Male Physical Exam Const: COMMON NORMALS: patient oriented x3 and healthy appearing HENMT: COMMON NORMALS: normocephalic and atraumatic HEAD & SCALP: normocephalic and atraumatic Eye: COMMON NORMALS: Equal, round and reactive pupils present and EOMs intact bilaterally PUPIL: Yes Equal, round and reactive pupils present Neck/C-Spine: COMMON NORMALS: full ROM and supple Chest: COMMONS NORMALS: normal inspection of the chest and normal palpation of entire chest wall Resp: COMMON NORMALS: normal respiratory effort, No retractions, No use of accessory muscles and clear to auscultation bilaterally AUSCULTATION: clear to auscultation bilaterally Cardio: COMMON NORMALS: regular rate, regular rhythm and No murmurs present (Cardio) RATE: regular rate RHYTHM: regular rhythm GI: COMMON NORMALS: Normal to inspection, nondistended, normoactive bowel sounds present, Soft to palpation, non-tender and no masses PALPATION: Yes Soft to palpation Extremity: COMMON NORMALS: normal to inspection and full ROM Neuro: COMMON NORMALS: patient oriented x3, moves all extremities and no focal motor deficits Psych: COMMON NORMALS: mental status grossly normal, Normal thought process present and cooperative THOUGHT PROCESS: Normal thought process present Skin: COMMON NORMALS: no rashes or lesions noted and no wounds GENERAL SKIN EXAM: no rashes or lesions noted Course Vital Signs: Vital signs: Vital Signs Temperature 97.8 F 07/01/21 17:04 Pulse Rate 99 07/01/21 17:38 Respiratory Rate 18 07/01/21 17:38 Blood Pressure 114/78 07/01/21 17:38 Pulse Oximetry 94 07/01/21 17:38 MDM - General Adult MDM Narrative: Medical decision making narrative: Patient presents with hypoglycemia likely due to decreased intake he is on a sulfonylurea which is long-acting patient's glucose is stabilized here but due to the long-acting nature I am still concerned that it could drop again will admit for observation spoke to hospitalist at this time to monitor his blood glucose. Lab Data: Labs: Lab Results 07/01/21 07/01/21 07/01/21 17:03 17:20 17:20 WBC 7.4 10^3/uL 10^3/ uL (4.0-10.0) RBC 3.86 10^6/uL L 10 ^6/uL (4.1-5.3) Hgb 11.0 g/dL L g/dL (11.7-16.6) Hct 35.9 % L % (42.0-52.0) MCV 93.0 fl fl (80-94) MCH 28.5 pg pg (28.0-34.0) MCHC 30.6 g/dL g/dL (30.0-36.0) RDW 19.8 % H % (12.1-15.1) Plt Count 233 10^3/cmm 10^3 /cmm (130-400) MPV 12.7 fL H fL (7.4-10.4) Neut % (Auto) 82.1 % % Lymph % (Auto) 5.5 % % [place] % (Auto) 8.0 % % Eos % (Auto) 0.0 % % Baso % (Auto) 0.3 % % Neut # (Auto) 6.07 10^3/uL 10^3 /uL (1.8-7.7) Lymph # (Auto) 0.4 10^3/uL L 10^ 3/uL (0.8-4.8) [place]inn # (Auto) 0.6 10^3/uL 10^3/ uL (0.2-0.9) Eos # (Auto) 0.0 10^3/uL 10^3/ uL (0.0-0.8) Baso # (Auto) 0.0 10^3/uL 10^3/ uL (0.0-0.1) Nucleated RBC % (a uto) 0 % % Nucleated RBCs # 0.0 /100WBC /100W BC Sodium 140 mmol/L mmol/L (136-145) Potassium 3.5 mmol/L mmol/L (3.5-5.1) Chloride 103 mmol/L mmol/L (98-107) Carbon Dioxide 23 mmol/L mmol/L (22-29) Anion Gap 17.5 (5-19) BUN 10 mg/dL mg/dL (6-20) Creatinine 0.7 mg/dL mg/dL (0.7-1.2) GFR Calculation 115.8 mL/min mL/m in (90-130) Glucose 38 mg/dL L* mg/dL (65-115) POC Glucose 54 mg/dL L mg/dL (70-110) Calculated Osmolal ity 286 mOsm/kg mOsm/ kg (285-295) Calcium 7.6 mg/dL L mg/dL (8.5-10.5) Total Bilirubin 0.5 mg/dL mg/dL (0.15-1.2) AST 53 U/L H U/L (0-40) ALT 22 U/L U/L (0-41) Alkaline Phosphata se 482 IU/L H IU/L (40-130) Total Protein 6.2 g/dL L g/dL (6.6-8.7) Albumin 2.6 g/dL L g/dL (3.5-5.2) Globulin 3.6 g/dL g/dL (1.3-4.6) 07/01/21 07/01/21 07/01/21 18:01 18:40 20:12 WBC RBC Hgb Hct MCV MCH MCHC RDW Plt Count MPV Neut % (Auto) Lymph % (Auto) [place] % (Auto) Eos % (Auto) Baso % (Auto) Neut # (Auto) Lymph # (Auto) [place] # (Auto) Eos # (Auto) Baso # (Auto) Nucleated RBC % (a uto) Nucleated RBCs # Sodium Potassium Chloride Carbon Dioxide Anion Gap BUN Creatinine GFR Calculation Glucose POC Glucose 96 mg/dL mg/dL 78 mg/dL mg/dL 76 mg/dL mg/dL (70-110) (70-110) (70-110) Calculated Osmolal ity Calcium Total Bilirubin AST ALT Alkaline Phosphata se Total Protein Albumin Globulin 07/01/21 21:02 WBC RBC Hgb Hct MCV MCH MCHC RDW Plt Count MPV Neut % (Auto) Lymph % (Auto) [place] % (Auto) Eos % (Auto) Baso % (Auto) Neut # (Auto) Lymph # (Auto) [place] # (Auto) Eos # (Auto) Baso # (Auto) Nucleated RBC % (a uto) Nucleated RBCs # Sodium Potassium Chloride Carbon Dioxide Anion Gap BUN Creatinine GFR Calculation Glucose POC Glucose 136 mg/dL H mg/dL (70-110) Calculated Osmolal ity Calcium Total Bilirubin AST ALT Alkaline Phosphata se Total Protein Albumin Globulin Critical Care Time Critical Care Time: Critical Care Time: Yes Total Critical Care Time: 35 Attestation: The high probability of a clinically significant, sudden or life threatening deterioration of the patient's [] system(s) required my full and direct attention, intervention and personal management. The critical care time is as shown. This time is in addition to time spent performing any reported procedures but includes the following: [x] Data and vital sign review and interpretation [x] Patient assessment, examination and intervention [x] Documentation [x] Medication orders and management Discharge Plan Discharge Patient Disposition: Placed in Observation Clinical Impression: Hypoglycemia Condition: Stable Prescriptions: No Action (DME) Wheelchair See Rx Instructions .Route .MEDSUPPLY Qty: 1 RF: 0 lovastatin 20 mg tablet 20 mg PO DAILY@0830 Qty: 90 RF: 1 metoclopramide HCl [Reglan] 5 mg tablet 5 mg PO TID 30 Days Qty: 90 RF: 2 nitroglycerin 0.4 mg tablet, sublingual See Rx Instructions .ROUTE .COMPLEX Qty: 25 RF: 0 folic acid 1 mg tablet 1 mg PO DAILY@0830 RF: 0 ondansetron HCl 4 mg tablet 4 mg PO Q8H PRN (Reason: NAUSEA/VOMITING) RF: 0 prochlorperazine maleate 10 mg tablet 10 mg PO Q4H PRN (Reason: NAUSEA/VOMITING) RF: 0 dexamethasone 4 mg tablet See Rx Instructions .ROUTE .COMPLEX RF: 0 Hold Instructions: see oncology Humulin R Regular U-100 Insuln 100 unit/mL solution See Rx Instructions .ROUTE .COMPLEX RF: 0 lorazepam 1 mg tablet 0.5 - 1 mg PO TID PRN (Reason: Anxiety) RF: 0 Hold Instructions: see pcp pantoprazole 40 mg tablet,delayed release (DR/EC) 40 mg PO DAILY RF: 0 silver sulfadiazine [Silvadene] 1 % cream 1 applic topical BID PRN (Reason: wound healing) Qty: 50 RF: 0 bacitracin zinc 500 unit/gram Ointment 1 applic TOPICAL BID RF: 0 oxycodone-acetaminophen 10-325 mg tablet 1 - 2 tab PO Q4H PRN (Reason: Pain) RF: 0 prednisone 20 mg tablet 20 mg PO BID RF: 0 amino acids-whey prot conc,iso 20 gram-110 kcal/28 gram Powder See Rx Instructions .ROUTE .COMPLEX RF: 0 magnesium 1 tab PO QAM RF: 0 sertraline [Zoloft] 100 mg tablet 100 mg PO QAM RF: 0 nystatin 100,000 unit/gram cream See Rx Instructions .ROUTE .COMPLEX RF: 0 bupropion HCl 150 mg tablet extended release 24 hr 150 mg PO QAM RF: 0 tizanidine 4 mg capsule 4 mg PO Q12H RF: 0 (DME) Stomahesive Skin Barrier 1 1/2 misc See Rx Instructions .Route Qty: 10 RF: 0 (DME) Ostomy Appliance Belt Misc See Rx Instructions .Route Qty: 1 RF: 0 (DME) ostomy kit Kit See Rx Instructions .Route Qty: 1 RF: 0 ferrous sulfate 300 mg (60 mg iron)/5 mL liquid 60 mg PO DAILY 30 Days Qty: 120 RF: 1 fentanyl 25 mcg/hr patch 72 hour 1 patch transdermal Q72H Qty: 5 RF: 0 oxycodone 5 mg tablet 5 mg PO Q6H PRN (Reason: pain) Qty: 20 RF: 0 Referrals: Stephany Villalpando, INTERPERSONAL COMMUNICATIONS PROFESSOR-C [Primary Care Provider] - Coding Level of Care Code ED Security Operations Center Operator for Chg Fwd Exam Comprehensive
[2021-07-01 18:36] LABS: Glucose 38 mg/dL (65-115)
[2021-07-01 18:42] LABS: Glucose Point of Care 78 mg/dL (70-110)
[2021-07-01 20:14] LABS: Glucose Point of Care 76 mg/dL (70-110)
[2021-07-01] MEDS: dextrose 50% syringe 50 mL IVP (20:28)
[2021-07-01 21:06] LABS: Glucose Point of Care 136 mg/dL (70-110)
[2021-07-01] MEDS: dextrose 10% 1,000 ML 30 ML IV (22:34)
[2021-07-01 23:40] LABS: Glucose Point of Care 97 mg/dL (70-110)
--- NOTE | 2021-07-01 23:55 | PM.HP ---
Providers/Chief Complaint Admitting Physician: Bell Kowalski MD Primary Care Provider: Stephany Villalpando, RESEARCH MANUFACTURING OPERATOR-C Chief Complaint: LEAKING FEEDING TUBE/LOW BLOOD SUGAR History of Present Illness Maixmino Sandoval is a 56 year old male, with multiple comorbidities as listed below, chiefly esophageal cancer, currently with a feeding PEG in place, was recently discharged from the hospital on June 27 after presenting with hypoglycemia. On the last discharge sulfonylureas were discontinued, however it appears patient did not understand the discharge instructions and continued to take his sulfonylurea upon discharge from the hospital. He presented to the emergency room today with lethargy fatigue, found to have a blood glucose of 38, was given several pushes of 50% IV dextrose to maintain his blood sugar however continued to be hypoglycemic. He has since been started on a D10 infusion to maintain his blood sugar levels. Insulin and sulfonylureas have been discontinued. He is much more awake after correction of the hypoglycemia. He has had multiple feeding difficulties at home with leaking of his PEG tube, return of tube feeds. He continues to have some p.o. intake however is unable to completely swallow when most of it is eventually spit out. Review of Systems General: Reports: 10 or more systems reviewed and unremarkable except in HPI and below Const: Denies: fever(s), chills or body aches Eyes: Denies: change in vision, blurry vision or photophobia ENMT: Reports: hoarseness; Denies: throat pain, enlarged tonsils, odynophagia or nasal congestion Card: Denies: chest pain, palpitations, irregular heart rhythm, edema, swelling of feet/ankles, lightheadedness, pre-syncope, dyspnea on exertion or orthopnea Resp: Denies: dyspnea, productive cough, non-productive cough, wheezing, stridor, pain on inspiration, change in phlegm color, hemoptysis or chest congestion GI: Denies: abdominal pain, nausea, vomiting, hematemesis, coffee ground emesis, dysphagia, heartburn, diarrhea, constipation, GI cramping, change in stool character, hematochezia or melena : Denies: flank pain, dysuria, urinary frequency, urinary urgency, urinary hesitancy or hematuria Musc: Denies: neck pain, back pain, extremity pain, joint swelling, joint warmth or deformity Neuro: Denies: headache(s), numbness in extremities, weakness in extremities, sensory changes, difficulty walking, frequent falls, dizziness, vertigo, behavioral changes, Slurred speech present or seizure-like activity Psych: Denies: anxiety, depression, suicidal ideation or homicidal ideation Endo: Denies: polyuria, polydipsia, tired all the time, cold intolerance or hot flashes Kb/Lymph: Denies: easy bruising or easy bleeding Medications/Allergies Home Medications Medication Instructions Recorded Confirmed Last Taken Type Humulin R Regular U-100 Insuln See Rx Instructions .ROUTE .COMPLEX 12/05/20 06/25/21 3 Months Ago History ~01/29/21 dexamethasone See Rx Instructions .ROUTE .COMPLEX 12/05/20 06/25/21 06/10/21 02:30 History folic acid 1 mg PO DAILY@0830 12/05/20 06/25/21 06/25/21 History lorazepam 0.5 - 1 mg PO TID PRN 12/05/20 06/25/21 06/23/21 History 1 mg ondansetron HCl 4 mg PO Q8H PRN 12/05/20 06/25/21 1 Day Ago History ~04/30/21 prochlorperazine maleate 10 mg PO Q4H PRN 12/05/20 06/25/21 1 Day Ago History ~04/30/21 nitroglycerin 0.4 mg sublingual See Rx Instructions .ROUTE 02/10/21 06/25/21 1 Year Ago Rx tablet .COMPLEX #25 tablet ~05/01/20 pantoprazole 40 mg PO DAILY 04/13/21 06/25/21 06/25/21 History Wheelchair #1 ea 05/19/21 06/25/21 Unknown Rx lovastatin 20 mg tablet 20 mg PO DAILY@0830 #90 tab 05/23/21 06/25/21 06/24/21 Rx silver sulfadiazine [Silvadene] 1 applic TOPICAL BID PRN #50 g 05/30/21 06/25/21 Unknown Rx metoclopramide HCl 5 mg tablet 5 mg PO TID 30 Days #90 tab 06/01/21 06/25/21 06/25/21 Rx amino acids-whey prot conc,iso See Rx Instructions .ROUTE .COMPLEX 06/10/21 06/25/21 06/19/21 History bupropion HCl 150 mg PO QAM 06/10/21 06/25/21 06/25/21 History magnesium 1 tab PO QAM 06/10/21 06/25/21 06/25/21 History nystatin See Rx Instructions .ROUTE .COMPLEX 06/10/21 06/25/21 Unknown History prednisone 20 mg PO BID 06/10/21 06/25/21 06/25/21 History sertraline [Zoloft] 100 mg PO QAM 06/10/21 06/25/21 06/25/21 History tizanidine 4 mg PO Q12H 06/10/21 06/25/21 06/13/21 History colostomy belt [Ostomy Appliance #1 ea 06/17/21 06/25/21 Unknown Rx Belt] ostomy kit #1 ea 06/17/21 06/25/21 Unknown Rx ostomy supplies [Stomahesive Skin #10 ea 06/17/21 06/25/21 Unknown Rx Barrier] bacitracin zinc 1 applic TOPICAL BID 06/23/21 06/25/21 Unknown History oxycodone-acetaminophen 1 - 2 tab PO Q4H PRN 06/23/21 06/25/21 06/23/21 09:30 History ferrous sulfate 60 mg PO DAILY 30 Days #120 ml 06/27/21 Unknown Rx fentanyl 1 patch TRANSDERMAL Q72H #5 ea 06/29/21 Unknown Rx oxycodone 5 mg PO Q6H PRN #20 tab 06/29/21 Unknown Rx Allergies Allergy/AdvReac Type Severity Reaction Status Date / Time lisinopril Allergy Intermediate ADR-Cough Verified 06/29/21 10:33 PFSH Acute PFSH: Medical History 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 Anemia Atypical lymphocytosis Chronic kidney disease COPD (chronic obstructive pulmonary disease) Coronary artery disease Diabetes mellitus Dilutional hyponatremia (~07/2019) Dyslipidemia Dysphagia Esophageal adenocarcinoma Gastro-esophageal reflux disease without esophagitis Generalized anxiety disorder Hypertension Immunocompromised Impaired gait and mobility Lumbago Myocardial infarct Rheumatoid arthritis Rheumatoid arthritis SIRS (systemic inflammatory response syndrome) Surgical History H/O heart artery stent History of colonoscopy History of endoscopy (04/13/21) 08/14/20 - Esophageal mass Port-A-Cath in place (09/29/20) Status post insertion of percutaneous endoscopic gastrostomy (PEG) tube (11/12/20) Family History Family/Other Cancer Family members in general Diabetes Family members in general Hypothyroid Family members in general Social History Quit status (tobacco): quit date established Second hand smoke exposure: No Smoking risk assessment/counseling performed?: No Alcohol intake: never Desire information about alcohol rehabilitation?: No Counseling given: No Desire information about substance/drug rehabilitation?: No Counseling given: No Caregiver/support person: No Lives independently: Yes Household members: significant other Marital status: Single History of recent travel: No Current gender identity: Male Vitals/I&O/Wt Last Vital Signs Temp 97.8 F 07/01/21 17:04 Pulse 99 07/01/21 17:38 Resp 18 07/01/21 17:38 BP 114/78 07/01/21 17:38 Pulse Ox 94 07/01/21 17:38 Weight last 48 hrs Weight 69.853 kg Physical Exam Narrative: EXAM NARRATIVE: General: No acute distress, AO x3 HEENT: PERRLA, pupils bilaterally equal and reactive, pallors not present Chest: Normal vesicular breath sounds, no added sounds, equal good air entry bilaterally CVS: S1-S2 regular, no murmurs, no tachycardia, no gallops, no rubs Abdomen: Soft, PEG in place with surrounding erythema Neuro: No focal deficits, no facial deformity, AO x3, power 5/5 in all limbs Data : 07/01/21 17:20 07/01/21 17:20 A&P Assessment and plan (1) Hypoglycemia: Hypoglycemia likely has a combination of continuation of sulfonylurea at home and poor enteral intake. Multiple boluses of 50% dextrose given in the emergency room, now started on a D10 infusion to maintain blood glucose levels. Continue prednisone 20 mg twice daily at home dosing. Blood pressure is currently within normal limits, lower suspicion of acute adrenal insufficiency. Status: Acute (2) Leaking PEG tube: Patient has had issues with intermittent leaking of PEG tube which is continuing at this time. Per his life partner, unable to feed well through the PEG tube due to return of most contents. Unable to take p.o. intake due to esophageal cancer. Patient had outpatient follow-up scheduled with Dr. Banks for upper GI series and evaluation of the PEG site today. Will complete this as inpatient as prevention of recurrent hypoglycemia will require ensuring that patient can have adequate enteral intake. Status: Acute Additional A&P Information Cervical compression fracture: Recent fall with a compression fracture at level C5. Previously known to be a site of metastatic disease. No current active complaints in this regard. COPD: DuoNeb as needed, no evidence of exacerbation currently Coronary artery disease: Continue home medications. Attestations Medical Necessity Statement*: Anticipate less than 2 midnight admission for above defined care Coding Level of Care Code Acute Data Management Associate for Chg Fwd Diagnoses Hypoglycemia E16.2 Leaking PEG tube K94.23
[2021-07-02] VITALS (12 sets, daily range): BP systolic 116–148; BP diastolic 68–94; PULSE 63–97; RESP 16–20; TEMP 36.5–36.9; O2SAT 90–96; BMI 22.7
[2021-07-02 01:44] LABS: Glucose Point of Care 111 mg/dL (70-110)
[2021-07-02] MEDS: oxyCODONE 5 mg IR Tab/Cap PO ×3 (02:25→17:49)
[2021-07-02] MEDS: nystatin cream 30 gm TOPICAL ×3 (02:38→17:48)
[2021-07-02 04:30] LABS: Glucose Point of Care 71 mg/dL (70-110)
[2021-07-02] MEDS: ondansetron 2 mg/ML SDV 2 mL 4 MG IVP (04:50)
[2021-07-02] MEDS: buPROPion XL (24 HR) 150 mg Tablet PO (05:23)
[2021-07-02] MEDS: sertraline 100 mg Tablet PO (05:23)
--- NOTE | 2021-07-02 05:41 | FL_ITS ---
WS: [id number] PEG tube placement, 07/02/2021 Clinical Data: check PEG position Comparison: None. Fluoroscopy time: 1.0 minutes. Findings: Gastrografin was injected into the PEG tube. No leakage of contrast was seen. The stomach was well ou tlined. FL/FL upper GI series [id number] Impression: Satisfactory injection of Gastrografin into the PEG tube with no evidence of le akage.
[2021-07-02 06:07] LABS: Alanine Aminotransferase 18 U/L (0-41); Albumin Level 2.6 g/dL (3.5-5.2); Alkaline Phosphatase 421 IU/L (40-130); Aspartate Amino Transferase 46 U/L (0-40); Blood Urea Nitrogen 9 mg/dL (6-20); Calcium 7.3 mg/dL (8.5-10.5); Carbon Dioxide 28 mmol/L (22-29); Chloride 103 mmol/L (98-107); Globulin 3.2 g/dL (1.3-4.6); Glomerular Filtration Rate 115.8 mL/min (90-130); Glucose 75 mg/dL (65-115); Osmolality Calculated 287 mOsm/kg (285-295); Sodium 140 mmol/L (136-145); Total Bilirubin 0.6 mg/dL (0.15-1.2); Total Protein 5.8 g/dL (6.6-8.7)
[2021-07-02 06:34] LABS: Glucose Point of Care 149 mg/dL (70-110)
[2021-07-02] MEDS: pantoprazole 40 mg SDV IVP (09:27)
[2021-07-02] MEDS: predniSONE 20 mg Tablet PO ×2 (09:27→17:48)
[2021-07-02] MEDS: atorvastatin 40 mg Tablet 20 MG PO (09:27)
[2021-07-02 10:06] LABS: Glucose Point of Care 111 mg/dL (70-110)
[2021-07-02 10:06] LABS: Glucose Point of Care 495 mg/dL (70-110)
--- NOTE | 2021-07-02 10:16 | PC.PHAR ---
pts alanna [phone] verified pts medications-notes are made in the pharmacy comments
--- NOTE | 2021-07-02 10:33 | PC.CHAP ---
Pastoral Care Encounter/Spiritual Assessment Type of Contact [] Declined structural steel erection supervisor visit [] Patient/Family/Request visit [] Outpatient visit [] Follow-up visit [] Physician referral [] Code/Alert [x] Routine visit [] Staff referral [] Actively dying [] Patient sleeping [] Family support [] [] Out of room [] Palliative care [] [x] Receiving care in room [] Pre-surgical visit [] Trauma [] Long length of stay [] ICU visit [] Other: Relational/Emotional Strength [x] Patient feels connected with others/family/visitors/staff [] Distress [] Loneliness/isolation [] Abandonment Spirituality of Patient [x] Person of Holli [] Attends Pentecostalism of their Holli [x] Believes in Prayer [] Reads Bible or Scientologist materials [] There are Spiritual issues to be addressed Back Tender Pulp Drier Interventions [x] Prayer [x] Active listening [x] Non-anxious presence [x] Spiritual/emotional support [] Crisis/trauma care [x] Spiritual counseling [] Bereavement support [] Provided bereavement packet [] Provided Bible/devotional materials [] Provided toy/stuffed animal, coloring book to patient or family member [] Provided Communion [] Anointing/[place] [] Salvation [x] Completed spiritual assessment [] Other: Impact on Illness or Injury [] Angry [x] Fearful [] Anxious [] Often cries [] Exhaustion [x] Unable to work [] Unable to attend taoism [] Unable to walk/stand [] Unable to read [] Unable to drive [] Unable to eat/drink [] Unable to sleep [] Unable to be with family [] Patient intubated [] Other: Summary low blood suger waqting the results of tests will be able to going home at some point Time spent with patient 10 mins Pastoral Care Encounter/Spiritual Assessment Type of Contact [] Declined structural steel erection supervisor visit [] Patient/Family/Request visit [] Outpatient visit [] Follow-up visit [] Physician referral [] Code/Alert [] Routine visit [] Staff referral [] Actively dying [] Patient sleeping [] Family support [] [] Out of room [] Palliative care [] [] Receiving care in room [] Pre-surgical visit [] Trauma [] Long length of stay [] ICU visit [] Other: Relational/Emotional Strength [] Patient feels connected with others/family/visitors/staff [] Distress [] Loneliness/isolation [] Abandonment Spirituality of Patient [] Person of Holli [] Attends Pentecostalism of their Holli [] Believes in Prayer [] Reads Bible or Scientologist materials [] There are Spiritual issues to be addressed Back Tender Pulp Drier Interventions [] Prayer [] Active listening [] Non-anxious presence [] Spiritual/emotional support [] Crisis/trauma care [] Spiritual counseling [] Bereavement support [] Provided bereavement packet [] Provided Bible/devotional materials [] Provided toy/stuffed animal, coloring book to patient or family member [] Provided Communion [] Anointing/[place] [] Salvation [] Completed spiritual assessment [] Other: Impact on Illness or Injury [] Angry [] Fearful [] Anxious [] Often cries [] Exhaustion [] Unable to work [] Unable to attend taoism [] Unable to walk/stand [] Unable to read [] Unable to drive [] Unable to eat/drink [] Unable to sleep [] Unable to be with family [] Patient intubated [] Other: Summary Time spent with patient
[2021-07-02] MEDS: diatrizoate meglumine 120 mL Sol PR (11:02)
[2021-07-02] MEDS: potassium chloride ER 20 mEq Tablet 40 MEQ PO ×2 (11:27→12:39)
[2021-07-02] MEDS: dextrose 5%-sod chloride 0.9% 1,000 ML 50 ML IV (11:27)
--- NOTE | 2021-07-02 12:27 | PM.PN ---
Subjective Subjective: Interval history: Admitted overnight. Denies any nausea, vomiting. Blood sugars better. Vitals/I&O/Wt Last Vital Signs Temp 98.0 F 07/02/21 11:57 Pulse 82 07/02/21 11:57 Resp 20 H 07/02/21 11:57 BP 128/78 07/02/21 11:57 Pulse Ox 90 07/02/21 11:57 07/01/21 07/02/21 07/02/21 22:59 06:59 14:59 Intake Total 235 / 235 Output Total 500 / 500 Balance -265 / -265 Weight last 48 hrs Weight 69.853 kg Weight 69.853 kg Physical Exam Narrative: EXAM NARRATIVE: General: No acute distress, AO x3 HEENT: PERRLA, pupils bilaterally equal and reactive, pallors not present Chest: Normal vesicular breath sounds, no added sounds, equal good air entry bilaterally CVS: S1-S2 regular, no murmurs, no tachycardia, no gallops, no rubs Abdomen: Soft, PEG in place with surrounding erythema Neuro: No focal deficits, no facial deformity, AO x3, power 5/5 in all limbs Data : 07/01/21 17:20 07/02/21 05:20 A&P Assessment and plan (1) Hypoglycemia: Hypoglycemia likely has a combination of continuation of sulfonylurea at home and poor enteral intake. Multiple boluses of 50% dextrose given in the emergency room, Switch to D5 NS at 50 cc/h. Replete potassium. Continue prednisone 20 mg twice daily at home dosing. Blood pressure is currently within normal limits, lower suspicion of acute adrenal insufficiency. Supposed to be on insulin, glipizide at home. Glipizide was supposed to be stopped on last discharge. Last A1c from 2024.9. We will repeat HbA1c. Status: Acute (2) Leaking PEG tube: Patient has had issues with intermittent leaking of PEG tube which is continuing at this time. Per his life partner, unable to feed well through the PEG tube due to return of most contents. Unable to take p.o. intake due to esophageal cancer. Appreciate upper GI series results. Appreciate Dr. Banks's recommendation. Status: Acute Additional A&P Information NextCervical compression fracture: Recent fall with a compression fracture at level C5. Previously known to be a site of metastatic disease. No current active complaints in this regard. COPD: DuoNeb as needed, no evidence of exacerbation currently Coronary artery disease: Continue home medications. DNR/DNI. Tube feeds as per surgery. Heparin for DVT prophylaxis. Protonix for PUD prophylaxis Attestations Medical Necessity Statement*: Requires further hospitalization for management of recurrent hypoglycemia in setting of poor oral intake and intake of sulfonylurea as an outpatient, possible PEG tube malfunction Time Spent in Patient Care: Greater than 35 minutes (>than 50% of time spent in counselling and/or direct pt care on unit). Coding Level of Care Code Acute Private Branch Exchange Repairer for Chg Fwd Diagnoses Hypoglycemia E16.2 Leaking PEG tube K94.23
[2021-07-02 12:51] LABS: Estmated Average Glucose 111; Hemoglobin A1C 5.5 % (4.0-6.0)
[2021-07-02 13:04] LABS: Iron 24 ug/dL (59-158); Percent Saturation 32.4 % (20-50); Total Iron Binding Capacity 74 mcg/dl; Unsaturated Iron Binding 50 ug/dL (112-347)
[2021-07-02 13:14] LABS: Glucose Point of Care 198 mg/dL (70-110)
[2021-07-02] MEDS: heparin 5,000 unit/mL INJ 1 mL 5000 UNIT SUBCUT (13:15)
--- NOTE | 2021-07-02 16:15 | P.CONIM_ITS ---
Providers/Reason For Consult Consulting Physician/Specialty*: General Surgery Dr. Banks Reason for Consult*: Management of PEG tube Attending Physician: Frank Tobin MD Primary Care Provider: DAVID Davies History of Present Illness History of Present Illness Maximino Sandoval is a 56 year old male Review of Systems General: Reports: 10 or more systems reviewed and unremarkable except in HPI and below Meds/Allergies Home Medications and Allergies Home Medications Medication Instructions Recorded Confirmed Last Taken Type Humulin R Regular U-100 Insuln See Rx Instructions .ROUTE .COMPLEX 12/05/20 07/02/21 07/01/21 History 2 units dexamethasone See Rx Instructions .ROUTE .COMPLEX 12/05/20 07/02/21 06/10/21 02:30 History folic acid 1 mg PO DAILY@0830 12/05/20 07/02/21 06/25/21 History lorazepam 0.5 - 1 mg PO TID PRN 12/05/20 07/02/21 06/23/21 History 1 mg ondansetron HCl 4 mg PO Q8H PRN 12/05/20 07/02/21 1 Day Ago History ~04/30/21 prochlorperazine maleate 10 mg PO Q4H PRN 12/05/20 07/02/21 1 Day Ago History ~04/30/21 nitroglycerin 0.4 mg sublingual See Rx Instructions .ROUTE 02/10/21 07/02/21 1 Year Ago Rx tablet .COMPLEX #25 tablet ~05/01/20 pantoprazole 40 mg PO DAILY 04/13/21 07/02/21 06/25/21 History Wheelchair #1 ea 05/19/21 07/02/21 Unknown Rx silver sulfadiazine [Silvadene] 1 applic TOPICAL BID PRN #50 g 05/30/21 07/02/21 Unknown Rx metoclopramide HCl 5 mg tablet 5 mg PO TID 30 Days #90 tab 06/01/21 07/02/21 06/25/21 Rx amino acids-whey prot conc,iso See Rx Instructions .ROUTE .COMPLEX 06/10/21 07/02/21 06/19/21 History bupropion HCl 150 mg PO QAM 06/10/21 07/02/21 06/25/21 History magnesium 1 tab PO QAM 06/10/21 07/02/21 06/25/21 History nystatin See Rx Instructions .ROUTE .COMPLEX 06/10/21 07/02/21 Unknown History prednisone 30 mg PO BID 06/10/21 07/02/21 06/25/21 History sertraline [Zoloft] 100 mg PO QAM 06/10/21 07/02/21 06/25/21 History tizanidine 4 mg PO Q12H 06/10/21 07/02/21 06/13/21 History colostomy belt [Ostomy Appliance #1 ea 06/17/21 07/02/21 Unknown Rx Belt] ostomy kit #1 ea 06/17/21 07/02/21 Unknown Rx ostomy supplies [Stomahesive Skin #10 ea 06/17/21 07/02/21 Unknown Rx Barrier] ferrous sulfate 60 mg PO DAILY 30 Days #120 ml 06/27/21 07/02/21 Unknown Rx fentanyl 1 patch TRANSDERMAL Q72H #5 ea 06/29/21 07/02/21 06/30/21 Rx oxycodone 5 mg PO Q6H PRN #20 tab 06/29/21 07/02/21 Unknown Rx glipizide 5 mg PO DAILY 07/02/21 07/02/21 06/30/21 History ketoconazole 1 applic TOPICAL TID 07/02/21 07/02/21 Unknown History lovastatin 20 mg PO BEDTIME 07/02/21 07/02/21 Unknown History Allergies Allergy/AdvReac Type Severity Reaction Status Date / Time lisinopril Allergy Intermediate ADR-Cough Verified 07/02/21 09:34 Current Medications Current Medications Generic Name Dose Route Start Last Admin Trade Name Freq PRN Reason Stop Dose Admin Atorvastatin Calcium 20 mg 07/02/21 08:30 07/02/21 09:27 Atorvastatin 40 Mg Tablet PO 20 mg DAILY@0830 DANIEL Administration Bupropion HCl 150 mg 07/02/21 06:00 07/02/21 05:23 Bupropion Xl (24 Hr) 150 Mg Tablet PO 150 mg QAM DANIEL Administration Heparin Sodium (Porcine) 5,000 unit 07/02/21 12:30 07/02/21 13:15 Heparin 5,000 Unit/Ml Inj 1 Ml SUBCUT 5,000 unit Q12H DANIEL Administration Dextrose/Sodium Chloride 1,000 mls @ 50 mls/hr 07/02/21 10:15 07/02/21 11:27 Dextrose 5%-Sod Chloride 0.9% IV 50 mls/hr .Q20H DANIEL Administration Nystatin 0 applic 07/02/21 01:34 07/02/21 09:37 Nystatin Cream 30 Gm TOPICAL 1 applic BID DANIEL Administration Ondansetron HCl 4 mg 07/01/21 22:02 07/02/21 04:50 Ondansetron 2 Mg/Ml Sdv 2 Ml IVP 4 mg Q8H PRN Administration vomiting, or N/V if npo Oxycodone HCl 5 mg 07/02/21 01:34 07/02/21 11:27 Oxycodone 5 Mg Ir Tab/Cap PO 5 mg Q6H PRN Administration pain Pantoprazole Sodium 40 mg 07/02/21 09:00 07/02/21 09:27 Pantoprazole 40 Mg Sdv IVP 40 mg DAILY DANIEL Administration Prednisone 20 mg 07/02/21 09:00 07/02/21 09:27 Prednisone 20 Mg Tablet PO 20 mg BID DANIEL Administration Sertraline HCl 100 mg 07/02/21 06:00 07/02/21 05:23 Sertraline 100 Mg Tablet PO 100 mg QAM DANIEL Administration PFSH Acute PFSH: Medical History (Updated 07/02/21 @ 16:16 by Wayne Banks MD) 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 Anemia Atypical lymphocytosis Chronic kidney disease COPD (chronic obstructive pulmonary disease) Coronary artery disease Diabetes mellitus Dilutional hyponatremia (~07/2019) Dyslipidemia Esophageal adenocarcinoma Gastro-esophageal reflux disease without esophagitis Generalized anxiety disorder Hypertension Impaired gait and mobility Lumbago Myocardial infarct Rheumatoid arthritis SIRS (systemic inflammatory response syndrome) Surgical History H/O heart artery stent History of colonoscopy History of endoscopy (04/13/21) 08/14/20 - Esophageal mass Port-A-Cath in place (09/29/20) Status post insertion of percutaneous endoscopic gastrostomy (PEG) tube (11/12/20) Family History Family/Other Cancer Family members in general Diabetes Family members in general Hypothyroid Family members in general Social History Quit status (tobacco): quit date established Second hand smoke exposure: No Smoking risk assessment/counseling performed?: No Alcohol intake: never Desire information about alcohol rehabilitation?: No Counseling given: No Desire information about substance/drug rehabilitation?: No Counseling given: No Caregiver/support person: No Lives independently: Yes Household members: significant other Marital status: Single History of recent travel: No Current gender identity: Male Vitals/I&O/Wt Last Vital Signs Temp 98.0 F 07/02/21 11:57 Pulse 82 07/02/21 11:57 Resp 20 H 07/02/21 11:57 BP 128/78 07/02/21 11:57 Pulse Ox 90 07/02/21 11:57 07/02/21 07/02/21 07/02/21 06:59 14:59 22:59 Intake Total 235 / 235 425.5 / 425.5 Output Total 500 / 500 Balance -265 / -265 425.5 / 425.5 Weight last 48 hrs Weight 154 lb Weight 154 lb Physical Exam Narrative: EXAM NARRATIVE: HEENT: Normocephalic Eye: Sclera /conjunctiva normal Abdomen: Soft to palpation, Hany button in the left upper quadrant, excoriation of the surrounding skin skin Neurological: Oriented to place person and time Skin: Intact, no lesions appreciated on gross exam A&P Assessment and plan (1) Leaking PEG tube: 56-year-old male status post PEG tube placement for metastatic esophageal cancer who is currently undergoing chemotherapy. We have been dealing with leakage around the gastrostomy tube for a few months now. Multiple different maneuvers including upsizing, downsizing, placement of GJ tube, placement of Adebayo-Vieira button have all been unsuccessful. Upper GI shows no evidence of distal obstruction. In the meantime patient has lost about 40 pounds since his oral intake has been minimal. Discussed options with the patient and at this point we will place a Dobbhoff tube and remove the Hany button in order to allow the gastrostomy site to heal. Patient has been dealing with significant abdominal pain from the skin excoriation due to leakage at the gastrostomy site. Hopefully with removal of the Hany button the gastrostomy should heal and thus alleviate his pain Status: Acute (2) Esophageal cancer: Patient also has advancing metastatic esophageal cancer while on chemotherapy. Patient would therefore like to consider hospice. Status: Acute Consult Attestations Medical Necessity Statement: As per attending physician Coding Level of Care Code Acute Storage Garage Attendant for Chg Fwd Diagnoses Leaking PEG tube K94.23 Esophageal cancer C15.9
[2021-07-02 16:32] LABS: Glucose Point of Care 176 mg/dL (70-110)
[2021-07-02] MEDS: metoclopramide 5 mg/mL SDV 2 mL 10 MG IVP (17:48)
--- NOTE | 2021-07-02 18:41 | XRR_ITS ---
PROCEDURE INFORMATION: Exam: XR Chest Exam date and time: 07/02/2021 6:41 PM Age: 56 years old Clinical indication: Device placement; Ng tube; Additional info: Verify placement of -tessa tube TECHNIQUE: Imaging protocol: XR of the chest. Views: 1 view. COMPARISON: 1. CR XR chest 1V portable [id number] 06/25/2021 7:[address] abdomen pelvis w con* [id number] 11:46 AM FINDINGS: Tubes, catheters and devices: Feeding tube placement which appears partially looped within the lower thorax. This is most likely located within a large hiatal hernia when correlated to the prior CT. Left [id number] with tip over the mid SVC. Peg tube in the left upper abdomen. Lungs: Unremarkable. No consolidation. Pleural spaces: Unremarkable. No pleural effusion. No pneumothorax. Heart/Mediastinum: The heart size is normal. Bones/joints: Unremarkable. XR/XR chest 1V portable [id number] IMPRESSION: 1. Feeding tube tip most likely located within a large hiatal hernia.
[2021-07-02 18:44] LABS: Glucose Point of Care 185 mg/dL (70-110)
--- NOTE | 2021-07-02 19:07 | PC.NURSE ---
REPORT GIVEN TO CHECK TOTALER NURSE. THIS NURSE PLACED THE -WILLIAM TUBE PER DR VALDEZ'S ORDER. WAITING FOR VERIFICATION PLACEMENT VIA XRAY. CHECK TOTALER NURSE TOLD ABOUT THIS. AFTER VERIFICATION NURSE IS TO REMOVE ESME BUTTON PER DR VALDEZ ORDER. CHECK TOTALER NURSE TODAY ABOUT THIS WELL. WILL CONTINUE TO MONITOR PT. WAITING PLACEMENT VERIFICATION.
[2021-07-02 20:19] LABS: Glucose Point of Care 190 mg/dL (70-110)
[2021-07-03] VITALS (12 sets, daily range): BP systolic 129–143; BP diastolic 82–91; PULSE 62–86; RESP 16–18; TEMP 36.5–36.7; O2SAT 91–100
[2021-07-03] MEDS: heparin 5,000 unit/mL INJ 1 mL 5000 UNIT SUBCUT (00:11)
[2021-07-03 00:24] LABS: Glucose Point of Care 198 mg/dL (70-110)
[2021-07-03 04:05] LABS: Glucose Point of Care 141 mg/dL (70-110)
[2021-07-03] MEDS: sertraline 100 mg Tablet PO (06:02)
[2021-07-03] MEDS: buPROPion XL (24 HR) 150 mg Tablet PO (06:02)
[2021-07-03] MEDS: dextrose 5%-sod chloride 0.9% 1,000 ML 50 ML IV (06:11)
[2021-07-03 06:31] LABS: Basophils % 0.4 %; Hematocrit 30.4 % (42.0-52.0); Hemoglobin 9.3 g/dL (11.7-16.6); Lymphocytes # 0.7 10^3/uL (0.8-4.8); Lymphocytes % 9.6 %; Mean Corpuscular HGB Conc 30.6 g/dL (30.0-36.0); Mean Corpuscular Hemoglobin 27.8 pg (28.0-34.0); Mean Corpuscular Volume 90.7 fl (80-94); Mean Platelet Volume 11.6 fL (7.4-10.4); Monocytes # 0.9 10^3/uL (0.2-0.9); Monocytes % 12.7 %; Neutrophils # 5.55 10^3/uL (1.8-7.7); Nucleated Red Blood Cells % 0 %; Platelet Count 259 10^3/cmm (130-400); Red Blood Count 3.35 10^6/uL (4.1-5.3); Red Cell Distribution Width 19.6 % (12.1-15.1); White Blood Count 7.4 10^3/uL (4.0-10.0)
[2021-07-03 06:46] LABS: Alanine Aminotransferase 16 U/L (0-41); Albumin Level 2.3 g/dL (3.5-5.2); Alkaline Phosphatase 371 IU/L (40-130); Anion Gap 15.4 (5-19); Aspartate Amino Transferase 34 U/L (0-40); Blood Urea Nitrogen 7 mg/dL (6-20); Calcium 6.8 mg/dL (8.5-10.5); Carbon Dioxide 25 mmol/L (22-29); Chloride 105 mmol/L (98-107); Globulin 3.1 g/dL (1.3-4.6); Glomerular Filtration Rate 138.4 mL/min (90-130); Glucose 120 mg/dL (65-115); Osmolality Calculated 293 mOsm/kg (285-295); Potassium 3.4 mmol/L (3.5-5.1); Sodium 142 mmol/L (136-145); Total Bilirubin 0.6 mg/dL (0.15-1.2); Total Protein 5.4 g/dL (6.6-8.7)
[2021-07-03] MEDS: ondansetron 2 mg/ML SDV 2 mL 4 MG IVP (07:04)
--- NOTE | 2021-07-03 07:46 | PM.PN ---
Subjective Subjective: Interval history: Patient was frustrated as attempt at placing the Dobbhoff tube yesterday was unsuccessful. He is currently receiving IV fluids Vitals/I&O/Wt Last Vital Signs Temp 98.1 F 07/03/21 04:00 Pulse 77 07/03/21 04:00 Resp 18 07/03/21 04:00 BP 137/90 07/03/21 04:00 Pulse Ox 93 07/03/21 04:00 07/02/21 07/03/21 07/03/21 22:59 06:59 14:59 Intake Total 0 / 1362.167 936.667 / 1362.167 Balance 0 / 1362.167 936.667 / 1362.167 Weight last 48 hrs Weight 162 lb 11.2 oz Weight 154 lb Weight 154 lb Physical Exam Narrative: EXAM NARRATIVE: Abdomen: Soft, nondistended, Hany button in place, skin excoriation around the Hany button. Data : 07/03/21 05:34 07/03/21 05:34 A&P Assessment and plan (1) Esophageal cancer: 56-year-old male with metastatic esophageal cancer who has been unable to tolerate tube feeds through his Hany button. An attempt was made to place Dobbhoff tube yesterday which was unsuccessful. Plan for EGD with placement of Dobbhoff tube today under general anesthesia. Discussed the possibility of inability to place a Dobbhoff tube due to esophageal cancer. Procedure, risks, benefits and alternatives have been discussed with the patient who wishes to proceed with surgery. Status: Acute Attestations Medical Necessity Statement*: As per primary Coding Level of Care Code Acute Methods Specialist Engineer for g Fwd Diagnoses Esophageal cancer C15.9
[2021-07-03 08:38] LABS: Glucose Point of Care 192 mg/dL (70-110)
[2021-07-03] MEDS: sodium chloride 0.9% 1,000 ML 30 ML IV (08:45)
--- NOTE | 2021-07-03 09:03 | ANES.PREANE2 ---
Pre-Anesthetic Assessment Pre-Anesthetic Assessment: Height/Weight: Height 1.75 m Weight 73.799 kg Temp Pulse Resp BP Pulse Ox 97.7 F 62 18 129/82 95 07/03/21 08:53 07/03/21 08:53 07/03/21 08:53 07/03/21 08:53 07/03/21 08:53 Preop Diagnosis: upper gi symptoms Proposed Procedure: Operation Date: 07/03/21 08:30 Proposed Procedures p EGD(Not Applicable) - Wayne Banks MD Was Beta Jenna taken within 24 hours: N/A Was Clonidine taken within 24 hours: N/A Last intake: Intake Last Liquid Date 07/02/21 Last Liquid Time 23:30 Last Solid Date 06/30/21 Last Solid Time 08:00 Social: Social History: Tobacco and No alcohol Exam: Pre-Anes Outpt Exam: alert, oriented x 3 and regular rate & rhythm Airway: Submandibular: WNL Cervical ROM: Other (Neck frx, stable) MP: 2 Dentition: Chipped Pulmonary: Pulmonary: COPD CV/HEM: CV/HEM: Anemia, CAD, HTN and MD (Stent X3) GI: Comments: esophageal CA Metabolic: Metabolic: Hyperlipidemia Musc/skel: Musc/skel: RA Comments: Chronic pain Neuropsych: Neuropsych: Anxiety and Depression Anesthetic Plan: ASA status: 3 Anesthesia: General (RSI) Risk of > 500 ml blood loss (7ml/kg in children): No Meds/Allergies Current Medications: Current Medications Generic Name Dose Route Start Last Admin Trade Name Freq PRN Reason Stop Dose Admin Atorvastatin Calci um 20 mg 07/02/21 08:30 07/02/21 09:27 Atorvastatin 40 Mg Tablet PO 20 mg DAILY@0830 DANIEL Administration Bupropion HCl 150 mg 07/02/21 06:00 07/03/21 06:02 Bupropion Xl (24 Hr) 150 Mg Tablet PO 150 mg QAM DANIEL Administration Heparin Sodium (Po rcine) 5,000 unit 07/02/21 12:30 07/03/21 00:11 Heparin 5,000 Un it/Ml Inj 1 Ml SUBCUT 5,000 unit Q12H DANIEL Administration Dextrose/Sodium Ch loride 1,000 mls @ 50 ml s/hr 07/02/21 10:15 07/03/21 06:11 Dextrose 5%-Sod Chloride 0.9% IV 50 mls/hr .Q20H DANIEL Administration Nystatin 0 applic 07/02/21 01:34 07/02/21 17:48 Nystatin Cream 3 0 Gm TOPICAL 1 applic BID DANIEL Administration Ondansetron HCl 4 mg 07/01/21 22:02 07/03/21 07:04 Ondansetron 2 Mg /Ml Sdv 2 Ml IVP 4 mg Q8H PRN Administration vomiting, or N/V if npo Oxycodone HCl 5 mg 07/02/21 01:34 07/02/21 17:49 Oxycodone 5 Mg I r Tab/Cap PO 5 mg Q6H PRN Administration pain Pantoprazole Sodiu m 40 mg 07/02/21 09:00 07/02/21 09:27 Pantoprazole 40 Mg Sdv IVP 40 mg DAILY DANIEL Administration Prednisone 20 mg 07/02/21 09:00 07/02/21 17:48 Prednisone 20 Mg Tablet PO 20 mg BID DANIEL Administration Sertraline HCl 100 mg 07/02/21 06:00 07/03/21 06:02 Sertraline 100 M g Tablet PO 100 mg QAM DANIEL Administration Zinc Oxide 1 applic 07/02/21 21:00 07/02/21 21:08 Zinc Oxide Oint 60 Gm TOPICAL 1 applic TID DANIEL Administration PFSH Anesthesia PFSH: Medical History (Updated 07/02/21 @ 16:16 by Wayne Banks MD) 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 Anemia Atypical lymphocytosis Chronic kidney disease COPD (chronic obstructive pulmonary disease) Coronary artery disease Diabetes mellitus Dilutional hyponatremia (~07/2019) Dyslipidemia Esophageal adenocarcinoma Gastro-esophageal reflux disease without esophagitis Generalized anxiety disorder Hypertension Impaired gait and mobility Lumbago Myocardial infarct Rheumatoid arthritis SIRS (systemic inflammatory response syndrome) Surgical History H/O heart artery stent History of colonoscopy History of endoscopy (04/13/21) 08/14/20 - Esophageal mass Port-A-Cath in place (09/29/20) Status post insertion of percutaneous endoscopic gastrostomy (PEG) tube (11/12/20) Family History Family/Other Cancer Family members in general Diabetes Family members in general Hypothyroid Family members in general Social History Quit status (tobacco): quit date established Second hand smoke exposure: No Smoking risk assessment/counseling performed?: No Alcohol intake: never Desire information about alcohol rehabilitation?: No Counseling given: No Desire information about substance/drug rehabilitation?: No Counseling given: No Caregiver/support person: No Lives independently: Yes Household members: significant other Marital status: Single History of recent travel: No Current gender identity: Male Data Anesthesia CBC & Chem 7: 07/03/21 05:34 07/03/21 05:34 Other Labs: Laboratory Results - last 48 hr 07/01/21 07/01/21 07/01/21 17:03 17:20 17:20 WBC 7.4 RBC 3.86 L Hgb 11.0 L Hct 35.9 L MCV 93.0 MCH 28.5 MCHC 30.6 RDW 19.8 H Plt Count 233 MPV 12.7 H Neut % (Auto) 82.1 Lymph % (Auto) 5.5 [place] % (Auto) 8.0 Eos % (Auto) 0.0 Baso % (Auto) 0.3 Neut # (Auto) 6.07 Lymph # (Auto) 0.4 L [place] # (Auto) 0.6 Eos # (Auto) 0.0 Baso # (Auto) 0.0 Nucleated RBC % (auto) 0 Nucleated RBCs # 0.0 Sodium 140 Potassium 3.5 Chloride 103 Carbon Dioxide 23 Anion Gap 17.5 BUN 10 Creatinine 0.7 GFR Calculation 115.8 Glucose 38 L* POC Glucose 54 L Estimat Average Glucose Hemoglobin A1c Calculated Osmolality 286 Calcium 7.6 L Iron TIBC % Saturation Unsat Iron Binding Total Bilirubin 0.5 AST 53 H ALT 22 Alkaline Phosphatase 482 H Total Protein 6.2 L Albumin 2.6 L Globulin 3.6 07/01/21 07/01/21 07/01/21 18:01 18:40 20:12 WBC RBC Hgb Hct MCV MCH MCHC RDW Plt Count MPV Neut % (Auto) Lymph % (Auto) [place] % (Auto) Eos % (Auto) Baso % (Auto) Neut # (Auto) Lymph # (Auto) [place] # (Auto) Eos # (Auto) Baso # (Auto) Nucleated RBC % (auto) Nucleated RBCs # Sodium Potassium Chloride Carbon Dioxide Anion Gap BUN Creatinine GFR Calculation Glucose POC Glucose 96 78 76 Estimat Average Glucose Hemoglobin A1c Calculated Osmolality Calcium Iron TIBC % Saturation Unsat Iron Binding Total Bilirubin AST ALT Alkaline Phosphatase Total Protein Albumin Globulin 07/01/21 07/01/21 07/02/21 21:02 23:37 01:42 WBC RBC Hgb Hct MCV MCH MCHC RDW Plt Count MPV Neut % (Auto) Lymph % (Auto) [place] % (Auto) Eos % (Auto) Baso % (Auto) Neut # (Auto) Lymph # (Auto) [place] # (Auto) Eos # (Auto) Baso # (Auto) Nucleated RBC % (auto) Nucleated RBCs # Sodium Potassium Chloride Carbon Dioxide Anion Gap BUN Creatinine GFR Calculation Glucose POC Glucose 136 H 97 111 H Estimat Average Glucose Hemoglobin A1c Calculated Osmolality Calcium Iron TIBC % Saturation Unsat Iron Binding Total Bilirubin AST ALT Alkaline Phosphatase Total Protein Albumin Globulin 07/02/21 07/02/21 07/02/21 04:28 05:20 05:20 WBC RBC Hgb Hct MCV MCH MCHC RDW Plt Count MPV Neut % (Auto) Lymph % (Auto) [place] % (Auto) Eos % (Auto) Baso % (Auto) Neut # (Auto) Lymph # (Auto) [place] # (Auto) Eos # (Auto) Baso # (Auto) Nucleated RBC % (auto) Nucleated RBCs # Sodium 140 Potassium 3.0 L Chloride 103 Carbon Dioxide 28 Anion Gap 12.0 BUN 9 Creatinine 0.7 GFR Calculation 115.8 Glucose 75 POC Glucose 71 Estimat Average Glucose Hemoglobin A1c Calculated Osmolality 287 Calcium 7.3 L Iron 24 L TIBC 74 % Saturation 32.4 Unsat Iron Binding 50 L Total Bilirubin 0.6 AST 46 H ALT 18 Alkaline Phosphatase 421 H Total Protein 5.8 L Albumin 2.6 L Globulin 3.2 07/02/21 07/02/21 07/02/21 05:20 06:28 10:01 WBC RBC Hgb Hct MCV MCH MCHC RDW Plt Count MPV Neut % (Auto) Lymph % (Auto) [place] % (Auto) Eos % (Auto) Baso % (Auto) Neut # (Auto) Lymph # (Auto) [place] # (Auto) Eos # (Auto) Baso # (Auto) Nucleated RBC % (auto) Nucleated RBCs # Sodium Potassium Chloride Carbon Dioxide Anion Gap BUN Creatinine GFR Calculation Glucose POC Glucose 149 H 495 H Estimat Average Glucose 111 Hemoglobin A1c 5.5 Calculated Osmolality Calcium Iron TIBC % Saturation Unsat Iron Binding Total Bilirubin AST ALT Alkaline Phosphatase Total Protein Albumin Globulin 07/02/21 07/02/21 07/02/21 10:03 13:11 16:28 WBC RBC Hgb Hct MCV MCH MCHC RDW Plt Count MPV Neut % (Auto) Lymph % (Auto) [place] % (Auto) Eos % (Auto) Baso % (Auto) Neut # (Auto) Lymph # (Auto) [place] # (Auto) Eos # (Auto) Baso # (Auto) Nucleated RBC % (auto) Nucleated RBCs # Sodium Potassium Chloride Carbon Dioxide Anion Gap BUN Creatinine GFR Calculation Glucose POC Glucose 111 H 198 H 176 H Estimat Average Glucose Hemoglobin A1c Calculated Osmolality Calcium Iron TIBC % Saturation Unsat Iron Binding Total Bilirubin AST ALT Alkaline Phosphatase Total Protein Albumin Globulin 07/02/21 07/02/21 07/03/21 18:40 20:11 00:22 WBC RBC Hgb Hct MCV MCH MCHC RDW Plt Count MPV Neut % (Auto) Lymph % (Auto) [place] % (Auto) Eos % (Auto) Baso % (Auto) Neut # (Auto) Lymph # (Auto) [place] # (Auto) Eos # (Auto) Baso # (Auto) Nucleated RBC % (auto) Nucleated RBCs # Sodium Potassium Chloride Carbon Dioxide Anion Gap BUN Creatinine GFR Calculation Glucose POC Glucose 185 H 190 H 198 H Estimat Average Glucose Hemoglobin A1c Calculated Osmolality Calcium Iron TIBC % Saturation Unsat Iron Binding Total Bilirubin AST ALT Alkaline Phosphatase Total Protein Albumin Globulin 07/03/21 07/03/21 07/03/21 03:43 05:34 05:34 WBC 7.4 RBC 3.35 L Hgb 9.3 L Hct 30.4 L MCV 90.7 MCH 27.8 L MCHC 30.6 RDW 19.6 H Plt Count 259 MPV 11.6 H Neut % (Auto) 75.0 Lymph % (Auto) 9.6 [place] % (Auto) 12.7 Eos % (Auto) 0.0 Baso % (Auto) 0.4 Neut # (Auto) 5.55 Lymph # (Auto) 0.7 L [place] # (Auto) 0.9 Eos # (Auto) 0.0 Baso # (Auto) 0.0 Nucleated RBC % (auto) 0 Nucleated RBCs # 0.0 Sodium 142 Potassium 3.4 L Chloride 105 Carbon Dioxide 25 Anion Gap 15.4 BUN 7 Creatinine 0.6 L GFR Calculation 138.4 H Glucose 120 H POC Glucose 141 H Estimat Average Glucose Hemoglobin A1c Calculated Osmolality 293 Calcium 6.8 L Iron TIBC % Saturation Unsat Iron Binding Total Bilirubin 0.6 AST 34 ALT 16 Alkaline Phosphatase 371 H Total Protein 5.4 L Albumin 2.3 L Globulin 3.1 07/03/21 06:27 WBC RBC Hgb Hct MCV MCH MCHC RDW Plt Count MPV Neut % (Auto) Lymph % (Auto) [place] % (Auto) Eos % (Auto) Baso % (Auto) Neut # (Auto) Lymph # (Auto) [place] # (Auto) Eos # (Auto) Baso # (Auto) Nucleated RBC % (auto) Nucleated RBCs # Sodium Potassium Chloride Carbon Dioxide Anion Gap BUN Creatinine GFR Calculation Glucose POC Glucose 192 H Estimat Average Glucose Hemoglobin A1c Calculated Osmolality Calcium Iron TIBC % Saturation Unsat Iron Binding Total Bilirubin AST ALT Alkaline Phosphatase Total Protein Albumin Globulin Cardiac Studies: Echocardiogram 06/15/21
[2021-07-03] MEDS: metoclopramide 5 mg/mL SDV 2 mL 10 MG IVP (09:50)
--- NOTE | 2021-07-03 10:10 | XR_ITS ---
WS: [id number] Supine view of the abdomen CLINICAL INFORMATION: feeding tube placement COMPARISON: None. FINDINGS: Enteric tube with tip in the second portion of the duodenum. Distended air-filled loops of small suresh l in the left upper quadrant and mid abdomen. Dense stool in the colon. Air distended loops of small bowel appears new since July 02, 2021 Peg tube injection. Lumbar curve. Advanced spondylitic baker ges lumbar spine. XR/XR abdomen 1V* [id number] IMPRESSION: 1. Enteric tube with tip in the second portion the duodenum. 2. Air distended loops of small bowel in left upper quadrant mid abdomen. Derick elation for ileus or developing partial small bowel obstruction. Persistent air within the colon.
[2021-07-03 11:59] LABS: Glucose Point of Care 144 mg/dL (70-110)
--- NOTE | 2021-07-03 12:23 | P.DS_ITS ---
Discharge Providers Date of Admission: 07/01/21 22:02 Date of Discharge: July 03, 2021 Attending Provider at Admission: Bell Kowalski MD Attending Provider at Discharge: Frank Tobin MD Consults: Surgery: Dr. Banks Primary Care Provider: DAVID Davies Diagnoses at Discharge Discharge Diagnosis (1) Esophageal cancer: Status: Acute Reason for Visit Reason for Visit: LEAKING FEEDING TUBE/LOW BLOOD SUGAR Hospital Course Hospital Course Maximino Sandoval is a 56 year old male, with multiple comorbidities as listed below, chiefly esophageal cancer, currently with a feeding PEG in place, was recently discharged from the hospital on June 27 after presenting with hypoglycemia. On the last discharge sulfonylureas were discontinued, however it appears patient did not understand the discharge instructions and continued to take his sulfonylurea upon discharge from the hospital. He presented to the emergency room today with lethargy fatigue, found to have a blood glucose of 38, was given several pushes of 50% IV dextrose to maintain his blood sugar however continued to be hypoglycemic. He has since been started on a D10 infusion to maintain his blood sugar levels. Insulin and sulfonylureas have been discontinued. He is much more awake after correction of the hypoglycemia. He has had multiple feeding difficulties at home with leaking of his PEG tube, return of tube feeds. He continues to have some p.o. intake however is unable to completely swallow when most of it is eventually spit out. For tube feed abnormality surgery was consulted. Patient underwent abdominal series which showed normal functioning PEG tube. Patient has skin breakdown around the PEG tube placement for which patient was advised to have Dobbhoff tube placed. An attempt was made to place Dobbhoff tube at bedside but was unsuccessful so he was taken for EGD and above placement on 07/03 which was difficult due to advanced esophageal cancer. Multiple options of tube feeds were discussed with the patient along with hospice care. Patient and patient's family expressed wishes regarding hospice care and hence has been set up. He has been discharged home with hospice. Patient is advised to continue to withhold on glipizide. Physical Exam Narrative: EXAM NARRATIVE: General: No acute distress, AO x3 HEENT: PERRLA, pupils bilaterally equal and reactive, pallors not present Chest: Normal vesicular breath sounds, no added sounds, equal good air entry bilaterally CVS: S1-S2 regular, no murmurs, no tachycardia, no gallops, no rubs Abdomen: Soft, PEG in place with surrounding erythema Neuro: No focal deficits, no facial deformity, AO x3, power 5/5 in all limbs Discharge Data Data Completed and Pending: Completed Studies During Hospitalization Category Date Time Status [place] upper GI yanick rajput [id number] Routine Exams 07/02/21 05:41 Completed XR abdomen 1V* 74 018 Routine Exams 07/03/21 10:10 Completed XR chest 1V [place] [id number] Stat Exams 07/02/21 18:41 Completed Labs from last 24 hours 07/03/21 07/03/21 07/03/21 11:56 06:27 05:34 WBC RBC Hgb Hct MCV MCH MCHC RDW Plt Count MPV Neut % (Auto) Lymph % (Auto) [place] % (Auto) Eos % (Auto) Baso % (Auto) Neut # (Auto) Lymph # (Auto) [place] # (Auto) Eos # (Auto) Baso # (Auto) Nucleated RBC % (a uto) Nucleated RBCs # Sodium 142 Potassium 3.4 L Chloride 105 Carbon Dioxide 25 Anion Gap 15.4 BUN 7 Creatinine 0.6 L GFR Calculation 138.4 H Glucose 120 H POC Glucose 144 H 192 H Estimat Average Gl ucose Hemoglobin A1c Calculated Osmolal ity 293 Calcium 6.8 L Iron TIBC % Saturation Unsat Iron Binding Total Bilirubin 0.6 AST 34 ALT 16 Alkaline Phosphata se 371 H Total Protein 5.4 L Albumin 2.3 L Globulin 3.1 07/03/21 07/03/21 07/03/21 05:34 03:43 00:22 WBC 7.4 RBC 3.35 L Hgb 9.3 L Hct 30.4 L MCV 90.7 MCH 27.8 L MCHC 30.6 RDW 19.6 H Plt Count 259 MPV 11.6 H Neut % (Auto) 75.0 Lymph % (Auto) 9.6 [place] % (Auto) 12.7 Eos % (Auto) 0.0 Baso % (Auto) 0.4 Neut # (Auto) 5.55 Lymph # (Auto) 0.7 L [place] # (Auto) 0.9 Eos # (Auto) 0.0 Baso # (Auto) 0.0 Nucleated RBC % (a uto) 0 Nucleated RBCs # 0.0 Sodium Potassium Chloride Carbon Dioxide Anion Gap BUN Creatinine GFR Calculation Glucose POC Glucose 141 H 198 H Estimat Average Gl ucose Hemoglobin A1c Calculated Osmolal ity Calcium Iron TIBC % Saturation Unsat Iron Binding Total Bilirubin AST ALT Alkaline Phosphata se Total Protein Albumin Globulin 07/02/21 07/02/21 07/02/21 20:11 18:40 16:28 WBC RBC Hgb Hct MCV MCH MCHC RDW Plt Count MPV Neut % (Auto) Lymph % (Auto) [place] % (Auto) Eos % (Auto) Baso % (Auto) Neut # (Auto) Lymph # (Auto) [place] # (Auto) Eos # (Auto) Baso # (Auto) Nucleated RBC % (a uto) Nucleated RBCs # Sodium Potassium Chloride Carbon Dioxide Anion Gap BUN Creatinine GFR Calculation Glucose POC Glucose 190 H 185 H 176 H Estimat Average Gl ucose Hemoglobin A1c Calculated Osmolal ity Calcium Iron TIBC % Saturation Unsat Iron Binding Total Bilirubin AST ALT Alkaline Phosphata se Total Protein Albumin Globulin 07/02/21 07/02/21 07/02/21 13:11 05:20 05:20 WBC RBC Hgb Hct MCV MCH MCHC RDW Plt Count MPV Neut % (Auto) Lymph % (Auto) [place] % (Auto) Eos % (Auto) Baso % (Auto) Neut # (Auto) Lymph # (Auto) [place] # (Auto) Eos # (Auto) Baso # (Auto) Nucleated RBC % (a uto) Nucleated RBCs # Sodium Potassium Chloride Carbon Dioxide Anion Gap BUN Creatinine GFR Calculation Glucose POC Glucose 198 H Estimat Average Gl ucose 111 Hemoglobin A1c 5.5 Calculated Osmolal ity Calcium Iron 24 L TIBC 74 % Saturation 32.4 Unsat Iron Binding 50 L Total Bilirubin AST ALT Alkaline Phosphata se Total Protein Albumin Globulin Addt'l Data from Hospital Stay: Laboratory Results WBC 7.4 10^3/uL (4.0- 10.0) 07/03/21 05:34 RBC 3.35 10^6/uL (4.1 -5.3) L 07/03/21 05:34 Hgb 9.3 g/dL (11.7-16 .6) L 07/03/21 05:34 Hct 30.4 % (42.0-52.0 ) L 07/03/21 05:34 MCV 90.7 fl (80-94) 07/03/21 05:34 MCH 27.8 pg (28.0-34. 0) L 07/03/21 05:34 MCHC 30.6 g/dL (30.0-3 6.0) 07/03/21 05:34 RDW 19.6 % (12.1-15.1 ) H 07/03/21 05:34 Plt Count 259 10^3/cmm (130 -400) 07/03/21 05:34 MPV 11.6 fL (7.4-10.4 ) H 07/03/21 05:34 Neut % (Auto) 75.0 % 07/03/21 05:34 Lymph % (Auto) 9.6 % 07/03/21 05:34 [place] % (Auto) 12.7 % 07/03/21 05:34 Eos % (Auto) 0.0 % 07/03/21 05:34 Baso % (Auto) 0.4 % 07/03/21 05:34 Neut # (Auto) 5.55 10^3/uL (1.8 -7.7) 07/03/21 05:34 Lymph # (Auto) 0.7 10^3/uL (0.8- 4.8) L 07/03/21 05:34 [place] # (Auto) 0.9 10^3/uL (0.2- 0.9) 07/03/21 05:34 Eos # (Auto) 0.0 10^3/uL (0.0- 0.8) 07/03/21 05:34 Baso # (Auto) 0.0 10^3/uL (0.0- 0.1) 07/03/21 05:34 Nucleated RBC % (a uto) 0 % 07/03/21 05:34 Nucleated RBCs # 0.0 /100WBC 07/03/21 05:34 Sodium 142 mmol/L (136-1 45) 07/03/21 05:34 Potassium 3.4 mmol/L (3.5-5 .1) L 07/03/21 05:34 Chloride 105 mmol/L (98-10 7) 07/03/21 05:34 Carbon Dioxide 25 mmol/L (22-29) 07/03/21 05:34 Anion Gap 15.4 (5-19) 07/03/21 05:34 BUN 7 mg/dL (6-20) 07/03/21 05:34 Creatinine 0.6 mg/dL (0.7-1. 2) L 07/03/21 05:34 GFR Calculation 138.4 mL/min (90- 130) H 07/03/21 05:34 Glucose 120 mg/dL (65-115 ) H 07/03/21 05:34 POC Glucose 144 mg/dL (70-110 ) H 07/03/21 11:56 Estimat Average Gl ucose 111 07/02/21 05:20 Hemoglobin A1c 5.5 % (4.0-6.0) 07/02/21 05:20 Calculated Osmolal ity 293 mOsm/kg (285- 295) 07/03/21 05:34 Calcium 6.8 mg/dL (8.5-10 .5) L 07/03/21 05:34 Iron 24 ug/dL (59-158) L 07/02/21 05:20 TIBC 74 mcg/dl 07/02/21 05:20 % Saturation 32.4 % (20-50) 07/02/21 05:20 Unsat Iron Binding 50 ug/dL (112-347 ) L 07/02/21 05:20 Total Bilirubin 0.6 mg/dL (0.15-1 .2) 07/03/21 05:34 AST 34 U/L (0-40) 07/03/21 05:34 ALT 16 U/L (0-41) 07/03/21 05:34 Alkaline Phosphata se 371 IU/L (40-130) H 07/03/21 05:34 Total Protein 5.4 g/dL (6.6-8.7 ) L 07/03/21 05:34 Albumin 2.3 g/dL (3.5-5.2 ) L 07/03/21 05:34 Globulin 3.1 g/dL (1.3-4.6 ) 07/03/21 05:34 Impressions Upper GI Series 07/02/21 05:41 Impression: Satisfactory injection of Gastrografin into the PEG tube with no evidence of leakage. Chest X-Ray 07/02/21 18:41 IMPRESSION: 1. Feeding tube tip most likely located within a large hiatal hernia. Abdomen X-Ray 07/03/21 10:10 IMPRESSION: 1. Enteric tube with tip in the second portion the duodenum. 2. Air distended loops of small bowel in left upper quadrant mid abdomen. Correlation for ileus or developing partial small bowel obstruction. Persistent air within the colon. Vitals: Last Vital Signs Temp 97.9 F 07/03/21 11:06 Pulse 80 07/03/21 11:21 Resp 18 07/03/21 11:21 BP 131/88 07/03/21 11:21 Pulse Ox 93 07/03/21 11:21 Discharge Plan Discharge Patient Disposition: Hospice - Home Condition: Stable Prescriptions: Continued (DME) Wheelchair See Rx Instructions .Route .MEDSUPPLY Qty: 1 RF: 0 metoclopramide HCl [Reglan] 5 mg tablet 5 mg PO TID 30 Days Qty: 90 RF: 2 nitroglycerin 0.4 mg tablet, sublingual See Rx Instructions .ROUTE .COMPLEX Qty: 25 RF: 0 folic acid 1 mg tablet 1 mg PO DAILY@0830 RF: 0 ondansetron HCl 4 mg tablet 4 mg PO Q8H PRN (Reason: NAUSEA/VOMITING) RF: 0 prochlorperazine maleate 10 mg tablet 10 mg PO Q4H PRN (Reason: NAUSEA/VOMITING) RF: 0 dexamethasone 4 mg tablet See Rx Instructions .ROUTE .COMPLEX RF: 0 Hold Instructions: see oncology Humulin R Regular U-100 Insuln 100 unit/mL solution See Rx Instructions .ROUTE .COMPLEX RF: 0 lorazepam 1 mg tablet 0.5 - 1 mg PO TID PRN (Reason: Anxiety) RF: 0 Hold Instructions: see pcp pantoprazole 40 mg tablet,delayed release (DR/EC) 40 mg PO DAILY RF: 0 silver sulfadiazine [Silvadene] 1 % cream 1 applic topical BID PRN (Reason: wound healing) Qty: 50 RF: 0 prednisone 20 mg tablet 30 mg PO BID RF: 0 amino acids-whey prot conc,iso 20 gram-110 kcal/28 gram Powder See Rx Instructions .ROUTE .COMPLEX RF: 0 magnesium 1 tab PO QAM RF: 0 sertraline [Zoloft] 100 mg tablet 100 mg PO QAM RF: 0 nystatin 100,000 unit/gram cream See Rx Instructions .ROUTE .COMPLEX RF: 0 bupropion HCl 150 mg tablet extended release 24 hr 150 mg PO QAM RF: 0 tizanidine 4 mg capsule 4 mg PO Q12H RF: 0 (DME) Stomahesive Skin Barrier 1 1/2 misc See Rx Instructions .Route Qty: 10 RF: 0 (DME) Ostomy Appliance Belt Misc See Rx Instructions .Route Qty: 1 RF: 0 (DME) ostomy kit Kit See Rx Instructions .Route Qty: 1 RF: 0 ferrous sulfate 300 mg (60 mg iron)/5 mL liquid 60 mg PO DAILY 30 Days Qty: 120 RF: 1 fentanyl 25 mcg/hr patch 72 hour 1 patch transdermal Q72H Qty: 5 RF: 0 oxycodone 5 mg tablet 5 mg PO Q6H PRN (Reason: pain) Qty: 20 RF: 0 ketoconazole 2 % cream 1 applic TOPICAL TID RF: 0 lovastatin 20 mg tablet 20 mg PO BEDTIME RF: 0 Discontinued glipizide 5 mg tablet extended release 24hr 5 mg PO DAILY RF: 0 Discharge Orders: Discharge Order (Routine); Ordered 07/03/21 Ordered By: Frank Tobin Referrals: Stephany Villalpando, [facility] [Primary Care Provider] - Discharge Diet: Resume prior tube feeds Discharge Activity: Resume usual activity Patient Instructions: GI Discharge Instructions, Opioid Safety Activity Restrictions/Additional Instructions: Hospice care. Please do not take glipizide anymore. Please start tube feeds as per recommendations from Dr. Banks. Discharge Attestations Time Spent in Discharge Care*: greater than 30 min Specific Discharge Activities: educating patient, educating and/or supporting family/caregiver, discussing with pcp/other providers, discussing with case assistant/social workers/dc planners, documenting/other paperwork and evaluating patient/reviewing data Status at Discharge: Cognitive status at discharge: cognitively intact , Behavioral status at discharge: cooperative , Functional status at discharge: other assisted ambulation Overall status at discharge: patient is back to baseline Quality Metrics Clinical Quality Measures During this hospital stay, did patient experience: None Coding Level of Care Code Acute Chg FW DC note Diagnoses Esophageal cancer C15.9
[2021-07-03] MEDS: ALPRAZolam 0.5 mg Tablet PO (12:59)
--- NOTE | 2021-07-03 13:02 | ANE.PACU2 ---
Inpatient post-anesthesia follow up: Airway intact: Yes Vital signs: Temperature 97.9 F Pulse Rate 80 Respiratory Rate 18 Blood Pressure 131/88 Pulse Oximetry 93 Oxygen Delivery Me thod Room Air Oxygen Flow Rate 10 Fraction of Inspir ed Oxygen Hydration adequate: Yes Nausea and vomiting: No Pain level: 3 Mental status: Baseline
--- NOTE | 2021-07-03 13:24 | PC.CHAP ---
Pastoral Care Encounter/Spiritual Assessment Type of Contact [] Declined playground supervisor visit [] Patient/Family/Request visit [] Outpatient visit [] Follow-up visit [] Physician referral [] Code/Alert [] Routine visit [] Staff referral [] Actively dying [] Patient sleeping [] Family support [] [xx] Out of room [] Palliative care [] [] Receiving care in room [] Pre-surgical visit [] Trauma [] Long length of stay [] ICU visit [] Other: Relational/Emotional Strength [] Patient feels connected with others/family/visitors/staff [] Distress [] Loneliness/isolation [] Abandonment Spirituality of Patient [] Person of Holli [] Attends Sabianism of their Holli [] Believes in Prayer [] Reads Bible or Lutheran materials [] There are Spiritual issues to be addressed Healthcare Economics Consultant Interventions [] Prayer [] Active listening [] Non-anxious presence [] Spiritual/emotional support [] Crisis/trauma care [] Spiritual counseling [] Bereavement support [] Provided bereavement packet [] Provided Bible/devotional materials [] Provided toy/stuffed animal, coloring book to patient or family member [] Provided Communion [] Anointing/[place] [] Salvation [] Completed spiritual assessment [] Other: Impact on Illness or Injury [] Angry [] Fearful [] Anxious [] Often cries [] Exhaustion [] Unable to work [] Unable to attend latter-day [] Unable to walk/stand [] Unable to read [] Unable to drive [] Unable to eat/drink [] Unable to sleep [] Unable to be with family [] Patient intubated [] Other: Summary Time spent with patient
--- NOTE | 2021-07-04 02:17 | PM.OP ---
Operative Report Date of procedure: July 04, 2021 Pre-op Diagnosis: 1. Metastatic esophageal cancer 2. Leakage around gastrostomy tube 3. Dysphagia Post-op Diagnosis: 1. Near obstructing metastatic esophageal cancer 2. Gastrostomy tube well positioned in the gastric lumen Procedure Done: 1. Esophagogastroduodenoscopy without biopsy 2. Nasal jejunal feeding tube placement via endoscopy 3. Fluoroscopic guidance and interpretation for placement of the Dobhoff feeding tube in the third portion of the duodenum Pathology: none sent Surgeon: Wayne Banks Anesthesia: General Condition: stable Disposition: PACU Procedure: The patient was taken to the operating room and intubated under general anesthesia. A bite block was placed and a gastroscope was introduced and advanced into the esophagus. At the GE junction there was a 8 cm segment of obstructing esophageal cancer and I spent about 15 minutes trying to find the lumen within the tumor mass into the stomach. I was finally able to advance into the stomach and the gastroscope was advanced up to the third portion of the duodenum. There was no abnormalities noted in the stomach as well as the duodenum. A nasojejunal tube was introduced and advanced with the gastroscope into the duodenum. The wire within the Dobbhoff tube was removed while ensuring adequate positioning of the tip with a gastroscope. The gastroscope was withdrawn and as the patient was about to be extubated, it was noted that there was about 15 cm of the Dobbhoff tube coiled within his mouth. Fluoroscopy showed that the tip of the Dobbhoff tube was now in the body of the stomach. The Dobbhoff tube was removed and reintroduced with the gastroscope again encountered significant difficulty in identifying the lumen through the esophageal cancer. After finally passing into the gastric lumen the Dobbhoff tube was advanced and positioned within the third portion of the duodenum. The position was confirmed under fluoroscopy. The wire was removed and the gastroscope was slowly removed under fluoroscopy ensuring that the tip of the Dobbhoff tube was within the third portion of the duodenum. The Dobbhoff tube was secured, patient was extubated and transferred to recovery room in stable condition.
== END 2021-07-03 15:35 | disposition hospice, home (50) ==
LOC: ER 22:10 → MEDSURG 07-02 00:55
PROVIDERS: Family Medicine; Surgery; Admitting Provider Student in an Organized Health Care Education/Training Program; Emergency Provider Emergency Medicine; PCP Nurse Practitioner; Visit Provider Student in an Organized Health Care Education/Training Program
PROC: 0DJ08ZZ Inspection of Upper Intestinal Tract, Via Natural or Artificial Opening Endoscopic (ICD-10-PCS; CPT 43235; principal; 2021-07-03 08:30)
DX: C15.9 Malignant neoplasm of esophagus, unspecified (principal); C79.9 Secondary malignant neoplasm of unspecified site; K94.23 Gastrostomy malfunction; J44.9 Chronic obstructive pulmonary disease, unspecified; I25.10 Atherosclerotic heart disease of native coronary artery without angina pectoris; I25.2 Old myocardial infarction; Z95.5 Presence of coronary angioplasty implant and graft; E78.5 Hyperlipidemia, unspecified; M06.9 Rheumatoid arthritis, unspecified; E11.649 Type 2 diabetes mellitus with hypoglycemia without coma; Z79.4 Long term (current) use of insulin; E11.22 Type 2 diabetes mellitus with diabetic chronic kidney disease; I12.9 Hypertensive chronic kidney disease with stage 1 through stage 4 chronic kidney disease, or unspecified chronic kidney disease; N18.9 Chronic kidney disease, unspecified
CPT/HCPCS: 43241; 36415; 36416; 43235; 71045; 74018; 74240; 80053; 82962; 83036; 83540; 83550; 85025; 96361; 96372; 96374; 96375; 96376; 99285; C9113; G0378; J0330; J1100; J1644; J2370; J2405; J2704; J2765; J3010; J7030; J7512; Q9963